=== PATIENT | female | born 1965 | race Caucasian/White ===

== ENCOUNTER 2019-07-12 06:00 | Outpatient (CLI) | payer MEDICARE, MEDICAID, SELFPAY | END 2019-07-12 06:01 | disposition home or self-care (01) | LOC: SOT 08-01 15:34 | PROVIDERS: Family Provider Internal Medicine; PCP Internal Medicine; Visit Provider Internal Medicine | DX: Z76.89 Persons encountering health services in other specified circumstances (principal) ==

== ENCOUNTER 2019-07-19 22:24 | Inpatient (IN) | payer MEDICARE, MEDICAID, SELFPAY ==
[2019-07-19 22:25] VITALS: BP 175/133; PULSE 124; RESP 27; TEMP 37.4; O2SAT 97; BMI 61.7
--- NOTE | 2019-07-19 22:25 | XRR_ITS ---
PROCEDURE INFORMATION: Exam: XR Chest, 1 View Exam date and time: 07/19/2019 10:46 PM Age: 54 years old Clinical indication: Shortness of breath; Chest pain; Type not specified; Additional info: Dyspnea TECHNIQUE: Imaging protocol: XR of the chest Views: 1 view. COMPARISON: CR Chest 1 [place] [id number] 06/13/2019 2:19 PM FINDINGS: Lungs: Allowing for rotation and overlying breast artifacts, the lungs are clear. Pleural space: Unremarkable. No pleural effusion. No pneumothorax. Heart/Mediastinum: Limited evaluation. Bones/joints: Unremarkable. XR/XR chest 1V portable [id number] IMPRESSION: Lungs grossly clear
--- NOTE | 2019-07-19 22:26 | ECG_ITS ---
Measurements Intervals [place] Rate: 115 P: [place]: 0 QRS: 64 QRSD: 85 T: 36 QT: 316 QTc: 438 ATRIAL FIBRILLATION WITH RAPID VENTRICULAR RESPONSE LOW QRS VOLTAGE IN EXTREMITY LEADS POSSIBLE ANTERIOR MYOCARDIAL INFARCTION , PROBABLY OLD Compared to ECG 06/13/2019 16:09:44 Myocardial infarct finding now present Right-axis deviation no longer present Electronically Signed On 07-20-2019 13:51:20 TAX ASSISTANT by Renee Gutierrez M.D. [id number]
--- NOTE | 2019-07-19 22:26 | ED_ITS ---
Entered by Leilani Guzman, acting as scribe for Dory Ruvalcaba MD HPI - SOB/Dyspnea General: Chief Complaint: Shortness of Breath/Dyspnea Stated Complaint: SOB Time Seen by Provider: 07/19/19 22:25 Source: patient and EMS Mode of arrival: EMS Limitations: physical limitation (pt cannot stand alone) History of Present Illness: HPI Narrative: 54 y/o female presents to the ED with complaint of SOB and chest pain. EMS reports hx of asthma and pneumonia. Pt states she was recently admitted here for the similar symptoms. Pt reports having vertigo and is unable to walk; she can transfer, with assistance. Pt states she does not wear O2 at home. MD elicited complaint: shortness of breath (speaks in short phrases) and chest pain Pertinent past history: asthma and pneumonia Onset (ago): hour(s) Context: recent illness (hospitalized with similar symptoms) Timing: progressively worsening Severity: moderate Exacerbating factors: exertion, movement and talking Known history of: asthma Associated symptoms: Reports chest pain; Deny abdominal pain, fever(s), nausea, polyuria or vomiting Related Data: Home oxygen amount: none Review of Systems Const: Denies: fever or chills Eyes: Denies: change in vision ENMT: Denies: throat pain or mouth pain Card: Reports: chest pain and edema Resp: Reports: shortness of breath GI: Denies: abdominal pain, nausea, vomiting or diarrhea : Denies: difficulty urinating Musc: Denies: back pain or joint pain Skin/Breast: Denies: rash Neuro: Denies: headache or behavioral changes Psych: Denies: depression Endo: Denies: excessive urination Leonid/Lymph: Denies: easy bruising All/Imm: Denies: hives PFSH ED PFSH: Statuses (acute, chronic, etc) shown below reflect problem list status as previously entered and may not be historically accurate Medical History (Updated 07/20/19 @ 01:45 by Dory Ruvalcaba MD) Asthma (Acute) Social History Smoking and tobacco status: former smoker Physical Exam Const: COMMON NORMALS: no apparent distress, oriented x3 and healthy appearing HENMT: COMMON NORMALS: normocephalic and external nose normal HEAD & SCALP: normocephalic NOSE: external nose normal Eye: COMMON NORMALS: PERRL PUPIL: Yes PERRL Neck/C-Spine: COMMON NORMALS: full ROM and no lymphadenopathy Chest: COMMONS NORMALS: inspection of chest normal Resp: COMMON NORMALS: normal respiratory effort, no use of accessory muscles and clear to auscultation bilaterally AUSCULTATION: clear to auscultation bilaterally Cardio: COMMON NORMALS: regular rate and regular rhythm RATE: regular rate RHYTHM: regular rhythm GI: COMMON NORMALS: normal to inspection, nondistended, normoactive bowel sounds, soft to palpation, non-tender and no masses PALPATION: Yes soft Back/Pelvis: THORACIC SPINE/UPPER BACK: Yes normal to inspection Extremity: COMMON NORMALS: normal to inspection, full ROM and normal capillary refill Neuro: COMMON NORMALS: oriented x3 Psych: COMMON NORMALS: mental status grossly normal and cooperative Skin: COMMON NORMALS: no rashes or lesions noted GENERAL SKIN EXAM: no rashes or lesions noted Course Vital Signs: Vital signs: Vital Signs Temperature 99.3 F 07/19/19 22:25 Pulse Rate 116 H 07/20/19 02:20 Respiratory Rate 26 H 07/20/19 02:20 Blood Pressure 179/126 07/20/19 02:20 Pulse Oximetry 96 07/20/19 02:20 MDM - SOB/Dyspnea MDM Narrative: Medical decision making narrative: Patient presents here with shortness of breath with asthma exacerbation. Patient is requiring 2 L of oxygen here to stay above 90%. Patient has no signs of pulmonary embolism or cardiac cause. I spoke to hospitalist Dr. Marie who will admit. Lab Data: Labs: Lab Results 07/19/19 07/19/19 07/19/19 Range/Units 22:35 22:35 22:35 WBC 10.6 H (4.0-10.0) 10^3/ uL RBC 4.15 (4.1-5.3) 10^6/u L Hgb 10.1 L (11.5-15.3) g/dL Hct 35.5 L (37.0-47.0) % MCV 85.5 (81-99) fL MCH 24.3 L (28.0-34.0) pg MCHC 28.5 L (30.0-36.0) g/dL RDW 17.2 H (12.1-15.1) % Plt Count 106 L (130-400) 10^3/c mm MPV 11.5 H (7.4-10.4) fL Neut % (Auto) 80.7 % Lymph % (Auto) 10.7 % [place] % (Auto) 5.5 % Eos % (Auto) 2.0 % Baso % (Auto) 0.5 % Neut # (Auto) 8.5 H (1.8-7.7) 10^3/u L Lymph # (Auto) 1.1 (0.8-4.8) 10^3/u L [place] # (Auto) 0.6 (0.2-0.9) 10^3/u L Eos # (Auto) 0.2 (0.0-0.8) 10^3/u L Baso # (Auto) 0.1 (0.0-0.1) 10^3/u L Nucleated RBC % (a uto) 0 % Nucleated RBCs # 0.0 /100WBC Sodium 137 (136-145) mmol/L Potassium 4.1 (3.5-5.1) mmol/L Chloride 101 (98-107) mmol/L Carbon Dioxide 22 (22-29) mmol/L Anion Gap 18.1 (5-19) BUN 17 (6-20) mg/dL Creatinine 1.6 H (0.5-0.9) mg/dL GFR Calculation 33.6 L (90-130) mL/min Glucose 132 H (74-109) mg/dL Calcium 9.4 (8.6-10.0) mg/Dl Total Bilirubin 0.9 (0.15-1.2) mg/dL AST 16 (0-32) U/L ALT 29 (0-33) U/L Alkaline Phosphata se 99 (35-105) IU/L Troponin T Baselin e 25 H (0-10) ng/mL Troponin T 120 Min [place] (0-10) ng/mL Delta Troponin T (0-10) ABS# NT-Pro-B Natriuret Pep 1590 H (0-125) pg/mL Total Protein 7.1 (6.6-8.7) g/dL Albumin 3.8 (3.5-5.2) g/dL Globulin 3.3 (1.3-4.6) g/dL 07/20/19 Range/Units 00:25 WBC (4.0-10.0) 10^3/ uL RBC (4.1-5.3) 10^6/u L Hgb (11.5-15.3) g/dL Hct (37.0-47.0) % MCV (81-99) fL MCH (28.0-34.0) pg MCHC (30.0-36.0) g/dL RDW (12.1-15.1) % Plt Count (130-400) 10^3/c mm MPV (7.4-10.4) fL Neut % (Auto) % Lymph % (Auto) % [place] % (Auto) % Eos % (Auto) % Baso % (Auto) % Neut # (Auto) (1.8-7.7) 10^3/u L Lymph # (Auto) (0.8-4.8) 10^3/u L [place] # (Auto) (0.2-0.9) 10^3/u L Eos # (Auto) (0.0-0.8) 10^3/u L Baso # (Auto) (0.0-0.1) 10^3/u L Nucleated RBC % (a uto) % Nucleated RBCs # /100WBC Sodium (136-145) mmol/L Potassium (3.5-5.1) mmol/L Chloride (98-107) mmol/L Carbon Dioxide (22-29) mmol/L Anion Gap (5-19) BUN (6-20) mg/dL Creatinine (0.5-0.9) mg/dL GFR Calculation (90-130) mL/min Glucose (74-109) mg/dL Calcium (8.6-10.0) mg/Dl Total Bilirubin (0.15-1.2) mg/dL AST (0-32) U/L ALT (0-33) U/L Alkaline Phosphata se (35-105) IU/L Troponin T Baselin e (0-10) ng/mL Troponin T 120 Min [place] 25.54 H (0-10) ng/mL Delta Troponin T 0.54 (0-10) ABS# NT-Pro-B Natriuret Pep (0-125) pg/mL Total Protein (6.6-8.7) g/dL Albumin (3.5-5.2) g/dL Globulin (1.3-4.6) g/dL Imaging Data^: CXR: Attestation: I personally reviewed and interpreted this imaging study as follows: My impression: no acute findings EKG Data^: EKG 1: Attestation: I personally reviewed and interpreted this EKG as follows: EKG Interpretation Date: 07/19/19 EKG interpretation time: 22:32 Interpretation: Afib hr [address] or t wave abnormalities qrs 85 qtc 384 EKG 2: Attestation: I personally reviewed and interpreted this EKG as follows: EKG Interpretation Date: 07/20/19 EKG interpretation time: 00:34 Interpretation: afib hr [address] or t wave abnormalities Discharge Plan Discharge Patient Disposition: Admitted As Inpatient Admit Provider: Diane Marie Clinical Impression: Asthma Qualifiers: Asthma severity: moderate Asthma persistence: unspecified Asthma complication type: with acute exacerbation Qualified Code(s): J45.901 - Unspecified asthma with (acute) exacerbation Condition: Stable Referrals: Mervat Nguyen [Primary Care Provider] - Coding Level of Care Code ED Orthopedic Shoes Salesperson for Chg Fwd Exam Problem Focused The documentation recorded by the Thomas geller Ashley, accurately reflects the service I personally performed and the decisions made by me, Dory Ruvalcaba MD Jul 19, 2019 22:24
--- NOTE | 2019-07-19 22:35 | PC.NURSE ---
[pt placed on monitor, ekg performed and given to ER physician. RN in room.
[2019-07-19 22:37] VITALS: BP 188/99; PULSE 117; RESP 26; O2SAT 95; O2SAT 98
[2019-07-19 22:46] LABS: Basophils # 0.1 10^3/uL (0.0-0.1); Basophils % 0.5 %; Eosinophils # 0.2 10^3/uL (0.0-0.8); Hematocrit 35.5 % (37.0-47.0); Hemoglobin 10.1 g/dL (11.5-15.3); Lymphocytes # 1.1 10^3/uL (0.8-4.8); Lymphocytes % 10.7 %; Mean Corpuscular HGB Conc 28.5 g/dL (30.0-36.0); Mean Corpuscular Hemoglobin 24.3 pg (28.0-34.0); Mean Corpuscular Volume 85.5 fL (81-99); Mean Platelet Volume 11.5 fL (7.4-10.4); Monocytes # 0.6 10^3/uL (0.2-0.9); Monocytes % 5.5 %; Neutrophils # 8.5 10^3/uL (1.8-7.7); Neutrophils % 80.7 %; Nucleated Red Blood Cells % 0 %; Platelet Count 106 10^3/cmm (130-400); Red Blood Count 4.15 10^6/uL (4.1-5.3); Red Cell Distribution Width 17.2 % (12.1-15.1); White Blood Count 10.6 10^3/uL (4.0-10.0)
[2019-07-19 22:49] VITALS: PULSE 118; RESP 18; O2SAT 98
[2019-07-19] MEDS: ipratropium-albuterol 3 mL Neb INHALATION (22:49)
[2019-07-19 22:52] VITALS: PULSE 119; RESP 20; O2SAT 97
[2019-07-19 22:54] VITALS: RESP 27; O2SAT 99
[2019-07-19] MEDS: morphine 4 mg/mL SDV 1 mL IVP (22:54)
[2019-07-19 22:59] LABS: Troponin(5th) Baseline 25 ng/mL (0-10)
[2019-07-19 23:07] LABS: Alanine Aminotransferase 29 U/L (0-33); Albumin Level 3.8 g/dL (3.5-5.2); Alkaline Phosphatase 99 IU/L (35-105); Anion Gap 18.1 (5-19); Aspartate Amino Transferase 16 U/L (0-32); Blood Urea Nitrogen 17 mg/dL (6-20); Calcium 9.4 mg/Dl (8.6-10.0); Carbon Dioxide 22 mmol/L (22-29); Chloride 101 mmol/L (98-107); Globulin 3.3 g/dL (1.3-4.6); Glomerular Filtration Rate 33.6 mL/min (90-130); Glucose 132 mg/dL (74-109); NT Pro B Type Natriuretic Pept 1590 pg/mL (0-125); Potassium 4.1 mmol/L (3.5-5.1); Sodium 137 mmol/L (136-145); Total Bilirubin 0.9 mg/dL (0.15-1.2); Total Protein 7.1 g/dL (6.6-8.7)
[2019-07-19 23:22] LABS: Slide Review Slide Review Perform
[2019-07-19] MEDS: FUROsemide 10 mg/mL SDV 4mL 40 MG IVP (23:36)
[2019-07-19 23:37] VITALS: BP 195/113; PULSE 119; RESP 25; O2SAT 99
[2019-07-19] MEDS: labetalol 5 mg/mL SDV 20mL 20 MG IVP (23:56)
[2019-07-20] VITALS (35 sets, daily range): BP systolic 134–195; BP diastolic 88–132; PULSE 94–129; RESP 17–110; TEMP 36.6–37.3; O2SAT 88–98
--- NOTE | 2019-07-20 00:26 | ECG_ITS ---
Measurements Intervals [place] Rate: 109 P: [place]: 0 QRS: 73 QRSD: 90 T: 32 QT: 353 QTc: 475 ATRIAL FIBRILLATION WITH RAPID VENTRICULAR RESPONSE POSSIBLE ANTERIOR MYOCARDIAL INFARCTION , PROBABLY OLD Compared to ECG 06/13/2019 16:09:44 Myocardial infarct finding now present Right-axis deviation no longer present Electronically Signed On 07-20-2019 14:00:00 SYSTEMS CONSULTANT by Renee Gutierrez M.D. [id number]
[2019-07-20 01:05] LABS: Troponin 5 2HR 25.54 ng/mL (0-10)
[2019-07-20 01:15] LABS: Troponin 5 2HR Delta 0.54 ABS# (0-10)
[2019-07-20] MEDS: cefTRIAXone 1,000 MG in sodium chloride 0.9% (plus) 50 ML 100 MG IV (01:45)
--- NOTE | 2019-07-20 01:48 | PC.NURSE ---
per ED physician to see how patient does without oxygen on. oxygen was taken off patient while nurse was in room. patient was up to bedside commode during this time. upon exertion, patients O2 dropped down to 86% patient became very short of breath. patient was able to hold oxygen at 91% approximately 2 minutes after the exertion. ed physician notified of this.
[2019-07-20] MEDS: azithromycin 500 MG in sodium chloride 0.9% 250 ML 250 MG IV (02:34)
--- NOTE | 2019-07-20 03:26 | P.HP_ITS ---
Providers/Chief Complaint Admitting Physician: Diane Marie MD Primary Care Provider: Mervat Nguyen Chief Complaint: SOB History of Present Illness Ana Lilia Miller is a 54 year old female who presented to the emergency room with chief complaint of difficulty breathing. Symptoms have been gradually coming on. She has had a cough occasionally productive of sputum. She is been getting more short of breath with decreasing exertion. She is unable to lie flat. She is also had some palpitations and a sensation of being a bit dizzy. She was noted to be hypoxemic and placed on oxygen prior to arrival. She is not normally on oxygen. Attempts to take her off of oxygen here resulted in oxygen saturations dropping down to 88%. She was noted to be in atrial fibrillation wi th rapid ventricular response alternating with rate controlled A. fib. She had not had her evening doses of her medicines prior to coming into the emergency room. She reports some low-grade fevers and general malaise. No nausea or vomiting. She has gained some weight and has been more edematous all the way up to her lower abdomen. Denies history of any heart failure. Given persistent hypoxemia requiring oxygen therapy she was being admitted for further evaluation and treatment as indicated. She did receive breathing treatment and some antibiotics in the emergency room. Chest x-ray did not show definitive acute infiltrative process but was limited by body habitus. Review of Systems Const: Reports: fever (Subjective), change in weight (Weight gain), fatigue and malaise Eyes: Reports: change in vision ENMT: Reports: other (Reports facial swelling); Denies: throat pain Card: Reports: chest pain (Intermittent), palpitations, irregular heart rhythm, edema, shortness of breath on exertion and shortness of breath when lying down; Denies: syncope Resp: Reports: productive cough and non-productive cough; Denies: pain on inspiration or coughing up blood GI: Reports: abdominal pain (More abdominal wall pain from the swelling); Denies: nausea, vomiting, diarrhea or constipation : Reports: urinary frequency; Denies: difficulty urinating Musc: Reports: joint pain; Denies: redness Skin/Breast: Reports: itching and sores (And scratches in varying degrees of healing) Neuro: Reports: headache and other (General but nonfocal weakness) Psych: Reports: anxiety (Associated with difficulty breathing) Medications/Allergies Allergies Allergy/AdvReac Type Severity Reaction Status Date / Time Tetracyclines Allergy Severe ALGY-Anaphy Verified 07/19/19 22:35 laxis wool Allergy Intermediate ALGY-Hives Verified 07/19/19 22:35 adhesive AdvReac Unknown Verified 07/19/19 22:35 Artificial Sweetners AdvReac Intermediate ADR-Headach Uncoded 07/20/19 04:24 e Additional Medication Information Additional Medication Information: Patient reports that she has been compliant with her Eliquis, carvedilol, amlodipine. Denies being on any fluid pills. Has been taking a medication for diabetes. Not able to tell me specifics beyond this. PFSH Acute PFSH: Statuses (acute, chronic, etc) shown below reflect problem list status as previously entered and may not be historically accurate Medical History (Updated 07/20/19 @ 05:29 by Diane Marie MD) Atrial fibrillation (Acute) Chronic kidney disease, stage III (moderate) (Acute) Cr has ranged 1.6-2.1 since 11/27 Diabetes mellitus type 2, noninsulin dependent (Acute) last A1c in 03/30 was 7.4 Hypertension (Acute) Hypothyroidism (Acute) last TSH in 03/30 was 6.18 Morbid obesity with BMI of 60.0-69.9, adult (Acute) DELMIS (obstructive sleep apnea) (Acute) Reports not currently compliant with therapy due to contaminated machine Surgical History History of dental surgery (Acute) Status post biopsy of skin (Acute) Family History Other Chronic kidney disease (CKD) Diabetes Hypertension Thyroid disease Social History Smoking and tobacco status: former smoker Alcohol intake: never Substance/Drug Use: never Vitals/I&O/Wt Last Vital Signs Temp 99.1 F 07/20/19 02:58 Pulse 124 H 07/20/19 02:58 Resp 28 H 07/20/19 02:58 BP 182/113 07/20/19 02:58 Pulse Ox 96 07/20/19 02:58 07/19/19 07/19/19 07/20/19 14:59 22:59 06:59 Intake Total 50 / 50 Balance 50 / 50 Weight last 48 hrs Weight 195.045 kg Physical Exam Const: COMMON NORMALS: oriented x3 and alert GENERAL APPEARANCE: in distress (Mild to moderate) NUTRITIONAL APPEARANCE: obese morbidly obese HENMT: COMMON NORMALS: normocephalic, head/scalp atraumatic and moist oral mucous membranes TEETH & GINGIVA: Yes fair dentition Eye: COMMON NORMALS: PERRL and EOMs intact bilaterally Neck/C-Spine: COMMON NORMALS: supple Resp: COMMON NORMALS: no use of accessory muscles, clear to auscultation bilaterally and percussion normal Cardio: JUGULAR VENOUS DISTENTION: JVD positive to the level of the angle of the jaw RATE: tachycardic RHYTHM: abnormal rhythm irregularly irregular GI: COMMON NORMALS: non-tender INSPECTION: Yes localized swelling and Yes pannus present Extremity: GENERAL: Yes edema (3-4+) Neuro: COMMON NORMALS: moves all extremities and no focal motor deficits Psych: COMMON NORMALS: cooperative and affect normal Skin: NARRATIVE SKIN EXAM: peau d'orange, lower abd and suprapubic panus. Chronic stasis changes lower extremities. various scars from old wounds Data Other Data: Other data: Short CBC 07/19/19 Range/Units 22:35 WBC 10.6 H (4.0-10.0) 10^3/ uL Hgb 10.1 L (11.5-15.3) g/dL Hct 35.5 L (37.0-47.0) % Plt Count 106 L (130-400) 10^3/c mm BMP 07/19/19 22:35 Sodium 137 Potassium 4.1 Chloride 101 Carbon Dioxide 22 BUN 17 Creatinine 1.6 H Glucose 132 H Calcium 9.4 Liver Function 07/19/19 Range/Units 22:35 Total Bilirubin 0.9 (0.15-1.2) mg/dL AST 16 (0-32) U/L ALT 29 (0-33) U/L Alkaline Phosphata se 99 (35-105) IU/L Albumin 3.8 (3.5-5.2) g/dL Laboratory Tests 07/19/19 07/20/19 22:35 00:25 Delta Troponin T 0.54 NT-Pro-B Natriuret Pep 1590 H A&P Assessment and plan (1) Shortness of breath: Clinically appears to be from volume overload. Suspect pulmonary hypertension from untreated DELMIS and obesity hypoventilation contributing. Has associated hypoxemia and is requing oxygen which she is not normally on. Last echo in 03/30 was technically difficult study but LVEF was noted to be likely within normal limits Status: Acute Code(s): R06.02 - Shortness of breath (2) Atrial fibrillation: Currently with intermittent RVR, in part due to not having medications this evening Status: Acute Qualifiers: Atrial fibrillation type: longstanding persistent Qualified Code(s): I48.11 - Longstanding persistent atrial fibrillation Code(s): I48.91 - Unspecified atrial fibrillation (3) Hypertension: suboptimally controllled Status: Acute Qualifiers: Hypertension type: renovascular hypertension Qualified Code(s): I15.0 - Renovascular hypertension Code(s): I10 - Essential (primary) hypertension (4) Chronic kidney disease, stage III (moderate): Look to be near baseline creatinine Status: Acute Code(s): N18.3 - Chronic kidney disease, stage 3 (moderate) (5) DELMIS (obstructive sleep apnea): long standing not compliant with therapy for about a year due to contaminated unit Status: Acute Code(s): G47.33 - Obstructive sleep apnea (adult) (pediatric) (6) Diabetes mellitus type 2, noninsulin dependent: on oral medications, last A1c in 03/30 was 7.4 Status: Acute Code(s): E11.9 - Type 2 diabetes mellitus without complications (7) Hypothyroidism: last TSH in 03/30 was 6.18 Status: Acute Qualifiers: Hypothyroidism type: acquired Qualified Code(s): E03.9 - Hypothyroidism, unspecified Code(s): E03.9 - Hypothyroidism, unspecified (8) On apixaban therapy: on for afib Status: Acute Code(s): Z79.01 - oil heaterman (current) use of anticoagulants (9) Thrombocytopenia: Looks to be new since started on eliquis. Denies bleeding, will need to be followed. Status: Acute Code(s): D69.6 - Thrombocytopenia, unspecified (10) Morbid obesity with BMI of 60.0-69.9, adult: Suspect she has some degree of obesity hypoventilation contributing to comorbid conditions Status: Acute Code(s): E66.01 - Morbid (severe) obesity due to excess calories; Z68.44 - Body mass index (BMI) 60.0-69.9, adult Additional A&P Information Additional A&P Information: Inpatient admission IV diuresis Daily weight and I&O Continue coreg which she reports taking Continue eliquis, though need to watch platelets Clarify other meds before resumption Hydralazine prn for now Follow serial cardiac enzymes Recheck TSH Corrective dose insulin RT to assess and treat PT eval and treat Have CM see if they can get vendor for DELMIS machine to replace or clean for her Eliquis provides appropriate VTE coverage Will need home oxygen evaluation prior to discharge Supportive care otherwise FULL code Plans discussed with patient and questions answered Attestations Medical Necessity Statement*: Anticipated stay greater than 2 midnights in a patient currently requiring oxygen he was not usually on any. Clinically she appears volume overloaded and I have initiated some IV diuresis. Will need to monitor response to therapy and evaluate if she will need oxygen at home. Also need to monitor heart rate for need to intervene beyond usual medications. Coding Level of Care Code Acute Analysis Or Research Safety Inspector for Chg Fwd Diagnoses Shortness of breath R06.02 Atrial fibrillation I48.11 Atrial fibrillation type: longstanding persistent Hypertension I15.0 Hypertension type: renovascular hypertension Chronic kidney disease, stage III (moderate) N18.3 DELMIS (obstructive sleep apnea) G47.33 Diabetes mellitus type 2, noninsulin dependent E11.9 Hypothyroidism E03.9 Hypothyroidism type: acquired On apixaban therapy Z79.01 Thrombocytopenia D69.6 Morbid obesity with BMI of 60.0-69.9, adult E66.01; Z68.44
--- NOTE | 2019-07-20 04:26 | ECG_ITS ---
Measurements Intervals [place] Rate: 109 P: CT: 0 QRS: 109 QRSD: 77 T: 38 QT: 333 QTc: 449 ATRIAL FIBRILLATION WITH RAPID VENTRICULAR RESPONSE MARKED RIGHT AXIS DEVIATION [QRS AXIS > 100] LOW QRS VOLTAGE IN PRECORDIAL LEADS [QRS DEFLECTION < 1.0 mV IN CHEST LEADS] POSSIBLE ANTERIOR MYOCARDIAL INFARCTION [30 ms Q WAVE IN V3/V4, OR R < 0.2 mV IN V4], PROBABLY OLD Compared to ECG 06/13/2019 16:09:44 Myocardial infarct finding now present Electronically Signed On 07-20-2019 13:58:46 MASK DESIGNER by Renee Gutierrez M.D. [id number]
[2019-07-20 06:26] LABS: Anion Gap 20.4 (5-19); Blood Urea Nitrogen 19 mg/dL (6-20); Calcium 9.5 mg/Dl (8.6-10.0); Carbon Dioxide 24 mmol/L (22-29); Chloride 98 mmol/L (98-107); Glomerular Filtration Rate 29.3 mL/min (90-130); Glucose 301 mg/dL (74-109); Potassium 4.4 mmol/L (3.5-5.1); Sodium 138 mmol/L (136-145); Thyroid Stimulating Hormone 2.66 uIU/mL (0.27-4.20); Troponin 5 6HR 19.71 ng/L (0-10)
[2019-07-20 06:48] LABS: Troponin 5 6HR Delta -5.29 ng/L (0-12)
[2019-07-20 08:45] LABS: Glucose Point of Care 261 mg/dL (70-110)
[2019-07-20] MEDS: FUROsemide 10 mg/mL SDV 4mL 40 MG IVP ×2 (08:45→19:46)
[2019-07-20] MEDS: docusate sodium 100 mg Capsule PO ×2 (09:22→20:03)
[2019-07-20] MEDS: apixaban 5 mg Tablet PO ×2 (09:22→20:03)
[2019-07-20] MEDS: carvedilol 6.25 mg Tablet PO ×2 (09:22→20:03)
--- NOTE | 2019-07-20 11:20 | P.PN_ITS ---
Subjective Subjective: Interval history: Chart reviewed, labs noted. Patient seen and examined, sitting up in bed, visibly uncomfortable due to lower back pain. Reports feeling persistent fullness in her abdomen, breathing is a little better. Requesting that her home narcotics be resumed, she takes total of 6 tabs of [place] 10-325 per day. Having difficulty with automated cuff BP readings, so will check BP manually. Medications: Reviewed: Yes Medication Review Details: Active Medications Generic Name Dose Route Start Last Admin Trade Name Freq PRN Reason Stop Dose Admin Acetaminophen 650 mg 07/20/19 04:59 Tylenol PO Q6H PRN Mild/Mod Pain Or Temp >/= 101 Albuterol Sulfate 2.5 mg 07/20/19 07:55 07/20/19 08:12 Albuterol INHALATION 2.5 mg Q6H.RESPIRATORY P RN Administration SHORTNESS OF KARRIE TH Apixaban 5 mg 07/20/19 09:00 07/20/19 09:22 Eliquis PO 5 mg BID LUANNE Administration Carvedilol 6.25 mg 07/20/19 09:00 07/20/19 09:22 Coreg PO 6.25 mg BID LUANNE Administration Dextrose 25 ml 07/20/19 05:32 D50w IVP ONCE PRN hypoglycemia prot ocol Protocol Dextrose 50 ml 07/20/19 05:32 D50w IVP PRN PRN hypoglycemia prot ocol Protocol Docusate Sodium 100 mg 07/20/19 09:00 07/20/19 09:22 Colace PO 100 mg BID LUANNE Administration Furosemide 40 mg 07/20/19 05:15 07/20/19 08:45 Lasix IVP 40 mg Q12H LUANNE Administration Glucagon 1 mg 07/20/19 05:32 Glucagen IM ONCE PRN Adult Acute Hypog lycemia Prot. Protocol Hydralazine HCl 10 mg 07/20/19 05:33 Apresoline IVP Q4H PRN SBP>180 or DBP>10 0 Azithromycin 500 m g/ Sodium 250 mls @ 250 mls /hr 07/20/19 01:45 07/20/19 02:34 Chloride IV 250 mls/hr Q24H LUANNE Administration Protocol Dextrose 500 mls @ 100 mls /hr 07/20/19 05:32 D5w IV ONCE PRN Adult Acute Hypog lycemia Prot Protocol Insulin Aspart 0 unit 07/20/19 08:00 07/20/19 09:22 Novolog SUBCUT 8 unit WM&BEDTIME LUANNE Administration Protocol Ondansetron HCl 4 mg 07/20/19 04:59 Zofran PO Q8H PRN NAUSEA Tetracyclines Allergy (Severe, Verified 07/19/19 22:35) ALGY-Anaphylaxis wool Allergy (Intermediate, Verified 07/19/19 22:35) ALGY-Hives adhesive Adverse Reaction (Verified 07/19/19 22:35) Unknown Artificial Sweetners Adverse Reaction (Intermediate, Uncoded 07/20/19 04:24) ADR-Headache Vitals/I&O/Wt Last Vital Signs Temp 98.1 F 07/20/19 07:31 Pulse 110 H 07/20/19 08:18 Resp 20 H 07/20/19 08:13 BP 160/94 07/20/19 07:31 Pulse Ox 97 07/20/19 08:13 07/19/19 07/20/19 07/20/19 22:59 06:59 14:59 Intake Total 50 / 50 220 / 220 Balance 50 / 50 220 / 220 Weight last 48 hrs Weight 216.182 kg Weight 195.045 kg Physical Exam Const: COMMON NORMALS: no apparent distress and oriented x3 GENERAL APPEARANCE: cooperative; not comfortable (looks visibly uncomfortable) NUTRITIONAL APPEARANCE: obese morbidly obese (severely) ORIENTATION/CONSCIOUSNESS: Yes awake HENMT: COMMON NORMALS: normocephalic, head/scalp atraumatic, hearing grossly normal bilaterally and moist oral mucous membranes HEAD & SCALP: normocephalic and atraumatic Eye: COMMON NORMALS: PERRL, EOMs intact bilaterally and conjunctivae normal CONJUNCTIVA: Yes conjunctivae normal PUPIL: Yes PERRL Neck/C-Spine: COMMON NORMALS: full ROM GENERAL: Yes normal visual inspection and Yes trachea midline Resp: COMMON NORMALS: normal respiratory effort, no retractions, no use of accessory muscles and clear to auscultation bilaterally EFFORT & INSPECTION: Yes able to speak in complete sentences, Yes symmetric chest movement and No tachypneic AUSCULTATION: clear to auscultation bilaterally OTHER: auscultation significantly limited by body habitus Cardio: COMMON NORMALS: regular rate, regular rhythm, S1 normal heart sound, S2 normal heart sound and no murmurs RATE: regular rate RHYTHM: regular rhythm HEART SOUNDS: S1 normal and S2 normal OTHER: auscultation limited by body habitus, noted hypertension GI: COMMON NORMALS: normal to inspection, nondistended, normoactive bowel sounds, soft to palpation and non-tender PALPATION: Yes soft Back/Pelvis: COMMON NORMALS: thoracic and lumbar spine normal to inspection LUMBAR SPINE/LOWER BACK: Yes lumbar spinal tenderness (bilaterally) Lumbar spinal tenderness location: L4 and L5 Extremity: COMMON NORMALS: normal to inspection, full ROM and no clubbing, cyanosis or edema; negative for no pedal edema Neuro: COMMON NORMALS: oriented x3, moves all extremities, no focal motor deficits and no sensory deficits noted Psych: COMMON NORMALS: mental status grossly normal, thought process normal, cooperative, affect normal and speech normal SPEECH: Yes normal speech THOUGHT PROCESS: normal thought process Skin: COMMON NORMALS: no rashes or lesions noted, no jaundice, no petechiae and no mottling GENERAL SKIN EXAM: no rashes or lesions noted A&P Assessment and plan (1) Shortness of breath: -likely multifactorial given fluid overload, likely pulmonary HTN, obesity hypoventilation syndrome -not oxygen dependent at baseline; supplemental oxygen as needed -continue monitoring respiratory status -on IV diuresis with Lasix; titrate as needed for optimal response. If suboptimal, may consider Bumex -Echo done in 03/2019 was technically quite limited, has prior Echo from 2016 showing EF-55% -daily weights, monitor Is & Os Status: Acute Code(s): R06.02 - Shortness of breath (2) Hypertension: -quite hypertensive since admission, some improvement in BP noted this AM -continue to monitor vital signs -continue oral antihypertensives, hydralazine PRN Status: Acute Qualifiers: Hypertension type: renovascular hypertension Qualified Code(s): I15.0 - Renovascular hypertension Code(s): I10 - Essential (primary) hypertension (3) Chronic kidney disease, stage III (moderate): -has CKD stage 3; baseline Cr appears to be 1.7-2 -avoid nephrotoxins, renally dose meds -continue to monitor renal function, lytes particularly with diuresis -continue to monitor urine output Status: Acute Code(s): N18.3 - Chronic kidney disease, stage 3 (moderate) (4) Atrial fibrillation: -has hx of known atrial fibrillation, with aberrant conduction; seen by cardiology during most recent admission in 06/2019 -on AC with Eliquis -telemetry monitoring -on Coreg, titrate as needed for appropriate rate control -TSH, K wnl -noted troponins, ECGs Status: Acute Qualifiers: Atrial fibrillation type: longstanding persistent Qualified Code(s): I48.11 - Longstanding persistent atrial fibrillation Code(s): I48.91 - Unspecified atrial fibrillation Additional A&P Information Additional A&P Information: -Severe morbid obesity: BMI > 65 kg/m2 -Acute thrombocytopenia; baseline platelet count wnl -DELMIS; need to determine if has appropriate CPAP/BiPAP at home -NIDDM type II; A1c-7.4 (03/2019). Accuchecks, cardiac diabetic diet as tolerated; ISS -Hypothyroidism; TSH wnl, continue Levothyroxine -Multilevel DJD, Chronic back and knee pain; will resume narcotics particularly as pain likely affecting BP -DVT ppx not needed as on Eliquis -PT/OT evaluations -fall precautions -may need bariatric bed -Dispo: home -Code status: FULL code Attestations Medical Necessity Statement*: Patient requires hospitalization for continued IV diuresis, telemetry monitoring pending appropriate heart rate control. 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
[2019-07-20 11:58] LABS: Glucose Point of Care 253 mg/dL (70-110)
--- NOTE | 2019-07-20 15:36 | PC.CHAP ---
Pastoral Care Encounter/Spiritual Assessment Type of Contact [] Declined breaker layer visit [] Patient/Family/Request visit [] Outpatient visit [] Follow-up visit [] Physician referral [] Code/Alert [] Routine visit [] Staff referral [] Actively dying [x] Patient sleeping [] Family support [] [] Out of room [] Palliative care [] [] Receiving care in room [] Pre-surgical visit [] Trauma [] Long length of stay [] ICU visit [] Other: Relational/Emotional Strength [] Patient feels connected with others/family/visitors/staff [] Distress [] Loneliness/isolation [] Abandonment Spirituality of Patient [] Person of [place] [] Attends Congregation of their [place] [] Believes in Prayer [] Reads Bible or Orthodoxy materials [] There are Spiritual issues to be addressed Top Lift Trimmer Interventions [] Prayer [] Active listening [] Non-anxious presence [] Spiritual/emotional support [] Crisis/trauma care [] Spiritual counseling [] Bereavement support [] Provided bereavement packet [] Provided Bible/devotional materials [] Provided toy/stuffed animal, coloring book to patient or family member [] Completed spiritual assessment [] Provided Communion [] Anointing/[place] [] Salvation [] Other: Impact on Illness or Injury [] Angry [] Fearful [] Anxious [] Often cries [] Exhaustion [] Unable to work [] Unable to attend anabaptist [] Unable to walk/stand [] Unable to read [] Unable to drive [] Unable to eat/drink [] Unable to sleep [] Unable to be with family [] Other: Summary Patient is sleeping Time spent with patient 2min
[2019-07-20] MEDS: HYDROcodone-acetaminophen 10-325 mg Tablet 1 TAB PO (16:39)
[2019-07-20 17:27] LABS: Glucose Point of Care 172 mg/dL (70-110)
[2019-07-20 21:08] LABS: Glucose Point of Care 214 mg/dL (70-110)
[2019-07-21] VITALS (8 sets, daily range): BP systolic 120–148; BP diastolic 70–84; PULSE 66–104; RESP 16–19; TEMP 36.4–37.2; O2SAT 94–97
[2019-07-21] MEDS: azithromycin 500 MG in sodium chloride 0.9% 250 ML 250 MG IV (02:26)
[2019-07-21 05:29] LABS: Basophils % 0.3 %; Eosinophils # 0.1 10^3/uL (0.0-0.8); Eosinophils % 0.7 %; Hematocrit 35.4 % (37.0-47.0); Lymphocytes # 1.5 10^3/uL (0.8-4.8); Lymphocytes % 12.1 %; Mean Corpuscular HGB Conc 28.2 g/dL (30.0-36.0); Mean Corpuscular Hemoglobin 24.2 pg (28.0-34.0); Mean Corpuscular Volume 85.7 fL (81-99); Mean Platelet Volume 11.5 fL (7.4-10.4); Monocytes # 0.7 10^3/uL (0.2-0.9); Monocytes % 5.5 %; Neutrophils # 9.9 10^3/uL (1.8-7.7); Neutrophils % 80.7 %; Nucleated Red Blood Cells % 0.2 %; Platelet Count 332 10^3/cmm (130-400); Red Blood Count 4.13 10^6/uL (4.1-5.3); Red Cell Distribution Width 17.2 % (12.1-15.1); White Blood Count 12.3 10^3/uL (4.0-10.0)
[2019-07-21 05:44] LABS: Anion Gap 15.2 (5-19); Blood Urea Nitrogen 31 mg/dL (6-20); Calcium 9.3 mg/Dl (8.6-10.0); Carbon Dioxide 28 mmol/L (22-29); Chloride 98 mmol/L (98-107); Glomerular Filtration Rate 27.5 mL/min (90-130); Glucose 176 mg/dL (74-109); Magnesium 2.2 mg/dL (1.7-2.3); Potassium 4.2 mmol/L (3.5-5.1); Sodium 137 mmol/L (136-145)
[2019-07-21 06:48] LABS: Glucose Point of Care 136 mg/dL (70-110)
[2019-07-21] MEDS: FUROsemide 10 mg/mL SDV 4mL 40 MG IVP ×2 (08:41→21:25)
[2019-07-21] MEDS: apixaban 5 mg Tablet PO ×2 (08:47→18:46)
[2019-07-21] MEDS: carvedilol 6.25 mg Tablet PO ×2 (08:47→18:46)
[2019-07-21] MEDS: docusate sodium 100 mg Capsule PO ×2 (08:48→18:46)
[2019-07-21 12:15] LABS: Glucose Point of Care 145 mg/dL (70-110)
--- NOTE | 2019-07-21 13:44 | P.PN_ITS ---
Subjective Subjective: Interval history: AM labs noted, no documentation of overnight urine output. Blood pressure is much better controlled today, she is sitting comfortably in bariatric recliner by bedside, OT is currently working with her. She is requesting change to her diet to allow for soft drinks and sugar. Concerned that she may be developing intertrigo in the area beneath the pannus so we will add nystatin powder and inter-dry. She is currently on room air and does not appear to be in any respiratory distress. Medications: Reviewed: Yes Medication Review Details: Active Medications Generic Name Dose Route Start Last Admin Trade Name Freq PRN Reason Stop Dose Admin Acetaminophen 650 mg 07/20/19 04:59 Tylenol PO Q6H PRN Mild/Mod Pain Or Temp >/= 101 Hydrocodone Bitart /Acetaminophen 1 tab 07/20/19 16:10 07/20/19 16:39 [place] 10-325 Mg PO 1 tab QID PRN Administration MODERATE TO SEVER E PAIN Albuterol Sulfate 2.5 mg 07/20/19 07:55 07/20/19 08:12 Albuterol INHALATION 2.5 mg Q6H.RESPIRATORY P RN Administration SHORTNESS OF KARRI[place] TH Apixaban 5 mg 07/20/19 09:00 07/21/19 08:47 Eliquis PO 5 mg BID LUANNE Administration Carvedilol 6.25 mg 07/20/19 09:00 07/21/19 08:47 Coreg PO 6.25 mg BID LUANNE Administration Dextrose 25 ml 07/20/19 05:32 D50w IVP ONCE PRN hypoglycemia prot ocol Protocol Dextrose 50 ml 07/20/19 05:32 D50w IVP PRN PRN hypoglycemia prot ocol Protocol Docusate Sodium 100 mg 07/20/19 09:00 07/21/19 08:48 Colace PO 100 mg BID LUANNE Administration Furosemide 40 mg 07/20/19 05:15 07/21/19 08:41 Lasix IVP 40 mg Q12H LUANNE Administration Glucagon 1 mg 07/20/19 05:32 Glucagen IM ONCE PRN Adult Acute Hypog lycemia Prot. Protocol Hydralazine HCl 10 mg 07/20/19 05:33 Apresoline IVP Q4H PRN SBP>180 or DBP>10 0 Azithromycin 500 m g/ Sodium 250 mls @ 250 mls /hr 07/20/19 01:45 07/21/19 02:26 Chloride IV 250 mls/hr Q24H LUANNE Administration Protocol Dextrose 500 mls @ 100 mls /hr 07/20/19 05:32 D5w IV ONCE PRN Adult Acute Hypog lycemia Prot Protocol Insulin Aspart 0 unit 07/20/19 08:00 07/21/19 13:16 Novolog SUBCUT 2 unit WM&BEDTIME LUANNE Administration Protocol Ondansetron HCl 4 mg 07/20/19 04:59 Zofran PO Q8H PRN NAUSEA Tetracyclines Allergy (Severe, Verified 07/19/19 22:35) ALGY-Anaphylaxis wool Allergy (Intermediate, Verified 07/19/19 22:35) ALGY-Hives adhesive Adverse Reaction (Verified 07/19/19 22:35) Unknown Artificial Sweetners Adverse Reaction (Intermediate, Uncoded 07/20/19 04:24) ADR-Headache Vitals/I&O/Wt Last Vital Signs Temp 97.6 F 07/21/19 12:00 Pulse 103 H 07/21/19 12:00 Resp 19 H 07/21/19 12:00 BP 126/76 07/21/19 12:00 Pulse Ox 97 07/21/19 12:00 07/20/19 07/21/19 07/21/19 22:59 06:59 14:59 Intake Total 220 / 900 112 / 112 Balance 220 / -1100 112 / 112 Weight last 48 hrs Weight 218.858 kg Weight 216.182 kg Weight 195.045 kg Physical Exam Const: COMMON NORMALS: no apparent distress and oriented x3 GENERAL APPEARANCE: cooperative and comfortable NUTRITIONAL APPEARANCE: obese morbidly obese (severely) ORIENTATION/CONSCIOUSNESS: Yes awake HENMT: COMMON NORMALS: normocephalic, head/scalp atraumatic, hearing grossly normal bilaterally and moist oral mucous membranes HEAD & SCALP: normocephalic and atraumatic Eye: COMMON NORMALS: PERRL, EOMs intact bilaterally and conjunctivae normal CONJUNCTIVA: Yes conjunctivae normal PUPIL: Yes PERRL Neck/C-Spine: COMMON NORMALS: full ROM GENERAL: Yes normal visual inspection and Yes trachea midline Resp: COMMON NORMALS: normal respiratory effort, no retractions, no use of accessory muscles and clear to auscultation bilaterally EFFORT & INSPECTION: Yes able to speak in complete sentences, Yes symmetric chest movement and No tachypneic AUSCULTATION: clear to auscultation bilaterally OTHER: auscultation significantly limited by body habitus Cardio: COMMON NORMALS: regular rate, regular rhythm, S1 normal heart sound, S2 normal heart sound and no murmurs RATE: regular rate RHYTHM: regular rhythm HEART SOUNDS: S1 normal and S2 normal OTHER: auscultation limited by body habitus GI: COMMON NORMALS: normal to inspection, nondistended, normoactive bowel sounds, soft to palpation and non-tender PALPATION: Yes soft Back/Pelvis: COMMON NORMALS: thoracic and lumbar spine normal to inspection LUMBAR SPINE/LOWER BACK: Yes lumbar spinal tenderness (bilaterally) Lumbar spinal tenderness location: L4 and L5 Extremity: COMMON NORMALS: normal to inspection, full ROM and no clubbing, cyanosis or edema; negative for no pedal edema Neuro: COMMON NORMALS: oriented x3, moves all extremities, no focal motor deficits and no sensory deficits noted Psych: COMMON NORMALS: mental status grossly normal, thought process normal, cooperative, affect normal and speech normal SPEECH: Yes normal speech THOUGHT PROCESS: normal thought process Skin: COMMON NORMALS: no rashes or lesions noted, no jaundice, no petechiae and no mottling GENERAL SKIN EXAM: no rashes or lesions noted A&P Assessment and plan (1) Shortness of breath: -likely multifactorial given fluid overload, likely pulmonary HTN, obesity hypoventilation syndrome -not oxygen dependent at baseline; supplemental oxygen as needed -continue monitoring respiratory status -on IV diuresis with Lasix; titrate as needed for optimal response. If sub optimal, may consider Bumex -Echo done in 03/2019 was technically quite limited, has prior Echo from 2016 showing EF-55% -daily weights, monitor Is & Os Status: Acute Code(s): R06.02 - Shortness of breath (2) Hypertension: -quite hypertensive since admission, some improvement in BP noted this AM -continue to monitor vital signs -continue oral antihypertensives, hydralazine PRN Status: Acute Qualifiers: Hypertension type: renovascular hypertension Qualified Code(s): I15.0 - Renovascular hypertension Code(s): I10 - Essential (primary) hypertension (3) Chronic kidney disease, stage III (moderate): -has CKD stage 3; baseline Cr appears to be 1.7-2 -avoid nephrotoxins, renally dose meds -continue to monitor renal function, lytes particularly with diuresis -continue to monitor urine output Status: Acute Code(s): N18.3 - Chronic kidney disease, stage 3 (moderate) (4) Atrial fibrillation: -has hx of known atrial fibrillation, with aberrant conduction; seen by cardiology during most recent admission in 06/2019 -on AC with Eliquis -telemetry monitoring -on Coreg, titrate as needed for appropriate rate control -TSH, K wnl -noted troponins, ECGs Status: Acute Qualifiers: Atrial fibrillation type: longstanding persistent Qualified Code(s): I48.11 - Longstanding persistent atrial fibrillation Code(s): I48.91 - Unspecified atrial fibrillation Additional A&P Information Additional A&P Information: -Severe morbid obesity: BMI > 65 kg/m2 -Acute thrombocytopenia; baseline platelet count wnl -DELMIS; need to determine if has appropriate CPAP/BiPAP at home -NIDDM type II; A1c-7.4 (03/2019). Accuchecks, cardiac diabetic diet as ines erated; ISS -Hypothyroidism; TSH wnl, continue Levothyroxine -Multilevel DJD, Chronic back and knee pain; will resume narcotics particularly as pain likely affecting BP -DVT ppx not needed as on Eliquis -PT/OT evaluations appreciated -fall precautions -has bariatric recliner -Dispo: home -Code status: FULL code Attestations Medical Necessity Statement*: Patient requires hospitalization for continued IV diuresis, monitoring of respiratory and hemodynamic status. Time Spent in Patient Care: 16 - 35 minutes (>than 50% of time spent in counselling and/or direct pt care on unit) . Coding Level of Care Code Acute Head Of Cytogenetics for Chg Fwd Exam Problem Focused Diagnoses Shortness of breath R06.02 Hypertension I15.0 Hypertension type: renovascular hypertension Chronic kidney disease, stage III (moderate) N18.3 Atrial fibrillation I48.11 Atrial fibrillation type: longstanding persistent
[2019-07-21 23:23] LABS: Glucose Point of Care 122 mg/dL (70-110)
[2019-07-21 23:23] LABS: Glucose Point of Care 144 mg/dL (70-110)
[2019-07-22] VITALS (9 sets, daily range): BP systolic 131–160; BP diastolic 70–80; PULSE 21–102; RESP 16–20; TEMP 36.8–37.1; O2SAT 93–98
[2019-07-22] MEDS: HYDROcodone-acetaminophen 10-325 mg Tablet 1 TAB PO (02:12)
[2019-07-22] MEDS: azithromycin 500 MG in sodium chloride 0.9% 250 ML 250 MG IV (02:40)
[2019-07-22 06:30] LABS: Anion Gap 18.2 (5-19); Blood Urea Nitrogen 38 mg/dL (6-20); Calcium 9.2 mg/Dl (8.6-10.0); Carbon Dioxide 29 mmol/L (22-29); Chloride 96 mmol/L (98-107); Glomerular Filtration Rate 23.3 mL/min (90-130); Glucose 114 mg/dL (74-109); Potassium 4.2 mmol/L (3.5-5.1); Sodium 139 mmol/L (136-145)
[2019-07-22 07:16] LABS: Glucose Point of Care 105 mg/dL (70-110)
[2019-07-22] MEDS: FUROsemide 10 mg/mL SDV 4mL 40 MG IVP (08:30)
[2019-07-22] MEDS: docusate sodium 100 mg Capsule PO ×2 (08:37→17:34)
[2019-07-22] MEDS: carvedilol 6.25 mg Tablet PO ×2 (08:37→17:34)
[2019-07-22] MEDS: apixaban 5 mg Tablet PO ×2 (08:37→17:34)
[2019-07-22] MEDS: nystatin powder 15 gm Btl 1 APPLIC TOPICAL ×2 (08:38→17:34)
--- NOTE | 2019-07-22 09:31 | P.PN_ITS ---
Subjective Subjective: Interval history: AM labs noted, had 900 mL urine output overnight. Will hold Lasix due to noted worsening renal function. Patient seen and examined, resting in bariatric recliner, on 2 L nasal cannula. Reports having dry mouth and thinks she is having a headache from caffeine withdrawal. Discussed need to restrict fluids to avoid continued fluid overload. Medications: Reviewed: Yes Medication Review Details: Active Medications Generic Name Dose Route Start Last Admin Trade Name Freq PRN Reason Stop Dose Admin Acetaminophen 650 mg 07/20/19 04:59 Tylenol PO Q6H PRN Mild/Mod Pain Or Temp >/= 101 Hydrocodone Bitart /Acetaminophen 1 tab 07/20/19 16:10 07/22/19 02:12 [place] 10-325 Mg PO 1 tab QID PRN Administration MODERATE TO SEVER E PAIN Albuterol Sulfate 2.5 mg 07/20/19 07:55 07/21/19 20:41 Albuterol INHALATION 2.5 mg Q6H.RESPIRATORY P RN Administration SHORTNESS OF KARRIE TH Apixaban 5 mg 07/20/19 09:00 07/22/19 08:37 Eliquis PO 5 mg BID LUANNE Administration Carvedilol 6.25 mg 07/20/19 09:00 07/22/19 08:37 Coreg PO 6.25 mg BID LUANNE Administration Dextrose 25 ml 07/20/19 05:32 D50w IVP ONCE PRN hypoglycemia prot ocol Protocol Dextrose 50 ml 07/20/19 05:32 D50w IVP PRN PRN hypoglycemia prot ocol Protocol Docusate Sodium 100 mg 07/20/19 09:00 07/22/19 08:37 Colace PO 100 mg BID LUANNE Administration Furosemide 40 mg 07/20/19 05:15 07/22/19 08:30 Lasix IVP 40 mg Q12H LUANNE Administration Glucagon 1 mg 07/20/19 05:32 Glucagen IM ONCE PRN Adult Acute Hypog lycemia Prot. Protocol Hydralazine HCl 10 mg 07/20/19 05:33 Apresoline IVP Q4H PRN SBP>180 or DBP>10 0 Azithromycin 500 m g/ Sodium 250 mls @ 250 mls /hr 07/20/19 01:45 07/22/19 02:40 Chloride IV 250 mls/hr Q24H LUANNE Administration Protocol Dextrose 500 mls @ 100 mls /hr 07/20/19 05:32 D5w IV ONCE PRN Adult Acute Hypog lycemia Prot Protocol Insulin Aspart 0 unit 07/20/19 08:00 07/22/19 08:37 Novolog SUBCUT Not Given WM&BEDTIME REPLACED BY [facility] Protocol Nystatin 1 applic 07/21/19 18:00 07/22/19 08:38 Nystatin Powder TOPICAL 1 applic BID LUANNE Administration Ondansetron HCl 4 mg 07/20/19 04:59 Zofran PO Q8H PRN NAUSEA Tetracyclines Allergy (Severe, Verified 07/19/19 22:35) ALGY-Anaphylaxis wool Allergy (Intermediate, Verified 07/19/19 22:35) ALGY-Hives adhesive Adverse Reaction (Verified 07/19/19 22:35) Unknown Artificial Sweetners Adverse Reaction (Intermediate, Uncoded 07/20/19 04:24) ADR-Headache Vitals/I&O/Wt Last Vital Signs Temp 98.6 F 07/22/19 07:39 Pulse 63 07/22/19 08:31 Resp 16 07/22/19 08:31 BP 150/80 07/22/19 07:39 Pulse Ox 98 07/22/19 08:31 07/21/19 07/22/19 07/22/19 22:59 06:59 14:59 Intake Total 490 / 602 490 / 1092 600 / 600 Output Total 900 / 900 Balance 490 / 602 -410 / 192 600 / 600 Weight last 48 hrs Weight 210.739 kg Weight 218.858 kg Physical Exam Const: COMMON NORMALS: no apparent distress and oriented x3 GENERAL APPEARANCE: cooperative and comfortable NUTRITIONAL APPEARANCE: obese morbidly obese (severely) ORIENTATION/CONSCIOUSNESS: Yes awake HENMT: COMMON NORMALS: normocephalic, head/scalp atraumatic, hearing grossly normal bilaterally and moist oral mucous membranes HEAD & SCALP: normocephalic and atraumatic Eye: COMMON NORMALS: PERRL, EOMs intact bilaterally and conjunctivae normal CONJUNCTIVA: Yes conjunctivae normal PUPIL: Yes PERRL Neck/C-Spine: COMMON NORMALS: full ROM GENERAL: Yes normal visual inspection and Yes trachea midline Resp: COMMON NORMALS: normal respiratory effort, no retractions, no use of accessory muscles and clear to auscultation bilaterally EFFORT & INSPECTION: Yes able to speak in complete sentences, Yes symmetric chest movement and No tachypneic AUSCULTATION: clear to auscultation bilaterally OTHER: auscultation significantly limited by body habitus Cardio: COMMON NORMALS: regular rate, regular rhythm, S1 normal heart sound, S2 normal heart sound and no murmurs RATE: regular rate RHYTHM: regular rhythm HEART SOUNDS: S1 normal and S2 normal OTHER: auscultation limited by body habitus GI: COMMON NORMALS: normal to inspection, nondistended, normoactive bowel sounds, soft to palpation and non-tender PALPATION: Yes soft Back/Pelvis: COMMON NORMALS: thoracic and lumbar spine normal to inspection LUMBAR SPINE/LOWER BACK: Yes lumbar spinal tenderness (bilaterally) Lumbar spinal tenderness location: L4 and L5 Extremity: COMMON NORMALS: normal to inspection, full ROM and no clubbing, cyanosis or edema; negative for no pedal edema Neuro: COMMON NORMALS: oriented x3, moves all extremities, no focal motor deficits and no sensory deficits noted Psych: COMMON NORMALS: mental status grossly normal, thought process normal, cooperative, affect normal and speech normal SPEECH: Yes normal speech THOUGHT PROCESS: normal thought process Skin: COMMON NORMALS: no jaundice, no petechiae and no mottling NARRATIVE SKIN EXAM: -Noted well-demarcated erythematous macular rash in area involving pannus and extending into the upper thigh area bilaterally, warm to the touch A&P Assessment and plan (1) Shortness of breath: -likely multifactorial given fluid overload, likely pulmonary HTN, obesity hypoventilation syndrome -not oxygen dependent at baseline; supplemental oxygen as needed -continue monitoring respiratory status -will hold diuresis for now due to noted worsening renal impairment -Echo done in 03/2019 was technically quite limited, has prior Echo from 2016 showing EF-55% -daily weights, monitor Is & Os, start on fluid restriction, 1 L/day Status: Acute Code(s): R06.02 - Shortness of breath (2) Hypertension: -quite hypertensive initially, BP control improved -continue to monitor vital signs -continue oral antihypertensives, hydralazine PRN Status: Acute Qualifiers: Hypertension type: renovascular hypertension Qualified Code(s): I15.0 - Renovascular hypertension Code(s): I10 - Essential (primary) hypertension (3) Chronic kidney disease, stage III (moderate): -has CKD stage 3; baseline Cr appears to be 1.7-2 -avoid nephrotoxins, renally dose meds -continue to monitor renal function, lytes particularly with diuresis -continue to monitor urine output Status: Acute Code(s): N18.3 - Chronic kidney disease, stage 3 (moderate) (4) Atrial fibrillation: -has hx of known atrial fibrillation, with aberrant conduction; seen by cardiology during most recent admission in 06/2019 -on AC with Eliquis -telemetry monitoring -on Coreg, titrate as needed for appropriate rate control -TSH, K wnl -noted troponins, ECGs Status: Acute Qualifiers: Atrial fibrillation type: longstanding persistent Qualified Code(s): I48.11 - Longstanding persistent atrial fibrillation Code(s): I48.91 - Unspecified atrial fibrillation Additional A&P Information Additional A&P Information: -Severe morbid obesity: BMI > 65 kg/m2 -Acute thrombocytopenia; baseline platelet count wnl -DELMIS; need to determine if has appropriate CPAP/BiPAP at home -NIDDM type II; A1c-7.4 (03/2019). Accuchecks, cardiac diabetic diet as tolerated; ISS -Hypothyroidism; TSH wnl, continue Levothyroxine -Multilevel DJD, Chronic back and knee pain; will resume narcotics particularly as pain likely affecting BP -Noted tinea corporis involving lower abdominal and upper thigh area bilaterally; keep areas clean and dry, continue nystatin powder and interdry -DVT ppx not needed as on Eliquis -PT/OT evaluations appreciated -fall precautions -has bariatric recliner -Dispo: home -Code status: FULL code Attestations Medical Necessity Statement*: Patient requires hospitalization for continued management of acute CHF exacerbation, need to hold diuresis today due to noted worsening renal function. Time Spent in Patient Care: 16 - 35 minutes (>than 50% of time spent in counselling and/or direct pt care on unit) . Coding Level of Care Code Acute Slab Conditioner Supervisor for Chg Fwd Exam Problem Focused Diagnoses Shortness of breath R06.02 Hypertension I15.0 Hypertension type: renovascular hypertension Chronic kidney disease, stage III (moderate) N18.3 Atrial fibrillation I48.11 Atrial fibrillation type: longstanding persistent
[2019-07-22 12:06] LABS: Glucose Point of Care 138 mg/dL (70-110)
[2019-07-22 17:03] LABS: Glucose Point of Care 133 mg/dL (70-110)
[2019-07-22 17:14] LABS: Basophils % 0.3 %; Eosinophils # 0.3 10^3/uL (0.0-0.8); Eosinophils % 2.4 %; Hematocrit 38.6 % (37.0-47.0); Lymphocytes # 1.3 10^3/uL (0.8-4.8); Lymphocytes % 10.9 %; Mean Corpuscular HGB Conc 28.5 g/dL (30.0-36.0); Mean Corpuscular Hemoglobin 25.6 pg (28.0-34.0); Mean Corpuscular Volume 89.8 fL (81-99); Mean Platelet Volume 11.3 fL (7.4-10.4); Monocytes # 0.6 10^3/uL (0.2-0.9); Monocytes % 5.5 %; Neutrophils # 9.3 10^3/uL (1.8-7.7); Neutrophils % 80.2 %; Nucleated Red Blood Cells % 0 %; Platelet Count 337 10^3/cmm (130-400); Red Cell Distribution Width 17.6 % (12.1-15.1); White Blood Count 11.6 10^3/uL (4.0-10.0)
[2019-07-22 21:17] LABS: Glucose Point of Care 109 mg/dL (70-110)
[2019-07-23] VITALS (8 sets, daily range): BP systolic 140–220; BP diastolic 66–96; PULSE 89–110; RESP 16–22; TEMP 36.7–37.3; O2SAT 93–97
[2019-07-23] MEDS: azithromycin 500 MG in sodium chloride 0.9% 250 ML 250 MG IV (01:31)
[2019-07-23] MEDS: HYDROcodone-acetaminophen 10-325 mg Tablet 1 TAB PO (01:42)
[2019-07-23 06:47] LABS: Anion Gap 15.1 (5-19); Blood Urea Nitrogen 36 mg/dL (6-20); Calcium 9.2 mg/Dl (8.6-10.0); Carbon Dioxide 29 mmol/L (22-29); Chloride 98 mmol/L (98-107); Glomerular Filtration Rate 27.5 mL/min (90-130); Glucose 170 mg/dL (74-109); Potassium 4.1 mmol/L (3.5-5.1); Sodium 138 mmol/L (136-145)
[2019-07-23 07:23] LABS: Glucose Point of Care 119 mg/dL (70-110)
[2019-07-23] MEDS: carvedilol 6.25 mg Tablet PO ×2 (08:08→17:21)
[2019-07-23] MEDS: nystatin powder 15 gm Btl 1 APPLIC TOPICAL ×2 (08:08→17:24)
[2019-07-23] MEDS: apixaban 5 mg Tablet PO ×2 (08:08→17:21)
[2019-07-23 11:07] LABS: Glucose Point of Care 128 mg/dL (70-110)
[2019-07-23] MEDS: hyDRALAzine 20 mg/mL INJ 1 mL 10 MG IVP (11:25)
--- NOTE | 2019-07-23 12:38 | P.PN_ITS ---
Subjective Subjective: Interval history: AM labs noted, improved renal function, Lasix on hold, no documentation of overnight urine output. Patient seen and examined, seems very sleepy today, no complaints other than feeling fatigued. Noted to have significant hypotension around 1130, received dose of hydralazine and blood pressure has remained stable. Medications: Reviewed: Yes Medication Review Details: Active Medications Generic Name Dose Route Start Last Admin Trade Name Freq PRN Reason Stop Dose Admin Acetaminophen 650 mg 07/20/19 04:59 Tylenol PO Q6H PRN Mild/Mod Pain Or Temp >/= 101 Hydrocodone Bitart /Acetaminophen 1 tab 07/20/19 16:10 07/23/19 01:42 [place] 10-325 Mg PO 1 tab QID PRN Administration MODERATE TO SEVER E PAIN Albuterol Sulfate 2.5 mg 07/20/19 07:55 07/22/19 20:50 Albuterol INHALATION 2.5 mg Q6H.RESPIRATORY P RN Administration SHORTNESS OF [place]ARRI[place] TH Apixaban 5 mg 07/20/19 09:00 07/23/19 08:08 Eliquis PO 5 mg BID LUANNE Administration Carvedilol 6.25 mg 07/20/19 09:00 07/23/19 08:08 Coreg PO 6.25 mg BID LUANNE Administration Dextrose 25 ml 07/20/19 05:32 D50w IVP ONCE PRN hypoglycemia prot ocol Protocol Dextrose 50 ml 07/20/19 05:32 D50w IVP PRN PRN hypoglycemia prot ocol Protocol Docusate Sodium 100 mg 07/20/19 09:00 07/23/19 08:08 Colace PO Not Given BID LUANNE Furosemide 40 mg 07/20/19 05:15 07/22/19 08:30 Lasix IVP 40 mg Q12H LUANNE Administration Glucagon 1 mg 07/20/19 05:32 Glucagen IM ONCE PRN Adult Acute Hypog lycemia Prot. Protocol Hydralazine HCl 10 mg 07/20/19 05:33 07/23/19 11:25 Apresoline IVP 10 mg Q4H PRN Administration SBP>180 or DBP>10 0 Azithromycin 500 m g/ Sodium 250 mls @ 250 mls /hr 07/20/19 01:45 07/23/19 01:31 Chloride IV 250 mls/hr Q24H LUANNE Administration Protocol Dextrose 500 mls @ 100 mls /hr 07/20/19 05:32 D5w IV ONCE PRN Adult Acute Hypog lycemia Prot Protocol Insulin Aspart 0 unit 07/20/19 08:00 07/23/19 11:12 Novolog SUBCUT Not Given [facility]EDTIME [facility] Protocol Nystatin 1 applic 07/21/19 18:00 07/23/19 08:08 Nystatin Powder TOPICAL 1 applic BID LUANNE Administration Ondansetron HCl 4 mg 07/20/19 04:59 Zofran PO Q8H PRN NAUSEA Tetracyclines Allergy (Severe, Verified 07/19/19 22:35) ALGY-Anaphylaxis wool Allergy (Intermediate, Verified 07/19/19 22:35) ALGY-Hives adhesive Adverse Reaction (Verified 07/19/19 22:35) Unknown Artificial Sweetners Adverse Reaction (Intermediate, Uncoded 07/20/19 04:24) ADR-Headache Vitals/I&O/Wt Last Vital Signs Temp 98.0 F 07/23/19 11:21 Pulse 110 H 07/23/19 11:21 Resp 18 07/23/19 11:21 BP 140/70 07/23/19 12:21 Pulse Ox 95 07/23/19 11:21 07/22/19 07/23/19 07/23/19 22:59 06:59 14:59 Intake Total 0 / 920 240 / 240 Balance 0 / -880 240 / 240 Weight last 48 hrs Weight 211.329 kg Weight 210.739 kg Physical Exam Const: COMMON NORMALS: no apparent distress and oriented x3 GENERAL APPEARANCE: cooperative and comfortable NUTRITIONAL APPEARANCE: obese morbidly obese (severely) ORIENTATION/CONSCIOUSNESS: Yes awake HENMT: COMMON NORMALS: normocephalic, head/scalp atraumatic, hearing grossly normal bilaterally and moist oral mucous membranes HEAD & SCALP: normocephalic and atraumatic Eye: COMMON NORMALS: PERRL, EOMs intact bilaterally and conjunctivae normal CONJUNCTIVA: Yes conjunctivae normal PUPIL: Yes PERRL Neck/C-Spine: COMMON NORMALS: full ROM GENERAL: Yes normal visual inspection and Yes trachea midline Resp: COMMON NORMALS: normal respiratory effort, no retractions, no use of accessory muscles and clear to auscultation bilaterally EFFORT & INSPECTION: Yes able to speak in complete sentences, Yes symmetric chest movement and No tachypneic AUSCULTATION: clear to auscultation bilaterally OTHER: auscultation significantly limited by body habitus Cardio: COMMON NORMALS: regular rate, regular rhythm, S1 normal heart sound, S2 normal heart sound and no murmurs RATE: regular rate RHYTHM: regular rhythm HEART SOUNDS: S1 normal and S2 normal OTHER: auscultation limited by body habitus GI: COMMON NORMALS: normal to inspection, nondistended, normoactive bowel sounds, soft to palpation and non-tender PALPATION: Yes soft Back/Pelvis: COMMON NORMALS: thoracic and lumbar spine normal to inspection LUMBAR SPINE/LOWER BACK: Yes lumbar spinal tenderness (bilaterally) Lumbar spinal tenderness location: L4 and L5 Extremity: COMMON NORMALS: normal to inspection, full ROM and no clubbing, cyanosis or edema; negative for no pedal edema Neuro: COMMON NORMALS: oriented x3, moves all extremities, no focal motor deficits and no sensory deficits noted Psych: COMMON NORMALS: mental status grossly normal, thought process normal, cooperative, affect normal and speech normal SPEECH: Yes normal speech THOUGHT PROCESS: normal thought process Skin: COMMON NORMALS: no jaundice, no petechiae and no mottling NARRATIVE SKIN EXAM: -Noted well-demarcated erythematous macular rash in area involving pannus and extending into the upper thigh area bilaterally, warm to the touch A&P Assessment and plan (1) Shortness of breath: -likely multifactorial given fluid overload, likely pulmonary HTN, obesity hypoventilation syndrome -not oxygen dependent at baseline; supplemental oxygen as needed -continue monitoring respiratory status -will resume diuresis with continued close monitoring of renal function -Echo done in 03/2019 was technically quite limited, has prior Echo from 2016 showing EF-55% -daily weights, monitor Is & Os, on fluid restriction, 1 L/day Status: Acute Code(s): R06.02 - Shortness of breath (2) Hypertension: -quite hypertensive initially, BP control improved -continue to monitor vital signs -continue oral antihypertensives, hydralazine PRN Status: Acute Qualifiers: Hypertension type: renovascular hypertension Qualified Code(s): I15.0 - Renovascular hypertension Code(s): I10 - Essential (primary) hypertension (3) Chronic kidney disease, stage III (moderate): -has CKD stage 3; baseline Cr appears to be 1.7-2 -avoid nephrotoxins, renally dose meds -continue to monitor renal function, lytes particularly with diuresis -continue to monitor urine output Status: Acute Code(s): N18.3 - Chronic kidney disease, stage 3 (moderate) (4) Atrial fibrillation: -has hx of known atrial fibrillation, with aberrant conduction; seen by cardiology during most recent admission in 06/2019 -on AC with Eliquis -telemetry monitoring -on Coreg, titrate as needed for appropriate rate control -TSH, K wnl -noted troponins, ECGs Status: Acute Qualifiers: Atrial fibrillation type: longstanding persistent Qualified Code(s): I 48.11 - Longstanding persistent atrial fibrillation Code(s): I48.91 - Unspecified atrial fibrillation Additional A&P Information Additional A&P Information: -Severe morbid obesity: BMI > 65 kg/m2 -Acute thrombocytopenia; baseline platelet count wnl -DELMIS; has appropriate BiPAP at home though equipment needs to be cleaned -NIDDM type II; A1c-7.4 (03/2019). Accuchecks, cardiac diabetic diet as tolerated; ISS -Hypothyroidism; TSH wnl, continue Levothyroxine -Multilevel DJD, Chronic back and knee pain; will resume narcotics particularly as pain likely affecting BP -Noted tinea corporis involving lower abdominal and upper thigh area bilaterally; keep areas clean and dry, continue nystatin powder and interdry -DVT ppx not needed as on Eliquis -PT/OT evaluations appreciated -fall precautions -has bariatric recliner -Dispo: home -Code status: FULL code Attestations Medical Necessity Statement*: Patient requires hospitalization for continued diuresis with close monitoring of renal function. Coding Level of Care Code Acute Child Support Investigator for Chg Fwd Exam Problem Focused Diagnoses Shortness of breath R06.02 Hypertension I15.0 Hypertension type: renovascular hypertension Chronic kidney disease, stage III (moderate) N18.3 Atrial fibrillation I48.11 Atrial fibrillation type: longstanding persistent
--- NOTE | 2019-07-23 14:11 | PC.SOCIAL ---
Pg 2 of IMM was explained to and signed by patient, copy was provided, and form placed in chart. She verbalized understanding and had no questions.
[2019-07-23 17:01] LABS: Glucose Point of Care 130 mg/dL (70-110)
[2019-07-23] MEDS: docusate sodium 100 mg Capsule PO (17:21)
--- NOTE | 2019-07-23 19:53 | PC.RESP ---
pt sleeping no respiratory distress noted at this time
[2019-07-23 21:22] LABS: Glucose Point of Care 169 mg/dL (70-110)
[2019-07-23] MEDS: FUROsemide 10 mg/mL SDV 4mL 40 MG IVP (21:40)
[2019-07-24] VITALS (8 sets, daily range): BP systolic 106–152; BP diastolic 64–77; PULSE 78–118; RESP 18–22; TEMP 36.4–37.3; O2SAT 91–100
[2019-07-24] MEDS: azithromycin 500 MG in sodium chloride 0.9% 250 ML 250 MG IV (01:18)
[2019-07-24] MEDS: HYDROcodone-acetaminophen 10-325 mg Tablet 1 TAB PO (06:20)
[2019-07-24 06:21] LABS: Basophils % 0.3 %; Eosinophils # 0.4 10^3/uL (0.0-0.8); Hematocrit 38.2 % (37.0-47.0); Hemoglobin 10.5 g/dL (11.5-15.3); Lymphocytes # 1.2 10^3/uL (0.8-4.8); Lymphocytes % 9.9 %; Mean Corpuscular HGB Conc 27.5 g/dL (30.0-36.0); Mean Corpuscular Volume 87.4 fL (81-99); Monocytes # 0.7 10^3/uL (0.2-0.9); Monocytes % 5.6 %; Neutrophils # 9.7 10^3/uL (1.8-7.7); Neutrophils % 80.8 %; Nucleated Red Blood Cells % 0 %; Platelet Count 313 10^3/cmm (130-400); Red Blood Count 4.37 10^6/uL (4.1-5.3); Red Cell Distribution Width 17.4 % (12.1-15.1)
[2019-07-24 06:33] LABS: Glucose Point of Care 127 mg/dL (70-110)
[2019-07-24 06:36] LABS: Anion Gap 14.9 (5-19); Blood Urea Nitrogen 31 mg/dL (6-20); Calcium 9.3 mg/Dl (8.6-10.0); Carbon Dioxide 31 mmol/L (22-29); Chloride 97 mmol/L (98-107); Glomerular Filtration Rate 31.3 mL/min (90-130); Glucose 132 mg/dL (74-109); Potassium 3.9 mmol/L (3.5-5.1); Sodium 139 mmol/L (136-145)
[2019-07-24] MEDS: docusate sodium 100 mg Capsule PO ×2 (08:32→17:26)
[2019-07-24] MEDS: carvedilol 6.25 mg Tablet PO ×2 (08:32→17:26)
[2019-07-24] MEDS: apixaban 5 mg Tablet PO ×2 (08:32→17:26)
[2019-07-24] MEDS: nystatin powder 15 gm Btl 1 APPLIC TOPICAL ×2 (08:33→17:26)
[2019-07-24] MEDS: FUROsemide 10 mg/mL SDV 4mL 40 MG IVP (10:07)
[2019-07-24 12:32] LABS: Glucose Point of Care 136 mg/dL (70-110)
[2019-07-24 16:27] LABS: Glucose Point of Care 149 mg/dL (70-110)
--- NOTE | 2019-07-24 20:26 | PM.PN ---
Subjective Subjective: Interval history: She is overall doing much better compared to how she was on admission. Still gets short of breath with walking. Needs to take a rest. Previously reports was very short of breath even transferring to her wheelchair. Vitals/I&O/Wt Last Vital Signs Temp 98.7 F 07/24/19 16:00 Pulse 78 07/24/19 19:44 Resp 18 07/24/19 19:44 BP 114/77 07/24/19 16:00 Pulse Ox 94 07/24/19 19:44 07/24/19 07/24/19 07/24/19 06:59 14:59 22:59 Intake Total 250 / 1200 440 / 440 240 / 680 Output Total 2100 / 2700 Balance -1850 / -1500 440 / 440 240 / 680 Weight last 48 hrs Weight 210.013 kg Weight 211.329 kg Physical Exam Const: COMMON NORMALS: no apparent distress and oriented x3 NUTRITIONAL APPEARANCE: obese morbidly obese HENMT: COMMON NORMALS: oropharynx normal Neck/C-Spine: COMMON NORMALS: no JVD Resp: COMMON NORMALS: normal respiratory effort and clear to auscultation bilaterally AUSCULTATION: clear to auscultation bilaterally, diminished lung sounds and other (difficult exam due to body habitus) Cardio: COMMON NORMALS: no JVD, regular rhythm, S1 normal heart sound, S2 normal heart sound and no murmurs RHYTHM: regular rhythm HEART SOUNDS: S1 normal and S2 normal GI: COMMON NORMALS: normal to inspection, nondistended, normoactive bowel sounds, soft to palpation and non-tender PALPATION: Yes soft Extremity: COMMON NORMALS: no joint enlargement and no pedal edema Neuro: COMMON NORMALS: oriented x3 and moves all extremities Skin: COMMON NORMALS: no rashes or lesions noted GENERAL SKIN EXAM: no rashes or lesions noted A&P Assessment and plan (1) Shortness of breath: This is with improvement, however, still gets dyspneic. She appears to have reached euvolemia. We will try to switch her over to oral diuretics. Shortness of breath is likely multifactorial given fluid overload, suspected pulmonary HTN, obesity hypoventilation syndrome She has not been adherent with CPAP at home for sleep apnea. Not oxygen dependent at baseline; supplemental oxygen as needed EF in September 2018. Likely HFpEF. Status: Acute Code(s): R06.02 - Shortness of breath (2) Hypertension: Improved Status: Acute Qualifiers: Hypertension type: renovascular hypertension Qualified Code(s): I15.0 - Renovascular hypertension Code(s): I10 - Essential (primary) hypertension (3) Chronic kidney disease, stage III (moderate): CKD stage 3; baseline Cr appears to be 1.7-2 Status: Acute Code(s): N18.3 - Chronic kidney disease, stage 3 (moderate) (4) Atrial fibrillation: Hx of known atrial fibrillation, with aberrant conduction; seen by cardiology during most recent admission in 06/2019 [place] Status: Acute Qualifiers: Atrial fibrillation type: longstanding persistent Qualified Code(s): I48.11 - Longstanding persistent atrial fibrillation Code(s): I48.91 - Unspecified atrial fibrillation Additional A&P Information Severe morbid obesity: BMI > 65 kg/m2 Acute thrombocytopenia; baseline platelet count wnl DELMIS; has appropriate BiPAP at home though equipment needs to be cleaned NIDDM type II; A1c-7.4 (03/2019). Accuchecks, cardiac diabetic diet as tolerated; ISS Hypothyroidism; TSH wnl, continue Levothyroxine Multilevel DJD, Chronic back and knee pain; will resume narcotics particularly as pain likely affecting BP Noted tinea corporis involving lower abdominal and upper thigh area bilaterally; keep areas clean and dry, continue nystatin powder and interdry Attestations Medical Necessity Statement*: Continue admission for this man of dyspnea, CHF exacerbation with other associated comorbidities. Coding Level of Care Code Acute Trial Justice for [facility] Fwd Diagnoses Shortness of breath R06.02 Hypertension I15.0 Hypertension type: renovascular hypertension Chronic kidney disease, stage III (moderate) N18.3 Atrial fibrillation I48.11 Atrial fibrillation type: longstanding persistent
[2019-07-24 21:26] LABS: Glucose Point of Care 130 mg/dL (70-110)
[2019-07-24] MEDS: FUROsemide 40 mg Tablet PO (21:26)
[2019-07-25] VITALS (8 sets, daily range): BP systolic 130–148; BP diastolic 75–87; PULSE 87–103; RESP 16–20; TEMP 36.1–37.4; O2SAT 85–100
[2019-07-25] MEDS: azithromycin 250 mg Tablet 500 MG PO (01:15)
[2019-07-25 04:00] LABS: Basophils % 0.2 %; Eosinophils # 0.3 10^3/uL (0.0-0.8); Eosinophils % 3.1 %; Hematocrit 38.9 % (37.0-47.0); Hemoglobin 11.1 g/dL (11.5-15.3); Lymphocytes # 1.4 10^3/uL (0.8-4.8); Lymphocytes % 12.9 %; Mean Corpuscular HGB Conc 28.5 g/dL (30.0-36.0); Mean Corpuscular Hemoglobin 25.4 pg (28.0-34.0); Mean Platelet Volume 11.1 fL (7.4-10.4); Monocytes # 0.5 10^3/uL (0.2-0.9); Monocytes % 4.6 %; Neutrophils # 8.4 10^3/uL (1.8-7.7); Neutrophils % 78.5 %; Nucleated Red Blood Cells % 0 %; Platelet Count 325 10^3/cmm (130-400); Red Blood Count 4.37 10^6/uL (4.1-5.3); Red Cell Distribution Width 17.5 % (12.1-15.1); White Blood Count 10.7 10^3/uL (4.0-10.0)
[2019-07-25 04:12] LABS: Anion Gap 17.9 (5-19); Blood Urea Nitrogen 32 mg/dL (6-20); Calcium 9.6 mg/Dl (8.6-10.0); Carbon Dioxide 30 mmol/L (22-29); Chloride 96 mmol/L (98-107); Glomerular Filtration Rate 29.3 mL/min (90-130); Glucose 155 mg/dL (74-109); Potassium 3.9 mmol/L (3.5-5.1); Sodium 140 mmol/L (136-145)
[2019-07-25] MEDS: acetaminophen 325 mg Tablet 650 MG PO (04:47)
[2019-07-25 05:47] LABS: Glucose Point of Care 111 mg/dL (70-110)
[2019-07-25] MEDS: apixaban 5 mg Tablet PO (08:18)
[2019-07-25] MEDS: carvedilol 6.25 mg Tablet PO (08:18)
[2019-07-25] MEDS: FUROsemide 40 mg Tablet PO (08:18)
[2019-07-25] MEDS: docusate sodium 100 mg Capsule PO (08:18)
[2019-07-25] MEDS: nystatin powder 15 gm Btl 1 APPLIC TOPICAL (08:19)
--- NOTE | 2019-07-25 10:55 | PC.SOCIAL ---
IMM Update Pg 2 of IMM given and explained to patient. Voiced understanding. Copy provided to patient and chart updated.
--- NOTE | 2019-07-25 13:05 | PM.DCS ---
Discharge Providers Date of Admission: 07/20/19 08:05 Date of Discharge: 07/25/19 Attending Provider at Admission: Diane Marie MD Attending Provider at Discharge: Curtis Echols Primary Care Provider: Mervat Nguyen Diagnoses at Discharge Discharge Diagnosis (1) Shortness of breath: Status: Acute (2) Hypertension: Status: Acute Qualifiers: Hypertension type: renovascular hypertension Qualified Code(s): I15.0 - Renovascular hypertension (3) Chronic kidney disease, stage III (moderate): Status: Acute Problem details: Cr has ranged 1.6-2.1 since 11/27 (4) Atrial fibrillation: Status: Acute Qualifiers: Atrial fibrillation type: longstanding persistent Qualified Code(s): I48.11 - Longstanding persistent atrial fibrillation Reason for Visit Reason for Visit: Reason For Visit: SOB Hospital Course Hospital Course: 54-year-old lady with history of A. fib, chronic kidney disease stage III, DM 2, HTN, morbid obesity, obstructive sleep apnea, not adherent with CPAP was admitted after presenting with significant shortness of breath, dyspnea on exertion even with short distance, probably needing oxygen, but does not have any at home, on presentation found to be in volume overload, with suspected diastolic congestive heart failure exacerbation, with suspected pulmonary hypertension from untreated DELMIS, suspected obesity hypoventilation syndrome. On presentation in A. fib with intermittent RVR. Creatinine appears to be close to baseline. She was started on IV diuretics. Was continued on beta-whitley, anticoagulation for atrial fibrillation. With noted hypertensive episodes in the hospital, with hydralazine as needed, with improvement in blood pressures with low-sodium diet, Lasix, carvedilol. She was diuresing well, although transiently diuretics were held due to worsening renal function. Her creatinine improved down to 1.8. She has been in negative balance. Transition to oral diuretics still with good urine output. She is feeling stronger. She is still requiring oxygen, and will need after discharge. Home was contacted, and she was informed about cleaning service for her CPAP which she is worried may be contaminated with black mold. On home oxygen evaluation she qualified for 3 L by nasal cannula. Please continue to encourage adherence with CPAP therapy. Please reassess volume status, adjust diuretics as appropriate. Physical Exam Const: COMMON NORMALS: no apparent distress and oriented x3 NUTRITIONAL APPEARANCE: obese morbidly obese HENMT: COMMON NORMALS: oropharynx normal Neck/C-Spine: COMMON NORMALS: no JVD Resp: COMMON NORMALS: normal respiratory effort and clear to auscultation bilaterally AUSCULTATION: clear to auscultation bilaterally, diminished lung sounds and other (difficult exam due to body habitus) Cardio: COMMON NORMALS: no JVD, regular rhythm, S1 normal heart sound, S2 normal heart sound and no murmurs RHYTHM: regular rhythm HEART SOUNDS: S1 normal and S2 normal GI: COMMON NORMALS: normal to inspection, nondistended, normoactive bowel sounds, soft to palpation and non-tender PALPATION: Yes soft Extremity: COMMON NORMALS: no joint enlargement GENERAL: Yes edema (Trace edema bilaterally) Neuro: COMMON NORMALS: oriented x3 and moves all extremities Skin: COMMON NORMALS: no rashes or lesions noted GENERAL SKIN EXAM: no rashes or lesions noted Discharge Data Data Completed and Pending: Completed Studies During Hospitalization Category Date Time Status XR chest 1V shania ble [id number] Urgent Exams 07/19/19 22:25 Completed Labs from last 24 hours 07/25/19 07/25/19 07/25/19 05:44 03:20 03:20 WBC 10.7 H RBC 4.37 Hgb 11.1 L Hct 38.9 MCV 89.0 MCH 25.4 L MCHC 28.5 L RDW 17.5 H Plt Count 325 MPV 11.1 H Neut % (Auto) 78.5 Lymph % (Auto) 12.9 Carter % (Auto) 4.6 Eos % (Auto) 3.1 Baso % (Auto) 0.2 Neut # (Auto) 8.4 H Lymph # (Auto) 1.4 Carter # (Auto) 0.5 Eos # (Auto) 0.3 Baso # (Auto) 0.0 Nucleated RBC % (a uto) 0 Nucleated RBCs # 0.0 Sodium 140 Potassium 3.9 Chloride 96 L Carbon Dioxide 30 H Anion Gap 17.9 BUN 32 H Creatinine 1.8 H GFR Calculation 29.3 L Glucose 155 H POC Glucose 111 Calcium 9.6 07/24/19 07/24/19 21:17 16:23 WBC RBC Hgb Hct MCV MCH MCHC RDW Plt Count MPV Neut % (Auto) Lymph % (Auto) Carter % (Auto) Eos % (Auto) Baso % (Auto) Neut # (Auto) Lymph # (Auto) Carter # (Auto) Eos # (Auto) Baso # (Auto) Nucleated RBC % (a uto) Nucleated RBCs # Sodium Potassium Chloride Carbon Dioxide Anion Gap BUN Creatinine GFR Calculation Glucose POC Glucose 130 149 Calcium Vitals: Last Vital Signs Temp 96.9 F L 07/25/19 12:00 Pulse 87 07/25/19 12:00 Resp 16 07/25/19 12:00 BP 148/87 07/25/19 12:00 Pulse Ox 97 07/25/19 12:00 Discharge Plan Discharge Patient Disposition: Home, Self-Care Condition: Stable Prescriptions: New furosemide 40 mg Tablet 40 mg PO DAILY Qty: 15 RF: 1 nystatin-triamcinolone 100,000-0.1 unit/g-% cream 1 applic TOPICAL BID Qty: 30 RF: 0 Continued hydrocodone-acetaminophen 10-325 mg Tablet 1 tab PO Q4H PRN (Reason: Pain, Mild) RF: 0 glipizide 2.5 mg Tablet Extended Release 24hr 2.5 mg PO DAILY RF: 0 Imitrex 25 mg Tablet 25 mg PO Q2H PRN (Reason: Migraine Headache) RF: 0 amlodipine 10 mg Tablet 10 mg PO DAILY RF: 0 Eliquis 5 mg Tablet 5 mg PO BID RF: 0 Discontinued Voltaren 1 % Gel 4 g TOPICAL QID RF: 0 Discharge Orders: Discharge Order (Routine); Ordered 07/25/19 Ordered By: Curtis Echols Other Ambulatory Orders: Basic Metabolic Panel (Routine) Timeframe: 4 Days Facility: [facility] - Location: Lab - Main Lab Ordered By: Curtis Echols DME: [employer] (Order) Location: None Selected Ordered By: Curtis Echols DME: Oxygen (Order) Location: None Selected Ordered By: Curtis Echols Referrals: [facility] [Outside] Mervat Nguyen [Primary Care Provider] - 4-7 days Discharge Diet: Cardiac Discharge Activity: Increase activity as tolerated Activity Restrictions/Additional Instructions: Continue oxygen at home by nasal cannula, 3 L. Continue diuretic. Double Lasix dose to 40 mg twice daily in case of increasing swelling, or weight gain more than 4 pounds in 2 days, or increasing shortness of breath with laying flat. Please continue to use your CPAP as possible as this will help reduce symptoms associated with sleep apnea, potential worsening of oxygenation. Have a CPAP serviced as needed by [employer] company. Discussed with your primary care provider about options of sleep apnea treatment and weight loss. Discharge Attestations Time Spent in Discharge Care*: greater than 30 min Quality Metrics Clinical Quality Measures During this hospital stay, did patient experience: None Coding Level of Care Code Acute Fishing Accessories Maker for Tanner Fwd Exam Problem Focused Diagnoses Shortness of breath R06.02 Hypertension I15.0 Hypertension type: renovascular hypertension Chronic kidney disease, stage III (moderate) N18.3 Atrial fibrillation I48.11 Atrial fibrillation type: longstanding persistent
[2019-07-25 13:31] LABS: Glucose Point of Care 194 mg/dL (70-110)
--- NOTE | 2019-07-25 16:02 | PC.OT ---
OT tx attempted. Pt reports she is going home and has no further needs at this time.
[2019-07-25 17:39] LABS: Glucose Point of Care 149 mg/dL (70-110)
== END 2019-07-25 17:43 | disposition home or self-care (01) | DRG 309 ==
LOC: ER 07-20 01:45 → MEDSURG 07-20 02:35
PROVIDERS: Family Medicine; Admitting Provider Hospitalist; Emergency Provider Emergency Medicine; Family Provider Internal Medicine; PCP Internal Medicine; Visit Provider Internal Medicine
DX: I48.19 Other persistent atrial fibrillation (principal); Z68.44 Body mass index [BMI] 60.0-69.9, adult; E66.2 Morbid (severe) obesity with alveolar hypoventilation; E11.22 Type 2 diabetes mellitus with diabetic chronic kidney disease; I12.9 Hypertensive chronic kidney disease with stage 1 through stage 4 chronic kidney disease, or unspecified chronic kidney disease; N18.3 Chronic kidney disease, stage 3 (moderate); Z91.19 Patient's noncompliance with other medical treatment and regimen; D47.3 Essential (hemorrhagic) thrombocythemia; E03.9 Hypothyroidism, unspecified; G47.33 Obstructive sleep apnea (adult) (pediatric); M15.9 Polyosteoarthritis, unspecified; B35.4 Tinea corporis; Z87.891 Personal history of nicotine dependence; L30.4 Erythema intertrigo; I27.20 Pulmonary hypertension, unspecified; Z79.01 Long term (current) use of anticoagulants
CPT/HCPCS: 12345; 36415; 36416; 71045; 80048; 80053; 82962; 83735; 83880; 84443; 84484; 85025; 93005; 94640; 94664; 96365; 96372; 96374; 96375; 97110; 97116; 97161; 97166; 97530; 97535; 99283; G0378; J0360; J0456; J0696; J1815; J1940; J2270; J3490; J7050; J7611; Q0144

== ENCOUNTER 2019-08-06 18:23 | Inpatient (IN) | payer MEDICARE, MEDICAID, SELFPAY ==
[2019-08-06] VITALS (47 sets, daily range): BP systolic 105–174; BP diastolic 68–127; PULSE 83–147; RESP 15–34; TEMP 36.9; O2SAT 90–98; BMI 59.1
--- NOTE | 2019-08-06 18:30 | ED_ITS ---
Entered by Sung Cantu, acting as scribe for Bruno Henson DO HPI - SOB/Dyspnea General: Chief Complaint: Shortness of Breath/Dyspnea Stated Complaint: DIFFICULTY BREATHING Time Seen by Provider: 08/06/19 18:39 History of Present Illness: HPI Narrative: 54 yo female presents with shortness of breath. Pt was recently released from the hospital on wednesday, was discharged with o2. Pt states that she started walking to the restroom, became short of breath and couldn't regain her breath back. Pt states that she thinks there is something wrong with her o2 machine. Pt states that she hasn't been using her cpap because it has black mold in it. Pt states that she has been retaining fluid again. MD elicited complaint: shortness of breath Associated symptoms: Reports orthopnea and palpitations; Deny abdominal pain, chest pain, dizziness, fever(s), nausea or vomiting Review of Systems Const: Denies: fever or chills Eyes: Denies: change in vision or blurry vision ENMT: Denies: painful swallowing, swelling of lips/tongue, bleeding gums, dental pain, Change in hearing, nose bleeds, post nasal drip or facial/sinus pain Card: Reports: palpitations, irregular heart rhythm, edema, swelling of feet/ankles and shortness of breath when lying down; Denies: chest pain or shortness of breath on exertion Resp: Reports: shortness of breath and non-productive cough; Denies: productive cough or wheezing GI: Denies: abdominal pain, nausea, vomiting, rectal pain, blood in stool or black tarry stool : Denies: painful urination, urinary frequency, urinary urgency or blood in urine Musc: Denies: neck pain, back pain, redness or joint warmth Skin/Breast: Denies: rash, itching or redness Neuro: Denies: headache, dizziness, vertigo, confusion or seizure-like activity Psych: Denies: anxiety, visual hallucinations or auditory hallucinations PFSH ED PFSH: Statuses (acute, chronic, etc) shown below reflect problem list status as previously entered and may not be historically accurate Medical History Atrial fibrillation (Acute) Chronic kidney disease, stage III (moderate) (Acute) Cr has ranged 1.6-2.1 since 11/27 Diabetes mellitus type 2, noninsulin dependent (Acute) last A1c in 03/30 was 7.4 Hypertension (Acute) Hypothyroidism (Resolved) last TSH in 03/30 was 6.18 Morbid obesity with BMI of 60.0-69.9, adult (Acute) DELMIS (obstructive sleep apnea) (Acute) Reports not currently compliant with therapy due to contaminated machine Surgical History History of dental surgery (Acute) Status post biopsy of skin (Acute) Social History Smoking and tobacco status: former smoker Alcohol intake: never Physical Exam Const: COMMON NORMALS: negative for average body habitus GENERAL APPEARANCE: well developed NUTRITIONAL APPEARANCE: obese morbidly obese ORIENTATION/CONSCIOUSNESS: Yes oriented to person, Yes oriented to place and Yes oriented to time HENMT: COMMON NORMALS: normocephalic, external ears normal and external nose normal HEAD & SCALP: normocephalic FACE & SINUS: normal facial exam NOSE: external nose normal and no nasal discharge EXTERNAL EAR: Yes external ears normal TEETH & GINGIVA: Yes other (Mild thrush) THROAT: posterior oropharynx normal; no peritonsillar mass Eye: COMMON NORMALS: PERRL, EOMs intact bilaterally and conjunctivae normal EYELID: eyelids normal CONJUNCTIVA: Yes conjunctivae normal PUPIL: Yes PERRL Neck/C-Spine: COMMON NORMALS: full ROM GENERAL: No tracheal deviation Chest: COMMONS NORMALS: inspection of chest normal CHEST: No tenderness Resp: COMMON NORMALS: clear to auscultation bilaterally EFFORT & INSPECTION: Yes tachypneic, Yes respiratory distress, No retractions, No uses accessory muscles and No tracheal deviation AUSCULTATION: clear to auscultation bilaterally, no rhonchi, no wheezes and diminished lung sounds Cardio: COMMON NORMALS: negative for regular rate and negative for regular rhythm RATE: abnormal rate RHYTHM: abnormal rhythm HEART SOUNDS: no murmurs PERIPHERAL PULSES: radial pulses present GI: INSPECTION: No abdominal distension AUSCULTATION: No hyperactive bowel sounds and No hypoactive bowel sounds PALPATION: No guarding and No rigid PERCUSSION: no dullness to percussion and no tympanic to percussion : COMMON NORMALS: Yes no CVA tenderness BLADDER/KIDNEY EXAM: Yes no CVA tenderness Back/Pelvis: COMMON NORMALS: no CVA tenderness Neuro: SENSORIUM/ORIENTATION: Yes oriented to person, Yes oriented to place and Yes oriented to time Psych: COMMON NORMALS: mental status grossly normal Skin: COMMON NORMALS: no rashes or lesions noted GENERAL SKIN EXAM: no rashes or lesions noted Course ED course: 54-year-old female recently hospitalized presents with respiratory distress with tachypnea in the mid 30s on arrival. She is also in atrial fibrillation with a rapid rate. Currently rate down to 100. Blood pressure improved. She has had Nitropaste, Lasix, and oxygen. She is significantly hypoxic. She will require some more diuresis. Her BNP is significantly elevated. I am sure there is some degree of obesity hypoventilation. Vital Signs: Vital signs: Vital Signs Temperature 98.4 F 08/06/19 18:25 Pulse Rate 116 H 08/06/19 20:30 Respiratory Rate 19 H 08/06/19 20:30 Blood Pressure 171/96 08/06/19 20:30 Pulse Oximetry 96 08/06/19 20:30 MDM - SOB/Dyspnea Lab Data: Labs: Lab Results 08/06/19 08/06/19 08/06/19 Range/Units 19:05 19:13 19:13 WBC 9.4 (4.0-10.0) 10^3/ uL RBC 4.17 (4.1-5.3) 10^6/u L Hgb 10.3 L (11.5-15.3) g/dL Hct 35.2 L (37.0-47.0) % MCV 84.4 (81-99) fL MCH 24.7 L (28.0-34.0) pg MCHC 29.3 L (30.0-36.0) g/dL RDW 17.5 H (12.1-15.1) % Plt Count 223 (130-400) 10^3/c mm MPV 11.7 H (7.4-10.4) fL Neut % (Auto) 82.2 % Lymph % (Auto) 9.4 % [place] % (Auto) 4.8 % Eos % (Auto) 2.8 % Baso % (Auto) 0.3 % Neut # (Auto) 7.7 (1.8-7.7) 10^3/u L Lymph # (Auto) 0.9 (0.8-4.8) 10^3/u L [place] # (Auto) 0.5 (0.2-0.9) 10^3/u L Eos # (Auto) 0.3 (0.0-0.8) 10^3/u L Baso # (Auto) 0.0 (0.0-0.1) 10^3/u L Nucleated RBC % (a uto) 0 % Nucleated RBCs # 0.0 /100WBC Specimen Type Arterial Sample Site Radial, right ABG pH 7.42 (7.35-7.45) ABG pCO2 43.0 (35-45) mmHg ABG pO2 94.2 (80.0-100.0) mmH g ABG HCO3 27.9 H (22-26) mmol/L ABG Base Excess 3.1 H (-2.0-2.0) mmol/ L Elian Test Pos Hematocrit 31.4 L (37-47) % Hgb O2 Saturation 96.5 (95-100) % Carboxyhemoglobin 1.3 (0.4-20.1) %THgb Methemoglobin 0.4 (0.4-1.5) % Total Hemoglobin 10.2 L (12-16) g/dL O2 Delivery Device Nc O2 Liters/Min 4.0 % Health And Safety Tech ID ellpe Sodium 140 (136-145) mmol/L Potassium 4.4 (3.5-5.1) mmol/L Chloride 102 (98-107) mmol/L Carbon Dioxide 25 (22-29) mmol/L Anion Gap 17.4 (5-19) BUN 15 (6-20) mg/dL Creatinine 1.7 H (0.5-0.9) mg/dL GFR Calculation 31.3 L (90-130) mL/min Glucose 137 H (74-109) mg/dL Calcium 9.3 (8.5-10.5) mg/dL Magnesium 2.2 (1.7-2.3) mg/dL Total Bilirubin 1.2 (0.15-1.2) mg/dL AST 16 (0-32) U/L ALT 26 (0-33) U/L Alkaline Phosphata se 91 (35-105) IU/L Troponin T Baselin e (0-10) ng/mL NT-Pro-B Natriuret Pep 1817 H (0-125) pg/mL Total Protein 6.5 L (6.6-8.7) g/dL Albumin 3.9 (3.5-5.2) g/dL Globulin 2.6 (1.3-4.6) g/dL 08/06/19 Range/Units 19:13 WBC (4.0-10.0) 10^3/ uL RBC (4.1-5.3) 10^6/u L Hgb (11.5-15.3) g/dL Hct (37.0-47.0) % MCV (81-99) fL MCH (28.0-34.0) pg MCHC (30.0-36.0) g/dL RDW (12.1-15.1) % Plt Count (130-400) 10^3/c mm MPV (7.4-10.4) fL Neut % (Auto) % Lymph % (Auto) % [place] % (Auto) % Eos % (Auto) % Baso % (Auto) % Neut # (Auto) (1.8-7.7) 10^3/u L Lymph # (Auto) (0.8-4.8) 10^3/u L [place] # (Auto) (0.2-0.9) 10^3/u L Eos # (Auto) (0.0-0.8) 10^3/u L Baso # (Auto) (0.0-0.1) 10^3/u L Nucleated RBC % (a uto) % Nucleated RBCs # /100WBC Specimen Type Sample Site ABG pH (7.35-7.45) ABG pCO2 (35-45) mmHg ABG pO2 (80.0-100.0) mmH g ABG HCO3 (22-26) mmol/L ABG Base Excess (-2.0-2.0) mmol/ L Elian Test Hematocrit (37-47) % Hgb O2 Saturation (95-100) % Carboxyhemoglobin (0.4-20.1) %THgb Methemoglobin (0.4-1.5) % Total Hemoglobin (12-16) g/dL O2 Delivery Device O2 Liters/Min % Health And Safety Tech ID Sodium (136-145) mmol/L Potassium (3.5-5.1) mmol/L Chloride (98-107) mmol/L Carbon Dioxide (22-29) mmol/L Anion Gap (5-19) BUN (6-20) mg/dL Creatinine (0.5-0.9) mg/dL GFR Calculation (90-130) mL/min Glucose (74-109) mg/dL Calcium (8.5-10.5) mg/dL Magnesium (1.7-2.3) mg/dL Total Bilirubin (0.15-1.2) mg/dL AST (0-32) U/L ALT (0-33) U/L Alkaline Phosphata se (35-105) IU/L Troponin T Baselin e 27 H (0-10) ng/mL NT-Pro-B Natriuret Pep (0-125) pg/mL Total Protein (6.6-8.7) g/dL Albumin (3.5-5.2) g/dL Globulin (1.3-4.6) g/dL Discharge Plan Discharge Admit Provider: Joaquín Chang Coding Level of Care Code ED Air Moving Technician for g Fwd The documentation recorded by the Pepe geller Kialy, accurately reflects the service I personally performed and the decisions made by Sixto reed Jeremy John, DO Aug 06, 2019 18:23
--- NOTE | 2019-08-06 18:42 | XRR_ITS ---
PROCEDURE INFORMATION: Exam: XR Chest, 1 View Exam date and time: 08/06/2019 7:29 PM Age: 54 years old Clinical indication: Shortness of breath; Additional info: SOB TECHNIQUE: Imaging protocol: XR of the chest Views: 1 view. COMPARISON: CR XR chest 1V portable [id number] 07/19/2019 10:35 PM FINDINGS: Lungs: Mild prominence and indistinctness of the pulmonary vasculature centrally. Pleural space: Unremarkable. No pleural effusion. No pneumothorax. Heart/Mediastinum: Cardiomegaly. Bones/joints: Unremarkable. Soft tissues: Mild prominence of the interstitium diffusely suggest mild edema. XR/XR chest 1V portable [id number] IMPRESSION: Mild edema reflected predominantly as interstitial prominence as described above
--- NOTE | 2019-08-06 18:45 | ECG_ITS ---
Measurements Intervals [place] Rate: 98 P: [place]: 0 QRS: 70 QRSD: 81 T: 42 QT: 344 QTc: 441 ATRIAL FIBRILLATION ABNORMAL RHYTHM ECG Compared to ECG 07/20/2019 04:45:06 Right-axis deviation no longer present Myocardial infarct finding no longer present Electronically Signed On 08-07-2019 17:51:29 NURSING CARE PARTNER by Joaquín Adames M.D. [email or web address]
[2019-08-06 19:13] LABS: ABG PH Result 7.42 (7.35-7.45); Arterial Blood Gas Hematocrit 31.4 % (37-47); Base Excess ABG 3.1 mmol/L (-2.0-2.0); Blood Gas Allen Test Pos; Blood Gas Sample Site Radial, right; Blood Gas Sample Type Arterial; Carboxyhemoglobin 1.3 %THgb (0.4-20.1); HCO3 ABG 27.9 mmol/L (22-26); HGB O2 Sat 96.5 % (95-100); Methemoglobin 0.4 % (0.4-1.5); Oxygen Device NC; PO2 ABG 94.2 mmHg (80.0-100.0); Total Hemoglobin 10.2 g/dL (12-16)
[2019-08-06] MEDS: FUROsemide 10 mg/mL SDV 10mL 80 MG IVP (19:14)
[2019-08-06] MEDS: nitroglycerin 1 gm/inch oint Pkt 1.5 INCH TOPICAL ×2 (19:15→21:08)
--- NOTE | 2019-08-06 19:25 | PC.NURSE ---
Assumed care. Medications as ordered. BSC to room per patient request
[2019-08-06 19:28] LABS: Basophils % 0.3 %; Eosinophils # 0.3 10^3/uL (0.0-0.8); Eosinophils % 2.8 %; Hematocrit 35.2 % (37.0-47.0); Hemoglobin 10.3 g/dL (11.5-15.3); Lymphocytes # 0.9 10^3/uL (0.8-4.8); Lymphocytes % 9.4 %; Mean Corpuscular HGB Conc 29.3 g/dL (30.0-36.0); Mean Corpuscular Hemoglobin 24.7 pg (28.0-34.0); Mean Corpuscular Volume 84.4 fL (81-99); Mean Platelet Volume 11.7 fL (7.4-10.4); Monocytes # 0.5 10^3/uL (0.2-0.9); Monocytes % 4.8 %; Neutrophils # 7.7 10^3/uL (1.8-7.7); Neutrophils % 82.2 %; Nucleated Red Blood Cells % 0 %; Platelet Count 223 10^3/cmm (130-400); Red Blood Count 4.17 10^6/uL (4.1-5.3); Red Cell Distribution Width 17.5 % (12.1-15.1); White Blood Count 9.4 10^3/uL (4.0-10.0)
[2019-08-06 19:47] LABS: Alanine Aminotransferase 26 U/L (0-33); Albumin Level 3.9 g/dL (3.5-5.2); Alkaline Phosphatase 91 IU/L (35-105); Anion Gap 17.4 (5-19); Aspartate Amino Transferase 16 U/L (0-32); Blood Urea Nitrogen 15 mg/dL (6-20); Calcium 9.3 mg/dL (8.5-10.5); Carbon Dioxide 25 mmol/L (22-29); Chloride 102 mmol/L (98-107); Globulin 2.6 g/dL (1.3-4.6); Glomerular Filtration Rate 31.3 mL/min (90-130); Glucose 137 mg/dL (74-109); Magnesium 2.2 mg/dL (1.7-2.3); NT Pro B Type Natriuretic Pept 1817 pg/mL (0-125); Potassium 4.4 mmol/L (3.5-5.1); Sodium 140 mmol/L (136-145); Total Bilirubin 1.2 mg/dL (0.15-1.2); Total Protein 6.5 g/dL (6.6-8.7)
[2019-08-06 20:10] LABS: Troponin(5th) Baseline 27 ng/mL (0-10)
[2019-08-06] MEDS: metoprolol tartrate 1 mg/1 mL SDV 5 mL 5 MG IV (21:07)
--- NOTE | 2019-08-06 21:33 | P.HP_ITS ---
Providers/Chief Complaint Primary Care Provider: Mervat Nguyen Chief Complaint: CHF EXACERBATION (DIASTOLIC), HYPOXIC RESP FAILURE History of Present Illness Ana Lilia Miller is a 54 year old female who carries diagnoses of morbid obesi ty, oxygen dependent 3 L, sleep apnea, atrial fibrillation, chronic anticoagulation, chronic kidney stage III, hypertension, was recently discharged from the hospital for management of A. sukumar RVR came in with chief complaint of palpitations and shortness of breath. Patient is stating that she was d ischarged on 3 L of oxygen at home, she has not been able to use her BiPAP at home, she has been compliant with her medications but today she started having palpitations and some chest discomfort and decided to come to ED for evaluation. In ED diagnostics showed A. sukumar RVR heart rate in 150s, she was given metoprolol IV x2 along Nitropaste for her hypertension, 80 mg of Lasix. Her blood gas showed normal pH, she has been compliant with Eliquis. She is wheelchair-bound and not able to ambulate much. She lives with her who is also wheelchair-bound. When I examined the patient her blood pressure was 130/70, A. fib RVR heart rate 130s, she was laying in left lateral position with 3 L nasal cannula saturating well, no active respiratory distress, Review of Systems Const: Reports: body aches, fatigue and malaise; Denies: fever or chills Eyes: Denies: change in vision ENMT: Denies: throat pain Card: Reports: palpitations, irregular heart rhythm and swelling of feet/ankles; Denies: chest pain or syncope Resp: Denies: shortness of breath GI: Denies: abdominal pain or nausea : Denies: flank pain Musc: Denies: neck pain Neuro: Denies: headache Psych: Reports: anxiety Endo: Denies: excessive urination Leonid/Lymph: Denies: easy bruising All/Imm: Denies: hives Medications/Allergies Allergies Allergy/AdvReac Type Severity Reaction Status Date / Time Tetracyclines Allergy Severe ALGY-Anaphy Verified 07/19/19 22:35 laxis wool Allergy Intermediate ALGY-Hives Verified 07/19/19 22:35 adhesive AdvReac Unknown Verified 07/19/19 22:35 Artificial Sweetners AdvReac Intermediate ADR-Headach Uncoded 07/20/19 04:24 e PFSH Acute PFSH: Statuses (acute, chronic, etc) shown below reflect problem list status a s previously entered and may not be historically accurate Medical History Atrial fibrillation (Acute) Chronic kidney disease, stage III (moderate) (Acute) Cr has ranged 1.6-2.1 since 11/27 Diabetes mellitus type 2, noninsulin dependent (Acute) last A1c in 03/30 was 7.4 Hypertension (Acute) Hypothyroidism (Resolved) last TSH in 03/30 was 6.18 Morbid obesity with BMI of 60.0-69.9, adult (Acute) DELMIS (obstructive sleep apnea) (Acute) Reports not currently compliant with therapy due to contaminated machine Surgical History History of dental surgery (Acute) Status post biopsy of skin (Acute) Social History Smoking and tobacco status: former smoker Alcohol intake: never Vitals/I&O/Wt Last Vital Signs Temp 98.4 F 08/06/19 18:25 Pulse 116 H 08/06/19 20:30 Resp 19 H 08/06/19 20:30 BP 171/96 08/06/19 20:30 Pulse Ox 96 08/06/19 20:30 Weight last 48 hrs Weight 181.437 kg Physical Exam Narrative: EXAM NARRATIVE: Morbid obese female lying in left lateral position with 2 L nasal cannula, saturating well, currently A. fib RVR Variable S1-S2, hard to assess for JVD, bilateral lower extremity has nonpitting edema Bilateral decreased airflow but without any wheezing, Morbid obesity with obesity, bowel sounds very hard to assess but abdomen is nontender and soft Nonfocal neurological exam Patient is wheelchair-bound not able to exacerbate No gross abnormalities Skin shows no active signs of ischemia gangrene ulcer She has hyperemic fungal irritation in abdominal folds Depressed mood with depression with flat affect No acute respiratory distress Data : 08/06/19 19:13 08/06/19 19:13 A&P Assessment and plan (1) Atrial fibrillation with RVR: Status: Acute Code(s): I48.91 - Unspecified atrial fibrillation Additional A&P Information Paroxysmal atrial fibrillation with RVR Currently responding well to IV metoprolol, would use Cardizem drip if she experiences RVR above 110 Her shortness of breath has improved She is not in any active distress She is anticoagulated with Eliquis I believe her symptoms are secondary to severe obstructive sleep apnea and possible pulmonary hypertension causing recurrent episodes of RVR Severe obstructive sleep apnea: Patient does not use BiPAP at home for now, will use BiPAP at the hospital She is stating that her BiPAP needs to be cleaned and it cost $60 which she does not have She is also using opioids which might exacerbate her symptoms Type 2 diabetes: Sliding scale moderate dose Chronic kidney disease: Creatinine at baseline No active exacerbation Diastolic congestive heart failure Active exacerbation with high BNP, will use Bumex 1 mg every day DVT prophylaxis not needed she is on Eliquis Full code GI prophylaxis: Not needed Attestations Medical Necessity Statement*: Anticipating her stay to cross more than 2 midnights because of recurrent A. fib RVR episodes Time Spent in Patient Care: 50 Coding Level of Care Code Acute Heavy Equipment Engine Mechanic for Tanner Chavez Diagnoses Atrial fibrillation with RVR I48.91
[2019-08-06 22:18] LABS: Troponin 5 2HR 30.86 ng/mL (0-10); Troponin 5 2HR Delta 3.86 ABS# (0-10)
[2019-08-07] VITALS (13 sets, daily range): BP systolic 110–171; BP diastolic 69–107; PULSE 77–118; RESP 16–26; TEMP 36.6–37.6; O2SAT 92–97
--- NOTE | 2019-08-07 00:45 | ECG_ITS ---
Measurements Intervals [place] Rate: 105 P: [place]: 0 QRS: 118 QRSD: 71 T: 74 QT: 340 QTc: 450 ATRIAL FIBRILLATION WITH RAPID VENTRICULAR RESPONSE POSSIBLE RIGHT VENTRICULAR HYPERTROPHY [SOME/ALL OF: PROMINENT R IN V1, LATE TRANSITION, RAD, [place], SSS] MINIMAL ST DEPRESSION [0.025+ mV ST DEPRESSION] Compared to ECG 07/20/2019 04:45:06 ST (T wave) deviation now present Right-axis deviation no longer present Myocardial infarct finding no longer present Electronically Signed On 08-07-2019 17:52:34 CARE MANAGER by Joaquín Adames M.D. [email or web address]
[2019-08-07 01:39] LABS: Troponin 5 6HR 26.92 ng/L (0-10)
[2019-08-07 01:56] LABS: Troponin 5 6HR Delta -0.08 ng/L (0-12)
[2019-08-07 05:02] LABS: Basophils % 0.4 %; Eosinophils # 0.2 10^3/uL (0.0-0.8); Eosinophils % 2.5 %; Hematocrit 35.6 % (37.0-47.0); Hemoglobin 9.9 g/dL (11.5-15.3); Lymphocytes # 0.9 10^3/uL (0.8-4.8); Lymphocytes % 9.7 %; Mean Corpuscular HGB Conc 27.8 g/dL (30.0-36.0); Mean Corpuscular Hemoglobin 24.6 pg (28.0-34.0); Mean Corpuscular Volume 88.6 fL (81-99); Mean Platelet Volume 11.4 fL (7.4-10.4); Monocytes # 0.5 10^3/uL (0.2-0.9); Monocytes % 4.8 %; Neutrophils # 7.8 10^3/uL (1.8-7.7); Neutrophils % 82.1 %; Nucleated Red Blood Cells % 0 %; Platelet Count 266 10^3/cmm (130-400); Red Blood Count 4.02 10^6/uL (4.1-5.3); Red Cell Distribution Width 17.7 % (12.1-15.1); White Blood Count 9.5 10^3/uL (4.0-10.0)
[2019-08-07 05:42] LABS: Blood Urea Nitrogen 14 mg/dL (6-20); Calcium 9.6 mg/dL (8.5-10.5); Carbon Dioxide 23 mmol/L (22-29); Chloride 97 mmol/L (98-107); Glomerular Filtration Rate 31.3 mL/min (90-130); Glucose 166 mg/dL (74-109); Magnesium 2.2 mg/dL (1.7-2.3); Osmolality Calculated 282 mOsm/kg (285-295); Sodium 136 mmol/L (136-145)
[2019-08-07 06:55] LABS: Glucose Point of Care 117 mg/dL (70-110)
[2019-08-07] MEDS: apixaban 5 mg Tablet PO ×2 (08:52→17:03)
[2019-08-07] MEDS: bumetanide 1 mg Tablet PO (08:52)
[2019-08-07] MEDS: amlodipine 10 mg Tablet PO (08:53)
[2019-08-07 11:38] LABS: Glucose Point of Care 127 mg/dL (70-110)
[2019-08-07] MEDS: nystatin powder 15 gm Btl 1 APPLIC TOPICAL ×2 (11:39→17:03)
--- NOTE | 2019-08-07 12:44 | USCV_ITS ---
Ana Lilia Miller Age: 54 Gender: F : 1965 Exam Date: 08/07/2019 13:12 Ordering Phys: Neal Power MD Technologist: Stephanie Saini [place] [facility] [place]: CHF BP: 133 / 72 HR: 101 Rhythm: Sinus Technical Quality: limited windows due to body habitus MEASUREMENTS (Male / Female) Normal Values 2D ECHO LA Width 4.1 cm LA Height 5.1 cm RA Width 3.3 cm RA Height 4.1 cm M-MODE LV Diastolic Diameter MM 6.6 cm 4.2 - 5.9 / 3.9 - 5.3 cm LV Systolic Diameter MM 4.2 cm LV Ejection Fraction MM Teich 65.0 % IVS Diastolic Thickness MM 0.9 cm 0.6 - 1.0 / 0.6 - 0.9 cm IVS Systolic Thickness MM 1.5 cm LVPW Diastolic Thickness MM 0.8 cm 0.6 - 1.0 / 0.6 - 0.9 cm LVPW Systolic Thickness MM 1.9 cm FINDINGS Left Ventricle This examination is technically uninterpretable due to massive obesity Right Ventricle Right ventricle not well visualized. Right Atrium Right atrium not well visualized. Left Atrium Left atrium not well visualized. Mitral Valve Not visualized Aortic Valve Not visualized Tricuspid Valve Not visualized Pulmonic Valve Not visualized Pericardium No obvious effusion Aorta Not visualized CONCLUSIONS This examination is technically uninterpretable due to massive obesity. The previous examination attempted 3 months ago with similar findings Dr. Feng Willard MD (Electronically Signed) Final Date: 07 August 2019 17:17 S
[2019-08-07] MEDS: FUROsemide 10 mg/mL SDV 4mL 40 MG IVP ×2 (12:50→23:10)
[2019-08-07] MEDS: famotidine 20 mg/2 mL INJ IVP ×2 (12:50→23:09)
[2019-08-07] MEDS: metoprolol tartrate 50 mg Tablet PO ×2 (12:51→17:03)
--- NOTE | 2019-08-07 12:52 | PC.CHAP ---
Pastoral Care Encounter/Spiritual Assessment Type of Contact [] Declined bull wheel worker visit [x] Patient/Family/Request visit [] Outpatient visit [] Follow-up visit [] Physician referral [] Code/Alert [] Routine visit [] Staff referral [] Actively dying [] Patient sleeping [] Family support [] [] Out of room [] Palliative care [] [] Receiving care in room [] Pre-surgical visit [] Trauma [x] Long length of stay [] ICU visit [] Other: Relational/Emotional Strength [x] Patient feels connected with others/family/visitors/staff [x] Distress [] Loneliness/isolation [] Abandonment Spirituality of Patient [x] Person of [place] [] Attends Yazdanism of their [place] [x] Believes in Prayer [] Reads Bible or Spiritism materials [] There are Spiritual issues to be addressed 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 Interventions [x] Prayer [x] Active listening [x] Non-anxious presence [] Spiritual/emotional support [] Crisis/trauma care [] Spiritual counseling [] Bereavement support [] Provided bereavement packet [] Provided Bible/devotional materials [] Provided toy/stuffed animal, coloring book to patient or family member [x] Completed spiritual assessment [] Provided Communion [] Anointing/[place] [] Salvation [] Other: Impact on Illness or Injury [] Angry [] Fearful [] Anxious [] Often cries [] Exhaustion [x] Unable to work [] Unable to attend adventist [x] Unable to walk/stand [] Unable to read [x] Unable to drive [] Unable to eat/drink [] Unable to sleep [] Unable to be with family [] Other: Summary She was aable to communiicate feelings, able to bath. Not sure about tesst or when she can go home. Time spent with patient 15 min.
--- NOTE | 2019-08-07 13:37 | P.PN_ITS ---
Subjective Subjective: Interval history: Admitted overnight. H&P and labs noted. On evaluation this morning patient is on Cardizem drip of 10. Her heart rate is ranging from 102?120. On evaluation this morning patient is tachypneic, states she is better than yesterday but still feeling out of breath. She denies of having any palpitations at present along with nausea, vomiting, diarrhea, abd ominal pain. Medications: Medication Review Details: Med rec not done completely. Patient states she is on Imdur and Coreg. Vitals/I&O/Wt Last Vital Signs Temp 99.1 F 08/07/19 11:00 Pulse 102 H 08/07/19 11:00 Resp 22 H 08/07/19 11:00 BP 152/90 08/07/19 11:00 Pulse Ox 92 08/07/19 11:00 08/06/19 08/07/19 08/07/19 22:59 06:59 14:59 Intake Total 800 / 800 240 / 240 Balance 800 / 800 240 / 240 Weight last 48 hrs Weight 181.437 kg Physical Exam Narrative: EXAM NARRATIVE: General: Acute distress due to tachypnea, AO x3 HEENT: PERRLA, pupils bilaterally equal and reactive Chest: Normal vesicular breath sounds, bilateral fine crackles to the mid chest, equal good air entry bilaterally CVS: S1-S2 irregular, no murmurs, no tachycardia, no gallops, no rubs Abdomen: Soft, nontender, no organomegaly, bowel sounds present, morbidly obese Neuro: No focal deficits, no facial deformity, AO x3, power 5/5 in all limbs Data : 08/07/19 03:58 08/07/19 03:58 A&P Assessment and plan (1) Shortness of breath: Status: Acute Code(s): R06.02 - Shortness of breath (2) Congestive heart failure: Status: Acute Code(s): I50.9 - Heart failure, unspecified (3) Atrial fibrillation with RVR: Status: Acute Code(s): I48.91 - Unspecified atrial fibrillation (4) DELMIS (obstructive sleep apnea): Status: Acute Code(s): G47.33 - Obstructive sleep apnea (adult) (pediatric) (5) Chronic kidney disease, stage III (moderate): Status: Acute Code(s): N18.3 - Chronic kidney disease, stage 3 (moderate) (6) Diabetes mellitus type 2, noninsulin dependent: Status: Acute Code(s): E11.9 - Type 2 diabetes mellitus without complications Additional A&P Information Shortness of breath: Most likely multifactorial. Congestive heart failure along with DELMIS.: proBNP 1800. This is the highest proBNP she has had. More than her recent admission. Patient at present is on Bumex 1 mg daily. Will stop Bumex and switch to 40 mg IV Lasix every 12 hourly with first dose right now. There is no documented output in the chart. Strict intake output charting. Daily weights. Oxygen supplementation keeping saturation over 92%. Still noncompliant with her BiPAP at home. States BiPAP needs cleaning and cannot afford right now. Patient is on hydrocodone high-dose every 4 hourly as needed at home as well. That will also be contributing to her symptoms. Will decrease the dose and increase the frequency. Patient having low-grade fevers overnight. White count seems to be at baseline as compared to her recent discharge. We will get CT chest without contrast to rule out any infiltration. Will be difficult to assess on x-ray given the fluid overload. Check procalcitonin. Rule out noninfectious sources of fever. We will get lower limb Dopplers. Paroxysmal atrial fibrillation with RVR States she takes Coreg at home. As per the last discharge patient was not on Coreg. At present she is on Cardizem at 10 with heart rate ranging from 102?110. Patient's blood pressure is well maintained. We will start her on Lopressor 50 mg twice daily with first dose right now and try to titrate off Cardizem keeping heart rate around 100 bpm. Looking at the x-ray patient most likely have increased LA size. We will start patient on Imdur 30 mg daily. Patient states she already takes but not in medical reconciliation. Continue with Eliquis 5 mg twice daily for anticoagulation. Type 2 diabetes: Continue with sliding scale moderate dose Chronic kidney disease: Creatinine at baseline Medical reconciliation done for nephrotoxic drugs. Hypertension: Patient blood pressure is mildly elevated. For now we will stop the amlodipine as planning to start Imdur as will help with decreasing LA pressures and pulmonary artery pressures in view of difficult to control A. fib with RVR since last admission. DVT prophylaxis not needed she is on Eliquis Full code GI prophylaxis: Famotidine twice daily Attestations Medical Necessity Statement*: Needs continued hospitalization for management of A. fib with RVR, congestive heart failure. Time Spent in Patient Care: Greater than 35 minutes Coding Level of Care Code Acute Supervisor Microwave for Chg Fwd Diagnoses Shortness of breath R06.02 Congestive heart failure I50.9 Atrial fibrillation with RVR I48.91 DELMIS (obstructive sleep apnea) G47.33 Chronic kidney disease, stage III (moderate) N18.3 Diabetes mellitus type 2, noninsulin dependent E11.9
--- NOTE | 2019-08-07 13:38 | CTR_ITS ---
PROCEDURE INFORMATION: Exam: CT Chest Without Contrast Exam date and time: 08/07/2019 3:53 PM Age: 54 years old Clinical indication: Patient HX: Chf/pneumonia, ex smoker; Additional info: Chf and pneumonia TECHNIQUE: Imaging protocol: Computed tomography of the chest without contrast. Total DLP: 1426.33 mGy-cm Radiation optimization: All CT scans at this facility use at least one of these dose optimization techniques: automated exposure control; mA and/or kV adjustment per patient size (includes targeted exams where dose is matched to clinical indication); or iterative reconstruction. COMPARISON: CR XR chest 1V portable [id number] 08/06/2019 7:18 PM FINDINGS: Lungs: A calcified granuloma seen in the lingula. There are diffuse ground-glass opacities present within the hemithoraces bilaterally and mild bronchial wall thickening present, findings that may represent mild pulmonary edema. Pleural space: Unremarkable. No pneumothorax. No pleural effusion. Heart: Unremarkable. No cardiomegaly. No pericardial effusion. Mediastinum: There is mild lipomatosis of the superior mediastinum. Aorta: Unremarkable. No aortic aneurysm. Lymph nodes: The a calcified subcarinal lymph node is present. Spleen: Calcifications are seen within the spleen compatible with calcified granulomas. Bones/joints: Unremarkable. No acute fracture. Soft tissues: Unremarkable. CT/CT chest [facility] [id number] IMPRESSION: 1. Ground-glass opacities in the hemithoraces bilaterally with mild bronchial wall thickening, findings could represent mild pulmonary edema. 2. Mild superior mediastinal lipomatosis Radiation Dose CTDIVOL = (mGy): DLP = 1426.33 (mGy-cm)
--- NOTE | 2019-08-07 13:46 | USCV_ITS ---
Ana Lilia Miller Age: 54 Gender: F : 1965 Exam Date: 08/07/2019 15:56 Ordering Phys: Neal Power MD Technologist: Gustavo Gilman Exam Location: [facility] – [place] Indication: r/o DVT HISTORY: Lower extremity swelling. CHF PROCEDURES: Bilaterally, the common femoral, superficial femoral, profunda femoral, popliteal, posterior tibial, greater saphenous veins, and the peroneal trunk were identified and interrogated in the standard fashion. These veins were found to be easily compressible with spontaneous blood flow. FINDINGS: Normal 2-D Doppler and augmentation and compressibility throughout the lower extremity venous structures. Additional imaging through the proximal calf veins also reveals no thrombus. Limited evaluation of the greater saphenous vein is patent with no thrombus. CONCLUSIONS No DVT bilateral lower extremities. Dr. Mary Ellen Ya DO (Electronically Signed) Final Date: 07 August 2019 16:16 S
[2019-08-07 13:59] LABS: Iron 39 ug/dL (37-145)
[2019-08-07 14:26] LABS: Procalcitonin 0.11 ng/mL (0-0.5)
[2019-08-07 14:32] LABS: Percent Saturation 10.9 % (20-50); Total Iron Binding Capacity 356 mg/dL; Unsaturated Iron Binding 317 ug/dL (112-347)
--- NOTE | 2019-08-07 16:41 | PC.RESP ---
Pt has order for auto-titrating cpap at home. 11-17 as of 02/14/2019.
[2019-08-07 16:48] LABS: Glucose Point of Care 148 mg/dL (70-110)
--- NOTE | 2019-08-07 20:59 | PC.NURSE ---
Cardizem drip turned off at 1930. Patient's heart rate ranging 70s-90s A-fib. Will continue to monitor.
[2019-08-07 21:46] LABS: Glucose Point of Care 144 mg/dL (70-110)
[2019-08-08] VITALS (9 sets, daily range): BP systolic 98–130; BP diastolic 61–77; PULSE 81–105; RESP 17–27; TEMP 36.4–37.2; O2SAT 92–99
--- NOTE | 2019-08-08 00:19 | PC.NURSE ---
Patient accidentally pulled out IV in left upper arm. New IV started in right AC 20 gauge. Dressing applied.
[2019-08-08 04:14] LABS: Alanine Aminotransferase 19 U/L (0-33); Albumin Level 3.8 g/dL (3.5-5.2); Alkaline Phosphatase 80 IU/L (35-105); Anion Gap 16.5 (5-19); Aspartate Amino Transferase 10 U/L (0-32); Blood Urea Nitrogen 20 mg/dL (6-20); Calcium 9.1 mg/dL (8.5-10.5); Carbon Dioxide 30 mmol/L (22-29); Chloride 93 mmol/L (98-107); Globulin 3.2 g/dL (1.3-4.6); Glomerular Filtration Rate 27.5 mL/min (90-130); Glucose 153 mg/dL (74-109); Potassium 3.5 mmol/L (3.5-5.1); Sodium 136 mmol/L (136-145); Total Bilirubin 1.4 mg/dL (0.15-1.2)
[2019-08-08 04:33] LABS: Basophils % 0.3 %; Eosinophils # 0.3 10^3/uL (0.0-0.8); Eosinophils % 3.3 %; Hematocrit 33.5 % (37.0-47.0); Hemoglobin 9.7 g/dL (11.5-15.3); Lymphocytes # 0.9 10^3/uL (0.8-4.8); Lymphocytes % 10.3 %; Mean Corpuscular Hemoglobin 24.7 pg (28.0-34.0); Mean Corpuscular Volume 85.5 fL (81-99); Mean Platelet Volume 11.2 fL (7.4-10.4); Monocytes # 0.5 10^3/uL (0.2-0.9); Monocytes % 5.3 %; Neutrophils # 7.1 10^3/uL (1.8-7.7); Neutrophils % 80.2 %; Nucleated Red Blood Cells % 0 %; Platelet Count 278 10^3/cmm (130-400); Red Blood Count 3.92 10^6/uL (4.1-5.3); Red Cell Distribution Width 17.8 % (12.1-15.1); White Blood Count 8.9 10^3/uL (4.0-10.0)
[2019-08-08 06:41] LABS: Glucose Point of Care 129 mg/dL (70-110)
[2019-08-08] MEDS: metoprolol tartrate 50 mg Tablet PO ×2 (09:20→18:12)
[2019-08-08] MEDS: isosorbide mononitrate ER 30 mg Tablet PO (09:21)
[2019-08-08] MEDS: apixaban 5 mg Tablet PO ×2 (09:22→18:12)
[2019-08-08] MEDS: FUROsemide 10 mg/mL SDV 4mL 40 MG IVP (09:22)
[2019-08-08] MEDS: nystatin powder 15 gm Btl 1 APPLIC TOPICAL ×2 (09:23→18:11)
[2019-08-08 11:47] LABS: Glucose Point of Care 127 mg/dL (70-110)
[2019-08-08] MEDS: acetaZOLAMIDE 250 mg Tablet 500 MG PO (14:02)
[2019-08-08] MEDS: famotidine 20 mg/2 mL INJ IVP (14:13)
--- NOTE | 2019-08-08 15:34 | PM.PN ---
Subjective Subjective: Interval history: No acute events overnight. This morning on evaluation patient states she is feeling a lot better. Overall patient is 4 L negative last 24 hours. She has been rate controlled. She denies of having any palpitations at present along with nausea, vomiting, diarrhea, abdominal pain. Medications: Medication Review Details: . Vitals/I&O/Wt Last Vital Signs Temp 99.0 F 08/08/19 10:53 Pulse 90 08/08/19 12:33 Resp 17 08/08/19 10:53 BP 126/65 08/08/19 10:53 Pulse Ox 96 08/08/19 12:33 08/08/19 08/08/19 08/08/19 06:59 14:59 22:59 Intake Total 600 / 1080 480 / 480 Output Total 2600 / 5700 1800 / 1800 Balance -2000 / -4620 -1320 / -1320 Weight last 48 hrs Weight 200.624 kg Weight 181.437 kg Physical Exam Narrative: EXAM NARRATIVE: General: Acute distress due to tachypnea, AO x3 HEENT: PERRLA, pupils bilaterally equal and reactive Chest: Normal vesicular breath sounds, better than before but still has mild bilateral fine crackles to the mid chest, equal good air entry bilaterally CVS: S1-S2 irregular, no murmurs, no tachycardia, no gallops, no rubs Abdomen: Soft, nontender, no organomegaly, bowel sounds present, morbidly obese Neuro: No focal deficits, no facial deformity, AO x3, power 5/5 in all limbs Data : 08/08/19 03:20 08/08/19 03:20 A&P Assessment and plan (1) Shortness of breath: Status: Acute Code(s): R06.02 - Shortness of breath (2) Congestive heart failure: Status: Acute Code(s): I50.9 - Heart failure, unspecified (3) Atrial fibrillation with RVR: Status: Acute Code(s): I48.91 - Unspecified atrial fibrillation (4) DELMIS (obstructive sleep apnea): Status: Acute Code(s): G47.33 - Obstructive sleep apnea (adult) (pediatric) (5) Chronic kidney disease, stage III (moderate): Status: Acute Code(s): N18.3 - Chronic kidney disease, stage 3 (moderate) (6) Diabetes mellitus type 2, noninsulin dependent: Status: Acute Code(s): E11.9 - Type 2 diabetes mellitus without complications Additional A&P Information Shortness of breath: Most likely multifactorial. Congestive heart failure along with DELMIS.: proBNP 1800. This is the highest proBNP she has had. More than her recent admission. Patient is going into contraction alkalosis. We will decrease her Lasix to 40 mg IV daily. We will give her Diamox to 50 mg IV today. Strict intake output charting. Daily weights. Oxygen supplementation keeping saturation over 92%. Still noncompliant with her BiPAP at home. States BiPAP needs cleaning and cannot afford right now. We will try to arrange for a CPAP at home. Patient is on hydrocodone high-dose every 4 hourly as needed at home as well. That will also be contributing to her symptoms. Will decrease the dose and increase the frequency. Paroxysmal atrial fibrillation with RVR: Rate controlled now. Continue with metoprolol 50 mg twice daily. Imdur added to her treatment due to difficult to control atrial fibrillation given mildly dilated LA. We will continue Imdur at 30 mg as blood pressure is well tolerated. Continue with Eliquis 5 mg twice daily for anticoagulation. Type 2 diabetes: Continue with sliding scale moderate dose. Has required only 4 units last 24 hours. Will check HbA1c tomorrow morning. Chronic kidney disease: Creatinine at baseline Medical reconciliation done for nephrotoxic drugs. Hypertension: Better controlled after adding Imdur. Blood pressure is at goal. DVT prophylaxis not needed she is on Eliquis Full code GI prophylaxis: Famotidine twice daily Attestations Medical Necessity Statement*: Needs continued hospitalization for management of congestive heart failure Time Spent in Patient Care: 16 - 35 minutes Coding Level of Care Code Acute Crm Marketing Executive for g Fwd Diagnoses Shortness of breath R06.02 Congestive heart failure I50.9 Atrial fibrillation with RVR I48.91 DELMIS (obstructive sleep apnea) G47.33 Chronic kidney disease, stage III (moderate) N18.3 Diabetes mellitus type 2, noninsulin dependent E11.9
[2019-08-08] MEDS: HYDROcodone-acetaminophen 5-325 mg Tablet 1 TAB PO (16:08)
[2019-08-08 16:43] LABS: Glucose Point of Care 161 mg/dL (70-110)
[2019-08-08 20:54] LABS: Glucose Point of Care 158 mg/dL (70-110)
[2019-08-09] MEDS: famotidine 20 mg/2 mL INJ IVP ×2 (00:42→13:10)
[2019-08-09 03:38] VITALS: BP 117/73; PULSE 88; RESP 25; TEMP 36.4; O2SAT 90
[2019-08-09] MEDS: HYDROcodone-acetaminophen 5-325 mg Tablet 1 TAB PO (03:42)
[2019-08-09 05:18] VITALS: PULSE 84; RESP 16; O2SAT 93
[2019-08-09 05:35] LABS: Basophils % 0.2 %; Eosinophils # 0.3 10^3/uL (0.0-0.8); Hematocrit 36.2 % (37.0-47.0); Hemoglobin 10.3 g/dL (11.5-15.3); Lymphocytes # 1.2 10^3/uL (0.8-4.8); Lymphocytes % 14.5 %; Mean Corpuscular HGB Conc 28.5 g/dL (30.0-36.0); Mean Corpuscular Hemoglobin 24.6 pg (28.0-34.0); Mean Corpuscular Volume 86.4 fL (81-99); Mean Platelet Volume 11.4 fL (7.4-10.4); Monocytes # 0.4 10^3/uL (0.2-0.9); Monocytes % 5.4 %; Neutrophils # 6.2 10^3/uL (1.8-7.7); Neutrophils % 75.4 %; Nucleated Red Blood Cells % 0 %; Platelet Count 276 10^3/cmm (130-400); Red Blood Count 4.19 10^6/uL (4.1-5.3); Red Cell Distribution Width 17.9 % (12.1-15.1); White Blood Count 8.2 10^3/uL (4.0-10.0)
[2019-08-09 05:50] LABS: Alanine Aminotransferase 16 U/L (0-33); Albumin Level 3.7 g/dL (3.5-5.2); Alkaline Phosphatase 89 IU/L (35-105); Anion Gap 13.5 (5-19); Aspartate Amino Transferase 10 U/L (0-32); Blood Urea Nitrogen 31 mg/dL (6-20); Calcium 9.6 mg/dL (8.5-10.5); Carbon Dioxide 32 mmol/L (22-29); Chloride 96 mmol/L (98-107); Globulin 3.5 g/dL (1.3-4.6); Glucose 131 mg/dL (74-109); Magnesium 2.4 mg/dL (1.7-2.3); Potassium 3.5 mmol/L (3.5-5.1); Sodium 138 mmol/L (136-145); Total Bilirubin 0.9 mg/dL (0.15-1.2); Total Protein 7.2 g/dL (6.6-8.7)
[2019-08-09 05:57] LABS: Estmated Average Glucose 148; Hemoglobin A1C 6.8 % (4.0-6.0)
[2019-08-09 06:42] LABS: Glucose Point of Care 115 mg/dL (70-110)
[2019-08-09 07:04] VITALS: BP 119/75; PULSE 88; RESP 14; TEMP 36.7; O2SAT 96
[2019-08-09] MEDS: metoprolol tartrate 50 mg Tablet PO (08:24)
[2019-08-09] MEDS: FUROsemide 40 mg Tablet PO (08:24)
[2019-08-09] MEDS: apixaban 5 mg Tablet PO (08:25)
[2019-08-09] MEDS: isosorbide mononitrate ER 30 mg Tablet PO (08:25)
[2019-08-09] MEDS: nystatin powder 15 gm Btl 1 APPLIC TOPICAL (08:26)
--- NOTE | 2019-08-09 09:02 | P.DS_ITS ---
Discharge Providers Date of Admission: 08/06/19 20:58 Date of Discharge: 08/09/19 Attending Provider at Admission: Joaquín Chang MD Attending Provider at Discharge: Neal Power MD Primary Care Provider: Mervat Nguyen Diagnoses at Discharge Discharge Diagnosis (1) Shortness of breath: Status: Acute (2) Congestive heart failure: Status: Acute (3) Atrial fibrillation with RVR: Status: Acute (4) DELMIS (obstructive sleep apnea): Status: Acute Problem details: Reports not currently compliant with therapy due to contaminated machine (5) Chronic kidney disease, stage III (moderate): Status: Acute Problem details: Cr has ranged 1.6-2.1 since 11/27 (6) Diabetes mellitus type 2, noninsulin dependent: Status: Acute Problem details: last A1c in 03/30 was 7.4 Reason for Visit Reason for Visit: Reason For Visit: CHF EXACERBATION (DIASTOLIC), HYPOXIC RESP FAILURE Hospital Course Discharge Summary: Ana Lilia Miller is a 54 year old female who carries diagnoses of morbid obesity, oxygen dependent 3 L, sleep apnea, atrial fibrillation, chronic anticoagulation, chronic kidney stage III, hypertension, was recently discharged from the hospital for management of A. fib RVR came in with chief complaint of palpitations and shortness of breath. Patient is stating that she was discharged on 3 L of oxygen at home, she has not been able to use her BiPAP at home, she has been compliant with her medications but today she started having palpitations and some chest discomfort and decided to come to ED for evaluation on August 06. Patient in the ER was found to be in A. fib with rapid ventricular response and was found to be in congestive heart failure. On evaluation it was found out that the patient was not on any rate limiting drug or her previously prescribed Imdur since last discharged. She was put back on her oral medications for atrial fibrillation and her rate was really limited and was off Cardizem drip in 24 hours. Patient was continued to have aggressive diuresis for her CHF and was overall around 7 L negative. On presentation patient's creatinine was around 1.6 which have changed to 2.0 and I believe patient is most euvolemic when her creatinine functions is around 2.0 and this is her new baseline. Patient on last discharge as well was most euvolemic when her creatinine functions were around 2. This was deteriorated and explained to the patient. It was also found out that patient has had a sleep study in the past 6-month for which she had qualified for CPAP though she had a BiPAP at home which has mold growing in it and patient did not have any money to get it cleaned. senior web services developer were consulted and CPAP has been arranged for patient to be used at home at the setting she was qualified for with a sleep study. Patient is being discharged at euvolemic state on oral diuresis in hemodynamically stable condition at her baseline oxygen supplementation to follow-up with her primary care physician. Physical Exam Narrative: EXAM NARRATIVE: General: Acute distress due to tachypnea, AO x3 HEENT: PERRLA, pupils bilaterally equal and reactive Chest: Normal vesicular breath sounds, better than before but still has mild bilateral fine crackles to the mid chest, equal good air entry bilaterally CVS: S1-S2 irregular, no murmurs, no tachycardia, no gallops, no rubs Abdomen: Soft, nontender, no organomegaly, bowel sounds present, morbidly obese Neuro: No focal deficits, no facial deformity, AO x3, power 5/5 in all limbs Discharge Data Data Completed and Pending: Completed Studies During Hospitalization Category Date Time Status CT chest wo con 7 1250 Urgent Cat Scan 08/07/19 13:38 Completed XR chest 1V shania ble [id number] Urgent Exams 08/06/19 18:42 Completed CV echo limited 9 3308 Routine Ultrasound 08/07/19 12:44 [place] [id number] Routin e Ultrasound 08/07/19 13:46 Completed Pending at discharge Category Date Time Status Complete Blood Co unt w/Auto AM LABS Lab 08/10/19 04:00 Ordered Comprehensive Met abolic Panel AM LA BS Lab 08/10/19 04:00 Ordered Magnesium AM LABS Lab 08/10/19 04:00 Ordered Labs from last 24 hours 08/09/19 08/09/19 08/09/19 06:38 03:49 03:49 WBC RBC Hgb Hct MCV MCH MCHC RDW Plt Count MPV Neut % (Auto) Lymph % (Auto) Gillespie % (Auto) Eos % (Auto) Baso % (Auto) Neut # (Auto) Lymph # (Auto) Gillespie # (Auto) Eos # (Auto) Baso # (Auto) Nucleated RBC % (a uto) Nucleated RBCs # Sodium 138 Potassium 3.5 Chloride 96 L Carbon Dioxide 32 H Anion Gap 13.5 BUN 31 H Creatinine 2.0 H GFR Calculation 26.0 L Glucose 131 H POC Glucose 115 Estimat Average Gl ucose 148 Hemoglobin A1c 6.8 H Calcium 9.6 Magnesium 2.4 H Total Bilirubin 0.9 AST 10 ALT 16 Alkaline Phosphata se 89 Total Protein 7.2 Albumin 3.7 Globulin 3.5 08/09/19 08/08/19 08/08/19 03:49 20:44 16:39 WBC 8.2 RBC 4.19 Hgb 10.3 L Hct 36.2 L MCV 86.4 MCH 24.6 L MCHC 28.5 L RDW 17.9 H Plt Count 276 MPV 11.4 H Neut % (Auto) 75.4 Lymph % (Auto) 14.5 Gillespie % (Auto) 5.4 Eos % (Auto) 4.0 Baso % (Auto) 0.2 Neut # (Auto) 6.2 Lymph # (Auto) 1.2 Gillespie # (Auto) 0.4 Eos # (Auto) 0.3 Baso # (Auto) 0.0 Nucleated RBC % (a uto) 0 Nucleated RBCs # 0.0 Sodium Potassium Chloride Carbon Dioxide Anion Gap BUN Creatinine GFR Calculation Glucose POC Glucose 158 161 Estimat Average Gl ucose Hemoglobin A1c Calcium Magnesium Total Bilirubin AST ALT Alkaline Phosphata se Total Protein Albumin Globulin 08/08/19 10:52 WBC RBC Hgb Hct MCV MCH MCHC RDW Plt Count MPV Neut % (Auto) Lymph % (Auto) Gillespie % (Auto) Eos % (Auto) Baso % (Auto) Neut # (Auto) Lymph # (Auto) Gillespie # (Auto) Eos # (Auto) Baso # (Auto) Nucleated RBC % (a uto) Nucleated RBCs # Sodium Potassium Chloride Carbon Dioxide Anion Gap BUN Creatinine GFR Calculation Glucose POC Glucose 127 Estimat Average Gl ucose Hemoglobin A1c Calcium Magnesium Total Bilirubin AST ALT Alkaline Phosphata se Total Protein Albumin Globulin Vitals: Last Vital Signs Temp 98.0 F 08/09/19 07:04 Pulse 88 08/09/19 07:04 Resp 14 08/09/19 07:04 BP 119/75 08/09/19 07:04 Pulse Ox 96 08/09/19 07:04 Discharge Plan Discharge Patient Disposition: Home, Self-Care Condition: Stable Prescriptions: New isosorbide mononitrate 30 mg Tablet Extended Release 24 Hr 30 mg PO DAILY Qty: 30 RF: 0 metoprolol tartrate 50 mg Tablet 50 mg PO BID Qty: 60 RF: 0 Continued furosemide 40 mg Tablet 40 mg PO DAILY Qty: 15 RF: 1 nystatin-triamcinolone 100,000-0.1 unit/g-% cream 1 applic TOPICAL BID Qty: 30 RF: 0 glipizide 2.5 mg Tablet Extended Release 24hr 2.5 mg PO DAILY RF: 0 Eliquis 5 mg Tablet 5 mg PO BID RF: 0 diclofenac sodium 1 % Gel 4 g TOPICAL QID PRN (Reason: Pain) RF: 0 Changed Imitrex 25 mg Tablet 25 mg PO Q6H PRN (Reason: Migraine Headache) Qty: 0 RF: 0 hydrocodone-acetaminophen 10-325 mg Tablet 1 tab PO Q6H PRN (Reason: Pain, Mild) Qty: 0 RF: 0 Wellbutrin SR 200 mg Tablet Sustained-Release 12 Hr 200 mg PO DAILY Qty: 0 RF: 0 Zoloft 200 mg 100 mg PO DAILY Qty: 0 RF: 0 Discontinued amlodipine 10 mg Tablet 10 mg PO DAILY RF: 0 chlorzoxazone 500 mg Tablet 500 mg PO TID PRN (Reason: Spasms) RF: 0 Discharge Orders: Discharge Order (Routine); Ordered 08/09/19 Ordered By: Neal Power Other Ambulatory Orders: Basic Metabolic Panel (Routine) Timeframe: 1 Week Facility: [facility] - Location: Lab - Main Lab Ordered By: Neal Power DME: CPAP (Order) Location: None Selected Ordered By: Neal Power Referrals: Mervat Nguyen [Primary Care Provider] - 1 week (You have an follow-up apointment with Mervat Nguyen on August at 2:45p.m. If, you have any questions or need to reschedule. Please, call ) Discharge Diet: Cardiac and Low Salt Discharge Activity: Resume usual activity Patient Instructions: Metoprolol (By mouth), Isosorbide Mononitrate (By mouth), Heart Failure (DC), Atrial Fibrillation (DC), Sleep Apnea Syndrome (DC), Chronic Kidney Disease (DC), Diabetes Mellitus Type 2 in Adults (DC), Obesity (DC), Hypertension (DC), CHF Stoplight Discharge Date/Time: 08/09/19 15:30 Discharge Attestations Time Spent in Discharge Care*: greater than 30 min Specific Discharge Activities: Specific discharge activities: educating patient, discussing with hospice case manager/social workers/dc planners and evaluating patient/reviewing data Status at Discharge: Cognitive status at discharge: cognitively intact , Behavioral status at discharge: cooperative , Functional status at discharge: independent ambulation Overall status at discharge: patient is back to baseline Quality Metrics Clinical Quality Measures During this hospital stay, did patient experience: None Coding Level of Care Code Acute Receiving Room Clerk for Chg Fwd Diagnoses Shortness of breath R06.02 Congestive heart failure I50.9 Atrial fibrillation with RVR I48.91 DELMIS (obstructive sleep apnea) G47.33 Chronic kidney disease, stage III (moderate) N18.3 Diabetes mellitus type 2, noninsulin dependent E11.9
[2019-08-09 09:32] VITALS: O2SAT 86; O2SAT 93
[2019-08-09 10:50] VITALS: BP 119/68; PULSE 84; RESP 21; TEMP 36.8
[2019-08-09 11:28] LABS: Glucose Point of Care 151 mg/dL (70-110)
[2019-08-09 12:30] VITALS: BP 119/68; PULSE 84; RESP 21; TEMP 36.8; O2SAT 96
--- NOTE | 2019-08-09 14:26 | PC.SOCIAL ---
Pg 2 of IMM Pg 2 of IMM was explained to and signed by patient, copy was provided, and form was placed in chart. She verbalized understanding and had no questions.
== END 2019-08-09 15:30 | disposition home or self-care (01) | DRG 308 ==
LOC: ER 21:45 → CSU 21:45
PROVIDERS: Admitting Provider Internal Medicine; Emergency Provider Emergency Medicine; Family Provider Internal Medicine; PCP Internal Medicine; Visit Provider Student in an Organized Health Care Education/Training Program
DX: I48.0 Paroxysmal atrial fibrillation (principal); I50.31 Acute diastolic (congestive) heart failure; Z68.44 Body mass index [BMI] 60.0-69.9, adult; I13.0 Hypertensive heart and chronic kidney disease with heart failure and stage 1 through stage 4 chronic kidney disease, or unspecified chronic kidney disease; E11.22 Type 2 diabetes mellitus with diabetic chronic kidney disease; N18.3 Chronic kidney disease, stage 3 (moderate); G47.33 Obstructive sleep apnea (adult) (pediatric); E66.01 Morbid (severe) obesity due to excess calories; Z79.01 Long term (current) use of anticoagulants; Z88.1 Allergy status to other antibiotic agents; E03.9 Hypothyroidism, unspecified; Z87.891 Personal history of nicotine dependence
CPT/HCPCS: 12345; 36415; 36416; 36600; 71045; 71250; 80048; 80053; 82805; 82962; 83036; 83540; 83550; 83735; 83880; 84145; 84484; 85025; 93005; 93308; 93970; 94660; 94664; 96372; 96374; 96375; 97161; 97530; 99283; J1815; J1940; J3490

== ENCOUNTER 2019-11-09 16:36 | Inpatient (IN) | payer MEDICARE, MEDICAID, SELFPAY ==
[2019-11-09] VITALS (16 sets, daily range): BP systolic 103–154; BP diastolic 47–112; PULSE 98–126; RESP 8–63; TEMP 37–37.3; O2SAT 93–100; BMI 61.0
--- NOTE | 2019-11-09 16:48 | XR_ITS ---
WS: [id number] PORTABLE CHEST HISTORY: dyspnea COMPARISON: 08/06/2019 Diffuse coarsened interstitium. Haziness over both lungs is progressed since the prior study. Partial obscuration of the lower lung boucher. Pulmonary vasculature has increased. No pleural effusion or pn eumothorax. Cardiac size: Moderately enlarged cardiac silhouette. Mediastinum/Aorta: Moderate widening of the mediastinum. No osseous abnormality seen. XR/XR chest 1V portable [id number] IMPRESSION: 1. Development of moderate CHF and moderately enlarged heart. 2. Ectatic aorta. No pneumonia.
--- NOTE | 2019-11-09 16:48 | ECG_ITS ---
Measurements Intervals [place] Rate: 99 P: [place]: 0 QRS: 112 QRSD: 83 T: 44 QT: 373 QTc: 479 ATRIAL FIBRILLATION PATTERN CONSISTENT WITH PULMONARY DISEASE POSSIBLE RIGHT VENTRICULAR HYPERTROPHY Compared to ECG 08/07/2019 00:11:23 ST (T wave) deviation no longer present Electronically Signed On 11-10-2019 15:30:09 CDT by Renee Gutierrez M.D. [id number]
--- NOTE | 2019-11-09 17:15 | ED_ITS ---
HPI - SOB/Dyspnea General: Chief Complaint: Shortness of Breath/Dyspnea Stated Complaint: SOB, L SIDE DENTAL PAIN Time Seen by Provider: 11/09/19 17:15 History of Present Illness: HPI Narrative: Pt states she has been more short of breath for a week, She has been gaining lots of water weight. She saw Dr Gutierrez the other day and doubled her lasix but she continues to be short of breath. She states it got much worse 4 days ago and she had to turnher o2 up. From 3 to 4l NC, She is supposed to be on cpap at night but it doesnt work for her. She was having vaginal bleeding and Dr Gutierrez stopped her eliquis a month ago, she was on it for her a fib. She also bit her tongue last night in sleep MD elicited complaint: shortness of breath and cough Pertinent past history: congestive heart failure and diabetes Onset (ago): day(s) Context: anxiety Timing: constant Severity: severe Exacerbating factors: lying flat, exertion and movement Relieving factors: oxygen, upright position and medication Known history of: congestive heart failure Associated symptoms: Reports cough; Deny abdominal pain, chest pain, fever(s), nausea or vomiting Treatment prior to arrival: oxygen and diuretics Review of Systems General: Reports: 10 or more systems reviewed and unremarkable except in HPI and below Const: Denies: fever, chills or fatigue Eyes: Reports: other (eyelisd were swollen yesterday morning) ENMT: Reports: other (nit her tongue and cheek ) Card: Denies: chest pain or swelling of feet/ankles Resp: Reports: shortness of breath and non-productive cough GI: Denies: abdominal pain, nausea, vomiting, diarrhea, constipation or blood in stool : Denies: difficulty urinating Musc: Reports: extremity swelling; Denies: back pain Skin/Breast: Denies: rash Neuro: Denies: headache, numbness in extremities or weakness in extremities Psych: Reports: anxiety and sleeping less PFSH ED PFSH: Medical History Atrial fibrillation Chronic anticoagulation On hold due to vaginal bleeding Chronic kidney disease, stage III (moderate) Cr has ranged 1.6-2.1 since 11/27 Congestive heart failure COPD (chronic obstructive pulmonary disease) Diabetes mellitus type 2, noninsulin dependent last A1c in 03/30 was 7.4 Hypertension Hypothyroidism last TSH in 03/30 was 6.18 Morbid obesity with BMI of 60.0-69.9, adult DELMIS (obstructive sleep apnea) Reports not currently compliant with therapy due to contaminated machine Oxygen dependent Vaginal bleeding Surgical History History of dental surgery Status post biopsy of skin Family History Other Chronic kidney disease (CKD) Diabetes Hypertension Thyroid disease Social History (Updated 11/09/19 @ 20:52 by Joaquín Chang MD) Smoking and tobacco status: never smoked Alcohol intake: never Substance/Drug Use: never Physical Exam Const: COMMON NORMALS: oriented x3 GENERAL APPEARANCE: cooperative and in distress NUTRITIONAL APPEARANCE: obese HENMT: COMMON NORMALS: normocephalic HEAD & SCALP: normal to inspection and normocephalic FACE & SINUS: facial exam not normal MOUTH: tongue normal (healing bite [place] distal elft third, no signs of infection) THROAT: posterior oropharynx normal Neck/C-Spine: COMMON NORMALS: full ROM, no lymphadenopathy, supple and no meningeal signs GENERAL: Yes normal visual inspection and Yes trachea midline Chest: COMMONS NORMALS: inspection of chest normal Resp: EFFORT & INSPECTION: Yes able to speak in complete sentences and Yes uses accessory muscles AUSCULTATION: diminished lung sounds (severe) diffuse Cardio: COMMON NORMALS: negative for regular rhythm (irregularly irregular) RHYTHM: abnormal rhythm (irregularly irregular) and regular rhythm PERIPHERAL PULSES: radial pulses present and dorsalis pedis pulses present GI: COMMON NORMALS: normal to inspection, nondistended, normoactive bowel sounds, soft to palpation and non-tender INSPECTION: Yes normal to inspection AUSCULTATION: Yes normoactive bowel sounds PALPATION: Yes soft, No tender, No guarding and No rigid RECTAL EXAM: deferred : COMMON NORMALS: Yes no CVA tenderness BLADDER/KIDNEY EXAM: Yes no CVA tenderness Back/Pelvis: COMMON NORMALS: no CVA tenderness Extremity: COMMON NORMALS: normal to inspection, full ROM, normal capillary refill and no calf tenderness; negative for no pedal edema GENERAL: Yes edema Neuro: COMMON NORMALS: oriented x3, CN's II-XII intact bilaterally, moves all extremities and no focal motor deficits MENINGEAL SIGNS: Yes no meningeal signs Skin: COMMON NORMALS: no rashes or lesions noted GENERAL SKIN EXAM: no rashes or lesions noted Course Vital Signs: Vital signs: Vital Signs Temperature 98.6 F 11/09/19 17:09 Pulse Rate 115 H 11/09/19 22:11 Respiratory Rate 19 H 11/09/19 22:11 Blood Pressure 139/98 11/09/19 22:11 Pulse Oximetry 93 11/09/19 22:11 MDM - SOB/Dyspnea MDM Narrative: Medical decision making narrative: Pt has a fib with rvr, she is in acute chf exac, instead of cardizem I ordered esmolol as she is in acute chf exac, however it hasnt arrived from pharmacy so I ordered amiodarone for now. Pt has stopped her blood thinner due to vaginal bleeding, and she has an elevated d dimer, I ordered a cta but her cr is 1.7 so they may not do it, per nurse while pt was exerting herself her hr went up to to 190. She will need to go to icu Lab Data: Attestation: I reviewed the patient's lab results. Labs: Lab Results 11/09/19 11/09/19 11/09/19 Range/Units 17:35 17:35 17:35 WBC 10.7 H (4.0-10.0) 10^3/ uL RBC 3.97 L (4.1-5.3) 10^6/u L Hgb 9.4 L (11.5-15.3) g/dL Hct 34.4 L (37.0-47.0) % MCV 86.6 (81-99) fL MCH 23.7 L (28.0-34.0) pg MCHC 27.3 L (30.0-36.0) g/dL RDW 18.6 H (12.1-15.1) % Plt Count 284 (130-400) 10^3/c mm MPV 11.1 H (7.4-10.4) fL Neut % (Auto) 82.9 % Lymph % (Auto) 9.2 % Louisa % (Auto) 4.9 % Eos % (Auto) 2.1 % Baso % (Auto) 0.4 % Neut # (Auto) 8.9 H (1.8-7.7) 10^3/u L Lymph # (Auto) 1.0 (0.8-4.8) 10^3/u L Louisa # (Auto) 0.5 (0.2-0.9) 10^3/u L Eos # (Auto) 0.2 (0.0-0.8) 10^3/u L Baso # (Auto) 0.0 (0.0-0.1) 10^3/u L Nucleated RBC % (a uto) 0 % Nucleated RBCs # 0.0 /100WBC D-Dimer (0-0.59) ug/mIFE U Sodium 142 (136-145) mmol/L Potassium 4.3 (3.5-5.1) mmol/L Chloride 99 (98-107) mmol/L Carbon Dioxide 33 H (22-29) mmol/L Anion Gap 14.3 (5-19) BUN 21 H (6-20) mg/dL Creatinine 1.7 H (0.5-0.9) mg/dL GFR Calculation 31.3 L (90-130) mL/min Glucose 139 H (65-115) mg/dL Calculated Osmolal ity 293 (285-295) mOsm/k g Calcium 9.2 (8.5-10.5) mg/dL Total Bilirubin 1.0 (0.15-1.2) mg/dL AST 13 (0-32) U/L ALT 19 (0-33) U/L Alkaline Phosphata se 91 (35-105) IU/L Troponin T Baselin e 33 H (0-10) ng/mL Troponin T 120 Min james (0-10) ng/mL Delta Troponin T (0-10) ABS# NT-Pro-B Natriuret Pep 967 H (0-125) pg/mL Total Protein 6.5 L (6.6-8.7) g/dL Albumin 4.0 (3.5-5.2) g/dL Globulin 2.5 (1.3-4.6) g/dL 11/09/19 11/09/19 Range/Units 17:35 19:11 WBC (4.0-10.0) 10^3/ uL RBC (4.1-5.3) 10^6/u L Hgb (11.5-15.3) g/dL Hct (37.0-47.0) % MCV (81-99) fL MCH (28.0-34.0) pg MCHC (30.0-36.0) g/dL RDW (12.1-15.1) % Plt Count (130-400) 10^3/c mm MPV (7.4-10.4) fL Neut % (Auto) % Lymph % (Auto) % Louisa % (Auto) % Eos % (Auto) % Baso % (Auto) % Neut # (Auto) (1.8-7.7) 10^3/u L Lymph # (Auto) (0.8-4.8) 10^3/u L Louisa # (Auto) (0.2-0.9) 10^3/u L Eos # (Auto) (0.0-0.8) 10^3/u L Baso # (Auto) (0.0-0.1) 10^3/u L Nucleated RBC % (a uto) % Nucleated RBCs # /100WBC D-Dimer 0.74 H (0-0.59) ug/mIFE U Sodium (136-145) mmol/L Potassium (3.5-5.1) mmol/L Chloride (98-107) mmol/L Carbon Dioxide (22-29) mmol/L Anion Gap (5-19) BUN (6-20) mg/dL Creatinine (0.5-0.9) mg/dL GFR Calculation (90-130) mL/min Glucose (65-115) mg/dL Calculated Osmolal ity (285-295) mOsm/k g Calcium (8.5-10.5) mg/dL Total Bilirubin (0.15-1.2) mg/dL AST (0-32) U/L ALT (0-33) U/L Alkaline Phosphata se (35-105) IU/L Troponin T Baselin e (0-10) ng/mL Troponin T 120 Min james 35.66 H (0-10) ng/mL Delta Troponin T 2.66 (0-10) ABS# NT-Pro-B Natriuret Pep (0-125) pg/mL Total Protein (6.6-8.7) g/dL Albumin (3.5-5.2) g/dL Globulin (1.3-4.6) g/dL Imaging Data^: CXR: Attestation: I personally reviewed and interpreted this imaging study as follows: My impression: chf and cardiomegally EKG Data^: EKG 1: Attestation: I personally reviewed and interpreted this EKG as follows: EKG interpretation time: 17:52 Interpretation: a fib with rvr rate 118, poor r wave progression, normal st seg EKG 2: Attestation: I personally reviewed and interpreted this EKG as follows: EKG interpretation time: 19:20 Prior EKG tracings: available for review Interpretation: a fib with rvr, rate 119, poor r wave progression, artifact present Discharge Plan Discharge Patient Disposition: Admitted As Inpatient Admit Provider: Joaquín Chang Clinical Impression: Morbid obesity with BMI of 60.0-69.9, adult, Atrial fibrillation with RVR, Chronic kidney disease, stage III (moderate) Atrial fibrillation Qualifiers: Atrial fibrillation type: longstanding persistent Qualified Code(s): I48.11 - Longstanding persistent atrial fibrillation Congestive heart failure Qualifiers: Heart failure type: systolic Heart failure chronicity: acute on chronic Qualified Code(s): I50.23 - Acute on chronic systolic (congestive) heart failure Condition: Stable Referrals: Mervat Nguyen [Primary Care Provider] - Discharge Date/Time: 11/09/19 21:41 Coding Level of Care Code ED Sample Box Maker for Chg Fwd Exam Comprehensive
[2019-11-09] MEDS: FUROsemide 10 mg/mL SDV 10mL 100 MG IVP (17:50)
[2019-11-09] MEDS: aspirin 325 mg Tablet PO (17:51)
[2019-11-09 17:56] LABS: Basophils % 0.4 %; Eosinophils # 0.2 10^3/uL (0.0-0.8); Eosinophils % 2.1 %; Hematocrit 34.4 % (37.0-47.0); Hemoglobin 9.4 g/dL (11.5-15.3); Lymphocytes % 9.2 %; Mean Corpuscular HGB Conc 27.3 g/dL (30.0-36.0); Mean Corpuscular Hemoglobin 23.7 pg (28.0-34.0); Mean Corpuscular Volume 86.6 fL (81-99); Mean Platelet Volume 11.1 fL (7.4-10.4); Monocytes # 0.5 10^3/uL (0.2-0.9); Monocytes % 4.9 %; Neutrophils # 8.9 10^3/uL (1.8-7.7); Neutrophils % 82.9 %; Nucleated Red Blood Cells % 0 %; Platelet Count 284 10^3/cmm (130-400); Red Blood Count 3.97 10^6/uL (4.1-5.3); Red Cell Distribution Width 18.6 % (12.1-15.1); White Blood Count 10.7 10^3/uL (4.0-10.0)
[2019-11-09 18:08] LABS: D Dimer 0.74 ug/mIFEU (0-0.59)
[2019-11-09 18:14] LABS: Troponin(5th) Baseline 33 ng/mL (0-10)
[2019-11-09 18:23] LABS: Alanine Aminotransferase 19 U/L (0-33); Alkaline Phosphatase 91 IU/L (35-105); Anion Gap 14.3 (5-19); Aspartate Amino Transferase 13 U/L (0-32); Blood Urea Nitrogen 21 mg/dL (6-20); Calcium 9.2 mg/dL (8.5-10.5); Carbon Dioxide 33 mmol/L (22-29); Chloride 99 mmol/L (98-107); Creatinine Clr Calc Pharmacy 70.5981; Globulin 2.5 g/dL (1.3-4.6); Glomerular Filtration Rate 31.3 mL/min (90-130); Glucose 139 mg/dL (65-115); NT Pro B Type Natriuretic Pept 967 pg/mL (0-125); Osmolality Calculated 293 mOsm/kg (285-295); Potassium 4.3 mmol/L (3.5-5.1); Sodium 142 mmol/L (136-145); Total Protein 6.5 g/dL (6.6-8.7)
--- NOTE | 2019-11-09 18:48 | ECG_ITS ---
Measurements Intervals [place] Rate: 119 P: [place]: 0 QRS: 44 QRSD: 68 T: 32 QT: 317 QTc: 447 ATRIAL FIBRILLATION WITH RAPID VENTRICULAR RESPONSE LOW QRS VOLTAGE IN PRECORDIAL LEADS [QRS DEFLECTION < 1.0 mV IN CHEST LEADS] POSSIBLE ANTERIOR MYOCARDIAL INFARCTION , PROBABLY OLD [30 ms Q WAVE IN V3/V4, OR R < 0.2 mV IN V4] Compared to ECG 08/07/2019 00:11:23 Low QRS voltage now present Myocardial infarct finding now present Atrial abnormality no longer present ST (T wave) deviation no longer present Electronically Signed On 11-10-2019 15:58:22 CDT by Renee Gutierrez M.D. [id number]
--- NOTE | 2019-11-09 19:27 | PC.NURSE ---
EKG done at 1920 and shown to ER doctor
[2019-11-09 19:28] LABS: Troponin 5 2HR 35.66 ng/mL (0-10); Troponin 5 2HR Delta 2.66 ABS# (0-10)
[2019-11-09] MEDS: esmolol drip 2,500 MG/250 ML PREMIX 57.8 MG IV (19:39)
--- NOTE | 2019-11-09 19:45 | PM.HP ---
Providers/Chief Complaint Primary Care Provider: Mervat Nguyen Chief Complaint: SOB, L SIDE DENTAL PAIN History of Present Illness Ana Lilai Miller is a 54 year old female who has multiple comorbidities, multiple admissions due to symptomatic A. fib RVR, chronic anticoagulation with Eliquis on hold due to vaginal bleed, oxygen dependent COPD uses 3 L, noncompliant with her CPAP for sleep apnea came in today with chief complaint of shortness of breath. Patient is stating that she was in her usual state of health until 5 days ago she started experiencing orthopnea, PND, shortness of breath at rest and on exertion. She noticed that she is feeling more bloated, she did not experience any chest pain, palpitations, nausea, vomiting, headache, blurry vision, numbness tingling of extremities, fever, cough. She is a non-smoker, she is using 3 L of oxygen [id number]. She has tried to increase her Lasix dose from 40 mg to 80 mg but it has not helped her symptoms. She decided to come to the ED for further evaluation. Of note, chamber magistrate Dr. Gutierrez has discontinued Eliquis about a month ago because of her vaginal bleeding, she has not seen a quality cloth tester because of limited outpatient visits during this pandemic. Patient uses electric scooter at home for ambulation, she is leading a sedentary lifestyle, her is also wheelchair-bound. Diagnostics in ER revealed A. fib RVR heart rate 125, diastolic congestive heart failure exacerbation, high BNP, patient was saturating well on 4 L nasal cannula when I examined her, she was not complaining of any chest pain or shortness of breath at that point, Chest x-ray is consistent with congestion and bilateral pleural effusion Review of Systems Const: Reports: change in appetite, fatigue and change in sleep pattern; Denies: fever, chills or body aches Eyes: Denies: change in vision ENMT: Denies: throat pain Card: Denies: chest pain Resp: Reports: shortness of breath and chest congestion; Denies: productive cough or non-productive cough GI: Denies: abdominal pain or nausea : Denies: flank pain Musc: Denies: neck pain Skin/Breast: Denies: rash Neuro: Denies: headache Psych: Reports: anxiety and depression Endo: Denies: excessive urination Leonid/Lymph: Denies: easy bruising All/Imm: Denies: hives Medications/Allergies Home Medications Medication Instructions Recorded Confirmed Last Taken Type furosemide 40 mg PO DAILY #15 tab 07/25/19 11/09/19 11/08/19 Rx glipizide 2.5 mg PO DAILY 07/25/19 11/09/19 11/08/19 History nystatin-triamcinolone 1 applic TOPICAL BID #30 gm 07/25/19 11/09/19 08/06/19 08:00 Rx diclofenac sodium 4 g TOPICAL QID PRN 08/07/19 11/09/19 11/08/19 History isosorbide mononitrate 30 mg PO DAILY #30 tab 08/09/19 11/09/19 11/08/19 Rx metoprolol tartrate 50 mg PO BID #60 tab 08/09/19 11/09/19 11/08/19 Rx sumatriptan succinate [Imitrex] 25 mg PO Q6H PRN #0 tab 08/09/19 11/09/19 07/24/19 10:00 Rx bupropion HCl 200 mg tablet,12 hr 200 mg PO .morning #30 tab 10/03/19 11/09/19 11/08/19 Rx sustained-release sertraline 100 mg tablet 100 mg PO .morning #30 tab 10/03/19 11/09/19 11/08/19 Rx gabapentin 300 mg capsule 300 mg PO TID 10/05/19 11/09/19 11/08/19 History aripiprazole [Abilify] 5 mg PO DAILY 11/09/19 11/09/19 11/08/19 History hydroxyzine pamoate 25 mg PO TID PRN 11/09/19 11/09/19 Unknown History ondansetron HCl [Zofran] 4 mg PO Q6H PRN 11/09/19 11/09/19 Unknown History Allergies Allergy/AdvReac Type Severity Reaction Status Date / Time Tetracyclines Allergy Severe ALGY-Anaphy Verified 07/19/19 22:35 laxis wool Allergy Intermediate ALGY-Hives Verified 07/19/19 22:35 adhesive AdvReac Unknown Verified 07/19/19 22:35 Artificial Sweetners AdvReac Intermediate ADR-Headach Uncoded 07/20/19 04:24 e PFSH Acute PFSH: Medical History Atrial fibrillation Chronic anticoagulation On hold due to vaginal bleeding Chronic kidney disease, stage III (moderate) Cr has ranged 1.6-2.1 since 11/27 Congestive heart failure COPD (chronic obstructive pulmonary disease) Diabetes mellitus type 2, noninsulin dependent last A1c in 03/30 was 7.4 Hypertension Hypothyroidism last TSH in 03/30 was 6.18 Morbid obesity with BMI of 60.0-69.9, adult DELMIS (obstructive sleep apnea) Reports not currently compliant with therapy due to contaminated machine Oxygen dependent Vaginal bleeding Surgical History History of dental surgery Status post biopsy of skin Family History Other Chronic kidney disease (CKD) Diabetes Hypertension Thyroid disease Social History (Updated 11/09/19 @ 20:52 by Joaquín Chang MD) Smoking and tobacco status: never smoked Alcohol intake: never Substance/Drug Use: never Vitals/I&O/Wt Last Vital Signs Temp 98.6 F 11/09/19 17:09 Pulse 120 H 11/09/19 19:34 Resp 16 11/09/19 19:34 BP 144/112 11/09/19 19:34 Pulse Ox 96 11/09/19 19:34 Weight last 48 hrs Weight 192.777 kg Physical Exam Narrative: EXAM NARRATIVE: Morbid obese female currently saturating well on 4 L nasal cannula Supple neck No active chest pain S1, S2, hard to assess her JVD, nonpitting bilateral lower extremity edema Decreased breath sounds bilaterally with very mild rhonchi at the bases no active wheezing or crackles Abdomen is soft, distended, visceral obesity, bowel sound present Alert oriented x3 GCS 15 Appropriate mood and affect EOMI, PERRLA No sign of ischemia gangrene or ulcer of lower extremities, Skin does not show any ulcer Data : 11/09/19 17:35 11/09/19 17:35 A&P Assessment and plan (1) Congestive heart failure: Status: Acute Qualifiers: Heart failure type: systolic Heart failure chronicity: acute on chronic Qualified Code(s): I50.23 - Acute on chronic systolic (congestive) heart failure (2) Atrial fibrillation with RVR: Status: Acute (3) Shortness of breath: Status: Acute (4) Morbid obesity with BMI of 60.0-69.9, adult: Status: Acute Additional A&P Information Symptomatic A. fib RVR A. fib RVR currently patient is on esmolol, systolic blood pressure ranging between 1 14-1 20, Her chronic anticoagulation Eliquis was held because of vaginal bleeding, for last 4 weeks she has not noticed any vaginal bleeding or spotting, her Gerardo Vasc 5, hasBled score is 2, considering the globin at baseline I would go ahead and start Eliquis at this point Diastolic congestive heart failure exacerbation due to noncompliance with CPAP and A. fib RVR Tachyarrhythmia and sleep apnea is contributing towards her symptoms Would use Bumex 2 mg p.o. daily, I would avoid using higher strength than this to avoid hypotension as she is on esmolol drip at this point and systolic blood pressure is 140 mmHg Previous echo was not very helpful because of her body habitus, I am not sure if there is pulmonary hypertension component contributing to her symptoms as well I am hopeful Bumex will be helpful in relieving her symptoms at this point as Lasix absorption decreases with abdominal wall bloating in chf Obstructive sleep apnea: To decrease her work of breathing I would use BiPAP at this point COPD without acute exacerbation: Currently on 4 L nasal cannula Type 2 diabetes: Sliding scale, consistent carbohydrate diet Full code DVT prophylaxis: Currently patient will be on Eliquis Attestations Medical Necessity Statement*: Anticipating discharge in less than 48 hours, currently needs higher dose of diuretics and IV esmolol for rate control, for esmolol titration would need ICU overnight, esmolol titration will be difficult on medical floor Time Spent in Patient Care: 40 Coding Level of Care Code Acute Regional Service Manager for Chg Fwd Diagnoses Congestive heart failure I50.23 Heart failure type: systolic Heart failure chronicity: acute on chronic Atrial fibrillation with RVR I48.91 Shortness of breath R06.02 Morbid obesity with BMI of 60.0-69.9, adult E66.01; Z68.44
[2019-11-09 22:33] LABS: Glucose Point of Care 179 mg/dL (70-110)
[2019-11-09] MEDS: gabapentin 100 mg Capsule PO (22:35)
[2019-11-09] MEDS: sertraline 100 mg Tablet PO (22:35)
--- NOTE | 2019-11-09 22:48 | ECG_ITS ---
Measurements Intervals [place] Rate: 118 P: [place]: 0 QRS: 67 QRSD: 87 T: 11 QT: 313 QTc: 440 ATRIAL FIBRILLATION WITH RAPID VENTRICULAR RESPONSE LOW QRS VOLTAGE [QRS DEFLECTION < 0.5/1.0 mV IN LIMB/CHEST LEADS] PATTERN CONSISTENT WITH PULMONARY DISEASE Compared to ECG 08/07/2019 00:11:23 Low QRS voltage now present Atrial abnormality no longer present ST (T wave) deviation no longer present Electronically Signed On 11-10-2019 15:59:16 CDT by Renee Gutierrez M.D. [id number]
[2019-11-09 22:57] LABS: Troponin 5 6HR 42.86 ng/mL (0-10); Troponin 5 6HR Delta 9.86 ng/L (0-12)
[2019-11-09 23:04] LABS: Thyroid Stimulating Hormone 4.51 uIU/mL (0.27-4.20)
[2019-11-09] MEDS: esmolol drip 2,500 MG/250 ML PREMIX 115.7 MG IV (23:10)
[2019-11-10] VITALS (24 sets, daily range): BP systolic 69–165; BP diastolic 45–120; PULSE 84–132; RESP 8–26; TEMP 36.8–37.6; O2SAT 89–100
[2019-11-10 00:13] LABS: Glucose Point of Care 212 mg/dL (70-110)
--- NOTE | 2019-11-10 00:20 | PC.NURSE ---
PT GOT UP TO BSC, BECAME VERY PALE, DIZZY, AND HYPOTENSIVE. PT IS NOW BACK IN BED, BIPAP IS ON. BLOOD PRESSURE IS 90/56. HEART RATE IS NOW HITTING BELOW 100S AT TIMES. DR BROOKS WAS NOTIFIED.
--- NOTE | 2019-11-10 01:09 | PC.NURSE ---
DR NOTIFICATION Dr Chang was called due to pt hypotensive. Dr gave order to place catheter for the night and reassess in the am. Dr stated if heartrate sustains 120s to call and he will start amio drip. Esmolol is currently off due to hypotension.
[2019-11-10 05:02] LABS: Basophils % 0.3 %; Eosinophils # 0.3 10^3/uL (0.0-0.8); Eosinophils % 2.6 %; Hematocrit 33.7 % (37.0-47.0); Hemoglobin 9.2 g/dL (11.5-15.3); Lymphocytes # 0.9 10^3/uL (0.8-4.8); Lymphocytes % 7.8 %; Mean Corpuscular HGB Conc 27.3 g/dL (30.0-36.0); Mean Corpuscular Hemoglobin 23.5 pg (28.0-34.0); Mean Corpuscular Volume 86.2 fL (81-99); Mean Platelet Volume 11.2 fL (7.4-10.4); Monocytes # 0.5 10^3/uL (0.2-0.9); Monocytes % 4.6 %; Neutrophils # 9.3 10^3/uL (1.8-7.7); Neutrophils % 84.2 %; Nucleated Red Blood Cells % 0 %; Platelet Count 288 10^3/cmm (130-400); Red Blood Count 3.91 10^6/uL (4.1-5.3); Red Cell Distribution Width 18.8 % (12.1-15.1)
[2019-11-10 05:17] LABS: Anion Gap 15.4 (5-19); Blood Urea Nitrogen 25 mg/dL (6-20); Calcium 9.4 mg/dL (8.5-10.5); Carbon Dioxide 32 mmol/L (22-29); Chloride 96 mmol/L (98-107); Glomerular Filtration Rate 27.5 mL/min (90-130); Glucose 174 mg/dL (65-115); Osmolality Calculated 289 mOsm/kg (285-295); Potassium 4.4 mmol/L (3.5-5.1); Sodium 139 mmol/L (136-145)
[2019-11-10] MEDS: buPROPion SR (12 HR) 100 mg Tablet 200 MG PO (05:34)
[2019-11-10] MEDS: sertraline 100 mg Tablet PO (05:34)
[2019-11-10] MEDS: dilTIAZem 30 mg Tablet PO ×4 (05:52→22:24)
--- NOTE | 2019-11-10 05:59 | PC.NURSE ---
dr notification Dr hCang notified of pt heart rate hitting [address] put in orders for po Cardizem and he stated to remove henley.
--- NOTE | 2019-11-10 06:32 | PC.NURSE ---
SHIFT SUMMARY Pt has been alert and orientated. Pt heart rate has been from 90s-140s at times, Dr aware. No iv drips currently running. Pt has had adequate urine output. pt iv remains patent.
[2019-11-10 07:54] LABS: Glucose Point of Care 153 mg/dL (70-110)
[2019-11-10] MEDS: apixaban 5 mg Tablet PO ×2 (08:30→17:57)
[2019-11-10] MEDS: bumetanide 1 mg Tablet 2 MG PO (08:30)
[2019-11-10] MEDS: gabapentin 100 mg Capsule PO (08:30)
[2019-11-10] MEDS: ARIPiprazole 10 mg Tablet 5 MG PO (08:30)
--- NOTE | 2019-11-10 09:40 | P.PN_ITS ---
Subjective Subjective: Interval history: Did last night. Labs and H&P noted. Overnight esmolol drip was discontinued because of hypotension. This morning on evaluation patient is sitting comfortably in bed fluctuating between 100-115 bpm with blood pressure maintaining over 65 mmHg of mean arter ial pressure. Patient states she is feeling a lot better. Denies of having any current nausea, vomiting, headache, palpitations. Patient states she is been having difficulty at home using her CPAP machine. Vitals/I&O/Wt Last Vital Signs Temp 98.6 F 11/10/19 06:00 Pulse 117 H 11/10/19 06:22 Resp 21 H 11/10/19 06:00 BP 120/86 11/10/19 06:00 Pulse Ox 99 11/10/19 06:22 11/09/19 11/10/19 11/10/19 22:59 06:59 14:59 Intake Total 256.793 / 256.793 217.405 / 474.198 Output Total 700 / 700 Balance 256.793 / 256.793 -482.595 / -225.802 Weight last 48 hrs Weight 192.777 kg Physical Exam Narrative: EXAM NARRATIVE: General: No acute distress, AO x3 morbidly obese HEENT: PERRLA, pupils bilaterally equal and reactive Chest: Normal vesicular breath sounds, no added sounds, equal good air entry bilaterally CVS: S1-S2 irregularly irregular, tachycardia, soft pansystolic murmur at apex, no gallops, no rubs Abdomen: Soft, nontender, no organomegaly, bowel sounds present Neuro: No focal deficits, no facial deformity, AO x3, power 5/5 in all limbs Urinary Catheter Management^: Casiano: Cath Placed During This Visit: yes, but has since been removed by the nurse Reason for Continuing Indwelling Catheter: Other Urinary Catheter Date of Insertion: 11/10/19 Urinary Catheter Time of Insertion: 00:51 Date Urinary Catheter Removed: 11/10/19 Time Urinary Catheter Discontinued: 06:39 Data : 11/10/19 04:36 11/10/19 04:36 A&P Assessment and plan (1) Atrial fibrillation with RVR: Status: Acute (2) Shortness of breath: Status: Acute (3) Congestive heart failure: Status: Acute Qualifiers: Heart failure chronicity: acute on chronic Heart failure type: systolic Qualified Code(s): I50.23 - Acute on chronic systolic (congestive) heart failure (4) Morbid obesity with BMI of 60.0-69.9, adult: Status: Acute Additional A&P Information A. fib with RVR: Gerardo vas score?5, has bled score?2. Esmolol drip stop overnight. At home patient is on metoprolol 50 mg twice daily. Patient started on Cardizem 30 mg every 6 hourly, will start patient on metoprolol 25 mg twice daily for now. Monitor heart rate. Patient was restarted on anticoagulation with Eliquis overnight. We will continue Eliquis for now. Have discussed in detail with patient regarding danger signs of vaginal bleed. Blood pressure is borderline for now. We will hold off on Imdur for now. Once improves will restart as would help with reducing LA pressures. Low TSH. Check free T3 and T4. Shortness of breath: Mild acute exacerbation of diastolic heart failure, obstructive sleep apnea. Diastolic heart failure getting exacerbated in view of A. fib with RVR. Echocardiogram done last 2 occasions in the last 4 to 5 months always comes out to be suboptimal windows. At home patient takes Lasix 40 mg daily. For now will increase to 40 mg p.o. twice daily. Daily weights, Strict input output charting. CKD: Creatinine is at baseline. Her baseline creatinine seems to be around 2?2 0.3. Medical reconciliation done for nephrotoxic drugs. Check BMP daily. Obstructive sleep apnea: Noncompliant to CPAP as an outpatient. We will discuss with care coordination/respiratory therapy to see if AutoPap can be used to determine how much pressure patient needs overnight. COPD without acute exacerbation: Currently on 4 L nasal cannula Duoneb Q6h, hold off on steroids for now. Type 2 diabetes: Sliding scale, consistent carbohydrate diet Full code DVT prophylaxis: Currently patient will be on Eliquis Can transfer over to cardiac stepdown unit. Attestations Medical Necessity Statement*: A. fib with RVR diastolic heart failure Time Spent in Patient Care: Greater than 35 minutes Coding Level of Care Code Acute Creasing And Cutting Press Feeder for Chg Fwd Diagnoses Atrial fibrillation with RVR I48.91 Shortness of breath R06.02 Congestive heart failure I50.23 Heart failure chronicity: acute on chronic Heart failure type: systolic Morbid obesity with BMI of 60.0-69.9, adult E66.01; Z68.44
[2019-11-10 11:46] LABS: Glucose Point of Care 134 mg/dL (70-110)
[2019-11-10] MEDS: metoprolol tartrate 25 mg Tablet PO ×2 (11:48→17:57)
[2019-11-10 12:08] LABS: Free T4 Free Thyroxine 1.11 ng/dL (0.82-1.77); T3 Free 2.9 PG/ML (2.0-4.4)
[2019-11-10] MEDS: ipratropium-albuterol 3 mL Neb INHALATION ×2 (14:01→21:03)
[2019-11-10] MEDS: gabapentin 100 mg Capsule 200 MG PO ×2 (14:54→21:17)
[2019-11-10] MEDS: FUROsemide 40 mg Tablet PO (16:32)
[2019-11-10 17:16] LABS: Glucose Point of Care 165 mg/dL (70-110)
--- NOTE | 2019-11-10 17:33 | PC.NURSE ---
11/10/2019 1615 - PT TRANSFERRED TO ROOM 260; PT VERY SHORT OF BREATH UPON EXERTION; HEART RATE MORE CONSISTENT BETWEEN 80-90'S AFTER RECEIVING CARDIZEM AND METOPROLOL; PT COMPLETED LUNG SCAN; APPETITE APPROPRIATE; PT WILL ONLY DRINK SODA; ALL OF PATIENT'S BELONGINGS PACKED UP AND TAKEN WITH PT TO ROOM 260
[2019-11-10 21:16] LABS: Glucose Point of Care 162 mg/dL (70-110)
--- NOTE | 2019-11-10 22:07 | NM_ITS ---
WS: [id number] NUCLEAR MEDICINE VENTILATION/PERFUSION LUNG SCAN HISTORY: PE COMPARISON: Chest radiograph 10/13/2019 TECHNIQUE: Ventilation: 32.7 mCi of Technetium 99 DTPA aerosol inhaled. Perfusion: 5.4 mCi of technetium 99m MAA IV. Significant deposition of radionuclide at the RIGHT hilum. There is poor ventilation bilaterally. Muc h better perfusion. Matched defects in the LEFT no focal unmatched defects. Upper lobe and at the LEFT lung base. NM/NM pul vent and perfus* [id number] IMPRESSION: 1. Much improved perfusion as compared to ventilation. 2. Indeterminate probability for pulmonary embolism based on the airspace dise ase in the LEFT lower lobe and the matched defects.
[2019-11-11] VITALS (10 sets, daily range): BP systolic 107–133; BP diastolic 61–87; PULSE 80–97; RESP 16–20; TEMP 36.7–37; O2SAT 87–98
[2019-11-11 03:07] LABS: Iron 25 ug/dL (37-145); Percent Saturation 6.7 % (20-50); Total Iron Binding Capacity 369 mcg/dl; Unsaturated Iron Binding 344 ug/dL (112-347)
[2019-11-11] MEDS: ipratropium-albuterol 3 mL Neb INHALATION ×2 (03:50→09:27)
[2019-11-11] MEDS: sertraline 100 mg Tablet PO (05:00)
[2019-11-11] MEDS: buPROPion SR (12 HR) 100 mg Tablet 200 MG PO (05:00)
[2019-11-11] MEDS: dilTIAZem 30 mg Tablet PO ×3 (05:00→17:19)
[2019-11-11 06:21] LABS: Basophils % 0.4 %; Eosinophils # 0.3 10^3/uL (0.0-0.8); Eosinophils % 2.9 %; Hematocrit 33.5 % (37.0-47.0); Lymphocytes # 1.3 10^3/uL (0.8-4.8); Lymphocytes % 13.7 %; Mean Corpuscular HGB Conc 26.9 g/dL (30.0-36.0); Mean Corpuscular Hemoglobin 23.5 pg (28.0-34.0); Mean Corpuscular Volume 87.5 fL (81-99); Monocytes # 0.6 10^3/uL (0.2-0.9); Monocytes % 6.1 %; Neutrophils % 76.5 %; Nucleated Red Blood Cells % 0 %; Platelet Count 264 10^3/cmm (130-400); Red Blood Count 3.83 10^6/uL (4.1-5.3); Red Cell Distribution Width 18.7 % (12.1-15.1); White Blood Count 9.2 10^3/uL (4.0-10.0)
[2019-11-11 06:37] LABS: Glucose Point of Care 151 mg/dL (70-110)
[2019-11-11 06:41] LABS: Alanine Aminotransferase 13 U/L (0-33); Albumin Level 3.5 g/dL (3.5-5.2); Alkaline Phosphatase 72 IU/L (35-105); Aspartate Amino Transferase 10 U/L (0-32); Blood Urea Nitrogen 30 mg/dL (6-20); Calcium 8.8 mg/dL (8.5-10.5); Carbon Dioxide 32 mmol/L (22-29); Chloride 95 mmol/L (98-107); Globulin 3.2 g/dL (1.3-4.6); Glucose 150 mg/dL (65-115); Osmolality Calculated 288 mOsm/kg (285-295); Sodium 139 mmol/L (136-145); Total Protein 6.7 g/dL (6.6-8.7)
[2019-11-11] MEDS: gabapentin 100 mg Capsule 200 MG PO ×2 (08:29→15:51)
[2019-11-11] MEDS: metoprolol tartrate 25 mg Tablet PO ×2 (08:29→17:19)
[2019-11-11] MEDS: isosorbide mononitrate ER 30 mg Tablet PO (08:29)
[2019-11-11] MEDS: apixaban 5 mg Tablet PO ×2 (08:29→17:19)
[2019-11-11] MEDS: FUROsemide 40 mg Tablet PO ×2 (08:29→15:53)
[2019-11-11] MEDS: ARIPiprazole 10 mg Tablet 5 MG PO (08:30)
[2019-11-11] MEDS: hyDROXYzine 25 mg Capsule PO (10:04)
[2019-11-11 11:30] LABS: Glucose Point of Care 191 mg/dL (70-110)
--- NOTE | 2019-11-11 12:48 | P.DS_ITS ---
Discharge Providers Date of Admission: 11/10/19 09:48 Date of Discharge: November 11, 2019 Attending Provider at Admission: Joaquín Chang MD Attending Provider at Discharge: Neal Power MD Primary Care Provider: Mervat Nguyen Diagnoses at Discharge Discharge Diagnosis (1) Atrial fibrillation with RVR: Status: Acute (2) Shortness of breath: Status: Acute (3) Congestive heart failure: Status: Acute Qualifiers: Heart failure chronicity: acute on chronic Heart failure type: systolic Qualified Code(s): I50.23 - Acute on chronic systolic (congestive) heart failure (4) Morbid obesity with BMI of 60.0-69.9, adult: Status: Acute Reason for Visit Reason for Visit: Reason For Visit: SOB, L SIDE DENTAL PAIN Hospital Course Discharge Summary: With adjusted medication.Ana Lilia Miller is a 54 year old female who has multiple comorbidities, multiple admissions due to symptomatic A. fib RVR, chronic anticoagulation with Eliquis on hold due to vaginal bleed, oxygen dependent COPD uses 3 L, noncompliant with her CPAP for sleep apnea came in today with chief complaint of shortness of breath. Patient is stating that she was in her usual state of health until 5 days ago she started experiencing orthopnea, PND, shortness of breath at rest and on exertion. She noticed that she is feeling more bloated, she did not experience any chest pain, palpitations, nausea, vomiting, headache, blurry vision, numbness tingling of extremities, fever, cough. She is a non-smoker, she is using 3 L of oxygen [id number]. She has tried to increase her Lasix dose from 40 mg to 80 mg but it has not helped her symptoms. She decided to come to the ED for further evaluation. Of note, pcb design engineer Dr. Gutierrez has discontinued Eliquis about a month ago because of her vaginal bleeding, she has not seen a chief medical officer because of limited outpatient visits during this pandemic. Patient uses electric scooter at home for ambulation, she is leading a sedentary lifestyle, her is also wheelchair-bound. Diagnostics in ER revealed A. fib RVR heart rate 125, diastolic congestive heart failure exacerbation, high BNP, patient was saturating well on 4 L nasal cannula. Patient was admitted to the hospital for diastolic heart failure induced because of A. fib with RVR. She was briefly started on esmolol drip which caused her blood pressure to trend down so was transitioned over to oral Cardizem. Patient responded well to the treatment for A. fib with RVR with oral Cardizem and metoprolol. Her home dose of Lasix has also been increased to twice daily. As patient's Gerardo Vas score is high and is not having any more vaginal bleeding with stable hemoglobin so she was started back on Eliquis. Patient is back to her oxygen supplementation requirement to keep her saturation over 92%. She has been discharged in hemodynamically stable condition with adjusted medications. Physical Exam Narrative: EXAM NARRATIVE: General: No acute distress, AO x3 morbidly obese HEENT: PERRLA, pupils bilaterally equal and reactive Chest: Normal vesicular breath sounds, no added sounds, equal good air entry bilaterally CVS: S1-S2 irregularly irregular, tachycardia, soft pansystolic murmur at apex, no gallops, no rubs Abdomen: Soft, nontender, no organomegaly, bowel sounds present Neuro: No focal deficits, no facial deformity, AO x3, power 5/5 in all limbs Urinary Catheter Management^: Casiano: Cath Placed During This Visit: yes, but has since been removed by the nurse Reason for Continuing Indwelling Catheter: Other Urinary Catheter Date of Insertion: 11/10/19 Urinary Catheter Time of Insertion: 00:51 Date Urinary Catheter Removed: 11/10/19 Time Urinary Catheter Discontinued: 06:39 Discharge Data Data Completed and Pending: Completed Studies During Hospitalization Category Date Time Status XR chest 1V shania ble [id number] Urgent Exams 11/09/19 16:48 Completed NM pul vent and p erfus* [id number] Routi ne Nuc Med 11/10/19 22:07 Completed Labs from last 24 hours 11/11/19 11/11/19 11/11/19 10:47 06:30 05:51 WBC RBC Hgb Hct MCV MCH MCHC RDW Plt Count MPV Neut % (Auto) Lymph % (Auto) [place] % (Auto) Eos % (Auto) Baso % (Auto) Neut # (Auto) Lymph # (Auto) [place] # (Auto) Eos # (Auto) Baso # (Auto) Nucleated RBC % (a uto) Nucleated RBCs # Sodium 139 Potassium 4.0 Chloride 95 L Carbon Dioxide 32 H Anion Gap 16.0 BUN 30 H Creatinine 2.0 H GFR Calculation 26.0 L Glucose 150 H POC Glucose 191 151 Calculated Osmolal ity 288 Calcium 8.8 Iron TIBC % Saturation Unsat Iron Binding Total Bilirubin 1.0 AST 10 ALT 13 Alkaline Phosphata se 72 Total Protein 6.7 Albumin 3.5 Globulin 3.2 11/11/19 11/10/19 11/10/19 05:51 21:13 17:11 WBC 9.2 RBC 3.83 L Hgb 9.0 L Hct 33.5 L MCV 87.5 MCH 23.5 L MCHC 26.9 L RDW 18.7 H Plt Count 264 MPV 11.0 H Neut % (Auto) 76.5 Lymph % (Auto) 13.7 [place] % (Auto) 6.1 Eos % (Auto) 2.9 Baso % (Auto) 0.4 Neut # (Auto) 7.0 Lymph # (Auto) 1.3 [place] # (Auto) 0.6 Eos # (Auto) 0.3 Baso # (Auto) 0.0 Nucleated RBC % (a uto) 0 Nucleated RBCs # 0.0 Sodium Potassium Chloride Carbon Dioxide Anion Gap BUN Creatinine GFR Calculation Glucose POC Glucose 162 165 Calculated Osmolal ity Calcium Iron TIBC % Saturation Unsat Iron Binding Total Bilirubin AST ALT Alkaline Phosphata se Total Protein Albumin Globulin 11/10/19 04:36 WBC RBC Hgb Hct MCV MCH MCHC RDW Plt Count MPV Neut % (Auto) Lymph % (Auto) [place] % (Auto) Eos % (Auto) Baso % (Auto) Neut # (Auto) Lymph # (Auto) [place] # (Auto) Eos # (Auto) Baso # (Auto) Nucleated RBC % (a uto) Nucleated RBCs # Sodium Potassium Chloride Carbon Dioxide Anion Gap BUN Creatinine GFR Calculation Glucose POC Glucose Calculated Osmolal ity Calcium Iron 25 L TIBC 369 % Saturation 6.7 L Unsat Iron Binding 344 Total Bilirubin AST ALT Alkaline Phosphata se Total Protein Albumin Globulin Vitals: Last Vital Signs Temp 98.4 F 11/11/19 11:57 Pulse 82 11/11/19 11:57 Resp 19 H 11/11/19 11:57 BP 109/65 11/11/19 11:57 Pulse Ox 98 11/11/19 11:57 Discharge Plan Discharge Patient Disposition: Home, Self-Care Condition: Stable Prescriptions: New Eliquis 5 mg Tablet 5 mg PO BID Qty: 30 RF: 0 metoprolol tartrate 25 mg Tablet 25 mg PO BID Qty: 30 RF: 0 diltiazem HCl [Cartia XT] 120 mg capsule,extended release 24hr 120 mg PO DAILY Qty: 30 RF: 0 Continued gabapentin 300 mg capsule 300 mg PO TID RF: 0 Wellbutrin SR 200 mg tablet sustained-release 12 hr 200 mg PO .morning Qty: 30 RF: 3 sertraline [Zoloft] 100 mg tablet 100 mg PO .morning Qty: 30 RF: 4 nystatin-triamcinolone 100,000-0.1 unit/g-% cream 1 applic TOPICAL BID Qty: 30 RF: 0 glipizide 2.5 mg Tablet Extended Release 24hr 2.5 mg PO DAILY RF: 0 diclofenac sodium 1 % Gel 4 g TOPICAL QID PRN (Reason: Pain) RF: 0 isosorbide mononitrate 30 mg Tablet Extended Release 24 Hr 30 mg PO DAILY Qty: 30 RF: 0 sumatriptan succinate [Imitrex] 25 mg Tablet 25 mg PO Q6H PRN (Reason: Migraine Headache) Qty: 0 RF: 0 Zofran 4 mg Tablet 4 mg PO Q6H PRN (Reason: NAUSEA/VOMITING) RF: 0 hydroxyzine pamoate 25 mg capsule 25 mg PO TID PRN (Reason: Anxiety) RF: 0 Abilify 5 mg Tablet 5 mg PO DAILY RF: 0 Changed furosemide 40 mg Tablet 40 mg PO BIDWM Qty: 60 RF: 1 Discontinued metoprolol tartrate 50 mg Tablet 50 mg PO BID Qty: 60 RF: 0 Discharge Orders: Discharge Order (Routine); Ordered 11/11/19 Ordered By: Neal Power Referrals: Mervat Nguyen [Primary Care Provider] - 2 weeks Discharge Diet: Cardiac Discharge Activity: Resume usual activity Discharge Attestations Time Spent in Discharge Care*: greater than 30 min Specific Discharge Activities: Specific discharge activities: educating patient, discussing with pcp/other providers, discussing with therapeutic case manager/soci al workers/dc planners, documenting/other paperwork and evaluating patient/reviewing data Status at Discharge: Cognitive status at discharge: cognitively intact , Behavioral status at discharge: cooperative , Functional status at discharge: other assisted ambulation Overall status at discharge: patient is back to baseline Quality Metrics Clinical Quality Measures During this hospital stay, did patient experience: None Coding Level of Care Code Acute Table Cut Off Saw Operator for g Fwd Diagnoses Atrial fibrillation with RVR I48.91 Shortness of breath R06.02 Congestive heart failure I50.23 Heart failure chronicity: acute on chronic Heart failure type: systolic Morbid obesity with BMI of 60.0-69.9, adult E66.01; Z68.44
--- NOTE | 2019-11-11 12:52 | PC.CHAP ---
Pastoral Care Encounter/Spiritual Assessment Type of Contact [] Declined retail manager in training visit [] Patient/Family/Request visit [] Outpatient visit [] Follow-up visit [] Physician referral [] Code/Alert [] Routine visit [] Staff referral [] Actively dying [X] Patient sleeping [] Family support [] [] Out of room [] Palliative care [] [] Receiving care in room [] Pre-surgical visit [] Trauma [] Long length of stay [] ICU visit [] Other: Relational/Emotional Strength [] Patient feels connected with others/family/visitors/staff [] Distress [] Loneliness/isolation [] Abandonment Spirituality of Patient [] Person of [place] [] Attends Uatsdin of their [place] [] Believes in Prayer [] Reads Bible or Uatsdin materials [] There are Spiritual issues to be addressed Front Desk Agent Interventions [] Prayer [] Active listening [] Non-anxious presence [] Spiritual/emotional support [] Crisis/trauma care [] Spiritual counseling [] Bereavement support [] Provided bereavement packet [] Provided Bible/devotional materials [] Provided toy/stuffed animal, coloring book to patient or family member [] Provided Communion [] Anointing/[place] [] Salvation [] Completed spiritual assessment [] Other: Impact on Illness or Injury [] Angry [] Fearful [] Anxious [] Often cries [] Exhaustion [] Unable to work [] Unable to attend yazidism [] Unable to walk/stand [] Unable to read [] Unable to drive [] Unable to eat/drink [] Unable to sleep [] Unable to be with family [] Patient intubated [] Other: Summary PATIENT SLEEPING, FOLLOW UP NEXT SHIFT Time spent with patient
[2019-11-11 16:36] LABS: Glucose Point of Care 153 mg/dL (70-110)
== END 2019-11-11 17:47 | disposition home or self-care (01) | DRG 291 ==
LOC: ER 19:15 → ICU 11-10 08:01 → MEDSURG 11-10 17:01
PROVIDERS: Emergency Medicine; Admitting Provider Internal Medicine; Emergency Provider Emergency Medicine; Family Provider Internal Medicine; PCP Internal Medicine; Visit Provider Student in an Organized Health Care Education/Training Program
DX: I13.0 Hypertensive heart and chronic kidney disease with heart failure and stage 1 through stage 4 chronic kidney disease, or unspecified chronic kidney disease (principal); I50.23 Acute on chronic systolic (congestive) heart failure; Z68.44 Body mass index [BMI] 60.0-69.9, adult; N18.3 Chronic kidney disease, stage 3 (moderate); E11.22 Type 2 diabetes mellitus with diabetic chronic kidney disease; I48.91 Unspecified atrial fibrillation; Z79.01 Long term (current) use of anticoagulants; Z99.81 Dependence on supplemental oxygen; J44.9 Chronic obstructive pulmonary disease, unspecified; G47.33 Obstructive sleep apnea (adult) (pediatric); Z91.19 Patient's noncompliance with other medical treatment and regimen; E03.9 Hypothyroidism, unspecified; E66.01 Morbid (severe) obesity due to excess calories; Z79.84 Long term (current) use of oral hypoglycemic drugs
CPT/HCPCS: 12345; 36415; 36416; 51702; 71045; 78014; 80048; 80053; 82962; 83540; 83550; 83880; 84439; 84443; 84481; 84484; 85025; 85378; 93005; 94640; 94660; 96372; 96374; 96375; 99283; A9540; A9567; G0378; J1815; J1940; J3490

== ENCOUNTER 2019-12-03 01:30 | Emergency (ER) | payer MEDICARE, MEDICAID, SELFPAY ==
[2019-12-03] VITALS (35 sets, daily range): BP systolic 142–204; BP diastolic 88–135; PULSE 118; RESP 22; TEMP 37.3; O2SAT 89–99
--- NOTE | 2019-12-03 01:50 | ED_ITS ---
HPI - SOB/Dyspnea General: Chief Complaint: Shortness of Breath/Dyspnea Stated Complaint: SOB Time Seen by Provider: 12/03/19 01:38 History of Present Illness: HPI Narrative: 54-year-old lady with a history of chronic anemia and heart failure. She presents with shortness of breath. She normally wears 3 L of oxygen at home. EMS crew found her oxygen hose to be kinked. They gave her a new hose, with immediate improvement in her oxygenation. She still complains of shortness of breath, and mouth pain. MD elicited complaint: shortness of breath Pertinent past history: congestive heart failure Timing: constant Severity: moderate Exacerbating factors: lying flat and exertion Associated symptoms: Deny abdominal pain, chest pain, cough, dizziness, extremity pain, fever(s), nausea or vomiting Treatment prior to arrival: oxygen Review of Systems Const: Denies: fever(s) Eyes: Denies: change in vision or blurry vision ENMT: Denies: swelling of lips/tongue, epistaxis or sinus pain Card: Denies: chest pain Resp: Denies: dyspnea, productive cough, non-productive cough or wheezing GI: Denies: abdominal pain, nausea or vomiting : Denies: dysuria, urinary frequency or urinary urgency Musc: Denies: extremity pain Skin/Breast: Denies: rash, pruritus or erythema Neuro: Denies: headache(s), dizziness, vertigo, confusion or seizure-like activity Psych: Denies: anxiety PFS ED PFSH: Medical History (Updated 12/03/19 @ 05:06 by Bruno Henson DO) Atrial fibrillation Chronic anticoagulation On hold due to vaginal bleeding Chronic kidney disease, stage III (moderate) Cr has ranged 1.6-2.1 since 11/27 Congestive heart failure COPD (chronic obstructive pulmonary disease) Diabetes mellitus type 2, noninsulin dependent last A1c in 03/30 was 7.4 Hypertension Hypothyroidism last TSH in 03/30 was 6.18 Morbid obesity with BMI of 60.0-69.9, adult DELMIS (obstructive sleep apnea) Reports not currently compliant with therapy due to contaminated machine Oxygen dependent Vaginal bleeding Surgical History History of dental surgery Status post biopsy of skin Family History Other Chronic kidney disease (CKD) Diabetes Hypertension Thyroid disease Social History (Updated 11/09/19 @ 20:52 by Joaquín Chang MD) Smoking and tobacco status: never smoked Alcohol intake: never Physical Exam Const: GENERAL APPEARANCE: well developed ORIENTATION/CONSCIOUSNESS: Yes oriented to person, Yes oriented to place and Yes oriented to time HENMT: COMMON NORMALS: normocephalic, external ears normal and Normal external nose present HEAD & SCALP: normocephalic FACE & SINUS: normal facial exam NOSE: Normal external nose present and No nasal discharge present EXTERNAL EAR: Yes external ears normal MOUTH: tongue normal THROAT: posterior oropharynx normal; no peritonsillar mass Eye: COMMON NORMALS: Equal, round and reactive pupils present, EOMs intact bilaterally and conjunctivae normal EYELID: eyelids normal CONJUNCTIVA: Yes conjunctivae normal PUPIL: Yes Equal, round and reactive pupils present Neck/C-Spine: COMMON NORMALS: full ROM GENERAL: No tracheal deviation Chest: COMMONS NORMALS: normal inspection of the chest CHEST: No tenderness Resp: COMMON NORMALS: clear to auscultation bilaterally EFFORT & INSPECTION: Yes tachypneic, No retractions, No uses accessory muscles and No tracheal deviation AUSCULTATION: clear to auscultation bilaterally, no rhonchi, no wheezes and lung sounds not diminished Cardio: COMMON NORMALS: regular rate and regular rhythm RATE: regular rate RHYTHM: regular rhythm HEART SOUNDS: no murmurs PERIPHERAL PULSES: radial pulses present GI: INSPECTION: No abdominal distension AUSCULTATION: No Hyperactive bowel sounds present and No Hypoactive bowel sounds present PALPATION: No Guarding due to palpation present (GI) and No Rigid due to palpation PERCUSSION: no dullness to percussion and no tympanic to percussion Neuro: SENSORIUM/ORIENTATION: Yes oriented to person, Yes oriented to place and Yes oriented to time Psych: COMMON NORMALS: mental status grossly normal Skin: COMMON NORMALS: no rashes or lesions noted GENERAL SKIN EXAM: no rashes or lesions noted Course Vital Signs: Vital signs: Vital Signs Temperature 99.1 F 12/03/19 01:38 Pulse Rate 118 H 12/03/19 01:38 Respiratory Rate 22 H 12/03/19 01:38 Blood Pressure 180/110 12/03/19 05:45 Pulse Oximetry 93 05/24/20 05:45 MDM - SOB/Dyspnea MDM Narrative: Medical decision making narrative: Ms. Miller has maintained an oxygen level above 94% on her home O2 setting. She has been given an extra dose of Lasix with some output here. Her chest x-ray is stable from prior, showing some congestive heart failure. Her hemoglobin is stable at 9.4. Her other laboratory is benign. She does have some stomatitis/mucositis, we will give her a prescription for Magic mouthwash. We will increase her Lasix dosage for the next 3 days. He knows to return for worsening shortness of breath Lab Data: Labs: Lab Results 12/03/19 12/03/19 Range/Units 02:20 02:20 WBC 11.7 H (4.0-10.0) 10^3/ uL RBC 4.00 L (4.1-5.3) 10^6/u L Hgb 9.4 L (11.5-15.3) g/dL Hct 33.9 L (37.0-47.0) % MCV 84.8 (81-99) fL MCH 23.5 L (28.0-34.0) pg MCHC 27.7 L (30.0-36.0) g/dL RDW 18.3 H (12.1-15.1) % Plt Count 282 (130-400) 10^3/c mm MPV 10.5 H (7.4-10.4) fL Neut % (Auto) 83.9 % Lymph % (Auto) 8.6 % [place] % (Auto) 4.2 % Eos % (Auto) 2.5 % Baso % (Auto) 0.3 % Neut # (Auto) 9.8 H (1.8-7.7) 10^3/u L Lymph # (Auto) 1.0 (0.8-4.8) 10^3/u L [place] # (Auto) 0.5 (0.2-0.9) 10^3/u L Eos # (Auto) 0.3 (0.0-0.8) 10^3/u L Baso # (Auto) 0.0 (0.0-0.1) 10^3/u L Nucleated RBC % (a uto) 0 % Nucleated RBCs # 0.0 /100WBC Sodium 139 (136-145) mmol/L Potassium 4.0 (3.5-5.1) mmol/L Chloride 100 (98-107) mmol/L Carbon Dioxide 28 (22-29) mmol/L Anion Gap 15.0 (5-19) BUN 18 (6-20) mg/dL Creatinine 1.6 H (0.5-0.9) mg/dL GFR Calculation 33.6 L (90-130) mL/min Glucose 179 H (65-115) mg/dL Calculated Osmolal ity 289 (285-295) mOsm/k g Calcium 8.5 (8.5-10.5) mg/dL Total Bilirubin 1.1 (0.15-1.2) mg/dL AST 12 (0-32) U/L ALT 15 (0-33) U/L Alkaline Phosphata se 79 (35-105) IU/L NT-Pro-B Natriuret Pep 1213 H (0-125) pg/mL Total Protein 6.7 (6.6-8.7) g/dL Albumin 3.9 (3.5-5.2) g/dL Globulin 2.8 (1.3-4.6) g/dL Discharge Plan Discharge Clinical Impression: Stomatitis and mucositis Congestive heart failure Qualifiers: Heart failure type: unspecified Heart failure chronicity: acute Qualified Code(s): I50.9 - Heart failure, unspecified Condition: Stable Prescriptions: No Action gabapentin 300 mg capsule 300 mg PO TID RF: 0 Wellbutrin SR 200 mg tablet sustained-release 12 hr 200 mg PO .morning Qty: 30 RF: 3 sertraline [Zoloft] 100 mg tablet 100 mg PO .morning Qty: 30 RF: 4 nystatin-triamcinolone 100,000-0.1 unit/g-% cream 1 applic TOPICAL BID Qty: 30 RF: 0 glipizide 2.5 mg Tablet Extended Release 24hr 2.5 mg PO DAILY RF: 0 diclofenac sodium 1 % Gel 4 g TOPICAL QID PRN (Reason: Pain) RF: 0 isosorbide mononitrate 30 mg Tablet Extended Release 24 Hr 30 mg PO DAILY Qty: 30 RF: 0 sumatriptan succinate [Imitrex] 25 mg Tablet 25 mg PO Q6H PRN (Reason: Migraine Headache) Qty: 0 RF: 0 Zofran 4 mg Tablet 4 mg PO Q6H PRN (Reason: NAUSEA/VOMITING) RF: 0 hydroxyzine pamoate 25 mg capsule 25 mg PO TID PRN (Reason: Anxiety) RF: 0 Abilify 5 mg Tablet 5 mg PO DAILY RF: 0 metoprolol tartrate 25 mg Tablet 25 mg PO BID Qty: 30 RF: 0 Eliquis 5 mg Tablet 5 mg PO BID Qty: 30 RF: 0 Cartia XT 120 mg capsule,extended release 24hr 120 mg PO DAILY Qty: 30 RF: 0 furosemide 40 mg Tablet 40 mg PO BIDWM Qty: 60 RF: 1 Discharge Orders: Discharge Order (Routine); Ordered 12/03/19 Ordered By: Bruno Henson Referrals: Mervat Nguyen [Primary Care Provider] - 4-7 days Discharge Diet: Usual diet Discharge Activity: Increase activity as tolerated Patient Instructions: Congestive Heart Failure, Oral Mucositis (ED) Activity Restrictions/Additional Instructions: Return for temperature greater than 100, worsening shortness of breath despite treatment, chest discomfort, other concerning symptoms. Increase your Lasix (water pill) to 3 times daily for the next 3 days, then back to normal dose of twice daily. use the Magic mouthwash as directed. Discharge Date/Time: 12/03/19 13:29 Coding Level of Care Code ED Leveling Machine Operator for Tanner Chavez
--- NOTE | 2019-12-03 02:13 | XRR_ITS ---
PROCEDURE INFORMATION: Exam: XR Chest, 1 View Exam date and time: 12/03/2019 3:48 AM Age: 54 years old Clinical indication: Dyspnea; Additional info: SOB TECHNIQUE: Imaging protocol: XR of the chest Views: 1 view. COMPARISON: CR XR chest 1V portable [id number] 11/09/2019 5:10 PM FINDINGS: Lungs: Bilateral predominantly basilar infiltrates persist. There is some indistinctness of the pulmonary vasculature seen. Pleural space: Unremarkable. No pleural effusion. No pneumothorax. Heart/Mediastinum: The cardiac profile is at the upper limits of normal. Bones/joints: Unremarkable. XR/XR chest 1V portable [id number] IMPRESSION: Findings compatible with continuing cardiac decompensation or volume overload.
[2019-12-03 02:28] LABS: Basophils % 0.3 %; Eosinophils # 0.3 10^3/uL (0.0-0.8); Eosinophils % 2.5 %; Hematocrit 33.9 % (37.0-47.0); Hemoglobin 9.4 g/dL (11.5-15.3); Lymphocytes % 8.6 %; Mean Corpuscular HGB Conc 27.7 g/dL (30.0-36.0); Mean Corpuscular Hemoglobin 23.5 pg (28.0-34.0); Mean Corpuscular Volume 84.8 fL (81-99); Mean Platelet Volume 10.5 fL (7.4-10.4); Monocytes # 0.5 10^3/uL (0.2-0.9); Monocytes % 4.2 %; Neutrophils # 9.8 10^3/uL (1.8-7.7); Neutrophils % 83.9 %; Nucleated Red Blood Cells % 0 %; Platelet Count 282 10^3/cmm (130-400); Red Cell Distribution Width 18.3 % (12.1-15.1); White Blood Count 11.7 10^3/uL (4.0-10.0)
[2019-12-03 02:50] LABS: Alanine Aminotransferase 15 U/L (0-33); Albumin Level 3.9 g/dL (3.5-5.2); Alkaline Phosphatase 79 IU/L (35-105); Aspartate Amino Transferase 12 U/L (0-32); Blood Urea Nitrogen 18 mg/dL (6-20); Calcium 8.5 mg/dL (8.5-10.5); Carbon Dioxide 28 mmol/L (22-29); Chloride 100 mmol/L (98-107); Globulin 2.8 g/dL (1.3-4.6); Glomerular Filtration Rate 33.6 mL/min (90-130); Glucose 179 mg/dL (65-115); NT Pro B Type Natriuretic Pept 1213 pg/mL (0-125); Osmolality Calculated 289 mOsm/kg (285-295); Sodium 139 mmol/L (136-145); Total Bilirubin 1.1 mg/dL (0.15-1.2); Total Protein 6.7 g/dL (6.6-8.7)
[2019-12-03] MEDS: FUROsemide 10 mg/mL SDV 10mL 60 MG IVP (03:08)
--- NOTE | 2019-12-03 10:15 | PC.NURSE ---
patient returned from ct and PT is here to put on back brace
== END 2019-12-03 13:29 ==
PROVIDERS: Emergency Provider Emergency Medicine; Family Provider Internal Medicine; PCP Internal Medicine
DX: K12.1 Other forms of stomatitis (principal); K12.30 Oral mucositis (ulcerative), unspecified; I11.0 Hypertensive heart disease with heart failure; I50.9 Heart failure, unspecified; Z79.01 Long term (current) use of anticoagulants; I48.91 Unspecified atrial fibrillation; I13.0 Hypertensive heart and chronic kidney disease with heart failure and stage 1 through stage 4 chronic kidney disease, or unspecified chronic kidney disease; E11.22 Type 2 diabetes mellitus with diabetic chronic kidney disease; N18.3 Chronic kidney disease, stage 3 (moderate); Z79.84 Long term (current) use of oral hypoglycemic drugs; J44.9 Chronic obstructive pulmonary disease, unspecified
CPT/HCPCS: 12345; 71045; 80053; 83880; 85025; 96374; 99283; 99284; J1940

== ENCOUNTER 2019-12-22 22:13 | Emergency (ER) | payer MEDICARE, MEDICAID, SELFPAY ==
[2019-12-22 22:18] VITALS: BP 158/100; PULSE 126; RESP 32; TEMP 36.3; O2SAT 90; BMI 61.7
[2019-12-22 22:51] VITALS: BP 152/98; PULSE 102; RESP 24; O2SAT 96
--- NOTE | 2019-12-22 22:57 | XRR_ITS ---
PROCEDURE INFORMATION: Exam: XR Chest, 1 View Exam date and time: 12/22/2019 10:59 PM Age: 54 years old Clinical indication: Shortness of breath; Additional info: SOB TECHNIQUE: Imaging protocol: XR of the chest Views: 1 view. COMPARISON: CR XR chest 1V portable [id number] 12/03/2019 3:38 AM FINDINGS: Lungs: There is some indistinctness of the pulmonary vasculature and some hazy and patchy opacities in the lower hemithoraces bilaterally, findings could represent pulmonary edema. These findings are similar to those that were seen on 12/03/2019. Pleural space: Unremarkable. No pleural effusion. No pneumothorax. Heart/Mediastinum: Unremarkable. No cardiomegaly. Bones/joints: Unremarkable. XR/XR chest 1V portable [id number] IMPRESSION: Indistinct pulmonary vasculature with hazy and patchy opacities in the lower hemithoraces, findings that may represent pulmonary edema. These findings are similar to those that were seen on 12/03/2019.
[2019-12-22 23:23] LABS: Basophils % 0.2 %; Eosinophils # 0.3 10^3/uL (0.0-0.8); Eosinophils % 2.1 %; Hematocrit 34.9 % (37.0-47.0); Hemoglobin 9.6 g/dL (11.5-15.3); Lymphocytes # 0.7 10^3/uL (0.8-4.8); Lymphocytes % 5.8 %; Mean Corpuscular HGB Conc 27.5 g/dL (30.0-36.0); Mean Corpuscular Hemoglobin 22.5 pg (28.0-34.0); Mean Corpuscular Volume 81.9 fL (81-99); Mean Platelet Volume 10.7 fL (7.4-10.4); Monocytes # 0.5 10^3/uL (0.2-0.9); Monocytes % 4.3 %; Neutrophils # 10.5 10^3/uL (1.8-7.7); Neutrophils % 86.9 %; Nucleated Red Blood Cells % 0 %; Platelet Count 292 10^3/cmm (130-400); Red Blood Count 4.26 10^6/uL (4.1-5.3); Red Cell Distribution Width 18.5 % (12.1-15.1); White Blood Count 12.1 10^3/uL (4.0-10.0)
[2019-12-22 23:36] LABS: Lactic Sepsis W/Reflex 1.5 mmol/L (0.5-2.2)
[2019-12-22 23:47] LABS: Alanine Aminotransferase 15 U/L (0-33); Alkaline Phosphatase 81 IU/L (35-105); Aspartate Amino Transferase 11 U/L (0-32); Blood Urea Nitrogen 16 mg/dL (6-20); Calcium 9.1 mg/dL (8.5-10.5); Carbon Dioxide 28 mmol/L (22-29); Chloride 96 mmol/L (98-107); Globulin 2.6 g/dL (1.3-4.6); Glomerular Filtration Rate 39.2 mL/min (90-130); Glucose 278 mg/dL (65-115); NT Pro B Type Natriuretic Pept 1330 pg/mL (0-125); Osmolality Calculated 288 mOsm/kg (285-295); Sodium 136 mmol/L (136-145); Total Bilirubin 1.2 mg/dL (0.15-1.2); Total Protein 6.6 g/dL (6.6-8.7)
[2019-12-23] MEDS: predniSONE 20 mg Tablet 40 MG PO (01:59)
[2019-12-23 02:25] VITALS: BP 148/88; PULSE 90; RESP 26; O2SAT 94
--- NOTE | 2019-12-23 17:23 | W.ED.SOB ---
HPI - SOB/Dyspnea General: Chief Complaint: Shortness of Breath/Dyspnea Stated Complaint: sob Time Seen by Provider: 12/22/19 22:57 History of Present Illness: HPI Narrative: 54-year-old female representing for the second time in 2 weeks because of shortness of breath. She has some problems with her home oxygen machine, but is seem to remedy those. Actually today, she complains less of shortness of breath but more continued problems with the ulcers in her mouth causing her significant pain. She states it is impossible to eat solid food. She is having trouble with liquids even. Magic mouthwash helped to some degree transiently, but does not resolve her issue at all MD elicited complaint: shortness of breath Pertinent past history: congestive heart failure Onset (ago): day(s) Context: recent illness Timing: constant Severity: moderate Exacerbating factors: lying flat and exertion Relieving factors: oxygen and rest Known history of: congestive heart failure Associated symptoms: Reports cough and orthopnea; Deny chest pain, dizziness, extremity pain, fever(s) or vomiting Review of Systems Const: Denies: fever(s) or chills Eyes: Denies: change in vision or blurry vision ENMT: Denies: swelling of lips/tongue, bleeding gums, epistaxis, post nasal drip or sinus pain Card: Reports: orthopnea; Denies: chest pain Resp: Reports: dyspnea and non-productive cough; Denies: productive cough or wheezing GI: Denies: vomiting : Denies: dysuria or urinary frequency Musc: Denies: extremity pain Skin/Breast: Denies: pruritus or erythema Neuro: Denies: headache(s) or dizziness Psych: Denies: anxiety [facility] PFSH: Medical History (Updated 12/23/19 @ 01:38 by Bruno Henson DO) Atrial fibrillation Chronic anticoagulation On hold due to vaginal bleeding Chronic kidney disease, stage III (moderate) Cr has ranged 1.6-2.1 since 11/27 Congestive heart failure COPD (chronic obstructive pulmonary disease) Diabetes mellitus type 2, noninsulin dependent last A1c in 03/30 was 7.4 Hypertension Hypothyroidism last TSH in 03/30 was 6.18 Morbid obesity with BMI of 60.0-69.9, adult DELMIS (obstructive sleep apnea) Reports not currently compliant with therapy due to contaminated machine Oxygen dependent Vaginal bleeding Surgical History History of dental surgery Status post biopsy of skin Family History Other Chronic kidney disease (CKD) Diabetes Hypertension Thyroid disease Social History (Updated 11/09/19 @ 20:52 by Joaquín Chang MD) Smoking and tobacco status: former smoker Alcohol intake: never Physical Exam Const: GENERAL APPEARANCE: well developed ORIENTATION/CONSCIOUSNESS: Yes oriented to person, Yes oriented to place and Yes oriented to time HENMT: COMMON NORMALS: normocephalic, external ears normal and Normal external nose present HEAD & SCALP: normocephalic FACE & SINUS: normal facial exam NOSE: Normal external nose present and No nasal discharge present EXTERNAL EAR: Yes external ears normal MOUTH: other (Significant amount of aphthous ulcers both on tongue, and on oral mucosa.) TEETH & GINGIVA: no abnormal tooth and associated gingiva THROAT: posterior oropharynx normal; no peritonsillar mass Eye: COMMON NORMALS: Equal, round and reactive pupils present, EOMs intact bilaterally and conjunctivae normal EYELID: eyelids normal CONJUNCTIVA: Yes conjunctivae normal PUPIL: Yes Equal, round and reactive pupils present Neck/C-Spine: GENERAL: No tracheal deviation Chest: COMMONS NORMALS: normal inspection of the chest CHEST: No tenderness Resp: COMMON NORMALS: clear to auscultation bilaterally EFFORT & INSPECTION: No tachypneic, No respiratory distress, No retractions, No uses accessory muscles and No tracheal deviation AUSCULTATION: clear to auscultation bilaterally, no rhonchi, no wheezes and lung sounds not diminished Cardio: COMMON NORMALS: regular rate and regular rhythm RATE: regular rate RHYTHM: regular rhythm HEART SOUNDS: no murmurs PERIPHERAL PULSES: radial pulses present GI: INSPECTION: No abdominal distension AUSCULTATION: No Hyperactive bowel sounds present and No Hypoactive bowel sounds present PALPATION: No Guarding due to palpation present (GI) and No Rigid due to palpation PERCUSSION: no dullness to percussion and no tympanic to percussion Neuro: SENSORIUM/ORIENTATION: Yes oriented to person, Yes oriented to place and Yes oriented to time Psych: COMMON NORMALS: mental status grossly normal Skin: COMMON NORMALS: no rashes or lesions noted GENERAL SKIN EXAM: no rashes or lesions noted Course Vital Signs: Vital signs: Vital Signs Temperature 97.4 F L 12/22/19 22:18 Pulse Rate 90 12/23/19 02:25 Respiratory Rate 26 H 12/23/19 02:25 Blood Pressure 148/88 12/23/19 02:25 Pulse Oximetry 94 12/23/19 02:25 MDM - SOB/Dyspnea MDM Narrative: Medical decision making narrative: 54-year-old lady with a history of A. fib and CHF. She presents with shortness of breath, but her main complaint is that of oral ulcer pain. She is had a problem with continued aphthous ulcers. She still has several on exam today. Magic mouthwash helped transiently, but did not resolve her issue. Corticosteroids have some evidence for this. There are other drugs, but with her problems with shortness of breath, the corticosteroids may help both issues. We will prescribe her a slow taper of prednisone. Hopefully this will help with the ulcers. As well as the shortness of breath her chest x-ray was stable from prior. Her BNP is slightly elevated, as it was last time. We will have her double her Lasix dose for the next few days to help with this. She knows to return for any worsening symptoms. Lab Data: Labs: Lab Results 12/22/19 12/22/19 12/22/19 Range/Units 23:05 23:05 23:05 WBC 12.1 H (4.0-10.0) 10^3/ uL RBC 4.26 (4.1-5.3) 10^6/u L Hgb 9.6 L (11.5-15.3) g/dL Hct 34.9 L (37.0-47.0) % MCV 81.9 (81-99) fL MCH 22.5 L (28.0-34.0) pg MCHC 27.5 L (30.0-36.0) g/dL RDW 18.5 H (12.1-15.1) % Plt Count 292 (130-400) 10^3/c mm MPV 10.7 H (7.4-10.4) fL Neut % (Auto) 86.9 % Lymph % (Auto) 5.8 % Mower % (Auto) 4.3 % Eos % (Auto) 2.1 % Baso % (Auto) 0.2 % Neut # (Auto) 10.5 H (1.8-7.7) 10^3/u L Lymph # (Auto) 0.7 L (0.8-4.8) 10^3/u L Mower # (Auto) 0.5 (0.2-0.9) 10^3/u L Eos # (Auto) 0.3 (0.0-0.8) 10^3/u L Baso # (Auto) 0.0 (0.0-0.1) 10^3/u L Nucleated RBC % (a uto) 0 % Nucleated RBCs # 0.0 /100WBC Sodium 136 (136-145) mmol/L Potassium 4.0 (3.5-5.1) mmol/L Chloride 96 L (98-107) mmol/L Carbon Dioxide 28 (22-29) mmol/L Anion Gap 16.0 (5-19) BUN 16 (6-20) mg/dL Creatinine 1.4 H (0.5-0.9) mg/dL GFR Calculation 39.2 L (90-130) mL/min Glucose 278 H (65-115) mg/dL Calculated Osmolal ity 288 (285-295) mOsm/k g Lactic Acid 1.5 (0.5-2.2) mmol/L Calcium 9.1 (8.5-10.5) mg/dL Total Bilirubin 1.2 (0.15-1.2) mg/dL AST 11 (0-32) U/L ALT 15 (0-33) U/L Alkaline Phosphata se 81 (35-105) IU/L NT-Pro-B Natriuret Pep 1330 H (0-125) pg/mL Total Protein 6.6 (6.6-8.7) g/dL Albumin 4.0 (3.5-5.2) g/dL Globulin 2.6 (1.3-4.6) g/dL Discharge Plan Discharge Patient Disposition: Home, Self-Care Clinical Impression: Oral mucositis Congestive heart failure Qualifiers: Heart failure type: systolic Heart failure chronicity: chronic Qualified Code(s): I50.22 - Chronic systolic (congestive) heart failure Condition: Stable Prescriptions: New prednisone 10 mg tablet 10 mg PO DAILY Qty: 21 RF: 0 No Action gabapentin 300 mg capsule 300 mg PO TID RF: 0 Wellbutrin SR 200 mg tablet sustained-release 12 hr 200 mg PO .morning Qty: 30 RF: 3 sertraline [Zoloft] 100 mg tablet 100 mg PO .morning Qty: 30 RF: 4 nystatin-triamcinolone 100,000-0.1 unit/g-% cream 1 applic TOPICAL BID Qty: 30 RF: 0 glipizide 2.5 mg Tablet Extended Release 24hr 2.5 mg PO DAILY RF: 0 diclofenac sodium 1 % Gel 4 g TOPICAL QID PRN (Reason: Pain) RF: 0 isosorbide mononitrate 30 mg Tablet Extended Release 24 Hr 30 mg PO DAILY Qty: 30 RF: 0 sumatriptan succinate [Imitrex] 25 mg Tablet 25 mg PO Q6H PRN (Reason: Migraine Headache) Qty: 0 RF: 0 Zofran 4 mg Tablet 4 mg PO Q6H PRN (Reason: NAUSEA/VOMITING) RF: 0 hydroxyzine pamoate 25 mg capsule 25 mg PO TID PRN (Reason: Anxiety) RF: 0 Abilify 5 mg Tablet 5 mg PO DAILY RF: 0 metoprolol tartrate 25 mg Tablet 25 mg PO BID Qty: 30 RF: 0 Eliquis 5 mg Tablet 5 mg PO BID Qty: 30 RF: 0 Cartia XT 120 mg capsule,extended release 24hr 120 mg PO DAILY Qty: 30 RF: 0 furosemide 40 mg Tablet 40 mg PO BIDWM Qty: 60 RF: 1 Discharge Orders: Discharge Order (Routine); Ordered 12/23/19 Ordered By: Bruno Henson Referrals: Mervat Nguyen [Primary Care Provider] - 4-7 days Discharge Diet: Usual diet Discharge Activity: Increase activity as tolerated Patient Instructions: Congestive Heart Failure, Oral Mucositis (ED) Activity Restrictions/Additional Instructions: Double your Lasix dose for the next 3 days, then back to normal. Medication as directed. It should begin to help with the mouth sores in about 72 hours. Turn for worsening symptoms despite treatment. Discharge Date/Time: 12/23/19 02:29 Coding Level of Care Code ED Assistant Professor Of Psychology for Tanner Chavez
== END 2019-12-23 02:29 | disposition home or self-care (01) ==
PROVIDERS: Emergency Provider Emergency Medicine; PCP Internal Medicine
DX: I11.0 Hypertensive heart disease with heart failure (principal); I50.22 Chronic systolic (congestive) heart failure; K12.30 Oral mucositis (ulcerative), unspecified; Z79.01 Long term (current) use of anticoagulants; I48.91 Unspecified atrial fibrillation; I13.0 Hypertensive heart and chronic kidney disease with heart failure and stage 1 through stage 4 chronic kidney disease, or unspecified chronic kidney disease; E11.22 Type 2 diabetes mellitus with diabetic chronic kidney disease; N18.3 Chronic kidney disease, stage 3 (moderate); Z87.891 Personal history of nicotine dependence
CPT/HCPCS: 12345; 71045; 80053; 83605; 83880; 85025; 87040; 99281; 99284; J7512

== ENCOUNTER → 2019-12-26 07:37 | Outpatient (BNVA) | payer MEDICARE, MEDICAID, SELFPAY | PROVIDERS: PCP Internal Medicine; Visit Provider Nurse Practitioner Psychiatric/Mental Health | DX: F33.2 Major depressive disorder, recurrent severe without psychotic features (principal); F41.1 Generalized anxiety disorder; F42.3 Hoarding disorder | CPT/HCPCS: 99214 ==

== ENCOUNTER 2020-02-06 14:17 | Inpatient (IN) | payer MEDICARE, MEDICAID, SELFPAY ==
[2020-02-06] VITALS (15 sets, daily range): BP systolic 106–151; BP diastolic 60–93; PULSE 85–158; RESP 14–24; TEMP 36.5–37.1; O2SAT 94–100; BMI 57.4
--- NOTE | 2020-02-06 14:32 | ED_ITS ---
Documented by User: FADI Colón 02/06/20 16:40 HPI - Female Genitourinary General: Chief complaint: Urogenital-Female Stated complaint: N/V, UTI Time Seen by Provider: 02/06/20 14:25 History of Present Illness: HPI Narrative: Patient is a 54-year-old female comes to the ED with UTI symptoms and nausea and vomiting. Patient has a past medical history of A. fib with RVR, heart failure, CKD stage III, diabetes type 2, morbid obesity and hypertension. Patient on O2 at home and uses 3 L nasal cannula at home patient states she has had UTI symptoms such as burning and blood in the urine that started approximately 2 weeks ago. She went in and saw Hansel Hallman and was diagnosed with a UTI and has been taking antibiotic for 10 days. It has not helped her symptoms and now she is developed nausea and vomiting over the past 5 days. She is also having some abdominal pain. Patient endorses on and off diarrhea for the past week. Associated symptoms: Reports abdominal pain and nausea; Deny headache(s) Review of Systems Const: Denies: fever(s), chills or fatigue Eyes: Denies: change in vision or eye discomfort ENMT: Denies: throat pain, odynophagia, nasal discharge or nasal congestion Card: Denies: chest pain, palpitations, edema, swelling of feet/ankles, dyspnea on exertion or orthopnea Resp: Reports: dyspnea (chronic issue); Denies: productive cough or non-productive cough GI: Reports: abdominal pain, nausea, vomiting and diarrhea; Denies: constipation or hematochezia : Reports: dysuria and hematuria; Denies: flank pain Musc: Denies: neck pain, back pain or extremity swelling Skin/Breast: Denies: rash or new lesions Neuro: Denies: headache(s), numbness in extremities or weakness in extremities PFSH ED PFSH: Medical History Atrial fibrillation Chronic anticoagulation On hold due to vaginal bleeding Chronic kidney disease, stage III (moderate) Cr has ranged 1.6-2.1 since 11/27 Congestive heart failure COPD (chronic obstructive pulmonary disease) Diabetes mellitus type 2, noninsulin dependent last A1c in 03/30 was 7.4 Generalized anxiety disorder Hoarding disorder with excessive acquisition Hypertension Hypothyroidism last TSH in 03/30 was 6.18 Major depressive disorder, recurrent severe without psychotic features Morbid obesity with BMI of 60.0-69.9, adult DELMIS (obstructive sleep apnea) Reports not currently compliant with therapy due to contaminated machine Oxygen dependent Vaginal bleeding Surgical History History of dental surgery Status post biopsy of skin Family History Other Chronic kidney disease (CKD) Diabetes Hypertension Thyroid disease Social History Smoking and tobacco status: former smoker Alcohol intake: never Physical Exam Narrative: EXAM NARRATIVE: Patient is alert and oriented but appears to be in some discomfort during history and physical exam. Const: COMMON NORMALS: patient oriented x3 and alert GENERAL APPEARANCE: cooperative and in distress NUTRITIONAL APPEARANCE: obese morbidly obese HENMT: COMMON NORMALS: normocephalic HEAD & SCALP: normocephalic MOUTH: Normal oral and palatal mucosa present and moist mucous membranes abnormal (dry) Details: parched THROAT: posterior oropharynx normal and uvula midline Eye: COMMON NORMALS: Equal, round and reactive pupils present PUPIL: Yes Equal, round and reactive pupils present Neck/C-Spine: COMMON NORMALS: supple GENERAL: Yes normal visual inspection Resp: COMMON NORMALS: normal respiratory effort, No retractions, No use of accessory muscles and clear to auscultation bilaterally AUSCULTATION: clear to auscultation bilaterally Cardio: COMMON NORMALS: regular rate, S1 normal heart sound present, S2 normal heart sound present, No gallops present (Cardio), No clicks present (Cardio), No murmurs present (Cardio) and Peripheral pulses 2+ throughout RATE: regular rate RHYTHM: abnormal rhythm irregularly irregular HEART SOUNDS: S1 normal heart sound present and S2 normal heart sound present PERIPHERAL PULSES: Peripheral pulses 2+ throughout GI: COMMON NORMALS: Normal to inspection, nondistended, normoactive bowel sounds present, Soft to palpation and no masses INSPECTION: Yes central obesity PALPATION: Yes Soft to palpation and Yes Tenderness to palpation present (GI) Details: LLQ : COMMON NORMALS: Yes no CVA tenderness BLADDER/KIDNEY EXAM: Yes no CVA tenderness Back/Pelvis: COMMON NORMALS: no CVA tenderness Extremity: COMMON NORMALS: normal to inspection Neuro: COMMON NORMALS: patient oriented x3 and moves all extremities SENSORIUM/ORIENTATION: Yes alert Skin: COMMON NORMALS: no rashes or lesions noted GENERAL SKIN EXAM: no rashes or lesions noted and dry skin Course Vital Signs: Vital signs: Vital Signs Temperature 98.7 F 02/06/20 14:24 Pulse Rate 157 H 02/06/20 16:24 Respiratory Rate 20 H 02/06/20 16:24 Blood Pressure 127/72 02/06/20 16:24 Pulse Oximetry 97 02/06/20 16:24 MDM - Female MDM Narrative: Medical decision making narrative: Patient is a 54-year-old female comes to the ED with nausea, vomiting and UTI symptoms. Labs were ordered and critical lab results of sodium 115 and glucose of 1055. I talked with Dr. Golden about patient's case and he will be taking over care and management of patient. ABGs ordered. Lab Data: Attestation: I reviewed the patient's lab results. Labs: Lab Results 02/06/20 02/06/20 02/06/20 Range/Units 14:39 14:39 14:47 WBC 11.4 H (4.0-10.0) 10^3/ uL RBC 5.71 H (4.1-5.3) 10^6/u L Hgb 13.4 (11.5-15.3) g/dL Hct 47.0 (37.0-47.0) % MCV 82.3 (81-99) fL MCH 23.5 L (28.0-34.0) pg MCHC 28.5 L (30.0-36.0) g/dL RDW 19.7 H (12.1-15.1) % Plt Count 220 (130-400) 10^3/c mm MPV 11.5 H (7.4-10.4) fL Neut % (Auto) 87.1 % Lymph % (Auto) 6.9 % [place] % (Auto) 4.0 % Eos % (Auto) 1.0 % Baso % (Auto) 0.5 % Neut # (Auto) 9.92 H (1.8-7.7) 10^3/u L Lymph # (Auto) 0.8 (0.8-4.8) 10^3/u L [place] # (Auto) 0.5 (0.2-0.9) 10^3/u L Eos # (Auto) 0.1 (0.0-0.8) 10^3/u L Baso # (Auto) 0.1 (0.0-0.1) 10^3/u L Nucleated RBC % (a uto) 0 % Nucleated RBCs # 0.0 /100WBC Specimen Type Sample Site ABG pH (7.35-7.45) ABG pCO2 (35-45) mmHg ABG pO2 (80.0-100.0) mmH g ABG HCO3 (22-26) mmol/L ABG Base Excess (-2.0-2.0) mmol/ L Elian Test Hematocrit (37-47) % O2 Delivery Device O2 Liters/Min % FiO2 % Legal Investigator ID Sodium 115 L* (136-145) mmol/L Potassium 3.8 (3.5-5.1) mmol/L Chloride 76 L (98-107) mmol/L Carbon Dioxide 23 (22-29) mmol/L Anion Gap 19.8 H (5-19) BUN 14 (6-20) mg/dL Creatinine 2.0 H (0.5-0.9) mg/dL GFR Calculation 26.0 L (90-130) mL/min Glucose 1055 H* (65-115) mg/dL POC Glucose (70-110) mg/dL Calculated Osmolal ity 289 (285-295) mOsm/k g Calcium 9.0 (8.5-10.5) mg/dL Total Bilirubin 0.9 (0.15-1.2) mg/dL AST 9 (0-32) U/L ALT 11 (0-33) U/L Alkaline Phosphata se 121 H (35-105) IU/L Total Protein 6.8 (6.6-8.7) g/dL Albumin 3.6 (3.5-5.2) g/dL Globulin 3.2 (1.3-4.6) g/dL Lipase 39 (13-60) U/L Urine Color Yellow (Yellow) Urine Appearance Clear (CLEAR) Urine pH 6.5 (5-7) Ur Specific Gravit y 1.005 (1.005-1.030) Urine Protein Neg (Negative) Urine Glucose (UA) Norm (Normal) Urine Ketones Negative (Negative) Urine Blood Neg (Negative) Urine Nitrate Negative (Negative) Urine Bilirubin Neg (NEGATIVE) Urine Urobilinogen Neg (Negative) mg/dL Ur Leukocyte [place] ase Negative (Negative) Urine RBC None (0-2) /hpf Urine WBC 0-4 H (0-5) /hpf Ur Squamous Epith Cells 5-10 H (0-5) Amorphous Sediment Not Reportable Urine Bacteria Trace (NONE) 02/06/20 02/06/20 Range/Units 15:46 16:35 WBC (4.0-10.0) 10^3/ uL RBC (4.1-5.3) 10^6/u L Hgb (11.5-15.3) g/dL Hct (37.0-47.0) % MCV (81-99) fL MCH (28.0-34.0) pg MCHC (30.0-36.0) g/dL RDW (12.1-15.1) % Plt Count (130-400) 10^3/c mm MPV (7.4-10.4) fL Neut % (Auto) % Lymph % (Auto) % [place] % (Auto) % Eos % (Auto) % Baso % (Auto) % Neut # (Auto) (1.8-7.7) 10^3/u L Lymph # (Auto) (0.8-4.8) 10^3/u L [place] # (Auto) (0.2-0.9) 10^3/u L Eos # (Auto) (0.0-0.8) 10^3/u L Baso # (Auto) (0.0-0.1) 10^3/u L Nucleated RBC % (a uto) % Nucleated RBCs # /100WBC Specimen Type Arterial Sample Site Radial, left ABG pH 7.46 H (7.35-7.45) ABG pCO2 33.7 L (35-45) mmHg ABG pO2 110.0 H (80.0-100.0) mmH g ABG HCO3 24.0 (22-26) mmol/L ABG Base Excess 0.7 (-2.0-2.0) mmol/ L Elian Test Pos Hematocrit 42.4 (37-47) % O2 Delivery Device Nc O2 Liters/Min 2.0 % FiO2 28.0 % Legal Investigator ID Cak Sodium (136-145) mmol/L Potassium (3.5-5.1) mmol/L Chloride (98-107) mmol/L Carbon Dioxide (22-29) mmol/L Anion Gap (5-19) BUN (6-20) mg/dL Creatinine (0.5-0.9) mg/dL GFR Calculation (90-130) mL/min Glucose (65-115) mg/dL POC Glucose > 600 (70-110) mg/dL Calculated Osmolal ity (285-295) mOsm/k g Calcium (8.5-10.5) mg/dL Total Bilirubin (0.15-1.2) mg/dL AST (0-32) U/L ALT (0-33) U/L Alkaline Phosphata se (35-105) IU/L Total Protein (6.6-8.7) g/dL Albumin (3.5-5.2) g/dL Globulin (1.3-4.6) g/dL Lipase (13-60) U/L Urine Color (Yellow) Urine Appearance (CLEAR) Urine pH (5-7) Ur Specific Gravit y (1.005-1.030) Urine Protein (Negative) Urine Glucose (UA) (Normal) Urine Ketones (Negative) Urine Blood (Negative) Urine Nitrate (Negative) Urine Bilirubin (NEGATIVE) Urine Urobilinogen (Negative) mg/dL Ur Leukocyte [place] ase (Negative) Urine RBC (0-2) /hpf Urine WBC (0-5) /hpf Ur Squamous Epith Cells (0-5) Amorphous Sediment Urine Bacteria (NONE) EKG Data: EKG 1: Attestation: I personally reviewed and interpreted this EKG as follows: EKG Data: 02/06/20 Interpretation: A. fib with RVR, 133 bpm, no ST segment elevation or depression seen. Discharge Plan Discharge Condition: Good Prescriptions: No Action gabapentin 300 mg capsule 300 mg PO TID RF: 0 Abilify 5 mg tablet 5 mg PO .morning Qty: 90 RF: 2 Wellbutrin SR 200 mg tablet sustained-release 12 hr 200 mg PO .morning Qty: 90 RF: 2 sertraline [Zoloft] 100 mg tablet 100 mg PO .morning Qty: 90 RF: 2 hydroxyzine pamoate 25 mg capsule 25 mg PO TID PRN (Reason: Anxiety) Qty: 270 RF: 1 hydrocodone-acetaminophen 10-325 mg tablet 1 tab PO Q8H PRN (Reason: Pain) RF: 0 nystatin-triamcinolone 100,000-0.1 unit/g-% cream 1 applic TOPICAL BID Qty: 30 RF: 0 glipizide 2.5 mg Tablet Extended Release 24hr 2.5 mg PO DAILY RF: 0 diclofenac sodium 1 % Gel 4 g TOPICAL QID PRN (Reason: Pain) RF: 0 isosorbide mononitrate 30 mg Tablet Extended Release 24 Hr 30 mg PO DAILY Qty: 30 RF: 0 sumatriptan succinate [Imitrex] 25 mg Tablet 25 mg PO Q6H PRN (Reason: Migraine Headache) Qty: 0 RF: 0 ondansetron HCl [Zofran] 4 mg Tablet 4 mg PO Q6H PRN (Reason: NAUSEA/VOMITING) RF: 0 metoprolol tartrate 25 mg Tablet 25 mg PO BID Qty: 30 RF: 0 Eliquis 5 mg Tablet 5 mg PO BID Qty: 30 RF: 0 diltiazem HCl [Cartia XT] 120 mg capsule,extended release 24hr 120 mg PO DAILY Qty: 30 RF: 0 furosemide 40 mg Tablet 40 mg PO BIDWM Qty: 60 RF: 1 Coding Level of Care Code ED Note Specialist for Chg Fwd Exam Comprehensive Documented by User: Pablo Guerra, 02/06/20 16:26 HPI - Female Genitourinary General: Chief complaint: Urogenital-Female Stated complaint: N/V, UTI Time Seen by Provider: 02/06/20 14:25 PFSH ED PFSH: Medical History Atrial fibrillation Chronic anticoagulation On hold due to vaginal bleeding Chronic kidney disease, stage III (moderate) Cr has ranged 1.6-2.1 since 11/27 Congestive heart failure COPD (chronic obstructive pulmonary disease) Diabetes mellitus type 2, noninsulin dependent last A1c in 9/19 was 7.4 Generalized anxiety disorder Hoarding disorder with excessive acquisition Hypertension Hypothyroidism last TSH in 03/30 was 6.18 Major depressive disorder, recurrent severe without psychotic features Morbid obesity with BMI of 60.0-69.9, adult DELMIS (obstructive sleep apnea) Reports not currently compliant with therapy due to contaminated machine Oxygen dependent Vaginal bleeding Surgical History History of dental surgery Status post biopsy of skin Family History Other Chronic kidney disease (CKD) Diabetes Hypertension Thyroid disease Social History Smoking and tobacco status: former smoker Alcohol intake: never Course ED course: FADI López presented this patient to me and I assumed care. I ordered further appropriate labs and medications. I have contacted Dr. Metzger who will see the patient in the emergency department. Vital Signs: Vital signs: Vital Signs Temperature 98.7 F 02/06/20 14:24 Pulse Rate 157 H 02/06/20 16:24 Respiratory Rate 20 H 02/06/20 16:24 Blood Pressure 127/72 02/06/20 16:24 Pulse Oximetry 97 02/06/20 16:24 MDM - Female Lab Data: Labs: Lab Results 02/06/20 02/06/20 02/06/20 Range/Units 14:39 14:39 14:47 WBC 11.4 H (4.0-10.0) 10^3/ uL RBC 5.71 H (4.1-5.3) 10^6/u L Hgb 13.4 (11.5-15.3) g/dL Hct 47.0 (37.0-47.0) % MCV 82.3 (81-99) fL MCH 23.5 L (28.0-34.0) pg MCHC 28.5 L (30.0-36.0) g/dL RDW 19.7 H (12.1-15.1) % Plt Count 220 (130-400) 10^3/c mm MPV 11.5 H (7.4-10.4) fL Neut % (Auto) 87.1 % Lymph % (Auto) 6.9 % [place] % (Auto) 4.0 % Eos % (Auto) 1.0 % Baso % (Auto) 0.5 % Neut # (Auto) 9.92 H (1.8-7.7) 10^3/u L Lymph # (Auto) 0.8 (0.8-4.8) 10^3/u L [place] # (Auto) 0.5 (0.2-0.9) 10^3/u L Eos # (Auto) 0.1 (0.0-0.8) 10^3/u L Baso # (Auto) 0.1 (0.0-0.1) 10^3/u L Nucleated RBC % (a uto) 0 % Nucleated RBCs # 0.0 /100WBC Specimen Type Sample Site ABG pH (7.35-7.45) ABG pCO2 (35-45) mmHg ABG pO2 (80.0-100.0) mmH g ABG HCO3 (22-26) mmol/L ABG Base Excess (-2.0-2.0) mmol/ L Elian Test Hematocrit (37-47) % O2 Delivery Device O2 Liters/Min % FiO2 % Legal Investigator ID Sodium 115 L* (136-145) mmol/L Potassium 3.8 (3.5-5.1) mmol/L Chloride 76 L (98-107) mmol/L Carbon Dioxide 23 (22-29) mmol/L Anion Gap 19.8 H (5-19) BUN 14 (6-20) mg/dL Creatinine 2.0 H (0.5-0.9) mg/dL GFR Calculation 26.0 L (90-130) mL/min Glucose 1055 H* (65-115) mg/dL POC Glucose (70-110) mg/dL Calculated Osmolal ity 289 (285-295) mOsm/k g Calcium 9.0 (8.5-10.5) mg/dL Total Bilirubin 0.9 (0.15-1.2) mg/dL AST 9 (0-32) U/L ALT 11 (0-33) U/L Alkaline Phosphata se 121 H (35-105) IU/L Total Protein 6.8 (6.6-8.7) g/dL Albumin 3.6 (3.5-5.2) g/dL Globulin 3.2 (1.3-4.6) g/dL Lipase 39 (13-60) U/L Urine Color Yellow (Yellow) Urine Appearance Clear (CLEAR) Urine pH 6.5 (5-7) Ur Specific Gravit y 1.005 (1.005-1.030) Urine Protein Neg (Negative) Urine Glucose (UA) Norm (Normal) Urine Ketones Negative (Negative) Urine Blood Neg (Negative) Urine Nitrate Negative (Negative) Urine Bilirubin Neg (NEGATIVE) Urine Urobilinogen Neg (Negative) mg/dL Ur Leukocyte [place] ase Negative (Negative) Urine RBC None (0-2) /hpf Urine WBC 0-4 H (0-5) /hpf Ur Squamous Epith Cells 5-10 H (0-5) Amorphous Sediment Not Reportable Urine Bacteria Trace (NONE) 02/06/20 02/06/20 Range/Units 15:46 16:35 WBC (4.0-10.0) 10^3/ uL RBC (4.1-5.3) 10^6/u L Hgb (11.5-15.3) g/dL Hct (37.0-47.0) % MCV (81-99) fL MCH (28.0-34.0) pg MCHC (30.0-36.0) g/dL RDW (12.1-15.1) % Plt Count (130-400) 10^3/c mm MPV (7.4-10.4) fL Neut % (Auto) % Lymph % (Auto) % [place] % (Auto) % Eos % (Auto) % Baso % (Auto) % Neut # (Auto) (1.8-7.7) 10^3/u L Lymph # (Auto) (0.8-4.8) 10^3/u L [place] # (Auto) (0.2-0.9) 10^3/u L Eos # (Auto) (0.0-0.8) 10^3/u L Baso # (Auto) (0.0-0.1) 10^3/u L Nucleated RBC % (a uto) % Nucleated RBCs # /100WBC Specimen Type Arterial Sample Site Radial, left ABG pH 7.46 H (7.35-7.45) ABG pCO2 33.7 L (35-45) mmHg ABG pO2 110.0 H (80.0-100.0) mmH g ABG HCO3 24.0 (22-26) mmol/L ABG Base Excess 0.7 (-2.0-2.0) mmol/ L Elian Test Pos Hematocrit 42.4 (37-47) % O2 Delivery Device Nc O2 Liters/Min 2.0 % FiO2 28.0 % Legal Investigator ID Cak Sodium (136-145) mmol/L Potassium (3.5-5.1) mmol/L Chloride (98-107) mmol/L Carbon Dioxide (22-29) mmol/L Anion Gap (5-19) BUN (6-20) mg/dL Creatinine (0.5-0.9) mg/dL GFR Calculation (90-130) mL/min Glucose (65-115) mg/dL POC Glucose > 600 (70-110) mg/dL Calculated Osmolal ity (285-295) mOsm/k g Calcium (8.5-10.5) mg/dL Total Bilirubin (0.15-1.2) mg/dL AST (0-32) U/L ALT (0-33) U/L Alkaline Phosphata se (35-105) IU/L Total Protein (6.6-8.7) g/dL Albumin (3.5-5.2) g/dL Globulin (1.3-4.6) g/dL Lipase (13-60) U/L Urine Color (Yellow) Urine Appearance (CLEAR) Urine pH (5-7) Ur Specific Gravit y (1.005-1.030) Urine Protein (Negative) Urine Glucose (UA) (Normal) Urine Ketones (Negative) Urine Blood (Negative) Urine Nitrate (Negative) Urine Bilirubin (NEGATIVE) Urine Urobilinogen (Negative) mg/dL Ur Leukocyte [place] ase (Negative) Urine RBC (0-2) /hpf Urine WBC (0-5) /hpf Ur Squamous Epith Cells (0-5) Amorphous Sediment Urine Bacteria (NONE) Discharge Plan Discharge Condition: Good Prescriptions: No Action gabapentin 300 mg capsule 300 mg PO TID RF: 0 Abilify 5 mg tablet 5 mg PO .morning Qty: 90 RF: 2 Wellbutrin SR 200 mg tablet sustained-release 12 hr 200 mg PO .morning Qty: 90 RF: 2 sertraline [Zoloft] 100 mg tablet 100 mg PO .morning Qty: 90 RF: 2 hydroxyzine pamoate 25 mg capsule 25 mg PO TID PRN (Reason: Anxiety) Qty: 270 RF: 1 hydrocodone-acetaminophen 10-325 mg tablet 1 tab PO Q8H PRN (Reason: Pain) RF: 0 nystatin-triamcinolone 100,000-0.1 unit/g-% cream 1 applic TOPICAL BID Qty: 30 RF: 0 glipizide 2.5 mg Tablet Extended Release 24hr 2.5 mg PO DAILY RF: 0 diclofenac sodium 1 % Gel 4 g TOPICAL QID PRN (Reason: Pain) RF: 0 isosorbide mononitrate 30 mg Tablet Extended Release 24 Hr 30 mg PO DAILY Qty: 30 RF: 0 sumatriptan succinate [Imitrex] 25 mg Tablet 25 mg PO Q6H PRN (Reason: Migraine Headache) Qty: 0 RF: 0 ondansetron HCl [Zofran] 4 mg Tablet 4 mg PO Q6H PRN (Reason: NAUSEA/VOMITING) RF: 0 metoprolol tartrate 25 mg Tablet 25 mg PO BID Qty: 30 RF: 0 Eliquis 5 mg Tablet 5 mg PO BID Qty: 30 RF: 0 diltiazem HCl [Cartia XT] 120 mg capsule,extended release 24hr 120 mg PO DAILY Qty: 30 RF: 0 furosemide 40 mg Tablet 40 mg PO BIDWM Qty: 60 RF: 1 Coding Level of Care Code ED Note Specialist for Chg Fwd Exam Comprehensive
[2020-02-06 14:47] LABS: Basophils # 0.1 10^3/uL (0.0-0.1); Basophils % 0.5 %; Eosinophils # 0.1 10^3/uL (0.0-0.8); Hemoglobin 13.4 g/dL (11.5-15.3); Lymphocytes # 0.8 10^3/uL (0.8-4.8); Lymphocytes % 6.9 %; Mean Corpuscular HGB Conc 28.5 g/dL (30.0-36.0); Mean Corpuscular Hemoglobin 23.5 pg (28.0-34.0); Mean Corpuscular Volume 82.3 fL (81-99); Mean Platelet Volume 11.5 fL (7.4-10.4); Monocytes # 0.5 10^3/uL (0.2-0.9); Neutrophils # 9.92 10^3/uL (1.8-7.7); Neutrophils % 87.1 %; Nucleated Red Blood Cells % 0 %; Platelet Count 220 10^3/cmm (130-400); Red Blood Count 5.71 10^6/uL (4.1-5.3); Red Cell Distribution Width 19.7 % (12.1-15.1); White Blood Count 11.4 10^3/uL (4.0-10.0)
[2020-02-06 15:00] LABS: Alanine Aminotransferase 11 U/L (0-33); Albumin Level 3.6 g/dL (3.5-5.2); Alkaline Phosphatase 121 IU/L (35-105); Anion Gap 19.8 (5-19); Aspartate Amino Transferase 9 U/L (0-32); Blood Urea Nitrogen 14 mg/dL (6-20); Carbon Dioxide 23 mmol/L (22-29); Chloride 76 mmol/L (98-107); Globulin 3.2 g/dL (1.3-4.6); Lipase 39 U/L (13-60); Potassium 3.8 mmol/L (3.5-5.1); Total Bilirubin 0.9 mg/dL (0.15-1.2); Total Protein 6.8 g/dL (6.6-8.7)
[2020-02-06 15:04] LABS: Sodium 115 mmol/L (136-145)
[2020-02-06 15:07] LABS: Slide Review Slide Review Perform
[2020-02-06 15:09] LABS: Osmolality Calculated 289 mOsm/kg (285-295)
[2020-02-06] MEDS: ondansetron 2 mg/ML SDV 2 mL 4 MG IVP (15:10)
[2020-02-06] MEDS: morphine 4 mg/mL SDV 1 mL IVP (15:10)
[2020-02-06 15:11] LABS: Glucose 1055 mg/dL (65-115)
[2020-02-06 15:12] LABS: Bilirubin Urine Neg (NEGATIVE); Blood Urine Neg (Negative); Glucose Urine UA Norm (Normal); Ketones Urine Negative (Negative); Leukocyte Esterase Urine Negative (Negative); Nitrate Urine Negative (Negative); Protein Urine Neg (Negative); Specific Gravity, Urine 1.005 (1.005-1.030); Urine Appearance Clear (CLEAR); Urine Color Yellow (Yellow); Urobilinogen Urine Neg (Negative); pH Urine 6.5 (5-7)
[2020-02-06 15:18] LABS: Add Urine Culture? No; Bacteria Urine TRACE; WBC Urine 0-4 /hpf (0-5)
--- NOTE | 2020-02-06 15:22 | XRR_ITS ---
PROCEDURE INFORMATION: Exam: XR Chest, 1 View Exam date and time: 02/06/2020 3:51 PM Age: 54 years old Clinical indication: Patient HX: HX of chf. HX of afib. Nausea/vomiting. UTI TECHNIQUE: Imaging protocol: XR of the chest Views: 1 view. COMPARISON: CR XR chest 1V portable [id number] 12/22/2019 11:13 PM FINDINGS: Lungs: There is improving vascular congestion/CHF compared to the prior exam but there is still some mild cephalization of flow and interstitial prominence. There is decreasing bibasilar ground-glass opacity that may reflect some mild edema, atelectasis or recurrent pneumonitis. There is no dense lobar consolidation. Pleural space: Unremarkable. No pleural effusion. No pneumothorax. Heart/Mediastinum: The heart is enlarged. Bones/joints: Moderate degenerative changes are noted in the spine. XR/XR chest 1V portable [id number] IMPRESSION: 1. There is improving vascular congestion/CHF compared to the prior exam but there is still some mild cephalization of flow and interstitial prominence. 2. There is decreasing/less prominent bibasilar ground-glass opacity that may reflect basilar fibrosis with superimposed mild edema, atelectasis or recurrent pneumonitis.
[2020-02-06] MEDS: potassium chloride premix 40 MEQ/100 ML PREMIX 25 MEQ IV (15:46)
[2020-02-06] MEDS: sodium chloride 0.9% 1,000 ML 999 ML IV (15:46)
[2020-02-06] MEDS: insulin regular-human 250 UNIT in sodium chloride 0.9% 250 ML 5.1 UNIT IV (15:53)
[2020-02-06] MEDS: insulin regular-human 100 units/1 mL 10 UNIT IVP (15:54)
--- NOTE | 2020-02-06 15:56 | ECG_ITS ---
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 Measurements Intervals [place] Rate: 133 P: NC: -1 QRS: 20 QRSD: 85 T: 54 QT: 310 QTc: 462 Interpretive Statements ATRIAL FIBRILLATION WITH RAPID VENTRICULAR RESPONSE NONSPECIFIC T-WAVE ABNORMALITY ABNORMAL RHYTHM ECG Compared to ECG 11/10/2019 00:03:44 T-wave abnormality now present Electronically Signed On 02-06-2020 20:44:00 CDT by Joaquín Adames M.D. [email or web address]
[2020-02-06 15:58] LABS: ABG PCO2 33.7 mmHg (35-45); ABG PH Result 7.46 (7.35-7.45); Arterial Blood Gas Hematocrit 42.4 % (37-47); Base Excess ABG 0.7 mmol/L (-2.0-2.0); Blood Gas Allen Test Pos; Blood Gas Operator Identificat CAK; Blood Gas Sample Site Radial, left; Blood Gas Sample Type Arterial; Oxygen Device NC
--- NOTE | 2020-02-06 16:37 | PC.NURSE ---
Titrating insulin drip at this time, at 1 HR glucose check BG read HIGH, order received to have lab drawn for glucose results. Insulin drip continues at 5unit/hr.
[2020-02-06 16:38] LABS: Glucose Point of Care > 600 mg/dL (70-110)
[2020-02-06] MEDS: sodium chloride 0.9% 1,000 ML 100 ML IV (17:59)
--- NOTE | 2020-02-06 18:06 | P.HP_ITS ---
Providers/Chief Complaint Admitting Physician: Alisa Metzger MD Primary Care Provider: Mervat Nguyen Chief Complaint: N/V, UTI History of Present Illness Ana Lilia Miller is a 54 year old female who presented today from home, multiple comorbidities, multiple admissions due to symptomatic A. fib RVR, chronic anticoagulation with Eliquis on hold due to vaginal bleed, oxygen dependent COPD uses 3 L, noncompliant with her CPAP for sleep apnea came in today with chief complaint of urinary tract infection with burning in the vaginal area who reportedly was on abx recently but then developed thrush and decided to present to the hospital for UTI. Labs notable for blood sugar >100, AG 19, pseudohyponatremia and vulvovaginal and oropharyngeal candidiasis. Laso with A fib RVR with HR 160s. has not taken any medicatons in at least one week due to nausea, vomiting and odynophagia . Review of Systems General: Reports: 10 or more systems reviewed and unremarkable except in HPI and below Const: Denies: fever(s), chills or body aches Eyes: Denies: change in vision, blurry vision or photophobia ENMT: Reports: hoarseness; Denies: throat pain, enlarged tonsils, odynophagia or nasal congestion Card: Denies: chest pain, palpitations, irregular heart rhythm, edema, swelling of feet/ankles, lightheadedness, pre-syncope, dyspnea on exertion or orthopnea Resp: Denies: dyspnea, productive cough, non-productive cough, wheezing, stridor, pain on inspiration, change in phlegm color, hemoptysis or chest congestion GI: Denies: abdominal pain, nausea, vomiting, hematemesis, coffee ground emesis, dysphagia, heartburn, diarrhea, constipation, GI cramping, change in stool character, hematochezia or melena : Denies: flank pain, difficulty voiding, dysuria, urinary frequency, urinary urgency, urinary hesitancy or hematuria Musc: Denies: neck pain, back pain, extremity pain, joint swelling, joint warmth or deformity Neuro: Denies: headache(s), numbness in extremities, weakness in extremities, sensory changes, difficulty walking, frequent falls, dizziness, vertigo, behavioral changes, Slurred speech present or seizure-like activity Psych: Denies: anxiety, depression, suicidal ideation or homicidal ideation Endo: Denies: polyuria, polydipsia, tired all the time, cold intolerance or hot flashes Leonid/Lymph: Denies: easy bruising or easy bleeding Medications/Allergies Home Medications Medication Instructions Recorded Confirmed Last Taken Type glipizide 2.5 mg PO DAILY 07/25/19 02/06/20 02/05/20 History nystatin-triamcinolone 1 applic TOPICAL BID #30 gm 07/25/19 02/06/20 08/06/19 08:00 Rx diclofenac sodium 4 g TOPICAL QID PRN 08/07/19 02/06/20 11/08/19 History isosorbide mononitrate 30 mg PO DAILY #30 tab 08/09/19 02/06/20 02/05/20 Rx sumatriptan succinate [Imitrex] 25 mg PO Q6H PRN #0 tab 08/09/19 02/06/20 07/24/19 10:00 Rx gabapentin 300 mg capsule 300 mg PO TID 10/05/19 02/06/20 02/05/20 History ondansetron HCl [Zofran] 4 mg PO Q6H PRN 11/09/19 02/06/20 02/06/20 History apixaban [Eliquis] 5 mg PO BID #30 tab 11/11/19 02/06/20 02/05/20 Rx diltiazem HCl [Cartia XT] 120 mg PO DAILY #30 cap 11/11/19 02/06/20 02/05/20 Rx furosemide 40 mg PO BIDWM #60 tab 11/11/19 02/06/20 02/05/20 Rx metoprolol tartrate 25 mg PO BID #30 tab 11/11/19 02/06/20 02/05/20 Rx aripiprazole 5 mg tablet 5 mg PO .morning #90 tab 12/26/19 02/06/20 02/05/20 Rx bupropion HCl 200 mg tablet,12 hr 200 mg PO .morning #90 tab 12/26/19 02/06/20 02/05/20 Rx sustained-release hydroxyzine pamoate 25 mg capsule 25 mg PO TID PRN #270 cap 12/26/19 02/06/20 02/05/20 Rx sertraline 100 mg tablet 100 mg PO .morning #90 tab 12/26/19 02/06/20 02/05/20 Rx hydrocodone-acetaminophen 1 tab PO Q8H PRN 02/06/20 02/06/20 02/05/20 History Allergies Allergy/AdvReac Type Severity Reaction Status Date / Time Tetracyclines Allergy Severe ALGY-Anaphy Verified 07/19/19 22:35 laxis wool Allergy Intermediate ALGY-Hives Verified 07/19/19 22:35 adhesive AdvReac Unknown Verified 07/19/19 22:35 Artificial Sweetners AdvReac Intermediate ADR-Headach Uncoded 07/20/19 04:24 e PFSH Acute PFSH: Medical History Atrial fibrillation Chronic anticoagulation On hold due to vaginal bleeding Chronic kidney disease, stage III (moderate) Cr has ranged 1.6-2.1 since 11/27 Congestive heart failure COPD (chronic obstructive pulmonary disease) Diabetes mellitus type 2, noninsulin dependent last A1c in 03/30 was 7.4 Generalized anxiety disorder Hoarding disorder with excessive acquisition Hypertension Hypothyroidism last TSH in 03/30 was 6.18 Major depressive disorder, recurrent severe without psychotic features Morbid obesity with BMI of 60.0-69.9, adult DELMIS (obstructive sleep apnea) Reports not currently compliant with therapy due to contaminated machine Oxygen dependent Vaginal bleeding Surgical History History of dental surgery Status post biopsy of skin Family History Other Chronic kidney disease (CKD) Diabetes Hypertension Thyroid disease Social History Smoking and tobacco status: former smoker Alcohol intake: never Vitals/I&O/Wt Last Vital Signs Temp 98.7 F 02/06/20 14:24 Pulse 137 H 02/06/20 17:28 Resp 21 H 02/06/20 16:56 BP 110/67 02/06/20 16:56 Pulse Ox 95 02/06/20 17:28 02/06/20 02/06/20 02/06/20 06:59 14:59 22:59 Intake Total 10.115 / 10.115 Balance 10.115 / 10.115 Weight last 48 hrs Weight 181.437 kg Physical Exam Narrative: EXAM NARRATIVE: GEN: Awake, alert and oriented, no acute distress, anxious, tearful HEENT: unkempt, NC/AT, PERRLA, orophatyngeal candidiasis CVS: S1S2 N RS: CTA B/L Abd: Soft, nt/nd , bs+ 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 genitilia: significant vulvolvaginal candidisis and intertrigo Data : 02/06/20 14:39 02/06/20 16:39 Micro: Microbiology 02/06/20 15:00 Blood Culture - Preliminary Blood SPECIMEN COLLECTED 02/06/20 14:39 Blood Culture - Preliminary Blood SPECIMEN COLLECTED A&P Assessment and plan (1) Atrial fibrillation with RVR: Status: Acute (2) Chronic kidney disease, stage III (moderate): Status: Acute (3) Diabetes mellitus type 2, noninsulin dependent: Status: Acute (4) DELMIS (obstructive sleep apnea): Status: Acute (5) Generalized anxiety disorder: Status: Chronic (6) Diabetes mellitus with hyperosmolarity without hyperglycemic hyperosmolar nonketotic coma: Status: Acute (7) Hyponatremia: Status: Acute Additional A&P Information Admit to ICU # hyperglecemic hyperosmolar non ketotic state with BS > 1000, no aletration in mentation Started in insulin drip continue infusion per protocol Anion gap when checked with corrected sodium is ~40, continue insulin infusion until gap closes Then will overlap with S/c insulin Fluids to be NS with additional K for now When glucose less than 250, switch to d5NS secondary to medication non complainace most likely, has nottaken any pills in one week check hba1c # Pseudohyponatremia corrected sodium is 138 # Vulvovaginal and orophayngeal candidisis, cannot exclude ezra esophagitis, likely 2/2 poor glycemic control start fluconazole 200mg x 1 f/b 100mg po qd x 10 days # A fib with RVR Starte don cardizem drip, overlap with home doses of po cardizem and metoprolol On eliquis currently Full code DVT ppx: lovenox Attestations Medical Necessity Statement*: expected to cross > 2 midnight for management of above issues Coding Level of Care Code Acute Shaft Tender for [facility] Fwd Diagnoses Atrial fibrillation with RVR I48.91 Chronic kidney disease, stage III (moderate) N18.3 Diabetes mellitus type 2, noninsulin dependent E11.9 DELMIS (obstructive sleep apnea) G47.33 Generalized anxiety disorder F41.1 Diabetes mellitus with hyperosmolarity without hyperglycemic hyperosmolar nonketotic coma E11.00 Hyponatremia E87.1
[2020-02-06 18:21] LABS: Alanine Aminotransferase 7 U/L (0-33); Albumin Level 3.7 g/dL (3.5-5.2); Alkaline Phosphatase 115 IU/L (35-105); Anion Gap 22.4 (5-19); Aspartate Amino Transferase 10 U/L (0-32); Blood Urea Nitrogen 15 mg/dL (6-20); Carbon Dioxide 19 mmol/L (22-29); Chloride 80 mmol/L (98-107); Globulin 2.9 g/dL (1.3-4.6); Glomerular Filtration Rate 27.5 mL/min (90-130); Potassium 3.4 mmol/L (3.5-5.1); Total Bilirubin 0.9 mg/dL (0.15-1.2); Total Protein 6.6 g/dL (6.6-8.7)
[2020-02-06 18:29] LABS: Osmolality Calculated 287 mOsm/kg (285-295)
[2020-02-06 18:32] LABS: Glucose 896 mg/dL (65-115); Sodium 118 mmol/L (136-145)
[2020-02-06 18:49] LABS: Glucose Point of Care > 600 mg/dL (70-110)
[2020-02-06 19:25] LABS: Chol HDL Ratio 5.55 mg/dL (0.0-4.40); Cholesterol 183 mg/dL (0-200); HDL Cholesterol 33 mg/dL (60-100); LDL Cholesterol Calculated 87 mg/dL (50-129); LDL HDL Ratio 2.64 RATIO (0.00-3.22); Triglycerides 315 mg/dL (0-150)
[2020-02-06 19:26] LABS: Glucose 655 mg/dL (65-115)
[2020-02-06 19:56] LABS: Estmated Average Glucose 579; Hemoglobin A1C 21.8 % (4.0-6.0)
[2020-02-06] MEDS: fluconazole premix 200 MG/100 ML PREMIX 100 MG IV (20:48)
[2020-02-06] MEDS: gabapentin 300 mg Capsule PO (20:49)
[2020-02-06 21:01] LABS: Glucose Point of Care 421 mg/dL (70-110)
[2020-02-06 21:04] LABS: Alanine Aminotransferase 10 U/L (0-33); Albumin Level 3.9 g/dL (3.5-5.2); Alkaline Phosphatase 118 IU/L (35-105); Anion Gap 19.1 (5-19); Aspartate Amino Transferase 9 U/L (0-32); Blood Urea Nitrogen 16 mg/dL (6-20); Calcium 9.5 mg/dL (8.5-10.5); Carbon Dioxide 24 mmol/L (22-29); Chloride 85 mmol/L (98-107); Globulin 3.1 g/dL (1.3-4.6); Glucose 444 mg/dL (65-115); Osmolality Calculated 276 mOsm/kg (285-295); Potassium 3.1 mmol/L (3.5-5.1); Sodium 125 mmol/L (136-145); Total Bilirubin 0.7 mg/dL (0.15-1.2)
[2020-02-06] MEDS: sodium chlor 0.9% + KCl 40 mEq 40 MEQ/1,000 ML BAG 125 MEQ IV (21:44)
[2020-02-06 21:55] LABS: Glucose Point of Care 382 mg/dL (70-110)
[2020-02-06 22:44] LABS: Glucose Point of Care 384 mg/dL (70-110)
[2020-02-06] MEDS: insulin glargine 100 units/1 mL 20 UNIT SUBCUT (23:27)
[2020-02-06 23:33] LABS: Glucose Point of Care 467 mg/dL (70-110)
[2020-02-07] VITALS (25 sets, daily range): BP systolic 92–151; BP diastolic 52–101; PULSE 77–128; RESP 14–22; TEMP 36.5–36.9; O2SAT 93–98
[2020-02-07 00:33] LABS: Glucose Point of Care 486 mg/dL (70-110)
[2020-02-07 01:38] LABS: Glucose Point of Care 461 mg/dL (70-110)
[2020-02-07 02:33] LABS: Alanine Aminotransferase 9 U/L (0-33); Albumin Level 3.3 g/dL (3.5-5.2); Alkaline Phosphatase 98 IU/L (35-105); Anion Gap 14.2 (5-19); Aspartate Amino Transferase 9 U/L (0-32); Blood Urea Nitrogen 19 mg/dL (6-20); Calcium 8.1 mg/dL (8.5-10.5); Carbon Dioxide 24 mmol/L (22-29); Chloride 90 mmol/L (98-107); Globulin 3.1 g/dL (1.3-4.6); Glomerular Filtration Rate 23.3 mL/min (90-130); Osmolality Calculated 279 mOsm/kg (285-295); Potassium 3.2 mmol/L (3.5-5.1); Sodium 125 mmol/L (136-145); Total Bilirubin 0.5 mg/dL (0.15-1.2); Total Protein 6.4 g/dL (6.6-8.7)
[2020-02-07 02:38] LABS: Glucose 512 mg/dL (65-115)
[2020-02-07 02:47] LABS: Basophils # 0.1 10^3/uL (0.0-0.1); Basophils % 0.5 %; Eosinophils # 0.2 10^3/uL (0.0-0.8); Eosinophils % 1.6 %; Hematocrit 40.6 % (37.0-47.0); Hemoglobin 12.3 g/dL (11.5-15.3); Lymphocytes # 1.2 10^3/uL (0.8-4.8); Lymphocytes % 8.8 %; Mean Corpuscular HGB Conc 30.3 g/dL (30.0-36.0); Mean Corpuscular Hemoglobin 23.4 pg (28.0-34.0); Mean Corpuscular Volume 77.2 fL (81-99); Mean Platelet Volume 11.7 fL (7.4-10.4); Monocytes # 0.7 10^3/uL (0.2-0.9); Monocytes % 5.3 %; Neutrophils # 10.94 10^3/uL (1.8-7.7); Neutrophils % 83.2 %; Nucleated Red Blood Cells % 0 %; Platelet Count 249 10^3/cmm (130-400); Red Blood Count 5.26 10^6/uL (4.1-5.3); Red Cell Distribution Width 18.6 % (12.1-15.1); White Blood Count 13.2 10^3/uL (4.0-10.0)
[2020-02-07 04:35] LABS: Glucose Point of Care 455 mg/dL (70-110)
[2020-02-07 04:35] LABS: Glucose Point of Care 438 mg/dL (70-110)
[2020-02-07 04:38] LABS: Glucose Point of Care 402 mg/dL (70-110)
[2020-02-07 05:36] LABS: Alanine Aminotransferase 9 U/L (0-33); Albumin Level 3.6 g/dL (3.5-5.2); Alkaline Phosphatase 111 IU/L (35-105); Anion Gap 16.4 (5-19); Aspartate Amino Transferase 10 U/L (0-32); Blood Urea Nitrogen 20 mg/dL (6-20); Carbon Dioxide 23 mmol/L (22-29); Chloride 93 mmol/L (98-107); Glomerular Filtration Rate 20.1 mL/min (90-130); Glucose 387 mg/dL (65-115); Osmolality Calculated 281 mOsm/kg (285-295); Potassium 3.4 mmol/L (3.5-5.1); Sodium 129 mmol/L (136-145); Total Bilirubin 0.5 mg/dL (0.15-1.2); Total Protein 6.6 g/dL (6.6-8.7)
[2020-02-07 05:40] LABS: Glucose Point of Care 317 mg/dL (70-110)
[2020-02-07] MEDS: sodium chlor 0.9% + KCl 40 mEq 40 MEQ/1,000 ML BAG 125 MEQ IV (06:25)
[2020-02-07 06:31] LABS: Glucose Point of Care 254 mg/dL (70-110)
--- NOTE | 2020-02-07 06:37 | PC.NURSE ---
Dr. Chang updated throughout shift re: lab abnormalities, orders received, patient updated.
[2020-02-07 08:12] LABS: Glucose Point of Care 232 mg/dL (70-110)
[2020-02-07] MEDS: fluconazole 100 mg Tablet PO (08:43)
[2020-02-07] MEDS: apixaban 5 mg Tablet PO ×2 (08:43→17:20)
[2020-02-07] MEDS: buPROPion SR (12 HR) 100 mg Tablet 200 MG PO (08:43)
[2020-02-07] MEDS: ARIPiprazole 10 mg Tablet 5 MG PO (08:43)
[2020-02-07] MEDS: sertraline 100 mg Tablet PO (08:44)
[2020-02-07] MEDS: metoprolol tartrate 25 mg Tablet PO ×2 (08:44→17:20)
[2020-02-07] MEDS: dilTIAZem ER (24HR) 120 mg Capsule PO (08:44)
[2020-02-07] MEDS: gabapentin 300 mg Capsule PO ×3 (08:44→21:48)
[2020-02-07] MEDS: clotrimazole 1% cream 30 gm 1 APPLIC TOPICAL ×2 (08:45→17:20)
[2020-02-07 09:00] LABS: Glucose Point of Care 193 mg/dL (70-110)
[2020-02-07] MEDS: isosorbide mononitrate ER 30 mg Tablet PO (09:46)
[2020-02-07 09:52] LABS: Alanine Aminotransferase 8 U/L (0-33); Albumin Level 3.3 g/dL (3.5-5.2); Alkaline Phosphatase 99 IU/L (35-105); Anion Gap 15.3 (5-19); Aspartate Amino Transferase 11 U/L (0-32); Blood Urea Nitrogen 21 mg/dL (6-20); Calcium 9.1 mg/dL (8.5-10.5); Carbon Dioxide 23 mmol/L (22-29); Chloride 95 mmol/L (98-107); Globulin 2.7 g/dL (1.3-4.6); Glomerular Filtration Rate 19.2 mL/min (90-130); Glucose 181 mg/dL (65-115); Osmolality Calculated 271 mOsm/kg (285-295); Potassium 3.3 mmol/L (3.5-5.1); Sodium 130 mmol/L (136-145); Total Bilirubin 0.5 mg/dL (0.15-1.2)
--- NOTE | 2020-02-07 11:21 | PM.PN ---
Subjective Subjective: Interval history: Improved today, no acute events, anion gap closed, Na improving, K at 3.3, switched over to s/c insulin, received lantus overnight. Continues to be in A fib, rate controleld today, cardizem drip turned off Medications: Reviewed: Yes Vitals/I&O/Wt Last Vital Signs Temp 97.7 F 02/07/20 07:00 Pulse 77 02/07/20 10:00 Resp 16 02/07/20 10:00 BP 95/74 02/07/20 10:00 Pulse Ox 97 02/07/20 10:00 02/06/20 02/07/20 02/07/20 22:59 06:59 14:59 Intake Total 89.379 / 89.379 1890.951 / 1980.330 Output Total 1300 / 1300 Balance 89.379 / 89.379 590.951 / 680.330 Weight last 48 hrs Weight 181.437 kg Physical Exam Narrative: EXAM NARRATIVE: GEN: Awake, alert and oriented, no acute distress, lying comfortably at home CVS: S1S2 N RS: CTA B/L Abd: Soft, nt/nd , bs+ 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: no focal neuro deficits Data : 02/07/20 01:50 02/07/20 09:26 Micro: Microbiology 02/06/20 15:00 Blood Culture - Preliminary Blood SPECIMEN COLLECTED 02/06/20 14:39 Blood Culture - Preliminary Blood SPECIMEN COLLECTED A&P Assessment and plan (1) Atrial fibrillation with RVR: Status: Acute (2) Chronic kidney disease, stage III (moderate): Status: Acute (3) Diabetes mellitus type 2, noninsulin dependent: Status: Acute (4) DELMIS (obstructive sleep apnea): Status: Acute (5) Generalized anxiety disorder: Status: Chronic (6) Diabetes mellitus with hyperosmolarity without hyperglycemic hyperosmolar nonketotic coma: Status: Acute (7) Hyponatremia: Status: Acute Additional A&P Information # hyperglecemic hyperosmolar non ketotic state with BS > 1000, no alteration in mentation - Discontinued insulin drip overnight, transitioned to s/c insulin overnight - Anion gap closed - start po diet - supplement po potassium # Pseudohyponatremia Now improving # Vulvovaginal and orophayngeal candidisis, cannot exclude ezra esophagitis, likely 2/2 poor glycemic control start fluconazole 200mg x 1 f/b 100mg po qd x 10 days # A fib with RVR Cardizem infusion discontinued now, on overlap with po cardizem and po metoprolol at home dosing. Full code DVT ppx: lovenox Attestations Medical Necessity Statement*: needs ongoing monitoring for close fingersticks, transition off insulin drip Coding Level of Care Code Acute [facility] Counselor for g Fwd Diagnoses Atrial fibrillation with RVR I48.91 Chronic kidney disease, stage III (moderate) N18.3 Diabetes mellitus type 2, noninsulin dependent E11.9 DELMIS (obstructive sleep apnea) G47.33 Generalized anxiety disorder F41.1 Diabetes mellitus with hyperosmolarity without hyperglycemic hyperosmolar nonketotic coma E11.00 Hyponatremia E87.1
[2020-02-07 12:48] LABS: Glucose Point of Care 156 mg/dL (70-110)
[2020-02-07 12:48] LABS: Glucose Point of Care 166 mg/dL (70-110)
[2020-02-07 12:48] LABS: Glucose Point of Care 161 mg/dL (70-110)
--- NOTE | 2020-02-07 12:48 | PC.RESP ---
PULMONARY REHAB INFORMATION SENT TO PATIENT.
[2020-02-07] MEDS: sodium chlor 0.9% + KCl 40 mEq 40 MEQ/1,000 ML BAG 75 MEQ IV (15:19)
[2020-02-07 16:49] LABS: Glucose Point of Care 421 mg/dL (70-110)
[2020-02-07] MEDS: HYDROcodone-acetaminophen 10-325 mg Tablet 1 TAB PO (21:48)
[2020-02-07 21:49] LABS: Glucose Point of Care 443 mg/dL (70-110)
[2020-02-07] MEDS: insulin glargine 100 units/1 mL 20 UNIT SUBCUT (21:49)
[2020-02-08] VITALS (16 sets, daily range): BP systolic 93–134; BP diastolic 61–98; PULSE 80–112; RESP 13–25; TEMP 36.2–37.4; O2SAT 90–98
[2020-02-08] MEDS: sodium chlor 0.9% + KCl 40 mEq 40 MEQ/1,000 ML BAG 75 MEQ IV ×2 (03:58→16:28)
[2020-02-08 07:49] LABS: Glucose Point of Care 444 mg/dL (70-110)
[2020-02-08] MEDS: ARIPiprazole 10 mg Tablet 5 MG PO (08:34)
[2020-02-08] MEDS: metoprolol tartrate 25 mg Tablet PO ×2 (08:34→17:39)
[2020-02-08] MEDS: gabapentin 300 mg Capsule PO ×3 (08:35→21:19)
[2020-02-08] MEDS: apixaban 5 mg Tablet PO ×2 (08:35→17:39)
[2020-02-08] MEDS: HYDROcodone-acetaminophen 10-325 mg Tablet 1 TAB PO ×2 (08:35→17:40)
[2020-02-08] MEDS: dilTIAZem ER (24HR) 120 mg Capsule PO (08:35)
[2020-02-08] MEDS: fluconazole 100 mg Tablet PO (08:35)
[2020-02-08] MEDS: isosorbide mononitrate ER 30 mg Tablet PO (08:35)
[2020-02-08] MEDS: SUMAtriptan 25 mg Tablet PO (08:35)
[2020-02-08] MEDS: diclofenac 1% Topical Gel 100 gm 1 APPLIC TOPICAL (08:36)
[2020-02-08] MEDS: sertraline 100 mg Tablet PO (08:36)
[2020-02-08 10:06] LABS: Basophils # 0.1 10^3/uL (0.0-0.1); Basophils % 0.5 %; Eosinophils # 0.3 10^3/uL (0.0-0.8); Eosinophils % 2.6 %; Hematocrit 41.1 % (37.0-47.0); Lymphocytes # 1.3 10^3/uL (0.8-4.8); Lymphocytes % 9.9 %; Mean Corpuscular HGB Conc 29.2 g/dL (30.0-36.0); Mean Corpuscular Hemoglobin 24.1 pg (28.0-34.0); Mean Corpuscular Volume 82.5 fL (81-99); Mean Platelet Volume 11.6 fL (7.4-10.4); Monocytes # 0.7 10^3/uL (0.2-0.9); Monocytes % 5.5 %; Neutrophils # 10.51 10^3/uL (1.8-7.7); Neutrophils % 80.8 %; Nucleated Red Blood Cells % 0 %; Platelet Count 255 10^3/cmm (130-400); Red Blood Count 4.98 10^6/uL (4.1-5.3); Red Cell Distribution Width 19.7 % (12.1-15.1)
[2020-02-08 10:24] LABS: Alanine Aminotransferase 13 U/L (0-33); Albumin Level 3.4 g/dL (3.5-5.2); Alkaline Phosphatase 94 IU/L (35-105); Anion Gap 15.1 (5-19); Aspartate Amino Transferase 16 U/L (0-32); Blood Urea Nitrogen 31 mg/dL (6-20); Calcium 8.2 mg/dL (8.5-10.5); Carbon Dioxide 20 mmol/L (22-29); Chloride 92 mmol/L (98-107); Glomerular Filtration Rate 16.9 mL/min (90-130); Osmolality Calculated 276 mOsm/kg (285-295); Potassium 4.1 mmol/L (3.5-5.1); Sodium 123 mmol/L (136-145); Total Bilirubin 0.8 mg/dL (0.15-1.2); Total Protein 6.4 g/dL (6.6-8.7)
[2020-02-08 10:35] LABS: Glucose 514 mg/dL (65-115)
[2020-02-08] MEDS: clotrimazole 1% cream 30 gm 1 APPLIC TOPICAL ×2 (10:47→17:38)
[2020-02-08] MEDS: buPROPion SR (12 HR) 100 mg Tablet 200 MG PO (10:58)
--- NOTE | 2020-02-08 10:59 | P.PN_ITS ---
Subjective Subjective: Interval history: Transferred out of ICU, sustained a fall while being transferred from bed to chair due to deconditioing. Tmax 99.4, FS continue to be in 400-500s, anion gap remains closed at this time. 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: no focal neuro deficits Data : 02/08/20 09:52 02/08/20 09:52 Micro: Microbiology 02/06/20 15:00 Blood Culture - Preliminary Blood NEGATIVE TO DATE 02/06/20 14:39 Blood Culture - Preliminary Blood NEGATIVE TO DATE A&P Assessment and plan (1) Atrial fibrillation with RVR: Status: Acute (2) Chronic kidney disease, stage III (moderate): Status: Acute (3) Diabetes mellitus type 2, noninsulin dependent: Status: Acute (4) DELMIS (obstructive sleep apnea): Status: Acute (5) Generalized anxiety disorder: Status: Chronic (6) Diabetes mellitus with hyperosmolarity without hyperglycemic hyperosmolar nonketotic coma: Status: Acute (7) Hyponatremia: Status: Acute Additional A&P Information # hyperglecemic hyperosmolar non ketotic state with BS > 1000, no alteration in mentation -Anion gap closed, off insulin drip since yesetrday, blood sugar control remains suboptimal, HbA1c noted to be at 21. Currently at Lantus 20 units daily along with medium insulin sliding scale. Change sliding scale to high-dose insulin sliding scale and increase Lantus to 40 units at nighttime. Will readjust based on 24 hr requirements Tolerating po diet though appetite remains poor # Pseudohyponatremia Corrected sodium at 130 today # Vulvovaginal and orophayngeal candidisis, cannot exclude ezra esophagitis, likely 2/2 poor glycemic control Continue fluconazole 100mg po BID x 10 days # A fib with RVR, HR intermittently >100, incrase cardizem to 180mg po qd from 120 mg qd DVT ppx: lovenox Attestations Medical Necessity Statement*: need for glycemic control, BS consistently >400s Coding Level of Care Code Acute Time Study Engineer for [facility] Fwd Diagnoses Atrial fibrillation with RVR I48.91 Chronic kidney disease, stage III (moderate) N18.3 Diabetes mellitus type 2, noninsulin dependent E11.9 DELMIS (obstructive sleep apnea) G47.33 Generalized anxiety disorder F41.1 Diabetes mellitus with hyperosmolarity without hyperglycemic hyperosmolar nonketotic coma E11.00 Hyponatremia E87.1
--- NOTE | 2020-02-08 11:05 | PC.NURSE ---
PATIENTS BLOOD SUGAR REMAINS HIGH, DR JOSHUA NOTIFIED OF PATIENTS INSULIN NEEDS, HIGHER NOVOLOG INSULIN DOSE ARRANGED. PATIENT WAS INFORMED OF HER A1C AND WHAT THAT MEANT THAT HER SUGARS HAVE BEEN VERY HIGH FOR SEVERAL MONTHS. ANTICIPATE THAT SHE MAY GO HOME ON SOME FORM OF INSULIN. 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 SKIN CARE GIVEN COMPETE WITH OPEN LEG POSITION AND FAN DIRECTED ON HER PANUS /VAGINA AREA. HER THROAT HURT TO EAT TOAST OR CRACKERS DUE TO THE TENDERNESS. CREAM OF WHEAT ORDERED 3X FOR HER BEFORE IT CAME. PATIENT NEEDS DIET INSTRUCTION ESPECIALLY SINCE SHE SAYS DIET SUGARS EVEN [facility]EVIA GIVES HER MIGRAINES. BOTH THE MEDIUM AND HIGH INSULIN SCALES WERE ON MY MAR AND DID NOT GIVE THE MEDIUM DOSE THE HIGH WAS AVAILABLE. DR JOSHUA NOTICED THIS AND AGREED I SHOULD NOT GIVE BOTH JUST THE HIGH DOSE.
[2020-02-08 12:02] LABS: Glucose Point of Care 440 mg/dL (70-110)
--- NOTE | 2020-02-08 15:01 | PC.NURSE ---
DR HAYES NOTIFIED OF PT FALL. PT DID NOT HIT HER HEAD BUT DOES C/O RIGHT SHOULDER/KNEE PAIN. TEARFUL AT TIMES BUT THEN WILL LAUGH EMBARRASSED THAT SHE FELL. HOVER MAT USED TO GET UP OUT OF FLOOR
[2020-02-08 16:42] LABS: Glucose Point of Care 445 mg/dL (70-110)
[2020-02-08 21:03] LABS: Glucose Point of Care 354 mg/dL (70-110)
[2020-02-08] MEDS: insulin glargine 100 units/1 mL 40 UNIT SUBCUT (21:21)
[2020-02-09] VITALS (7 sets, daily range): BP systolic 106–108; BP diastolic 54–72; PULSE 68–112; RESP 18–22; TEMP 36.5–37.2; O2SAT 95–98
[2020-02-09 00:13] LABS: Glucose Point of Care 351 mg/dL (70-110)
[2020-02-09] MEDS: sodium chlor 0.9% + KCl 40 mEq 40 MEQ/1,000 ML BAG 75 MEQ IV (05:28)
[2020-02-09 05:34] LABS: Basophils # 0.1 10^3/uL (0.0-0.1); Basophils % 0.6 %; Eosinophils # 0.4 10^3/uL (0.0-0.8); Eosinophils % 3.8 %; Hematocrit 38.2 % (37.0-47.0); Hemoglobin 11.6 g/dL (11.5-15.3); Lymphocytes # 1.2 10^3/uL (0.8-4.8); Mean Corpuscular HGB Conc 30.4 g/dL (30.0-36.0); Mean Corpuscular Hemoglobin 24.6 pg (28.0-34.0); Mean Corpuscular Volume 81.1 fL (81-99); Mean Platelet Volume 11.7 fL (7.4-10.4); Monocytes # 0.7 10^3/uL (0.2-0.9); Neutrophils # 7.72 10^3/uL (1.8-7.7); Neutrophils % 75.6 %; Nucleated Red Blood Cells % 0 %; Platelet Count 177 10^3/cmm (130-400); Red Blood Count 4.71 10^6/uL (4.1-5.3); Red Cell Distribution Width 19.8 % (12.1-15.1); White Blood Count 10.2 10^3/uL (4.0-10.0)
[2020-02-09 05:35] LABS: Alanine Aminotransferase 15 U/L (0-33); Albumin Level 3.5 g/dL (3.5-5.2); Alkaline Phosphatase 94 IU/L (35-105); Blood Urea Nitrogen 36 mg/dL (6-20); Calcium 8.2 mg/dL (8.5-10.5); Carbon Dioxide 18 mmol/L (22-29); Chloride 96 mmol/L (98-107); Globulin 2.6 g/dL (1.3-4.6); Glomerular Filtration Rate 16.3 mL/min (90-130); Glucose 401 mg/dL (65-115); Osmolality Calculated 278 mOsm/kg (285-295); Sodium 127 mmol/L (136-145); Total Bilirubin 0.6 mg/dL (0.15-1.2); Total Protein 6.1 g/dL (6.6-8.7)
[2020-02-09 05:52] LABS: Slide Review Slide Review Perform
[2020-02-09 05:54] LABS: Anion Gap 17.8 (5-19); Aspartate Amino Transferase 17 U/L (0-32); Potassium 4.8 mmol/L (3.5-5.1)
--- NOTE | 2020-02-09 07:00 | XRR_ITS ---
PROCEDURE INFORMATION: Exam: XR Chest, 1 View Exam date and time: 02/09/2020 5:23 AM Age: 54 years old Clinical indication: Condition or disease; Lung condition and disease; Pneumonia; Other: Not specified; Additional info: Evalute pneumonia TECHNIQUE: Imaging protocol: XR of the chest Views: 1 view. COMPARISON: CR XR chest 1V portable [id number] 02/06/2020 3:41 PM FINDINGS: Lungs: Lungs are well aerated without a focal area of consolidation. Pleural space: Unremarkable. No pleural effusion. No pneumothorax. Heart/Mediastinum: The cardiac silhouette appears enlarged, some of which is magnification related to the AP projection. Bones/joints: Unremarkable. XR/XR chest 1V portable [id number] IMPRESSION: Lungs are well aerated without a focal area of consolidation.
[2020-02-09 07:01] LABS: Glucose Point of Care 406 mg/dL (70-110)
[2020-02-09] MEDS: dilTIAZem ER (24HR) 180 mg Capsule PO (08:37)
[2020-02-09] MEDS: fluconazole 100 mg Tablet PO (08:37)
[2020-02-09] MEDS: ARIPiprazole 10 mg Tablet 5 MG PO (08:38)
[2020-02-09] MEDS: sertraline 100 mg Tablet PO (08:38)
[2020-02-09] MEDS: metoprolol tartrate 25 mg Tablet PO ×2 (08:38→17:45)
[2020-02-09] MEDS: isosorbide mononitrate ER 30 mg Tablet PO (08:38)
[2020-02-09] MEDS: gabapentin 300 mg Capsule PO ×3 (08:38→20:56)
[2020-02-09] MEDS: apixaban 5 mg Tablet PO ×2 (08:38→17:44)
[2020-02-09] MEDS: buPROPion SR (12 HR) 100 mg Tablet 200 MG PO (08:38)
--- NOTE | 2020-02-09 10:00 | PC.SOCIAL ---
IMM Page 2 of IMM explained to patient. Initialed, dated, and timed and placed in chart. Copy provided to patient.
[2020-02-09 10:41] LABS: Glucose Point of Care 455 mg/dL (70-110)
[2020-02-09] MEDS: HYDROcodone-acetaminophen 10-325 mg Tablet 1 TAB PO (11:47)
--- NOTE | 2020-02-09 13:07 | P.PN_ITS ---
Subjective Subjective: Interval history: symtpomatically improving, working with PT, Sitting at side of bed, self feeding, BS continues ot be ~400s. Cr trended up mildly to 3 today. 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 Data : 02/09/20 04:15 02/09/20 04:15 Micro: Microbiology 02/06/20 14:00 Wet Prep - Final Vaginal A&P Assessment and plan (1) Atrial fibrillation with RVR: Status: Acute (2) Chronic kidney disease, stage III (moderate): Status: Acute (3) Diabetes mellitus type 2, noninsulin dependent: Status: Acute (4) DELMIS (obstructive sleep apnea): Status: Acute (5) Generalized anxiety disorder: Status: Chronic (6) Diabetes mellitus with hyperosmolarity without hyperglycemic hyperosmolar nonketotic coma: Status: Acute (7) Hyponatremia: Status: Acute Additional A&P Information # hyperglecemic hyperosmolar non ketotic state with BS > 1000, no alteration in mentation , now resolved -Anion gap closed, required insulin dri[ upon presentation, blood sugar control remains suboptimal, HbA1c noted to be at 21. Currently at Lantus 40 units daily along with high dose sliding scale. Currently requires 110 units of insulin over 24 hrs Increase Lantus to 60 units, start 20 units pre meal standing insulin Tolerating po diet though appetite remains poor # Pseudohyponatremia Corrected sodium at 130 today # Vulvovaginal and orophayngeal candidisis, cannot exclude ezra esophagitis, likely 2/2 poor glycemic control Continue fluconazole 100mg po BID x 10 days # A fib with RVR, Better controlled now, continue cardizem 180mg po qd. Also on home dose of metoprolol. continue eliquis # COPD without acute exacerbation: Currently on 4 L nasal cannula Duoneb Q6h prn, hold off on steroids for now. 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
[2020-02-09] MEDS: FUROsemide 40 mg Tablet PO (16:30)
[2020-02-09 16:35] LABS: Glucose Point of Care 415 mg/dL (70-110)
[2020-02-09 20:57] LABS: Glucose Point of Care 455 mg/dL (70-110)
[2020-02-09] MEDS: insulin glargine 100 units/1 mL 60 UNIT SUBCUT (21:10)
[2020-02-09 23:10] LABS: ABG PCO2 49.1 mmHg (35-45); ABG PH Result 7.21 (7.35-7.45); Arterial Blood Gas Hematocrit 35.6 % (37-47); Base Excess ABG -8.2 mmol/L (-2.0-2.0); Blood Gas Sample Site Brachial, right; Blood Gas Sample Type Arterial; HCO3 ABG 19.6 mmol/L (22-26); Oxygen Device NC; PO2 ABG 91.6 mmHg (80.0-100.0)
[2020-02-10] VITALS (7 sets, daily range): BP systolic 91–112; BP diastolic 59–74; PULSE 70–100; RESP 16–20; TEMP 36.6–37.4; O2SAT 92–97
[2020-02-10 02:38] LABS: Glucose Point of Care 441 mg/dL (70-110)
[2020-02-10] MEDS: HYDROcodone-acetaminophen 10-325 mg Tablet 1 TAB PO (03:35)
[2020-02-10 04:27] LABS: Basophils # 0.1 10^3/uL (0.0-0.1); Basophils % 0.5 %; Eosinophils # 0.2 10^3/uL (0.0-0.8); Eosinophils % 1.6 %; Hematocrit 37.7 % (37.0-47.0); Hemoglobin 10.7 g/dL (11.5-15.3); Lymphocytes # 0.8 10^3/uL (0.8-4.8); Lymphocytes % 5.3 %; Mean Corpuscular HGB Conc 28.4 g/dL (30.0-36.0); Mean Corpuscular Hemoglobin 23.8 pg (28.0-34.0); Mean Corpuscular Volume 83.8 fL (81-99); Mean Platelet Volume 12.2 fL (7.4-10.4); Monocytes # 0.8 10^3/uL (0.2-0.9); Monocytes % 5.7 %; Neutrophils # 12.54 10^3/uL (1.8-7.7); Neutrophils % 85.9 %; Nucleated Red Blood Cells % 0 %; Platelet Count 224 10^3/cmm (130-400); Red Cell Distribution Width 19.9 % (12.1-15.1); White Blood Count 14.6 10^3/uL (4.0-10.0)
[2020-02-10 04:54] LABS: Alanine Aminotransferase 18 U/L (0-33); Albumin Level 3.3 g/dL (3.5-5.2); Alkaline Phosphatase 94 IU/L (35-105); Aspartate Amino Transferase 12 U/L (0-32); Blood Urea Nitrogen 39 mg/dL (6-20); Calcium 8.2 mg/dL (8.5-10.5); Carbon Dioxide 19 mmol/L (22-29); Chloride 98 mmol/L (98-107); Globulin 3.1 g/dL (1.3-4.6); Glomerular Filtration Rate 15.7 mL/min (90-130); Glucose 442 mg/dL (65-115); Osmolality Calculated 279 mOsm/kg (285-295); Sodium 126 mmol/L (136-145); Total Bilirubin 0.7 mg/dL (0.15-1.2); Total Protein 6.4 g/dL (6.6-8.7)
[2020-02-10 07:27] LABS: Glucose Point of Care 391 mg/dL (70-110)
[2020-02-10] MEDS: FUROsemide 40 mg Tablet PO ×2 (08:42→16:23)
[2020-02-10] MEDS: dilTIAZem ER (24HR) 180 mg Capsule PO (08:42)
[2020-02-10] MEDS: buPROPion SR (12 HR) 100 mg Tablet 200 MG PO (08:42)
[2020-02-10] MEDS: sertraline 100 mg Tablet PO (08:42)
[2020-02-10] MEDS: isosorbide mononitrate ER 30 mg Tablet PO (08:42)
[2020-02-10] MEDS: ARIPiprazole 10 mg Tablet 5 MG PO (08:42)
[2020-02-10] MEDS: fluconazole 100 mg Tablet PO (08:42)
[2020-02-10] MEDS: gabapentin 300 mg Capsule PO ×3 (08:43→21:36)
[2020-02-10] MEDS: apixaban 5 mg Tablet PO ×2 (08:43→17:19)
[2020-02-10] MEDS: metoprolol tartrate 25 mg Tablet PO ×2 (08:43→17:19)
--- NOTE | 2020-02-10 09:48 | USR_ITS ---
PROCEDURE INFORMATION: Exam: US Retroperitoneal; Complete; Kidneys and Bladder Exam date and time: 02/10/2020 10:57 AM Age: 54 years old Clinical indication: Abnormal findings; Abnormal lab test; Abnormal kidney function lab tests; Additional info: Evalute for hydronephrosis TECHNIQUE: Imaging protocol: Real-time ultrasound of the retroperitoneum with image documentation. Complete exam focused on the kidneys and bladder. COMPARISON: US transvaginal [id number] 10/06/2017 10:41 AM FINDINGS: Size of both kidneys is normal. Echogenicity normal. No hydronephrosis. No mass. Right kidney: Right kidney 12.3 x 5.9 x 4.8 cm. Left kidney: Left kidney 10 x 3.9 x 3.1 cm. Bladder: Bladder was nondistended. Aorta not visualized. US/US renal BI with bladder IMPRESSION: Limited exam secondary to the body habitus. No appreciable hydronephrosis. Probable cortical thinning bilaterally.
--- NOTE | 2020-02-10 11:23 | PC.CHAP ---
Pastoral Care Encounter/Spiritual Assessment Type of Contact [] Declined conveyor line battery charger visit [] Patient/Family/Request visit [] Outpatient visit [] Follow-up visit [] Physician referral [] Code/Alert [X] Routine visit [] Staff referral [] Actively dying [X] Patient sleeping [] Family support [] [] Out of room [] Palliative care [] [] Receiving care in room [] Pre-surgical visit [] Trauma [] Long length of stay [] ICU visit [] Other: Relational/Emotional Strength [] Patient feels connected with others/family/visitors/staff [] Distress [] Loneliness/isolation [] Abandonment Spirituality of Patient [] Person of [place] [] Attends Episcopal of their [place] [] Believes in Prayer [] Reads Bible or Baptism materials [] There are Spiritual issues to be addressed Frame Stripper Interventions [] Prayer [] Active listening [] Non-anxious presence [] Spiritual/emotional support [] Crisis/trauma care [] Spiritual counseling [] Bereavement support [] Provided bereavement packet [] Provided Bible/devotional materials [] Provided toy/stuffed animal, coloring book to patient or family member [] Provided Communion [] Anointing/[place] [] Salvation [] Completed spiritual assessment [] Other: Impact on Illness or Injury [] Angry [] Fearful [] Anxious [] Often cries [] Exhaustion [] Unable to work [] Unable to attend sabianist [] Unable to walk/stand [] Unable to read [] Unable to drive [] Unable to eat/drink [] Unable to sleep [] Unable to be with family [] Patient intubated [] Other: Summary Time spent with patient
--- NOTE | 2020-02-10 11:28 | USCV_ITS ---
Ana Lilia Miller Age: 54 Gender: F : 1965 Exam Date: 02/10/2020 11:28 Ordering Phys: Alisa Metzger MD Technologist: Sue Gutierrez [place]am [place] [facility] [place]: DVT HISTORY: Right upper extremity swelling and discoloration. PROCEDURES: Comparison: none available. Venous duplex imaging was performed in only the right upper extremity. The following venous structures were evaluated: internal jugular vein, subclavian vein, axillary vein, and brachial veins. In addition, the basilic vein, cephalic vein, radial veins, and ulnar veins were assessed. Serial compression, augmentation maneuvers, and spectral Doppler flow evaluation were performed. FINDINGS: Limited exam due to body habitus. No evidence of deep vein thrombosis or superficial thrombophlebitis in the right upper extremity where visualized.. CONCLUSIONS Patent right upper extremity veins with no evidence of thrombosis. Technically difficult study because of poor ultrasonic window Dr Stacy Barboza MD [facility] (Electronically Signed) Final Date: 11 February 2020 12:29 S
[2020-02-10 11:33] LABS: Specific Gravity, Urine 1.015 (1.005-1.030); Urine Appearance Hazy (CLEAR); Urine Color Dark Yellow (Yellow); pH Urine 5 (5-7)
[2020-02-10 11:34] LABS: Add Urine Microscopic? YES; Bacteria Urine 2+; Bilirubin Urine Neg (NEGATIVE); Blood Urine 3+ (Negative); Glucose Urine UA 4+ (Normal); Ketones Urine Negative (Negative); Leukocyte Esterase Urine 2+ (Negative); Nitrate Urine Negative (Negative); Protein Urine Trace (Negative); Squamous Epithelial Cell Urine 15-25 (0-5); Urobilinogen Urine Norm (Negative); WBC Urine 25-40 /hpf (0-5)
[2020-02-10 11:35] LABS: Add Urine Culture? No
[2020-02-10 12:09] LABS: Glucose Point of Care 487 mg/dL (70-110)
[2020-02-10] MEDS: levoFLOXacin 750 mg Tablet PO (13:04)
--- NOTE | 2020-02-10 13:26 | PM.PN ---
Subjective Subjective: Interval history: no acute events, cr trending up to 3, ordered for CT KUB was unable to fit into the CT machine because of morbid obesity. Ultrasound KUB has been ordered To assess for any hydronephrosis. Also complaining of some swelling pain and tenderness over her right upper arm, with concern for DVT, Doppler imaging has been ordered. Fingersticks continue to be upwards of 400. T-max 99. Leukocytosis at 14.6 today, complains of some burning micturition and difficult to a certain whether this is related to her candidiasis or if patient is developing a UTI now. 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 Data : 02/10/20 03:26 02/10/20 03:26 A&P Assessment and plan (1) Atrial fibrillation with RVR: Status: Acute (2) Chronic kidney disease, stage III (moderate): Status: Acute (3) Diabetes mellitus type 2, noninsulin dependent: Status: Acute (4) DELMIS (obstructive sleep apnea): Status: Acute (5) Generalized anxiety disorder: Status: Chronic (6) Diabetes mellitus with hyperosmolarity without hyperglycemic hyperosmolar nonketotic coma: Status: Acute (7) Hyponatremia: Status: Acute Additional A&P Information # hyperglecemic hyperosmolar non ketotic state with BS > 1000, no alteration in mentation , now resolved -Anion gap closed, required insulin dri[ upon presentation, blood sugar control remains suboptimal, HbA1c noted to be at 21. Currently at Lantus 60 units daily along with high dose sliding scale. Continue Lantus to 60 units at bedtime, continue 20 units pre meal standing insulin, add 20 units Lantus in the morning. Tolerating po diet though appetite remains poor # Vulvovaginal and orophayngeal candidisis, cannot exclude ezra esophagitis, likely 2/2 poor glycemic control Continue fluconazole 100mg po BID x 10 days. This is improving. #Complaining of burning micturition along with leukocytosis of 14.2, concern for developing UTI. Repeat check UA. Empiric ceftriaxone in the interim. # A fib with RVR, Better controlled now, continue cardizem 180mg po qd. Also on home dose of metoprolol. continue eliquis # COPD without acute exacerbation: Currently on 4 L nasal cannula which is her baseline. Duoneb Q6h prn, hold off on steroids for now. #Acute kidney injury with creatinine trending up to 3 now. Clinically patient does not appear to be dehydrated at this present time. Her Lasix was resumed at her home dosing yesterday. Urine output is adequate at this present time. Patient unable to get a CT because of morbid obesity and inability to fit into the machine. Ultrasound has been ordered and results are currently awaited. Other chronic issues: Morbid obesity, BMI 63 h/o CHF, resume lasix at 40mg po BID home dosing , currently euvolemic Complaining of right upper extremity pain and tenderness today, Celia added. DVT ppx: lovenox Dispo: discharge to SNF. She has been accepted as a patient at facility, however she has requested a bariatric chair while there which may not be delivered until Wednesday. Attestations Medical Necessity Statement*: Awaiting acceptance and readiness at SNF to accept, evaluating increasing cr Coding Level of Care Code Acute Housekeeping Coordinator for Chg Fwd Diagnoses Atrial fibrillation with RVR I48.91 Chronic kidney disease, stage III (moderate) N18.3 Diabetes mellitus type 2, noninsulin dependent E11.9 DELMIS (obstructive sleep apnea) G47.33 Generalized anxiety disorder F41.1 Diabetes mellitus with hyperosmolarity without hyperglycemic hyperosmolar nonketotic coma E11.00 Hyponatremia E87.1
[2020-02-10 16:44] LABS: Glucose Point of Care 499 mg/dL (70-110)
[2020-02-10 20:56] LABS: Glucose Point of Care 476 mg/dL (70-110)
[2020-02-10] MEDS: insulin glargine 100 units/1 mL 60 UNIT SUBCUT (21:36)
[2020-02-11] VITALS (7 sets, daily range): BP systolic 92–110; BP diastolic 57–71; PULSE 63–86; RESP 17–20; TEMP 36.4–37; O2SAT 97–99
[2020-02-11 06:32] LABS: Glucose Point of Care 481 mg/dL (70-110)
[2020-02-11] MEDS: insulin glargine 100 units/1 mL 30 UNIT SUBCUT (08:55)
[2020-02-11] MEDS: buPROPion SR (12 HR) 100 mg Tablet 200 MG PO (08:57)
[2020-02-11 08:58] LABS: Basophils % 0.5 %; Eosinophils # 0.2 10^3/uL (0.0-0.8); Eosinophils % 1.8 %; Hematocrit 35.3 % (37.0-47.0); Hemoglobin 9.9 g/dL (11.5-15.3); Lymphocytes # 0.9 10^3/uL (0.8-4.8); Lymphocytes % 10.5 %; Mean Corpuscular Hemoglobin 23.7 pg (28.0-34.0); Mean Corpuscular Volume 84.4 fL (81-99); Mean Platelet Volume 11.4 fL (7.4-10.4); Monocytes # 0.5 10^3/uL (0.2-0.9); Monocytes % 6.1 %; Neutrophils # 6.53 10^3/uL (1.8-7.7); Neutrophils % 79.4 %; Nucleated Red Blood Cells % 0 %; Platelet Count 201 10^3/cmm (130-400); Red Blood Count 4.18 10^6/uL (4.1-5.3); Red Cell Distribution Width 20.6 % (12.1-15.1); White Blood Count 8.2 10^3/uL (4.0-10.0)
[2020-02-11] MEDS: apixaban 5 mg Tablet PO ×2 (08:58→17:39)
[2020-02-11] MEDS: gabapentin 300 mg Capsule PO ×3 (08:58→21:36)
[2020-02-11] MEDS: ARIPiprazole 10 mg Tablet 5 MG PO (08:58)
[2020-02-11] MEDS: fluconazole 100 mg Tablet PO (08:58)
[2020-02-11] MEDS: polyethylene glycol 3350 Pkt 17 gm PO ×2 (08:58→17:40)
[2020-02-11] MEDS: sertraline 100 mg Tablet PO (08:58)
[2020-02-11] MEDS: dilTIAZem ER (24HR) 180 mg Capsule PO (08:58)
[2020-02-11] MEDS: metoprolol tartrate 25 mg Tablet PO ×2 (08:58→17:40)
[2020-02-11] MEDS: isosorbide mononitrate ER 30 mg Tablet PO (08:58)
[2020-02-11] MEDS: FUROsemide 40 mg Tablet PO (09:01)
[2020-02-11 09:21] LABS: NT Pro B Type Natriuretic Pept 1485 pg/mL (0-125); Procalcitonin 0.39 ng/mL (0-0.5)
[2020-02-11 09:32] LABS: Alanine Aminotransferase 16 U/L (0-33); Albumin Level 3.1 g/dL (3.5-5.2); Alkaline Phosphatase 95 IU/L (35-105); Anion Gap 12.8 (5-19); Aspartate Amino Transferase 9 U/L (0-32); Blood Urea Nitrogen 51 mg/dL (6-20); Calcium 8.1 mg/dL (8.5-10.5); Carbon Dioxide 19 mmol/L (22-29); Chloride 97 mmol/L (98-107); Globulin 3.3 g/dL (1.3-4.6); Glomerular Filtration Rate 15.1 mL/min (90-130); Glucose 466 mg/dL (65-115); Osmolality Calculated 277 mOsm/kg (285-295); Potassium 4.8 mmol/L (3.5-5.1); Sodium 124 mmol/L (136-145); Total Bilirubin 0.5 mg/dL (0.15-1.2); Total Protein 6.4 g/dL (6.6-8.7)
--- NOTE | 2020-02-11 09:40 | PC.SOCIAL ---
IMM Updated Updated pt on Pg 2 IMM. Pt verbally understands. No questions voiced. Provided pt a copy. Signed, dated, & timed copy in chart.
--- NOTE | 2020-02-11 10:52 | PM.PN ---
Subjective Subjective: Interval history: No acute events overnight. On examination patient's sleeping comfortably in chair. She wakes up to verbal stimulus. Denies of any nausea, vomiting, headache, dizziness. Complaining of pain in her right arm when she moves. She states pain started after she fell in the ICU. Denies of having any nausea, vomiting, headache, dizziness, palpitations, abdominal pain. Labs and vitals noted. 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 Data : 02/11/20 08:10 02/11/20 08:10 A&P Assessment and plan (1) Diabetes mellitus with hyperosmolarity without hyperglycemic hyperosmolar nonketotic coma: Status: Acute (2) Diabetes mellitus type 2, noninsulin dependent: Status: Acute (3) Chronic kidney disease, stage III (moderate): Status: Acute (4) Atrial fibrillation with RVR: Status: Acute (5) Hyponatremia: Status: Acute (6) UTI (urinary tract infection): Status: Acute (7) Vulvovaginal candidiasis: Status: Acute (8) DELMIS (obstructive sleep apnea): Status: Acute (9) Generalized anxiety disorder: Status: Chronic Additional A&P Information Hyperglecemic hyperosmolar non ketotic state with BS > 1000, no alteration in mentation: Now resolved. -Anion gap closed, required insulin drip upon presentation, blood sugar control remains suboptimal, HbA1c noted to be at 21. Blood sugar still running high. Increase Lantus to 60 units twice daily. Continue with NovoLog 20 units pre-meals. Will start patient on home dose of glipizide. Continue with carb consistent diet. We will check blood sugars every 4 hours for now. Vulvovaginal and orophayngeal candidisis, cannot exclude ezra esophagitis, likely 2/2 poor glycemic control Continue fluconazole 100mg po BID x 10 days. This is improving. UTI: Complaining of burning micturition along with leukocytosis of 14.2 yesterday. Urinalysis done yesterday concerning for 2+ leuk esterase and 25-40 WBCs which are new. Leukocytosis has resolved. Continue with oral dose of levofloxacin at renal dose. A fib with RVR: Better controlled now. Continue cardizem 180mg po qd. Also on home dose of metoprolol. continue eliquis COPD without acute exacerbation: Currently on 4 L nasal cannula which is her baseline. Duoneb Q6h prn, hold off on steroids for now. Acute kidney injury: Baseline creatinine around 2. Creatinine 3.[address] KUB could not be done because of morbid obesity. Renal ultrasound results appreciated. Urine output is adequate. We will hold off on any further diuresis for now. Patient is euvolemic. Start on gentle hydration with normal saline at 75 cc/h. Patient does not have any electrolyte abnormalities. Anion gap of 8. Continue to monitor BMP daily. Hyponatremia: Pseudohyponatremia because of elevated blood sugars. Other chronic issues: Morbid obesity, BMI 63 h/o CHF: Most likely diastolic. Last echocardiogram from 2019 was poor quality study because of technical reasons but grossly showed normal LVEF. Currently euvolemic. Treatment as above. Complaining of right upper extremity pain and tenderness today. Check x-ray arm and shoulder. DVT ppx: lovenox Dispo: discharge to SNF. She has been accepted as a patient at facility, however she has requested a bariatric chair while there which may not be delivered until Wednesday. Attestations Medical Necessity Statement*: Uncontrolled blood sugars, DWIGHT Time Spent in Patient Care: Greater than 35 minutes (>than 50% of time spent in counselling and/or direct pt care on unit). Coding Level of Care Code Acute E Commerce Marketing Manager for Tanner Chavez Diagnoses Diabetes mellitus with hyperosmolarity without hyperglycemic hyperosmolar nonketotic coma E11.00 Diabetes mellitus type 2, noninsulin dependent E11.9 Chronic kidney disease, stage III (moderate) N18.3 Atrial fibrillation with RVR I48.91 Hyponatremia E87.1 UTI (urinary tract infection) N39.0 Vulvovaginal candidiasis B37.3 DELMIS (obstructive sleep apnea) G47.33 Generalized anxiety disorder F41.1
[2020-02-11 10:58] LABS: Glucose Point of Care 438 mg/dL (70-110)
--- NOTE | 2020-02-11 11:06 | PC.CHAP ---
Pastoral Care Encounter/Spiritual Assessment Type of Contact [] Declined customs broker visit [] Patient/Family/Request visit [] Outpatient visit [X] Follow-up visit [] Physician referral [] Code/Alert [X] Routine visit [] Staff referral [] Actively dying [] Patient sleeping [] Family support [] [] Out of room [] Palliative care [] [] Receiving care in room [] Pre-surgical visit [] Trauma [] Long length of stay [] ICU visit [] Other: Relational/Emotional Strength [] Patient feels connected with others/family/visitors/staff [X] Distress [] Loneliness/isolation [] Abandonment Spirituality of Patient [] Person of [place] [] Attends Roman Catholic of their [place] [] Believes in Prayer [] Reads Bible or Evangelical materials [] There are Spiritual issues to be addressed 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 [] Prayer [] Active listening [] Non-anxious presence [] Spiritual/emotional support [] Crisis/trauma care [] Spiritual counseling [] Bereavement support [] Provided bereavement packet [] Provided Bible/devotional materials [] Provided toy/stuffed animal, coloring book to patient or family member [] Provided Communion [] Anointing/[place] [] Salvation [] Completed spiritual assessment [X] Other: Advocacy Impact on Illness or Injury [] Angry [] Fearful [] Anxious [] Often cries [] Exhaustion [] Unable to work [] Unable to attend advent [] Unable to walk/stand [] Unable to read [] Unable to drive [] Unable to eat/drink [] Unable to sleep [] Unable to be with family [] Patient intubated [] Other: Summary: Pt did not really want to visit so I asked if she needed anything before I left to which she responded with a need relating to her breakfast. I found her nurse and conveyed the message. Time spent with patient: <5 mins
[2020-02-11] MEDS: glimepiride 2 mg Tablet 1 MG PO (12:41)
[2020-02-11] MEDS: sodium chloride 0.9% 1,000 ML 75 ML IV (12:45)
--- NOTE | 2020-02-11 15:24 | PC.PT ---
Patient seen in AM and Refused PT. Patient was seated in chair. Requested cup of ice. Will try later in afternoon, if able.
[2020-02-11 16:15] LABS: Glucose Point of Care 388 mg/dL (70-110)
--- NOTE | 2020-02-11 16:37 | XRR_ITS ---
PROCEDURE INFORMATION: Exam: XR Right Shoulder Exam date and time: 02/11/2020 8:35 PM Age: 54 years old Clinical indication: Injury or trauma; Fall; Initial encounter; Abrasion; Shoulder; Right TECHNIQUE: Imaging protocol: XR Right shoulder. Views: 2 or more views. COMPARISON: CR Shoulder 2+ views RIGHT* [id number] 11/17/2016 5:38 AM FINDINGS: Bones/joints: Mild AC joint arthrosis. Alignment is normal. There is no acute fracture. Soft tissues: Normal. XR/XR shoulder RT min 2V* [id number] IMPRESSION: No acute fracture.
--- NOTE | 2020-02-11 16:37 | XRR_ITS ---
PROCEDURE INFORMATION: Exam: XR Right Humerus Exam date and time: 02/11/2020 8:35 PM Age: 54 years old Clinical indication: Injury or trauma; Fall; Initial encounter; Abrasion; Arm, upper; Right TECHNIQUE: Imaging protocol: XR Right humerus Views: 2 or more views. COMPARISON: CR Elbow 3 views, RIGHT* [id number] 11/17/2016 5:43 AM FINDINGS: Bones/joints: Normal. Soft tissues: Normal. XR/[place] [id number] IMPRESSION: No acute findings.
[2020-02-11] MEDS: clotrimazole 1% cream 30 gm 1 APPLIC TOPICAL (17:39)
[2020-02-11] MEDS: insulin glargine 100 units/1 mL 60 UNIT SUBCUT (17:40)
[2020-02-11 20:46] LABS: Glucose Point of Care 429 mg/dL (70-110)
[2020-02-11 23:46] LABS: Glucose Point of Care 422 mg/dL (70-110)
[2020-02-12] VITALS: BP 109/57; PULSE 89; RESP 16; TEMP 36.7; O2SAT 98
[2020-02-12] MEDS: sodium chloride 0.9% 1,000 ML 75 ML IV (01:59)
[2020-02-12 04:00] VITALS: BP 113/72; PULSE 110; RESP 16; TEMP 36.6; O2SAT 100
[2020-02-12] MEDS: insulin glargine 100 units/1 mL 60 UNIT SUBCUT (05:31)
[2020-02-12 05:36] LABS: Glucose Point of Care 320 mg/dL (70-110)
[2020-02-12 07:33] VITALS: BP 115/74; PULSE 63; RESP 18; TEMP 36.3; O2SAT 98
[2020-02-12] MEDS: apixaban 5 mg Tablet PO (08:18)
[2020-02-12] MEDS: ARIPiprazole 10 mg Tablet 5 MG PO (08:18)
[2020-02-12] MEDS: glimepiride 2 mg Tablet 1 MG PO (08:19)
[2020-02-12] MEDS: isosorbide mononitrate ER 30 mg Tablet PO (08:19)
[2020-02-12] MEDS: metoprolol tartrate 25 mg Tablet PO (08:19)
[2020-02-12] MEDS: gabapentin 300 mg Capsule PO ×2 (08:19→15:25)
[2020-02-12] MEDS: sertraline 100 mg Tablet PO (08:19)
[2020-02-12] MEDS: dilTIAZem ER (24HR) 180 mg Capsule PO (08:20)
[2020-02-12] MEDS: fluconazole 100 mg Tablet PO (08:20)
[2020-02-12] MEDS: buPROPion SR (12 HR) 100 mg Tablet 200 MG PO (08:22)
[2020-02-12] MEDS: clotrimazole 1% cream 30 gm 1 APPLIC TOPICAL (08:23)
[2020-02-12 11:00] LABS: Glucose Point of Care 342 mg/dL (70-110)
[2020-02-12 12:00] VITALS: BP 101/70; PULSE 70; RESP 18; TEMP 36.8; O2SAT 95
[2020-02-12] MEDS: levoFLOXacin 750 mg Tablet PO (12:11)
--- NOTE | 2020-02-12 13:10 | PM.DCS ---
Discharge Providers Date of Admission: 02/06/20 16:25 Date of Discharge: February 12, 2020 Attending Provider at Admission: Alisa Metzger MD Attending Provider at Discharge: Alisa Metzger MD Primary Care Provider: Mervat Nguyen Diagnoses at Discharge Discharge Diagnosis (1) Diabetes mellitus with hyperosmolarity without hyperglycemic hyperosmolar nonketotic coma: Status: Acute (2) Diabetes mellitus type 2, noninsulin dependent: Status: Acute Problem details: last A1c in 03/30 was 7.4 (3) Chronic kidney disease, stage III (moderate): Status: Acute Problem details: Cr has ranged 1.6-2.1 since 11/27 (4) Atrial fibrillation with RVR: Status: Acute (5) Hyponatremia: Status: Acute (6) UTI (urinary tract infection): Status: Acute (7) Vulvovaginal candidiasis: Status: Acute (8) DELMIS (obstructive sleep apnea): Status: Acute Problem details: Reports not currently compliant with therapy due to contaminated machine (9) Generalized anxiety disorder: Status: Chronic Reason for Visit Reason for Visit: N/V, UTI Hospital Course Discharge Summary: Ana Lilia Miller is a 54 year old female who presented today from home, non complaint with medications, multiple comorbidities including diabetes mellitus, CHF,, multiple admissions due to symptomatic A. fib RVR, chronic anticoagulation with Eliquis, oxygen dependent COPD uses 3 L, noncompliant with her CPAP for sleep apnea came in with chief complaint of urinary tract infection with burning in the vaginal area who reportedly was on abx recently but then developed thrush and decided to present to the hospital for UTI. Labs notable for blood sugar >100, AG 19, pseudohyponatremia and vulvovaginal and oropharyngeal candidiasis. Also with A fib RVR with HR 160s. has not taken any medicatons in at least one week due to nausea, vomiting and odynophagia . Hospital course and management as below: # Hyperglecemic hyperosmolar non ketotic state with BS > 1000, no alteration in mentation: Now resolved. -Anion gap closed, required insulin drip upon presentation, blood sugar control remains suboptimal, HbA1c noted to be at 21. Blood sugar still running high, but better controlled in th 300 range. Currently on Lantus to 60 units twice daily, NovoLog 20 units pre-meals, home dose of glipizide 2.5mg po qd/ Continue with carb consistent diet.We will check blood sugars every 4 hours for now. #Vulvovaginal and orophayngeal candidisis, cannot exclude ezra esophagitis + intertrigo, improving likely 2/2 poor glycemic control Continue fluconazole 100mg po BID x 10 days. This is improving. # UTI: Complaining of burning micturition along with leukocytosis of 14.2, improved to 8 upon discharge. Urinalysis concerning for 2+ leuk esterase and 25-40 WBCs which are new. Leukocytosis has resolved. Continue with oral dose of levofloxacin at renal dose. # A fib with RVR: Better controlled now. cardizem 180mg po qd. Also on home dose of metoprolol. continue eliquis # COPD without acute exacerbation: Currently on 4 L nasal cannula which is her baseline. Duoneb Q6h prn, hold off on steroids for now. # Acute kidney injury: Baseline creatinine around 2. Creatinine 3.2 peak during admission. Creatinine clearance at 66. CT KUB could not be done because of morbid obesity. Renal ultrasound results : No appreciable hydronephrosis. Urine output is adequate. We will hold off on any further diuresis for now. Patient is euvolemic. Start on gentle hydration with normal saline at 75 cc/h. Patient does not have any electrolyte abnormalities. Anion gap of 8. Continue to monitor BMP daily. # Hyponatremia: Pseudohyponatremia because of elevated blood sugars. Other chronic issues: Morbid obesity, BMI 63 h/o CHF: Most likely diastolic. Last echocardiogram from 2019 was poor quality study because of technical reasons but grossly showed normal LVEF. Currently Lasix remains on hold as patient is euvolemic and because of trending up creatinine. Currently euvolemic. Complaining of right upper extremity pain and tenderness: Check x-ray arm and shoulder negative, RUE venous duplex: negative for DVT. DVT ppx: Eliquis Dispo: discharge to SNF given significant deconditioning. 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 Discharge Data Data Completed and Pending: Completed Studies During Hospitalization Category Date Time Status XR chest 1V shania ble [id number] Routine Exams 02/09/20 07:00 Completed XR chest 1V shania ble [id number] Stat Exams 02/06/20 15:22 Completed XR humerus RT 730 60 Routine Exams 02/11/20 16:37 Completed XR shoulder RT mi n 2V* [id number] Routin e Exams 02/11/20 16:37 [place] [id number] Routin e Ultrasound 02/10/20 11:28 Completed US renal BI with bladder Routine Ultrasound 02/10/20 09:48 Completed Labs from last 24 hours 02/12/20 02/12/20 02/11/20 10:56 05:30 23:43 POC Glucose 342 320 422 02/11/20 02/11/20 20:43 15:53 POC Glucose 429 388 Vitals: Last Vital Signs Temp 98.3 F 02/12/20 12:00 Pulse 70 02/12/20 12:00 Resp 18 02/12/20 12:00 BP 101/70 02/12/20 12:00 Pulse Ox 95 02/12/20 12:00 Discharge Plan Discharge Patient Disposition: Xfer SNF Condition: Stable Prescriptions: New fluconazole 100 mg Tablet 100 mg PO DAILY 10 Days Qty: 10 RF: 0 Lantus U-100 Insulin 100 unit/mL Solution 60 unit SUBCUT Q12H 30 Days Qty: 36 RF: 0 Novolog U-100 Insulin aspart 100 unit/mL Solution 20 unit SUBCUT TIDWM 30 Days Qty: 6 RF: 0 clotrimazole 1 % Cream 1 applic topical BID 30 Days Qty: 30 RF: 0 DILT-XR 180 mg Capsule,Ext.Rel 24h Degradable 180 mg PO DAILY 30 Days Qty: 30 RF: 0 Miralax 17 gram Powder In Packet 17 g PO BID 14 Days RF: 0 levofloxacin 750 mg Tablet 750 mg PO Q48H 5 Days Qty: 3 RF: 0 Continued gabapentin 300 mg capsule 300 mg PO TID RF: 0 Abilify 5 mg tablet 5 mg PO .morning Qty: 90 RF: 2 Wellbutrin SR 200 mg tablet sustained-release 12 hr 200 mg PO .morning Qty: 90 RF: 2 sertraline [Zoloft] 100 mg tablet 100 mg PO .morning Qty: 90 RF: 2 hydrocodone-acetaminophen 10-325 mg tablet 1 tab PO Q8H PRN (Reason: Pain) RF: 0 glipizide 2.5 mg Tablet Extended Release 24hr 2.5 mg PO DAILY RF: 0 diclofenac sodium 1 % Gel 4 g TOPICAL QID PRN (Reason: Pain) RF: 0 isosorbide mononitrate 30 mg Tablet Extended Release 24 Hr 30 mg PO DAILY Qty: 30 RF: 0 sumatriptan succinate [Imitrex] 25 mg Tablet 25 mg PO Q6H PRN (Reason: Migraine Headache) Qty: 0 RF: 0 metoprolol tartrate 25 mg Tablet 25 mg PO BID Qty: 30 RF: 0 Eliquis 5 mg Tablet 5 mg PO BID Qty: 30 RF: 0 Discontinued hydroxyzine pamoate 25 mg capsule 25 mg PO TID PRN (Reason: Anxiety) Qty: 270 RF: 1 nystatin-triamcinolone 100,000-0.1 unit/g-% cream 1 applic TOPICAL BID Qty: 30 RF: 0 ondansetron HCl [Zofran] 4 mg Tablet 4 mg PO Q6H PRN (Reason: NAUSEA/VOMITING) RF: 0 diltiazem HCl [Cartia XT] 120 mg capsule,extended release 24hr 120 mg PO DAILY Qty: 30 RF: 0 furosemide 40 mg Tablet 40 mg PO BIDWM Qty: 60 RF: 1 Discharge Orders: Discharge Order (Routine); Ordered 02/12/20 Ordered By: Alisa Metzger Referrals: [facility] [Outside] Discharge Diet: Diabetic Discharge Activity: Resume usual activity and As per PT/OT instructions Activity Restrictions/Additional Instructions: Please titrate oxygen to keep o2 saturation at or above 92% Discharge Attestations Time Spent in Discharge Care*: greater than 30 min Status at Discharge: Cognitive status at discharge: cognitively intact, Behavioral status at discharge: cooperative, Quality Metrics Clinical Quality Measures During this hospital stay, did patient experience: None Coding Level of Care Code Acute Qual Field Manager for g Fwd Diagnoses Diabetes mellitus with hyperosmolarity without hyperglycemic hyperosmolar nonketotic coma E11.00 Diabetes mellitus type 2, noninsulin dependent E11.9 Chronic kidney disease, stage III (moderate) N18.3 Atrial fibrillation with RVR I48.91 Hyponatremia E87.1 UTI (urinary tract infection) N39.0 Vulvovaginal candidiasis B37.3 DELMIS (obstructive sleep apnea) G47.33 Generalized anxiety disorder F41.1
[2020-02-12 13:34] VITALS: BP 101/70; PULSE 70; RESP 18; TEMP 36.8; O2SAT 95
[2020-02-12 14:07] VITALS: PULSE 75; O2SAT 98
[2020-02-12] MEDS: HYDROcodone-acetaminophen 10-325 mg Tablet 1 TAB PO (15:25)
== END 2020-02-12 15:45 | disposition skilled nursing facility (03) | DRG 308 ==
LOC: ER 16:21 → ICU 16:50 → MEDSURG 02-08 14:19
PROVIDERS: Family Medicine; Internal Medicine; Physician Assistant; Student in an Organized Health Care Education/Training Program; Admitting Provider Student in an Organized Health Care Education/Training Program; PCP Internal Medicine; Visit Provider Student in an Organized Health Care Education/Training Program
DX: I48.91 Unspecified atrial fibrillation (principal); E11.00 Type 2 diabetes mellitus with hyperosmolarity without nonketotic hyperglycemic-hyperosmolar coma (NKHHC); B37.0 Candidal stomatitis; I13.0 Hypertensive heart and chronic kidney disease with heart failure and stage 1 through stage 4 chronic kidney disease, or unspecified chronic kidney disease; I50.32 Chronic diastolic (congestive) heart failure; F33.2 Major depressive disorder, recurrent severe without psychotic features; Z68.44 Body mass index [BMI] 60.0-69.9, adult; E87.1 Hypo-osmolality and hyponatremia; N39.0 Urinary tract infection, site not specified; N17.9 Acute kidney failure, unspecified; Z79.01 Long term (current) use of anticoagulants; Z99.81 Dependence on supplemental oxygen; J44.9 Chronic obstructive pulmonary disease, unspecified; Z91.14 Patient's other noncompliance with medication regimen; G47.33 Obstructive sleep apnea (adult) (pediatric); B37.3 Candidiasis of vulva and vagina; E11.22 Type 2 diabetes mellitus with diabetic chronic kidney disease; E11.65 Type 2 diabetes mellitus with hyperglycemia; N18.3 Chronic kidney disease, stage 3 (moderate); F41.9 Anxiety disorder, unspecified; F42.3 Hoarding disorder; E03.9 Hypothyroidism, unspecified; E66.01 Morbid (severe) obesity due to excess calories; Z87.891 Personal history of nicotine dependence; M79.89 Other specified soft tissue disorders; Z79.891 Long term (current) use of opiate analgesic; M25.511 Pain in right shoulder; M79.621 Pain in right upper arm; W18.39XA Other fall on same level, initial encounter; Y92.230 Patient room in hospital as the place of occurrence of the external cause
CPT/HCPCS: 12345; 36415; 36416; 36600; 71045; 73030; 73060; 76770; 76857; 80053; 80061; 81001; 81003; 82803; 82947; 82962; 83036; 83690; 83880; 84145; 85025; 87040; 87210; 93005; 93971; 96372; 96375; 97110; 97161; 97530; 99283; J1450; J1815 ×2; J2270; J2405; J3480; J3490; J7030; J7050

== ENCOUNTER → 2020-02-22 09:19 | Outpatient (BNVA) | payer MEDICARE, MEDICAID, SELFPAY | PROVIDERS: PCP Internal Medicine; Visit Provider Nurse Practitioner Psychiatric/Mental Health | DX: F33.2 Major depressive disorder, recurrent severe without psychotic features (principal); F41.1 Generalized anxiety disorder; F42.3 Hoarding disorder | CPT/HCPCS: 99213 ==

== ENCOUNTER 2020-03-03 10:52 | Emergency (ER) | payer MEDICARE, MEDICAID, SELFPAY ==
[2020-03-03] VITALS (19 sets, daily range): BP systolic 134–157; BP diastolic 68–108; PULSE 50–183; RESP 13–47; TEMP 37.2–37.7; O2SAT 92–100; BMI 61.0
--- NOTE | 2020-03-03 11:06 | XR_ITS ---
WS: [id number] EXAM: AP CHEST: PORTABLE UPRIGHT DATE OF EXAM: 03/03/2020, 1200 hours COMPARISON: Chest x-ray from 02/09/2020 HISTORY: Patient is 54 years old with shortness of breath. FINDINGS: The cardiac silhouette is considered enlarged but similar The mediastinal contours are widened. Pr esumably related to positioning. The pulmonary vascularity is hard to evaluate secondary to the deg ree of fairly extensive interstitial infiltrate/edema. Diffuse bilateral interstitial infiltrates/joie ma are demonstrated. Additional slight alveolar component is seen in both lung bases. There is no ef fusion or pneumothorax. No acute bony abnormality is seen. XR/XR chest 1V portable [id number] IMPRESSION: Imaging findings of interval development of fairly extensive interstitial infil trate felt to represent pulmonary edema most likely representing congestive hea rt failure.
--- NOTE | 2020-03-03 11:06 | ECG_ITS ---
[facility] Test Date: 2020-03-03 Pat Name: Ana Lilia Miller Department: Room: Gender: Female Inspector Fibrous Wallboard: : 1965 Requested By: Dory Ruvalcaba Order Number: [id number] [place] MD: Sathya Sellers M.D. Measurements Intervals [place] Rate: 133 P: [place]: -1 QRS: 124 QRSD: 75 T: 54 QT: 299 QTc: 445 Interpretive Statements ATRIAL FIBRILLATION WITH RAPID VENTRICULAR RESPONSE RIGHT AXIS DEVIATION [QRS AXIS > 100] LOW QRS VOLTAGE [QRS DEFLECTION < 0.5/1.0 mV IN LIMB/CHEST LEADS] PATTERN CONSISTENT WITH PULMONARY DISEASE Compared to ECG 02/06/2020 16:11:43 Right-axis deviation now present Low QRS voltage now present T-wave abnormality no longer present Electronically Signed On 03-03-2020 18:28:44 CDT by Sathya Sellers M.D. [email or web address]
[2020-03-03 11:15] LABS: Basophils # 0.1 10^3/uL (0.0-0.1); Basophils % 0.6 %; Eosinophils # 0.2 10^3/uL (0.0-0.8); Eosinophils % 1.3 %; Hematocrit 35.3 % (37.0-47.0); Hemoglobin 9.6 g/dL (11.5-15.3); Lymphocytes # 2.3 10^3/uL (0.8-4.8); Lymphocytes % 13.8 %; Mean Corpuscular HGB Conc 27.2 g/dL (30.0-36.0); Mean Corpuscular Hemoglobin 25.9 pg (28.0-34.0); Mean Corpuscular Volume 95.4 fL (81-99); Mean Platelet Volume 11.3 fL (7.4-10.4); Monocytes # 0.9 10^3/uL (0.2-0.9); Monocytes % 5.3 %; Neutrophils # 12.22 10^3/uL (1.8-7.7); Nucleated Red Blood Cells # 0.1 /100WBC; Nucleated Red Blood Cells % 0.8 %; Platelet Count 356 10^3/cmm (130-400); White Blood Count 16.6 10^3/uL (4.0-10.0)
[2020-03-03 11:19] LABS: Arterial Blood Gas Hematocrit 30.6 % (37-47); Base Excess ABG -7.2 mmol/L (-2.0-2.0); Blood Gas Allen Test Pos; Blood Gas Operator Identificat CAK; Blood Gas Sample Site Radial, right; Blood Gas Sample Type Arterial; Carboxyhemoglobin 1.6 %THgb (0.4-20.1); HCO3 ABG 23.6 mmol/L (22-26); HGB O2 Sat 86.4 % (95-100); Ionized Calcium Level - ABG 1.2 mmol/L (1.1-1.4); Methemoglobin 1.1 % (0.4-1.5); Oxygen Device AMBU; Oxygen Saturation ABG 88.7; PO2 ABG 81.1 mmHg (80.0-100.0); Potassium Level - ABG 5.1 mmol/L (3.5-5.0)
[2020-03-03 11:20] LABS: ABG PH Result 7.08 (7.35-7.45)
[2020-03-03 11:21] LABS: ABG PCO2 79.9 mmHg (35-45)
[2020-03-03 11:29] LABS: INR 1.16 (0.8-1.2)
[2020-03-03 11:45] LABS: Alanine Aminotransferase 22 U/L (0-33); Albumin Level 3.4 g/dL (3.5-5.2); Alkaline Phosphatase 107 IU/L (35-105); Anion Gap 18.2 (5-19); Aspartate Amino Transferase 27 U/L (0-32); Blood Urea Nitrogen 14 mg/dL (6-20); Calcium 8.6 mg/dL (8.5-10.5); Carbon Dioxide 23 mmol/L (22-29); Chloride 96 mmol/L (98-107); Globulin 3.4 g/dL (1.3-4.6); Glomerular Filtration Rate 24.5 mL/min (90-130); Glucose 337 mg/dL (65-115); NT Pro B Type Natriuretic Pept 6372 pg/mL (0-125); Osmolality Calculated 283 mOsm/kg (285-295); Potassium 5.2 mmol/L (3.5-5.1); Sodium 132 mmol/L (136-145); Total Bilirubin 1.6 mg/dL (0.15-1.2); Total Protein 6.8 g/dL (6.6-8.7)
[2020-03-03 12:09] LABS: D Dimer 1.36 ug/mIFEU (0-0.59); Fibrinogen 741 mg/dL (174-498)
[2020-03-03 12:21] LABS: SARS Covid-2 Antigen Negative (Negative)
[2020-03-03 12:38] LABS: Procalcitonin 0.22 ng/mL (0-0.5)
[2020-03-03 12:40] LABS: ABG PCO2 39.8 mmHg (35-45); ABG PH Result 7.37 (7.35-7.45); Alveolar-Arterial Oxygen Gradi 29.2 mmHg (5-10); Arterial Blood Gas Hematocrit 28.5 % (37-47); Base Excess ABG -1.9 mmol/L (-2.0-2.0); Blood Gas Allen Test Pos; Blood Gas Operator Identificat CAK; Blood Gas Sample Site Radial, left; Blood Gas Sample Type Arterial; Carboxyhemoglobin 1.6 %THgb (0.4-20.1); HCO3 ABG 23.2 mmol/L (22-26); HGB O2 Sat 97.5 % (95-100); Ionized Calcium Level - ABG 1.1 mmol/L (1.1-1.4); Methemoglobin 1.2 % (0.4-1.5); Oxygen Device BIPAP; Oxygen Saturation ABG > 100.0; Potassium Level - ABG 4.7 mmol/L (3.5-5.0); Total Hemoglobin 9.3 g/dL (12-16)
[2020-03-03 12:49] LABS: C Reactive Protein 105.5 mg/L (0.0-4.9); Ferritin 121 ng/mL (15-150)
[2020-03-03 12:53] LABS: Lactic Sepsis W/Reflex 6.4 mmol/L (0.5-2.2)
[2020-03-03 12:55] LABS: Lactate Dehydrogenase 282 U/L (135-214)
[2020-03-03 12:55] LABS: Bilirubin Urine Neg (NEGATIVE); Blood Urine Neg (Negative); Glucose Urine UA Trace (Normal); Ketones Urine Negative (Negative); Leukocyte Esterase Urine Negative (Negative); Nitrate Urine Negative (Negative); Protein Urine 1+ (Negative); Sulfosalicylic Acid Urine Positive (Negative); Urine Appearance Clear (CLEAR); Urine Color Yellow (Yellow); Urobilinogen Urine Norm (Negative); WBC Urine 0-4 /hpf (0-5); pH Urine 8 (5-7)
[2020-03-03 12:56] LABS: Add Urine Culture? No; Bacteria Urine TRACE; Coarse Granular Casts Urine 0-4 /lpf
[2020-03-03 13:52] LABS: Reflex Lactate Order REFLEX LACTIC ORDERD
--- NOTE | 2020-03-03 13:52 | PM.HP ---
Providers/Chief Complaint Primary Care Provider: Mervat Nguyen Chief Complaint: RESP DISTRESS History of Present Illness Ana Lilia Miller is a 54 year old female presents emergency department with severe hypoxic respiratory failure. She was blue as I was told. She met sepsis criteria. Her chest x-ray showed diffuse pulmonary infiltrates. She reported fever and chills at home. In ER she had temperature 102 measured rectally. She reports dry cough. She was placed on BiPAP with some improvement of her mental status and during my evaluation she was able to provide some history. She reports compliance with Eliquis and Lasix although previous records mention medical noncompliance. She uses 3 L of oxygen by nasal cannula continuously. Reports that she lives with her . Reports that she had right-sided sharp chest pain. She was in atrial fibrillation with rapid ventricular response. Denies abdominal pain or nausea or vomiting. She could not comment on melena or hematochezia. She noted to have anemia with hemoglobin 9.6. CODE STATUS was discussed with patient and she wants to be a full code. Rapid COVID-19 test was negative. Patient's presentation appears to be multifactorial with acute heart failure and highly suspected pneumonia including viral. Review of Systems Narrative: Patient was very lethargic and very difficult to obtain information from her except as mentioned. Medications/Allergies Home Medications Medication Instructions Recorded Confirmed Last Taken Type glipizide 2.5 mg PO DAILY 07/25/19 03/03/20 02/05/20 History diclofenac sodium 4 g TOPICAL QID PRN 08/07/19 03/03/20 11/08/19 History isosorbide mononitrate 30 mg PO DAILY #30 tab 08/09/19 03/03/20 02/05/20 Rx sumatriptan succinate [Imitrex] 25 mg PO Q6H PRN #0 tab 08/09/19 03/03/20 07/24/19 10:00 Rx gabapentin 300 mg capsule 300 mg PO TID 10/05/19 03/03/20 02/05/20 History Eliquis 5 mg PO BID #30 tab 11/11/19 03/03/20 02/05/20 Rx metoprolol tartrate 25 mg PO BID #30 tab 11/11/19 03/03/20 02/05/20 Rx hydrocodone-acetaminophen 1 tab PO Q8H PRN 07/03/03/20 02/05/20 History clotrimazole 1 applic TOPICAL BID 30 Days #30 gm 02/12/20 03/03/20 Unknown Rx diltiazem HCl [DILT-XR] 180 mg PO DAILY 30 Days #30 cap 02/12/20 03/03/20 Unknown Rx insulin aspart U-100 [Novolog 20 unit SUBCUT TIDWM 30 Days #6 ml 02/12/20 03/03/20 Unknown Rx U-100 Insulin aspart] insulin glargine [Lantus U-100 60 unit SUBCUT Q12H 30 Days #36 ml 02/12/20 03/03/20 Unknown Rx Insulin] aripiprazole 5 mg tablet 5 mg PO .morning #90 tab 02/22/20 03/03/20 Unknown Rx bupropion HCl 200 mg tablet,12 hr 200 mg PO .morning #90 tab 02/22/20 03/03/20 Unknown Rx sustained-release sertraline 100 mg tablet 100 mg PO .morning #90 tab 02/22/20 03/03/20 Unknown Rx furosemide 40 mg PO DAILY 03/03/20 03/03/20 Unknown History hydroxyzine pamoate 25 mg PO TID 03/03/20 03/03/20 Unknown History insulin glargine [Basaglar KwikPen See Rx Instructions .ROUTE .COMPLEX 03/03/20 03/03/20 Unknown History U-100 Insulin] levothyroxine 25 mcg PO DAILY 03/03/20 03/03/20 Unknown History nystatin See Rx Instructions .ROUTE .COMPLEX 03/03/20 03/03/20 Unknown History ondansetron HCl 4 mg PO Q6H PRN 03/03/20 03/03/20 Unknown History Allergies Allergy/AdvReac Type Severity Reaction Status Date / Time Tetracyclines Allergy Severe ALGY-Anaphy Verified 07/19/19 22:35 laxis wool Allergy Intermediate ALGY-Hives Verified 07/19/19 22:35 adhesive AdvReac Unknown Verified 07/19/19 22:35 Artificial Sweetners AdvReac Intermediate ADR-Headach Uncoded 07/20/19 04:24 e PFSH Acute PFSH: Medical History (Updated 03/03/20 @ 14:22 by Edward Blandon MD) Atrial fibrillation Chronic anticoagulation On hold due to vaginal bleeding Chronic kidney disease, stage III (moderate) Cr has ranged 1.6-2.1 since 11/27 Congestive heart failure COPD (chronic obstructive pulmonary disease) Diabetes mellitus type 2, noninsulin dependent Generalized anxiety disorder Hoarding disorder with excessive acquisition Hypertension Hypothyroidism last TSH in 03/30 was 6.18 Major depressive disorder, recurrent severe without psychotic features Morbid obesity with BMI of 60.0-69.9, adult DELMIS (obstructive sleep apnea) Oxygen dependent Vaginal bleeding Surgical History History of dental surgery Status post biopsy of skin Family History Other Chronic kidney disease (CKD) Diabetes Hypertension Thyroid disease Social History Smoking and tobacco status: former smoker Alcohol intake: never Marital status details: is wheelchair-bound, Vitals/I&O/Wt Last Vital Signs Temp 99.8 F H 03/03/20 11:07 Pulse 132 H 03/03/20 12:00 Resp 27 H 03/03/20 12:00 BP 148/108 03/03/20 12:15 Pulse Ox 99 03/03/20 12:15 Weight last 48 hrs Weight 192.777 kg Physical Exam Const: ORIENTATION/CONSCIOUSNESS: Yes lethargic OTHER: Relatively comfortable on BiPAP with 50% FiO2. HENMT: COMMON NORMALS: normocephalic and atraumatic HEAD & SCALP: normocephalic and atraumatic Eye: COMMON NORMALS: EOMs intact bilaterally, conjunctivae normal and no scleral icterus CONJUNCTIVA: Yes conjunctivae normal Neck/C-Spine: COMMON NORMALS: no lymphadenopathy Resp: OTHER: Significant decreased air movement. No rales, rhonchi or wheezing appreciated. Cardio: RHYTHM: abnormal rhythm irregularly irregular OTHER: No lower extremity edema GI: COMMON NORMALS: Soft to palpation and non-tender PALPATION: Yes Soft to palpation RECTAL EXAM: deferred OTHER: Abdominal wall edematous. Extremity: NARRATIVE EXTREMITY EXAM: 2-3+ edema with stasis dermatitis. Neuro: COMMON NORMALS: patient oriented x3 and no focal motor deficits SENSORIUM/ORIENTATION: Yes alert MENINGEAL SIGNS: Yes no meningeal signs Psych: COMMON NORMALS: mental status grossly normal THOUGHT PROCESS: Normal thought process present OTHER: Exam overall is limited because of patient's lethargic state and respiratory failure. Urinary Catheter Management^: Casiano: Cath Placed During This Visit: yes Reason for Continuing Indwelling Catheter: Accurate Measurement of Urinary Output in Critically Ill Patients Urinary Catheter Date of Insertion: 03/03/20 Urinary Catheter Time of Insertion: 12:15 Data : 03/03/20 11:00 03/03/20 11:00 Micro: Microbiology 03/03/20 11:05 Blood Culture - Preliminary Blood SPECIMEN COLLECTED 03/03/20 11:00 Blood Culture - Preliminary Blood SPECIMEN COLLECTED A&P Assessment and plan (1) Acute respiratory failure with hypoxia and hypercapnia: This appears to be multifactorial with acute heart failure and pneumonia highly concerning for COVID-19 and/or other viral or bacterial. Status: Acute (2) Diabetes mellitus type 2, noninsulin dependent: Status: Acute (3) DELMIS (obstructive sleep apnea): Status: Acute (4) Atrial fibrillation with RVR: Status: Acute (5) Congestive heart failure: Status: Acute Qualifiers: Heart failure type: systolic Heart failure chronicity: chronic Qualified Code(s): I50.22 - Chronic systolic (congestive) heart failure (6) History of noncompliance with medical treatment: Status: Acute (7) Hyponatremia: Patient shows evidence of fluid overload. Status: Acute (8) Morbid obesity with BMI of 60.0-69.9, adult: Status: Acute (9) Sepsis with acute organ dysfunction and septic shock: As exhibited by leukocytosis, fever, tachycardia and tachypnea with elevated lactic acid. Status: Acute Additional A&P Information PLAN: Discussed with patient about possibility of COVID-19 pneumonia in addition to acute heart failure and high mortality risk given her morbid obesity and underlying comorbidities. It was recommended patient to be transferred to larger facility intensive care unit and patient agreed. Discussed with Dr. Dueñas and she will try to arrange transfer. Antibiotics prescribed. EKG showed no ST elevation. Troponin will likely be elevated given underlying chronic kidney disease, A. fib with RVR and respiratory failure. Non-ST elevation [place] cannot be ruled out at this point. Attestations Medical Necessity Statement*: Patient with respiratory failure requires close ICU monitoring and treatment. She is being transferred to larger facility. Time Spent in Patient Care: Greater than 35 minutes Coding Level of Care Code Acute Recorder Helper Seismograph for Chg Fwd Diagnoses Acute respiratory failure with hypoxia and hypercapnia J96.01; J96.02 Diabetes mellitus type 2, noninsulin dependent E11.9 DELMIS (obstructive sleep apnea) G47.33 Atrial fibrillation with RVR I48.91 Congestive heart failure I50.22 Heart failure type: systolic Heart failure chronicity: chronic History of noncompliance with medical treatment Z91.19 Hyponatremia E87.1 Morbid obesity with BMI of 60.0-69.9, adult E66.01; Z68.44 Sepsis with acute organ dysfunction and septic shock A41.9; R65.21
[2020-03-03] MEDS: dexamethasone 10 mg/mL INJ IVP (14:00)
[2020-03-03] MEDS: enoxaparin 100 mg/mL Syringe SUBCUT (14:00)
[2020-03-03] MEDS: cefTRIAXone 1,000 MG in sodium chloride 0.9% (plus) 50 ML 100 MG IV (14:33)
[2020-03-03] MEDS: azithromycin 500 MG in sodium chloride 0.9% 250 ML 250 MG IV (14:34)
[2020-03-03] MEDS: acetaminophen 650 mg Supp 975 MG PR ×2 (14:37→14:58)
--- NOTE | 2020-03-03 14:44 | ED_ITS ---
HPI - SOB/Dyspnea General: Chief Complaint: Shortness of Breath/Dyspnea Stated Complaint: RESP DISTRESS Time Seen by Provider: 03/03/20 10:55 History of Present Illness: HPI Narrative: This patient is a 54-year-old female presenting today with shortness of breath. EMS reports that they were called to her home for respiratory distress. They found her blue, decreased alertness, saturations of 40%. They were unable to establish IV access. They did not attempt to intubate. They bagged her on the way in and on arrival her sats were in the 90s. Her mental status improved somewhat but she was not able to provide history. She felt warm to the touch and her rectal temperature was 102.7. I am not able to determine how long her symptoms have been going on. She has a history of CHF. She uses CPAP at night. She has super morbid obesity. She is a diabetic with questionable compliance. She also has a history of atrial fibrillation and is on Eliquis. MD elicited complaint: shortness of breath Pertinent past history: congestive heart failure and diabetes Onset (ago): unknown Severity: severe Exacerbating factors: lying flat, movement and talking Relieving factors: oxygen and upright position Known history of: congestive heart failure and diabetes Associated symptoms: Reports myalgias (Patient complains of pain all over) Review of Systems General: Reports: ROS unobtainable due to medical condition [facility] ED PFSH: Medical History Atrial fibrillation Chronic anticoagulation On hold due to vaginal bleeding Chronic kidney disease, stage III (moderate) Cr has ranged 1.6-2.1 since 11/27 Congestive heart failure COPD (chronic obstructive pulmonary disease) Diabetes mellitus type 2, noninsulin dependent Generalized anxiety disorder Hoarding disorder with excessive acquisition Hypertension Hypothyroidism last TSH in 03/30 was 6.18 Major depressive disorder, recurrent severe without psychotic features Morbid obesity with BMI of 60.0-69.9, adult DELMIS (obstructive sleep apnea) Oxygen dependent Vaginal bleeding Surgical History History of dental surgery Status post biopsy of skin Family History Other Chronic kidney disease (CKD) Diabetes Hypertension Thyroid disease Social History Smoking and tobacco status: former smoker Alcohol intake: never Marital status details: is wheelchair-bound, Physical Exam Const: GENERAL APPEARANCE: cooperative, in distress, anxious and other (Morbidly obese, wearing hospital gowns) NUTRITIONAL APPEARANCE: obese morbidly obese ORIENTATION/CONSCIOUSNESS: Yes patient obtunded HENMT: HEAD & SCALP: normal to inspection FACE & SINUS: normal facial exam Eye: GENERAL EYE: appearance normal, both eyes and all related structures Neck/C-Spine: COMMON NORMALS: supple, no meningeal signs and no JVD Chest: COMMONS NORMALS: normal inspection of the chest Resp: EFFORT & INSPECTION: Yes respiratory distress, Yes labored, Yes uses accessory muscles and Yes other (Breathing assisted with BVM) AUSCULTATION: rales (Right upper lobe) and breath sounds absent (In all lung boucher other than right upper lobe, patient laying on her left side) Cardio: COMMON NORMALS: no JVD and No murmurs present (Cardio) RATE: tachycardic RHYTHM: abnormal rhythm irregularly irregular GI: INSPECTION: Yes Abdominal wall edema, Yes Abdominal panniculus present and Yes other (Changes of candidiasis in the folds) PALPATION: Yes Tenderness to palpation present (GI) (Diffuse) Back/Pelvis: COMMON NORMALS: thoracic and lumbar spine normal to inspection Extremity: NARRATIVE EXTREMITY EXAM: Edema, changes of chronic venous stasis Neuro: COMMON NORMALS: moves all extremities, no focal motor deficits and no sensory deficits noted SENSORIUM/ORIENTATION: Yes Orientation impaired, Yes obtunded and Yes other (Mental status gradually improved with oxygenation) MENINGEAL SIGNS: Yes no meningeal signs Psych: COMMON NORMALS: mental status grossly normal, cooperative and normal affect Skin: COMMON NORMALS: no wounds and no jaundice GENERAL SKIN EXAM: erythema (Consistent with Afshan in the intertriginous areas) Course ED course: Patient was immediately put on covered precautions given the presentation of fever and dyspnea. She was put on BiPAP in a negative pressure room and improved in her vital signs as well as her mental status. She remained somewhat slow to answer and unable to provide much in the way of history. It was quite difficult to get an IV established and get x-rays and an EKG done due to her body habitus and difficulty moving her around. These were eventually done and the chest x-ray suggests fluid overload versus diffuse bilateral infiltrates which could be suggestive of COVID. White count was elevated at 6.6. She has some mild anemia with an hemoglobin of 9.6. Platelets were normal. Lymph counts were normal. CRP was markedly elevated at 105. D-dimer was 1.36. Fibrinogen is 741. Procalcitonin is 0.22. CMP shows a sodium of 132, potassium of 5.2. Her creatinine is 2.1 which is not far off her baseline. Blood sugar was 337. Calcium was 8.6. Total bilirubin was 1.6. Alk phos was 107. Other LFTs were normal. UA was negative for infection. BNP was 6372. Lactate was 6.4. EKG showed A. fib with RVR. This improved as her respiratory status improved. Tylenol was ordered for her fever. She has had some gentle hydration. Casiano was placed with return of less than 100 cc urine. COVID rapid antigen was negative however clinically I am still quite suspicious of this diagnosis. The PTC COVID test has been sent but will not result until tomorrow at the earliest. I spoke to while she is on for the ICU. She is concerned about putting the patient there as she may end up actually being COVID negative. I then spoke with Dr. Blandon about admitting her to the regular ICU and he does not feel like our facility can manage her due to her obesity and complexity of her medical history. She has been accepted to [facility] by Dr. Muñoz, ICU attending. Reevaluation(s): Reevaluation #1: At the time of transfer patient was doing dramatically better. We are able to take her off the BiPAP and she tolerated nasal cannula oxygen. Her mental status had greatly improved as well. She talk to her on the phone. She was complaining of back pain and I gave her some morphine for that. Vital Signs: Vital signs: Vital Signs Temperature 98.9 F 03/03/20 14:15 Pulse Rate 88 03/03/20 17:37 Respiratory Rate 18 03/03/20 17:37 Blood Pressure 134/68 03/03/20 17:37 Pulse Oximetry 99 03/03/20 17:37 MDM - SOB/Dyspnea MDM Narrative: Medical decision making narrative: CHF, pneumonia, sepsis, COVID-19, UTI, aspiration pneumonia, renal failure, MD, A. fib with RVR. Lab Data: Labs: Lab Results 03/03/20 03/03/20 03/03/20 Range/Units 10:50 11:00 11:00 WBC 16.6 H (4.0-10.0) 10^3/ uL RBC 3.70 L (4.1-5.3) 10^6/u L Hgb 9.6 L (11.5-15.3) g/dL Hct 35.3 L (37.0-47.0) % MCV 95.4 (81-99) fL MCH 25.9 L (28.0-34.0) pg MCHC 27.2 L (30.0-36.0) g/dL RDW 22.0 H (12.1-15.1) % Plt Count 356 (130-400) 10^3/c mm MPV 11.3 H (7.4-10.4) fL Neut % (Auto) 79.0 % Lymph % (Auto) 13.8 % [place] % (Auto) 5.3 % Eos % (Auto) 1.3 % Baso % (Auto) 0.6 % Neut # (Auto) 12.22 H (1.8-7.7) 10^3/u L Lymph # (Auto) 2.3 (0.8-4.8) 10^3/u L [place] # (Auto) 0.9 (0.2-0.9) 10^3/u L Eos # (Auto) 0.2 (0.0-0.8) 10^3/u L Baso # (Auto) 0.1 (0.0-0.1) 10^3/u L Nucleated RBC % (a uto) 0.8 % Nucleated RBCs # 0.1 /100WBC PT 15.20 H (12.1-14.9) SECO NDS INR 1.16 (0.8-1.2) Fibrinogen (174-498) mg/dL D-Dimer (0-0.59) ug/mIFE U Specimen Type Arterial Sample Site Radial, right ABG pH 7.08 L* (7.35-7.45) ABG pCO2 79.9 H* (35-45) mmHg ABG pO2 81.1 (80.0-100.0) mmH g ABG HCO3 23.6 (22-26) mmol/L ABG O2 Saturation 88.7 ABG Base Excess -7.2 L (-2.0-2.0) mmol/ L Elian Test Pos A-a O2 Gradient Not Reportable Hematocrit 30.6 L (37-47) % Hgb O2 Saturation 86.4 L (95-100) % Carboxyhemoglobin 1.6 (0.4-20.1) %THgb Methemoglobin 1.1 (0.4-1.5) % Total Hemoglobin 10.0 L (12-16) g/dL Sodium 136.0 (131-143) mmol/L Potassium 5.1 H (3.5-5.0) mmol/L Glucose 328.0 H (70-115) mg/dL Ionized Calcium 1.2 (1.1-1.4) mmol/L O2 Delivery Device Ambu O2 Liters/Min 15.0 % FiO2 % Hedge Fund Principal ID Cak Chloride (98-107) mmol/L Carbon Dioxide (22-29) mmol/L Anion Gap (5-19) BUN (6-20) mg/dL Creatinine (0.5-0.9) mg/dL GFR Calculation (90-130) mL/min Calculated Osmolal ity (285-295) mOsm/k g Lactic Acid (0.5-2.2) mmol/L Lactic Acid (Sepsi s) Calcium (8.5-10.5) mg/dL Ferritin (15-150) ng/mL Total Bilirubin (0.15-1.2) mg/dL AST (0-32) U/L ALT (0-33) U/L Alkaline Phosphata se (35-105) IU/L Lactate Dehydrogen ase (135-214) U/L C-Reactive Protein (0.0-4.9) mg/L NT-Pro-B Natriuret Pep (0-125) pg/mL Total Protein (6.6-8.7) g/dL Albumin (3.5-5.2) g/dL Globulin (1.3-4.6) g/dL Procalcitonin (0-0.5) ng/mL Urine Color (Yellow) Urine Appearance (CLEAR) Urine pH (5-7) Ur Specific Gravit y (1.005-1.030) Urine Protein (Negative) Urine Glucose (UA) (Normal) Urine Ketones (Negative) Urine Blood (Negative) Urine Nitrate (Negative) Urine Bilirubin (NEGATIVE) Prot Sulfosalicyli c Acd (Negative) Urine Urobilinogen (Negative) mg/dL Ur Leukocyte [place] ase (Negative) Urine RBC (0-2) /hpf Urine WBC (0-5) /hpf Ur Squamous Epith Cells (0-5) Amorphous Sediment Urine Bacteria (NONE) Coarse Granular Ca sts /lpf SARS-CoV-2 Ag (Rap id) (Negative) 03/03/20 03/03/20 03/03/20 Range/Units 11:00 11:00 11:00 WBC (4.0-10.0) 10^3/ uL RBC (4.1-5.3) 10^6/u L Hgb (11.5-15.3) g/dL Hct (37.0-47.0) % MCV (81-99) fL MCH (28.0-34.0) pg MCHC (30.0-36.0) g/dL RDW (12.1-15.1) % Plt Count (130-400) 10^3/c mm MPV (7.4-10.4) fL Neut % (Auto) % Lymph % (Auto) % [place] % (Auto) % Eos % (Auto) % Baso % (Auto) % Neut # (Auto) (1.8-7.7) 10^3/u L Lymph # (Auto) (0.8-4.8) 10^3/u L [place] # (Auto) (0.2-0.9) 10^3/u L Eos # (Auto) (0.0-0.8) 10^3/u L Baso # (Auto) (0.0-0.1) 10^3/u L Nucleated RBC % (a uto) % Nucleated RBCs # /100WBC PT (12.1-14.9) SECO NDS INR (0.8-1.2) Fibrinogen 741 H (174-498) mg/dL D-Dimer 1.36 H (0-0.59) ug/mIFE U Specimen Type Sample Site ABG pH (7.35-7.45) ABG pCO2 (35-45) mmHg ABG pO2 (80.0-100.0) mmH g ABG HCO3 (22-26) mmol/L ABG O2 Saturation ABG Base Excess (-2.0-2.0) mmol/ L Elian Test A-a O2 Gradient Hematocrit (37-47) % Hgb O2 Saturation (95-100) % Carboxyhemoglobin (0.4-20.1) %THgb Methemoglobin (0.4-1.5) % Total Hemoglobin (12-16) g/dL Sodium 132 L (131-143) mmol/L Potassium 5.2 H (3.5-5.0) mmol/L Glucose 337 H (70-115) mg/dL Ionized Calcium (1.1-1.4) mmol/L O2 Delivery Device O2 Liters/Min % FiO2 % Hedge Fund Principal ID Chloride 96 L (98-107) mmol/L Carbon Dioxide 23 (22-29) mmol/L Anion Gap 18.2 (5-19) BUN 14 (6-20) mg/dL Creatinine 2.1 H (0.5-0.9) mg/dL GFR Calculation 24.5 L (90-130) mL/min Calculated Osmolal ity 283 L (285-295) mOsm/k g Lactic Acid 6.4 H* (0.5-2.2) mmol/L Lactic Acid (Sepsi s) Calcium 8.6 (8.5-10.5) mg/dL Ferritin (15-150) ng/mL Total Bilirubin 1.6 H (0.15-1.2) mg/dL AST 27 (0-32) U/L ALT 22 (0-33) U/L Alkaline Phosphata se 107 H (35-105) IU/L Lactate Dehydrogen ase (135-214) U/L C-Reactive Protein (0.0-4.9) mg/L NT-Pro-B Natriuret Pep 6372 H (0-125) pg/mL Total Protein 6.8 (6.6-8.7) g/dL Albumin 3.4 L (3.5-5.2) g/dL Globulin 3.4 (1.3-4.6) g/dL Procalcitonin (0-0.5) ng/mL Urine Color (Yellow) Urine Appearance (CLEAR) Urine pH (5-7) Ur Specific Gravit y (1.005-1.030) Urine Protein (Negative) Urine Glucose (UA) (Normal) Urine Ketones (Negative) Urine Blood (Negative) Urine Nitrate (Negative) Urine Bilirubin (NEGATIVE) Prot Sulfosalicyli c Acd (Negative) Urine Urobilinogen (Negative) mg/dL Ur Leukocyte [place] ase (Negative) Urine RBC (0-2) /hpf Urine WBC (0-5) /hpf Ur Squamous Epith Cells (0-5) Amorphous Sediment Urine Bacteria (NONE) Coarse Granular Ca sts /lpf SARS-CoV-2 Ag (Rap id) (Negative) 03/03/20 03/03/20 03/03/20 Range/Units 11:00 11:00 11:35 WBC (4.0-10.0) 10^3/ uL RBC (4.1-5.3) 10^6/u L Hgb (11.5-15.3) g/dL Hct (37.0-47.0) % MCV (81-99) fL MCH (28.0-34.0) pg MCHC (30.0-36.0) g/dL RDW (12.1-15.1) % Plt Count (130-400) 10^3/c mm MPV (7.4-10.4) fL Neut % (Auto) % Lymph % (Auto) % [place] % (Auto) % Eos % (Auto) % Baso % (Auto) % Neut # (Auto) (1.8-7.7) 10^3/u L Lymph # (Auto) (0.8-4.8) 10^3/u L [place] # (Auto) (0.2-0.9) 10^3/u L Eos # (Auto) (0.0-0.8) 10^3/u L Baso # (Auto) (0.0-0.1) 10^3/u L Nucleated RBC % (a uto) % Nucleated RBCs # /100WBC PT (12.1-14.9) SECO NDS INR (0.8-1.2) Fibrinogen (174-498) mg/dL D-Dimer (0-0.59) ug/mIFE U Specimen Type Arterial Sample Site Radial, left ABG pH 7.37 (7.35-7.45) ABG pCO2 39.8 (35-45) mmHg ABG pO2 291.0 H (80.0-100.0) mmH g ABG HCO3 23.2 (22-26) mmol/L ABG O2 Saturation > 100.0 ABG Base Excess -1.9 (-2.0-2.0) mmol/ L Elian Test Pos A-a O2 Gradient 29.2 H Hematocrit 28.5 L (37-47) % Hgb O2 Saturation 97.5 (95-100) % Carboxyhemoglobin 1.6 (0.4-20.1) %THgb Methemoglobin 1.2 (0.4-1.5) % Total Hemoglobin 9.3 L (12-16) g/dL Sodium 134.0 (131-143) mmol/L Potassium 4.7 (3.5-5.0) mmol/L Glucose 309.0 H (70-115) mg/dL Ionized Calcium 1.1 (1.1-1.4) mmol/L O2 Delivery Device Bipap O2 Liters/Min % FiO2 80.0 % Hedge Fund Principal ID Cak Chloride (98-107) mmol/L Carbon Dioxide (22-29) mmol/L Anion Gap (5-19) BUN (6-20) mg/dL Creatinine (0.5-0.9) mg/dL GFR Calculation (90-130) mL/min Calculated Osmolal ity (285-295) mOsm/k g Lactic Acid (0.5-2.2) mmol/L Lactic Acid (Sepsi s) Calcium (8.5-10.5) mg/dL Ferritin 121 (15-150) ng/mL Total Bilirubin (0.15-1.2) mg/dL AST (0-32) U/L ALT (0-33) U/L Alkaline Phosphata se (35-105) IU/L Lactate Dehydrogen ase 282 H (135-214) U/L C-Reactive Protein 105.5 H (0.0-4.9) mg/L NT-Pro-B Natriuret Pep (0-125) pg/mL Total Protein (6.6-8.7) g/dL Albumin (3.5-5.2) g/dL Globulin (1.3-4.6) g/dL Procalcitonin 0.22 (0-0.5) ng/mL Urine Color (Yellow) Urine Appearance (CLEAR) Urine pH (5-7) Ur Specific Gravit y (1.005-1.030) Urine Protein (Negative) Urine Glucose (UA) (Normal) Urine Ketones (Negative) Urine Blood (Negative) Urine Nitrate (Negative) Urine Bilirubin (NEGATIVE) Prot Sulfosalicyli c Acd (Negative) Urine Urobilinogen (Negative) mg/dL Ur Leukocyte [place] ase (Negative) Urine RBC (0-2) /hpf Urine WBC (0-5) /hpf Ur Squamous Epith Cells (0-5) Amorphous Sediment Urine Bacteria (NONE) Coarse Granular Ca sts /lpf SARS-CoV-2 Ag (Rap id) Negative (Negative) 03/03/20 03/03/20 Range/Units 12:13 13:35 WBC (4.0-10.0) 10^3/ uL RBC (4.1-5.3) 10^6/u L Hgb (11.5-15.3) g/dL Hct (37.0-47.0) % MCV (81-99) fL MCH (28.0-34.0) pg MCHC (30.0-36.0) g/dL RDW (12.1-15.1) % Plt Count (130-400) 10^3/c mm MPV (7.4-10.4) fL Neut % (Auto) % Lymph % (Auto) % [place] % (Auto) % Eos % (Auto) % Baso % (Auto) % Neut # (Auto) (1.8-7.7) 10^3/u L Lymph # (Auto) (0.8-4.8) 10^3/u L [place] # (Auto) (0.2-0.9) 10^3/u L Eos # (Auto) (0.0-0.8) 10^3/u L Baso # (Auto) (0.0-0.1) 10^3/u L Nucleated RBC % (a uto) % Nucleated RBCs # /100WBC PT (12.1-14.9) SECO NDS INR (0.8-1.2) Fibrinogen (174-498) mg/dL D-Dimer (0-0.59) ug/mIFE U Specimen Type Sample Site ABG pH (7.35-7.45) ABG pCO2 (35-45) mmHg ABG pO2 (80.0-100.0) mmH g ABG HCO3 (22-26) mmol/L ABG O2 Saturation ABG Base Excess (-2.0-2.0) mmol/ L Elian Test A-a O2 Gradient Hematocrit (37-47) % Hgb O2 Saturation (95-100) % Carboxyhemoglobin (0.4-20.1) %THgb Methemoglobin (0.4-1.5) % Total Hemoglobin (12-16) g/dL Sodium (131-143) mmol/L Potassium (3.5-5.0) mmol/L Glucose (70-115) mg/dL Ionized Calcium (1.1-1.4) mmol/L O2 Delivery Device O2 Liters/Min % FiO2 % Hedge Fund Principal ID Chloride (98-107) mmol/L Carbon Dioxide (22-29) mmol/L Anion Gap (5-19) BUN (6-20) mg/dL Creatinine (0.5-0.9) mg/dL GFR Calculation (90-130) mL/min Calculated Osmolal ity (285-295) mOsm/k g Lactic Acid (0.5-2.2) mmol/L Lactic Acid (Sepsi s) Cancelled Calcium (8.5-10.5) mg/dL Ferritin (15-150) ng/mL Total Bilirubin (0.15-1.2) mg/dL AST (0-32) U/L ALT (0-33) U/L Alkaline Phosphata se (35-105) IU/L Lactate Dehydrogen ase (135-214) U/L C-Reactive Protein (0.0-4.9) mg/L NT-Pro-B Natriuret Pep (0-125) pg/mL Total Protein (6.6-8.7) g/dL Albumin (3.5-5.2) g/dL Globulin (1.3-4.6) g/dL Procalcitonin (0-0.5) ng/mL Urine Color Yellow (Yellow) Urine Appearance Clear (CLEAR) Urine pH 8 H (5-7) Ur Specific Gravit y 1.010 (1.005-1.030) Urine Protein 1+ H (Negative) Urine Glucose (UA) Trace H (Normal) Urine Ketones Negative (Negative) Urine Blood Neg (Negative) Urine Nitrate Negative (Negative) Urine Bilirubin Neg (NEGATIVE) Prot Sulfosalicyli c Acd Positive (Negative) Urine Urobilinogen Norm (Negative) mg/dL Ur Leukocyte [place] ase Negative (Negative) Urine RBC None (0-2) /hpf Urine WBC 0-4 H (0-5) /hpf Ur Squamous Epith Cells 5-10 H (0-5) Amorphous Sediment Not Reportable Urine Bacteria Trace (NONE) Coarse Granular Ca sts 0-4 H /lpf SARS-CoV-2 Ag (Rap id) (Negative) Critical Care Time Critical Care Time: Critical Care Time: Yes Total Critical Care Time: 40 Attestation: I provided critical care time to this patient in the total of 40 minutes. This involved multiple re-evaluations and close monitoring. I remained in the room with the patient for most of this time when she first arrived due to concerns for failure to improve on BiPAP. ABGs were done and repeated and interpreted by me. Chest x-ray was done and I assisted in the positioning of this patient given her size. EKG was interpreted. Multiple consultations were made. Prior medical records were reviewed. Critical medi cations were administered. Discharge Plan Discharge Patient Disposition: Xfer Other Referrals: Mervat Nguyen [Primary Care Provider] - Discharge Date/Time: 03/03/20 17:49 Coding Level of Care Code ED Coal Chute Worker for Chg Fwd Exam Comprehensive
[2020-03-03] MEDS: morphine 4 mg/mL SDV 1 mL IVP (17:34)
[2020-03-03] MEDS: ondansetron 2 mg/ML SDV 2 mL 4 MG IVP (17:35)
[2020-03-04 15:53] LABS: Coronavirus Lab Test PTC Negative
--- NOTE | 2020-03-04 16:20 | PC.NURSE ---
Estrella Flannery called and notified DINESH Anne of pt negative COVID results.
== END 2020-03-03 17:49 | disposition other institution (70) ==
PROVIDERS: Emergency Medicine; Emergency Provider Emergency Medicine; PCP Internal Medicine
DX: R06.02 Shortness of breath (principal); I48.91 Unspecified atrial fibrillation; I13.0 Hypertensive heart and chronic kidney disease with heart failure and stage 1 through stage 4 chronic kidney disease, or unspecified chronic kidney disease; E11.22 Type 2 diabetes mellitus with diabetic chronic kidney disease; N18.3 Chronic kidney disease, stage 3 (moderate); I50.9 Heart failure, unspecified; J44.9 Chronic obstructive pulmonary disease, unspecified; Z87.891 Personal history of nicotine dependence
CPT/HCPCS: 12345; 36600; 51702; 71045; 80051; 80053; 81001; 82728; 82810; 83605; 83615; 83880; 83986; 84145; 85025; 85378; 85384; 85610; 86140; 87040; 87426; 87635; 93005; 94660; 96365; 96367; 96372; 96375; 99283; 99291; J0456; J0696; J1100; J1650; J2270; J2405; J7050

== ENCOUNTER 2020-06-18 15:17 | Inpatient (IN) | payer MEDICARE, MEDICAID, SELFPAY ==
[2020-06-18] VITALS (29 sets, daily range): BP systolic 92–117; BP diastolic 63–85; PULSE 93–127; RESP 13–30; TEMP 36.2–36.5; O2SAT 89–100; BMI 60.2
--- NOTE | 2020-06-18 15:48 | ECG_ITS ---
[facility] Test Date: 2020-06-18 Pat Name: Ana Lilia Miller Department: Room: Gender: Female Grips: : 1965 Requested By: Edy Prather Order Number: [id number] [place] MD: Renee Gutierrez M.D. Measurements Intervals [place] Rate: 116 P: UT: QRS: 109 QRSD: 82 T: 55 QT: 343 QTc: 477 Interpretive Statements ATRIAL FIBRILLATION WITH RAPID VENTRICULAR RESPONSE RIGHT AXIS DEVIATION [QRS AXIS > 100] Compared to ECG 03/03/2020 11:54:41 No significant changes Electronically Signed On 06-18-2020 21:02:42 SWAGING MACHINE ADJUSTER by Renee Gutierrez M.D. [id number]
--- NOTE | 2020-06-18 15:48 | XRR_ITS ---
PROCEDURE INFORMATION: Exam: XR Chest, 1 View Exam date and time: 06/18/2020 4:06 PM Age: 55 years old Clinical indication: Dyspnea; Patient HX: C/O chest discomfort/difficulty breathing. Visual changes, light-headed. HX of chf and copd; Additional info: Chest pain TECHNIQUE: Imaging protocol: XR of the chest Views: 1 view. COMPARISON: CR XR chest 1V portable [id number] 03/03/2020 11:44 AM FINDINGS: Lungs: Low lung volumes seen. No consolidation. Pleural space: Unremarkable. No pleural effusion. No pneumothorax. Heart/Mediastinum: Unremarkable. No cardiomegaly. Bones/joints: Unremarkable. XR/XR chest 1V portable [id number] IMPRESSION: No acute findings.
--- NOTE | 2020-06-18 16:05 | W.ED.CHESTPA ---
Documented by User: Edy Mott DO 06/19/20 07:29 HPI - Chest Pain General: Chief Complaint: Chest Pain Stated Complaint: CHEST PAIN, DIZZY Time Seen by Provider: 06/18/20 15:48 History of Present Illness: HPI narrative: 55-year-old female presents to the emergency room with complaint of chest discomfort and difficulty breathing. Patient was over getting registered to be seen at [facility] the nurses doing intake in triage she states she began having visual changes lightheadedness numbness tingling chest discomfort she has chest pain but only with deep inspiration. She has chronic's COPD and congestive heart failure is on 6 L/min by nasal cannula. She notes lately she has had an increase from her baseline cough with slight sputum production. She denies any vomiting or diarrhea no flulike symptoms. MD complaint: chest discomfort Onset (ago): minute(s) Timing of current episode: episodic Onset: during rest Pain location: left chest Pain radiation: none Severity: moderate Relieving factors: nothing Exacerbating factors: inspiration Associated symptoms: Reports dyspnea; Deny abdominal pain, diaphoresis, fever(s), leg edema, nausea, palpitations, sense of impending doom, syncope or vomiting Treatment prior to arrival: none Review of Systems Const: Denies: fever(s) or diaphoresis ENMT: Denies: throat pain, ear or mastoid pain, nasal discharge or nasal congestion Card: Denies: palpitations or syncope Resp: Reports: dyspnea GI: Denies: abdominal pain, nausea or vomiting : Denies: flank pain, difficulty voiding, dysuria, urinary frequency or urinary urgency Skin/Breast: Denies: rash or pruritus [facility] ED PFSH: Medical History (Updated 06/18/20 @ 20:53 by Joaquín Chang MD) Atrial fibrillation Chronic anticoagulation On hold due to vaginal bleeding Chronic kidney disease, stage III (moderate) Cr has ranged 1.6-2.1 since 11/27 Congestive heart failure COPD (chronic obstructive pulmonary disease) Diabetes mellitus type 2, noninsulin dependent Generalized anxiety disorder Hoarding disorder with excessive acquisition Hypertension Hypothyroidism last TSH in 03/30 was 6.18 Major depressive disorder, recurrent severe without psychotic features Morbid obesity with BMI of 60.0-69.9, adult DELMIS (obstructive sleep apnea) Oxygen dependent Surgical History History of dental surgery Status post biopsy of skin Family History Other Chronic kidney disease (CKD) Diabetes Hypertension Thyroid disease Social History Smoking and tobacco status: former smoker Alcohol intake: never Marital status details: is wheelchair-bound, Current gender identity: Female Physical Exam Const: COMMON NORMALS: no acute distress GENERAL APPEARANCE: cooperative and comfortable NUTRITIONAL APPEARANCE: obese morbidly obese ORIENTATION/CONSCIOUSNESS: Yes awake, Yes oriented to person, Yes oriented to place and Yes oriented to time HENMT: COMMON NORMALS: normocephalic, atraumatic and hearing grossly normal bilaterally HEAD & SCALP: normocephalic and atraumatic Neck/C-Spine: COMMON NORMALS: no JVD Resp: COMMON NORMALS: normal respiratory effort, No retractions, No use of accessory muscles and clear to auscultation bilaterally AUSCULTATION: clear to auscultation bilaterally Cardio: COMMON NORMALS: no JVD, regular rate, regular rhythm and No murmurs present (Cardio) RATE: regular rate RHYTHM: regular rhythm GI: COMMON NORMALS: Soft to palpation and No hepatosplenomegaly present AUSCULTATION: Yes normoactive bowel sounds PALPATION: Yes Soft to palpation, No Tenderness to palpation present (GI), No Guarding due to palpation present (GI) and Yes No hepatosplenomegaly present Extremity: COMMON NORMALS: normal to inspection, capillary refill normal, no clubbing, cyanosis or edema, no calf tenderness and no pedal edema Neuro: SENSORIUM/ORIENTATION: Yes oriented to person, Yes oriented to place and Yes oriented to time Skin: COMMON NORMALS: no rashes or lesions noted GENERAL SKIN EXAM: no rashes or lesions noted Course Vital Signs: Vital signs: Vital Signs Temperature 98.3 F 06/19/20 04:58 Pulse Rate 96 06/19/20 04:58 Respiratory Rate 15 06/19/20 04:58 Blood Pressure 103/61 06/19/20 04:58 Pulse Oximetry 98 06/19/20 04:58 MDM - Chest Pain MDM Narrative: Medical decision making narrative: Care turned over to Dr Griffiths at change of shift, please see his notes for fonal diagnosis and disposition. Lab Data: Labs: Lab Results 06/18/20 06/18/20 06/18/20 Range/Units 16:33 16:33 16:33 WBC 14.3 H (4.0-10.0) 10^3/ uL RBC 5.06 (4.1-5.3) 10^6/u L Hgb 12.2 (11.5-15.3) g/dL Hct 40.9 (37.0-47.0) % MCV 80.8 L (81-99) fL MCH 24.1 L (28.0-34.0) pg MCHC 29.8 L (30.0-36.0) g/dL RDW 17.9 H (12.1-15.1) % Plt Count 348 (130-400) 10^3/c mm MPV 11.4 H (7.4-10.4) fL Neut % (Auto) 86.0 % Lymph % (Auto) 7.5 % [place] % (Auto) 3.6 % Eos % (Auto) 1.7 % Baso % (Auto) 0.4 % Neut # (Auto) 12.28 H (1.8-7.7) 10^3/u L Lymph # (Auto) 1.1 (0.8-4.8) 10^3/u L [place] # (Auto) 0.5 (0.2-0.9) 10^3/u L Eos # (Auto) 0.3 (0.0-0.8) 10^3/u L Baso # (Auto) 0.1 (0.0-0.1) 10^3/u L Nucleated RBC % (a uto) 0 % Nucleated RBCs # 0.0 /100WBC D-Dimer (0-0.59) ug/mIFE U Sodium 132 L (136-145) mmol/L Potassium 4.3 (3.5-5.1) mmol/L Chloride 92 L (98-107) mmol/L Carbon Dioxide 26 (22-29) mmol/L Anion Gap 18.3 (5-19) BUN 18 (6-20) mg/dL Creatinine 1.7 H (0.5-0.9) mg/dL GFR Calculation 31.2 L (90-130) mL/min Glucose 450 H (65-115) mg/dL POC Glucose (70-110) mg/dL Calculated Osmolal ity 295 (285-295) mOsm/k g Calcium 9.5 (8.5-10.5) mg/dL Total Bilirubin 1.0 (0.15-1.2) mg/dL AST 11 (0-32) U/L ALT 11 (0-33) U/L Alkaline Phosphata se 120 H (35-105) IU/L Troponin T Baselin e 41 H (0-10) ng/L Troponin T 120 Min [place] (0-10) ng/L Delta Troponin T (0-10) ABS# NT-Pro-B Natriuret Pep (0-125) pg/mL Total Protein 7.3 (6.6-8.7) g/dL Albumin 4.1 (3.5-5.2) g/dL Globulin 3.2 (1.3-4.6) g/dL 06/18/20 06/18/20 06/18/20 Range/Units 16:33 16:33 16:52 WBC (4.0-10.0) 10^3/ uL RBC (4.1-5.3) 10^6/u L Hgb (11.5-15.3) g/dL Hct (37.0-47.0) % MCV (81-99) fL MCH (28.0-34.0) pg MCHC (30.0-36.0) g/dL RDW (12.1-15.1) % Plt Count (130-400) 10^3/c mm MPV (7.4-10.4) fL Neut % (Auto) % Lymph % (Auto) % [place] % (Auto) % Eos % (Auto) % Baso % (Auto) % Neut # (Auto) (1.8-7.7) 10^3/u L Lymph # (Auto) (0.8-4.8) 10^3/u L [place] # (Auto) (0.2-0.9) 10^3/u L Eos # (Auto) (0.0-0.8) 10^3/u L Baso # (Auto) (0.0-0.1) 10^3/u L Nucleated RBC % (a uto) % Nucleated RBCs # /100WBC D-Dimer 0.37 (0-0.59) ug/mIFE U Sodium (136-145) mmol/L Potassium (3.5-5.1) mmol/L Chloride (98-107) mmol/L Carbon Dioxide (22-29) mmol/L Anion Gap (5-19) BUN (6-20) mg/dL Creatinine (0.5-0.9) mg/dL GFR Calculation (90-130) mL/min Glucose (65-115) mg/dL POC Glucose 381 (70-110) mg/dL Calculated Osmolal ity (285-295) mOsm/k g Calcium (8.5-10.5) mg/dL Total Bilirubin (0.15-1.2) mg/dL AST (0-32) U/L ALT (0-33) U/L Alkaline Phosphata se (35-105) IU/L Troponin T Baselin e (0-10) ng/L Troponin T 120 Min [place] (0-10) ng/L Delta Troponin T (0-10) ABS# NT-Pro-B Natriuret Pep 1153 H (0-125) pg/mL Total Protein (6.6-8.7) g/dL Albumin (3.5-5.2) g/dL Globulin (1.3-4.6) g/dL 06/18/20 Range/Units 19:05 WBC (4.0-10.0) 10^3/ uL RBC (4.1-5.3) 10^6/u L Hgb (11.5-15.3) g/dL Hct (37.0-47.0) % MCV (81-99) fL MCH (28.0-34.0) pg MCHC (30.0-36.0) g/dL RDW (12.1-15.1) % Plt Count (130-400) 10^3/c mm MPV (7.4-10.4) fL Neut % (Auto) % Lymph % (Auto) % [place] % (Auto) % Eos % (Auto) % Baso % (Auto) % Neut # (Auto) (1.8-7.7) 10^3/u L Lymph # (Auto) (0.8-4.8) 10^3/u L [place] # (Auto) (0.2-0.9) 10^3/u L Eos # (Auto) (0.0-0.8) 10^3/u L Baso # (Auto) (0.0-0.1) 10^3/u L Nucleated RBC % (a uto) % Nucleated RBCs # /100WBC D-Dimer (0-0.59) ug/mIFE U Sodium (136-145) mmol/L Potassium (3.5-5.1) mmol/L Chloride (98-107) mmol/L Carbon Dioxide (22-29) mmol/L Anion Gap (5-19) BUN (6-20) mg/dL Creatinine (0.5-0.9) mg/dL GFR Calculation (90-130) mL/min Glucose (65-115) mg/dL POC Glucose (70-110) mg/dL Calculated Osmolal ity (285-295) mOsm/k g Calcium (8.5-10.5) mg/dL Total Bilirubin (0.15-1.2) mg/dL AST (0-32) U/L ALT (0-33) U/L Alkaline Phosphata se (35-105) IU/L Troponin T Baselin e (0-10) ng/L Troponin T 120 Min [place] 34.17 H (0-10) ng/L Delta Troponin T -6.83 L (0-10) ABS# NT-Pro-B Natriuret Pep (0-125) pg/mL Total Protein (6.6-8.7) g/dL Albumin (3.5-5.2) g/dL Globulin (1.3-4.6) g/dL Discharge Plan Discharge Admit Provider: Joaquín Chang Sign Out Sign Out Data: Patient Sign Out occurred on 06/18/20 at 18:17. Patient's care was discussed, and care was transferred from to Gaby Griffiths. Coding Level of Care Code ED Transcribing Machine Operator for Lilyg Fwd Exam Comprehensive Documented by User: Gaby Ju Griffiths 06/19/20 05:15 HPI - Chest Pain General: Chief Complaint: Chest Pain Stated Complaint: CHEST PAIN, DIZZY Time Seen by Provider: 06/18/20 15:48 PFSH ED PFSH: Medical History (Updated 06/18/20 @ 20:53 by Joaquín Chang MD) Atrial fibrillation Chronic anticoagulation On hold due to vaginal bleeding Chronic kidney disease, stage III (moderate) Cr has ranged 1.6-2.1 since 11/27 Congestive heart failure COPD (chronic obstructive pulmonary disease) Diabetes mellitus type 2, noninsulin dependent Generalized anxiety disorder Hoarding disorder with excessive acquisition Hypertension Hypothyroidism last TSH in 03/30 was 6.18 Major depressive disorder, recurrent severe without psychotic features Morbid obesity with BMI of 60.0-69.9, adult DELMIS (obstructive sleep apnea) Oxygen dependent Surgical History History of dental surgery Status post biopsy of skin Family History Other Chronic kidney disease (CKD) Diabetes Hypertension Thyroid disease Social History Smoking and tobacco status: former smoker Alcohol intake: never Marital status details: is wheelchair-bound, Current gender identity: Female Course Vital Signs: Vital signs: Vital Signs Temperature 98.3 F 06/19/20 04:58 Pulse Rate 96 06/19/20 04:58 Respiratory Rate 15 06/19/20 04:58 Blood Pressure 103/61 06/19/20 04:58 Pulse Oximetry 98 06/19/20 04:58 MDM - Chest Pain Lab Data: Labs: Lab Results 06/18/20 06/18/20 06/18/20 Range/Units 16:33 16:33 16:33 WBC 14.3 H (4.0-10.0) 10^3/ uL RBC 5.06 (4.1-5.3) 10^6/u L Hgb 12.2 (11.5-15.3) g/dL Hct 40.9 (37.0-47.0) % MCV 80.8 L (81-99) fL MCH 24.1 L (28.0-34.0) pg MCHC 29.8 L (30.0-36.0) g/dL RDW 17.9 H (12.1-15.1) % Plt Count 348 (130-400) 10^3/c mm MPV 11.4 H (7.4-10.4) fL Neut % (Auto) 86.0 % Lymph % (Auto) 7.5 % [place] % (Auto) 3.6 % Eos % (Auto) 1.7 % Baso % (Auto) 0.4 % Neut # (Auto) 12.28 H (1.8-7.7) 10^3/u L Lymph # (Auto) 1.1 (0.8-4.8) 10^3/u L [place] # (Auto) 0.5 (0.2-0.9) 10^3/u L Eos # (Auto) 0.3 (0.0-0.8) 10^3/u L Baso # (Auto) 0.1 (0.0-0.1) 10^3/u L Nucleated RBC % (a uto) 0 % Nucleated RBCs # 0.0 /100WBC D-Dimer (0-0.59) ug/mIFE U Sodium 132 L (136-145) mmol/L Potassium 4.3 (3.5-5.1) mmol/L Chloride 92 L (98-107) mmol/L Carbon Dioxide 26 (22-29) mmol/L Anion Gap 18.3 (5-19) BUN 18 (6-20) mg/dL Creatinine 1.7 H (0.5-0.9) mg/dL GFR Calculation 31.2 L (90-130) mL/min Glucose 450 H (65-115) mg/dL POC Glucose (70-110) mg/dL Calculated Osmolal ity 295 (285-295) mOsm/k g Calcium 9.5 (8.5-10.5) mg/dL Total Bilirubin 1.0 (0.15-1.2) mg/dL AST 11 (0-32) U/L ALT 11 (0-33) U/L Alkaline Phosphata se 120 H (35-105) IU/L Troponin T Baselin e 41 H (0-10) ng/L Troponin T 120 Min [place] (0-10) ng/L Delta Troponin T (0-10) ABS# NT-Pro-B Natriuret Pep (0-125) pg/mL Total Protein 7.3 (6.6-8.7) g/dL Albumin 4.1 (3.5-5.2) g/dL Globulin 3.2 (1.3-4.6) g/dL 06/18/20 06/18/20 06/18/20 Range/Units 16:33 16:33 16:52 WBC (4.0-10.0) 10^3/ uL RBC (4.1-5.3) 10^6/u L Hgb (11.5-15.3) g/dL Hct (37.0-47.0) % MCV (81-99) fL MCH (28.0-34.0) pg MCHC (30.0-36.0) g/dL RDW (12.1-15.1) % Plt Count (130-400) 10^3/c mm MPV (7.4-10.4) fL Neut % (Auto) % Lymph % (Auto) % [place] % (Auto) % Eos % (Auto) % Baso % (Auto) % Neut # (Auto) (1.8-7.7) 10^3/u L Lymph # (Auto) (0.8-4.8) 10^3/u L [place] # (Auto) (0.2-0.9) 10^3/u L Eos # (Auto) (0.0-0.8) 10^3/u L Baso # (Auto) (0.0-0.1) 10^3/u L Nucleated RBC % (a uto) % Nucleated RBCs # /100WBC D-Dimer 0.37 (0-0.59) ug/mIFE U Sodium (136-145) mmol/L Potassium (3.5-5.1) mmol/L Chloride (98-107) mmol/L Carbon Dioxide (22-29) mmol/L Anion Gap (5-19) BUN (6-20) mg/dL Creatinine (0.5-0.9) mg/dL GFR Calculation (90-130) mL/min Glucose (65-115) mg/dL POC Glucose 381 (70-110) mg/dL Calculated Osmolal ity (285-295) mOsm/k g Calcium (8.5-10.5) mg/dL Total Bilirubin (0.15-1.2) mg/dL AST (0-32) U/L ALT (0-33) U/L Alkaline Phosphata se (35-105) IU/L Troponin T Baselin e (0-10) ng/L Troponin T 120 Min [place] (0-10) ng/L Delta Troponin T (0-10) ABS# NT-Pro-B Natriuret Pep 1153 H (0-125) pg/mL Total Protein (6.6-8.7) g/dL Albumin (3.5-5.2) g/dL Globulin (1.3-4.6) g/dL 06/18/20 Range/Units 19:05 WBC (4.0-10.0) 10^3/ uL RBC (4.1-5.3) 10^6/u L Hgb (11.5-15.3) g/dL Hct (37.0-47.0) % MCV (81-99) fL MCH (28.0-34.0) pg MCHC (30.0-36.0) g/dL RDW (12.1-15.1) % Plt Count (130-400) 10^3/c mm MPV (7.4-10.4) fL Neut % (Auto) % Lymph % (Auto) % [place] % (Auto) % Eos % (Auto) % Baso % (Auto) % Neut # (Auto) (1.8-7.7) 10^3/u L Lymph # (Auto) (0.8-4.8) 10^3/u L [place] # (Auto) (0.2-0.9) 10^3/u L Eos # (Auto) (0.0-0.8) 10^3/u L Baso # (Auto) (0.0-0.1) 10^3/u L Nucleated RBC % (a uto) % Nucleated RBCs # /100WBC D-Dimer (0-0.59) ug/mIFE U Sodium (136-145) mmol/L Potassium (3.5-5.1) mmol/L Chloride (98-107) mmol/L Carbon Dioxide (22-29) mmol/L Anion Gap (5-19) BUN (6-20) mg/dL Creatinine (0.5-0.9) mg/dL GFR Calculation (90-130) mL/min Glucose (65-115) mg/dL POC Glucose (70-110) mg/dL Calculated Osmolal ity (285-295) mOsm/k g Calcium (8.5-10.5) mg/dL Total Bilirubin (0.15-1.2) mg/dL AST (0-32) U/L ALT (0-33) U/L Alkaline Phosphata se (35-105) IU/L Troponin T Baselin e (0-10) ng/L Troponin T 120 Min [place] 34.17 H (0-10) ng/L Delta Troponin T -6.83 L (0-10) ABS# NT-Pro-B Natriuret Pep (0-125) pg/mL Total Protein (6.6-8.7) g/dL Albumin (3.5-5.2) g/dL Globulin (1.3-4.6) g/dL Discharge Plan Discharge Admit Provider: Joaquín Chang Sign Out Sign Out Data: Patient Sign Out occurred on 06/18/20 at 18:17. Patient's care was discussed, and care was transferred from to Gaby Griffiths. Coding Level of Care Code ED Transcribing Machine Operator for Tanner Fwd Exam Comprehensive
[2020-06-18 16:56] LABS: Glucose Point of Care 381 mg/dL (70-110)
[2020-06-18 17:00] LABS: Basophils # 0.1 10^3/uL (0.0-0.1); Basophils % 0.4 %; Eosinophils # 0.3 10^3/uL (0.0-0.8); Eosinophils % 1.7 %; Hematocrit 40.9 % (37.0-47.0); Hemoglobin 12.2 g/dL (11.5-15.3); Lymphocytes # 1.1 10^3/uL (0.8-4.8); Lymphocytes % 7.5 %; Mean Corpuscular HGB Conc 29.8 g/dL (30.0-36.0); Mean Corpuscular Hemoglobin 24.1 pg (28.0-34.0); Mean Corpuscular Volume 80.8 fL (81-99); Mean Platelet Volume 11.4 fL (7.4-10.4); Monocytes # 0.5 10^3/uL (0.2-0.9); Monocytes % 3.6 %; Neutrophils # 12.28 10^3/uL (1.8-7.7); Nucleated Red Blood Cells % 0 %; Platelet Count 348 10^3/cmm (130-400); Red Blood Count 5.06 10^6/uL (4.1-5.3); Red Cell Distribution Width 17.9 % (12.1-15.1); White Blood Count 14.3 10^3/uL (4.0-10.0)
[2020-06-18 17:04] LABS: D Dimer 0.37 ug/mIFEU (0-0.59)
[2020-06-18 17:20] LABS: Alanine Aminotransferase 11 U/L (0-33); Albumin Level 4.1 g/dL (3.5-5.2); Alkaline Phosphatase 120 IU/L (35-105); Anion Gap 18.3 (5-19); Aspartate Amino Transferase 11 U/L (0-32); Blood Urea Nitrogen 18 mg/dL (6-20); Calcium 9.5 mg/dL (8.5-10.5); Carbon Dioxide 26 mmol/L (22-29); Chloride 92 mmol/L (98-107); Globulin 3.2 g/dL (1.3-4.6); Glomerular Filtration Rate 31.2 mL/min (90-130); Glucose 450 mg/dL (65-115); Osmolality Calculated 295 mOsm/kg (285-295); Potassium 4.3 mmol/L (3.5-5.1); Sodium 132 mmol/L (136-145); Total Protein 7.3 g/dL (6.6-8.7)
[2020-06-18 17:25] LABS: Troponin(5th) Baseline 41 ng/L (0-10)
--- NOTE | 2020-06-18 17:48 | ECG_ITS ---
[facility] Test Date: 2020-06-18 Pat Name: Ana Lilia Miller Department: Room: Gender: Female Diabetes Nurse: : 1965 Requested By: Edy Prather Order Number: [id number] [place] MD: Renee Gutierrez M.D. Measurements Intervals [place] Rate: 116 P: [place]: QRS: 109 QRSD: 82 T: 55 QT: 343 QTc: 477 Interpretive Statements ATRIAL FIBRILLATION WITH RAPID VENTRICULAR RESPONSE RIGHT AXIS DEVIATION [QRS AXIS > 100] Compared to ECG 03/03/2020 11:54:41 No significant changes Electronically Signed On 06-18-2020 21:17:59 FLIGHT OPERATION COORDINATOR by Renee Gutierrez M.D. [id number] f
[2020-06-18 19:18] LABS: NT Pro B Type Natriuretic Pept 1153 pg/mL (0-125)
[2020-06-18 19:40] LABS: Troponin 5 2HR 34.17 ng/L (0-10)
[2020-06-18 19:42] LABS: Troponin 5 2HR Delta -6.83 ABS# (0-10)
--- NOTE | 2020-06-18 19:56 | P.HP_ITS ---
Providers/Chief Complaint Primary Care Provider: Mervat Nguyen Chief Complaint: CHEST PAIN, DIZZY History of Present Illness Ana Lilia Miller is a 55 year old female who carries multiple comorbid condition presented today to the hospital after experiencing dizziness and chest discomfort. [facility] was [facility] today when she experienced dizzy spell with chest discomfort. He was sitting in her wheelchair when nurse was a sking about her medications she started he started experiencing blurry vision, substernal chest discomfort which he is describing as someone sitting on her chest which lasted for about 10 to 30 minutes associated with nausea and radiation of pain towards left arm along tingling. For these concerns she was sent to the ER for further evaluation. By the time she was evaluated her symptoms resolved. She was found to have atrial fibrillation with RVR high BNP, chronic kidney disease with baseline creatinine. By the time I saw patient she was symptom-free Cardizem drip was running at 5 mg/h, heart rate was fluctuating between 1 10-1 16 highest 140/min Of note, patient is stating that she does not have any CPAP or BiPAP apparatus at home anymore because she was not using it and it was taken away by insurance company. She is wheelchair-bound, not very active at baseline, she is on Eliquis and is compliant with her medications. She gets a lot of opioids and antidepressants for her multiple comorbid conditions. Review of Systems Const: Reports: chills, body aches and fatigue; Denies: fever(s) Eyes: Reports: change in vision and blurry vision ENMT: Denies: throat pain Card: Reports: chest pain, palpitations, pre-syncope and orthopnea Resp: Reports: dyspnea and non-productive cough GI: Denies: abdominal pain : Denies: flank pain Musc: Reports: limited range of motion; Denies: extremity swelling Skin/Breast: Reports: lesions Neuro: Reports: difficulty walking Psych: Reports: anxiety and depression Endo: Denies: polyuria Leonid/Lymph: Denies: easy bruising All/Imm: Denies: urticaria Medications/Allergies Home Medications Medication Instructions Recorded Confirmed Last Taken Type diclofenac sodium 4 g TOPICAL QID PRN 08/07/19 06/18/20 11/08/19 History gabapentin 300 mg capsule 300 mg PO TID 10/05/19 06/18/20 02/05/20 History hydrocodone-acetaminophen 1 - 2 tab PO Q4H PRN MDD 6 tabs 02/06/20 06/18/20 06/17/20 History furosemide 40 mg PO QAM 03/03/20 06/18/20 06/18/20 09:00 History hydroxyzine pamoate 25 mg PO TID PRN 03/03/20 06/18/20 Unknown History insulin glargine [Basaglar KwikPen See Rx Instructions .ROUTE .[facility] 03/03/20 06/18/20 06/18/20 13:00 History U-100 Insulin] 7 UNITS levothyroxine 25 mcg PO QAM 03/03/20 06/18/20 06/18/20 History nystatin See Rx Instructions .ROUTE .COMPLEX 03/03/20 06/18/20 Unknown History ondansetron HCl 4 mg PO Q6H PRN 03/03/20 06/18/20 Unknown History Eliquis 5 mg PO Q12H 06/18/20 06/18/20 06/18/20 09:00 History Imitrex 25 mg PO PRN 06/18/20 06/18/20 Unknown History Zoloft 100 mg PO QAM 06/18/20 06/18/20 Unknown History aripiprazole [Abilify] 5 mg PO QAM 06/18/20 06/18/20 Unknown History bupropion HCl [Wellbutrin SR] 200 mg PO QAM 06/18/20 06/18/20 06/17/20 History cranberry See Rx Instructions .ROUTE .COMPLEX 06/18/20 06/18/20 Unknown History fluticasone furoate-vilanterol 1 inh INHALATION Q24H 06/18/20 06/18/20 Unknown History [Breo Ellipta] insulin aspart U-100 [Novolog See Rx Instructions .ROUTE .COMPLEX 06/18/20 06/18/20 Unknown History U-100 Insulin aspart] insulin glargine [Lantus Solostar 10 unit SUBCUT DAILY 06/18/20 06/18/20 06/18/20 History U-100 Insulin] metoprolol tartrate 25 mg PO Q12H 06/18/20 06/18/20 06/18/20 09:00 History pantoprazole 40 mg tablet,delayed 40 mg PO QAM 06/18/20 06/18/20 06/18/20 History release umeclidinium [Incruse Ellipta] 1 inh INHALATION Q24H 06/18/20 06/18/20 Unknown History Allergies Allergy/AdvReac Type Severity Reaction Status Date / Time Tetracyclines Allergy Severe ALGY-Anaphy Verified 06/18/20 15:27 laxis wool Allergy Intermediate ALGY-Hives Verified 06/18/20 15:27 adhesive AdvReac Unknown Verified 06/18/20 15:27 Artificial Sweetners AdvReac Intermediate ADR-Headach Uncoded 07/20/19 04:24 e PFSH Acute PFSH: Medical History (Updated 06/18/20 @ 20:53 by Joaquín Chang MD) Atrial fibrillation Chronic anticoagulation On hold due to vaginal bleeding Chronic kidney disease, stage III (moderate) Cr has ranged 1.6-2.1 since 11/27 Congestive heart failure COPD (chronic obstructive pulmonary disease) Diabetes mellitus type 2, noninsulin dependent Generalized anxiety disorder Hoarding disorder with excessive acquisition Hypertension Hypothyroidism last TSH in 03/30 was 6.18 Major depressive disorder, recurrent severe without psychotic features Morbid obesity with BMI of 60.0-69.9, adult DELMIS (obstructive sleep apnea) Oxygen dependent Surgical History History of dental surgery Status post biopsy of skin Family History Other Chronic kidney disease (CKD) Diabetes Hypertension Thyroid disease Social History Smoking and tobacco status: former smoker Alcohol intake: never Marital status details: is wheelchair-bound, Current gender identity: Female Vitals/I&O/Wt Last Vital Signs Temp 97.5 F L 06/18/20 15:24 Pulse 113 H 06/18/20 15:24 Resp 22 H 06/18/20 15:24 BP 92/63 06/18/20 15:24 Pulse Ox 100 06/18/20 15:24 Weight last 48 hrs Weight 190.509 kg Physical Exam Narrative: EXAM NARRATIVE: middle-age morbidly obese female laying in left lateral position when I entered the room She was saturating well on nasal cannula supplemental oxygen No active chest pain or active respiratory distress I have seen this patient before at this time she looks euvolemic in my assessment No lower extremity pitting edema noted Bilateral diminished breath sounds without active rhonchi or wheezing S1, S2 variable, I did not appreciate any murmur Abdomen distended, soft, nontender Lower extremity without any gangrene ischemia or ulcer Patient does appear anxious and emotionally labile EOMI, PERRLA Neurologically nonfocal exam NIH 0 I wanted to do Max-Hallpike maneuver but patient refused secondary to her back pain and knee pain. Data : 06/18/20 16:33 06/18/20 16:33 A&P Assessment and plan (1) Atrial fibrillation with RVR: Status: Acute (2) Unstable angina: Status: Acute (3) Pre-syncope: Status: Acute (4) TIA (transient ischemic attack): Status: Acute Additional A&P Information Atrial fibrillation with acute RVR Patient has history of atrial fibrillation currently on metoprolol 25 mg and Eliquis Volume status seems to be euvolemic as compared to previous admissions I would increase her metoprolol to 50 mg twice a day starting tomorrow currently continue Cardizem drip at 5 mg/h and titrate accordingly She is chest pain-free Continue Eliquis Check TSH level Unstable angina She has multiple risk factors for coronary disease Negative delta troponin EKG without ischemic or infarctive changes however she is describing typical chest pain substernal lasting 30 minutes associate with nausea and radiation of pain towards the left arm with numbness and tingling I would request Lexiscan stress test rule out coronary ischemia in the morning, hold beta-whitley until tomorrow morning, n.p.o. after midnight Currently she is chest pain-free Dizziness with blurry vision This most likely is secondary to TIA, will get carotid Doppler and CT head without contrast Continue atorvastatin and antiplatelet therapy(during use of Eliquis I would only use 1 antiplatelet agent), patient refused Wing[place]-Hallpike maneuver he is endorsing vertigo Full code Consistent carb diet, n.p.o. after midnight for stress test Sliding scale to be started tomorrow DVT prophylaxis not needed currently on Eliquis Sleep apnea/COPD: No acute exacerbation she is noncompliant with her BiPAP/CPAP which has been an ongoing issue, patient is stating that she has another sleep study scheduled at [facility] I will hold you of her antipsychotics and antidepressant and continue opioids for her back pain Attestations Medical Necessity Statement*: Anticipating discharge in less than 48 hours currently need Lexiscan stress test in the morning to rule out coronary ischemia for her symptoms Time Spent in Patient Care: (>than 50% of time spent in counselling and/or direct pt care on unit) . 50mins Coding Level of Care Code Acute Wallpaper Remover Steam for Tanner Fwd Diagnoses Atrial fibrillation with RVR I48.91 Unstable angina I20.0 Pre-syncope R55 TIA (transient ischemic attack) G45.9
[2020-06-18] MEDS: FUROsemide 10 mg/mL SDV 4mL 40 MG IVP (20:05)
--- NOTE | 2020-06-18 21:48 | ECG_ITS ---
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 Measurements Intervals [place] Rate: 100 P: [place]: QRS: 143 QRSD: 84 T: 50 QT: 362 QTc: 467 Interpretive Statements ATRIAL FIBRILLATION WITH RAPID VENTRICULAR RESPONSE PATTERN CONSISTENT WITH PULMONARY DISEASE POSSIBLE RIGHT VENTRICULAR HYPERTROPHY [SOME/ALL OF: PROMINENT R IN V1, LATE TRANSITION, RAD, [place], SSS] Compared to ECG 06/18/2020 17:18:07 Right-axis deviation no longer present Electronically Signed On 06-19-2020 19:42:55 INTERNAL SALESPERSON by Stacy Barboza M.D. [id number]
[2020-06-18 22:05] LABS: Glucose Point of Care 333 mg/dL (70-110)
[2020-06-18 22:41] LABS: Troponin 5 6HR 40.52 ng/L (0-10)
[2020-06-18 22:45] LABS: Troponin 5 6HR Delta -0.48 ng/L (0-12)
[2020-06-18] MEDS: apixaban 5 mg Tablet PO (22:51)
[2020-06-18] MEDS: gabapentin 300 mg Capsule PO (22:51)
[2020-06-18] MEDS: HYDROcodone-acetaminophen 10-325 mg Tablet 1 TAB PO (22:51)
[2020-06-19] VITALS (59 sets, daily range): BP systolic 64–153; BP diastolic 45–107; PULSE 82–124; RESP 14–31; TEMP 35.6–36.8; O2SAT 92–100
[2020-06-19 03:49] LABS: Basophils # 0.1 10^3/uL (0.0-0.1); Basophils % 0.5 %; Eosinophils # 0.2 10^3/uL (0.0-0.8); Eosinophils % 1.3 %; Hematocrit 38.3 % (37.0-47.0); Hemoglobin 11.4 g/dL (11.5-15.3); Lymphocytes # 1.4 10^3/uL (0.8-4.8); Lymphocytes % 9.1 %; Mean Corpuscular HGB Conc 29.8 g/dL (30.0-36.0); Mean Corpuscular Hemoglobin 24.4 pg (28.0-34.0); Mean Corpuscular Volume 81.8 fL (81-99); Mean Platelet Volume 10.8 fL (7.4-10.4); Monocytes # 0.5 10^3/uL (0.2-0.9); Monocytes % 3.5 %; Neutrophils # 12.92 10^3/uL (1.8-7.7); Nucleated Red Blood Cells % 0 %; Platelet Count 333 10^3/cmm (130-400); Red Blood Count 4.68 10^6/uL (4.1-5.3); Red Cell Distribution Width 18.3 % (12.1-15.1); White Blood Count 15.2 10^3/uL (4.0-10.0)
--- NOTE | 2020-06-19 04:09 | PC.NURSE ---
NURSING NOTE: SHIFT SUMMARY: PT ARRIVED TO FLOOR PER W/C @ 2145 PM THIS SHIFT. UP WITH MAX ASSIST OF 2. USES ELECTRIC W/C FOR MOBILIZATION. W/C PARKED IN BACK OF NURSING UNIT. PT C/O PAIN = 12/19. PT STATED PAIN IS IN HER NECK, BACK, KNEES. CARDIZEM GTT INFUSING AND TITRATED PER PROTOCOL. CURRENTLY RUNNING AT 10MG/HR. CURRENT BP 95/73 WITH MAP OF 80, DENIES CP, NAUSEA, VOMITING OR DIZZINESS AT PRESENT. CURRENTLY RESTING IN BED/WATCHING TV. ALL VS AND ASSESSMENTS CHARTED. NOT DISTRESS NOTED AT THIS TIME.
[2020-06-19 04:12] LABS: Anion Gap 15.2 (5-19); Blood Urea Nitrogen 20 mg/dL (6-20); Calcium 9.4 mg/dL (8.5-10.5); Carbon Dioxide 25 mmol/L (22-29); Chloride 92 mmol/L (98-107); Glomerular Filtration Rate 27.4 mL/min (90-130); Glucose 410 mg/dL (65-115); Osmolality Calculated 286 mOsm/kg (285-295); Potassium 4.2 mmol/L (3.5-5.1); Sodium 128 mmol/L (136-145)
[2020-06-19] MEDS: pantoprazole DR 40 mg Tablet PO (05:19)
[2020-06-19] MEDS: FUROsemide 40 mg Tablet PO (05:19)
[2020-06-19] MEDS: levothyroxine 25 mcg Tablet PO (05:19)
[2020-06-19] MEDS: buPROPion SR (12 HR) 100 mg Tablet 200 MG PO (05:19)
[2020-06-19] MEDS: sertraline 100 mg Tablet PO (05:19)
[2020-06-19 06:28] LABS: Glucose Point of Care 348 mg/dL (70-110)
--- NOTE | 2020-06-19 07:12 | PC.NURSE ---
NURSING NOTE: PT REFUSED JESSICA SCAN THIS MORNING WHEN LINE O SCRIBE OPERATOR ATTEMPTED TO MEDICATE FOR SCAN. ATTEMPTED TO CALL PHYSICIAN/UNABLE TO CONTACT-REPORTED INFORMATION TO JOVON MONTIEL ON DAYSHIFT.
[2020-06-19] MEDS: gabapentin 300 mg Capsule PO ×4 (09:04→21:05)
[2020-06-19] MEDS: insulin glargine 100 units/1 mL 10 UNIT SUBCUT (09:05)
--- NOTE | 2020-06-19 10:30 | PC.NURSE ---
Patient was up on [facility] when she complained of blurred vision and nausea. Patient became suddenly limp and lethargic. Call for assistance and 4 staff assisted me to get her onto the bed from the [facility]. Dr. Power was on the unit and also responded to the call for help. After returning the patient to bed, she was respondive to her name and c/o of nausea. Patient had a small amount of emesis. Dr. Gallagher was called by telephone to report incident and responded quickly to patient's bedside.
[2020-06-19 10:31] LABS: Glucose Point of Care 352 mg/dL (70-110)
[2020-06-19] MEDS: ondansetron 2 mg/ML SDV 2 mL 4 MG IVP (10:31)
[2020-06-19] MEDS: apixaban 5 mg Tablet PO ×2 (10:45→21:05)
[2020-06-19] MEDS: famotidine 20 mg/2 mL INJ IVP (10:45)
--- NOTE | 2020-06-19 13:07 | PM.PN ---
Subjective Subjective: Interval history: 55-year-old morbidly obese female with a past medical history significant for chronic stage 3 kidney disease with creatinine ranging from 1.6 to 2.1,, insulin-dependent diabetes mellitus, generalized anxiety disorder, hypertension, hypothyroidism, obstructive sleep apnea, chronic atrial fibrillation on anticoagulation, COPD and chronic hypoxemic respiratory failure on 3L of o2 via NC who presented to the ER with recurrent episodes of dizziness, pre-syncope and chest pain. 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 Apparently this was radiating towards left upper extremity. She was directed to the emergency room. Laboratory workup on arrival showed a WBC of 14.3, hemoglobin of 12.2, hematocrit of 40.9 and a platelet count of 348. sodium 132, potassium 4.3, chloride 92, bicarb 26, BUN 18 and creatinine of 1.7. Most recent creatinine in February was 2.1. Troponin T baseline was 41 with repeat in 120 minutes of 34.17. Delta troponin T was -6.83. 6 hour troponin T was 40.5. ProBNP was elevated of 1153. Prior BNP in february of 6372. chest x-ray did not show any evidence of acute cardiopulmonary abnormality. Of note in review of records prior echocardiogram was attempted however due body habitus visualization was technically difficult on 07/2019. While in ER patient was found to be in atrial fibrillation with rapid ventricular response. She was started on IV Cardizem gtt which was weaned off shortly after as rate had improved. Upon admission a nuclear stress test was ordered however patient was not able to perform due to inability to lay flat and raise her hands for prolonged period. She was also noted to another episode of sudden onset of dizziness followed by syncopal event which was brief while on the toilet. She was suspected to have a vaso-vagel event. On my eval she was alert awake and back to baseline. She did feel nauseous and had a small bright red blood tinged emesis. This improved with IV zofran. Vitals/I&O/Wt Last Vital Signs Temp 97.9 F 06/19/20 11:25 Pulse 93 06/19/20 11:25 Resp 20 H 06/19/20 11:25 BP 102/81 06/19/20 11:25 Pulse Ox 98 06/19/20 11:25 06/18/20 06/19/20 06/19/20 22:59 06:59 14:59 Intake Total 379.333 / 379.333 120 / 499.333 Output Total 900 / 900 Balance 379.333 / 379.333 120 / 499.333 -900 / -900 Weight last 48 hrs Weight 190.509 kg Physical Exam Narrative: EXAM NARRATIVE: General : Alert awake feeling nauseous HEENT : Grossly unremarkable CVS : Atrial fibrillation, irregularly irregular CHEST : Non-labored respiration ABD : Soft, Non-tender EXT : 1-2+ bilateral edema Data : 06/19/20 03:10 06/19/20 03:10 A&P Assessment and plan (1) Atrial fibrillation with RVR: Status: Acute (2) Chest pain: Status: Acute (3) Syncopal episodes: Status: Acute (4) Leukocytosis: Status: Acute (5) Chronic kidney disease, stage 3: Status: Acute (6) DELMIS (obstructive sleep apnea): Status: Acute (7) Diabetes mellitus type 2, noninsulin dependent: Status: Acute (8) Hypertension: Status: Acute Qualifiers: Hypertension type: renovascular hypertension Qualified Code(s): I15.0 - Renovascular hypertension (9) Morbid obesity with BMI of 60.0-69.9, adult: Status: Acute (10) History of noncompliance with medical treatment: Status: Acute Syncopal Episode - Presented to dizziness/presyncope - Suspected vasovagal - Will check orthostatic vital - Will review anti-hypertensive - Obtain ECHO if possible - Will obtain Head CT w/o contrast - Carotid US ( less likely ) assess posterior circulation if possible. - Fall precautions - PT consult Chest pain - Troponin trend not consistent with acute ischemia - Delta Troponin T - negative 6.83 - Unable to tolerate nuclear stress test - Consider Dobutamine stress however given atrial fib currently will hold off - Will Obtain ECHO - If recurrence if chest pain may have to consider cardiac catheterization Atrial fibrillation with RVR - Now off cardizem gtt - Continue metoprolol 50 mg PO Q12 ( hold if SBP< 90 or HR < 55) - Continue anticoagulation - Monitor on telemetry Hypervolemic Hyponatremia - Etiology multifactorial - Na - > 128 - Check Urine NA, Creatinine - Uric acid - R/O SIADH On SSNRIs - Repeat BMP in AM Leukocytosis - No clear evidence of infection - Check UA with reflex culture - Check Pro-calcitonin - Repeat in AM - Monitor off abx Congestive heart failure - Unspecified type ( Pro-BNP -1153) - On Lasix 40 mg PO daily - Monitor lytes and replace - ECHO with contrast ordered - Daily weight - Strict input and output Chronic stage 3 kidney disease - Baseline Cr around 2.0 - Currently 1.9 - Renally dose medication - Monitor urine output Chronic hypoxemic respiratory failure - On 3L at baseline - Chest -xray - No acute findings - Titrate o2 as needed Diabetes Mellitus - Continue diabetic diet - Sliding scale insulin - Lantus 10 units QHS - Continue to titrate Goal BS < 180 Obesity hypoventilation syndrome / DELMIS - Not on CPAP at home - May require sleep study outpatient Hypothyroidism - Check TSH in AM - Continue replacement DVT ppx - On eliquis Attestations Medical Necessity Statement*: Will require additional day in hospital for evaluation of syncope, atrial fibrillation and chest pain. 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
--- NOTE | 2020-06-19 13:25 | CT_ITS ---
WS: [id number] CT HEAD NONCONTRAST HISTORY: Syncopal events on OAC TECHNIQUE: Contiguous axial imaging performed through the brain in 2.5 mm imaging. Bone and soft tiss ue windows. Sagittal and coronal reformats reviewed. All CT scans at [facility] use at le ast one of these dose optimization techniques: automated exposure control; mA and/or kV adjustment pe r patient size (includes targeted exams where dose is matched to clinical indication); or iterative r econstruction. DLP: 920.5 mGy.cm COMPARISON: 06/13/2019 No acute intracranial hemorrhage, midline shift or mass effect. Mild atrophy and chronic ischemic disease. No progression since the prior study. Ventricles: Normal size with no hydrocephalus. Paranasal sinuses: As visualized are clear. Mastoid air cells: Well pneumatized. Calvarium and scalp: Skull is intact with no soft tissue edema or swelling. CT/CT head wo con* [id number] IMPRESSION: 1. No acute intracranial hemorrhage or edema. 2. Mild atrophy and chronic ischemic disease. Similar to the prior study of .
[2020-06-19 14:12] LABS: Procalcitonin 0.36 ng/mL (0-0.5)
[2020-06-19] MEDS: metoprolol tartrate 25 mg Tablet 50 MG PO (14:13)
[2020-06-19 14:23] LABS: Uric Acid 6.8 mg/dL (2.4-5.7)
[2020-06-19 16:04] LABS: Glucose Point of Care 370 mg/dL (70-110)
[2020-06-19] MEDS: SUMAtriptan 25 mg Tablet PO (19:36)
[2020-06-19 20:44] LABS: Glucose Point of Care 280 mg/dL (70-110)
[2020-06-19] MEDS: HYDROcodone-acetaminophen 10-325 mg Tablet 1 TAB PO (21:05)
--- NOTE | 2020-06-19 22:02 | PC.NURSE ---
Unable to get clean catch UA due to patient using the bedpan.
[2020-06-20] VITALS (10 sets, daily range): BP systolic 91–118; BP diastolic 65–82; PULSE 79–108; RESP 10–20; TEMP 36.6–37.1; O2SAT 96–100
[2020-06-20] MEDS: metoprolol tartrate 25 mg Tablet 50 MG PO (01:09)
[2020-06-20] MEDS: HYDROcodone-acetaminophen 10-325 mg Tablet 1 TAB PO ×3 (01:12→19:05)
[2020-06-20 03:58] LABS: Basophils # 0.1 10^3/uL (0.0-0.1); Basophils % 0.5 %; Eosinophils # 0.4 10^3/uL (0.0-0.8); Eosinophils % 2.7 %; Hematocrit 39.4 % (37.0-47.0); Hemoglobin 11.5 g/dL (11.5-15.3); Lymphocytes # 1.8 10^3/uL (0.8-4.8); Lymphocytes % 13.5 %; Mean Corpuscular HGB Conc 29.2 g/dL (30.0-36.0); Mean Corpuscular Hemoglobin 24.6 pg (28.0-34.0); Mean Corpuscular Volume 84.2 fL (81-99); Mean Platelet Volume 11.3 fL (7.4-10.4); Monocytes # 0.6 10^3/uL (0.2-0.9); Monocytes % 4.7 %; Neutrophils # 10.21 10^3/uL (1.8-7.7); Neutrophils % 77.8 %; Nucleated Red Blood Cells % 0 %; Platelet Count 368 10^3/cmm (130-400); Red Blood Count 4.68 10^6/uL (4.1-5.3); White Blood Count 13.1 10^3/uL (4.0-10.0)
[2020-06-20 04:26] LABS: Alanine Aminotransferase 9 U/L (0-33); Albumin Level 3.6 g/dL (3.5-5.2); Alkaline Phosphatase 101 IU/L (35-105); Anion Gap 16.2 (5-19); Aspartate Amino Transferase 9 U/L (0-32); Blood Urea Nitrogen 30 mg/dL (6-20); Calcium 9.2 mg/dL (8.5-10.5); Carbon Dioxide 27 mmol/L (22-29); Chloride 97 mmol/L (98-107); Globulin 3.5 g/dL (1.3-4.6); Glucose 318 mg/dL (65-115); Osmolality Calculated 300 mOsm/kg (285-295); Potassium 4.2 mmol/L (3.5-5.1); Sodium 136 mmol/L (136-145); Total Bilirubin 0.8 mg/dL (0.15-1.2); Total Protein 7.1 g/dL (6.6-8.7)
[2020-06-20 04:27] LABS: Thyroid Stimulating Hormone 3.22 uIU/mL (0.27-4.20)
[2020-06-20 04:37] LABS: Vitamin B12 440 pg/mL (232-1245)
[2020-06-20] MEDS: FUROsemide 40 mg Tablet PO (05:02)
[2020-06-20] MEDS: pantoprazole DR 40 mg Tablet PO (05:02)
[2020-06-20] MEDS: levothyroxine 25 mcg Tablet PO (05:02)
[2020-06-20] MEDS: buPROPion SR (12 HR) 100 mg Tablet 200 MG PO (05:02)
[2020-06-20] MEDS: sertraline 100 mg Tablet PO (05:02)
--- NOTE | 2020-06-20 05:20 | PC.NURSE ---
Patient has no complaints at this time. Will monitor.
[2020-06-20 06:56] LABS: Glucose Point of Care 411 mg/dL (70-110)
--- NOTE | 2020-06-20 07:00 | USCV_ITS ---
Ana Lilia Miller Age: 55 Gender: F : 1965 Exam Date: 06/20/2020 06:19 Ordering Phys: Joe Gallagher MD Technologist: Licha Harrell Exam Location: [facility] [place] Indication: SYNCOPAL EVENTS BP: 117 / 79 HR: 91 Rhythm: Sinus Technical Quality: Technically difficult study MEASUREMENTS (Male / Female) Normal Values 2D ECHO LV Diastolic Diameter PLAX 3.1 cm 4.2 - 5.9 / 3.9 - 5.3 cm IVS Diastolic Thickness 1.5 cm 0.6 - 1.0 / 0.6 - 0.9 cm LVPW Diastolic Thickness 1.9 cm 0.6 - 1.0 / 0.6 - 0.9 cm LVOT Diameter 2.1 cm LV Ejection Fraction MOD 2C 58.6 % LV Ejection Fraction 2C AL 58.4 % LA Diameter 3.1 cm LA Width 3.0 cm LA Height 5.1 cm RA Width 3.5 cm RA Height 4.2 cm Aorta at Sinotubular Diameter 2.0 cm DOPPLER AV Peak Velocity 152.0 cm/s LVOT Peak Velocity 90.0 cm/s AV Area Cont Eq vti 1.7 cm squared AV Area Cont Eq pk 2.0 cm squared MV Area PHT 3.0 cm squared Mitral E to A Ratio 3.7 MV E' Velocity 62.5 cm/s Mitral E to MV E' Ratio 9.7 Mitral E to LV E' Lateral Ratio 7.7 Mitral E to LV E' Septal Ratio 13.1 TR Peak Velocity 137.8 cm/s TR Peak Gradient 7.6 mmHg TV Peak E Velocity 68.0 cm/s Right Atrial Pressure 3.0 mmHg Pulmonary Artery Systolic Pressu 10.6 mmHg PV Peak Velocity 91.0 cm/s RV Acceleration Time 0.1 s RV Ejection Time 0.3 s RV AcT/ET 0.3 FINDINGS Left Ventricle Normal left ventricular cavity size. Normal left ventricular systolic function. Left ventricular ejection fraction is estimated at 60%. No diagnsotic regional wall motion abnormalities. Rhythm precludes evaluation of diastolic function. Right Ventricle Normal right ventrciular size and systolic function. Right Atrium Right atrium not well visualized. Left Atrium Left atrium not well visualized. Mitral Valve Mitral valve not well visualized. No mitral valve stenosis. No significant mitral valve regurgitation. Aortic Valve Aortic valve not well visualized. No aortic valve stenosis. No aortic valve regurgitation. Tricuspid Valve Tricuspid valve not well visualized. Pulmonic Valve Pulmonic valve not well visualized. Pericardium No pericardial effusion. Echo free space anterior to the right ventricle likely represents a fat pad. Aorta Normal size aortic root and proximal ascending aorta. CONCLUSIONS 1. This is a technically very difficult study. Ultrasound enhancing agent (Optison) was used 2. Normal left ventricular cavity size. Normal left ventricular systolic function. Left ventricular ejection fraction is estimated at 60%. No diagnsotic regional wall motion abnormalities. 3. Normal right ventrciular size and systolic function. 4. No significant valvular abnormality based on this study. 5. Direct comparison to previous study is not possible given technical differences in the studies. Renee Gutierrez MD (Electronically Signed) Final Date: 20 June 2020 12:45 S
--- NOTE | 2020-06-20 07:00 | USCV_ITS ---
Ana Lilia Miller Age: 55 Gender: F : 1965 Exam Date: 06/20/2020 06:36 Ordering Phys: Joe Gallagher MD Technologist: Licha Harrell Exam Location: [facility] [place] Indication: SYNCOPAL EPISODES Risk Factors: Previous Vascular Surgery: Right Brachial BP: / Left Brachial BP: / Right Left Velocity (cm/s) Spectral Plaque Velocity (cm/s) Spectral Plaque Syst/Diast Broadening Syst/Diast Broadening 125.70/28.70 Prox CCA 135.40/ 30.20 145.90/42.10 Mid CCA 119.60/ 36.80 107.80/22.30 Distal CCA 99.90 / 34.20 74.90/ 27.60 Prox ICA 67.00 / 23.70 73.60/ 30.20 Mid ICA 105.20/ 39.40 52.60/ 32.90 Distal ICA 109.10/ 50.00 127.50 ECA 117.00 0.51 ICA/CCA 0.91 Antegrade Vertebral Antegrade 57.20/ 26.30 cm/s 60.50/ 30.20 cm/s Tri Subclavian Tri 94.80 101.2 0 FINDINGS Numerous thickening in the common carotid and internal carotid arteries bilaterally. Antegrade flow in the vertebral arteries bilaterally. Normal /near normal Doppler flow velocities. CONCLUSIONS No significant stenosis, based on the above findings. No unstable plaques or lesions were noted Dr Stacy Barboza MD [facility] (Electronically Signed) Final Date: 21 June 2020 19:13 S
--- NOTE | 2020-06-20 07:15 | PC.NURSE ---
Dr. Gallagher updated on patient condition. Patient reports dizziness, nausea, and spotty vision. VSS WNL, pupils PERRLA, neuro check WNL. Physician to come to bedside and evaluate patient. No new orders at this time.
[2020-06-20] MEDS: perflutren protein-a microsphr 0.22 mg/mL SDV 3 mL IV (08:44)
[2020-06-20] MEDS: gabapentin 300 mg Capsule PO ×3 (09:11→20:36)
[2020-06-20] MEDS: insulin glargine 100 units/1 mL 10 UNIT SUBCUT ×2 (09:11→17:59)
[2020-06-20] MEDS: apixaban 5 mg Tablet PO ×2 (09:11→20:36)
--- NOTE | 2020-06-20 09:50 | PC.CHAP ---
Pastoral Care Encounter/Spiritual Assessment Type of Contact [] Declined graphic engineer visit [] Patient/Family/Request visit [] Outpatient visit [] Follow-up visit [] Physician referral [] Code/Alert [x] Routine visit [] Staff referral [] Actively dying [] Patient sleeping [] Family support [] [] Out of room [] Palliative care [] [x] Receiving care in room [] Pre-surgical visit [] Trauma [] Long length of stay [] ICU visit [] Other: Relational/Emotional Strength [] Patient feels connected with others/family/visitors/staff [x] Distress [] Loneliness/isolation [] Abandonment Spirituality of Patient [x] Person of [place] [] Attends Alevism of their [place] [x] Believes in Prayer [] Reads Bible or Anabaptism materials [] There are Spiritual issues to be addressed [place] Interventions [x] Prayer [x] Active listening [x] Non-anxious presence [x] Spiritual/emotional support [] Crisis/trauma care [x] Spiritual counseling [] Bereavement support [] Provided bereavement packet [] Provided Bible/devotional materials [] Provided toy/stuffed animal, coloring book to patient or family member [] Provided Communion [] Anointing/[place] [] Salvation [x] Completed spiritual assessment [] Other: Impact on Illness or Injury [] Angry [] Fearful [x] Anxious [] Often cries [] Exhaustion [] Unable to work [] Unable to attend islam [] Unable to walk/stand [] Unable to read [] Unable to drive [] Unable to eat/drink [] Unable to sleep [] Unable to be with family [] Patient intubated [] Other: Summary Chest Pain not feeling well, doesn't know about treatment or what needs to be done negative attitude or when she can go home Time spent with patient 10 mins
[2020-06-20 10:20] LABS: Bilirubin Urine Neg (Negative); Blood Urine Neg (Negative); Glucose Urine UA Trace (Normal); Ketones Urine Negative (Negative); Leukocyte Esterase Urine 2+ (Negative); Nitrate Urine Negative (Negative); Protein Urine Neg (Negative); Urine Appearance Hazy (CLEAR); Urine Color Yellow (Yellow); Urobilinogen Urine Norm (Negative); pH Urine 5 (5-7)
[2020-06-20 10:23] LABS: RBC Urine 0-4 /hpf (0-2)
[2020-06-20 10:24] LABS: Add Urine Culture? No; Bacteria Urine 1+ /hpf; Fine Granular Casts Urine 0-4 /lpf; Squamous Epithelial Cell Urine 15-25 /hpf (0-5)
[2020-06-20 10:31] LABS: Urine Creatinine 108 mg/dL (28-217); Urine Random Sodium 46 mmol/L
[2020-06-20 11:22] LABS: Glucose Point of Care 350 mg/dL (70-110)
--- NOTE | 2020-06-20 15:26 | P.PN_ITS ---
Subjective Subjective: Interval history: 55-year-old morbidly obese female with a past medical history significant for chronic stage 3 kidney disease with creatinine ranging from 1.6 to 2.1,, insulin-dependent diabetes mellitus, generalized anxiety disorder, hypertension, hypothyroidism, obstructive sleep apnea, chronic atrial fibrillation on anticoagulation, COPD and chronic hypoxemic respiratory failure on 3L of o2 via NC who presented to the ER with recurrent episodes of dizziness, pre-syncope and chest pain. 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 Apparently this was radiating towards left upper extremity. She was directed to the emergency room. Laboratory workup on arrival showed a WBC of 14.3, hemoglobin of 12.2, hematocrit of 40.9 and a platelet count of 348. sodium 132, potassium 4.3, chloride 92, bicarb 26, BUN 18 and creatinine of 1.7. Most recent creatinine in February was 2.1. Troponin T baseline was 41 with repeat in 120 minutes of 34.17. Delta troponin T was - 6.83. 6 hour troponin T was 40.5. ProBNP was elevated of 1153. Prior BNP in february of 6372. chest x-ray did not show any evidence of acute cardiopulmonary abnormality. Of note in review of records prior echocardiogram was attempted however due body habitus visualization was technically difficult on 07/2019. While in ER patient was found to be in atrial fibrillation with rapid ventricular response. She was started on IV Cardizem gtt which was weaned off shortly after as rate had improved. Upon admission a nuclear stress test was ordered however patient was not able to perform due to inability to lay flat and raise her hands for prolonged period. She was also noted to another episode of sudden onset of dizziness followed by syncopal event which was brief while on the toilet. She was suspected to have a vaso-vagel event. On my eval she was alert awake and back to baseline. She did feel nauseous and had a small bright red blood tinged emesis. This improved with IV zofran. Subjective: 06/20 Noted dizzy spell again this am while attempt to get up to use restroom which resolved spontaneously. No fever, chills nausea or vomiting. Denied chest pain. Vitals/I&O/Wt Last Vital Signs Temp 98.0 F 06/20/20 11:10 Pulse 92 06/20/20 11:10 Resp 17 06/20/20 11:10 BP 110/78 06/20/20 11:10 Pulse Ox 98 06/20/20 11:10 06/20/20 06/20/20 06/20/20 06:59 14:59 22:59 Intake Total 200 / 645.667 480 / 480 Output Total 800 / 800 Balance 200 / -1254.333 -320 / -320 Physical Exam Narrative: EXAM NARRATIVE: General : Alert awake, oriented x 3 NAD HEENT : Grossly unremarkable CVS : Atrial fibrillation, irregularly irregular CHEST : Non-labored respiration ABD : Soft, Non-tender EXT : 1-2+ bilateral edema Data : 06/20/20 03:15 06/20/20 03:15 A&P Assessment and plan (1) Atrial fibrillation with RVR: Status: Acute (2) Chest pain: Status: Acute (3) Syncopal episodes: Status: Acute (4) Leukocytosis: Status: Acute (5) Chronic kidney disease, stage 3: Status: Acute (6) DELMIS (obstructive sleep apnea): Status: Acute (7) Diabetes mellitus type 2, noninsulin dependent: Status: Acute (8) Hypertension: Status: Acute Qualifiers: Hypertension type: renovascular hypertension Qualified Code(s): I15.0 - Renovascular hypertension (9) Morbid obesity with BMI of 60.0-69.9, adult: Status: Acute (10) History of noncompliance with medical treatment: Status: Acute Syncopal Episode - Presented with dizziness/presyncope - Suspected vasovagal vs orthostatic - Will check orthostatic vital today - Will adjust antihypertensive - Head CT - negative - ECHO - pEF, no obvious severe valve disease - Carotid US ( less likely ) assess posterior circulation if possible. - pending - Fall precautions - PT consult Acute on Chronic stage 3 kidney disease - Baseline Cr around 2.0 - Currently 1.9 - > 2.4 - Will hold Lasix - Decrease antihypertensive - avoid hypotension - Consider nephrology consult - Renally dose medication - Monitor urine output Chest pain - No recurrence - Troponin trend not consistent with acute ischemia - Delta Troponin-T - negative 6.83 - Unable to tolerate nuclear stress test - Consider Dobutamine stress however given atrial fib currently will hold off - ECHO showed pEF, no regional wall motion abnormality - poor study however - If recurrence if chest pain may have to consider cardiac catheterization Atrial fibrillation with RVR - Now off cardizem gtt - Change to metoprolol 12.5 mg PO Q12 ( hold if SBP< 90 or HR < 55) - Continue anticoagulation - Monitor on telemetry Hyponatremia - Resolved - Etiology multi-factorial - Na - > 128 - 136 - R/O SIADH On SSNRIs - Repeat BMP in AM Leukocytosis - No clear evidence of infection - Check UA with reflex culture - Check Pro-calcitonin in am - Remains afebrile - Improving off abx Chronic HFpEF w/o exacerbation - Unspecified type ( Pro-BNP -1153) - On Lasix 40 mg PO daily - hold - ECHO as noted above. - Daily weight - Strict input and output Chronic hypoxemic respiratory failure - On 3L at baseline - Increased to 6l overnight - Wean o2 as tolerated. - Chest -xray - No acute findings - Titrate o2 as needed Diabetes Mellitus with hyperglycemia - Continue diabetic diet - Sliding scale insulin - Add novolog 5 units TIDAC - Lantus 10 units change to BID - Continue to titrate Goal BS < 180 Obesity hypoventilation syndrome / DELMIS - Not on CPAP at home - May require sleep study outpatient Hypothyroidism - Continue replacement DVT ppx - On eliquis Attestations Medical Necessity Statement*: Will require further hospitalization for recurrent dizziness, hypotension, worsening renal failure Time Spent in Patient Care: Greater than 35 minutes (>than 50% of time spent in counselling and/or direct pt care on unit) . Coding Level of Care Code Acute [employer]uit for [facility] Fwd Diagnoses Atrial fibrillation with RVR I48.91 Chest pain R07.9 Syncopal episodes R55 Leukocytosis D72.829 Chronic kidney disease, stage 3 N18.30 DELMIS (obstructive sleep apnea) G47.33 Diabetes mellitus type 2, noninsulin dependent E11.9 Hypertension I15.0 Hypertension type: renovascular hypertension Morbid obesity with BMI of 60.0-69.9, adult E66.01; Z68.44 History of noncompliance with medical treatment Z91.19
[2020-06-20 16:50] LABS: Glucose Point of Care 307 mg/dL (70-110)
--- NOTE | 2020-06-20 19:05 | PC.NURSE ---
Patient states I'm hurting really bad and I think it's been a long time since I've had a pain pill. PRN pain medication provided.
[2020-06-20 20:25] LABS: Glucose Point of Care 350 mg/dL (70-110)
[2020-06-20] MEDS: metoprolol tartrate 25 mg Tablet 12.5 MG PO (20:36)
[2020-06-21] VITALS (12 sets, daily range): BP systolic 101–124; BP diastolic 47–88; PULSE 88–113; RESP 16–23; TEMP 36.4–36.9; O2SAT 92–100
[2020-06-21] MEDS: sertraline 100 mg Tablet PO (05:13)
[2020-06-21] MEDS: levothyroxine 25 mcg Tablet PO (05:13)
[2020-06-21] MEDS: pantoprazole DR 40 mg Tablet PO (05:13)
[2020-06-21] MEDS: buPROPion SR (12 HR) 100 mg Tablet 200 MG PO (05:13)
[2020-06-21 05:18] LABS: Alanine Aminotransferase 10 U/L (0-33); Albumin Level 3.7 g/dL (3.5-5.2); Alkaline Phosphatase 102 IU/L (35-105); Blood Urea Nitrogen 34 mg/dL (6-20); Calcium 8.9 mg/dL (8.5-10.5); Carbon Dioxide 27 mmol/L (22-29); Chloride 97 mmol/L (98-107); Globulin 3.3 g/dL (1.3-4.6); Glomerular Filtration Rate 19.1 mL/min (90-130); Glucose 280 mg/dL (65-115); Osmolality Calculated 300 mOsm/kg (285-295); Sodium 136 mmol/L (136-145); Total Bilirubin 0.8 mg/dL (0.15-1.2)
[2020-06-21 05:30] LABS: Procalcitonin 0.35 ng/mL (0-0.5)
[2020-06-21 05:36] LABS: Anion Gap 16.6 (5-19); Aspartate Amino Transferase 18 U/L (0-32); Potassium 4.6 mmol/L (3.5-5.1)
[2020-06-21 06:27] LABS: Glucose Point of Care 333 mg/dL (70-110)
[2020-06-21 06:50] LABS: Basophils # 0.1 10^3/uL (0.0-0.1); Basophils % 0.5 %; Eosinophils # 0.3 10^3/uL (0.0-0.8); Eosinophils % 2.9 %; Hemoglobin 11.6 g/dL (11.5-15.3); Lymphocytes # 1.2 10^3/uL (0.8-4.8); Lymphocytes % 11.1 %; Mean Corpuscular Hemoglobin 24.5 pg (28.0-34.0); Mean Corpuscular Volume 84.6 fL (81-99); Mean Platelet Volume 11.9 fL (7.4-10.4); Monocytes # 0.5 10^3/uL (0.2-0.9); Monocytes % 4.7 %; Neutrophils # 8.32 10^3/uL (1.8-7.7); Nucleated Red Blood Cells % 0 %; Platelet Count 219 10^3/cmm (130-400); Red Blood Count 4.73 10^6/uL (4.1-5.3); Red Cell Distribution Width 18.3 % (12.1-15.1); White Blood Count 10.4 10^3/uL (4.0-10.0)
[2020-06-21] MEDS: metoprolol tartrate 25 mg Tablet 12.5 MG PO ×2 (08:48→22:14)
[2020-06-21] MEDS: gabapentin 300 mg Capsule PO ×3 (08:48→22:13)
[2020-06-21] MEDS: insulin glargine 100 units/1 mL 10 UNIT SUBCUT ×2 (08:49→17:01)
[2020-06-21] MEDS: apixaban 5 mg Tablet PO ×2 (10:19→22:13)
[2020-06-21 11:18] LABS: Glucose Point of Care 331 mg/dL (70-110)
--- NOTE | 2020-06-21 13:13 | PC.RESP ---
Pulmonary Rehab information sent to patient.
--- NOTE | 2020-06-21 13:21 | P.PN_ITS ---
Subjective Subjective: Interval history: 55-year-old morbidly obese female with a past medical history significant for chronic stage 3 kidney disease with creatinine ranging from 1.6 to 2.1,, insulin-dependent diabetes mellitus, generalized anxiety disorder, hypertension, hypothyroidism, obstructive sleep apnea, chronic atrial fibrillation on anticoagulation, COPD and chronic hypoxemic respiratory failure on 3L of o2 via NC who presented to the ER with recurrent episodes of dizziness, pre-syncope and chest pain. 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 Apparently this was radiating towards left upper extremity. She was directed to the emergency room. Laboratory workup on arrival showed a WBC of 14.3, hemoglobin of 12.2, hematocrit of 40.9 and a platelet count of 348. sodium 132, potassium 4.3, chloride 92, bicarb 26, BUN 18 and creatinine of 1.7. Most recent creatinine in February was 2.1. Troponin T baseline was 41 with repeat in 120 minutes of 34.17. Delta troponin T was - 6.83. 6 hour troponin T was 40.5. ProBNP was elevated of 1153. Prior BNP in february of 6372. chest x-ray did not show any evidence of acute cardiopulmonary abnormality. Of note in review of records prior echocardiogram was attempted however due body habitus visualization was technically difficult on 07/2019. While in ER patient was found to be in atrial fibrillation with rapid ventricular response. She was started on IV Cardizem gtt which was weaned off shortly after as rate had improved. Upon admission a nuclear stress test was ordered however patient was not able to perform due to inability to lay flat and raise her hands for prolonged period. She was also noted to another episode of sudden onset of dizziness followed by syncopal event which was brief while on the toilet. She was suspected to have a vaso-vagel event. On my eval she was alert awake and back to baseline. She did feel nauseous and had a small bright red blood tinged emesis. This improved with IV zofran. Subjective: 06/20 Noted dizzy spell again this am while attempt to get up to use restroom which resolved spontaneously. No fever, chills nausea or vomiting. Denied chest pain. 06/21 Overnight patient continued to complain of intermittent episodes of dizziness. Did not have any recurrence of her chest pain. Remained in sinus rhythm. No fever, chills, nausea vomiting. Medications: Reviewed: Yes Vitals/I&O/Wt Last Vital Signs Temp 97.6 F 06/21/20 15:26 Pulse 93 06/21/20 16:00 Resp 23 H 06/21/20 15:26 BP 101/47 06/21/20 16:00 Pulse Ox 95 06/21/20 15:26 06/21/20 06/21/20 06/21/20 06:59 14:59 22:59 Intake Total 200 / 1120 720 / 720 720 / 1440 Output Total 800 / 2400 900 / 900 400 / 1300 Balance -600 / -1280 -180 / -180 320 / 140 Physical Exam Narrative: EXAM NARRATIVE: General : Alert awake, oriented x 3 NAD HEENT : Grossly unremarkable CVS : Atrial fibrillation, irregularly irregular CHEST : Non-labored respiration ABD : Soft, Non-tender EXT : 1-2+ bilateral edema Data : 06/21/20 06:24 06/21/20 03:45 A&P Assessment and plan (1) Atrial fibrillation with RVR: Status: Acute (2) Chest pain: Status: Acute (3) Syncopal episodes: Status: Acute (4) Leukocytosis: Status: Acute (5) Chronic kidney disease, stage 3: Status: Acute (6) DELMIS (obstructive sleep apnea): Status: Acute (7) Diabetes mellitus type 2, noninsulin dependent: Status: Acute (8) Hypertension: Status: Acute Qualifiers: Hypertension type: renovascular hypertension Qualified Code(s): I15.0 - Renovascular hypertension (9) Morbid obesity with BMI of 60.0-69.9, adult: Status: Acute (10) History of noncompliance with medical treatment: Status: Acute Syncopal Episode with recurrant dizzy spells - Presented with dizziness/presyncope - Suspected vasovagal vs orthostatic - Orthostatic vitals, layin 101/47 ,sitting 124/88, unable to check standing - Head CT - negative - ECHO - pEF, no obvious severe valve disease - Carotid US ( less likely ) assess posterior circulation if possible. - pending - Fall precautions - PT consult Acute on Chronic stage 3 kidney disease - Baseline Cr around 2.0 - Currently 1.9 - > 2.4 - 2.6 - Lasix on hold - intravascular depletion, - Will check UA sodium/creatinine - Adjust antihypertensive - avoid hypotension - Will consult nephrology in am - Renally dose medication - Monitor urine output Chest pain - Resolved. - Troponin trend not consistent with acute ischemia - Delta Troponin-T - negative 6.83 - Unable to tolerate nuclear stress test - Consider Dobutamine stress however given atrial fib currently will hold off - ECHO showed pEF, no regional wall motion abnormality - poor study however - If recurrence if chest pain may have to consider cardiac catheterization Atrial fibrillation with RVR - Noted to have SVR intermittently - Now off cardizem gtt - Change to metoprolol 12.5 mg PO Q12 ( hold if SBP< 90 or HR < 55) - Continue anticoagulation - Monitor on telemetry - Will likely consult cardiology in am Hyponatremia - Resolved - Etiology multi-factorial - Na - > 128 - 136 - R/O SIADH On SSNRIs - Repeat BMP in AM Leukocytosis - No clear evidence of infection - Pro-calcitonin 0.3 - Remains afebrile - Improving off abx Chronic HFpEF w/o exacerbation - Unspecified type ( Pro-BNP -1153) - Lasix 40 mg PO daily - hold - ECHO as noted above. - Daily weight - Strict input and output Acute on Chronic hypoxemic respiratory failure - On 3L at baseline - Increased to 4l overnight - Wean o2 as tolerated. - Chest -xray - No acute findings - Titrate o2 as needed Diabetes Mellitus with hyperglycemia - Continue diabetic diet - Sliding scale insulin - Add novolog 5 units TIDAC - Lantus 10 units change to BID - Continue to titrate Goal BS < 180 Obesity hypoventilation syndrome / DELMIS - Not on CPAP at home - May require sleep study outpatient - Monitoring nocturnal o2 Hypothyroidism - Continue replacement - TSH WNL Debility - PT/OT consulted - Patient to consider SNF at discharge. DVT ppx - On eliquis Attestations Medical Necessity Statement*: Will requiring further hospitalization due to persistent dizziness, bradycardia and respiratory distress. Time Spent in Patient Care: Greater than 35 minutes (>than 50% of time spent in counselling and/or direct pt care on unit) . Coding Level of Care Code Acute Application Development Team Lead for g Fwd Diagnoses Atrial fibrillation with RVR I48.91 Chest pain R07.9 Syncopal episodes R55 Leukocytosis D72.829 Chronic kidney disease, stage 3 N18.30 DELMIS (obstructive sleep apnea) G47.33 Diabetes mellitus type 2, noninsulin dependent E11.9 Hypertension I15.0 Hypertension type: renovascular hypertension Morbid obesity with BMI of 60.0-69.9, adult E66.01; Z68.44 History of noncompliance with medical treatment Z91.19
[2020-06-21 15:58] LABS: Glucose Point of Care 307 mg/dL (70-110)
--- NOTE | 2020-06-21 18:43 | PC.NURSE ---
Shift Summary Patient had uneventful shift. Patient denies any dizziness while resting but reports dizziness when standing. Patient has been up to bedside commode for voiding, tolerated activity well. No needs identified at this time.
[2020-06-21 20:15] LABS: Glucose Point of Care 258 mg/dL (70-110)
[2020-06-21] MEDS: HYDROcodone-acetaminophen 10-325 mg Tablet 1 TAB PO (22:13)
[2020-06-21] MEDS: meclizine 25 mg tablet PO (22:14)
[2020-06-22] VITALS (66 sets, daily range): BP systolic 100–115; BP diastolic 53–70; PULSE 85–123; RESP 9–27; TEMP 36.1–37.1; O2SAT 95–98
[2020-06-22 05:10] LABS: Basophils # 0.1 10^3/uL (0.0-0.1); Basophils % 0.5 %; Eosinophils # 0.3 10^3/uL (0.0-0.8); Eosinophils % 2.7 %; Hematocrit 37.9 % (37.0-47.0); Hemoglobin 10.6 g/dL (11.5-15.3); Lymphocytes # 1.3 10^3/uL (0.8-4.8); Lymphocytes % 12.7 %; Mean Corpuscular Hemoglobin 24.5 pg (28.0-34.0); Mean Corpuscular Volume 87.5 fL (81-99); Monocytes # 0.5 10^3/uL (0.2-0.9); Monocytes % 4.9 %; Neutrophils # 7.83 10^3/uL (1.8-7.7); Neutrophils % 78.5 %; Nucleated Red Blood Cells % 0 %; Platelet Count 208 10^3/cmm (130-400); Red Blood Count 4.33 10^6/uL (4.1-5.3); Red Cell Distribution Width 17.8 % (12.1-15.1)
[2020-06-22 05:31] LABS: Alanine Aminotransferase 9 U/L (0-33); Albumin Level 3.3 g/dL (3.5-5.2); Alkaline Phosphatase 90 IU/L (35-105); Aspartate Amino Transferase 14 U/L (0-32); Blood Urea Nitrogen 35 mg/dL (6-20); Calcium 8.7 mg/dL (8.5-10.5); Carbon Dioxide 27 mmol/L (22-29); Chloride 99 mmol/L (98-107); Globulin 3.2 g/dL (1.3-4.6); Glomerular Filtration Rate 23.2 mL/min (90-130); Glucose 247 mg/dL (65-115); Osmolality Calculated 298 mOsm/kg (285-295); Sodium 136 mmol/L (136-145); Total Bilirubin 0.7 mg/dL (0.15-1.2); Total Protein 6.5 g/dL (6.6-8.7)
[2020-06-22 05:46] LABS: Anion Gap 14.4 (5-19); Potassium 4.4 mmol/L (3.5-5.1)
[2020-06-22] MEDS: sertraline 100 mg Tablet PO (06:42)
[2020-06-22] MEDS: pantoprazole DR 40 mg Tablet PO (06:42)
[2020-06-22] MEDS: levothyroxine 25 mcg Tablet PO (06:42)
[2020-06-22 06:49] LABS: Glucose Point of Care 247 mg/dL (70-110)
[2020-06-22] MEDS: insulin glargine 100 units/1 mL 10 UNIT SUBCUT ×2 (08:12→18:02)
[2020-06-22] MEDS: metoprolol tartrate 25 mg Tablet 12.5 MG PO ×2 (08:12→21:00)
[2020-06-22] MEDS: apixaban 5 mg Tablet PO ×2 (08:12→21:00)
[2020-06-22] MEDS: gabapentin 300 mg Capsule PO ×3 (08:13→20:59)
[2020-06-22] MEDS: buPROPion SR (12 HR) 100 mg Tablet 200 MG PO (08:13)
[2020-06-22] MEDS: HYDROcodone-acetaminophen 10-325 mg Tablet 1 TAB PO ×3 (08:21→20:59)
--- NOTE | 2020-06-22 09:05 | DCPLANNER ---
Pg 2 of IM updated and reviewed with pt. No questions, copy provided.
[2020-06-22 11:09] LABS: Glucose Point of Care 369 mg/dL (70-110)
--- NOTE | 2020-06-22 12:55 | PM.PN ---
Subjective Subjective: Interval history: 55-year-old morbidly obese female with a past medical history significant for chronic stage 3 kidney disease with creatinine ranging from 1.6 to 2.1,, insulin-dependent diabetes mellitus, generalized anxiety disorder, hypertension, hypothyroidism, obstructive sleep apnea, chronic atrial fibrillation on anticoagulation, COPD and chronic hypoxemic respiratory failure on 3L of o2 via NC who presented to the ER with recurrent episodes of dizziness, pre-syncope and chest pain. 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 Apparently this was radiating towards left upper extremity. She was directed to the emergency room. Laboratory workup on arrival showed a WBC of 14.3, hemoglobin of 12.2, hematocrit of 40.9 and a platelet count of 348. sodium 132, potassium 4.3, chloride 92, bicarb 26, BUN 18 and creatinine of 1.7. Most recent creatinine in February was 2.1. Troponin T baseline was 41 with repeat in 120 minutes of 34.17. Delta troponin T was -6.83. 6 hour troponin T was 40.5. ProBNP was elevated of 1153. Prior BNP in february of 6372. chest x-ray did not show any evidence of acute cardiopulmonary abnormality. Of note in review of records prior echocardiogram was attempted however due body habitus visualization was technically difficult on 07/2019. While in ER patient was found to be in atrial fibrillation with rapid ventricular response. She was started on IV Cardizem gtt which was weaned off shortly after as rate had improved. Upon admission a nuclear stress test was ordered however patient was not able to perform due to inability to lay flat and raise her hands for prolonged period. She was also noted to another episode of sudden onset of dizziness followed by syncopal event which was brief while on the toilet. She was suspected to have a vaso-vagel event. On my eval she was alert awake and back to baseline. She did feel nauseous and had a small bright red blood tinged emesis. This improved with IV zofran. Subjective: 06/20 Noted dizzy spell again this am while attempt to get up to use restroom which resolved spontaneously. No fever, chills nausea or vomiting. Denied chest pain. 06/21 Overnight patient continued to complain of intermittent episodes of dizziness. Did not have any recurrence of her chest pain. Remained in sinus rhythm. No fever, chills, nausea vomiting. 06/22 Patient was diong much better today. States she had more energy. No recurrance of dizzy spells. Denied chest pain. Oxygen was weaned to 4L. NO fever, Chills, nausea or vomiting. Agreeable for placement to [facility]. Medications: Reviewed: Yes Vitals/I&O/Wt Last Vital Signs Temp 97.0 F L 06/22/20 10:58 Pulse 89 06/22/20 10:58 Resp 11 L 06/22/20 10:58 BP 100/70 06/22/20 10:58 Pulse Ox 98 06/22/20 10:58 06/21/20 06/22/20 06/22/20 22:59 06:59 14:59 Intake Total 920 / 1640 600 / 600 Output Total 1000 / 1900 500 / 500 Balance -80 / -260 100 / 100 Physical Exam Narrative: EXAM NARRATIVE: General : Alert awake, oriented x 3 NAD HEENT : Grossly unremarkable CVS : Atrial fibrillation, irregularly irregular CHEST : Non-labored respiration ABD : Soft, Non-tender EXT : 1-2+ bilateral edema Data : 06/22/20 04:56 06/22/20 04:56 A&P Assessment and plan (1) Atrial fibrillation with RVR: Status: Acute (2) Chest pain: Status: Acute (3) Syncopal episodes: Status: Acute (4) Leukocytosis: Status: Acute (5) Chronic kidney disease, stage 3: Status: Acute (6) DELMIS (obstructive sleep apnea): Status: Acute (7) Diabetes mellitus type 2, noninsulin dependent: Status: Acute (8) Hypertension: Status: Acute Qualifiers: Hypertension type: renovascular hypertension Qualified Code(s): I15.0 - Renovascular hypertension (9) Morbid obesity with BMI of 60.0-69.9, adult: Status: Acute (10) History of noncompliance with medical treatment: Status: Acute Syncopal Episode with recurrant dizzy spells - Presented with dizziness/presyncope - Suspected vasovagal vs orthostatic - Orthostatic vitals, layin 101/47 ,sitting 124/88, unable to check standing - Head CT - negative - ECHO - pEF, no obvious severe valve disease - Carotid US ( less likely ) - WNL - Fall precautions - PT consult Acute on Chronic stage 3 kidney disease - Improving - Baseline Cr around 2.0 - Currently 1.9 - > 2.4 - 2.6 - > 2.2 - Lasix on hold - intravascular depletion, - Adjust antihypertensive - avoid hypotension - Will consult nephrology if worsening - Renally dose medication - Monitor urine output Chest pain - Resolved. - Troponin trend not consistent with acute ischemia - Delta Troponin-T - negative 6.83 - Unable to tolerate nuclear stress test - Consider Dobutamine stress however given atrial fib currently will hold off - ECHO showed pEF, no regional wall motion abnormality - poor study however - If recurrence if chest pain may have to consider cardiac catheterization - Has been stable Atrial fibrillation with RVR - Controlled - Noted to have SVR intermittently - Now off cardizem gtt - Change to metoprolol 12.5 mg PO Q12 ( hold if SBP< 90 or HR < 55) - Continue anticoagulation - Monitor on telemetry - Will likely consult cardiology if worsening Hyponatremia - Resolved - Etiology multi-factorial - Na - > 128 - 136 - R/O SIADH On SSNRIs - Repeat BMP in AM Leukocytosis - Resolved - No clear evidence of infection - Pro-calcitonin 0.3 - Remains afebrile - Improving off abx Chronic HFpEF w/o exacerbation - Unspecified type ( Pro-BNP -1153) - Lasix 40 mg PO daily - hold - ECHO as noted above. - Daily weight - Strict input and output Acute on Chronic hypoxemic respiratory failure - On 3L at baseline -currenlty at 3- 4L - Wean o2 as tolerated. - Chest -xray - No acute findings - Titrate o2 as needed Diabetes Mellitus with hyperglycemia - Continue diabetic diet - Sliding scale insulin - Novolog 5 units TIDAC - Lantus 10 units change to BID - Continue to titrate Goal BS < 180 Obesity hypoventilation syndrome / DELMIS - Not on CPAP at home - May require sleep study outpatient - Monitoring nocturnal o2 Hypothyroidism - Continue replacement - TSH WNL Debility - PT/OT consulted - Plan to dischage to [facility] DVT ppx - On eliquis Attestations Medical Necessity Statement*: Will require further hospitalization for dischage planning and placement authorization to [facility] Coding Level of Care Code Acute Agents' Records Clerk for Chg Fwd Diagnoses Atrial fibrillation with RVR I48.91 Chest pain R07.9 Syncopal episodes R55 Leukocytosis D72.829 Chronic kidney disease, stage 3 N18.30 DELMIS (obstructive sleep apnea) G47.33 Diabetes mellitus type 2, noninsulin dependent E11.9 Hypertension I15.0 Hypertension type: renovascular hypertension Morbid obesity with BMI of 60.0-69.9, adult E66.01; Z68.44 History of noncompliance with medical treatment Z91.19
[2020-06-22 16:42] LABS: Glucose Point of Care 272 mg/dL (70-110)
--- NOTE | 2020-06-22 19:30 | PC.NURSE ---
Patient alert and oriented X 4 laying on left side in bed watching tv. Patient asked for personal bag out of closet. Patient sat up on side of bed and Telemetry stickers replaced on chest. No further needs noted at this time. Will continue to monitor and assist as needed following CPOC
[2020-06-22] MEDS: meclizine 25 mg tablet PO (20:59)
[2020-06-22 21:23] LABS: Glucose Point of Care 279 mg/dL (70-110)
[2020-06-23] VITALS (50 sets, daily range): BP systolic 99–117; BP diastolic 56–74; PULSE 43–146; RESP 12–30; TEMP 35.7–37; O2SAT 94–100
[2020-06-23] MEDS: HYDROcodone-acetaminophen 10-325 mg Tablet 1 TAB PO ×3 (00:35→20:29)
--- NOTE | 2020-06-23 02:49 | PC.NURSE ---
Patient awake off and on throughout the night mostly due to outbursts from room mate. Pain medication given at 0030 for shoulder pain and then patient ate sandwich and went to lay down with eyes closed. pain medication effective. Will continue to monitor and assist as needed following CPOC
[2020-06-23 05:46] LABS: Basophils % 0.5 %; Eosinophils # 0.3 10^3/uL (0.0-0.8); Eosinophils % 3.5 %; Hematocrit 35.7 % (37.0-47.0); Hemoglobin 10.2 g/dL (11.5-15.3); Lymphocytes # 1.3 10^3/uL (0.8-4.8); Lymphocytes % 15.1 %; Mean Corpuscular HGB Conc 28.6 g/dL (30.0-36.0); Mean Corpuscular Hemoglobin 24.6 pg (28.0-34.0); Mean Platelet Volume 12.4 fL (7.4-10.4); Monocytes # 0.5 10^3/uL (0.2-0.9); Monocytes % 6.2 %; Neutrophils # 6.39 10^3/uL (1.8-7.7); Neutrophils % 73.8 %; Nucleated Red Blood Cells % 0 %; Platelet Count 215 10^3/cmm (130-400); Red Blood Count 4.15 10^6/uL (4.1-5.3); Red Cell Distribution Width 18.2 % (12.1-15.1); White Blood Count 8.7 10^3/uL (4.0-10.0)
[2020-06-23 06:13] LABS: Alanine Aminotransferase 13 U/L (0-33); Albumin Level 3.7 g/dL (3.5-5.2); Alkaline Phosphatase 94 IU/L (35-105); Blood Urea Nitrogen 31 mg/dL (6-20); Calcium 8.5 mg/dL (8.5-10.5); Carbon Dioxide 27 mmol/L (22-29); Chloride 100 mmol/L (98-107); Globulin 2.6 g/dL (1.3-4.6); Glomerular Filtration Rate 25.9 mL/min (90-130); Glucose 265 mg/dL (65-115); Osmolality Calculated 300 mOsm/kg (285-295); Sodium 137 mmol/L (136-145); Total Bilirubin 0.8 mg/dL (0.15-1.2); Total Protein 6.3 g/dL (6.6-8.7)
[2020-06-23 06:15] LABS: Glucose Point of Care 259 mg/dL (70-110)
[2020-06-23 06:21] LABS: Anion Gap 14.5 (5-19); Aspartate Amino Transferase 24 U/L (0-32); Potassium 4.5 mmol/L (3.5-5.1)
[2020-06-23] MEDS: meclizine 25 mg tablet PO (06:26)
[2020-06-23] MEDS: pantoprazole DR 40 mg Tablet PO (06:26)
[2020-06-23] MEDS: sertraline 100 mg Tablet PO (06:26)
[2020-06-23] MEDS: levothyroxine 25 mcg Tablet PO (06:26)
[2020-06-23] MEDS: buPROPion SR (12 HR) 100 mg Tablet 200 MG PO (06:26)
[2020-06-23] MEDS: gabapentin 300 mg Capsule PO ×3 (09:26→20:29)
[2020-06-23] MEDS: metoprolol tartrate 25 mg Tablet 12.5 MG PO ×2 (09:26→20:29)
[2020-06-23] MEDS: apixaban 5 mg Tablet PO ×2 (09:26→20:29)
[2020-06-23] MEDS: insulin glargine 100 units/1 mL 10 UNIT SUBCUT ×2 (09:27→17:59)
[2020-06-23 12:11] LABS: Glucose Point of Care 326 mg/dL (70-110)
--- NOTE | 2020-06-23 15:22 | P.PN_ITS ---
Subjective Subjective: Interval history: 55-year-old morbidly obese female with a past medical history significant for chronic stage 3 kidney disease with creatinine ranging from 1.6 to 2.1,, insulin-dependent diabetes mellitus, generalized anxiety disorder, hypertension, hypothyroidism, obstructive sleep apnea, chronic atrial fibrillation on anticoagulation, COPD and chronic hypoxemic respiratory failure on 3L of o2 via [place] who presented to the ER with recurrent episodes of dizziness, pre-syncope and chest pain. 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 Apparently this was radiating towards left upper extremity. She was directed to the emergency room. Laboratory workup on arrival showed a WBC of 14.3, hemoglobin of 12.2, hematocrit of 40.9 and a platelet count of 348. sodium 132, potassium 4.3, chloride 92, bicarb 26, BUN 18 and creatinine of 1.7. Most recent creatinine in February was 2.1. Troponin T baseline was 41 with repeat in 120 minutes of 34.17. Delta troponin T was - 6.83. 6 hour troponin T was 40.5. ProBNP was elevated of 1153. Prior BNP in february of 6372. chest x-ray did not show any evidence of acute cardiopulmonary abnormality. Of note in review of records prior echocardiogram was attempted however due body habitus visualization was technically difficult on 07/2019. While in ER patient was found to be in atrial fibrillation with rapid ventricular response. She was started on IV Cardizem gtt which was weaned off shortly after as rate had improved. Upon admission a nuclear stress test was ordered however patient was not able to perform due to inability to lay flat and raise her hands for prolonged period. She was also noted to another episode of sudden onset of dizziness followed by syncopal event which was brief while on the toilet. She was suspected to have a vaso-vagel event. On my eval she was alert awake and back to baseline. She did feel nauseous and had a small bright red blood tinged emesis. This improved with IV zofran. Subjective: 06/20 Noted dizzy spell again this am while attempt to get up to use restroom which resolved spontaneously. No fever, chills nausea or vomiting. Denied chest pain. 06/21 Overnight patient continued to complain of intermittent episodes of dizziness. Did not have any recurrence of her chest pain. Remained in sinus rhythm. No fever, chills, nausea vomiting. 06/22 Patient was diong much better today. States she had more energy. No recurrence of dizzy spells. Denied chest pain. Oxygen was weaned to 4L. NO fever, Chills, nausea or vomiting. Agreeable for placement to [facility]. 06/23 No new clinical events overnight. Patient stated she felt better. no fever, chill, nausea or vomiting. Medications: Reviewed: Yes Vitals/I&O/Wt Last Vital Signs Temp 96.3 F L 06/23/20 14:31 Pulse 97 06/23/20 14:31 Resp 14 06/23/20 14:31 BP 99/62 06/23/20 14:31 Pulse Ox 100 06/23/20 14:31 06/23/20 06/23/20 06/23/20 06:59 14:59 22:59 Intake Total 250 / 1650 840 / 840 600 / 1440 Output Total 600 / 2000 600 / 600 Balance -350 / -350 840 / 840 0 / 840 Physical Exam Narrative: EXAM NARRATIVE: General : Alert awake, oriented x 3 NAD HEENT : Grossly unremarkable CVS : Atrial fibrillation, irregularly irregular CHEST : Non-labored respiration ABD : Soft, Non-tender EXT : 1-2+ bilateral edema Data : 06/23/20 05:22 06/23/20 05:22 A&P Assessment and plan (1) Atrial fibrillation with RVR: Status: Acute (2) Chest pain: Status: Acute (3) Syncopal episodes: Status: Acute (4) Leukocytosis: Status: Acute (5) Chronic kidney disease, stage 3: Status: Acute (6) DELMIS (obstructive sleep apnea): Status: Acute (7) Diabetes mellitus type 2, noninsulin dependent: Status: Acute (8) Hypertension: Status: Acute Qualifiers: Hypertension type: renovascular hypertension Qualified Code(s): I15.0 - Renovascular hypertension (9) Morbid obesity with BMI of 60.0-69.9, adult: Status: Acute (10) History of noncompliance with medical treatment: Status: Acute Syncopal Episode with recurrent dizzy spells - No recurrence - Presented with dizziness/presyncope - Suspected vasovagal vs orthostatic - Orthostatic vitals, layin 101/47 ,sitting 124/88, unable to check standing - Head CT - negative - ECHO - pEF, no obvious severe valve disease - Carotid US ( less likely ) - WNL - Fall precautions - PT consult Acute on Chronic stage 3 kidney disease - Improving - Baseline Cr around 2.0 - Currently 1.9 - > 2.4 - 2.6 - > 2.2 - > 2.0 - Lasix on hold - intravascular depletion - Adjust antihypertensive - avoid hypotension - Will consult nephrology if worsening - Renally dose medication - Monitor urine output Chest pain - Resolved. - Troponin trend not consistent with acute ischemia - Delta Troponin-T - negative 6.83 - Unable to tolerate nuclear stress test - Consider Dobutamine stress however given atrial fib currently will hold off - ECHO showed pEF, no regional wall motion abnormality - poor study however - If recurrence if chest pain may have to consider cardiac catheterization - Has been stable - Will arrange outpatient follow up with cardiology Atrial fibrillation with RVR - Controlled - Noted to have SVR intermittently - Now off cardizem gtt - Change to metoprolol 12.5 mg PO Q12 ( hold if SBP< 90 or HR < 55) - Continue anticoagulation - Monitor on telemetry - Will likely consult cardiology if worsening Hyponatremia - Resolved - Etiology multi-factorial - Will not resume HCTZ - Na - > 128 - 136 - R/O SIADH On SSNRIs - Repeat BMP in AM Leukocytosis - Resolved - No clear evidence of infection - Pro-calcitonin 0.3 - Remains afebrile - Improving off abx Chronic HFpEF w/o exacerbation - Unspecified type ( Pro-BNP -1153) - Lasix 40 mg PO daily - hold - ECHO as noted above. - Daily weight - Strict input and output Acute on Chronic hypoxemic respiratory failure - On 3L at baseline -currently at 4L - Wean o2 as tolerated. - Chest -xray - No acute findings - Titrate o2 as needed Diabetes Mellitus with hyperglycemia - Continue diabetic diet - Sliding scale insulin - Novolog 5 units TIDAC - Lantus 10 units change to BID - Continue to titrate Goal BS < 180 Obesity hypoventilation syndrome / DELMIS - Not on CPAP at home - May require sleep study outpatient - Monitoring nocturnal o2 Hypothyroidism - Continue replacement - TSH WNL Debility - PT/OT consulted - Plan to discharge to [facility] DVT ppx - On eliquis Additional A&P Information Discharge planning. Anticipate d/c in am. Attestations Medical Necessity Statement*: Will require additional night in hospital for discharge placement arrangement. Time Spent in Patient Care: Greater than 35 minutes (>than 50% of time spent in counselling and/or direct pt care on unit) . Coding Level of Care Code Acute House Superintendent for Lilyg Fwd Diagnoses Atrial fibrillation with RVR I48.91 Chest pain R07.9 Syncopal episodes R55 Leukocytosis D72.829 Chronic kidney disease, stage 3 N18.30 DELMIS (obstructive sleep apnea) G47.33 Diabetes mellitus type 2, noninsulin dependent E11.9 Hypertension I15.0 Hypertension type: renovascular hypertension Morbid obesity with BMI of 60.0-69.9, adult E66.01; Z68.44 History of noncompliance with medical treatment Z91.19
[2020-06-23 16:42] LABS: Glucose Point of Care 300 mg/dL (70-110)
--- NOTE | 2020-06-23 20:21 | PC.NURSE ---
Patient has no complaints at this time. Will monitor.
[2020-06-23 20:23] LABS: Glucose Point of Care 322 mg/dL (70-110)
[2020-06-24] VITALS (8 sets, daily range): BP systolic 106–135; BP diastolic 54–82; PULSE 88–108; RESP 12–19; TEMP 35.7–37; O2SAT 99–100
--- NOTE | 2020-06-24 03:40 | PC.NURSE ---
Patient has no complaints at this time. Will monitor.
[2020-06-24 04:12] LABS: Basophils # 0.1 10^3/uL (0.0-0.1); Basophils % 0.5 %; Eosinophils # 0.3 10^3/uL (0.0-0.8); Hematocrit 37.1 % (37.0-47.0); Hemoglobin 10.4 g/dL (11.5-15.3); Lymphocytes # 1.1 10^3/uL (0.8-4.8); Lymphocytes % 11.2 %; Mean Corpuscular Hemoglobin 24.5 pg (28.0-34.0); Mean Corpuscular Volume 87.3 fL (81-99); Mean Platelet Volume 11.4 fL (7.4-10.4); Monocytes # 0.5 10^3/uL (0.2-0.9); Monocytes % 5.3 %; Neutrophils % 79.6 %; Nucleated Red Blood Cells % 0 %; Platelet Count 236 10^3/cmm (130-400); Red Blood Count 4.25 10^6/uL (4.1-5.3); Red Cell Distribution Width 18.2 % (12.1-15.1); White Blood Count 9.8 10^3/uL (4.0-10.0)
[2020-06-24 04:44] LABS: Anion Gap 11.2 (5-19); Blood Urea Nitrogen 30 mg/dL (6-20); Calcium 8.9 mg/dL (8.5-10.5); Carbon Dioxide 30 mmol/L (22-29); Chloride 102 mmol/L (98-107); Glomerular Filtration Rate 27.4 mL/min (90-130); Glucose 273 mg/dL (65-115); Osmolality Calculated 304 mOsm/kg (285-295); Potassium 4.2 mmol/L (3.5-5.1); Sodium 139 mmol/L (136-145)
[2020-06-24] MEDS: buPROPion SR (12 HR) 100 mg Tablet 200 MG PO (04:57)
[2020-06-24] MEDS: sertraline 100 mg Tablet PO (04:57)
[2020-06-24] MEDS: pantoprazole DR 40 mg Tablet PO (04:58)
[2020-06-24] MEDS: levothyroxine 25 mcg Tablet PO (04:58)
[2020-06-24 06:49] LABS: Glucose Point of Care 319 mg/dL (70-110)
[2020-06-24] MEDS: gabapentin 300 mg Capsule PO ×3 (09:46→21:15)
[2020-06-24] MEDS: apixaban 5 mg Tablet PO ×2 (09:46→21:15)
[2020-06-24] MEDS: insulin glargine 100 units/1 mL 10 UNIT SUBCUT ×2 (09:54→17:49)
[2020-06-24] MEDS: metoprolol tartrate 25 mg Tablet 12.5 MG PO ×2 (09:54→21:15)
[2020-06-24 11:00] LABS: Glucose Point of Care 259 mg/dL (70-110)
--- NOTE | 2020-06-24 11:35 | P.PN_ITS ---
Subjective Subjective: Interval history: 55-year-old morbidly obese female with a past medical history significant for chronic stage 3 kidney disease with creatinine ranging from 1.6 to 2.1,, insulin-dependent diabetes mellitus, generalized anxiety disorder, hypertension, hypothyroidism, obstructive sleep apnea, chronic atrial fibrillation on anticoagulation, COPD and chronic hypoxemic respiratory failure on 3L of o2 via NC who presented to the ER with recurrent episodes of dizziness, pre-syncope and chest pain. 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 Apparently this was radiating towards left upper extremity. She was directed to the emergency room. Laboratory workup on arrival showed a WBC of 14.3, hemoglobin of 12.2, hematocrit of 40.9 and a platelet count of 348. sodium 132, potassium 4.3, chloride 92, bicarb 26, BUN 18 and creatinine of 1.7. Most recent creatinine in February was 2.1. Troponin T baseline was 41 with repeat in 120 minutes of 34.17. Delta troponin T was - 6.83. 6 hour troponin T was 40.5. ProBNP was elevated of 1153. Prior BNP in february of 6372. chest x-ray did not show any evidence of acute cardiopulmonary abnormality. Of note in review of records prior echocardiogram was attempted however due body habitus visualization was technically difficult on 07/2019. While in ER patient was found to be in atrial fibrillation with rapid ventricular response. She was started on IV Cardizem gtt which was weaned off shortly after as rate had improved. Upon admission a nuclear stress test was ordered however patient was not able to perform due to inability to lay flat and raise her hands for prolonged period. She was also noted to another episode of sudden onset of dizziness followed by syncopal event which was brief while on the toilet. She was suspected to have a vaso-vagel event. On my eval she was alert awake and back to baseline. She did feel nauseous and had a small bright red blood tinged emesis. This improved with IV zofran. Subjective: 06/20 Noted dizzy spell again this am while attempt to get up to use restroom which resolved spontaneously. No fever, chills nausea or vomiting. Denied chest pain. 06/21 Overnight patient continued to complain of intermittent episodes of dizziness. Did not have any recurrence of her chest pain. Remained in sinus rhythm. No fever, chills, nausea vomiting. 06/22 Patient was diong much better today. States she had more energy. No recurrence of dizzy spells. Denied chest pain. Oxygen was weaned to 4L. NO fever, Chills, nausea or vomiting. Agreeable for placement to [facility]. 06/23 No new clinical events overnight. Patient stated she felt better. no fever, chill, nausea or vomiting. 06/24 Stable overnight, awaiting discharge to facility. no new complaints. Medications: Reviewed: Yes Vitals/I&O/Wt Last Vital Signs Temp 97.3 F L 06/24/20 14:38 Pulse 104 H 06/24/20 14:38 Resp 12 06/24/20 14:38 BP 110/64 06/24/20 14:38 Pulse Ox 100 06/24/20 14:38 06/24/20 06/24/20 06/24/20 06:59 14:59 22:59 Intake Total 250 / 2140 720 / 720 360 / 1080 Output Total 600 / 1200 Balance -350 / 940 720 / 720 360 / 1080 Physical Exam Narrative: EXAM NARRATIVE: General : Alert awake, oriented x 3 NAD HEENT : Grossly unremarkable CVS : Atrial fibrillation, irregularly irregular CHEST : Non-labored respiration ABD : Soft, Non-tender EXT : 1-2+ bilateral edema Data : 06/24/20 03:31 06/24/20 03:31 A&P Assessment and plan (1) Atrial fibrillation with RVR: Status: Acute (2) Chest pain: Status: Acute (3) Syncopal episodes: Status: Acute (4) Leukocytosis: Status: Acute (5) Chronic kidney disease, stage 3: Status: Acute (6) DELMIS (obstructive sleep apnea): Status: Acute (7) Diabetes mellitus type 2, noninsulin dependent: Status: Acute (8) Hypertension: Status: Acute Qualifiers: Hypertension type: renovascular hypertension Qualified Code(s): I15.0 - Renovascular hypertension (9) Morbid obesity with BMI of 60.0-69.9, adult: Status: Acute (10) History of noncompliance with medical treatment: Status: Acute Syncopal Episode with recurrent dizzy spells - No recurrence - Presented with dizziness/presyncope - Suspected vasovagal vs orthostatic - Orthostatic vitals, layin 101/47 ,sitting 124/88, unable to check standing - Head CT - negative - ECHO - pEF, no obvious severe valve disease - Carotid US ( less likely ) - WNL - Fall precautions - PT consult Acute on Chronic stage 3 kidney disease - Improving - Baseline Cr around 2.0 - Currently 1.9 - > 2.4 - 2.6 - > 2.2 - > 2.0 - 1.9 - Lasix on hold - may consider PRN at discharge - Adjust antihypertensive - avoid hypotension - Will consult nephrology if worsening - Renally dose medication - Monitor urine output Chest pain - Resolved. - Troponin trend not consistent with acute ischemia - Delta Troponin-T - negative 6.83 - Unable to tolerate nuclear stress test - Consider Dobutamine stress however given atrial fib currently will hold off - ECHO showed pEF, no regional wall motion abnormality - poor study however - If recurrence if chest pain may have to consider cardiac catheterization - Has been stable - Will arrange outpatient follow up with cardiology Atrial fibrillation with RVR - Controlled - Noted to have SVR intermittently - Now off cardizem gtt - Change to metoprolol 12.5 mg PO Q12 ( hold if SBP< 90 or HR < 55) - Will increase to 25 mg PO BID if rate remains high - Continue anticoagulation - Monitor on telemetry - Follow with Cardiology outpatient Hyponatremia - Resolved - Etiology multi-factorial - Will not resume HCTZ - Na - > 128 - 136 - R/O SIADH On SSNRIs - Repeat BMP in AM Leukocytosis - Resolved - No clear evidence of infection - Pro-calcitonin 0.3 - Remains afebrile - Improving off abx Chronic HFpEF w/o exacerbation - Unspecified type ( Pro-BNP -1153) - Lasix 40 mg PO daily - hold - ECHO as noted above. - Daily weight - Strict input and output Acute on Chronic Hypoxemic respiratory failure - On 3L at baseline -currently at 4L - Wean o2 as tolerated. - Chest -xray - No acute findings - Titrate o2 as needed Diabetes Mellitus with hyperglycemia - Continue diabetic diet - Sliding scale insulin - Novolog 5 units TIDAC - Lantus 10 units change to BID - Continue to titrate Goal BS < 180 Obesity hypoventilation syndrome / DELMIS - Not on CPAP at home - May require sleep study outpatient - Monitoring nocturnal o2 Hypothyroidism - Continue replacement - TSH WNL Debility - PT/OT consulted - Plan to discharge to [facility] DVT ppx - On eliquis Additional A&P Information Discharge planning. Anticipate d/c in am. Attestations Medical Necessity Statement*: Additional day in hospital due to delay in bed placement at facility Time Spent in Patient Care: Greater than 35 minutes (>than 50% of time spent in counselling and/or direct pt care on unit) . Coding Level of Care Code Acute Assignment Agent for Chg Fwd Diagnoses Atrial fibrillation with RVR I48.91 Chest pain R07.9 Syncopal episodes R55 Leukocytosis D72.829 Chronic kidney disease, stage 3 N18.30 DELMIS (obstructive sleep apnea) G47.33 Diabetes mellitus type 2, noninsulin dependent E11.9 Hypertension I15.0 Hypertension type: renovascular hypertension Morbid obesity with BMI of 60.0-69.9, adult E66.01; Z68.44 History of noncompliance with medical treatment Z91.19
[2020-06-24 16:36] LABS: Glucose Point of Care 303 mg/dL (70-110)
--- NOTE | 2020-06-24 20:51 | PC.NURSE ---
Patient has no complaints at this time. Will monitor.
[2020-06-24 21:14] LABS: Glucose Point of Care 287 mg/dL (70-110)
[2020-06-24] MEDS: HYDROcodone-acetaminophen 10-325 mg Tablet 1 TAB PO (21:16)
--- NOTE | 2020-06-24 21:18 | PC.NURSE ---
Patient was awoken from her sleep to give ordered medications. Patient stated oh my back hurts really bad, can I have my pain pill? Patient rated pain as 10/10. Patient was given PRN pain medication and appeared to have fallen back asleep before the nurse left the room. Patient is alert and oriented x4. VSS. Will monitor.
[2020-06-25] VITALS (8 sets, daily range): BP systolic 97–113; BP diastolic 52–72; PULSE 81–101; RESP 12–20; TEMP 36–37.2; O2SAT 95–100
[2020-06-25] MEDS: levothyroxine 25 mcg Tablet PO (06:09)
[2020-06-25] MEDS: buPROPion SR (12 HR) 100 mg Tablet 200 MG PO (06:09)
[2020-06-25] MEDS: pantoprazole DR 40 mg Tablet PO (06:09)
[2020-06-25] MEDS: sertraline 100 mg Tablet PO (06:09)
[2020-06-25 06:25] LABS: Glucose Point of Care 296 mg/dL (70-110)
[2020-06-25] MEDS: metoprolol tartrate 25 mg Tablet 12.5 MG PO ×2 (08:48→20:44)
[2020-06-25] MEDS: gabapentin 300 mg Capsule PO ×2 (08:48→20:43)
[2020-06-25] MEDS: insulin glargine 100 units/1 mL 10 UNIT SUBCUT (08:49)
[2020-06-25] MEDS: apixaban 5 mg Tablet PO ×2 (09:12→20:44)
--- NOTE | 2020-06-25 09:57 | PC.NURSE ---
spoke with Dr. Pinto via telephone about patient Blood glucose uncontrolled instructions to increase night dose of lantus to 15 units and increase sliding scale to high dose
[2020-06-25 11:01] LABS: Glucose Point of Care 278 mg/dL (70-110)
[2020-06-25] MEDS: HYDROcodone-acetaminophen 10-325 mg Tablet 1 TAB PO ×2 (11:47→20:43)
--- NOTE | 2020-06-25 13:09 | PM.PN ---
Subjective Subjective: Interval history: 55-year-old morbidly obese female with a past medical history significant for chronic stage 3 kidney disease with creatinine ranging from 1.6 to 2.1,, insulin-dependent diabetes mellitus, generalized anxiety disorder, hypertension, hypothyroidism, obstructive sleep apnea, chronic atrial fibrillation on anticoagulation, COPD and chronic hypoxemic respiratory failure on 3L of o2 via NC who presented to the ER with recurrent episodes of dizziness, pre-syncope and chest pain. 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 Apparently this was radiating towards left upper extremity. She was directed to the emergency room. Laboratory workup on arrival showed a WBC of 14.3, hemoglobin of 12.2, hematocrit of 40.9 and a platelet count of 348. sodium 132, potassium 4.3, chloride 92, bicarb 26, BUN 18 and creatinine of 1.7. Most recent creatinine in February was 2.1. Troponin T baseline was 41 with repeat in 120 minutes of 34.17. Delta troponin T was -6.83. 6 hour troponin T was 40.5. ProBNP was elevated of 1153. Prior BNP in february of 6372. chest x-ray did not show any evidence of acute cardiopulmonary abnormality. Of note in review of records prior echocardiogram was attempted however due body habitus visualization was technically difficult on 07/2019. While in ER patient was found to be in atrial fibrillation with rapid ventricular response. She was started on IV Cardizem gtt which was weaned off shortly after as rate had improved. Upon admission a nuclear stress test was ordered however patient was not able to perform due to inability to lay flat and raise her hands for prolonged period. She was also noted to another episode of sudden onset of dizziness followed by syncopal event which was brief while on the toilet. She was suspected to have a vaso-vagel event. On my eval she was alert awake and back to baseline. She did feel nauseous and had a small bright red blood tinged emesis. This improved with IV zofran. Did not have any recurrence. Renal function had started to worsen . Creatinine had increased to 2.6. This was an increase from baseline of 1.9. She was noted to have multiple hypotensive episodes. Doses of antihypertensives were decreased and Lasix was then held. After this patient's symptoms had resolved. Did not have any further epidsodes of dizziness or chest pain. Nausea had aslo resolved. ECHO with contrast was perfomred which showed pEF. Head CT and carotid US was also performed which did not show any acute abnormality. Patient's respiratory status remains stable at baseline oxygen. Discharge was delayed due to placement to custodial. Subjective: 06/20 Noted dizzy spell again this am while attempt to get up to use restroom which resolved spontaneously. No fever, chills nausea or vomiting. Denied chest pain. 06/21 Overnight patient continued to complain of intermittent episodes of dizziness. Did not have any recurrence of her chest pain. Remained in sinus rhythm. No fever, chills, nausea vomiting. 06/22 Patient was diong much better today. States she had more energy. No recurrence of dizzy spells. Denied chest pain. Oxygen was weaned to 4L. NO fever, Chills, nausea or vomiting. Agreeable for placement to [facility]. 06/23 No new clinical events overnight. Patient stated she felt better. no fever, chill, nausea or vomiting. 06/24 Stable overnight, awaiting discharge to facility. no new complaints. 06/25 Stable overnight. awaiting placement. no new complaints. Medications: Reviewed: Yes Vitals/I&O/Wt Last Vital Signs Temp 96.8 F L 06/25/20 10:33 Pulse 88 06/25/20 10:33 Resp 18 06/25/20 10:33 BP 97/56 06/25/20 10:33 Pulse Ox 100 06/25/20 10:33 06/24/20 06/25/20 06/25/20 22:59 06:59 14:59 Intake Total 360 / 1080 600 / 1680 480 / 480 Balance 360 / 1080 600 / 1680 480 / 480 Physical Exam Narrative: EXAM NARRATIVE: General : Alert awake, oriented x 3 NAD HEENT : Grossly unremarkable CVS : irregularly irregular CHEST : Non-labored respiration ABD : Soft, Non-tender EXT : 1-2+ bilateral edema Data : 06/24/20 03:31 06/24/20 03:31 A&P Assessment and plan (1) Atrial fibrillation with RVR: Status: Acute (2) Chest pain: Status: Acute (3) Syncopal episodes: Status: Acute (4) Leukocytosis: Status: Acute (5) Chronic kidney disease, stage 3: Status: Acute (6) DELMIS (obstructive sleep apnea): Status: Acute (7) Diabetes mellitus type 2, noninsulin dependent: Status: Acute (8) Hypertension: Status: Acute Qualifiers: Hypertension type: renovascular hypertension Qualified Code(s): I15.0 - Renovascular hypertension (9) Morbid obesity with BMI of 60.0-69.9, adult: Status: Acute (10) History of noncompliance with medical treatment: Status: Acute Syncopal Episode with recurrent dizzy spells - No recurrence - Presented with dizziness/presyncope - Suspected vasovagal vs orthostatic vs POTS - Orthostatic vitals, layin 101/47 ,sitting 124/88, unable to check standing - Head CT - negative - ECHO - pEF, no obvious severe valve disease - Carotid US ( less likely ) - WNL - Fall precautions - PT consult - Resolved Acute on Chronic stage 3 kidney disease - Improving - Baseline Cr around 2.0 - Currently 1.9 - > 2.4 - 2.6 - > 2.2 - > 2.0 - 1.9 - Lasix on hold - may consider PRN at discharge - Adjust antihypertensive - avoid hypotension - Will consult nephrology if worsening - Renally dose medication - Monitor urine output -Repeat BMP in AM Chest pain - Resolved. - Troponin trend not consistent with acute ischemia - Delta Troponin-T - negative 6.83 - Unable to tolerate nuclear stress test - Consider Dobutamine stress however given atrial fib currently will hold off - ECHO showed pEF, no regional wall motion abnormality - poor study however - If recurrence if chest pain may have to consider cardiac catheterization - Has been stable - Will arrange outpatient follow up with cardiology Atrial fibrillation with RVR - Controlled - Noted to have SVR intermittently - Now off cardizem gtt - Change to metoprolol 12.5 mg PO Q12 ( hold if SBP< 90 or HR < 55) - Will increase to 25 mg PO BID if rate remains high - Continue anticoagulation - Monitor on telemetry - Follow with Cardiology outpatient Hyponatremia - Resolved - Etiology multi-factorial - Will not resume HCTZ - Na - > 128 - 136 - R/O SIADH On SSNRIs - Repeat BMP in AM Leukocytosis - Resolved - No clear evidence of infection - Pro-calcitonin 0.3 - Remains afebrile - Improving off abx Chronic HFpEF w/o exacerbation - Unspecified type ( Pro-BNP -1153) - Lasix 40 mg PO daily - hold - May consider PRN script at discharge - ECHO as noted above. - Daily weight - Strict input and output Acute on Chronic Hypoxemic respiratory failure - On 3L at baseline -currently at 3L - Chest -xray - No acute findings - Titrate o2 as needed Diabetes Mellitus with hyperglycemia - Continue diabetic diet - Sliding scale insulin - Novolog 5 units TIDAC - Lantus 10 units change to BID - Continue to titrate Goal BS < 180 Obesity hypoventilation syndrome / DELMIS - Not on CPAP at home - May require sleep study outpatient - Monitoring nocturnal o2 Hypothyroidism - Continue replacement - TSH WNL Debility - PT/OT consulted - Plan to discharge to [facility] DVT ppx - On eliquis Disposition - Discharged once placement arranged and patient is accepted to the facility. Attestations Medical Necessity Statement*: Will require further hospitalization for discharge planning. Placement pending Time Spent in Patient Care: Greater than 35 minutes (>than 50% of time spent in counselling and/or direct pt care on unit). Coding Level of Care Code Acute Box Truck Driver for g Fwd Diagnoses Atrial fibrillation with RVR I48.91 Chest pain R07.9 Syncopal episodes R55 Leukocytosis D72.829 Chronic kidney disease, stage 3 N18.30 DELMIS (obstructive sleep apnea) G47.33 Diabetes mellitus type 2, noninsulin dependent E11.9 Hypertension I15.0 Hypertension type: renovascular hypertension Morbid obesity with BMI of 60.0-69.9, adult E66.01; Z68.44 History of noncompliance with medical treatment Z91.19
[2020-06-25 16:39] LABS: Glucose Point of Care 252 mg/dL (70-110)
--- NOTE | 2020-06-25 18:27 | PC.NURSE ---
PATIENT TRANSFERRED FROM CSU TO FLOOR. SITTING UP IN BED WATCHING TV. NO COMPLAINTS AT THIS TIME.
--- NOTE | 2020-06-25 18:38 | PC.NURSE ---
Patient transferred to Med-surg room 277-1 patient alert oriented and in stable condition; all belongings sent with patient.
[2020-06-25] MEDS: insulin glargine 100 units/1 mL 15 UNIT SUBCUT (20:48)
[2020-06-25 21:09] LABS: Glucose Point of Care 312 mg/dL (70-110)
[2020-06-26 00:46] VITALS: BP 119/71; PULSE 92; RESP 18; TEMP 37; O2SAT 98
[2020-06-26 04:30] VITALS: BP 119/69; PULSE 95; RESP 18; TEMP 36.6; O2SAT 99
[2020-06-26 05:16] LABS: Basophils % 0.3 %; Eosinophils # 0.3 10^3/uL (0.0-0.8); Eosinophils % 3.3 %; Hemoglobin 9.7 g/dL (11.5-15.3); Lymphocytes # 1.5 10^3/uL (0.8-4.8); Lymphocytes % 15.8 %; Mean Corpuscular HGB Conc 27.7 g/dL (30.0-36.0); Mean Corpuscular Hemoglobin 24.3 pg (28.0-34.0); Mean Corpuscular Volume 87.7 fL (81-99); Mean Platelet Volume 11.5 fL (7.4-10.4); Monocytes # 0.5 10^3/uL (0.2-0.9); Monocytes % 5.2 %; Neutrophils # 6.94 10^3/uL (1.8-7.7); Neutrophils % 74.9 %; Nucleated Red Blood Cells % 0 %; Platelet Count 260 10^3/cmm (130-400); Red Blood Count 3.99 10^6/uL (4.1-5.3); Red Cell Distribution Width 18.3 % (12.1-15.1); White Blood Count 9.3 10^3/uL (4.0-10.0)
[2020-06-26 05:33] LABS: Anion Gap 10.7 (5-19); Blood Urea Nitrogen 26 mg/dL (6-20); Calcium 9.1 mg/dL (8.5-10.5); Carbon Dioxide 30 mmol/L (22-29); Chloride 102 mmol/L (98-107); Glomerular Filtration Rate 36.1 mL/min (90-130); Glucose 237 mg/dL (65-115); Osmolality Calculated 300 mOsm/kg (285-295); Potassium 3.7 mmol/L (3.5-5.1); Sodium 139 mmol/L (136-145)
[2020-06-26] MEDS: sertraline 100 mg Tablet PO (05:52)
[2020-06-26] MEDS: buPROPion SR (12 HR) 100 mg Tablet 200 MG PO (05:53)
[2020-06-26] MEDS: pantoprazole DR 40 mg Tablet PO (05:53)
[2020-06-26] MEDS: HYDROcodone-acetaminophen 10-325 mg Tablet 1 TAB PO ×2 (05:53→12:04)
[2020-06-26] MEDS: levothyroxine 25 mcg Tablet PO (05:53)
[2020-06-26 06:44] LABS: Glucose Point of Care 204 mg/dL (70-110)
[2020-06-26 08:00] VITALS: BP 126/81; PULSE 111; RESP 18; TEMP 36.9; O2SAT 97
[2020-06-26] MEDS: insulin glargine 100 units/1 mL 10 UNIT SUBCUT (08:52)
[2020-06-26] MEDS: apixaban 5 mg Tablet PO (08:52)
[2020-06-26] MEDS: metoprolol tartrate 25 mg Tablet 12.5 MG PO (08:52)
[2020-06-26] MEDS: gabapentin 300 mg Capsule PO (08:52)
[2020-06-26 11:13] LABS: Glucose Point of Care 325 mg/dL (70-110)
[2020-06-26 11:22] VITALS: BP 137/83; PULSE 83; RESP 16; TEMP 36.8; O2SAT 99
[2020-06-26 11:24] VITALS: PULSE 55; O2SAT 98
--- NOTE | 2020-06-26 11:30 | PC.SOCIAL ---
IMM update Pg[facility] updated and reviewed with patient who verbalized understanding, copy provided.
--- NOTE | 2020-06-26 12:23 | P.DS_ITS ---
Discharge Providers Date of Admission: 06/19/20 14:04 Date of Discharge: June 26, 2020 Attending Provider at Admission: Joaquín Chang MD Attending Provider at Discharge: Duncan Higgins MD Primary Care Provider: Mervat Nguyen Diagnoses at Discharge Discharge Diagnosis (1) Atrial fibrillation with RVR: Status: Resolved (2) Chest pain: Status: Resolved (3) Syncopal episodes: Status: Resolved (4) Leukocytosis: Status: Resolved (5) Chronic kidney disease, stage 3: Status: Resolved (6) DELMIS (obstructive sleep apnea): Status: Chronic (7) Diabetes mellitus type 2, noninsulin dependent: Status: Chronic (8) Hypertension: Status: Chronic Qualifiers: Hypertension type: renovascular hypertension Qualified Code(s): I15.0 - Renovascular hypertension (9) Morbid obesity with BMI of 60.0-69.9, adult: Status: Chronic (10) History of noncompliance with medical treatment: Status: Chronic Reason for Visit Reason for Visit: CHEST PAIN, DIZZY Hospital Course Hospital Course 55-year-old morbidly obese female with a past medical history significant for chronic stage 3 kidney disease with creatinine ranging from 1.6 to 2.1,, insulin-dependent diabetes mellitus, generalized anxiety disorder, hypertension, hypothyroidism, obstructive sleep apnea, chronic atrial fibrillation on anticoagulation, COPD and chronic hypoxemic respiratory failure on 3L of o2 via NC who presented to the ER with recurrent episodes of dizziness, pre-syncope and chest pain. patient initially presented to her information security risk analyst office where she was noted to have blurry vision, dizziness and sub-sternal chest pain. Apparently this was radiating towards left upper extremity. She was directed to the emergency room. Laboratory workup on arrival showed a WBC of 14.3, hemoglobin of 12.2, hematocrit of 40.9 and a platelet count of 348. sodium 132, potassium 4.3, chloride 92, bicarb 26, BUN 18 and creatinine of 1.7. Most recent creatinine in February was 2.1. Troponin T baseline was 41 with repeat in 120 minutes of 34.17. Delta troponin T was -6.83. 6 hour troponin T was 40.5. ProBNP was elevated of 1153. Prior BNP in february of 6372. chest x-ray did not show any evidence of acute cardiopulmonary abnormality. Of note in review of records prior echocardiogram was attempted however due body habitus visualization was technically difficult on 07/2019. While in ER patient was found to be in atrial fibrillation with rapid ventricular response. She was started on IV Cardizem gtt which was weaned off shortly after as rate had improved. Upon admission a nuclear stress test was ordered however patient was not able to perform due to inability to lay flat and raise her hands for prolonged period. She was also noted to another episode of sudden onset of dizziness followed by syncopal event which was brief while on the toilet. She was suspected to have a vaso-vagel event. On my eval she was alert awake and back to baseline. She did feel nauseous and had a small bright red blood tinged emesis. That improved with IV zofran. Did not have any recurrence. Renal function had started to worsen . Creatinine had increased to 2.6. This was an increase from baseline of 1.9. She was noted to have multiple hypotensive episodes. Doses of antihypertensives were decreased and Lasix was then held. After this patient's symptoms had resolved. Did not have any further epidsodes of dizziness or chest pain. Nausea had aslo resolved. ECHO with contrast was perfomred which showed pEF. Head CT and carotid US was also performed which did not show any acute abnormality. Patient's respiratory status remains stable at baseline oxygen. Discharge was delayed due to placement to fci but unfortunately no PT/OT Evaluation was ordered,finally when the mistake was realized PT/OT evaluation was done and she failed to qualify for any fci placement. She is being discharged to home and will follow with her PCP,endocrine as well as her information security risk analyst as outpatient. Physical Exam Const: COMMON NORMALS: patient oriented x3 HENMT: COMMON NORMALS: normocephalic, atraumatic, hearing grossly normal bilaterally and external ears normal HEAD & SCALP: normocephalic and atraumatic EXTERNAL EAR: Yes external ears normal Eye: COMMON NORMALS: no scleral icterus GENERAL EYE: appearance normal, both eyes and all related structures Chest: COMMONS NORMALS: normal inspection of the chest and normal palpation of entire chest wall CHEST: Yes Symmetrical chest wall rise Resp: COMMON NORMALS: normal respiratory effort, No retractions and clear to auscultation bilaterally EFFORT & INSPECTION: Yes symmetric chest movement AUSCULTATION: clear to auscultation bilaterally Cardio: COMMON NORMALS: regular rate, regular rhythm, S1 normal heart sound present, S2 normal heart sound present, No gallops present (Cardio), No murmurs present (Cardio), No rub (Cardio) and Peripheral pulses 2+ throughout RATE: regular rate RHYTHM: regular rhythm HEART SOUNDS: S1 normal heart sound present and S2 normal heart sound present PERIPHERAL PULSES: Peripheral pulses 2+ throughout GI: COMMON NORMALS: Normal to inspection, nondistended, normoactive bowel sounds present, Soft to palpation, non-tender, No hepatosplenomegaly present and no masses AUSCULTATION: Yes normoactive bowel sounds PALPATION: Yes Soft to palpation and Yes No hepatosplenomegaly present RECTAL EXAM: deferred Extremity: COMMON NORMALS: no clubbing, cyanosis or edema and no pedal edema Neuro: COMMON NORMALS: patient oriented x3 Discharge Data Data Completed and Pending: Completed Studies During Hospitalization Category Date Time Status CT head wo con* 7 0450 Routine Cat Scan 06/19/20 13:25 Completed XR chest 1V shania ble [id number] Stat Exams 06/18/20 15:48 Completed CV carotid duplex BI* [id number] Routine Ultrasound 06/20/20 07:00 Completed CV echo wo/w cont rast [id number] Routine Ultrasound 06/20/20 07:00 Completed US/CV paperwork R outine Ultrasound 06/20/20 Completed Pending at discharge Category Date Time Status Sestamibi Stress Test Request Routi ne Exams 06/18/20 22:08 Stop Req Sestamibi Stress Test Request Routi ne Exams 06/19/20 06:00 Stop Req Basic Metabolic P annalise AM LABS Lab 06/27/20 04:00 Ordered Basic Metabolic P annalise AM LABS Lab 06/28/20 04:00 Ordered Labs from last 24 hours 06/26/20 06/26/20 06/26/20 11:10 06:35 04:23 WBC RBC Hgb Hct MCV MCH MCHC RDW Plt Count MPV Neut % (Auto) Lymph % (Auto) [place] % (Auto) Eos % (Auto) Baso % (Auto) Neut # (Auto) Lymph # (Auto) [place] # (Auto) Eos # (Auto) Baso # (Auto) Nucleated RBC % (a uto) Nucleated RBCs # Sodium 139 Potassium 3.7 Chloride 102 Carbon Dioxide 30 H Anion Gap 10.7 BUN 26 H Creatinine 1.5 H GFR Calculation 36.1 L Glucose 237 H POC Glucose 325 204 Calculated Osmolal ity 300 H Calcium 9.1 06/26/20 06/25/20 06/25/20 04:23 21:06 16:26 WBC 9.3 RBC 3.99 L Hgb 9.7 L Hct 35.0 L MCV 87.7 MCH 24.3 L MCHC 27.7 L RDW 18.3 H Plt Count 260 MPV 11.5 H Neut % (Auto) 74.9 Lymph % (Auto) 15.8 [place] % (Auto) 5.2 Eos % (Auto) 3.3 Baso % (Auto) 0.3 Neut # (Auto) 6.94 Lymph # (Auto) 1.5 [place] # (Auto) 0.5 Eos # (Auto) 0.3 Baso # (Auto) 0.0 Nucleated RBC % (a uto) 0 Nucleated RBCs # 0.0 Sodium Potassium Chloride Carbon Dioxide Anion Gap BUN Creatinine GFR Calculation Glucose POC Glucose 312 252 Calculated Osmolal ity Calcium Vitals: Last Vital Signs Temp 98.3 F 06/26/20 11:22 Pulse 55 L 06/26/20 11:24 Resp 16 06/26/20 11:22 BP 137/83 06/26/20 11:22 Pulse Ox 98 06/26/20 11:24 Discharge Plan Discharge Patient Disposition: Home Condition: Stable Prescriptions: Continued gabapentin 300 mg capsule 300 mg PO TID RF: 0 pantoprazole 40 mg tablet,delayed release (DR/EC) 40 mg PO QAM RF: 0 ondansetron HCl 4 mg tablet 4 mg PO Q6H PRN (Reason: Nausea And Vomiting) RF: 0 levothyroxine 25 mcg tablet 25 mcg PO QAM RF: 0 nystatin 100,000 unit/gram cream See Rx Instructions .ROUTE .COMPLEX RF: 0 Basaglar KwikPen U-100 Insulin 100 unit/mL (3 mL) insulin pen See Rx Instructions .ROUTE .COMPLEX RF: 0 diclofenac sodium 1 % Gel 4 g TOPICAL QID PRN (Reason: Pain) RF: 0 cranberry 500 mg Capsule See Rx Instructions .ROUTE .COMPLEX RF: 0 Breo Ellipta 100-25 mcg/dose Blister With Device 1 inh INHALATION Q24H RF: 0 Incruse Ellipta 62.5 mcg/actuation Blister With Device 1 inh INHALATION Q24H RF: 0 Novolog U-100 Insulin aspart 100 unit/mL Solution See Rx Instructions .ROUTE .COMPLEX RF: 0 Lantus Solostar U-100 Insulin 100 unit/mL (3 mL) Insulin Pen 10 unit SUBCUT DAILY RF: 0 Imitrex 25 mg tablet 25 mg PO PRN RF: 0 Zoloft 100 mg tablet 100 mg PO QAM RF: 0 Wellbutrin SR 200 mg tablet sustained-release 12 hr 200 mg PO QAM RF: 0 metoprolol tartrate 25 mg tablet 25 mg PO Q12H RF: 0 Eliquis 5 mg tablet 5 mg PO Q12H RF: 0 Abilify 5 mg tablet 5 mg PO QAM RF: 0 Changed hydrocodone-acetaminophen 10-325 mg tablet 1 tab PO Q4H MDD 6 tabs PRN (Reason: Pain) Qty: 12 RF: 0 Discontinued furosemide 40 mg tablet 40 mg PO QAM RF: 0 hydroxyzine pamoate 25 mg capsule 25 mg PO TID PRN (Reason: Anxiety) RF: 0 Discharge Orders: Discharge Order (Routine); Ordered 06/26/20 Ordered By: Joe Gallagher Other Ambulatory Orders: Basic Metabolic Panel (Routine) Timeframe: 1 Week Facility: [facility] - Location: Lab - Main Lab Ordered By: Joe Gallagher Referrals: Teddy Flores MD [Physician] - 6 Weeks (Call to make appointment for diabetes management with in 6 weeks. ) Mervat Nguyen [Primary Care Provider] - 07/09/20 12:00 pm Renee Gutierrez MD [Physician] - 07/01/20 10:30 am Discharge Diet: Cardiac and Diabetic Discharge Activity: Increase activity as tolerated Activity Restrictions/Additional Instructions: Monitor blood pressure twice daily. HOLD Lasix until follow up with cardiology. Repeat BMP with in the next week to monitor your kidney function. Return to Hospital if any recurrence of dizziness, chest pain or shortness of breath. Monitor daily weight Blood sugar checks in am and three times a day with meals Discharge Attestations Time Spent in Discharge Care*: greater than 30 min Specific Discharge Activities: educating patient, educating and/or supporting family/caregiver, discussing with pcp/other providers, discussing with case worker/social workers/dc planners, documenting/other paperwork and evaluating patient/reviewing data Status at Discharge: Cognitive status at discharge: cognitively intact , Behavioral status at discharge: cooperative , Quality Metrics Clinical Quality Measures During this hospital stay, did patient experience: None Coding Level of Care Code Acute Tour Sales Representative for Chg Fwd Exam Comprehensive Diagnoses Atrial fibrillation with RVR I48.91 Chest pain R07.9 Syncopal episodes R55 Leukocytosis D72.829 Chronic kidney disease, stage 3 N18.30 DELMIS (obstructive sleep apnea) G47.33 Diabetes mellitus type 2, noninsulin dependent E11.9 Hypertension I15.0 Hypertension type: renovascular hypertension Morbid obesity with BMI of 60.0-69.9, adult E66.01; Z68.44 History of noncompliance with medical treatment Z91.19
[2020-06-26 13:40] VITALS: BP 137/83; PULSE 55; RESP 16; TEMP 36.8; O2SAT 98
== END 2020-06-26 15:52 | disposition home or self-care (01) | DRG 308 ==
LOC: ER 18:17 → CSU 20:14 → MEDSURG 06-25 18:25
PROVIDERS: Family Medicine; Hospitalist; Admitting Provider Internal Medicine; Emergency Provider Emergency Medicine; PCP Internal Medicine; Visit Provider Internal Medicine
DX: I48.20 Chronic atrial fibrillation, unspecified (principal); J96.21 Acute and chronic respiratory failure with hypoxia; Z68.44 Body mass index [BMI] 60.0-69.9, adult; J96.11 Chronic respiratory failure with hypoxia; F33.2 Major depressive disorder, recurrent severe without psychotic features; I50.32 Chronic diastolic (congestive) heart failure; I13.0 Hypertensive heart and chronic kidney disease with heart failure and stage 1 through stage 4 chronic kidney disease, or unspecified chronic kidney disease; G45.9 Transient cerebral ischemic attack, unspecified; I20.0 Unstable angina; N18.30 Chronic kidney disease, stage 3 unspecified; I10 Essential (primary) hypertension; G47.33 Obstructive sleep apnea (adult) (pediatric); E11.22 Type 2 diabetes mellitus with diabetic chronic kidney disease; E66.01 Morbid (severe) obesity due to excess calories; F41.1 Generalized anxiety disorder; E03.9 Hypothyroidism, unspecified; Z79.01 Long term (current) use of anticoagulants; J44.9 Chronic obstructive pulmonary disease, unspecified; Z99.81 Dependence on supplemental oxygen; Z87.891 Personal history of nicotine dependence
CPT/HCPCS: 12345; 36415; 36416; 70450; 71045; 80048; 80053; 81001; 82570; 82607; 82962; 83880; 84145; 84300; 84443; 84484; 84550; 85025; 85378; 93005; 93880; 96372; 96375; 97161; 99283; C8929; G0378; J1815 ×2; J1940; J2405; J3490; J8597; Q9956

== ENCOUNTER 2020-07-04 14:41 | Inpatient (IN) | payer MEDICARE, MEDICAID, SELFPAY ==
[2020-07-04] VITALS (8 sets, daily range): BP systolic 133–168; BP diastolic 77–115; PULSE 88–110; RESP 16–32; TEMP 37.6; O2SAT 93–98; BMI 57.4
--- NOTE | 2020-07-04 15:00 | XRR_ITS ---
PROCEDURE INFORMATION: Exam: XR Chest, 1 View Exam date and time: 07/04/2020 3:21 PM Age: 55 years old Clinical indication: Cough and shortness of breath; Patient HX: C/O cough and SOB; Additional info: Dyspnea/cough TECHNIQUE: Imaging protocol: XR of the chest Views: 1 view. COMPARISON: CR XR chest 1V portable [id number] 06/18/2020 4:06 PM FINDINGS: Lungs: Vascular congestion. Mild interstitial opacities in both lungs. Pleural space: Suspected left pleural effusion. No pneumothorax. Heart/Mediastinum: Mild cardiomegaly. Bones/joints: Unremarkable. XR/XR chest 1V portable [id number] IMPRESSION: Congestive heart failure pattern.
--- NOTE | 2020-07-04 15:00 | ECG_ITS ---
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 Measurements Intervals [place] Rate: 90 P: [place]: QRS: 121 QRSD: 87 T: 43 QT: 374 QTc: 459 Interpretive Statements ATRIAL FIBRILLATION PATTERN CONSISTENT WITH PULMONARY DISEASE POSSIBLE RIGHT VENTRICULAR HYPERTROPHY [SOME/ALL OF: PROMINENT R IN V1, LATE TRANSITION, RAD, [place], SSS] MINIMAL ST DEPRESSION [0.025+ mV ST DEPRESSION] Compared to ECG 07/04/2020 17:27:17 ST (T wave) deviation now present Myocardial infarct finding no longer present T-wave abnormality no longer present Possible ischemia no longer present Electronically Signed On 07-05-2020 17:53:37 HOT BOX OPERATOR by Sathya Sellers M.D. [id number]
[2020-07-04 15:25] LABS: Basophils # 0.1 10^3/uL (0.0-0.1); Basophils % 0.4 %; Eosinophils # 0.2 10^3/uL (0.0-0.8); Eosinophils % 1.4 %; Hematocrit 32.3 % (37.0-47.0); Hemoglobin 9.6 g/dL (11.5-15.3); Lymphocytes # 0.8 10^3/uL (0.8-4.8); Lymphocytes % 6.9 %; Mean Corpuscular HGB Conc 29.7 g/dL (30.0-36.0); Mean Corpuscular Hemoglobin 24.9 pg (28.0-34.0); Mean Corpuscular Volume 83.7 fL (81-99); Mean Platelet Volume 11.8 fL (7.4-10.4); Monocytes # 0.5 10^3/uL (0.2-0.9); Monocytes % 4.5 %; Neutrophils # 9.62 10^3/uL (1.8-7.7); Neutrophils % 86.1 %; Nucleated Red Blood Cells % 0 %; Platelet Count 266 10^3/cmm (130-400); Red Blood Count 3.86 10^6/uL (4.1-5.3); Red Cell Distribution Width 18.6 % (12.1-15.1); White Blood Count 11.2 10^3/uL (4.0-10.0)
[2020-07-04 15:27] LABS: ABG PCO2 39.9 mmHg (35-45); ABG PH Result 7.43 (7.35-7.45); Arterial Blood Gas Hematocrit 30.9 % (37-47); Base Excess ABG 1.9 mmol/L (-2.0-2.0); Blood Gas Allen Test Pos; Blood Gas Sample Type Arterial; HCO3 ABG 26.4 mmol/L (22-26); HGB O2 Sat 96.9 % (95-100); Ionized Calcium Level - ABG 1.2 mmol/L (1.1-1.4); Methemoglobin 0.9 % (0.4-1.5); Oxygen Saturation ABG 98.8; Potassium Level - ABG 3.7 mmol/L (3.5-5.0); Total Hemoglobin 10.1 g/dL (12-16)
[2020-07-04 15:28] LABS: Alveolar-Arterial Oxygen Gradi 11.7 mmHg (5-10); Blood Gas Operator Identificat ED; Blood Gas Sample Site Radial, left; Oxygen Device NC
--- NOTE | 2020-07-04 15:37 | ED_ITS ---
HPI - SOB/Dyspnea General: Chief Complaint: Shortness of Breath/Dyspnea Stated Complaint: SOB Time Seen by Provider: 07/04/20 14:55 History of Present Illness: HPI Narrative: 55-year-old female presents emergency room with complaint of shortness of breath. She is known history of severe COPD and is on chronic 6 L/min EMS states when they arrived there on her oxygen source she was at 6 L/min and her sats were 86% when they put put her on the ambulance crew's oxygen source she was at 90%'s. She has a history of diabetes mellitus congestive heart failure chronic kidney disease obstructive sleep apnea and atrial fibrillation additional morbid obesity MD elicited complaint: shortness of breath and cough Pertinent past history: COPD and congestive heart failure Onset (ago): hour(s) Associated symptoms: Reports chest congestion, cough and myalgias; Deny abdominal pain, fever(s), lightheadedness, nausea or vomiting Review of Systems Const: Denies: fever(s), chills, body aches, change in appetite, fatigue or malaise ENMT: Denies: throat pain, ear or mastoid pain, nasal discharge or nasal congestion Card: Denies: lightheadedness Resp: Reports: chest congestion GI: Denies: abdominal pain, nausea, vomiting, hematemesis, coffee ground emesis, diarrhea, constipation, bloating, hematochezia or melena : Denies: flank pain, difficulty voiding, dysuria, urinary frequency or urinary urgency Skin/Breast: Denies: rash or pruritus PFS ED PFSH: Medical History (Updated 07/04/20 @ 17:43 by Edy Mott DO) Atrial fibrillation Chronic anticoagulation On hold due to vaginal bleeding Chronic kidney disease, stage III (moderate) Cr has ranged 1.6-2.1 since 11/27 Congestive heart failure COPD (chronic obstructive pulmonary disease) Diabetes mellitus type 2, noninsulin dependent Generalized anxiety disorder Hoarding disorder with excessive acquisition Hypertension Hypothyroidism last TSH in 03/30 was 6.18 Major depressive disorder, recurrent severe without psychotic features Morbid obesity with BMI of 60.0-69.9, adult DELMIS (obstructive sleep apnea) Oxygen dependent Surgical History History of dental surgery Status post biopsy of skin Family History Other Chronic kidney disease (CKD) Diabetes Hypertension Thyroid disease Social History Smoking and tobacco status: former smoker Alcohol intake: never Marital status details: is wheelchair-bound, Current gender identity: Female Physical Exam Const: COMMON NORMALS: no acute distress GENERAL APPEARANCE: cooperative and comfortable ORIENTATION/CONSCIOUSNESS: Yes awake, Yes oriented to person, Yes oriented to place and Yes oriented to time HENMT: COMMON NORMALS: normocephalic, atraumatic and hearing grossly normal bilaterally HEAD & SCALP: normocephalic and atraumatic Neck/C-Spine: COMMON NORMALS: no JVD Resp: COMMON NORMALS: normal respiratory effort, No retractions and No use of accessory muscles AUSCULTATION: wheezes and diminished lung sounds Cardio: COMMON NORMALS: no JVD, regular rate, regular rhythm and No murmurs present (Cardio) RATE: regular rate RHYTHM: regular rhythm GI: COMMON NORMALS: Soft to palpation and No hepatosplenomegaly present AUSCULTATION: Yes normoactive bowel sounds PALPATION: Yes Soft to palpation, No Tenderness to palpation present (GI), No Guarding due to palpation present (GI) and Yes No hepatosplenomegaly present Extremity: COMMON NORMALS: normal to inspection, capillary refill normal, no clubbing, cyanosis or edema, no calf tenderness and no pedal edema Neuro: SENSORIUM/ORIENTATION: Yes oriented to person, Yes oriented to place and Yes oriented to time Skin: COMMON NORMALS: no rashes or lesions noted GENERAL SKIN EXAM: no rashes or lesions noted Course Vital Signs: Vital signs: Vital Signs Temperature 99.7 F H 07/04/20 14:42 Pulse Rate 100 07/04/20 14:42 Respiratory Rate 32 H 07/04/20 14:42 Blood Pressure 168/115 07/04/20 14:42 Pulse Oximetry 98 07/04/20 14:42 MDM - SOB/Dyspnea MDM Narrative: Medical decision making narrative: Patient has elevated blood pressure additionally she has COPD looks like she has a preserved ejection fraction on the old records. Blood pressure I think is driving part of it. Chest x-ray does show CHF pattern we will go ahead and admit discussed with Lab Data: Labs: Lab Results 07/04/20 07/04/20 07/04/20 Range/Units 15:15 15:15 15:15 WBC 11.2 H (4.0-10.0) 10^3/ uL RBC 3.86 L (4.1-5.3) 10^6/u L Hgb 9.6 L (11.5-15.3) g/dL Hct 32.3 L (37.0-47.0) % MCV 83.7 (81-99) fL MCH 24.9 L (28.0-34.0) pg MCHC 29.7 L (30.0-36.0) g/dL RDW 18.6 H (12.1-15.1) % Plt Count 266 (130-400) 10^3/c mm MPV 11.8 H (7.4-10.4) fL Neut % (Auto) 86.1 % Lymph % (Auto) 6.9 % [place] % (Auto) 4.5 % Eos % (Auto) 1.4 % Baso % (Auto) 0.4 % Neut # (Auto) 9.62 H (1.8-7.7) 10^3/u L Lymph # (Auto) 0.8 (0.8-4.8) 10^3/u L [place] # (Auto) 0.5 (0.2-0.9) 10^3/u L Eos # (Auto) 0.2 (0.0-0.8) 10^3/u L Baso # (Auto) 0.1 (0.0-0.1) 10^3/u L Nucleated RBC % (a uto) 0 % Nucleated RBCs # 0.0 /100WBC Specimen Type Sample Site ABG pH (7.35-7.45) ABG pCO2 (35-45) mmHg ABG pO2 (80.0-100.0) mmH g ABG HCO3 (22-26) mmol/L ABG O2 Saturation ABG Base Excess (-2.0-2.0) mmol/ L Elian Test A-a O2 Gradient (5-10) mmHg Hematocrit (37-47) % Hgb O2 Saturation (95-100) % Carboxyhemoglobin (0.4-20.1) %THgb Methemoglobin (0.4-1.5) % Total Hemoglobin (12-16) g/dL Ionized Calcium (1.1-1.4) mmol/L O2 Delivery Device O2 Liters/Min % FiO2 % Automatic Data Processing Planner ID Sodium 135 L (136-145) mmol/L Potassium 3.8 (3.5-5.1) mmol/L Chloride 100 (98-107) mmol/L Carbon Dioxide 26 (22-29) mmol/L Anion Gap 12.8 (5-19) BUN 13 (6-20) mg/dL Creatinine 1.5 H (0.5-0.9) mg/dL GFR Calculation 36.1 L (90-130) mL/min Glucose 338 H (65-115) mg/dL Calculated Osmolal ity 293 (285-295) mOsm/k g Calcium 8.8 (8.5-10.5) mg/dL Total Bilirubin 2.0 H (0.15-1.2) mg/dL AST 11 (0-32) U/L ALT 15 (0-33) U/L Alkaline Phosphata se 108 H (35-105) IU/L Troponin T Baselin e 31 H (0-10) ng/L Total Protein 6.3 L (6.6-8.7) g/dL Albumin 3.7 (3.5-5.2) g/dL Globulin 2.6 (1.3-4.6) g/dL Urine Color (Yellow) Urine Appearance (CLEAR) Urine pH (5-7) Ur Specific Gravit y (1.005-1.030) Urine Protein (Negative) Urine Glucose (UA) (Normal) Urine Ketones (Negative) Urine Blood (Negative) Urine Nitrate (Negative) Urine Bilirubin (Negative) Urine Urobilinogen (Negative) mg/dL Ur Leukocyte [place] ase (Negative) Urine RBC (0-2) /hpf Urine WBC (0-5) /hpf Ur Squamous Epith Cells (0-5) /hpf Amorphous Sediment Urine Bacteria (NONE) /hpf Urine Mucus /hpf 07/04/20 07/04/20 Range/Units 15:17 15:38 WBC (4.0-10.0) 10^3/ uL RBC (4.1-5.3) 10^6/u L Hgb (11.5-15.3) g/dL Hct (37.0-47.0) % MCV (81-99) fL MCH (28.0-34.0) pg MCHC (30.0-36.0) g/dL RDW (12.1-15.1) % Plt Count (130-400) 10^3/c mm MPV (7.4-10.4) fL Neut % (Auto) % Lymph % (Auto) % [place] % (Auto) % Eos % (Auto) % Baso % (Auto) % Neut # (Auto) (1.8-7.7) 10^3/u L Lymph # (Auto) (0.8-4.8) 10^3/u L [place] # (Auto) (0.2-0.9) 10^3/u L Eos # (Auto) (0.0-0.8) 10^3/u L Baso # (Auto) (0.0-0.1) 10^3/u L Nucleated RBC % (a uto) % Nucleated RBCs # /100WBC Specimen Type Arterial Sample Site Radial, left ABG pH 7.43 (7.35-7.45) ABG pCO2 39.9 (35-45) mmHg ABG pO2 171.0 H (80.0-100.0) mmH g ABG HCO3 26.4 H (22-26) mmol/L ABG O2 Saturation 98.8 ABG Base Excess 1.9 (-2.0-2.0) mmol/ L Elian Test Pos A-a O2 Gradient 11.7 H (5-10) mmHg Hematocrit 30.9 L (37-47) % Hgb O2 Saturation 96.9 (95-100) % Carboxyhemoglobin 1.0 (0.4-20.1) %THgb Methemoglobin 0.9 (0.4-1.5) % Total Hemoglobin 10.1 L (12-16) g/dL Ionized Calcium 1.2 (1.1-1.4) mmol/L O2 Delivery Device Nc O2 Liters/Min 6.0 % FiO2 44.0 % Automatic Data Processing Planner ID Ed Sodium 137.0 (136-145) mmol/L Potassium 3.7 (3.5-5.1) mmol/L Chloride (98-107) mmol/L Carbon Dioxide (22-29) mmol/L Anion Gap (5-19) BUN (6-20) mg/dL Creatinine (0.5-0.9) mg/dL GFR Calculation (90-130) mL/min Glucose 319.0 H (65-115) mg/dL Calculated Osmolal ity (285-295) mOsm/k g Calcium (8.5-10.5) mg/dL Total Bilirubin (0.15-1.2) mg/dL AST (0-32) U/L ALT (0-33) U/L Alkaline Phosphata se (35-105) IU/L Troponin T Baselin e (0-10) ng/L Total Protein (6.6-8.7) g/dL Albumin (3.5-5.2) g/dL Globulin (1.3-4.6) g/dL Urine Color Yellow (Yellow) Urine Appearance Sl hazy (CLEAR) Urine pH 6.5 (5-7) Ur Specific Gravit y 1.010 (1.005-1.030) Urine Protein 3+ H (Negative) Urine Glucose (UA) 2+ (Normal) Urine Ketones Negative (Negative) Urine Blood 2+ H (Negative) Urine Nitrate Negative (Negative) Urine Bilirubin 1+ H (Negative) Urine Urobilinogen 4 H (Negative) mg/dL Ur Leukocyte [place] ase Negative (Negative) Urine RBC 5-10 H (0-2) /hpf Urine WBC 0-4 H (0-5) /hpf Ur Squamous Epith Cells 25-40 H (0-5) /hpf Amorphous Sediment Not Reportable Urine Bacteria Trace (NONE) /hpf Urine Mucus Trace /hpf Discharge Plan Discharge Patient Disposition: Admitted As Inpatient Clinical Impression: Congestive heart failure, Morbid obesity with BMI of 60.0-69.9, adult, Diabetes mellitus type 2, noninsulin dependent, Hypertension Condition: Stable Prescriptions: No Action gabapentin 300 mg capsule 300 mg PO TID RF: 0 pantoprazole 40 mg tablet,delayed release (DR/EC) 40 mg PO DAILY RF: 0 ondansetron HCl 4 mg tablet 4 mg PO Q6H PRN (Reason: Nausea And Vomiting) RF: 0 levothyroxine 25 mcg tablet 25 mcg PO QAM RF: 0 nystatin 100,000 unit/gram cream See Rx Instructions .ROUTE .COMPLEX RF: 0 Basaglar KwikPen U-100 Insulin 100 unit/mL (3 mL) insulin pen 10 unit SUBCUT DAILY RF: 0 diclofenac sodium 1 % Gel 4 g TOPICAL QID PRN (Reason: Pain) RF: 0 cranberry 500 mg Capsule See Rx Instructions .ROUTE .COMPLEX RF: 0 Breo Ellipta 100-25 mcg/dose Blister With Device 1 inh INHALATION Q24H RF: 0 Incruse Ellipta 62.5 mcg/actuation Blister With Device 1 inh INHALATION Q24H RF: 0 insulin aspart U-100 [Novolog U-100 Insulin aspart] 100 unit/mL Solution See Rx Instructions .ROUTE .COMPLEX RF: 0 sumatriptan succinate [Imitrex] 25 mg tablet 25 mg PO PRN RF: 0 sertraline [Zoloft] 100 mg tablet 100 mg PO QAM RF: 0 bupropion HCl [Wellbutrin SR] 200 mg tablet sustained-release 12 hr 200 mg PO QAM RF: 0 metoprolol tartrate 25 mg tablet 25 mg PO Q12H RF: 0 Eliquis 5 mg tablet 5 mg PO Q12H RF: 0 aripiprazole [Abilify] 5 mg tablet 5 mg PO QAM RF: 0 hydrocodone-acetaminophen 10-325 mg tablet 1 tab PO Q4H MDD 6 tabs PRN (Reason: Pain) Qty: 12 RF: 0 Referrals: Mervat Nguyen [Primary Care Provider] - Coding Level of Care Code ED Media Senior Recruiter for Chg Fwd Exam Comprehensive
[2020-07-04 15:44] LABS: Alanine Aminotransferase 15 U/L (0-33); Albumin Level 3.7 g/dL (3.5-5.2); Alkaline Phosphatase 108 IU/L (35-105); Anion Gap 12.8 (5-19); Aspartate Amino Transferase 11 U/L (0-32); Blood Urea Nitrogen 13 mg/dL (6-20); Calcium 8.8 mg/dL (8.5-10.5); Carbon Dioxide 26 mmol/L (22-29); Chloride 100 mmol/L (98-107); Globulin 2.6 g/dL (1.3-4.6); Glomerular Filtration Rate 36.1 mL/min (90-130); Glucose 338 mg/dL (65-115); Osmolality Calculated 293 mOsm/kg (285-295); Potassium 3.8 mmol/L (3.5-5.1); Sodium 135 mmol/L (136-145); Total Protein 6.3 g/dL (6.6-8.7)
[2020-07-04 15:46] LABS: Troponin(5th) Baseline 31 ng/L (0-10)
[2020-07-04 16:02] LABS: Urine Appearance SL Hazy (CLEAR); Urine Color Yellow (Yellow)
[2020-07-04 16:03] LABS: Add Urine Microscopic? YES; Bilirubin Urine 1+ (Negative); Blood Urine 2+ (Negative); Glucose Urine UA 2+ (Normal); Ketones Urine Negative (Negative); Leukocyte Esterase Urine Negative (Negative); Nitrate Urine Negative (Negative); Protein Urine 3+ (Negative); Urobilinogen Urine 4 mg/dL (Negative); pH Urine 6.5 (5-7)
[2020-07-04 16:08] LABS: Add Urine Culture? No; Bacteria Urine TRACE /hpf; Mucus Urine TRACE /hpf; Squamous Epithelial Cell Urine 25-40 /hpf (0-5); WBC Urine 0-4 /hpf (0-5)
--- NOTE | 2020-07-04 17:00 | ECG_ITS ---
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 Measurements Intervals [place] Rate: 97 P: [place]: QRS: 55 QRSD: 109 T: -3 QT: 367 QTc: 467 Interpretive Statements ATRIAL FIBRILLATION INDETERMINATE AXIS LOW QRS VOLTAGE IN EXTREMITY LEADS [QRS DEFLECTION < 0.5 mV IN LIMB LEADS] POSSIBLE ANTERIOR MYOCARDIAL INFARCTION , PROBABLY OLD Compared to ECG 06/18/2020 23:18:29 Indeterminate axis now present Low QRS voltage now present Myocardial infarct finding now present Atrial abnormality no longer present Electronically Signed On 07-07-2020 10:07:54 INDUSTRIAL MAINTENANCE REPAIRER HELPER by Renee Gutierrez M.D. [id number]
[2020-07-04 18:05] LABS: Troponin 5 2HR 29.35 ng/L (0-10); Troponin 5 2HR Delta -1.65 ABS# (0-10)
[2020-07-04] MEDS: hyDRALAzine 20 mg/mL INJ 1 mL 10 MG IVP (18:23)
[2020-07-04] MEDS: FUROsemide 10 mg/mL SDV 10mL 80 MG IVP (18:23)
[2020-07-04 18:33] LABS: SARS Covid-2 Antigen Negative (Negative)
--- NOTE | 2020-07-04 19:05 | PM.HP ---
Providers/Chief Complaint Primary Care Provider: Mervat Nguyen Chief Complaint: SOB History of Present Illness 55-year-old lady after recent hospitalization and discharged on 06/26 at which time was treated for A. fib with RVR, assess for syncopal episodes due to which her Lasix were discontinued on discharge returns to the hospital due to shortness of breath. She reports had mild shortness of breath after discharge from the hospital, however, this has gotten worse, and has been pretty bad last couple of days. She reports mild cough. Reports some chest tightness which is worse with deep breathing. She reports orthopnea. Dyspnea with exertion. Has lower extremity edema. In ER she is afebrile, although temp 99.7. Rapid COVID-19 test is negative. Chest x-ray shows morphology of CHF. Troponin noted minimally elevated at 31. At 2 hours it is 29.35. EKG with atrial fibrillation. She is noted to have WBC count of 11.2. Hemoglobin 9.6. PO2 is 171 on 6 L nasal cannula. She states she has been using nasal cannula 6 L ever since last discharge. Sodium is noted 135. Creatinine 1.5. T bili 2.0. Alk phos 108. UA is with 5-10 RBCs, 0-4 WBC, 25-40 squamous epithelial cells. Reportedly on EMS assessment at home she was saturating 85% on her usual 6 L. In ER she received a dose of 80 mg of Lasix. She was noted hypertensive, 168/115, and received 1 dose of tomogram IV hydralazine. Review of Systems Const: Reports: other (Reports has not been sleeping very well. Short of breath at night.); Denies: fever(s), chills, body aches or malaise Eyes: Denies: change in vision or eye redness ENMT: Denies: throat pain, oral sores or ear or mastoid pain Card: Reports: edema, dyspnea on exertion and orthopnea; Denies: chest pain or pre-syncope Resp: Reports: non-productive cough (Mild) and pain on inspiration; Denies: dyspnea, productive cough, change in phlegm color or hemoptysis GI: Denies: abdominal pain, nausea, vomiting, diarrhea, constipation, hematochezia or melena : Denies: flank pain, urinary frequency or hematuria Musc: Denies: back pain, joint swelling or joint redness Skin/Breast: Reports: rash (Reports some chronic redness on right lower extremity) and other; Denies: sores or new lesions Neuro: Denies: headache(s), numbness in extremities, weakness in extremities, dizziness, confusion or seizure-like activity Endo: Denies: polyuria or polydipsia Leonid/Lymph: Denies: easy bleeding or purpura All/Imm: Denies: urticaria, throat swelling or tongue swelling Medications/Allergies Home Medications Medication Instructions Recorded Confirmed Last Taken Type diclofenac sodium 4 g TOPICAL QID PRN 08/07/19 07/04/20 11/08/19 History gabapentin 300 mg capsule 300 mg PO TID 10/05/19 07/04/20 02/05/20 History Basaglar KwikPen U-100 Insulin 10 unit SUBCUT DAILY 03/03/20 07/04/20 06/18/20 13:00 History 7 UNITS levothyroxine 25 mcg PO QAM 03/03/20 07/04/20 06/18/20 History nystatin See Rx Instructions .ROUTE .COMPLEX 03/03/20 07/04/20 Unknown History ondansetron HCl 4 mg PO Q6H PRN 03/03/20 07/04/20 Unknown History Breo Ellipta 1 inh INHALATION Q24H 06/18/20 07/04/20 Unknown History Eliquis 5 mg PO Q12H 06/18/20 07/04/20 06/18/20 09:00 History Incruse Ellipta 1 inh INHALATION Q24H 06/18/20 07/04/20 Unknown History aripiprazole [Abilify] 5 mg PO QAM 06/18/20 07/04/20 Unknown History bupropion HCl [Wellbutrin SR] 200 mg PO QAM 06/18/20 07/04/20 06/17/20 History cranberry See Rx Instructions .ROUTE .COMPLEX 06/18/20 07/04/20 Unknown History insulin aspart U-100 [Novolog See Rx Instructions .ROUTE .COMPLEX 06/18/20 07/04/20 07/03/20 History U-100 Insulin aspart] metoprolol tartrate 25 mg PO Q12H 06/18/20 07/04/20 06/18/20 09:00 History pantoprazole 40 mg tablet,delayed 40 mg PO DAILY 06/18/20 07/04/20 06/18/20 History release sertraline [Zoloft] 100 mg PO QAM 06/18/20 07/04/20 Unknown History sumatriptan succinate [Imitrex] 25 mg PO PRN 06/18/20 07/04/20 Unknown History hydrocodone-acetaminophen 1 tab PO Q4H PRN #12 tab MDD 6 tabs 06/24/20 07/04/20 Unknown Rx Allergies Allergy/AdvReac Type Severity Reaction Status Date / Time Tetracyclines Allergy Severe ALGY-Anaphy Verified 06/18/20 15:27 laxis wool Allergy Intermediate ALGY-Hives Verified 06/18/20 15:27 mushroom Allergy Unknown Verified 07/04/20 15:51 adhesive AdvReac Unknown Verified 06/18/20 15:27 Artificial Sweetners AdvReac Intermediate ADR-Headach Uncoded 07/20/19 04:24 e PFSH Acute PFSH: Medical History Atrial fibrillation Chronic anticoagulation On hold due to vaginal bleeding Chronic kidney disease, stage III (moderate) Cr has ranged 1.6-2.1 since 11/27 Congestive heart failure COPD (chronic obstructive pulmonary disease) Diabetes mellitus type 2, noninsulin dependent Generalized anxiety disorder Hoarding disorder with excessive acquisition Hypertension Hypothyroidism last TSH in 03/30 was 6.18 Major depressive disorder, recurrent severe without psychotic features Morbid obesity with BMI of 60.0-69.9, adult DELMIS (obstructive sleep apnea) Oxygen dependent Surgical History History of dental surgery Status post biopsy of skin Family History Other Chronic kidney disease (CKD) Diabetes Hypertension Thyroid disease Social History Smoking and tobacco status: former smoker Alcohol intake: never Substance/Drug Use: never Lives independently: Yes Household members: spouse Marital status: Marital status details: is wheelchair-bound, Current occupational status: disabled Current gender identity: Female Vitals/I&O/Wt Last Vital Signs Temp 99.7 F H 07/04/20 14:42 Pulse 97 07/04/20 18:21 Resp 16 07/04/20 18:21 BP 154/102 07/04/20 18:21 Pulse Ox 93 07/04/20 18:21 Weight last 48 hrs Weight 181.437 kg Physical Exam Const: COMMON NORMALS: no acute distress and patient oriented x3 HENMT: COMMON NORMALS: oropharynx normal Neck/C-Spine: COMMON NORMALS: no JVD Resp: COMMON NORMALS: normal respiratory effort AUSCULTATION: diminished lung sounds Cardio: COMMON NORMALS: no JVD, regular rhythm, S1 normal heart sound present, S2 normal heart sound present and No murmurs present (Cardio) RHYTHM: regular rhythm HEART SOUNDS: S1 normal heart sound present and S2 normal heart sound present GI: COMMON NORMALS: Normal to inspection, nondistended, normoactive bowel sounds present, Soft to palpation and non-tender PALPATION: Yes Soft to palpation Extremity: COMMON NORMALS: no pedal edema GENERAL: Yes edema (2+ LE, pannus) Neuro: COMMON NORMALS: patient oriented x3 and moves all extremities Skin: COMMON NORMALS: no rashes or lesions noted GENERAL SKIN EXAM: no rashes or lesions noted OTHER: Some chronic stasis changes, mild erythema of lower left leg above the ankle. Chronic stasis changes on the pannus. Urinary Catheter Management^: Casiano: Cath Placed During This Visit: yes Reason for Continuing Indwelling Catheter: Other Urinary Catheter Date of Insertion: 07/04/20 Urinary Catheter Time of Insertion: 15:40 Data : 07/04/20 15:15 07/04/20 15:15 A&P Assessment and plan (1) Congestive heart failure: Has not taken Lasix since last discharge. Also has sleep apnea, not using CPAP, awaiting sleep study. Acute diastolic CHF exacerbation. Hypoxic respiratory failure on presentation. DDimer pending. Last admission TTE with contrast, poor quality study, but appears ejection fraction around 60%, no very significant valvular abnormality. Received 80 mg IV Lasix in ER. We will continue 60 mg IV twice daily. Monitor renal function. Monitor I&O. Volume status. Status: Acute (2) Hypertension: In addition to Lasix received 10 mg IV hydralazine in ER. Will continue metoprolol. Lasix IV. Cardiac diet. Monitor blood pressures. Status: Acute (3) Morbid obesity with BMI of 60.0-69.9, adult: Status: Chronic (4) Atrial fibrillation: A. fib with RVR during previous admission. Continue metoprolol. Continue Eliquis. Status: Acute Qualifiers: Atrial fibrillation type: longstanding persistent Qualified Code(s): I48.11 - Longstanding persistent atrial fibrillation (5) DEMLIS (obstructive sleep apnea): States she has not been using CPAP as she needs a new sleep study. She says she is scheduled for sleep study in August. Status: Chronic (6) Diabetes mellitus type 2, noninsulin dependent: Status: Chronic (7) Chronic kidney disease, stage III (moderate): Status: Acute (8) Hypertension: Status: Chronic Qualifiers: Hypertension type: renovascular hypertension Qualified Code(s): I15.0 - Renovascular hypertension Additional A&P Information Mild leukocytosis: This time does not appear to have pneumonia or pulmonary infection. Has mild dry cough. Monitor. Mild erythema of left lower extremity. She reports chronic. Monitor. Mild troponin elevation: Without peak. Appears comparable to her prior admission. No chest pain apart from some pleuritic discomfort. Complete troponin EKG series. Attestations Medical Necessity Statement*: Admission of over 2 midnights is continued for assessment management of CHF exacerbation in the setting of chronic kidney disease, sleep apnea, morbid obesity, and other comorbidities. Coding Level of Care Code Acute Life Skills Teacher for g Fwd Diagnoses Congestive heart failure I50.9 Hypertension I10 Morbid obesity with BMI of 60.0-69.9, adult E66.01; Z68.44 Atrial fibrillation I48.11 Atrial fibrillation type: longstanding persistent DELMIS (obstructive sleep apnea) G47.33 Diabetes mellitus type 2, noninsulin dependent E11.9 Chronic kidney disease, stage III (moderate) N18.3 Hypertension I15.0 Hypertension type: renovascular hypertension
--- NOTE | 2020-07-04 21:00 | ECG_ITS ---
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 Measurements Intervals [place] Rate: 96 P: IA: QRS: 124 QRSD: 80 T: -81 QT: 355 QTc: 450 Interpretive Statements ATRIAL FIBRILLATION POSSIBLE ANTERIOR MYOCARDIAL INFARCTION , PROBABLY OLD MODERATE T-WAVE ABNORMALITY, CONSIDER INFERIOR ISCHEMIA Compared to ECG 07/04/2020 14:50:29 T-wave abnormality now present Possible ischemia now present Indeterminate axis no longer present Myocardial infarct finding still present Electronically Signed On 07-07-2020 10:06:29 GENERAL LABOR FORKLIFT OPERATOR by Renee Gutierrez M.D. [id number]
[2020-07-04 22:22] LABS: Troponin 5 6HR 28.35 ng/L (0-10)
[2020-07-04 22:24] LABS: D Dimer 0.58 ug/mIFEU (0-0.59)
[2020-07-04 22:25] LABS: Troponin 5 6HR Delta -2.65 ng/L (0-12)
[2020-07-04] MEDS: metoprolol tartrate 25 mg Tablet PO (22:55)
[2020-07-04] MEDS: apixaban 5 mg Tablet PO (22:55)
[2020-07-04] MEDS: gabapentin 300 mg Capsule PO (22:55)
[2020-07-05] VITALS (8 sets, daily range): BP systolic 129–162; BP diastolic 57–110; PULSE 77–97; RESP 15–18; TEMP 36.8; O2SAT 92–99
[2020-07-05 03:39] LABS: Basophils % 0.4 %; Eosinophils # 0.2 10^3/uL (0.0-0.8); Eosinophils % 2.2 %; Hematocrit 31.7 % (37.0-47.0); Hemoglobin 9.3 g/dL (11.5-15.3); Lymphocytes # 0.8 10^3/uL (0.8-4.8); Lymphocytes % 8.3 %; Mean Corpuscular HGB Conc 29.3 g/dL (30.0-36.0); Mean Corpuscular Hemoglobin 24.8 pg (28.0-34.0); Mean Corpuscular Volume 84.5 fL (81-99); Mean Platelet Volume 11.5 fL (7.4-10.4); Monocytes # 0.5 10^3/uL (0.2-0.9); Monocytes % 5.4 %; Neutrophils % 83.3 %; Nucleated Red Blood Cells % 0 %; Platelet Count 224 10^3/cmm (130-400); Red Blood Count 3.75 10^6/uL (4.1-5.3); Red Cell Distribution Width 18.6 % (12.1-15.1); White Blood Count 9.9 10^3/uL (4.0-10.0)
[2020-07-05 04:05] LABS: Alanine Aminotransferase 13 U/L (0-33); Albumin Level 3.4 g/dL (3.5-5.2); Alkaline Phosphatase 102 IU/L (35-105); Anion Gap 12.5 (5-19); Aspartate Amino Transferase 8 U/L (0-32); Blood Urea Nitrogen 14 mg/dL (6-20); Calcium 8.8 mg/dL (8.5-10.5); Carbon Dioxide 32 mmol/L (22-29); Chloride 95 mmol/L (98-107); Globulin 3.2 g/dL (1.3-4.6); Glomerular Filtration Rate 31.2 mL/min (90-130); Glucose 334 mg/dL (65-115); Osmolality Calculated 296 mOsm/kg (285-295); Potassium 3.5 mmol/L (3.5-5.1); Sodium 136 mmol/L (136-145); Total Bilirubin 1.9 mg/dL (0.15-1.2); Total Protein 6.6 g/dL (6.6-8.7)
[2020-07-05] MEDS: buPROPion SR (12 HR) 100 mg Tablet 200 MG PO (05:51)
[2020-07-05] MEDS: ARIPiprazole 10 mg Tablet 5 MG PO (05:51)
[2020-07-05] MEDS: levothyroxine 25 mcg Tablet PO (05:51)
[2020-07-05] MEDS: sertraline 100 mg Tablet PO (05:51)
[2020-07-05] MEDS: FUROsemide 10 mg/mL SDV 10mL 60 MG IVP ×2 (05:51→15:43)
[2020-07-05] MEDS: insulin glargine 100 units/1 mL 10 UNIT SUBCUT (08:38)
[2020-07-05] MEDS: pantoprazole DR 40 mg Tablet PO (08:44)
[2020-07-05] MEDS: gabapentin 300 mg Capsule PO ×3 (08:44→21:47)
--- NOTE | 2020-07-05 09:50 | PM.PN ---
Subjective Subjective: Interval history: She feels she is breathing a little bit easier this morning. She is hungry, request for breakfast tray which she says asked for before 7 AM. She got breakfast tray shortly after my visit. She had no chest pain or pressure. Vitals/I&O/Wt Last Vital Signs Temp 99.7 F H 07/04/20 14:42 Pulse 81 07/05/20 09:35 Resp 18 07/05/20 03:43 BP 154/87 07/05/20 03:43 Pulse Ox 98 07/05/20 09:35 Weight last 48 hrs Weight 181.437 kg Physical Exam Const: COMMON NORMALS: no acute distress and patient oriented x3 NUTRITIONAL APPEARANCE: obese morbidly obese HENMT: COMMON NORMALS: oropharynx normal Neck/C-Spine: COMMON NORMALS: no JVD Resp: COMMON NORMALS: normal respiratory effort AUSCULTATION: diminished lung sounds Cardio: COMMON NORMALS: no JVD, regular rhythm, S1 normal heart sound present, S2 normal heart sound present and No murmurs present (Cardio) RHYTHM: regular rhythm HEART SOUNDS: S1 normal heart sound present and S2 normal heart sound present GI: COMMON NORMALS: Normal to inspection, nondistended, normoactive bowel sounds present, Soft to palpation and non-tender PALPATION: Yes Soft to palpation Extremity: COMMON NORMALS: no pedal edema GENERAL: Yes edema (2+ LE, pannus) Neuro: COMMON NORMALS: patient oriented x3 and moves all extremities Skin: COMMON NORMALS: no rashes or lesions noted GENERAL SKIN EXAM: no rashes or lesions noted OTHER: Some chronic stasis changes, mild erythema of lower left leg above the ankle. Chronic stasis changes on the pannus. Urinary Catheter Management^: Casiano: Cath Placed During This Visit: yes Reason for Continuing Indwelling Catheter: Other Urinary Catheter Date of Insertion: 07/04/20 Urinary Catheter Time of Insertion: 15:40 Data : 07/05/20 03:19 07/05/20 03:19 A&P Assessment and plan (1) Congestive heart failure: Continue Lasix. Unfortunately had to board overnight in ER due to lack of beds. I&O not recorded. Subjectively she is feeling a bit better. Continue diuresis. Monitor I&O. Weight. Hypoxia little bit better today, down to requirement of 5 L of oxygen. At discharge during last admission appears was down to 3 L. Acute diastolic CHF exacerbation. Hypoxic respiratory failure on presentation. DDimer normal. Has not taken Lasix since last discharge. Also has sleep apnea, not using CPAP, awaiting sleep study. Last admission TTE with contrast, poor quality study, but appears ejection fraction around 60%, no very significant valvular abnormality. Lasix 60 mg IV twice daily. Monitor renal function. Volume status. Status: Acute (2) Hypertension: Hypertension although better. Continue metoprolol. Lasix IV. Cardiac diet. Monitor blood pressures. Status: Acute (3) Morbid obesity with BMI of 60.0-69.9, adult: Status: Chronic (4) Atrial fibrillation: A. fib with RVR during previous admission. Continue metoprolol. Continue Eliquis. Status: Acute Qualifiers: Atrial fibrillation type: longstanding persistent Qualified Code(s): I48.11 - Longstanding persistent atrial fibrillation (5) DELMIS (obstructive sleep apnea): States she has not been using CPAP as she needs a new sleep study. She says she is scheduled for sleep study in August. Status: Chronic (6) Diabetes mellitus type 2, noninsulin dependent: Status: Chronic (7) Chronic kidney disease, stage III (moderate): Status: Acute Additional A&P Information Mild leukocytosis: Resolved. This time does not appear to have pneumonia or pulmonary infection. Has mild dry cough. Monitor. Mild erythema of left lower extremity. She reports chronic. Monitor. Mild troponin elevation: Without peak. Appears comparable to her prior admission. No chest pain apart from some pleuritic discomfort at presentation. Monitor symptoms. Unfortunately not tolerated attempted stress test previously. Echocardiogram very difficult to interpret. Would have her follow-up with cardiology in office after discharge. Attestations Medical Necessity Statement*: Continue admission for assessment management of CHF exacerbation, hypoxia. Coding Level of Care Code Acute Foundation Engineer for [facility] Fwd Diagnoses Congestive heart failure I50.9 Hypertension I10 Morbid obesity with BMI of 60.0-69.9, adult E66.01; Z68.44 Atrial fibrillation I48.11 Atrial fibrillation type: longstanding persistent DELMIS (obstructive sleep apnea) G47.33 Diabetes mellitus type 2, noninsulin dependent E11.9 Chronic kidney disease, stage III (moderate) N18.3
[2020-07-05] MEDS: apixaban 5 mg Tablet PO ×2 (10:05→21:47)
[2020-07-05] MEDS: metoprolol tartrate 25 mg Tablet PO ×2 (10:05→21:47)
--- NOTE | 2020-07-05 20:43 | PC.NURSE ---
PT RESTING IN BED. PT DENIES PAIN. WILL CONTINUE TO MONITOR.
[2020-07-06] VITALS (7 sets, daily range): BP systolic 93–154; BP diastolic 49–87; PULSE 77–98; RESP 15–23; TEMP 36.6–37.1; O2SAT 95–99
[2020-07-06 04:28] LABS: Basophils % 0.3 %; Eosinophils # 0.4 10^3/uL (0.0-0.8); Eosinophils % 3.4 %; Hematocrit 37.6 % (37.0-47.0); Hemoglobin 10.7 g/dL (11.5-15.3); Lymphocytes % 9.2 %; Mean Corpuscular HGB Conc 28.5 g/dL (30.0-36.0); Mean Corpuscular Hemoglobin 24.8 pg (28.0-34.0); Mean Corpuscular Volume 87.2 fL (81-99); Mean Platelet Volume 11.5 fL (7.4-10.4); Monocytes # 0.6 10^3/uL (0.2-0.9); Monocytes % 5.3 %; Neutrophils # 8.94 10^3/uL (1.8-7.7); Neutrophils % 81.2 %; Nucleated Red Blood Cells % 0 %; Platelet Count 245 10^3/cmm (130-400); Red Blood Count 4.31 10^6/uL (4.1-5.3); Red Cell Distribution Width 18.6 % (12.1-15.1)
[2020-07-06] MEDS: FUROsemide 10 mg/mL SDV 10mL 60 MG IVP (04:51)
[2020-07-06 04:52] LABS: Alanine Aminotransferase 12 U/L (0-33); Albumin Level 3.2 g/dL (3.5-5.2); Alkaline Phosphatase 107 IU/L (35-105); Blood Urea Nitrogen 21 mg/dL (6-20); Calcium 8.6 mg/dL (8.5-10.5); Carbon Dioxide 32 mmol/L (22-29); Chloride 91 mmol/L (98-107); Globulin 3.4 g/dL (1.3-4.6); Glomerular Filtration Rate 29.2 mL/min (90-130); Glucose 295 mg/dL (65-115); Osmolality Calculated 294 mOsm/kg (285-295); Sodium 135 mmol/L (136-145); Total Bilirubin 1.8 mg/dL (0.15-1.2); Total Protein 6.6 g/dL (6.6-8.7)
[2020-07-06 04:55] LABS: Anion Gap 15.5 (5-19); Aspartate Amino Transferase 10 U/L (0-32); Potassium 3.5 mmol/L (3.5-5.1)
[2020-07-06] MEDS: buPROPion SR (12 HR) 100 mg Tablet 200 MG PO (05:07)
[2020-07-06] MEDS: levothyroxine 25 mcg Tablet PO (05:07)
[2020-07-06] MEDS: ARIPiprazole 10 mg Tablet 5 MG PO (05:07)
[2020-07-06] MEDS: sertraline 100 mg Tablet PO (05:07)
--- NOTE | 2020-07-06 06:19 | PC.NURSE ---
PT HAD AN UNEVENTFUL NIGHT. PT DENIES PAIN. WILL CONTINUE TO MONITOR.
--- NOTE | 2020-07-06 06:30 | PC.NURSE ---
BED WAS ZEROED OUT WITH PT IN THE BED. PT DOESN'T WANT TO GET OUT OF BED AT THIS TIME. UNABLE TO OBTAIN WEIGHT.
[2020-07-06] MEDS: apixaban 5 mg Tablet PO ×2 (09:18→21:20)
[2020-07-06] MEDS: metoprolol tartrate 25 mg Tablet PO (09:19)
[2020-07-06] MEDS: gabapentin 300 mg Capsule PO ×3 (09:19→21:20)
[2020-07-06] MEDS: pantoprazole DR 40 mg Tablet PO (09:19)
[2020-07-06] MEDS: insulin glargine 100 units/1 mL 10 UNIT SUBCUT (09:20)
--- NOTE | 2020-07-06 19:35 | PC.NURSE ---
PT STATES THAT THEY FEEL SO MUCH BETTER, THAT THEY CAN BREATHE AGAIN. PT HAD 800ML IN TRAVIS. PT DENIES PAIN. PT BP 78/48. DR BROOKS WAS NOTIFIED. WILL CONTINUE TO MONITOR.
--- NOTE | 2020-07-06 22:18 | PM.PN ---
Subjective Subjective: Interval history: She states she is improving. Breathing is feeling better, although not at baseline. She still worried about how she is going to get around at home with still getting short of breath easily, and with her morbid obesity her would not be able to assist her. Vitals/I&O/Wt Last Vital Signs Temp 98.5 F 07/06/20 19:00 Pulse 98 07/06/20 19:00 Resp 16 07/06/20 19:00 BP 119/49 07/06/20 19:00 Pulse Ox 97 07/06/20 19:00 07/06/20 07/06/20 07/06/20 06:59 14:59 22:59 Intake Total 220 / 700 960 / 960 720 / 1680 Output Total 2000 / 7150 760 / 760 800 / 1560 Balance -1780 / -6450 200 / 200 -80 / 120 Physical Exam Const: COMMON NORMALS: no acute distress and patient oriented x3 NUTRITIONAL APPEARANCE: obese morbidly obese HENMT: COMMON NORMALS: oropharynx normal Neck/C-Spine: COMMON NORMALS: no JVD Resp: COMMON NORMALS: normal respiratory effort AUSCULTATION: diminished lung sounds Cardio: COMMON NORMALS: no JVD, regular rhythm, S1 normal heart sound present, S2 normal heart sound present and No murmurs present (Cardio) RHYTHM: regular rhythm HEART SOUNDS: S1 normal heart sound present and S2 normal heart sound present GI: COMMON NORMALS: Normal to inspection, nondistended, normoactive bowel sounds present, Soft to palpation and non-tender PALPATION: Yes Soft to palpation Extremity: COMMON NORMALS: no pedal edema GENERAL: Yes edema (2+ LE, pannus) Neuro: COMMON NORMALS: patient oriented x3 and moves all extremities Skin: COMMON NORMALS: no rashes or lesions noted GENERAL SKIN EXAM: no rashes or lesions noted OTHER: Some chronic stasis changes, mild erythema of lower left leg above the ankle. Chronic stasis changes on the pannus. Urinary Catheter Management^: Casiano: Cath Placed During This Visit: yes Reason for Continuing Indwelling Catheter: Accurate Measurement of Urinary Output in Critically Ill Patients Urinary Catheter Date of Insertion: 07/04/20 Urinary Catheter Time of Insertion: 15:40 Data : 07/06/20 03:17 07/06/20 03:17 A&P Assessment and plan (1) Congestive heart failure: Gradually improving. In negative balance, diuresing well, although today renal function is somewhat worse. Held further diuresis on discussion with her. Giving a dose of albumin. Reassess renal function, volume status tomorrow. She is concerned about returning home just yet, she is improving, but breathing is not back to baseline yet. She is worried about how she is going to mobilize at home with only her are done appropriate. She is agreeable to PT assessment. Hypoxia is improving. Oxygen requirement is decreasing, and currently appears to be down to 3 L. She appears to be approaching baseline of where she was during prior discharge. If fluid overload does not worsen, she continues to improve, able to mobilize with PT, perhaps may be able to return home within 1-2 days. Acute diastolic CHF exacerbation. Hypoxic respiratory failure on presentation. DDimer normal. Has not taken Lasix since last discharge. Also has sleep apnea, not using CPAP, awaiting sleep study. Last admission TTE with contrast, poor quality study, but appears ejection fraction around 60%, no very significant valvular abnormality. Status: Acute (2) Hypertension: Hypertension better. Continue metoprolol. Lasix IV. Cardiac diet. Monitor blood pressures. Status: Acute (3) Morbid obesity with BMI of 60.0-69.9, adult: Status: Chronic (4) Atrial fibrillation: A. fib with RVR during previous admission. Continue metoprolol. Continue Eliquis. Status: Acute Qualifiers: Atrial fibrillation type: longstanding persistent Qualified Code(s): I48.11 - Longstanding persistent atrial fibrillation (5) DELMIS (obstructive sleep apnea): States she has not been using CPAP as she needs a new sleep study. She says she is scheduled for sleep study in August. Status: Chronic (6) Diabetes mellitus type 2, noninsulin dependent: Status: Chronic (7) Chronic kidney disease, stage III (moderate): Acute kidney injury on chronic kidney disease, creatinine up to 1.8. For now hold off additional diuresis. Give albumin. Reassess. Status: Acute Additional A&P Information Mild leukocytosis: Resolved. This time does not appear to have pneumonia or pulmonary infection. Has mild dry cough. Monitor. Mild erythema of left lower extremity. She reports chronic. Monitor. Mild troponin elevation: Without peak. Appears comparable to her prior admission. No chest pain apart from some pleuritic discomfort at presentation. Monitor symptoms. Unfortunately not tolerated attempted stress test previously. Echocardiogram very difficult to interpret. Would have her follow-up with cardiology in office after discharge. Attestations Medical Necessity Statement*: Continue admission for assessment management of CHF exacerbation, with worsening of renal function, improving acute on chronic hypoxia. Coding Level of Care Code Acute Rust Proofer for [facility] Fwd Diagnoses Congestive heart failure I50.9 Hypertension I10 Morbid obesity with BMI of 60.0-69.9, adult E66.01; Z68.44 Atrial fibrillation I48.11 Atrial fibrillation type: longstanding persistent DELMIS (obstructive sleep apnea) G47.33 Diabetes mellitus type 2, noninsulin dependent E11.9 Chronic kidney disease, stage III (moderate) N18.3
[2020-07-07] VITALS (8 sets, daily range): BP systolic 110–168; BP diastolic 58–76; PULSE 83–100; RESP 14–22; TEMP 36.5–37; O2SAT 94–98
--- NOTE | 2020-07-07 04:08 | PC.NURSE ---
DR BROOKS WANTED ANTIHYPERTENSIVE HELD D/T LOW BP. LOPRESSOR HELD. PT RESTING IN BED. PT DENIES PAIN AT THIS TIME. WILL CONTINUE TO MONITOR.
[2020-07-07 04:45] LABS: Basophils % 0.3 %; Eosinophils # 0.3 10^3/uL (0.0-0.8); Eosinophils % 3.1 %; Hematocrit 36.4 % (37.0-47.0); Hemoglobin 10.5 g/dL (11.5-15.3); Mean Corpuscular HGB Conc 28.8 g/dL (30.0-36.0); Mean Corpuscular Hemoglobin 24.9 pg (28.0-34.0); Mean Corpuscular Volume 86.3 fL (81-99); Mean Platelet Volume 11.1 fL (7.4-10.4); Monocytes # 0.5 10^3/uL (0.2-0.9); Monocytes % 5.1 %; Neutrophils # 8.37 10^3/uL (1.8-7.7); Neutrophils % 81.1 %; Nucleated Red Blood Cells % 0 %; Platelet Count 245 10^3/cmm (130-400); Red Blood Count 4.22 10^6/uL (4.1-5.3); Red Cell Distribution Width 18.7 % (12.1-15.1); White Blood Count 10.3 10^3/uL (4.0-10.0)
[2020-07-07 05:03] LABS: Alanine Aminotransferase 7 U/L (0-33); Albumin Level 3.8 g/dL (3.5-5.2); Alkaline Phosphatase 91 IU/L (35-105); Anion Gap 15.3 (5-19); Aspartate Amino Transferase 6 U/L (0-32); Blood Urea Nitrogen 28 mg/dL (6-20); Calcium 8.4 mg/dL (8.5-10.5); Carbon Dioxide 33 mmol/L (22-29); Chloride 91 mmol/L (98-107); Globulin 2.8 g/dL (1.3-4.6); Glucose 331 mg/dL (65-115); Osmolality Calculated 300 mOsm/kg (285-295); Potassium 3.3 mmol/L (3.5-5.1); Sodium 136 mmol/L (136-145); Total Bilirubin 1.4 mg/dL (0.15-1.2); Total Protein 6.6 g/dL (6.6-8.7)
[2020-07-07] MEDS: levothyroxine 25 mcg Tablet PO (05:39)
[2020-07-07] MEDS: sertraline 100 mg Tablet PO (05:39)
[2020-07-07] MEDS: buPROPion SR (12 HR) 100 mg Tablet 200 MG PO (05:39)
[2020-07-07] MEDS: ARIPiprazole 10 mg Tablet 5 MG PO (05:39)
[2020-07-07] MEDS: apixaban 5 mg Tablet PO ×2 (09:37→21:34)
[2020-07-07] MEDS: gabapentin 300 mg Capsule PO ×3 (09:37→21:33)
[2020-07-07] MEDS: metoprolol tartrate 25 mg Tablet PO ×2 (09:37→21:33)
[2020-07-07] MEDS: insulin glargine 100 units/1 mL 10 UNIT SUBCUT (09:37)
[2020-07-07] MEDS: pantoprazole DR 40 mg Tablet PO (09:37)
--- NOTE | 2020-07-07 14:03 | PM.PN ---
Subjective Subjective: Interval history: No new complaints, working with PT, creatinine trending up today. Urine output 2.1 L over the last 24 hours. Medications: Reviewed: Yes Vitals/I&O/Wt Last Vital Signs Temp 98.6 F 07/07/20 11:00 Pulse 96 07/07/20 11:00 Resp 18 07/07/20 11:00 BP 122/58 07/07/20 11:00 Pulse Ox 95 07/07/20 11:00 07/06/20 07/07/20 07/07/20 22:59 06:59 14:59 Intake Total 720 / 1680 600 / 600 Output Total 800 / 1560 1300 / 2860 Balance -80 / 120 -1300 / -1180 600 / 600 Physical Exam Narrative: EXAM NARRATIVE: GEN: Awake, alert and oriented, no acute distress CVS: S1S2 N RS: CTA B/L Abd: Soft, nt/nd , bs+ DIRECTOR OF KIDS: no focal neuro deficits Urinary Catheter Management^: Casiano: Cath Placed During This Visit: yes Reason for Continuing Indwelling Catheter: Accurate Measurement of Urinary Output in Critically Ill Patients Urinary Catheter Date of Insertion: 07/04/20 Urinary Catheter Time of Insertion: 15:40 Data : 07/08/20 02:49 07/08/20 02:49 A&P Assessment and plan (1) Congestive heart failure: Gradually improving. In negative balance, diuresing well, although today renal function is somewhat worse. Held further diuresis on discussion with her. Giving a dose of albumin. Reassess renal function, volume status tomorrow. She is concerned about returning home just yet, she is improving, but breathing is not back to baseline yet. She is worried about how she is going to mobilize at home with only her are done appropriate. She is agreeable to PT assessment. Hypoxia is improving. Oxygen requirement is decreasing, and currently appears to be down to 3 L. She appears to be approaching baseline of where she was during prior discharge. If fluid overload does not worsen, she continues to improve, able to mobilize with PT, perhaps may be able to return home within 1-2 days. Acute diastolic CHF exacerbation. Hypoxic respiratory failure on presentation. DDimer normal. Has not taken Lasix since last discharge. Also has sleep apnea, not using CPAP, awaiting sleep study. Last admission TTE with contrast, poor quality study, but appears ejection fraction around 60%, no very significant valvular abnormality. Status: Acute (2) Hypertension: Hypertension better. Continue metoprolol. Lasix IV. Cardiac diet. Monitor blood pressures. Status: Acute (3) Morbid obesity with BMI of 60.0-69.9, adult: Status: Chronic (4) Atrial fibrillation: A. fib with RVR during previous admission. Continue metoprolol. Continue Eliquis. Status: Acute Qualifiers: Atrial fibrillation type: longstanding persistent Qualified Code(s): I48.11 - Longstanding persistent atrial fibrillation (5) DELMIS (obstructive sleep apnea): States she has not been using CPAP as she needs a new sleep study. She says she is scheduled for sleep study in August. Status: Chronic (6) Diabetes mellitus type 2, noninsulin dependent: Status: Chronic (7) Chronic kidney disease, stage III (moderate): Acute kidney injury on chronic kidney disease, creatinine up to 2.2, however with good urine output. For now hold off additional diuresis. Give albumin. Reassess. Status: Acute Additional A&P Information Mild leukocytosis: Resolved. This time does not appear to have pneumonia or pulmonary infection. Has mild dry cough. Monitor. Mild erythema of left lower extremity. She reports chronic. Monitor. Mild troponin elevation: Without peak. Appears comparable to her prior admission. No chest pain apart from some pleuritic discomfort at presentation. Monitor symptoms. Unfortunately not tolerated attempted stress test previously. Echocardiogram very difficult to interpret. Would have her follow-up with cardiology in office after discharge. 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
--- NOTE | 2020-07-07 16:45 | PC.SOCIAL ---
IMM Page 2 of IMM explained to patient. Initialed, dated, and timed and placed in chart. Copy provided to patient.
--- NOTE | 2020-07-07 20:36 | PC.NURSE ---
PT RESTING IN BED. PT HAS 0 C/O AT THIS TIME. PT DENIES PAIN. WILL CONTINUE TO MONITOR.
[2020-07-08 01:20] VITALS: PULSE 91; O2SAT 96
[2020-07-08 03:00] VITALS: BP 123/75; PULSE 79; RESP 16; TEMP 36.8; O2SAT 97
[2020-07-08 03:10] LABS: Basophils % 0.4 %; Eosinophils # 0.3 10^3/uL (0.0-0.8); Eosinophils % 2.7 %; Hematocrit 36.1 % (37.0-47.0); Hemoglobin 9.8 g/dL (11.5-15.3); Lymphocytes # 0.9 10^3/uL (0.8-4.8); Lymphocytes % 8.2 %; Mean Corpuscular HGB Conc 27.1 g/dL (30.0-36.0); Mean Corpuscular Hemoglobin 24.7 pg (28.0-34.0); Mean Corpuscular Volume 90.9 fL (81-99); Mean Platelet Volume 11.3 fL (7.4-10.4); Monocytes # 0.5 10^3/uL (0.2-0.9); Monocytes % 4.4 %; Neutrophils # 8.67 10^3/uL (1.8-7.7); Neutrophils % 83.9 %; Nucleated Red Blood Cells % 0 %; Platelet Count 232 10^3/cmm (130-400); Red Blood Count 3.97 10^6/uL (4.1-5.3); Red Cell Distribution Width 18.5 % (12.1-15.1); White Blood Count 10.3 10^3/uL (4.0-10.0)
[2020-07-08 03:42] LABS: Alanine Aminotransferase 9 U/L (0-33); Albumin Level 3.2 g/dL (3.5-5.2); Alkaline Phosphatase 94 IU/L (35-105); Anion Gap 14.7 (5-19); Aspartate Amino Transferase 9 U/L (0-32); Blood Urea Nitrogen 31 mg/dL (6-20); Calcium 8.5 mg/dL (8.5-10.5); Carbon Dioxide 28 mmol/L (22-29); Chloride 92 mmol/L (98-107); Globulin 3.3 g/dL (1.3-4.6); Glomerular Filtration Rate 29.2 mL/min (90-130); Osmolality Calculated 305 mOsm/kg (285-295); Potassium 3.7 mmol/L (3.5-5.1); Sodium 131 mmol/L (136-145); Total Bilirubin 1.3 mg/dL (0.15-1.2); Total Protein 6.5 g/dL (6.6-8.7)
[2020-07-08 03:56] LABS: Glucose 581 mg/dL (65-115)
--- NOTE | 2020-07-08 03:57 | PC.NURSE ---
PT GLUCOSE WAS 581. DR BROOKS NOTIFIED.
[2020-07-08] MEDS: ARIPiprazole 10 mg Tablet 5 MG PO (05:35)
[2020-07-08] MEDS: buPROPion SR (12 HR) 100 mg Tablet 200 MG PO (05:35)
[2020-07-08] MEDS: sertraline 100 mg Tablet PO (05:35)
[2020-07-08] MEDS: levothyroxine 25 mcg Tablet PO (05:35)
[2020-07-08 05:42] VITALS: BMI 58.2
--- NOTE | 2020-07-08 05:43 | PC.NURSE ---
PT HAD AN UNEVENTFUL NIGHT. PT DENIES PAIN. PT BLOOD SUGAR WAS 581. DR BROOKS ORDERED 20U OF NOVOLOG. WILL CONTINUE TO MONITOR.
[2020-07-08 07:00] VITALS: BP 118/65; PULSE 91; RESP 20; TEMP 36.4
--- NOTE | 2020-07-08 07:03 | PM.DCS ---
Discharge Providers Date of Admission: 07/04/20 17:32 Date of Discharge: July 08, 2020 Attending Provider at Admission: Curtis Echols Attending Provider at Discharge: Alisa Metzger MD Primary Care Provider: Mervat Nguyen Diagnoses at Discharge Discharge Diagnosis (1) Congestive heart failure: Status: Acute (2) Hypertension: Status: Acute (3) Morbid obesity with BMI of 60.0-69.9, adult: Status: Chronic (4) Atrial fibrillation: Status: Acute Qualifiers: Atrial fibrillation type: longstanding persistent Qualified Code(s): I48.11 - Longstanding persistent atrial fibrillation (5) DELMIS (obstructive sleep apnea): Status: Chronic (6) Diabetes mellitus type 2, noninsulin dependent: Status: Chronic (7) Chronic kidney disease, stage III (moderate): Status: Acute Permanent problem details: Cr has ranged 1.6-2.1 since 11/27 Reason for Visit Reason for Visit: SOB Hospital Course Hospital Course 55-year-old lady after recent hospitalization and discharged on 06/26 at which time was treated for A. fib with RVR, assess for syncopal episodes due to which her Lasix were discontinued on discharge returned to the hospital on 07/04 due to shortness of breath. Chest x-ray shows morphology of CHF. Troponin noted minimally elevated at 31. At 2 hours it is 29.35. EKG with atrial fibrillation. Overall picture with that of CHF exacerbation likely secondary to Lasix remaining on hold recently. She was diuresed with IV Lasix with close monitoring of renal function. Hospital course was significant for development of DWIGHT with creatinine peaking at 2.3, however at the day of discharge it is trended back down to 1.8 with adequate urine output. She is being discharged with advised to continue Lasix upon discharge at 60 mg p.o. twice daily and to follow-up with her primary care provider within the next 7 to 10 days and cardiology on 07/17/19. Recent TTE and showed ejection fraction of around 60% without any significant valvular wall motion abnormality. Of note patient is also has a diagnosis of sleep apnea and is supposed to be on CPAP, however has not been using it of late as she needs a new sleep study. She states she is already scheduled for the same in August. She had mild leukocytosis upon admission which resolved, there were no gross signs of any pneumonia. She feels much improved on the day of discharge. She also developed herpes labialis over her upper lip noted on the day of discharge for which Valtrex was prescribed for 7 days. 2 refills have also been given to be used as a pill in pocket approach as patient reports an episode of herpes labialis once every 2 to 3 months. 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 Urinary Catheter Management^: Casiano: Cath Placed During This Visit: yes Reason for Continuing Indwelling Catheter: Accurate Measurement of Urinary Output in Critically Ill Patients Urinary Catheter Date of Insertion: 07/04/20 Urinary Catheter Time of Insertion: 15:40 Discharge Data Data Completed and Pending: Completed Studies During Hospitalization Category Date Time Status XR chest 1V shania ble [id number] Stat Exams 07/04/20 15:00 Completed Labs from last 24 hours 07/08/20 07/08/20 02:49 02:49 WBC 10.3 H RBC 3.97 L Hgb 9.8 L Hct 36.1 L MCV 90.9 D MCH 24.7 L MCHC 27.1 L D RDW 18.5 H Plt Count 232 MPV 11.3 H Neut % (Auto) 83.9 Lymph % (Auto) 8.2 [place] % (Auto) 4.4 Eos % (Auto) 2.7 Baso % (Auto) 0.4 Neut # (Auto) 8.67 H Lymph # (Auto) 0.9 [place] # (Auto) 0.5 Eos # (Auto) 0.3 Baso # (Auto) 0.0 Nucleated RBC % (a uto) 0 Nucleated RBCs # 0.0 Sodium 131 L Potassium 3.7 Chloride 92 L Carbon Dioxide 28 Anion Gap 14.7 BUN 31 H Creatinine 1.8 H GFR Calculation 29.2 L Glucose 581 H* Calculated Osmolal ity 305 H Calcium 8.5 Total Bilirubin 1.3 H AST 9 ALT 9 Alkaline Phosphata se 94 Total Protein 6.5 L Albumin 3.2 L Globulin 3.3 Vitals: Last Vital Signs Temp 98.3 F 07/08/20 03:00 Pulse 79 07/08/20 03:00 Resp 16 07/08/20 03:00 BP 123/75 07/08/20 03:00 Pulse Ox 97 07/08/20 03:00 Discharge Plan Discharge Patient Disposition: Home Condition: Stable Prescriptions: New Lasix 80 mg tablet 40 mg PO BID 14 Days Qty: 14 RF: 0 potassium chloride 10 mEq capsule, extended release 10 meq PO BID 14 Days Qty: 28 RF: 0 Valtrex 1 gram tablet 1,000 mg PO Q12H 7 Days Qty: 14 RF: 2 Continued gabapentin 300 mg capsule 300 mg PO TID RF: 0 pantoprazole 40 mg tablet,delayed release (DR/EC) 40 mg PO DAILY RF: 0 ondansetron HCl 4 mg tablet 4 mg PO Q6H PRN (Reason: Nausea And Vomiting) RF: 0 levothyroxine 25 mcg tablet 25 mcg PO QAM RF: 0 nystatin 100,000 unit/gram cream See Rx Instructions .ROUTE .COMPLEX RF: 0 Basaglar KwikPen U-100 Insulin 100 unit/mL (3 mL) insulin pen 10 unit SUBCUT DAILY RF: 0 diclofenac sodium 1 % Gel 4 g TOPICAL QID PRN (Reason: Pain) RF: 0 cranberry 500 mg Capsule See Rx Instructions .ROUTE .COMPLEX RF: 0 Breo Ellipta 100-25 mcg/dose Blister With Device 1 inh INHALATION Q24H RF: 0 Incruse Ellipta 62.5 mcg/actuation Blister With Device 1 inh INHALATION Q24H RF: 0 insulin aspart U-100 [Novolog U-100 Insulin aspart] 100 unit/mL Solution See Rx Instructions .ROUTE .COMPLEX RF: 0 sumatriptan succinate [Imitrex] 25 mg tablet 25 mg PO PRN RF: 0 sertraline [Zoloft] 100 mg tablet 100 mg PO QAM RF: 0 bupropion HCl [Wellbutrin SR] 200 mg tablet sustained-release 12 hr 200 mg PO QAM RF: 0 metoprolol tartrate 25 mg tablet 25 mg PO Q12H RF: 0 Eliquis 5 mg tablet 5 mg PO Q12H RF: 0 aripiprazole [Abilify] 5 mg tablet 5 mg PO QAM RF: 0 hydrocodone-acetaminophen 10-325 mg tablet 1 tab PO Q4H MDD 6 tabs PRN (Reason: Pain) Qty: 12 RF: 0 Discharge Orders: Discharge Order (Routine); Ordered 07/08/20 Ordered By: Alisa Metzger Other Ambulatory Orders: Comprehensive Metabolic Panel (Routine) Timeframe: 3 Days Facility: [facility] - Location: Lab - Main Lab Ordered By: Alisa Metzger Referrals: Mervat Nguyen [Primary Care Provider] - 07/16/20 11:20 am (You have a hospital followup with Mervat Nguyen at [facility] on July 16 at 11:20am) Renee Gutierrez MD [Physician] - 07/17/20 9:00 am (You have a cardiology followup with Dr. Gutierrez at [facility] on July 17 at 9:00am. ) Discharge Diet: Usual diet, Cardiac and Diabetic Discharge Activity: Resume usual activity Patient Instructions: Furosemide (By mouth), Potassium Chloride (By mouth), Valacyclovir (By mouth), Hypertension, Heart Failure (DC), CHF Stoplight Activity Restrictions/Additional Instructions: In 3 days. Please stop by the hospital to have blood work done. 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
--- NOTE | 2020-07-08 07:10 | PC.NURSE ---
patient resting in bed. assessment performed and charted. patient denied any needs at this time. call light and other needs within reach.
--- NOTE | 2020-07-08 09:00 | PC.NURSE ---
henley removed. balloon intact. educated patient on needing to void before discharge. patient verbalized an understanding.
[2020-07-08] MEDS: gabapentin 300 mg Capsule PO ×2 (09:28→14:52)
[2020-07-08] MEDS: insulin glargine 100 units/1 mL 10 UNIT SUBCUT (09:28)
[2020-07-08] MEDS: apixaban 5 mg Tablet PO (09:28)
[2020-07-08] MEDS: pantoprazole DR 40 mg Tablet PO (09:28)
[2020-07-08] MEDS: metoprolol tartrate 25 mg Tablet PO (09:28)
[2020-07-08 09:40] LABS: Glucose Point of Care 401 mg/dL (70-110)
[2020-07-08 11:35] LABS: Glucose Point of Care 365 mg/dL (70-110)
[2020-07-08 12:22] VITALS: BP 118/65; PULSE 91; RESP 20; O2SAT 94
[2020-07-08 12:27] VITALS: BP 118/65; PULSE 91; RESP 20; O2SAT 94
--- NOTE | 2020-07-08 13:00 | PC.NURSE ---
patient stated that she voided and had a bowel movement in the bedside commode. discharge instructions given. patient verbalized an understanding. new medications were sent to pharmacy of choice. iv removed tip intact. patient is just waiting on ride at this time.
--- NOTE | 2020-07-08 14:55 | PC.NURSE ---
transportation here to get patient. patient transferred to wheelchair. fuel oil truck driver took patient and oxygen to exit where fuel oil truck driver put patient in van to transport her home.
== END 2020-07-08 14:55 | disposition home or self-care (01) | DRG 291 ==
LOC: ER 17:43 → ER IP 07-05 09:05 → CSU 07-05 14:31
PROVIDERS: Admitting Provider Internal Medicine; Emergency Provider Family Medicine; PCP Internal Medicine; Visit Provider Student in an Organized Health Care Education/Training Program
DX: I13.0 Hypertensive heart and chronic kidney disease with heart failure and stage 1 through stage 4 chronic kidney disease, or unspecified chronic kidney disease (principal); I50.33 Acute on chronic diastolic (congestive) heart failure; J96.91 Respiratory failure, unspecified with hypoxia; I48.11 Longstanding persistent atrial fibrillation; F33.9 Major depressive disorder, recurrent, unspecified; Z68.44 Body mass index [BMI] 60.0-69.9, adult; N17.9 Acute kidney failure, unspecified; N18.30 Chronic kidney disease, stage 3 unspecified; E11.22 Type 2 diabetes mellitus with diabetic chronic kidney disease; J44.9 Chronic obstructive pulmonary disease, unspecified; F41.1 Generalized anxiety disorder; F42.3 Hoarding disorder; E03.9 Hypothyroidism, unspecified; E66.01 Morbid (severe) obesity due to excess calories; G47.33 Obstructive sleep apnea (adult) (pediatric); Z99.81 Dependence on supplemental oxygen; Z87.891 Personal history of nicotine dependence; Z91.19 Patient's noncompliance with other medical treatment and regimen; B00.1 Herpesviral vesicular dermatitis; I15.0 Renovascular hypertension; Z79.4 Long term (current) use of insulin; Z79.01 Long term (current) use of anticoagulants; Z79.891 Long term (current) use of opiate analgesic
CPT/HCPCS: 12345; 36415; 36416; 36600; 51702; 71045; 80051; 80053; 81001; 82248; 82330; 82805; 82962; 83605; 84484; 85025; 85378; 87426; 93005; 96372; 97110; 97161; 99284; J0360; J1815 ×2; J1940; P9047

== ENCOUNTER → 2020-07-23 07:54 | Outpatient (BNVA) | payer MEDICARE, MEDICAID, SELFPAY | PROVIDERS: PCP Internal Medicine; Visit Provider Nurse Practitioner Psychiatric/Mental Health | DX: F41.1 Generalized anxiety disorder (principal); E11.9 Type 2 diabetes mellitus without complications; E66.01 Morbid (severe) obesity due to excess calories; Z68.44 Body mass index [BMI] 60.0-69.9, adult; F33.2 Major depressive disorder, recurrent severe without psychotic features; F42.3 Hoarding disorder | CPT/HCPCS: 99213 ==

== ENCOUNTER 2020-07-31 17:01 | Inpatient (IN) | payer MEDICARE, MEDICAID, SELFPAY ==
[2020-07-31] VITALS (17 sets, daily range): BP systolic 109–143; BP diastolic 66–112; PULSE 95–131; RESP 13–26; TEMP 36.1–36.7; O2SAT 95–100; BMI 59.1
--- NOTE | 2020-07-31 17:14 | PC.NURSE ---
Patient blood glucose read as HI, doctor and charge nurse are aware.
[2020-07-31 17:15] LABS: Glucose Point of Care > 600 mg/dL (70-110)
--- NOTE | 2020-07-31 17:19 | ECG_ITS ---
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 Measurements Intervals Burke Rate: 104 P: MT: QRS: 118 QRSD: 92 T: 10 QT: 343 QTc: 453 Interpretive Statements ATRIAL FIBRILLATION WITH RAPID VENTRICULAR RESPONSE POSSIBLE RIGHT VENTRICULAR HYPERTROPHY [SOME/ALL OF: PROMINENT R IN V1, LATE TRANSITION, RAD, [place], SSS] POSSIBLE ANTERIOR MYOCARDIAL INFARCTION , PROBABLY OLD [30 ms Q WAVE IN V3/V4, OR R < 0.2 mV IN V4] PROBABLE INFERIOR MYOCARDIAL INFARCTION , PROBABLY OLD [35 ms Q WAVE IN II/aVF] Compared to ECG 07/04/2020 21:31:44 Myocardial infarct finding now present ST (T wave) deviation no longer present Electronically Signed On 07-31-2020 18:00:47 [place] [employer] by Sathya Sellers M.D. [id number]
--- NOTE | 2020-07-31 17:20 | W.ED.GENADLT ---
Documented by User: Kyle Lockwood MD 12/03/20 06:10 HPI - General Adult General: Chief complaint: General Medical Stated complaint: BOIL UNDER BREAST, HYPERGLYCEMIA Time Seen by Provider: 07/31/20 17:04 History of Present Illness: HPI narrative: Patient is a 55-year-old female seen for redness, swelling, and pain under the left breast. It started 3 days ago and has gotten worse progressively. She describes it as burning, worse with palpation, better with rest. It is 10 of 10 at this time. She has had multiple Bartholin gland cyst in the past and multiple yeast infections under the breasts and under her pannus. She states that her sugars been running high since the infection started. She denies shortness of breath, chest pain, fever, headache, lightheadedness, dysuria, frequency, abdominal pain, nausea, vomiting. She has no other acute complaints. 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 Surgical History History of dental surgery Status post biopsy of skin Family History Other Chronic kidney disease (CKD) Diabetes Hypertension Thyroid disease Social History Smoking and tobacco status: former smoker Quit status (tobacco): has quit using tobacco Year quit tobacco: 2006 [id number] Second hand smoke exposure: No Smoking risk assessment/counseling performed?: Yes Alcohol intake: never Lives independently: Yes Household members: spouse Marital status: Marital status details: is wheelchair-bound, Current occupational status: disabled Pets and animals: Yes History of recent travel: No Current gender identity: Female Physical Exam Const: COMMON NORMALS: patient oriented x3 and alert GENERAL APPEARANCE: anxious ORIENTATION/CONSCIOUSNESS: Yes awake, Yes oriented to person, Yes oriented to place and Yes oriented to time HENMT: COMMON NORMALS: normocephalic and atraumatic HEAD & SCALP: normocephalic and atraumatic Eye: COMMON NORMALS: Equal, round and reactive pupils present, EOMs intact bilaterally and no scleral icterus PUPIL: Yes Equal, round and reactive pupils present Chest: OTHER: 4 cm diameter abscess on the inferior aspect of the left breast with minimal surrounding erythema concerning for cellulitis. Resp: COMMON NORMALS: normal respiratory effort and No retractions Cardio: COMMON NORMALS: regular rhythm and No murmurs present (Cardio) RATE: tachycardic RHYTHM: regular rhythm GI: COMMON NORMALS: Normal to inspection, nondistended, normoactive bowel sounds present, Soft to palpation and non-tender PALPATION: Yes Soft to palpation Neuro: COMMON NORMALS: patient oriented x3 SENSORIUM/ORIENTATION: Yes alert, Yes oriented to person, Yes oriented to place and Yes oriented to time Skin: COMMON NORMALS: no rashes or lesions noted GENERAL SKIN EXAM: no rashes or lesions noted Procedures Abscess I/D Site: chest Side (if applicable): left Sedation/analgesia: none Local Anesthetic: lidocaine 2% and with epi Technique: incised with #11 blade Amount of fluid expressed (mL): 10 Irrigation: Yes Packing used?: none Course Vital Signs: Vital signs: Vital Signs Temperature 98.0 F 08/07/20 15:45 Pulse Rate 80 08/07/20 15:45 Respiratory Rate 18 08/07/20 15:45 Blood Pressure 127/81 08/07/20 15:45 Pulse Oximetry 97 08/07/20 15:45 MDM - General Adult MDM Narrative: Medical decision making narrative: Patient arrived mildly tachycardic with sugar reading greater than 600. Labs were obtained to rule out DKA. Abscess was drained without incident. Pertinent details of the case were shared with the oncoming emergency physician who will help facilitate ultimate disposition once labs have returned. I suspect she will be safe for discharge. She will be written for short course of antibiotics given the surrounding redness concerning for cellulitis and her diabetic status. Lab Data: Labs: Lab Results 07/31/20 07/31/20 07/31/20 Range/Units 17:12 17:32 17:32 WBC 9.2 (4.0-10.0) 10^3/ uL RBC 4.89 (4.1-5.3) 10^6/u L Hgb 12.5 (11.5-15.3) g/dL Hct 42.1 (37.0-47.0) % MCV 86.1 (81-99) fL MCH 25.6 L (28.0-34.0) pg MCHC 29.7 L (30.0-36.0) g/dL RDW 17.9 H (12.1-15.1) % Plt Count 287 (130-400) 10^3/c mm MPV 12.9 H (7.4-10.4) fL Neut % (Auto) 81.4 % Lymph % (Auto) 10.7 % [place] % (Auto) 4.8 % Eos % (Auto) 2.0 % Baso % (Auto) 0.8 % Neut # (Auto) 7.50 (1.8-7.7) 10^3/u L Lymph # (Auto) 1.0 (0.8-4.8) 10^3/u L [place] # (Auto) 0.4 (0.2-0.9) 10^3/u L Eos # (Auto) 0.2 (0.0-0.8) 10^3/u L Baso # (Auto) 0.1 (0.0-0.1) 10^3/u L Nucleated RBC % (a uto) 0 % Nucleated RBCs # 0.0 /100WBC Sodium 113 L* (136-145) mmol/L Potassium 5.1 (3.5-5.1) mmol/L Chloride 77 L (98-107) mmol/L Carbon Dioxide 24 (22-29) mmol/L Anion Gap 17.1 (5-19) BUN 22 H (6-20) mg/dL Creatinine 2.0 H (0.5-0.9) mg/dL GFR Calculation 25.9 L (90-130) mL/min Glucose 1248 H* (65-115) mg/dL POC Glucose > 600 H* (70-110) mg/dL Estimat Average Gl ucose Hemoglobin A1c (4.0-6.0) % Calculated Osmolal ity 303 H (285-295) mOsm/k g Calcium 8.8 (8.5-10.5) mg/dL Magnesium (1.7-2.3) mg/dL Total Bilirubin 0.9 (0.15-1.2) mg/dL AST 6 (0-32) U/L ALT 8 (0-33) U/L Alkaline Phosphata se 140 H (35-105) IU/L Troponin T Gen 5 n g/L (0-10) ng/L C-Reactive Protein (0.0-4.9) mg/L Total Protein 7.3 (6.6-8.7) g/dL Albumin 3.7 (3.5-5.2) g/dL Globulin 3.6 (1.3-4.6) g/dL Lipase (13-60) U/L Urine Color (Yellow) Urine Appearance (CLEAR) Urine pH (5-7) Ur Specific Gravit y (1.005-1.030) Urine Protein (Negative) Urine Glucose (UA) (Normal) Urine Ketones (Negative) Urine Blood (Negative) Urine Nitrate (Negative) Urine Bilirubin (Negative) Urine Urobilinogen (Negative) mg/dL Ur Leukocyte [place] ase (Negative) Urine RBC (0-2) /hpf Urine WBC (0-5) /hpf Ur Squamous Epith Cells (0-5) /hpf Amorphous Sediment Urine Bacteria (NONE) /hpf Serum Ketones (Negative) 07/31/20 07/31/20 07/31/20 Range/Units 17:32 17:32 17:32 WBC (4.0-10.0) 10^3/ uL RBC (4.1-5.3) 10^6/u L Hgb (11.5-15.3) g/dL Hct (37.0-47.0) % MCV (81-99) fL MCH (28.0-34.0) pg MCHC (30.0-36.0) g/dL RDW (12.1-15.1) % Plt Count (130-400) 10^3/c mm MPV (7.4-10.4) fL Neut % (Auto) % Lymph % (Auto) % [place] % (Auto) % Eos % (Auto) % Baso % (Auto) % Neut # (Auto) (1.8-7.7) 10^3/u L Lymph # (Auto) (0.8-4.8) 10^3/u L [place] # (Auto) (0.2-0.9) 10^3/u L Eos # (Auto) (0.0-0.8) 10^3/u L Baso # (Auto) (0.0-0.1) 10^3/u L Nucleated RBC % (a uto) % Nucleated RBCs # /100WBC Sodium (136-145) mmol/L Potassium (3.5-5.1) mmol/L Chloride (98-107) mmol/L Carbon Dioxide (22-29) mmol/L Anion Gap (5-19) BUN (6-20) mg/dL Creatinine (0.5-0.9) mg/dL GFR Calculation (90-130) mL/min Glucose (65-115) mg/dL POC Glucose (70-110) mg/dL Estimat Average Gl ucose Hemoglobin A1c (4.0-6.0) % Calculated Osmolal ity (285-295) mOsm/k g Calcium (8.5-10.5) mg/dL Magnesium (1.7-2.3) mg/dL Total Bilirubin (0.15-1.2) mg/dL AST (0-32) U/L ALT (0-33) U/L Alkaline Phosphata se (35-105) IU/L Troponin T Gen 5 n g/L 32 H (0-10) ng/L C-Reactive Protein 25.2 H (0.0-4.9) mg/L Total Protein (6.6-8.7) g/dL Albumin (3.5-5.2) g/dL Globulin (1.3-4.6) g/dL Lipase 48 (13-60) U/L Urine Color (Yellow) Urine Appearance (CLEAR) Urine pH (5-7) Ur Specific Gravit y (1.005-1.030) Urine Protein (Negative) Urine Glucose (UA) (Normal) Urine Ketones (Negative) Urine Blood (Negative) Urine Nitrate (Negative) Urine Bilirubin (Negative) Urine Urobilinogen (Negative) mg/dL Ur Leukocyte [place] ase (Negative) Urine RBC (0-2) /hpf Urine WBC (0-5) /hpf Ur Squamous Epith Cells (0-5) /hpf Amorphous Sediment Urine Bacteria (NONE) /hpf Serum Ketones Negative (Negative) 07/31/20 07/31/20 07/31/20 Range/Units 17:32 20:37 22:26 WBC (4.0-10.0) 10^3/ uL RBC (4.1-5.3) 10^6/u L Hgb (11.5-15.3) g/dL Hct (37.0-47.0) % MCV (81-99) fL MCH (28.0-34.0) pg MCHC (30.0-36.0) g/dL RDW (12.1-15.1) % Plt Count (130-400) 10^3/c mm MPV (7.4-10.4) fL Neut % (Auto) % Lymph % (Auto) % [place] % (Auto) % Eos % (Auto) % Baso % (Auto) % Neut # (Auto) (1.8-7.7) 10^3/u L Lymph # (Auto) (0.8-4.8) 10^3/u L [place] # (Auto) (0.2-0.9) 10^3/u L Eos # (Auto) (0.0-0.8) 10^3/u L Baso # (Auto) (0.0-0.1) 10^3/u L Nucleated RBC % (a uto) % Nucleated RBCs # /100WBC Sodium (136-145) mmol/L Potassium (3.5-5.1) mmol/L Chloride (98-107) mmol/L Carbon Dioxide (22-29) mmol/L Anion Gap (5-19) BUN (6-20) mg/dL Creatinine (0.5-0.9) mg/dL GFR Calculation (90-130) mL/min Glucose (65-115) mg/dL POC Glucose > 600 H* > 600 H* (70-110) mg/dL Estimat Average Gl ucose 358 Hemoglobin A1c 14.1 H (4.0-6.0) % Calculated Osmolal ity (285-295) mOsm/k g Calcium (8.5-10.5) mg/dL Magnesium (1.7-2.3) mg/dL Total Bilirubin (0.15-1.2) mg/dL AST (0-32) U/L ALT (0-33) U/L Alkaline Phosphata se (35-105) IU/L Troponin T Gen 5 n g/L (0-10) ng/L C-Reactive Protein (0.0-4.9) mg/L Total Protein (6.6-8.7) g/dL Albumin (3.5-5.2) g/dL Globulin (1.3-4.6) g/dL Lipase (13-60) U/L Urine Color (Yellow) Urine Appearance (CLEAR) Urine pH (5-7) Ur Specific Gravit y (1.005-1.030) Urine Protein (Negative) Urine Glucose (UA) (Normal) Urine Ketones (Negative) Urine Blood (Negative) Urine Nitrate (Negative) Urine Bilirubin (Negative) Urine Urobilinogen (Negative) mg/dL Ur Leukocyte [place] ase (Negative) Urine RBC (0-2) /hpf Urine WBC (0-5) /hpf Ur Squamous Epith Cells (0-5) /hpf Amorphous Sediment Urine Bacteria (NONE) /hpf Serum Ketones (Negative) 07/31/20 08/01/20 08/01/20 Range/Units 23:26 00:22 01:30 WBC (4.0-10.0) 10^3/ uL RBC (4.1-5.3) 10^6/u L Hgb (11.5-15.3) g/dL Hct (37.0-47.0) % MCV (81-99) fL MCH (28.0-34.0) pg MCHC (30.0-36.0) g/dL RDW (12.1-15.1) % Plt Count (130-400) 10^3/c mm MPV (7.4-10.4) fL Neut % (Auto) % Lymph % (Auto) % [place] % (Auto) % Eos % (Auto) % Baso % (Auto) % Neut # (Auto) (1.8-7.7) 10^3/u L Lymph # (Auto) (0.8-4.8) 10^3/u L [place] # (Auto) (0.2-0.9) 10^3/u L Eos # (Auto) (0.0-0.8) 10^3/u L Baso # (Auto) (0.0-0.1) 10^3/u L Nucleated RBC % (a uto) % Nucleated RBCs # /100WBC Sodium (136-145) mmol/L Potassium (3.5-5.1) mmol/L Chloride (98-107) mmol/L Carbon Dioxide (22-29) mmol/L Anion Gap (5-19) BUN (6-20) mg/dL Creatinine (0.5-0.9) mg/dL GFR Calculation (90-130) mL/min Glucose (65-115) mg/dL POC Glucose 576 H* 464 H 333 H (70-110) mg/dL Estimat Average Gl ucose Hemoglobin A1c (4.0-6.0) % Calculated Osmolal ity (285-295) mOsm/k g Calcium (8.5-10.5) mg/dL Magnesium (1.7-2.3) mg/dL Total Bilirubin (0.15-1.2) mg/dL AST (0-32) U/L ALT (0-33) U/L Alkaline Phosphata se (35-105) IU/L Troponin T Gen 5 n g/L (0-10) ng/L C-Reactive Protein (0.0-4.9) mg/L Total Protein (6.6-8.7) g/dL Albumin (3.5-5.2) g/dL Globulin (1.3-4.6) g/dL Lipase (13-60) U/L Urine Color (Yellow) Urine Appearance (CLEAR) Urine pH (5-7) Ur Specific Gravit y (1.005-1.030) Urine Protein (Negative) Urine Glucose (UA) (Normal) Urine Ketones (Negative) Urine Blood (Negative) Urine Nitrate (Negative) Urine Bilirubin (Negative) Urine Urobilinogen (Negative) mg/dL Ur Leukocyte [place] ase (Negative) Urine RBC (0-2) /hpf Urine WBC (0-5) /hpf Ur Squamous Epith Cells (0-5) /hpf Amorphous Sediment Urine Bacteria (NONE) /hpf Serum Ketones (Negative) 08/01/20 08/01/20 08/01/20 Range/Units 02:18 02:52 02:52 WBC 14.6 H (4.0-10.0) 10^3/ uL RBC 5.25 (4.1-5.3) 10^6/u L Hgb 13.5 (11.5-15.3) g/dL Hct 41.8 (37.0-47.0) % MCV 79.6 L D (81-99) fL MCH 25.7 L (28.0-34.0) pg MCHC 32.3 D (30.0-36.0) g/dL RDW 17.5 H (12.1-15.1) % Plt Count 360 (130-400) 10^3/c mm MPV 12.1 H (7.4-10.4) fL Neut % (Auto) 77.9 % Lymph % (Auto) 11.3 % [place] % (Auto) 7.7 % Eos % (Auto) 2.0 % Baso % (Auto) 0.6 % Neut # (Auto) 11.39 H (1.8-7.7) 10^3/u L Lymph # (Auto) 1.7 (0.8-4.8) 10^3/u L [place] # (Auto) 1.1 H (0.2-0.9) 10^3/u L Eos # (Auto) 0.3 (0.0-0.8) 10^3/u L Baso # (Auto) 0.1 (0.0-0.1) 10^3/u L Nucleated RBC % (a uto) 0 % Nucleated RBCs # 0.0 /100WBC Sodium 128 L D (136-145) mmol/L Potassium 3.9 (3.5-5.1) mmol/L Chloride 89 L (98-107) mmol/L Carbon Dioxide 25 (22-29) mmol/L Anion Gap 17.9 (5-19) BUN 21 H (6-20) mg/dL Creatinine 1.8 H (0.5-0.9) mg/dL GFR Calculation 29.2 L (90-130) mL/min Glucose 249 H (65-115) mg/dL POC Glucose 244 H (70-110) mg/dL Estimat Average Gl ucose Hemoglobin A1c (4.0-6.0) % Calculated Osmolal ity 277 L (285-295) mOsm/k g Calcium 9.1 (8.5-10.5) mg/dL Magnesium (1.7-2.3) mg/dL Total Bilirubin (0.15-1.2) mg/dL AST (0-32) U/L ALT (0-33) U/L Alkaline Phosphata se (35-105) IU/L Troponin T Gen 5 n g/L (0-10) ng/L C-Reactive Protein (0.0-4.9) mg/L Total Protein (6.6-8.7) g/dL Albumin (3.5-5.2) g/dL Globulin (1.3-4.6) g/dL Lipase (13-60) U/L Urine Color (Yellow) Urine Appearance (CLEAR) Urine pH (5-7) Ur Specific Gravit y (1.005-1.030) Urine Protein (Negative) Urine Glucose (UA) (Normal) Urine Ketones (Negative) Urine Blood (Negative) Urine Nitrate (Negative) Urine Bilirubin (Negative) Urine Urobilinogen (Negative) mg/dL Ur Leukocyte [place] ase (Negative) Urine RBC (0-2) /hpf Urine WBC (0-5) /hpf Ur Squamous Epith Cells (0-5) /hpf Amorphous Sediment Urine Bacteria (NONE) /hpf Serum Ketones (Negative) 08/01/20 08/01/20 08/01/20 Range/Units 02:52 07:21 09:33 WBC (4.0-10.0) 10^3/ uL RBC (4.1-5.3) 10^6/u L Hgb (11.5-15.3) g/dL Hct (37.0-47.0) % MCV (81-99) fL MCH (28.0-34.0) pg MCHC (30.0-36.0) g/dL RDW (12.1-15.1) % Plt Count (130-400) 10^3/c mm MPV (7.4-10.4) fL Neut % (Auto) % Lymph % (Auto) % [place] % (Auto) % Eos % (Auto) % Baso % (Auto) % Neut # (Auto) (1.8-7.7) 10^3/u L Lymph # (Auto) (0.8-4.8) 10^3/u L [place] # (Auto) (0.2-0.9) 10^3/u L Eos # (Auto) (0.0-0.8) 10^3/u L Baso # (Auto) (0.0-0.1) 10^3/u L Nucleated RBC % (a uto) % Nucleated RBCs # /100WBC Sodium (136-145) mmol/L Potassium (3.5-5.1) mmol/L Chloride (98-107) mmol/L Carbon Dioxide (22-29) mmol/L Anion Gap (5-19) BUN (6-20) mg/dL Creatinine (0.5-0.9) mg/dL GFR Calculation (90-130) mL/min Glucose (65-115) mg/dL POC Glucose 524 H* 526 H* (70-110) mg/dL Estimat Average Gl ucose Hemoglobin A1c (4.0-6.0) % Calculated Osmolal ity (285-295) mOsm/k g Calcium (8.5-10.5) mg/dL Magnesium 2.2 (1.7-2.3) mg/dL Total Bilirubin (0.15-1.2) mg/dL AST (0-32) U/L ALT (0-33) U/L Alkaline Phosphata se (35-105) IU/L Troponin T Gen 5 n g/L (0-10) ng/L C-Reactive Protein (0.0-4.9) mg/L Total Protein (6.6-8.7) g/dL Albumin (3.5-5.2) g/dL Globulin (1.3-4.6) g/dL Lipase (13-60) U/L Urine Color (Yellow) Urine Appearance (CLEAR) Urine pH (5-7) Ur Specific Gravit y (1.005-1.030) Urine Protein (Negative) Urine Glucose (UA) (Normal) Urine Ketones (Negative) Urine Blood (Negative) Urine Nitrate (Negative) Urine Bilirubin (Negative) Urine Urobilinogen (Negative) mg/dL Ur Leukocyte [place] ase (Negative) Urine RBC (0-2) /hpf Urine WBC (0-5) /hpf Ur Squamous Epith Cells (0-5) /hpf Amorphous Sediment Urine Bacteria (NONE) /hpf Serum Ketones (Negative) 08/01/20 08/01/20 08/01/20 Range/Units 09:34 11:06 12:22 WBC (4.0-10.0) 10^3/ uL RBC (4.1-5.3) 10^6/u L Hgb (11.5-15.3) g/dL Hct (37.0-47.0) % MCV (81-99) fL MCH (28.0-34.0) pg MCHC (30.0-36.0) g/dL RDW (12.1-15.1) % Plt Count (130-400) 10^3/c mm MPV (7.4-10.4) fL Neut % (Auto) % Lymph % (Auto) % [place] % (Auto) % Eos % (Auto) % Baso % (Auto) % Neut # (Auto) (1.8-7.7) 10^3/u L Lymph # (Auto) (0.8-4.8) 10^3/u L [place] # (Auto) (0.2-0.9) 10^3/u L Eos # (Auto) (0.0-0.8) 10^3/u L Baso # (Auto) (0.0-0.1) 10^3/u L Nucleated RBC % (a uto) % Nucleated RBCs # /100WBC Sodium (136-145) mmol/L Potassium (3.5-5.1) mmol/L Chloride (98-107) mmol/L Carbon Dioxide (22-29) mmol/L Anion Gap (5-19) BUN (6-20) mg/dL Creatinine (0.5-0.9) mg/dL GFR Calculation (90-130) mL/min Glucose (65-115) mg/dL POC Glucose 516 H* 568 H* 561 H* (70-110) mg/dL Estimat Average Gl ucose Hemoglobin A1c (4.0-6.0) % Calculated Osmolal ity (285-295) mOsm/k g Calcium (8.5-10.5) mg/dL Magnesium (1.7-2.3) mg/dL Total Bilirubin (0.15-1.2) mg/dL AST (0-32) U/L ALT (0-33) U/L Alkaline Phosphata se (35-105) IU/L Troponin T Gen 5 n g/L (0-10) ng/L C-Reactive Protein (0.0-4.9) mg/L Total Protein (6.6-8.7) g/dL Albumin (3.5-5.2) g/dL Globulin (1.3-4.6) g/dL Lipase (13-60) U/L Urine Color (Yellow) Urine Appearance (CLEAR) Urine pH (5-7) Ur Specific Gravit y (1.005-1.030) Urine Protein (Negative) Urine Glucose (UA) (Normal) Urine Ketones (Negative) Urine Blood (Negative) Urine Nitrate (Negative) Urine Bilirubin (Negative) Urine Urobilinogen (Negative) mg/dL Ur Leukocyte [place] ase (Negative) Urine RBC (0-2) /hpf Urine WBC (0-5) /hpf Ur Squamous Epith Cells (0-5) /hpf Amorphous Sediment Urine Bacteria (NONE) /hpf Serum Ketones (Negative) 08/01/20 08/01/20 08/01/20 Range/Units 13:43 13:57 15:31 WBC (4.0-10.0) 10^3/ uL RBC (4.1-5.3) 10^6/u L Hgb (11.5-15.3) g/dL Hct (37.0-47.0) % MCV (81-99) fL MCH (28.0-34.0) pg MCHC (30.0-36.0) g/dL RDW (12.1-15.1) % Plt Count (130-400) 10^3/c mm MPV (7.4-10.4) fL Neut % (Auto) % Lymph % (Auto) % [place] % (Auto) % Eos % (Auto) % Baso % (Auto) % Neut # (Auto) (1.8-7.7) 10^3/u L Lymph # (Auto) (0.8-4.8) 10^3/u L [place] # (Auto) (0.2-0.9) 10^3/u L Eos # (Auto) (0.0-0.8) 10^3/u L Baso # (Auto) (0.0-0.1) 10^3/u L Nucleated RBC % (a uto) % Nucleated RBCs # /100WBC Sodium (136-145) mmol/L Potassium (3.5-5.1) mmol/L Chloride (98-107) mmol/L Carbon Dioxide (22-29) mmol/L Anion Gap (5-19) BUN (6-20) mg/dL Creatinine (0.5-0.9) mg/dL GFR Calculation (90-130) mL/min Glucose (65-115) mg/dL POC Glucose 514 H* 341 H (70-110) mg/dL Estimat Average Gl ucose Hemoglobin A1c (4.0-6.0) % Calculated Osmolal ity (285-295) mOsm/k g Calcium (8.5-10.5) mg/dL Magnesium (1.7-2.3) mg/dL Total Bilirubin (0.15-1.2) mg/dL AST (0-32) U/L ALT (0-33) U/L Alkaline Phosphata se (35-105) IU/L Troponin T Gen 5 n g/L (0-10) ng/L C-Reactive Protein (0.0-4.9) mg/L Total Protein (6.6-8.7) g/dL Albumin (3.5-5.2) g/dL Globulin (1.3-4.6) g/dL Lipase (13-60) U/L Urine Color Yellow (Yellow) Urine Appearance Cloudy (CLEAR) Urine pH 5 (5-7) Ur Specific Gravit y 1.015 (1.005-1.030) Urine Protein Trace (Negative) Urine Glucose (UA) 4+ H (Normal) Urine Ketones Negative (Negative) Urine Blood 2+ H (Negative) Urine Nitrate Negative (Negative) Urine Bilirubin Neg (Negative) Urine Urobilinogen Norm (Negative) mg/dL Ur Leukocyte [place] ase 2+ H (Negative) Urine RBC 5-10 H (0-2) /hpf Urine WBC Too numerous to c nt H (0-5) /hpf Ur Squamous Epith Cells 5-10 H (0-5) /hpf Amorphous Sediment Not Reportable Urine Bacteria 4+ H (NONE) /hpf Serum Ketones (Negative) 08/01/20 Range/Units 16:50 WBC (4.0-10.0) 10^3/ uL RBC (4.1-5.3) 10^6/u L Hgb (11.5-15.3) g/dL Hct (37.0-47.0) % MCV (81-99) fL MCH (28.0-34.0) pg MCHC (30.0-36.0) g/dL RDW (12.1-15.1) % Plt Count (130-400) 10^3/c mm MPV (7.4-10.4) fL Neut % (Auto) % Lymph % (Auto) % [place] % (Auto) % Eos % (Auto) % Baso % (Auto) % Neut # (Auto) (1.8-7.7) 10^3/u L Lymph # (Auto) (0.8-4.8) 10^3/u L [place] # (Auto) (0.2-0.9) 10^3/u L Eos # (Auto) (0.0-0.8) 10^3/u L Baso # (Auto) (0.0-0.1) 10^3/u L Nucleated RBC % (a uto) % Nucleated RBCs # /100WBC Sodium (136-145) mmol/L Potassium (3.5-5.1) mmol/L Chloride (98-107) mmol/L Carbon Dioxide (22-29) mmol/L Anion Gap (5-19) BUN (6-20) mg/dL Creatinine (0.5-0.9) mg/dL GFR Calculation (90-130) mL/min Glucose (65-115) mg/dL POC Glucose 273 H (70-110) mg/dL Estimat Average Gl ucose Hemoglobin A1c (4.0-6.0) % Calculated Osmolal ity (285-295) mOsm/k g Calcium (8.5-10.5) mg/dL Magnesium (1.7-2.3) mg/dL Total Bilirubin (0.15-1.2) mg/dL AST (0-32) U/L ALT (0-33) U/L Alkaline Phosphata se (35-105) IU/L Troponin T Gen 5 n g/L (0-10) ng/L C-Reactive Protein (0.0-4.9) mg/L Total Protein (6.6-8.7) g/dL Albumin (3.5-5.2) g/dL Globulin (1.3-4.6) g/dL Lipase (13-60) U/L Urine Color (Yellow) Urine Appearance (CLEAR) Urine pH (5-7) Ur Specific Gravit y (1.005-1.030) Urine Protein (Negative) Urine Glucose (UA) (Normal) Urine Ketones (Negative) Urine Blood (Negative) Urine Nitrate (Negative) Urine Bilirubin (Negative) Urine Urobilinogen (Negative) mg/dL Ur Leukocyte [place] ase (Negative) Urine RBC (0-2) /hpf Urine WBC (0-5) /hpf Ur Squamous Epith Cells (0-5) /hpf Amorphous Sediment Urine Bacteria (NONE) /hpf Serum Ketones (Negative) EKG Data^: EKG 1: EKG interpretation date: 07/31/20 EKG interpretation time: 17:56 Interpretation: Atrial fibrillation, rate of 104, no ST elevation or depression, intervals within normal limits Computer generated interpretation: Chest X-Ray 08/01/20 07:55 Impression: Cardiomegaly. Soft Tissue Ultrasound 08/01/20 08:37 IMPRESSION: Soft tissue edema and thickening over the LEFT breast but no drainable collection. Renal Ultrasound 08/02/20 08:00 IMPRESSION: 1. Technically limited evaluation of the kidneys due to body habitus. 2. No hydronephrosis. 3. Suspect small bilateral renal cysts. Discharge Plan Discharge Patient Disposition: Admitted As Inpatient Admit Provider: Joaquín Chang Clinical Impression: Abscess, Hyperglycemia Condition: Stable Discharge Diet: Usual diet Discharge Activity: Resume usual activity Coding Level of Care Code ED Van Driver Helper for Chg Fwd Exam Detailed Documented by User: Dory Ruvalcaba MD 07/31/20 20:21 HPI - General Adult General: Chief complaint: General Medical Stated complaint: BOIL UNDER BREAST, HYPERGLYCEMIA Time Seen by Provider: 07/31/20 17:04 PFS ED PFSH: Medical History Atrial fibrillation Chronic anticoagulation On hold due to vaginal bleeding Congestive heart failure COPD (chronic obstructive pulmonary disease) Generalized anxiety disorder Hoarding disorder with excessive acquisition Hypertension Hypertension Hyponatremia Hypothyroidism Major depressive disorder, recurrent severe without psychotic features Morbid obesity DELMIS (obstructive sleep apnea) 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 Surgical History History of dental surgery Status post biopsy of skin Family History Other Chronic kidney disease (CKD) Diabetes Hypertension Thyroid disease Social History Smoking and tobacco status: former smoker Quit status (tobacco): has quit using tobacco Year quit tobacco: 2006 [id number] Second hand smoke exposure: No Smoking risk assessment/counseling performed?: Yes Alcohol intake: never Lives independently: Yes Household members: spouse Marital status: Marital status details: is wheelchair-bound, Current occupational status: disabled Pets and animals: Yes History of recent travel: No Current gender identity: Female Course Vital Signs: Vital signs: Vital Signs Temperature 98.0 F 08/07/20 15:45 Pulse Rate 80 08/07/20 15:45 Respiratory Rate 18 08/07/20 15:45 Blood Pressure 127/81 08/07/20 15:45 Pulse Oximetry 97 08/07/20 15:45 MDM - General Adult MDM Narrative: Medical decision making narrative: I took patient from Dr. Lockwood. Patient has severe hyperglycemia that is over 1000. She is not in DKA. He did incise and drain her abscess. We will start her on an insulin drip and admit her to ICU. I spoke to the hospitalist. Patient has been stable on the ER. Lab Data: Labs: Lab Results 07/31/20 07/31/20 07/31/20 Range/Units 17:12 17:32 17:32 WBC 9.2 (4.0-10.0) 10^3/ uL RBC 4.89 (4.1-5.3) 10^6/u L Hgb 12.5 (11.5-15.3) g/dL Hct 42.1 (37.0-47.0) % MCV 86.1 (81-99) fL MCH 25.6 L (28.0-34.0) pg MCHC 29.7 L (30.0-36.0) g/dL RDW 17.9 H (12.1-15.1) % Plt Count 287 (130-400) 10^3/c mm MPV 12.9 H (7.4-10.4) fL Neut % (Auto) 81.4 % Lymph % (Auto) 10.7 % [place] % (Auto) 4.8 % Eos % (Auto) 2.0 % Baso % (Auto) 0.8 % Neut # (Auto) 7.50 (1.8-7.7) 10^3/u L Lymph # (Auto) 1.0 (0.8-4.8) 10^3/u L [place] # (Auto) 0.4 (0.2-0.9) 10^3/u L Eos # (Auto) 0.2 (0.0-0.8) 10^3/u L Baso # (Auto) 0.1 (0.0-0.1) 10^3/u L Nucleated RBC % (a uto) 0 % Nucleated RBCs # 0.0 /100WBC Sodium 113 L* (136-145) mmol/L Potassium 5.1 (3.5-5.1) mmol/L Chloride 77 L (98-107) mmol/L Carbon Dioxide 24 (22-29) mmol/L Anion Gap 17.1 (5-19) BUN 22 H (6-20) mg/dL Creatinine 2.0 H (0.5-0.9) mg/dL GFR Calculation 25.9 L (90-130) mL/min Glucose 1248 H* (65-115) mg/dL POC Glucose > 600 H* (70-110) mg/dL Estimat Average Gl ucose Hemoglobin A1c (4.0-6.0) % Calculated Osmolal ity 303 H (285-295) mOsm/k g Calcium 8.8 (8.5-10.5) mg/dL Magnesium (1.7-2.3) mg/dL Total Bilirubin 0.9 (0.15-1.2) mg/dL AST 6 (0-32) U/L ALT 8 (0-33) U/L Alkaline Phosphata se 140 H (35-105) IU/L Troponin T Gen 5 n g/L (0-10) ng/L C-Reactive Protein (0.0-4.9) mg/L Total Protein 7.3 (6.6-8.7) g/dL Albumin 3.7 (3.5-5.2) g/dL Globulin 3.6 (1.3-4.6) g/dL Lipase (13-60) U/L Urine Color (Yellow) Urine Appearance (CLEAR) Urine pH (5-7) Ur Specific Gravit y (1.005-1.030) Urine Protein (Negative) Urine Glucose (UA) (Normal) Urine Ketones (Negative) Urine Blood (Negative) Urine Nitrate (Negative) Urine Bilirubin (Negative) Urine Urobilinogen (Negative) mg/dL Ur Leukocyte [place] ase (Negative) Urine RBC (0-2) /hpf Urine WBC (0-5) /hpf Ur Squamous Epith Cells (0-5) /hpf Amorphous Sediment Urine Bacteria (NONE) /hpf Serum Ketones (Negative) 07/31/20 07/31/20 07/31/20 Range/Units 17:32 17:32 17:32 WBC (4.0-10.0) 10^3/ uL RBC (4.1-5.3) 10^6/u L Hgb (11.5-15.3) g/dL Hct (37.0-47.0) % MCV (81-99) fL MCH (28.0-34.0) pg MCHC (30.0-36.0) g/dL RDW (12.1-15.1) % Plt Count (130-400) 10^3/c mm MPV (7.4-10.4) fL Neut % (Auto) % Lymph % (Auto) % [place] % (Auto) % Eos % (Auto) % Baso % (Auto) % Neut # (Auto) (1.8-7.7) 10^3/u L Lymph # (Auto) (0.8-4.8) 10^3/u L [place] # (Auto) (0.2-0.9) 10^3/u L Eos # (Auto) (0.0-0.8) 10^3/u L Baso # (Auto) (0.0-0.1) 10^3/u L Nucleated RBC % (a uto) % Nucleated RBCs # /100WBC Sodium (136-145) mmol/L Potassium (3.5-5.1) mmol/L Chloride (98-107) mmol/L Carbon Dioxide (22-29) mmol/L Anion Gap (5-19) BUN (6-20) mg/dL Creatinine (0.5-0.9) mg/dL GFR Calculation (90-130) mL/min Glucose (65-115) mg/dL POC Glucose (70-110) mg/dL Estimat Average Gl ucose Hemoglobin A1c (4.0-6.0) % Calculated Osmolal ity (285-295) mOsm/k g Calcium (8.5-10.5) mg/dL Magnesium (1.7-2.3) mg/dL Total Bilirubin (0.15-1.2) mg/dL AST (0-32) U/L ALT (0-33) U/L Alkaline Phosphata se (35-105) IU/L Troponin T Gen 5 n g/L 32 H (0-10) ng/L C-Reactive Protein 25.2 H (0.0-4.9) mg/L Total Protein (6.6-8.7) g/dL Albumin (3.5-5.2) g/dL Globulin (1.3-4.6) g/dL Lipase 48 (13-60) U/L Urine Color (Yellow) Urine Appearance (CLEAR) Urine pH (5-7) Ur Specific Gravit y (1.005-1.030) Urine Protein (Negative) Urine Glucose (UA) (Normal) Urine Ketones (Negative) Urine Blood (Negative) Urine Nitrate (Negative) Urine Bilirubin (Negative) Urine Urobilinogen (Negative) mg/dL Ur Leukocyte [place] ase (Negative) Urine RBC (0-2) /hpf Urine WBC (0-5) /hpf Ur Squamous Epith Cells (0-5) /hpf Amorphous Sediment Urine Bacteria (NONE) /hpf Serum Ketones Negative (Negative) 07/31/20 07/31/20 07/31/20 Range/Units 17:32 20:37 22:26 WBC (4.0-10.0) 10^3/ uL RBC (4.1-5.3) 10^6/u L Hgb (11.5-15.3) g/dL Hct (37.0-47.0) % MCV (81-99) fL MCH (28.0-34.0) pg MCHC (30.0-36.0) g/dL RDW (12.1-15.1) % Plt Count (130-400) 10^3/c mm MPV (7.4-10.4) fL Neut % (Auto) % Lymph % (Auto) % [place] % (Auto) % Eos % (Auto) % Baso % (Auto) % Neut # (Auto) (1.8-7.7) 10^3/u L Lymph # (Auto) (0.8-4.8) 10^3/u L [place] # (Auto) (0.2-0.9) 10^3/u L Eos # (Auto) (0.0-0.8) 10^3/u L Baso # (Auto) (0.0-0.1) 10^3/u L Nucleated RBC % (a uto) % Nucleated RBCs # /100WBC Sodium (136-145) mmol/L Potassium (3.5-5.1) mmol/L Chloride (98-107) mmol/L Carbon Dioxide (22-29) mmol/L Anion Gap (5-19) BUN (6-20) mg/dL Creatinine (0.5-0.9) mg/dL GFR Calculation (90-130) mL/min Glucose (65-115) mg/dL POC Glucose > 600 H* > 600 H* (70-110) mg/dL Estimat Average Gl ucose 358 Hemoglobin A1c 14.1 H (4.0-6.0) % Calculated Osmolal ity (285-295) mOsm/k g Calcium (8.5-10.5) mg/dL Magnesium (1.7-2.3) mg/dL Total Bilirubin (0.15-1.2) mg/dL AST (0-32) U/L ALT (0-33) U/L Alkaline Phosphata se (35-105) IU/L Troponin T Gen 5 n g/L (0-10) ng/L C-Reactive Protein (0.0-4.9) mg/L Total Protein (6.6-8.7) g/dL Albumin (3.5-5.2) g/dL Globulin (1.3-4.6) g/dL Lipase (13-60) U/L Urine Color (Yellow) Urine Appearance (CLEAR) Urine pH (5-7) Ur Specific Gravit y (1.005-1.030) Urine Protein (Negative) Urine Glucose (UA) (Normal) Urine Ketones (Negative) Urine Blood (Negative) Urine Nitrate (Negative) Urine Bilirubin (Negative) Urine Urobilinogen (Negative) mg/dL Ur Leukocyte [place] ase (Negative) Urine RBC (0-2) /hpf Urine WBC (0-5) /hpf Ur Squamous Epith Cells (0-5) /hpf Amorphous Sediment Urine Bacteria (NONE) /hpf Serum Ketones (Negative) 07/31/20 08/01/20 08/01/20 Range/Units 23:26 00:22 01:30 WBC (4.0-10.0) 10^3/ uL RBC (4.1-5.3) 10^6/u L Hgb (11.5-15.3) g/dL Hct (37.0-47.0) % MCV (81-99) fL MCH (28.0-34.0) pg MCHC (30.0-36.0) g/dL RDW (12.1-15.1) % Plt Count (130-400) 10^3/c mm MPV (7.4-10.4) fL Neut % (Auto) % Lymph % (Auto) % [place] % (Auto) % Eos % (Auto) % Baso % (Auto) % Neut # (Auto) (1.8-7.7) 10^3/u L Lymph # (Auto) (0.8-4.8) 10^3/u L [place] # (Auto) (0.2-0.9) 10^3/u L Eos # (Auto) (0.0-0.8) 10^3/u L Baso # (Auto) (0.0-0.1) 10^3/u L Nucleated RBC % (a uto) % Nucleated RBCs # /100WBC Sodium (136-145) mmol/L Potassium (3.5-5.1) mmol/L Chloride (98-107) mmol/L Carbon Dioxide (22-29) mmol/L Anion Gap (5-19) BUN (6-20) mg/dL Creatinine (0.5-0.9) mg/dL GFR Calculation (90-130) mL/min Glucose (65-115) mg/dL POC Glucose 576 H* 464 H 333 H (70-110) mg/dL Estimat Average Gl ucose Hemoglobin A1c (4.0-6.0) % Calculated Osmolal ity (285-295) mOsm/k g Calcium (8.5-10.5) mg/dL Magnesium (1.7-2.3) mg/dL Total Bilirubin (0.15-1.2) mg/dL AST (0-32) U/L ALT (0-33) U/L Alkaline Phosphata se (35-105) IU/L Troponin T Gen 5 n g/L (0-10) ng/L C-Reactive Protein (0.0-4.9) mg/L Total Protein (6.6-8.7) g/dL Albumin (3.5-5.2) g/dL Globulin (1.3-4.6) g/dL Lipase (13-60) U/L Urine Color (Yellow) Urine Appearance (CLEAR) Urine pH (5-7) Ur Specific Gravit y (1.005-1.030) Urine Protein (Negative) Urine Glucose (UA) (Normal) Urine Ketones (Negative) Urine Blood (Negative) Urine Nitrate (Negative) Urine Bilirubin (Negative) Urine Urobilinogen (Negative) mg/dL Ur Leukocyte [place] ase (Negative) Urine RBC (0-2) /hpf Urine WBC (0-5) /hpf Ur Squamous Epith Cells (0-5) /hpf Amorphous Sediment Urine Bacteria (NONE) /hpf Serum Ketones (Negative) 08/01/20 08/01/20 08/01/20 Range/Units 02:18 02:52 02:52 WBC 14.6 H (4.0-10.0) 10^3/ uL RBC 5.25 (4.1-5.3) 10^6/u L Hgb 13.5 (11.5-15.3) g/dL Hct 41.8 (37.0-47.0) % MCV 79.6 L D (81-99) fL MCH 25.7 L (28.0-34.0) pg MCHC 32.3 D (30.0-36.0) g/dL RDW 17.5 H (12.1-15.1) % Plt Count 360 (130-400) 10^3/c mm MPV 12.1 H (7.4-10.4) fL Neut % (Auto) 77.9 % Lymph % (Auto) 11.3 % [place] % (Auto) 7.7 % Eos % (Auto) 2.0 % Baso % (Auto) 0.6 % Neut # (Auto) 11.39 H (1.8-7.7) 10^3/u L Lymph # (Auto) 1.7 (0.8-4.8) 10^3/u L [place] # (Auto) 1.1 H (0.2-0.9) 10^3/u L Eos # (Auto) 0.3 (0.0-0.8) 10^3/u L Baso # (Auto) 0.1 (0.0-0.1) 10^3/u L Nucleated RBC % (a uto) 0 % Nucleated RBCs # 0.0 /100WBC Sodium 128 L D (136-145) mmol/L Potassium 3.9 (3.5-5.1) mmol/L Chloride 89 L (98-107) mmol/L Carbon Dioxide 25 (22-29) mmol/L Anion Gap 17.9 (5-19) BUN 21 H (6-20) mg/dL Creatinine 1.8 H (0.5-0.9) mg/dL GFR Calculation 29.2 L (90-130) mL/min Glucose 249 H (65-115) mg/dL POC Glucose 244 H (70-110) mg/dL Estimat Average Gl ucose Hemoglobin A1c (4.0-6.0) % Calculated Osmolal ity 277 L (285-295) mOsm/k g Calcium 9.1 (8.5-10.5) mg/dL Magnesium (1.7-2.3) mg/dL Total Bilirubin (0.15-1.2) mg/dL AST (0-32) U/L ALT (0-33) U/L Alkaline Phosphata se (35-105) IU/L Troponin T Gen 5 n g/L (0-10) ng/L C-Reactive Protein (0.0-4.9) mg/L Total Protein (6.6-8.7) g/dL Albumin (3.5-5.2) g/dL Globulin (1.3-4.6) g/dL Lipase (13-60) U/L Urine Color (Yellow) Urine Appearance (CLEAR) Urine pH (5-7) Ur Specific Gravit y (1.005-1.030) Urine Protein (Negative) Urine Glucose (UA) (Normal) Urine Ketones (Negative) Urine Blood (Negative) Urine Nitrate (Negative) Urine Bilirubin (Negative) Urine Urobilinogen (Negative) mg/dL Ur Leukocyte [place] ase (Negative) Urine RBC (0-2) /hpf Urine WBC (0-5) /hpf Ur Squamous Epith Cells (0-5) /hpf Amorphous Sediment Urine Bacteria (NONE) /hpf Serum Ketones (Negative) 08/01/20 08/01/20 08/01/20 Range/Units 02:52 07:21 09:33 WBC (4.0-10.0) 10^3/ uL RBC (4.1-5.3) 10^6/u L Hgb (11.5-15.3) g/dL Hct (37.0-47.0) % MCV (81-99) fL MCH (28.0-34.0) pg MCHC (30.0-36.0) g/dL RDW (12.1-15.1) % Plt Count (130-400) 10^3/c mm MPV (7.4-10.4) fL Neut % (Auto) % Lymph % (Auto) % [place] % (Auto) % Eos % (Auto) % Baso % (Auto) % Neut # (Auto) (1.8-7.7) 10^3/u L Lymph # (Auto) (0.8-4.8) 10^3/u L [place] # (Auto) (0.2-0.9) 10^3/u L Eos # (Auto) (0.0-0.8) 10^3/u L Baso # (Auto) (0.0-0.1) 10^3/u L Nucleated RBC % (a uto) % Nucleated RBCs # /100WBC Sodium (136-145) mmol/L Potassium (3.5-5.1) mmol/L Chloride (98-107) mmol/L Carbon Dioxide (22-29) mmol/L Anion Gap (5-19) BUN (6-20) mg/dL Creatinine (0.5-0.9) mg/dL GFR Calculation (90-130) mL/min Glucose (65-115) mg/dL POC Glucose 524 H* 526 H* (70-110) mg/dL Estimat Average Gl ucose Hemoglobin A1c (4.0-6.0) % Calculated Osmolal ity (285-295) mOsm/k g Calcium (8.5-10.5) mg/dL Magnesium 2.2 (1.7-2.3) mg/dL Total Bilirubin (0.15-1.2) mg/dL AST (0-32) U/L ALT (0-33) U/L Alkaline Phosphata se (35-105) IU/L Troponin T Gen 5 n g/L (0-10) ng/L C-Reactive Protein (0.0-4.9) mg/L Total Protein (6.6-8.7) g/dL Albumin (3.5-5.2) g/dL Globulin (1.3-4.6) g/dL Lipase (13-60) U/L Urine Color (Yellow) Urine Appearance (CLEAR) Urine pH (5-7) Ur Specific Gravit y (1.005-1.030) Urine Protein (Negative) Urine Glucose (UA) (Normal) Urine Ketones (Negative) Urine Blood (Negative) Urine Nitrate (Negative) Urine Bilirubin (Negative) Urine Urobilinogen (Negative) mg/dL Ur Leukocyte [place] ase (Negative) Urine RBC (0-2) /hpf Urine WBC (0-5) /hpf Ur Squamous Epith Cells (0-5) /hpf Amorphous Sediment Urine Bacteria (NONE) /hpf Serum Ketones (Negative) 08/01/20 08/01/20 08/01/20 Range/Units 09:34 11:06 12:22 WBC (4.0-10.0) 10^3/ uL RBC (4.1-5.3) 10^6/u L Hgb (11.5-15.3) g/dL Hct (37.0-47.0) % MCV (81-99) fL MCH (28.0-34.0) pg MCHC (30.0-36.0) g/dL RDW (12.1-15.1) % Plt Count (130-400) 10^3/c mm MPV (7.4-10.4) fL Neut % (Auto) % Lymph % (Auto) % [place] % (Auto) % Eos % (Auto) % Baso % (Auto) % Neut # (Auto) (1.8-7.7) 10^3/u L Lymph # (Auto) (0.8-4.8) 10^3/u L [place] # (Auto) (0.2-0.9) 10^3/u L Eos # (Auto) (0.0-0.8) 10^3/u L Baso # (Auto) (0.0-0.1) 10^3/u L Nucleated RBC % (a uto) % Nucleated RBCs # /100WBC Sodium (136-145) mmol/L Potassium (3.5-5.1) mmol/L Chloride (98-107) mmol/L Carbon Dioxide (22-29) mmol/L Anion Gap (5-19) BUN (6-20) mg/dL Creatinine (0.5-0.9) mg/dL GFR Calculation (90-130) mL/min Glucose (65-115) mg/dL POC Glucose 516 H* 568 H* 561 H* (70-110) mg/dL Estimat Average Gl ucose Hemoglobin A1c (4.0-6.0) % Calculated Osmolal ity (285-295) mOsm/k g Calcium (8.5-10.5) mg/dL Magnesium (1.7-2.3) mg/dL Total Bilirubin (0.15-1.2) mg/dL AST (0-32) U/L ALT (0-33) U/L Alkaline Phosphata se (35-105) IU/L Troponin T Gen 5 n g/L (0-10) ng/L C-Reactive Protein (0.0-4.9) mg/L Total Protein (6.6-8.7) g/dL Albumin (3.5-5.2) g/dL Globulin (1.3-4.6) g/dL Lipase (13-60) U/L Urine Color (Yellow) Urine Appearance (CLEAR) Urine pH (5-7) Ur Specific Gravit y (1.005-1.030) Urine Protein (Negative) Urine Glucose (UA) (Normal) Urine Ketones (Negative) Urine Blood (Negative) Urine Nitrate (Negative) Urine Bilirubin (Negative) Urine Urobilinogen (Negative) mg/dL Ur Leukocyte [place] ase (Negative) Urine RBC (0-2) /hpf Urine WBC (0-5) /hpf Ur Squamous Epith Cells (0-5) /hpf Amorphous Sediment Urine Bacteria (NONE) /hpf Serum Ketones (Negative) 08/01/20 08/01/20 08/01/20 Range/Units 13:43 13:57 15:31 WBC (4.0-10.0) 10^3/ uL RBC (4.1-5.3) 10^6/u L Hgb (11.5-15.3) g/dL Hct (37.0-47.0) % MCV (81-99) fL MCH (28.0-34.0) pg MCHC (30.0-36.0) g/dL RDW (12.1-15.1) % Plt Count (130-400) 10^3/c mm MPV (7.4-10.4) fL Neut % (Auto) % Lymph % (Auto) % [place] % (Auto) % Eos % (Auto) % Baso % (Auto) % Neut # (Auto) (1.8-7.7) 10^3/u L Lymph # (Auto) (0.8-4.8) 10^3/u L [place] # (Auto) (0.2-0.9) 10^3/u L Eos # (Auto) (0.0-0.8) 10^3/u L Baso # (Auto) (0.0-0.1) 10^3/u L Nucleated RBC % (a uto) % Nucleated RBCs # /100WBC Sodium (136-145) mmol/L Potassium (3.5-5.1) mmol/L Chloride (98-107) mmol/L Carbon Dioxide (22-29) mmol/L Anion Gap (5-19) BUN (6-20) mg/dL Creatinine (0.5-0.9) mg/dL GFR Calculation (90-130) mL/min Glucose (65-115) mg/dL POC Glucose 514 H* 341 H (70-110) mg/dL Estimat Average Gl ucose Hemoglobin A1c (4.0-6.0) % Calculated Osmolal ity (285-295) mOsm/k g Calcium (8.5-10.5) mg/dL Magnesium (1.7-2.3) mg/dL Total Bilirubin (0.15-1.2) mg/dL AST (0-32) U/L ALT (0-33) U/L Alkaline Phosphata se (35-105) IU/L Troponin T Gen 5 n g/L (0-10) ng/L C-Reactive Protein (0.0-4.9) mg/L Total Protein (6.6-8.7) g/dL Albumin (3.5-5.2) g/dL Globulin (1.3-4.6) g/dL Lipase (13-60) U/L Urine Color Yellow (Yellow) Urine Appearance Cloudy (CLEAR) Urine pH 5 (5-7) Ur Specific Gravit y 1.015 (1.005-1.030) Urine Protein Trace (Negative) Urine Glucose (UA) 4+ H (Normal) Urine Ketones Negative (Negative) Urine Blood 2+ H (Negative) Urine Nitrate Negative (Negative) Urine Bilirubin Neg (Negative) Urine Urobilinogen Norm (Negative) mg/dL Ur Leukocyte [place] ase 2+ H (Negative) Urine RBC 5-10 H (0-2) /hpf Urine WBC Too numerous to c nt H (0-5) /hpf Ur Squamous Epith Cells 5-10 H (0-5) /hpf Amorphous Sediment Not Reportable Urine Bacteria 4+ H (NONE) /hpf Serum Ketones (Negative) 08/01/20 Range/Units 16:50 WBC (4.0-10.0) 10^3/ uL RBC (4.1-5.3) 10^6/u L Hgb (11.5-15.3) g/dL Hct (37.0-47.0) % MCV (81-99) fL MCH (28.0-34.0) pg MCHC (30.0-36.0) g/dL RDW (12.1-15.1) % Plt Count (130-400) 10^3/c mm MPV (7.4-10.4) fL Neut % (Auto) % Lymph % (Auto) % [place] % (Auto) % Eos % (Auto) % Baso % (Auto) % Neut # (Auto) (1.8-7.7) 10^3/u L Lymph # (Auto) (0.8-4.8) 10^3/u L [place] # (Auto) (0.2-0.9) 10^3/u L Eos # (Auto) (0.0-0.8) 10^3/u L Baso # (Auto) (0.0-0.1) 10^3/u L Nucleated RBC % (a uto) % Nucleated RBCs # /100WBC Sodium (136-145) mmol/L Potassium (3.5-5.1) mmol/L Chloride (98-107) mmol/L Carbon Dioxide (22-29) mmol/L Anion Gap (5-19) BUN (6-20) mg/dL Creatinine (0.5-0.9) mg/dL GFR Calculation (90-130) mL/min Glucose (65-115) mg/dL POC Glucose 273 H (70-110) mg/dL Estimat Average Gl ucose Hemoglobin A1c (4.0-6.0) % Calculated Osmolal ity (285-295) mOsm/k g Calcium (8.5-10.5) mg/dL Magnesium (1.7-2.3) mg/dL Total Bilirubin (0.15-1.2) mg/dL AST (0-32) U/L ALT (0-33) U/L Alkaline Phosphata se (35-105) IU/L Troponin T Gen 5 n g/L (0-10) ng/L C-Reactive Protein (0.0-4.9) mg/L Total Protein (6.6-8.7) g/dL Albumin (3.5-5.2) g/dL Globulin (1.3-4.6) g/dL Lipase (13-60) U/L Urine Color (Yellow) Urine Appearance (CLEAR) Urine pH (5-7) Ur Specific Gravit y (1.005-1.030) Urine Protein (Negative) Urine Glucose (UA) (Normal) Urine Ketones (Negative) Urine Blood (Negative) Urine Nitrate (Negative) Urine Bilirubin (Negative) Urine Urobilinogen (Negative) mg/dL Ur Leukocyte [place] ase (Negative) Urine RBC (0-2) /hpf Urine WBC (0-5) /hpf Ur Squamous Epith Cells (0-5) /hpf Amorphous Sediment Urine Bacteria (NONE) /hpf Serum Ketones (Negative) EKG Data^: EKG 1: Computer generated interpretation: Chest X-Ray 08/01/20 07:55 Impression: Cardiomegaly. Soft Tissue Ultrasound 08/01/20 08:37 IMPRESSION: Soft tissue edema and thickening over the LEFT breast but no drainable collection. Renal Ultrasound 08/02/20 08:00 IMPRESSION: 1. Technically limited evaluation of the kidneys due to body habitus. 2. No hydronephrosis. 3. Suspect small bilateral renal cysts. Critical Care Time Critical Care Time: Critical Care Time: Yes Total Critical Care Time: 36 Attestation: This case had a high probability of a clinically significant, sudden, or life threatening deterioration of this patient's condition which required my full and direct attention, intervention and personal management. 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
[2020-07-31 17:56] LABS: Basophils # 0.1 10^3/uL (0.0-0.1); Basophils % 0.8 %; Eosinophils # 0.2 10^3/uL (0.0-0.8); Hematocrit 42.1 % (37.0-47.0); Hemoglobin 12.5 g/dL (11.5-15.3); Lymphocytes % 10.7 %; Mean Corpuscular HGB Conc 29.7 g/dL (30.0-36.0); Mean Corpuscular Hemoglobin 25.6 pg (28.0-34.0); Mean Corpuscular Volume 86.1 fL (81-99); Mean Platelet Volume 12.9 fL (7.4-10.4); Monocytes # 0.4 10^3/uL (0.2-0.9); Monocytes % 4.8 %; Neutrophils % 81.4 %; Nucleated Red Blood Cells % 0 %; Platelet Count 287 10^3/cmm (130-400); Red Blood Count 4.89 10^6/uL (4.1-5.3); Red Cell Distribution Width 17.9 % (12.1-15.1); White Blood Count 9.2 10^3/uL (4.0-10.0)
--- NOTE | 2020-07-31 18:03 | PC.NURSE ---
EKG done at 1800 and shown to ER doctor
[2020-07-31 18:41] LABS: Alanine Aminotransferase 8 U/L (0-33); Albumin Level 3.7 g/dL (3.5-5.2); Alkaline Phosphatase 140 IU/L (35-105); Anion Gap 17.1 (5-19); Aspartate Amino Transferase 6 U/L (0-32); Blood Urea Nitrogen 22 mg/dL (6-20); Calcium 8.8 mg/dL (8.5-10.5); Carbon Dioxide 24 mmol/L (22-29); Chloride 77 mmol/L (98-107); Globulin 3.6 g/dL (1.3-4.6); Glomerular Filtration Rate 25.9 mL/min (90-130); Potassium 5.1 mmol/L (3.5-5.1); Total Bilirubin 0.9 mg/dL (0.15-1.2); Total Protein 7.3 g/dL (6.6-8.7)
[2020-07-31 18:49] LABS: Sodium 113 mmol/L (136-145)
[2020-07-31 18:58] LABS: Osmolality Calculated 303 mOsm/kg (285-295)
[2020-07-31 19:00] LABS: Glucose 1248 mg/dL (65-115)
[2020-07-31 19:09] LABS: Ketone (Acetest) Serum Negative (Negative)
--- NOTE | 2020-07-31 19:36 | P.HP_ITS ---
Providers/Chief Complaint Primary Care Provider: Mervat Nguyen Chief Complaint: BOIL UNDER BREAST, HYPERGLYCEMIA History of Present Illness Ana Lilia Miller is a 55 year old female patient of discharge from the hospital after management of congestive heart failure exacerbation and herpes labialis, presented today with chief complaint of pain under her left breast. Patient stating that she noticed a boil under her left breast which started on Wednesday, she did not notice any purulent discharge, it was getting painful hence decided to come to the hospital for further evaluation. For last few days her blood sugar has been consistently high glucose monitor was reading is at her, she was taking Basaglar 10 units along sliding scale, she has not noticed fever, nausea, vomiting, chest pain, shortness of breath, UTI symptoms, abdominal pain. She takes Valtrex for herpes labialis on as-needed basis. She uses 6 L of oxygen [id number] she is still due for her sleep study to acquire CPAP at home, she is wheelchair-bound. Takes Lasix 40 mg twice a day, no recent CHF exacerbation or excessive weight gain. She is endorsing fatigue and lethargy. Diagnostics in the ER revealed hyperglycemia without DKA, patient is awake alert no signs of confusion pseudohyponatremia noted I have requested troponin EKG showing atrial fibrillation, CRP requested, serum ketones negative, she is not acidotic, would request portable chest x-ray, abscess was drained by the ER physician which was under her left breast, 10 mL abscess was drained as per the procedure note for incision and drainage Review of Systems Const: Reports: body aches and fatigue; Denies: fever(s) or chills Eyes: Denies: change in vision ENMT: Denies: throat pain Card: Reports: irregular heart rhythm and dyspnea on exertion; Denies: chest pain Resp: Denies: dyspnea GI: Reports: nausea and vomiting; Denies: abdominal pain, diarrhea or constipation : Denies: flank pain, urinary frequency or dribbling Musc: Denies: neck pain or extremity swelling Skin/Breast: Reports: lesions Neuro: Denies: headache(s) Psych: Reports: anxiety and depression Endo: Denies: polyuria Leonid/Lymph: Denies: easy bruising All/Imm: Denies: urticaria Medications/Allergies Home Medications Medication Instructions Recorded Confirmed Last Taken Type diclofenac sodium 4 g TOPICAL QID PRN 08/07/19 07/31/20 07/30/20 History gabapentin 300 mg capsule 300 mg PO TID@0500,1300,2100 10/05/19 07/31/20 07/31/20 History Basaglar KwikPen U-100 Insulin 10 unit SUBCUT DAILY@0500 03/03/20 07/31/20 07/31/20 History levothyroxine 25 mcg PO DAILY@0500 03/03/20 07/31/20 07/31/20 History nystatin See Rx Instructions .ROUTE .COMPLEX 03/03/20 07/31/20 07/31/20 History ondansetron HCl 4 mg PO Q6H PRN 03/03/20 07/31/20 Unknown History Breo Ellipta 1 inh INHALATION Q24H 06/18/20 07/31/20 07/30/20 History Eliquis 5 mg PO Q12H 06/18/20 07/31/20 07/31/20 History Incruse Ellipta 1 inh INHALATION Q24H 06/18/20 07/31/20 07/30/20 History cranberry See Rx Instructions .ROUTE .COMPLEX 06/18/20 07/31/20 Unknown History insulin aspart U-100 [Novolog See Rx Instructions .ROUTE .COMPLEX 06/18/20 07/31/20 07/31/20 History U-100 Insulin aspart] metoprolol tartrate 25 mg PO Q12H 06/18/20 07/31/20 07/31/20 History pantoprazole 40 mg tablet,delayed 40 mg PO DAILY@0500 06/18/20 07/31/20 07/31/20 History release sumatriptan succinate [Imitrex] 25 mg PO PRN 06/18/20 07/31/20 Unknown History hydrocodone-acetaminophen 1 tab PO Q4H PRN #12 tab MDD 6 tabs 06/24/20 07/31/20 07/31/20 Rx valacyclovir [Valtrex] 1,000 mg PO Q12H 7 Days #14 tab 07/08/20 07/31/20 Unknown Rx Abilify 5 mg PO DAILY@0500 07/31/20 07/31/20 07/31/20 History Wellbutrin SR 200 mg PO DAILY@0500 07/31/20 07/31/20 07/31/20 History Zoloft 100 mg PO DAILY@0500 07/31/20 07/31/20 07/31/20 History furosemide 80 mg PO BID@0500,1700 07/31/20 07/31/20 07/31/20 History potassium chloride 10 meq PO BID@0500,1700 07/31/20 07/31/20 07/31/20 History Allergies Allergy/AdvReac Type Severity Reaction Status Date / Time Tetracyclines Allergy Severe ALGY-Anaphy Verified 06/18/20 15:27 laxis wool Allergy Intermediate ALGY-Hives Verified 06/18/20 15:27 mushroom Allergy Unknown Verified 07/04/20 15:51 adhesive AdvReac Unknown Verified 06/18/20 15:27 Artificial Sweetners AdvReac Intermediate ADR-Headach Uncoded 07/20/19 04:24 e PFSH Acute PFSH: Medical History Atrial fibrillation Chronic anticoagulation On hold due to vaginal bleeding Chronic kidney disease, stage III (moderate) Cr has ranged 1.6-2.1 since 11/27 Congestive heart failure COPD (chronic obstructive pulmonary disease) Diabetes mellitus type 2, noninsulin dependent Generalized anxiety disorder Hoarding disorder with excessive acquisition Hypertension Hypothyroidism last TSH in 03/30 was 6.18 Major depressive disorder, recurrent severe without psychotic features Morbid obesity with BMI of 60.0-69.9, adult DELMIS (obstructive sleep apnea) Oxygen dependent Surgical History History of dental surgery Status post biopsy of skin Family History Other Chronic kidney disease (CKD) Diabetes Hypertension Thyroid disease Social History Smoking and tobacco status: former smoker Alcohol intake: never Lives independently: Yes Household members: spouse Marital status: Marital status details: is wheelchair-bound, Current occupational status: disabled Current gender identity: Female Vitals/I&O/Wt Last Vital Signs Temp 98.0 F 07/31/20 17:04 Pulse 115 H 07/31/20 17:47 Resp 24 H 07/31/20 17:47 BP 110/71 07/31/20 17:47 Pulse Ox 95 07/31/20 17:47 Weight last 48 hrs Weight 181.437 kg Physical Exam Narrative: EXAM NARRATIVE: Middle-age female who appears more than stated age, morbid obesity, worsening comfortably in her bed without any active discomfort while saturating well on 6 L nasal cannula which is her home regimen No active shortness of breath or chest pain She felt nauseous and experienced 1 episode of vomiting in the ER currently she is not complaining of active chest pain, variable S1-S2 no signs of active heart failure No acute respite distress Abdomen soft nontender bowel sounds present central obesity, ventral hernia Lower extremity no edema gangrene or ulcer, skin is dry No sign of ischemia gangrene or ulcer of lower extremities No signs of confusion she is awake alert oriented x3 GCS 15 EOMI, PERRLA Appropriate mood and affect Extremity skin dry Healed shingle scars noted below her lower lip Abscess has been drained under left breast does not show typical herpes features, no active drainage noted, no active bleeding, open wound Data : 07/31/20 17:32 07/31/20 17:32 A&P Assessment and plan (1) Abscess: Status: Acute (2) Hyperglycemia: Status: Acute (3) Chronic kidney disease, stage III (moderate): Status: Acute Additional A&P Information Hyperglycemia without DKA Type 2 diabetes insulin-dependent, only had development of abscess under her left breast however no active sign of sepsis, no active chest pain, no active confusion, no signs of UTI patient is not complaining abdominal pain Would request troponin, EKG reviewed which is showing atrial fibrillation without ischemic or infarctive changes, would request CRP and portable chest x- ray Start insulin GTT Once her blood sugar is less than 250, would bridge her with long-acting insulin and start sliding scale for now I will keep her on clear liquid diet Potassium 5.1 she is not acidotic anion gap 17 Abscess under left breast Would use doxycycline and topical antibiotics No active shingles Chronic kidney disease stage III no acute exacerbation . creatinine at her baseline No active exacerbation of congestive heart failure Hold Lasix because she is getting fluids for hyperglycemia A. fib RVR heart rate 10 1-1 10 Continue AV reggie blocking agent along Eliquis Full code Clear liquid diet DVT prophylaxis not needed currently she is on Eliquis for A. fib Attestations Medical Necessity Statement*: Patient currently is requiring IV insulin for hyperglycemia however no DKA I am anticipating she will be discharged in less than 48 hours with oral antibiotics Time Spent in Patient Care: (>than 50% of time spent in counselling and/or direct pt care on unit) . 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
[2020-07-31 20:02] LABS: C Reactive Protein 25.2 mg/L (0.0-4.9); Lipase 48 U/L (13-60)
[2020-07-31 20:03] LABS: Troponin T (5th) Once 32 ng/L (0-10)
[2020-07-31] MEDS: sodium chloride 0.9% 1,000 ML 999 ML IV (21:23)
[2020-07-31] MEDS: HYDROcodone-acetaminophen 10-325 mg Tablet 1 TAB PO (21:24)
[2020-07-31] MEDS: insulin regular-human 250 UNIT in sodium chloride 0.9% 250 ML 18.2 UNIT IV (21:24)
[2020-07-31] MEDS: apixaban 5 mg Tablet PO (21:24)
[2020-07-31] MEDS: metoprolol tartrate 25 mg Tablet PO (21:24)
[2020-07-31] MEDS: clindamycin 150 mg Capsule 300 MG PO (21:25)
--- NOTE | 2020-07-31 21:38 | PC.NURSE ---
Admit note Arrived to unit via ER carlene at 2022. Pt alert and oriented X4. Arrived on 4L NC, pt reports home oxygen at 4L. POC glucose measures high . Pt reports it has been reading high on home glucose monitor for over a week. She reports not taking insulin because she did not have a result . Education provided regarding glucose monitoring, administering insulin, and when to notify provider. Pt reports generalized pain everywhere. Left breast assessed, lanced purple abscess to left breast fold. Open and draining small amount of sanguineous drainage. Pt reports having 4 home [place] in hospital gown pocket. After thorough search nurse found one on floor and one under gown against pt skin. Nurse provided education on control substances, home medications and hospital protocols. Pt receptive and understanding of information provided. Pt insisted on keeping the 2 pills found. Pills were labeled and placed in pyxis. Pt hooked up to bedside monitor, oriented to room.
--- NOTE | 2020-07-31 21:52 | PC.NURSE ---
Physician notified regarding insulin gtt. POC gluocse high. Last lab result at 1730 and was around 1300, obtaining lab result for glucose would take up to an hr and delay insulin gtt administration. Orders received to start gtt with glucose as 600, since POC gluocse can not read above 600. so there is no further delay in administration. Hrly checks to be preformed and titration to be per protocol once POC glucose is obtainable. Orders received to stop insulin gtt when glucose is 250 since patient is not in DKA.
[2020-07-31 21:53] LABS: Estmated Average Glucose 358; Hemoglobin A1C 14.1 % (4.0-6.0)
[2020-08-01] VITALS (26 sets, daily range): BP systolic 87–145; BP diastolic 59–79; PULSE 92–123; RESP 12–24; TEMP 36.7–37; O2SAT 95–99
[2020-08-01] MEDS: HYDROcodone-acetaminophen 10-325 mg Tablet 1 TAB PO ×2 (02:16→20:14)
[2020-08-01] MEDS: insulin glargine 100 units/1 mL 20 UNIT SUBCUT ×2 (02:43→07:52)
[2020-08-01 02:47] LABS: Glucose Point of Care 464 mg/dL (70-110)
[2020-08-01 02:47] LABS: Glucose Point of Care > 600 mg/dL (70-110)
[2020-08-01 02:47] LABS: Glucose Point of Care 244 mg/dL (70-110)
[2020-08-01 02:47] LABS: Glucose Point of Care > 600 mg/dL (70-110)
[2020-08-01 02:47] LABS: Glucose Point of Care 333 mg/dL (70-110)
[2020-08-01 02:47] LABS: Glucose Point of Care 576 mg/dL (70-110)
[2020-08-01 03:30] LABS: Basophils # 0.1 10^3/uL (0.0-0.1); Basophils % 0.6 %; Eosinophils # 0.3 10^3/uL (0.0-0.8); Hematocrit 41.8 % (37.0-47.0); Hemoglobin 13.5 g/dL (11.5-15.3); Lymphocytes # 1.7 10^3/uL (0.8-4.8); Lymphocytes % 11.3 %; Mean Corpuscular HGB Conc 32.3 g/dL (30.0-36.0); Mean Corpuscular Hemoglobin 25.7 pg (28.0-34.0); Mean Corpuscular Volume 79.6 fL (81-99); Mean Platelet Volume 12.1 fL (7.4-10.4); Monocytes # 1.1 10^3/uL (0.2-0.9); Monocytes % 7.7 %; Neutrophils # 11.39 10^3/uL (1.8-7.7); Neutrophils % 77.9 %; Nucleated Red Blood Cells % 0 %; Platelet Count 360 10^3/cmm (130-400); Red Blood Count 5.25 10^6/uL (4.1-5.3); Red Cell Distribution Width 17.5 % (12.1-15.1); White Blood Count 14.6 10^3/uL (4.0-10.0)
[2020-08-01 04:09] LABS: Anion Gap 17.9 (5-19); Blood Urea Nitrogen 21 mg/dL (6-20); Calcium 9.1 mg/dL (8.5-10.5); Carbon Dioxide 25 mmol/L (22-29); Chloride 89 mmol/L (98-107); Glomerular Filtration Rate 29.2 mL/min (90-130); Glucose 249 mg/dL (65-115); Osmolality Calculated 277 mOsm/kg (285-295); Potassium 3.9 mmol/L (3.5-5.1); Sodium 128 mmol/L (136-145)
[2020-08-01] MEDS: buPROPion SR (12 HR) 100 mg Tablet 200 MG PO (05:00)
[2020-08-01] MEDS: pantoprazole DR 40 mg Tablet PO (05:00)
[2020-08-01] MEDS: sertraline 100 mg Tablet PO (05:00)
[2020-08-01] MEDS: levothyroxine 25 mcg Tablet PO (05:00)
[2020-08-01 07:23] LABS: Glucose Point of Care 524 mg/dL (70-110)
[2020-08-01] MEDS: apixaban 5 mg Tablet PO ×2 (07:49→20:14)
[2020-08-01] MEDS: metoprolol tartrate 25 mg Tablet PO ×2 (07:49→20:14)
[2020-08-01] MEDS: neomycin-poly-bacitracin oint 28 gm 1 APPLIC TOPICAL ×2 (07:51→17:45)
[2020-08-01] MEDS: clindamycin 150 mg Capsule 300 MG PO ×3 (07:51→20:14)
--- NOTE | 2020-08-01 07:55 | XR_ITS ---
WS: [id number] Portable AP upright chest, 08/01/2020 Clinical Data: leukocytosis, hyperglycemia, chronic hypoxia Comparison: Portable chest, 07/04/2020. Findings: No nodules, masses or effusions are seen. The heart is enlarged.. The pulmonary vascularity is not increased. No pneumonia or pneumothorax is seen. Monitor leads are on the chest wall. XR/XR chest 1V portable [id number] Impression: Cardiomegaly.
[2020-08-01 08:07] LABS: Magnesium 2.2 mg/dL (1.7-2.3)
--- NOTE | 2020-08-01 08:37 | US_ITS ---
WS: [id number] ULTRASOUND SOFT TISSUES LEFT breast. HISTORY: left breast abscess s/p drainage, assess for any remaining abscess. COMPARISON: None available. TECHNIQUE: 2-D and color Doppler imaging is submitted. Ultrasound is directed over the LEFT breast and LEFT chest wall. There is infiltrating edema througho ut the soft tissues but there is no fluid collection. No drainable collection. Mild soft tissue thick ening. US/US soft tissue/extremity [id number] IMPRESSION: Soft tissue edema and thickening over the LEFT breast but no drainable collecti on.
[2020-08-01 09:37] LABS: Glucose Point of Care 526 mg/dL (70-110)
[2020-08-01 09:37] LABS: Glucose Point of Care 516 mg/dL (70-110)
--- NOTE | 2020-08-01 10:13 | PC.NURSE ---
Glucose Patient glucose was 526 this AM and sliding scale insulin was given. Recheck was 516. notified and given orders for NOW dose of insulin.
--- NOTE | 2020-08-01 10:33 | PM.PN ---
Subjective Subjective: Interval history: She is doign a little better. She still having pain in her breast. She states that otherwise she has been doing all right. Her sugars have been ranging between 250s-300s prior to last several days at which point she could not get a reading due to very high levels. She denies any chest pain or pressure. Denies any shortness of breath. Vitals/I&O/Wt Last Vital Signs Temp 98.6 F 08/01/20 05:00 Pulse 97 08/01/20 10:00 Resp 18 08/01/20 10:00 BP 104/73 08/01/20 08:00 Pulse Ox 98 08/01/20 07:00 07/31/20 08/01/20 08/01/20 22:59 06:59 14:59 Intake Total .. 814.094 / 834.114 240 / 240 Output Total 350 / 350 Balance .. 464.094 / 484.114 240 / 240 Weight last 48 hrs Weight 178.489 kg Weight 181.437 kg Physical Exam Const: COMMON NORMALS: no acute distress, patient oriented x3 and alert GENERAL APPEARANCE: cooperative NUTRITIONAL APPEARANCE: obese morbidly obese ORIENTATION/CONSCIOUSNESS: Yes awake HENMT: COMMON NORMALS: oropharynx normal Neck/C-Spine: COMMON NORMALS: no JVD Resp: COMMON NORMALS: normal respiratory effort and clear to auscultation bilaterally AUSCULTATION: clear to auscultation bilaterally Cardio: COMMON NORMALS: no JVD, S1 normal heart sound present, S2 normal heart sound present and No murmurs present (Cardio) RHYTHM: abnormal rhythm irregularly irregular HEART SOUNDS: S1 normal heart sound present and S2 normal heart sound present GI: COMMON NORMALS: Normal to inspection, nondistended, normoactive bowel sounds present, Soft to palpation and non-tender PALPATION: Yes Soft to palpation Extremity: COMMON NORMALS: no joint enlargement and no pedal edema Neuro: COMMON NORMALS: patient oriented x3 and moves all extremities SENSORIUM/ORIENTATION: Yes alert Skin: COMMON NORMALS: no rashes or lesions noted GENERAL SKIN EXAM: no rashes or lesions noted OTHER: Area of induration with central incision following I&D on the midportion of the underside of the breast, with erythema of the entire underside surface. No drainage or bleeding. Data : 08/01/20 02:52 08/01/20 02:52 A&P Assessment and plan (1) Abscess: Abscess and cellulitis of underside of the left breast. Status post I&D in ER with evacuation of 10 mL of drainage. She denies history of MRSA or other resistant infections. Has been admitted to the hospital twice last month. Continue clindamycin at this time. Additional assessment by ultrasound to look for any other undrained pockets. Status: Acute (2) Hyperglycemia: Continue Lantus. Increase sliding scale to aggressive. Monitor in ICU for now, in case of worsening may need to go back to insulin drip. Status: Acute (3) Chronic kidney disease, stage III (moderate): Status: Acute (4) Hyponatremia: Liberalize sodium intake. Monitor. Element of pseudohyponatremia with hyperglycemia. Status: Acute (5) Atrial fibrillation: A. fib with RVR. Check Mg. Cont metoprolol. Eliquis. Status: Acute Qualifiers: Atrial fibrillation type: longstanding persistent Qualified Code(s): I48.11 - Longstanding persistent atrial fibrillation Attestations Medical Necessity Statement*: Continue admission for assessment management of absent cellulitis with severe hyperglycemia, poorly controlled diabetes, in the setting of chronic kidney disease, morbid obesity, A. fib with RVR, hyponatremia, and severe hyperglycemia. Coding Level of Care Code Acute Guest Services Coordinator for Chg Fwd Exam Comprehensive Diagnoses Abscess L02.91 Hyperglycemia R73.9 Chronic kidney disease, stage III (moderate) N18.3 Hyponatremia E87.1 Atrial fibrillation I48.11 Atrial fibrillation type: longstanding persistent
[2020-08-01 11:15] LABS: Glucose Point of Care 568 mg/dL (70-110)
[2020-08-01 12:25] LABS: Glucose Point of Care 561 mg/dL (70-110)
--- NOTE | 2020-08-01 12:31 | PC.NURSE ---
recheck Glucose recheck was 561. notified
[2020-08-01 13:46] LABS: Glucose Point of Care 514 mg/dL (70-110)
[2020-08-01 14:56] LABS: Bilirubin Urine Neg (Negative); Blood Urine 2+ (Negative); Glucose Urine UA 4+ (Normal); Ketones Urine Negative (Negative); Nitrate Urine Negative (Negative); Protein Urine Trace (Negative); Specific Gravity, Urine 1.015 (1.005-1.030); Urine Appearance Cloudy (CLEAR); Urine Color Yellow (Yellow); pH Urine 5 (5-7)
[2020-08-01 14:57] LABS: Add Urine Microscopic? YES; Leukocyte Esterase Urine 2+ (Negative); Urobilinogen Urine Norm (Negative)
[2020-08-01 15:05] LABS: Add Urine Culture? Yes; Bacteria Urine 4+ /hpf; WBC Urine TOO NUMEROUS TO CNT /hpf (0-5)
[2020-08-01 16:54] LABS: Glucose Point of Care 273 mg/dL (70-110)
[2020-08-01 17:41] LABS: Glucose Point of Care 341 mg/dL (70-110)
[2020-08-01 17:52] LABS: Glucose Point of Care 278 mg/dL (70-110)
[2020-08-01 18:40] LABS: Glucose Point of Care 347 mg/dL (70-110)
[2020-08-01] MEDS: insulin regular-human 250 UNIT in sodium chloride 0.9% 250 ML 22.4 UNIT IV (20:10)
[2020-08-01 21:23] LABS: Glucose Point of Care 288 mg/dL (70-110)
[2020-08-02] VITALS (24 sets, daily range): BP systolic 83–111; BP diastolic 56–94; PULSE 92–137; RESP 12–31; TEMP 36.7–37.1; O2SAT 94–99
[2020-08-02 00:41] LABS: Glucose Point of Care 304 mg/dL (70-110)
[2020-08-02 00:41] LABS: Glucose Point of Care 202 mg/dL (70-110)
[2020-08-02 01:37] LABS: Glucose Point of Care 276 mg/dL (70-110)
[2020-08-02 03:27] LABS: Glucose Point of Care 197 mg/dL (70-110)
[2020-08-02 03:44] LABS: Basophils # 0.1 10^3/uL (0.0-0.1); Basophils % 0.8 %; Eosinophils # 0.4 10^3/uL (0.0-0.8); Eosinophils % 3.3 %; Hemoglobin 12.4 g/dL (11.5-15.3); Lymphocytes # 2.1 10^3/uL (0.8-4.8); Mean Corpuscular HGB Conc 31.8 g/dL (30.0-36.0); Mean Corpuscular Hemoglobin 25.6 pg (28.0-34.0); Mean Corpuscular Volume 80.4 fL (81-99); Mean Platelet Volume 12.4 fL (7.4-10.4); Monocytes # 0.7 10^3/uL (0.2-0.9); Monocytes % 6.6 %; Neutrophils # 7.76 10^3/uL (1.8-7.7); Neutrophils % 69.8 %; Nucleated Red Blood Cells % 0 %; Platelet Count 302 10^3/cmm (130-400); Red Blood Count 4.85 10^6/uL (4.1-5.3); Red Cell Distribution Width 17.3 % (12.1-15.1); White Blood Count 11.1 10^3/uL (4.0-10.0)
[2020-08-02 04:15] LABS: Alanine Aminotransferase 8 U/L (0-33); Albumin Level 3.3 g/dL (3.5-5.2); Alkaline Phosphatase 113 IU/L (35-105); Anion Gap 16.3 (5-19); Aspartate Amino Transferase 10 U/L (0-32); Blood Urea Nitrogen 34 mg/dL (6-20); Calcium 9.2 mg/dL (8.5-10.5); Carbon Dioxide 23 mmol/L (22-29); Chloride 96 mmol/L (98-107); Globulin 3.3 g/dL (1.3-4.6); Glomerular Filtration Rate 19.1 mL/min (90-130); Glucose 182 mg/dL (65-115); Osmolality Calculated 286 mOsm/kg (285-295); Potassium 3.3 mmol/L (3.5-5.1); Sodium 132 mmol/L (136-145); Total Bilirubin 0.4 mg/dL (0.15-1.2); Total Protein 6.6 g/dL (6.6-8.7)
[2020-08-02 04:31] LABS: Glucose Point of Care 175 mg/dL (70-110)
[2020-08-02 05:39] LABS: Glucose Point of Care 162 mg/dL (70-110)
[2020-08-02] MEDS: levothyroxine 25 mcg Tablet PO (05:40)
[2020-08-02] MEDS: buPROPion SR (12 HR) 100 mg Tablet 200 MG PO (05:40)
[2020-08-02] MEDS: sertraline 100 mg Tablet PO (05:41)
[2020-08-02] MEDS: pantoprazole DR 40 mg Tablet PO (05:41)
[2020-08-02 05:43] LABS: Glucose Point of Care 195 mg/dL (70-110)
[2020-08-02 05:43] LABS: Glucose Point of Care 254 mg/dL (70-110)
[2020-08-02 06:28] LABS: Glucose Point of Care 159 mg/dL (70-110)
--- NOTE | 2020-08-02 08:00 | US_ITS ---
NOTE: Report was unsigned for reason: Order was edited. Original Signature date and time was: 08/02/20 @1416 WS: [id number] RENAL ULTRASOUND URINARY BLADDER ULTRASOUND HISTORY: DWIGHT COMPARISON: None available. TECHNIQUE: 2-D and color Doppler imaging of the kidney submitted. Right kidney: 10.8 cm x 5.4 cm x 4.8 cm. Limited evaluation of the kidney. No hydronephrosis. Suspect there is a small cyst exophytic from the lower pole measuring 1.0 x 1.5 x 1.0 cm. Poorly visualized cyst. Left kidney: 11.1 cm x 4.6 cm x 4.2 cm. Poorly visualized kidney. The echogenicity may be increased. Elongated upper pole cyst measuring 4.0 x 1.8 x 2.6 cm. Aorta: Normal. Urinary Bladder: Poorly visualized and only minimally distended. [facility] US/US renal BI with PV bladder IMPRESSION: 1. Technically limited evaluation of the kidneys due to body habitus. 2. No hydronephrosis. 3. Suspect small bilateral renal cysts.
[2020-08-02] MEDS: apixaban 5 mg Tablet PO ×2 (08:17→19:57)
[2020-08-02] MEDS: metoprolol tartrate 25 mg Tablet PO ×2 (08:17→19:57)
[2020-08-02] MEDS: potassium chloride ER 20 mEq Tablet PO (08:17)
[2020-08-02] MEDS: clindamycin 150 mg Capsule 300 MG PO ×3 (08:17→20:02)
[2020-08-02] MEDS: insulin glargine 100 units/1 mL 20 UNIT SUBCUT (08:17)
[2020-08-02 08:34] LABS: Magnesium 2.2 mg/dL (1.7-2.3)
--- NOTE | 2020-08-02 08:39 | PM.PN ---
Subjective Subjective: Interval history: Overall she is feeling better than when she came in. Pain under her left breast is improving. She is having some back pain which is chronic, nothing different from usual. Denies any flank pain. No chest pain or pressure, no trouble breathing. Vitals/I&O/Wt Last Vital Signs Temp 98.0 F 08/02/20 05:00 Pulse 99 08/02/20 07:00 Resp 12 08/02/20 07:00 BP 104/56 08/02/20 07:00 Pulse Ox 97 08/02/20 05:00 08/01/20 08/02/20 08/02/20 22:59 06:59 14:59 Intake Total 666.170 / 1018.583 137.55 / 1156.133 21.653 / 21.653 Output Total 1050 / 1050 200 / 1250 Balance -383.830 / -31.417 -62.45 / -93.867 21.653 / 21.653 Weight last 48 hrs Weight 178.489 kg Weight 181.437 kg Physical Exam Const: COMMON NORMALS: no acute distress, patient oriented x3 and alert GENERAL APPEARANCE: cooperative NUTRITIONAL APPEARANCE: obese morbidly obese ORIENTATION/CONSCIOUSNESS: Yes awake HENMT: COMMON NORMALS: oropharynx normal Neck/C-Spine: COMMON NORMALS: no JVD Resp: COMMON NORMALS: normal respiratory effort and clear to auscultation bilaterally AUSCULTATION: clear to auscultation bilaterally Cardio: COMMON NORMALS: no JVD, S1 normal heart sound present, S2 normal heart sound present and No murmurs present (Cardio) RHYTHM: abnormal rhythm irregularly irregular HEART SOUNDS: S1 normal heart sound present and S2 normal heart sound present GI: COMMON NORMALS: Normal to inspection, nondistended, normoactive bowel sounds present, Soft to palpation and non-tender PALPATION: Yes Soft to palpation Extremity: COMMON NORMALS: no joint enlargement and no pedal edema Neuro: COMMON NORMALS: patient oriented x3 and moves all extremities SENSORIUM/ORIENTATION: Yes alert Skin: COMMON NORMALS: no rashes or lesions noted GENERAL SKIN EXAM: no rashes or lesions noted OTHER: Good improvement in area of induration with central incision following I&D on the midportion of the underside of the breast, with shrinking and less intense erythema of the underside surface. Minimal purulent drainage . Data : 08/02/20 03:01 08/02/20 03:01 A&P Assessment and plan (1) Abscess: Abscess and cellulitis of the left breast. This is improving. On follow-up ultrasonography there is no further/leftover collections. There is soft tissue and superficial edema. On examination cellulitis is improving. She is having less tenderness. Unfortunately no cultures available from the I&D. There is minimal amount of drainage from I&D site. Will attempt to obtain a culture sample. Continue at this time clindamycin empirically. Status: Acute (2) Hyperglycemia: This is significantly improved. We will restart Lantus. Discontinue insulin drip 2 hours after the dose. Resume sliding scale insulin. Monitor glucose. Consistent carbohydrate diet. For now monitor in ICU given we had to restart insulin drip yesterday after initially appeared it could be discontinued. Status: Acute (3) DWIGHT (acute kidney injury): Creatinine 2.6. BUN 34. She says she is not used Voltaren in several months. We have held off her Lasix while in the hospital. She does not appear dehydrated. Blood pressure is somewhat soft, but meningeal pressure is 77. Monitor blood pressures. We will assess EUS kidneys, bladder to exclude obstruction. We will give a small fluid challenge bolus. Status: Acute (4) UTI (urinary tract infection): UA suggestive of UTI. We will add Rocephin. Follow-up urine culture. Ultrasound assessment as above to rule out obstruction. Status: Acute (5) Atrial fibrillation: For the most part heart rates have stayed below 110 overnight, although this morning they are somewhat higher, increasing to 120-130 range. She had just received her morning metoprolol. Currently a little bit better around 110-115. Monitor after metoprolol dose. Check magnesium. A. fib with RVR. Check Mg. Cont metoprolol. Eliquis. Status: Acute Qualifiers: Atrial fibrillation type: longstanding persistent Qualified Code(s): I48.11 - Longstanding persistent atrial fibrillation (6) Hyponatremia: Acute hyponatremia improved. Liberalize sodium intake. Monitor. Element of pseudohyponatremia with hyperglycemia. Status: Acute (7) Chronic kidney disease, stage III (moderate): Status: Acute (8) Morbid obesity: Status: Acute Attestations Medical Necessity Statement*: Continue admission for assessment management of abscess with cellulitis, complicated by severe hyperglycemia requiring insulin drip, UTI, A. fib with RVR, DWIGHT, in the setting of multiple additional comorbidities as above. Coding Level of Care Code Acute Digital Content Coordinator for Chg Fwd Diagnoses Abscess L02.91 Hyperglycemia R73.9 DWIGHT (acute kidney injury) N17.9 UTI (urinary tract infection) N39.0 Atrial fibrillation I48.11 Atrial fibrillation type: longstanding persistent Hyponatremia E87.1 Chronic kidney disease, stage III (moderate) N18.3 Morbid obesity E66.01
[2020-08-02] MEDS: cefTRIAXone 1,000 MG in sodium chloride 0.9% (plus) 50 ML 100 MG IV (08:47)
[2020-08-02] MEDS: neomycin-poly-bacitracin oint 28 gm 1 APPLIC TOPICAL ×2 (08:48→18:01)
[2020-08-02 09:16] LABS: Glucose Point of Care 315 mg/dL (70-110)
[2020-08-02 09:16] LABS: Glucose Point of Care 196 mg/dL (70-110)
[2020-08-02 09:16] LABS: Glucose Point of Care 124 mg/dL (70-110)
[2020-08-02 10:13] LABS: Glucose Point of Care 374 mg/dL (70-110)
[2020-08-02] MEDS: insulin regular-human 250 UNIT in sodium chloride 0.9% 250 ML 47.6 UNIT IV (10:36)
[2020-08-02 11:05] LABS: Glucose Point of Care 378 mg/dL (70-110)
--- NOTE | 2020-08-02 11:07 | PC.NURSE ---
Orders given per MD to discontinue insulin drip 2 hours following administration of lantus. Contacted doctor during this time to inform of increasing blood glucose. Doctor orders to continue insulin drip per protocol.
[2020-08-02 11:52] LABS: Glucose Point of Care 371 mg/dL (70-110)
--- NOTE | 2020-08-02 12:15 | PC.RESP ---
Pulmonary Rehab information sent to patient.
[2020-08-02 13:16] LABS: Glucose Point of Care 306 mg/dL (70-110)
[2020-08-02 14:25] LABS: Glucose Point of Care 264 mg/dL (70-110)
[2020-08-02 15:21] LABS: Glucose Point of Care 231 mg/dL (70-110)
[2020-08-02 16:04] LABS: Glucose Point of Care 203 mg/dL (70-110)
[2020-08-02 17:08] LABS: Glucose Point of Care 163 mg/dL (70-110)
[2020-08-02] MEDS: insulin regular-human 250 UNIT in sodium chloride 0.9% 250 ML 31.6 UNIT IV (18:02)
[2020-08-02 18:40] LABS: Glucose Point of Care 209 mg/dL (70-110)
[2020-08-02 18:52] LABS: Glucose Point of Care 191 mg/dL (70-110)
[2020-08-02] MEDS: HYDROcodone-acetaminophen 10-325 mg Tablet 1 TAB PO (19:59)
[2020-08-02] MEDS: insulin glargine 100 units/1 mL 15 UNIT SUBCUT (20:01)
[2020-08-03] VITALS (27 sets, daily range): BP systolic 82–140; BP diastolic 48–90; PULSE 80–112; RESP 11–22; TEMP 36.7–37.3; O2SAT 93–100
[2020-08-03] MEDS: insulin regular-human 250 UNIT in sodium chloride 0.9% 250 ML 23 UNIT IV (01:06)
[2020-08-03 04:27] LABS: Basophils # 0.1 10^3/uL (0.0-0.1); Basophils % 0.7 %; Eosinophils # 0.3 10^3/uL (0.0-0.8); Eosinophils % 2.9 %; Hematocrit 41.3 % (37.0-47.0); Hemoglobin 12.5 g/dL (11.5-15.3); Lymphocytes # 1.7 10^3/uL (0.8-4.8); Lymphocytes % 15.8 %; Mean Corpuscular HGB Conc 30.3 g/dL (30.0-36.0); Mean Corpuscular Hemoglobin 25.5 pg (28.0-34.0); Mean Corpuscular Volume 84.3 fL (81-99); Mean Platelet Volume 12.6 fL (7.4-10.4); Monocytes # 0.7 10^3/uL (0.2-0.9); Monocytes % 6.7 %; Neutrophils # 8.02 10^3/uL (1.8-7.7); Neutrophils % 73.4 %; Nucleated Red Blood Cells % 0 %; Platelet Count 230 10^3/cmm (130-400); Red Cell Distribution Width 17.8 % (12.1-15.1); White Blood Count 10.9 10^3/uL (4.0-10.0)
[2020-08-03] MEDS: sertraline 100 mg Tablet PO (04:40)
[2020-08-03] MEDS: buPROPion SR (12 HR) 100 mg Tablet 200 MG PO (04:40)
[2020-08-03] MEDS: levothyroxine 25 mcg Tablet PO (04:41)
[2020-08-03] MEDS: pantoprazole DR 40 mg Tablet PO (04:41)
[2020-08-03 06:29] LABS: Alanine Aminotransferase 9 U/L (0-33); Albumin Level 3.2 g/dL (3.5-5.2); Alkaline Phosphatase 106 IU/L (35-105); Anion Gap 17.8 (5-19); Aspartate Amino Transferase 10 U/L (0-32); Blood Urea Nitrogen 38 mg/dL (6-20); Calcium 8.9 mg/dL (8.5-10.5); Carbon Dioxide 21 mmol/L (22-29); Chloride 100 mmol/L (98-107); Globulin 3.1 g/dL (1.3-4.6); Glucose 164 mg/dL (65-115); Osmolality Calculated 293 mOsm/kg (285-295); Potassium 3.8 mmol/L (3.5-5.1); Sodium 135 mmol/L (136-145); Total Bilirubin 0.4 mg/dL (0.15-1.2); Total Protein 6.3 g/dL (6.6-8.7)
[2020-08-03 06:59] LABS: Glucose Point of Care 178 mg/dL (70-110)
[2020-08-03 06:59] LABS: Glucose Point of Care 214 mg/dL (70-110)
[2020-08-03 06:59] LABS: Glucose Point of Care 200 mg/dL (70-110)
[2020-08-03 06:59] LABS: Glucose Point of Care 202 mg/dL (70-110)
[2020-08-03 06:59] LABS: Glucose Point of Care 159 mg/dL (70-110)
[2020-08-03 06:59] LABS: Glucose Point of Care 175 mg/dL (70-110)
[2020-08-03 07:00] LABS: Glucose Point of Care 181 mg/dL (70-110)
[2020-08-03 07:00] LABS: Glucose Point of Care 191 mg/dL (70-110)
[2020-08-03 07:00] LABS: Glucose Point of Care 129 mg/dL (70-110)
[2020-08-03 07:00] LABS: Glucose Point of Care 174 mg/dL (70-110)
[2020-08-03 07:00] LABS: Glucose Point of Care 171 mg/dL (70-110)
[2020-08-03 07:00] LABS: Glucose Point of Care 130 mg/dL (70-110)
[2020-08-03 08:43] LABS: Glucose Point of Care 170 mg/dL (70-110)
[2020-08-03] MEDS: cefTRIAXone 1,000 MG in sodium chloride 0.9% (plus) 50 ML 100 MG IV (08:49)
[2020-08-03] MEDS: apixaban 5 mg Tablet PO ×2 (08:50→20:38)
[2020-08-03] MEDS: metoprolol tartrate 25 mg Tablet PO (08:50)
[2020-08-03] MEDS: clindamycin 150 mg Capsule 300 MG PO ×3 (08:50→20:38)
[2020-08-03] MEDS: neomycin-poly-bacitracin oint 28 gm 1 APPLIC TOPICAL ×2 (08:51→18:13)
[2020-08-03 09:19] LABS: Glucose Point of Care 196 mg/dL (70-110)
--- NOTE | 2020-08-03 10:26 | P.PN_ITS ---
Subjective Subjective: Interval history: Subjectively she is feeling better. She denies any discomfort. Discomfort in her breast has been almost completely resolving. We have had significant difficulty weaning off the insulin drip. She this morning is requiring 28 units/h of insulin. Discussed with her, and she states that at home previously was using 10 units of Lantus once daily. She states that she had not measured her glucose for a while as she lost her glucometer. Then she borrowed her 's glucometer in the last few days, and that is when she was seeing reading errors due to very high numbers. Vitals/I&O/Wt Last Vital Signs Temp 98.1 F 08/03/20 08:00 Pulse 103 H 08/03/20 09:19 Resp 16 08/03/20 09:16 BP 107/48 08/03/20 09:00 Pulse Ox 97 08/03/20 09:16 08/02/20 08/03/20 08/03/20 22:59 06:59 14:59 Intake Total 1045.545 / 1977.923 419.85 / 2397.773 595.12 / 595.12 Output Total 525 / 975 325 / 1300 Balance 520.545 / 1002.923 94.85 / 1097.773 595.12 / 595.12 Physical Exam Const: COMMON NORMALS: no acute distress, patient oriented x3 and alert GENERAL APPEARANCE: cooperative NUTRITIONAL APPEARANCE: obese morbidly obese ORIENTATION/CONSCIOUSNESS: Yes awake HENMT: COMMON NORMALS: oropharynx normal Neck/C-Spine: COMMON NORMALS: no JVD Resp: COMMON NORMALS: normal respiratory effort and clear to auscultation bilaterally AUSCULTATION: clear to auscultation bilaterally Cardio: COMMON NORMALS: no JVD, S1 normal heart sound present, S2 normal heart sound present and No murmurs present (Cardio) RHYTHM: abnormal rhythm irregularly irregular HEART SOUNDS: S1 normal heart sound present and S2 normal heart sound present GI: COMMON NORMALS: Normal to inspection, nondistended, normoactive bowel sounds present, Soft to palpation and non-tender PALPATION: Yes Soft to palpation Extremity: COMMON NORMALS: no joint enlargement and no pedal edema Neuro: COMMON NORMALS: patient oriented x3 and moves all extremities SENSORIUM/ORIENTATION: Yes alert Skin: COMMON NORMALS: no rashes or lesions noted GENERAL SKIN EXAM: no rashes or lesions noted OTHER: Good improvement in area of induration with central incision following I&D on the midportion of the underside of the breast, with shrinking and less intense erythema of the underside surface. Minimal purulent drainage . Data : 08/03/20 03:50 08/03/20 05:54 Micro: Microbiology 08/01/20 13:57 Urine Culture - Final Urine,Clean Catch Escherichia coli 08/02/20 14:03 Gram Stain - Final Breast - Wound A&P Assessment and plan (1) Hyperglycemia: Very severe hyperglycemia on presentation, with difficulty weaning off insulin drip, still requiring very high amounts of insulin in contrast to just using 10 units of Lantus previously. Currently she would require at least 135 units Lantus alone by very conservative estimates based on the rates she has been receiving. Overall trend appears has been somewhat decreasing since admission, although this morning rate of infusion had to go up to 28 units/h. Discussed with her options in terms of switching to Lantus, although she is somewhat concerned about switch to a very high dose, and risk of hypoglycemia. For now we will give her Lantus 35 units and continue insulin drip, gradually assess for further improvement in insulin sensitivity to avoid severe hypo glycemia given her infection appears to be resolving in her breast, as well as UTI is being treated. This is significantly improved. We will restart Lantus. Discontinue insulin drip 2 hours after the dose. Resume sliding scale insulin. Monitor glucose. Consistent carbohydrate diet. For now monitor in ICU given we had to restart insulin drip yesterday after initially appeared it could be discontinued. Status: Acute (2) Abscess: Nothing on gram stain from swab of drainage 08/02. Continue clindamycin. Abscess and cellulitis of the left breast. This is improving. On follow-up ultrasonography there is no further/leftover collections with noted soft tissue and superficial edema. On examination this is improving and almost completely resolving currently. Status: Acute (3) DWIGHT (acute kidney injury): With mild improvement. No obstruction on ultrasonography. Monitor for now. Blood pressure sometimes soft, monitor in ICU, treat in case mean arterial pressures dropping below 65. No chest pain pressure. No sign of sepsis. Perhaps some hypovolemia, will continue to hold her Lasix for now. Give a dose of albumin. Avoid fluid overload with history of CHF. She says she has not used Voltaren in several months. We have held off her Lasix while in the hospital. Status: Acute (4) UTI (urinary tract infection): E coli UTI. Rocephin. Ultrasound without obstruction. Status: Acute (5) Atrial fibrillation: Heart rates for the most part around 90-110. This morning somewhat higher prior to receiving her morning metoprolol. Monitor. Magnesium is not low. Will give 20 mg of potassium. A. fib with RVR. Cont metoprolol. Eliquis. Status: Acute Qualifiers: Atrial fibrillation type: longstanding persistent Qualified Code(s): I48.11 - Longstanding persistent atrial fibrillation (6) Hyponatremia: Acute hyponatremia improved. Liberalize sodium intake. Monitor. Element of pseudohyponatremia with hyperglycemia. Status: Acute (7) Chronic kidney disease, stage III (moderate): Status: Acute (8) Morbid obesity: Status: Acute Attestations Medical Necessity Statement*: Continue admission for assessment management of severe hyperglycemia, insulin resistance, soft blood pressures, kidney injury, A. fib with RVR, UTI, left breast abscess and cellulitis. Coding Level of Care Code Acute Metal Numerical Control Programmer for Chg Fwd Exam Comprehensive Diagnoses Hyperglycemia R73.9 Abscess L02.91 DWIGHT (acute kidney injury) N17.9 UTI (urinary tract infection) N39.0 Atrial fibrillation I48.11 Atrial fibrillation type: longstanding persistent Hyponatremia E87.1 Chronic kidney disease, stage III (moderate) N18.3 Morbid obesity E66.01
[2020-08-03] MEDS: potassium chloride oral liq 20 mEq/15 mL UDC PO (10:37)
[2020-08-03] MEDS: insulin glargine 100 units/1 mL 35 UNIT SUBCUT (10:38)
[2020-08-03 10:44] LABS: Glucose Point of Care 232 mg/dL (70-110)
[2020-08-03 11:29] LABS: Glucose Point of Care 230 mg/dL (70-110)
[2020-08-03 12:42] LABS: Glucose Point of Care 174 mg/dL (70-110)
[2020-08-03] MEDS: insulin regular-human 250 UNIT in sodium chloride 0.9% 250 ML 26.2 UNIT IV ×2 (13:32→20:39)
[2020-08-03 13:38] LABS: Glucose Point of Care 243 mg/dL (70-110)
[2020-08-03 14:39] LABS: Glucose Point of Care 200 mg/dL (70-110)
[2020-08-03 15:43] LABS: Glucose Point of Care 172 mg/dL (70-110)
[2020-08-03] MEDS: ondansetron 2 mg/ML SDV 2 mL 4 MG IVP (16:43)
[2020-08-03 16:53] LABS: Glucose Point of Care 159 mg/dL (70-110)
[2020-08-03 17:35] LABS: Glucose Point of Care 123 mg/dL (70-110)
[2020-08-03] MEDS: nystatin cream 30 gm 1 APPLIC TOPICAL (18:13)
[2020-08-03 18:23] LABS: Glucose Point of Care 174 mg/dL (70-110)
[2020-08-03] MEDS: HYDROcodone-acetaminophen 10-325 mg Tablet 1 TAB PO (20:39)
[2020-08-04] VITALS (27 sets, daily range): BP systolic 92–129; BP diastolic 47–76; PULSE 83–112; RESP 12–28; TEMP 36.9–37.1; O2SAT 93–100
[2020-08-04 04:43] LABS: Basophils % 0.6 %; Eosinophils # 0.3 10^3/uL (0.0-0.8); Hematocrit 36.7 % (37.0-47.0); Lymphocytes # 1.2 10^3/uL (0.8-4.8); Lymphocytes % 18.4 %; Mean Corpuscular Hemoglobin 25.8 pg (28.0-34.0); Mean Corpuscular Volume 85.9 fL (81-99); Monocytes # 0.6 10^3/uL (0.2-0.9); Monocytes % 9.1 %; Neutrophils # 4.38 10^3/uL (1.8-7.7); Neutrophils % 67.3 %; Nucleated Red Blood Cells % 0 %; Platelet Count 216 10^3/cmm (130-400); Red Blood Count 4.27 10^6/uL (4.1-5.3); Red Cell Distribution Width 18.3 % (12.1-15.1); White Blood Count 6.5 10^3/uL (4.0-10.0)
[2020-08-04] MEDS: sertraline 100 mg Tablet PO (04:52)
[2020-08-04] MEDS: levothyroxine 25 mcg Tablet PO (04:52)
[2020-08-04] MEDS: pantoprazole DR 40 mg Tablet PO (04:52)
[2020-08-04] MEDS: buPROPion SR (12 HR) 100 mg Tablet 200 MG PO (05:09)
[2020-08-04 05:14] LABS: Alanine Aminotransferase 9 U/L (0-33); Albumin Level 3.2 g/dL (3.5-5.2); Alkaline Phosphatase 90 IU/L (35-105); Anion Gap 14.5 (5-19); Aspartate Amino Transferase 12 U/L (0-32); Blood Urea Nitrogen 35 mg/dL (6-20); Calcium 8.7 mg/dL (8.5-10.5); Carbon Dioxide 21 mmol/L (22-29); Chloride 104 mmol/L (98-107); Globulin 2.9 g/dL (1.3-4.6); Glucose 163 mg/dL (65-115); Osmolality Calculated 294 mOsm/kg (285-295); Potassium 3.5 mmol/L (3.5-5.1); Sodium 136 mmol/L (136-145); Total Bilirubin 0.4 mg/dL (0.15-1.2); Total Protein 6.1 g/dL (6.6-8.7)
[2020-08-04 06:02] LABS: Glucose Point of Care 170 mg/dL (70-110)
[2020-08-04 06:02] LABS: Glucose Point of Care 205 mg/dL (70-110)
[2020-08-04 06:02] LABS: Glucose Point of Care 135 mg/dL (70-110)
[2020-08-04 06:02] LABS: Glucose Point of Care 173 mg/dL (70-110)
[2020-08-04 06:02] LABS: Glucose Point of Care 147 mg/dL (70-110)
[2020-08-04 06:02] LABS: Glucose Point of Care 169 mg/dL (70-110)
[2020-08-04 06:02] LABS: Glucose Point of Care 171 mg/dL (70-110)
[2020-08-04 06:02] LABS: Glucose Point of Care 135 mg/dL (70-110)
[2020-08-04 06:08] LABS: Glucose Point of Care 137 mg/dL (70-110)
[2020-08-04 06:08] LABS: Glucose Point of Care 144 mg/dL (70-110)
[2020-08-04 06:54] LABS: Glucose Point of Care 140 mg/dL (70-110)
[2020-08-04 06:54] LABS: Glucose Point of Care 133 mg/dL (70-110)
[2020-08-04 08:25] LABS: Glucose Point of Care 194 mg/dL (70-110)
[2020-08-04] MEDS: metoprolol tartrate 25 mg Tablet PO ×2 (09:15→20:02)
[2020-08-04] MEDS: cefTRIAXone 1,000 MG in sodium chloride 0.9% (plus) 50 ML 100 MG IV (09:15)
[2020-08-04] MEDS: clindamycin 150 mg Capsule 300 MG PO ×3 (09:15→20:02)
[2020-08-04] MEDS: apixaban 5 mg Tablet PO ×2 (09:15→20:02)
[2020-08-04] MEDS: insulin glargine 100 units/1 mL 60 UNIT SUBCUT (09:15)
[2020-08-04] MEDS: neomycin-poly-bacitracin oint 28 gm 1 APPLIC TOPICAL ×2 (09:17→17:00)
[2020-08-04] MEDS: nystatin cream 30 gm 1 APPLIC TOPICAL (09:17)
[2020-08-04 09:54] LABS: Glucose Point of Care 231 mg/dL (70-110)
[2020-08-04 10:45] LABS: Glucose Point of Care 203 mg/dL (70-110)
--- NOTE | 2020-08-04 10:46 | PC.NURSE ---
Insulin gtt continued past MAR titration due to infusion being infused but fluid still in bag. Rate at 27 units/hr. See paper chart.
--- NOTE | 2020-08-04 11:01 | P.PN_ITS ---
Subjective Subjective: Interval history: She is feeling better. Not bothered by discomfort in the left breast. Her blood pressure has been somewhat fluctuating, she attributes this to receiving some bad news about her mother recently being diagnosed with skin cancer. She says she is otherwise doing well. Vitals/I&O/Wt Last Vital Signs Temp 98.5 F 08/04/20 04:00 Pulse 101 H 08/04/20 10:00 Resp 17 08/04/20 10:00 BP 110/61 08/04/20 10:00 Pulse Ox 93 08/04/20 10:00 08/03/20 08/04/20 08/04/20 22:59 06:59 14:59 Intake Total 739.604 / 1958.157 532.8 / 2490.957 54.130 / 54.130 Output Total 1850 / 2200 525 / 2725 500 / 500 Balance -1110.396 / -241.843 7.8 / -234.043 -445.870 / -445.870 Physical Exam Const: COMMON NORMALS: no acute distress, patient oriented x3 and alert GENERAL APPEARANCE: cooperative NUTRITIONAL APPEARANCE: obese morbidly obese ORIENTATION/CONSCIOUSNESS: Yes awake HENMT: COMMON NORMALS: oropharynx normal Neck/C-Spine: COMMON NORMALS: no JVD Resp: COMMON NORMALS: normal respiratory effort and clear to auscultation bilaterally AUSCULTATION: clear to auscultation bilaterally Cardio: COMMON NORMALS: no JVD, S1 normal heart sound present, S2 normal heart sound present and No murmurs present (Cardio) RHYTHM: abnormal rhythm irregularly irregular HEART SOUNDS: S1 normal heart sound present and S2 normal heart sound present GI: COMMON NORMALS: Normal to inspection, nondistended, normoactive bowel sounds present, Soft to palpation and non-tender PALPATION: Yes Soft to palpation Extremity: COMMON NORMALS: no joint enlargement and no pedal edema Neuro: COMMON NORMALS: patient oriented x3 and moves all extremities SENSORIUM/ORIENTATION: Yes alert Skin: COMMON NORMALS: no rashes or lesions noted GENERAL SKIN EXAM: no rashes or lesions noted OTHER: Resolving erythema, resolved induration with central incision following I&D on the midportion of the underside of the breast. No drainage. Data : 08/04/20 04:00 08/04/20 04:00 Micro: Microbiology 08/02/20 14:03 Gram Stain - Final Breast - Wound Wound Culture - Preliminary Coagulase negativ staphylococc 08/01/20 13:57 Urine Culture - Final Urine,Clean Catch Escherichia coli A&P Assessment and plan (1) Hyperglycemia: Persistent severe hyperglycemia, high insulin requirement. Prior to current admission she was taking 10 units of Lantus in the morning, although has not been checking her sugars reliably recently due to a misplaced glucometer. We have increased her Lantus dose this morning to 60 units, avoiding extremely significant increase in Lantus dose as she has been concern regarding hyp oglycemia. This morning she is receiving 25 units/h of insulin drip. With the higher dose of Lantus, will attempt to wean down on the drip requirement. Subsequently either wean off with aggressive sliding scale, or increase Lantus again for tomorrow. Cellulitis and abscess appears to be resolving. UTI is being treated. Consistent carbohydrate diet. Status: Acute (2) Abscess: Coag negative staph on culture from swab of drainage 08/02 although obtained after several days of antibiotics. Continue clindamycin. Abscess and cellulitis of the left breast. This is improving. On follow-up ultrasonography there is no further/leftover collections with noted soft tissue and superficial edema. On examination this is improving and almost completely resolving currently. Status: Acute (3) DWIGHT (acute kidney injury): Renal function stabilized. Still in DWIGHT on CKD, creatinine 2.3. There has been some fluctuation of blood pressures, which I am not sure perhaps have contributed to prerenal renal failure. She states she has received some bad news recently, and is attributing some of the fluctuations to that. It appears some of it may have been fluctuating even before, however, with thought of possible hypovolemia after severe hyperglycemia. Blood pressures now are little bit better. If worsening again, consider additional small bolus. Avoid excessive fluid due to history of CHF. Hold her Lasix for now. No obstruction on ultrasonography. Monitor for now. She says she has not used Voltaren in several months. Status: Acute (4) UTI (urinary tract infection): E coli UTI. Rocephin. Ultrasound without obstruction. Status: Acute (5) Atrial fibrillation: Heart rates for the most part around 90-110 except in the mornings before receiving metoprolol getting up to 120s. Continue to monitor. Continue to treat infections. We will give additional 20 mg of potassium. A. fib with RVR. Cont metoprolol. Eliquis. Status: Acute Qualifiers: Atrial fibrillation type: longstanding persistent Qualified Code(s): I48.11 - Longstanding persistent atrial fibrillation (6) Hyponatremia: Acute hyponatremia improved. Liberalize sodium intake. Monitor. Element of pseudohyponatremia with hyperglycemia. Status: Acute (7) Chronic kidney disease, stage III (moderate): Status: Acute (8) Morbid obesity: Status: Acute Attestations Medical Necessity Statement*: Continue admission for optimization of insulin therapy for very severe hyperglycemia, transition to subcutaneous insulin, treatment of underlying infections, in the setting of acute kidney injury, atrial fibrillation, and other comorbidities. Coding Level of Care Code Acute Production Underwriter for g Fwd Diagnoses Hyperglycemia R73.9 Abscess L02.91 DWIGHT (acute kidney injury) N17.9 UTI (urinary tract infection) N39.0 Atrial fibrillation I48.11 Atrial fibrillation type: longstanding persistent Hyponatremia E87.1 Chronic kidney disease, stage III (moderate) N18.3 Morbid obesity E66.01
[2020-08-04 12:08] LABS: Glucose Point of Care 191 mg/dL (70-110)
--- NOTE | 2020-08-04 12:14 | PC.SOCIAL ---
IMM Update Pg.2 of IMM Updated and reviewed with patient who verbalized understanding. Copy provided.
[2020-08-04] MEDS: potassium chloride ER 20 mEq Tablet PO (12:27)
[2020-08-04 13:07] LABS: Glucose Point of Care 177 mg/dL (70-110)
[2020-08-04 14:09] LABS: Glucose Point of Care 145 mg/dL (70-110)
[2020-08-04] MEDS: insulin regular-human 250 UNIT in sodium chloride 0.9% 250 ML 16.2 UNIT IV (14:09)
--- NOTE | 2020-08-04 14:18 | PC.NURSE ---
visitor at bedside, brought patient large bag of belongings.
[2020-08-04 15:05] LABS: Glucose Point of Care 165 mg/dL (70-110)
--- NOTE | 2020-08-04 15:34 | PC.NURSE ---
Extra food Patient's visitor left and came back with extra food (sweets) for patient. Patient again educated on diabetic diet, insulin drip, and compliance.
[2020-08-04 16:06] LABS: Glucose Point of Care 333 mg/dL (70-110)
[2020-08-04] MEDS: HYDROcodone-acetaminophen 10-325 mg Tablet 1 TAB PO (16:56)
[2020-08-04 16:57] LABS: Glucose Point of Care 167 mg/dL (70-110)
[2020-08-04 18:05] LABS: Glucose Point of Care 147 mg/dL (70-110)
--- NOTE | 2020-08-04 18:39 | PC.NURSE ---
Insulin gtt Called Dr. Echols to update on insulin gtt, still at 15u/h. Notified that patient is not compliant with diet and having visitor bring in extra food. Will leave patient on insulin gtt tonight, plan to increase Lantus to 100 units in the AM. Patient again educated on compliance and diabetic diet.
[2020-08-04 18:53] LABS: Glucose Point of Care 166 mg/dL (70-110)
[2020-08-05] VITALS (28 sets, daily range): BP systolic 92–115; BP diastolic 52–86; PULSE 72–110; RESP 11–26; TEMP 36.7–36.8; O2SAT 96–99
[2020-08-05] MEDS: insulin regular-human 250 UNIT in sodium chloride 0.9% 250 ML 31.1 UNIT IV (01:52)
[2020-08-05] MEDS: levothyroxine 25 mcg Tablet PO (05:05)
[2020-08-05] MEDS: HYDROcodone-acetaminophen 10-325 mg Tablet 1 TAB PO (05:05)
[2020-08-05] MEDS: pantoprazole DR 40 mg Tablet PO (05:05)
[2020-08-05] MEDS: buPROPion SR (12 HR) 100 mg Tablet 200 MG PO (05:05)
[2020-08-05] MEDS: sertraline 100 mg Tablet PO (05:05)
[2020-08-05] MEDS: cefTRIAXone 1,000 MG in sodium chloride 0.9% (plus) 50 ML 100 MG IV (07:49)
[2020-08-05] MEDS: apixaban 5 mg Tablet PO ×2 (07:58→20:04)
[2020-08-05] MEDS: metoprolol tartrate 25 mg Tablet PO ×2 (07:58→20:05)
[2020-08-05] MEDS: clindamycin 150 mg Capsule 300 MG PO ×3 (08:52→20:06)
[2020-08-05] MEDS: insulin glargine 100 units/1 mL 60 UNIT SUBCUT (08:53)
[2020-08-05] MEDS: nystatin cream 30 gm 1 APPLIC TOPICAL (08:54)
[2020-08-05] MEDS: neomycin-poly-bacitracin oint 28 gm 1 APPLIC TOPICAL ×2 (08:54→17:59)
--- NOTE | 2020-08-05 09:04 | PC.CHAP ---
Pastoral Care Encounter/Spiritual Assessment Type of Contact [] Declined circular sawyer stone visit [] Patient/Family/Request visit [] Outpatient visit [] Follow-up visit [] Physician referral [] Code/Alert [x] Routine visit [] Staff referral [] Actively dying [] Patient sleeping [] Family support [] [] Out of room [] Palliative care [] [] Receiving care in room [] Pre-surgical visit [] Trauma [] Long length of stay [x] ICU visit [x] Other: standing outside room Relational/Emotional Strength [] Patient feels connected with others/family/visitors/staff [] Distress [] Loneliness/isolation [] Abandonment Spirituality of Patient [] Person of [place] [] Attends Cheondoism of their [place] [] Believes in Prayer [] Reads Bible or Methodist materials [] There are Spiritual issues to be addressed Clinical Account Manager Interventions [x] Prayer [] Active listening [] Non-anxious presence [] Spiritual/emotional support [] Crisis/trauma care [] Spiritual counseling [] Bereavement support [] Provided bereavement packet [] Provided Bible/devotional materials [] Provided toy/stuffed animal, coloring book to patient or family member [] Provided Communion [] Anointing/[place] [] Salvation [x] Completed spiritual assessment [] Other: Impact on Illness or Injury [] Angry [] Fearful [] Anxious [] Often cries [] Exhaustion [] Unable to work [] Unable to attend methodist [] Unable to walk/stand [] Unable to read [] Unable to drive [] Unable to eat/drink [] Unable to sleep [] Unable to be with family [] Patient intubated [] Other: Summary Time spent with patient
[2020-08-05] MEDS: insulin glargine 100 units/1 mL 40 UNIT SUBCUT (10:44)
--- NOTE | 2020-08-05 11:01 | P.PN_ITS ---
Subjective Subjective: Interval history: insulin glargine increased to 100U daily from 60U daily, turned off insulin insulin and started with s/c overlap. Cellulitis over left breast resolved. Afebrile, hemodynamically stable Medications: Reviewed: Yes Vitals/I&O/Wt Last Vital Signs Temp 98.1 F 08/05/20 04:00 Pulse 79 08/05/20 10:00 Resp 12 08/05/20 10:00 BP 102/63 08/05/20 10:00 Pulse Ox 96 08/05/20 08:34 08/04/20 08/05/20 08/05/20 22:59 06:59 14:59 Intake Total 972.639 / 1196.769 393.708 / 1590.477 530 / 530 Output Total 450 / 950 650 / 650 Balance 522.639 / 246.769 393.708 / 640.477 -120 / -120 Physical Exam Narrative: EXAM NARRATIVE: GEN: Awake, alert and oriented, no acute distress CVS: S1S2 N RS: CTA B/L Abd: Soft, nt/nd , bs+ FIRESTOPPER INSTALLER: no focal neuro deficits ext: significant intertrigo over B/L axillary folds and groin folds Data : 08/04/20 04:00 08/04/20 04:00 Micro: Microbiology 08/02/20 14:03 Gram Stain - Final Breast - Wound Wound Culture - Final Staphylococcus epidermidis A&P Assessment and plan (1) Hyperglycemia: Persistent severe hyperglycemia, high insulin requirement. Insulin requirement up to 35 units per hour this morning Increase insulin lnatus to 100 U today D/c IV insuin infusion , start overlap with sliding scale Cellulitis and abscess appears to be resolving. abscess cx with S.epidermidis, likely colonizer. Started clindamycin 300 TID on 07/31, will stop tomorrow after a 7 day course. Consistent carbohydrate diet. Status: Acute (2) Abscess: Coag negative staph on culture from swab of drainage 08/02 although obtained after several days of antibiotics. Continue clindamycin until tomorrow for 7 days, then d/c. Abscess and cellulitis of the left breast. This is resolved now. On follow-up ultrasonography there is no further/leftover collections with noted soft tissue and superficial edema. Status: Acute (3) DWIGHT (acute kidney injury): Renal function stabilized. Still in DWIGHT on CKD, creatinine 2.3. . Hold her Lasix for now. No obstruction on ultrasonography. Monitor for now. She says she has not used Voltaren in several months. Status: Acute (4) UTI (urinary tract infection): E coli UTI. Rocephin. Ultrasound without obstruction. Status: Acute (5) Atrial fibrillation: Heart rates currently well controlled A. fib with RVR. Cont metoprolol. Eliquis. Status: Acute Qualifiers: Atrial fibrillation type: longstanding persistent Qualified Code(s): I48.11 - Longstanding persistent atrial fibrillation (6) Hyponatremia: Acute hyponatremia improved. Liberalize sodium intake. Monitor. Element of pseudohyponatremia with hyperglycemia. Status: Acute (7) Chronic kidney disease, stage III (moderate): Status: Acute (8) Morbid obesity: Status: Acute Additional A&P Information Hyperglycemia without DKA Type 2 diabetes insulin-dependent, only had development of abscess under her left breast however no active sign of sepsis, no active chest pain, no active confusion, no signs of UTI patient is not complaining abdominal pain Would request troponin, EKG reviewed which is showing atrial fibrillation without ischemic or infarctive changes, Chronic kidney disease stage III no acute exacerbation . creatinine at her baseline No active exacerbation of congestive heart failure Hold Lasix because she is getting fluids for hyperglycemia Full code carb consistent diet DVT prophylaxis : on a/c with Eliquis Attestations Medical Necessity Statement*: high insulin requirements, being titrated off insulin drip to s/c insulin Coding Level of Care Code Acute Civil Designer for g Fwd Diagnoses Hyperglycemia R73.9 Abscess L02.91 DWIGHT (acute kidney injury) N17.9 UTI (urinary tract infection) N39.0 Atrial fibrillation I48.11 Atrial fibrillation type: longstanding persistent Hyponatremia E87.1 Chronic kidney disease, stage III (moderate) N18.3 Morbid obesity E66.01
[2020-08-05 11:37] LABS: Glucose Point of Care 240 mg/dL (70-110)
--- NOTE | 2020-08-05 14:33 | PC.NURSE ---
resting quietly this shift. note minimal drainage from left breast sore. interdry used per and also applied to groin areas
[2020-08-05 16:11] LABS: Glucose Point of Care 263 mg/dL (70-110)
[2020-08-05 16:36] LABS: Glucose Point of Care 232 mg/dL (70-110)
[2020-08-05 16:36] LABS: Glucose Point of Care 214 mg/dL (70-110)
[2020-08-05 16:36] LABS: Glucose Point of Care 205 mg/dL (70-110)
[2020-08-05 16:36] LABS: Glucose Point of Care 200 mg/dL (70-110)
[2020-08-05 16:36] LABS: Glucose Point of Care 252 mg/dL (70-110)
[2020-08-05 16:36] LABS: Glucose Point of Care 131 mg/dL (70-110)
[2020-08-05 16:36] LABS: Glucose Point of Care 142 mg/dL (70-110)
[2020-08-05 16:36] LABS: Glucose Point of Care 168 mg/dL (70-110)
[2020-08-05 16:36] LABS: Glucose Point of Care 181 mg/dL (70-110)
[2020-08-05 16:36] LABS: Glucose Point of Care 103 mg/dL (70-110)
[2020-08-05 16:36] LABS: Glucose Point of Care 123 mg/dL (70-110)
[2020-08-05 16:36] LABS: Glucose Point of Care 203 mg/dL (70-110)
[2020-08-05 16:36] LABS: Glucose Point of Care 236 mg/dL (70-110)
[2020-08-05 16:36] LABS: Glucose Point of Care 194 mg/dL (70-110)
[2020-08-05] MEDS: nystatin powder 15 gm Btl 1 APPLIC TOPICAL (17:58)
[2020-08-05] MEDS: clotrimazole 1% cream 30 gm 1 APPLIC TOPICAL (17:59)
[2020-08-05 20:01] LABS: Glucose Point of Care 329 mg/dL (70-110)
[2020-08-06] VITALS (21 sets, daily range): BP systolic 92–143; BP diastolic 46–123; PULSE 76–109; RESP 12–21; TEMP 36.5–36.8; O2SAT 95–99
[2020-08-06 00:05] LABS: Glucose Point of Care 342 mg/dL (70-110)
[2020-08-06] MEDS: HYDROcodone-acetaminophen 10-325 mg Tablet 1 TAB PO ×2 (00:07→10:51)
[2020-08-06] MEDS: levothyroxine 25 mcg Tablet PO (04:50)
[2020-08-06] MEDS: pantoprazole DR 40 mg Tablet PO (04:50)
[2020-08-06] MEDS: buPROPion SR (12 HR) 100 mg Tablet 200 MG PO (04:50)
[2020-08-06] MEDS: sertraline 100 mg Tablet PO (04:51)
[2020-08-06 07:37] LABS: Glucose Point of Care 317 mg/dL (70-110)
[2020-08-06] MEDS: metoprolol tartrate 25 mg Tablet PO ×2 (07:42→21:42)
[2020-08-06] MEDS: cefTRIAXone 1,000 MG in sodium chloride 0.9% (plus) 50 ML 100 MG IV (07:42)
[2020-08-06] MEDS: apixaban 5 mg Tablet PO ×2 (07:43→21:42)
[2020-08-06] MEDS: nystatin powder 15 gm Btl 1 APPLIC TOPICAL ×2 (08:09→18:06)
[2020-08-06] MEDS: clindamycin 150 mg Capsule 300 MG PO ×2 (08:09→14:07)
[2020-08-06] MEDS: insulin glargine 100 units/1 mL 100 UNIT SUBCUT (08:09)
[2020-08-06] MEDS: neomycin-poly-bacitracin oint 28 gm 1 APPLIC TOPICAL ×2 (08:10→18:05)
[2020-08-06] MEDS: clotrimazole 1% cream 30 gm 1 APPLIC TOPICAL ×2 (08:10→18:05)
--- NOTE | 2020-08-06 09:13 | PC.CHAP ---
Pastoral Care Encounter/Spiritual Assessment Type of Contact [] Declined website/blog editor visit [] Patient/Family/Request visit [] Outpatient visit [] Follow-up visit [] Physician referral [] Code/Alert [x] Routine visit [] Staff referral [] Actively dying [] Patient sleeping [] Family support [] [] Out of room [] Palliative care [] [] Receiving care in room [] Pre-surgical visit [] Trauma [] Long length of stay [x] ICU visit [x] Other: curtain drawn... continue to pray outside room Relational/Emotional Strength [] Patient feels connected with others/family/visitors/staff [] Distress [] Loneliness/isolation [] Abandonment Spirituality of Patient [] Person of [place] [] Attends Mu-Ism of their [place] [] Believes in Prayer [] Reads Bible or Mu-Ism materials [] There are Spiritual issues to be addressed Full Charge Bookkeeper Interventions [x] Prayer [] Active listening [] Non-anxious presence [] Spiritual/emotional support [] Crisis/trauma care [] Spiritual counseling [] Bereavement support [] Provided bereavement packet [] Provided Bible/devotional materials [] Provided toy/stuffed animal, coloring book to patient or family member [] Provided Communion [] Anointing/[place] [] Salvation [x] Completed spiritual assessment [] Other: Impact on Illness or Injury [] Angry [] Fearful [] Anxious [] Often cries [] Exhaustion [] Unable to work [] Unable to attend jewish [] Unable to walk/stand [] Unable to read [] Unable to drive [] Unable to eat/drink [] Unable to sleep [] Unable to be with family [] Patient intubated [] Other: Summary Time spent with patient
--- NOTE | 2020-08-06 10:06 | PC.NURSE ---
Patient rounding Pt up to bedside commode at this time. Linens changed and bath given. Pt reports that she is feeling better today, although she had sob early this morning around 0500. PT on 3L NC at 97%. Pt states no N&V, denies chest pain, lung sounds diminished, non-pitting edema to lower extremities, last bowel movement this am. Pt returned back to bed, watching tv. Will continue to monitor.
--- NOTE | 2020-08-06 10:30 | PC.SOCIAL ---
IMM Updated Updated pt on Pg 2 IMM. No questions voiced. Provided pt a copy. Signed, dated, & timed copy in chart.
[2020-08-06 11:35] LABS: Glucose Point of Care 287 mg/dL (70-110)
--- NOTE | 2020-08-06 17:01 | PC.NURSE ---
transfer Patient was transferred to [facility] by this nurse via wheelchair at 1645. All of patient belongings were with patient and put in room. Staff was informed of patients arrival.
[2020-08-06 17:47] LABS: Glucose Point of Care 268 mg/dL (70-110)
--- NOTE | 2020-08-06 18:54 | P.PN_ITS ---
Subjective Subjective: Interval history: No new complaints, cellulitis resolved over left breast, FS ranging between 269-342 since being transitioned from insulin drip to Lantus 100 U and sliding scale insulin Medications: Reviewed: Yes Vitals/I&O/Wt Last Vital Signs Temp 98.2 F 08/06/20 17:39 Pulse 80 08/06/20 17:39 Resp 18 08/06/20 17:39 BP 130/71 08/06/20 17:39 Pulse Ox 98 08/06/20 17:39 08/06/20 08/06/20 08/06/20 06:59 14:59 22:59 Intake Total 400 / 1770 890 / 890 480 / 1370 Output Total 900 / 2700 Balance -500 / -930 890 / 890 480 / 1370 Physical Exam Narrative: EXAM NARRATIVE: GEN: Awake, alert and oriented, no acute distress CVS: S1S2 N RS: CTA B/L Abd: Soft, nt/nd , bs+ CAST IRON DIPPER: no focal neuro deficits Data : 08/04/20 04:00 08/04/20 04:00 A&P Assessment and plan (1) Hyperglycemia: Persistent severe hyperglycemia, high insulin requirement. Changed from insulin infusion to lantus 100 U with high dose sliding scale s/c aspart on 08/06 Change insulin today to 80 U s/c Lantus and 18 U pre meal aspart starting 08/07 to replicate planned home regimen. Cellulitis and abscess appears to be resolving. abscess cx with S.epidermidis, likely colonizer. Started clindamycin 300 TID on 07/31, Completed 7 day course, will stop abx today Consistent carbohydrate diet. Status: Acute (2) Abscess: Coag negative staph on culture from swab of drainage 08/02 although obtained after several days of antibiotics. Abscess and cellulitis of the left breast. s/p I& D in the ER on day of admission Status: Acute (3) DWIGHT (acute kidney injury): Renal function stabilized. Continue to hold lasix as clinically euvolemic No obstruction on ultrasonography. Monitor for now. She says she has not used Voltaren in several months. Status: Acute (4) UTI (urinary tract infection): E coli UTI. Rocephin. Completed 5 days today, discontinue now Ultrasound without obstruction. Status: Acute (5) Atrial fibrillation: Heart rates currently well controlled A. fib with RVR. Cont metoprolol. Eliquis. Status: Acute Qualifiers: Atrial fibrillation type: longstanding persistent Qualified Code(s): I48.11 - Longstanding persistent atrial fibrillation (6) Hyponatremia: Acute hyponatremia improved. Liberalize sodium intake. Monitor. Element of pseudohyponatremia with hyperglycemia. Status: Acute (7) Chronic kidney disease, stage III (moderate): Status: Acute (8) Morbid obesity: Status: Acute (9) Intertrigo: Clotrimazole BID , nyststain powder, interdry Status: Acute Attestations Medical Necessity Statement*: glcemic control imporving, remains off insukin infusion, completed abx course today, planned discharge in the upcoming 24 hrs Coding Level of Care Code Acute Certified Professional Coder for Chg Fwd Diagnoses Hyperglycemia R73.9 Abscess L02.91 DWIGHT (acute kidney injury) N17.9 UTI (urinary tract infection) N39.0 Atrial fibrillation I48.11 Atrial fibrillation type: longstanding persistent Hyponatremia E87.1 Chronic kidney disease, stage III (moderate) N18.3 Morbid obesity E66.01 Intertrigo L30.4
[2020-08-06 21:18] LABS: Glucose Point of Care 339 mg/dL (70-110)
[2020-08-07] VITALS (9 sets, daily range): BP systolic 102–141; BP diastolic 64–92; PULSE 80–96; RESP 17–18; TEMP 36.6–36.9; O2SAT 96–99
[2020-08-07] MEDS: HYDROcodone-acetaminophen 10-325 mg Tablet 1 TAB PO (00:52)
[2020-08-07] MEDS: sertraline 100 mg Tablet PO (05:51)
[2020-08-07] MEDS: pantoprazole DR 40 mg Tablet PO (05:51)
[2020-08-07] MEDS: buPROPion SR (12 HR) 100 mg Tablet 200 MG PO (05:51)
[2020-08-07] MEDS: levothyroxine 25 mcg Tablet PO (05:51)
[2020-08-07 06:40] LABS: Glucose Point of Care 419 mg/dL (70-110)
[2020-08-07 08:22] LABS: Alanine Aminotransferase 20 U/L (0-33); Albumin Level 3.5 g/dL (3.5-5.2); Alkaline Phosphatase 107 IU/L (35-105); Anion Gap 15.3 (5-19); Aspartate Amino Transferase 19 U/L (0-32); Blood Urea Nitrogen 26 mg/dL (6-20); Carbon Dioxide 21 mmol/L (22-29); Chloride 103 mmol/L (98-107); Globulin 3.1 g/dL (1.3-4.6); Glomerular Filtration Rate 29.2 mL/min (90-130); Glucose 405 mg/dL (65-115); Osmolality Calculated 302 mOsm/kg (285-295); Potassium 4.3 mmol/L (3.5-5.1); Sodium 135 mmol/L (136-145); Total Bilirubin 0.4 mg/dL (0.15-1.2); Total Protein 6.6 g/dL (6.6-8.7)
[2020-08-07] MEDS: apixaban 5 mg Tablet PO (08:24)
[2020-08-07] MEDS: insulin glargine 100 units/1 mL 80 UNIT SUBCUT (08:24)
[2020-08-07] MEDS: metoprolol tartrate 25 mg Tablet PO (08:24)
[2020-08-07] MEDS: neomycin-poly-bacitracin oint 28 gm 1 APPLIC TOPICAL (08:27)
[2020-08-07] MEDS: clotrimazole 1% cream 30 gm 1 APPLIC TOPICAL (08:28)
[2020-08-07] MEDS: nystatin powder 15 gm Btl 1 APPLIC TOPICAL (08:28)
[2020-08-07 11:02] LABS: Glucose Point of Care 345 mg/dL (70-110)
--- NOTE | 2020-08-07 14:42 | PM.DCS ---
Discharge Providers Date of Admission: 08/01/20 17:21 Date of Discharge: August 07, 2020 Attending Provider at Admission: Joaquín Chang MD Attending Provider at Discharge: Alisa Metzger MD Primary Care Provider: Mervat Nguyen Diagnoses at Discharge Discharge Diagnosis (1) Hyperglycemia: Status: Acute (2) Abscess: Status: Acute (3) DWIGHT (acute kidney injury): Status: Acute (4) UTI (urinary tract infection): Status: Acute (5) Atrial fibrillation: Status: Acute Qualifiers: Atrial fibrillation type: longstanding persistent Qualified Code(s): I48.11 - Longstanding persistent atrial fibrillation (6) Hyponatremia: Status: Acute (7) Chronic kidney disease, stage III (moderate): Status: Acute Permanent problem details: Cr has ranged 1.6-2.1 since 11/27 (8) Morbid obesity: Status: Acute (9) Intertrigo: Status: Acute Reason for Visit Reason for Visit: BOIL UNDER BREAST, HYPERGLYCEMIA Hospital Course Hospital Course Ana Lilia Miller is a 55 year old female patient with A. fib on chronic anticoagulation, CKD stage III, CHF, COPD, uncontrolled type 2 diabetes, last HbA1c at 14.1, recently started on insulin after discharge from long term who presented to the ER on July 31, 2020 due to complaints of an abscess and cellulitis under the left breast. She underwent incision and drainage in the ER, cultures showed staph epidermidis. After the I&D and getting treatment with IV ceftriaxone and p.o. clindamycin, her cellulitis did resolve at the time of discharge. She was also noted to have urinary tract infection with E. coli which was also treated with empiric 5-day course of ceftriaxone. Hospital course was notable for hyperglycemia which was uncontrolled and she was started on an insulin drip upon admission. At home she states she was taking 10 units of Lantus and sliding dose short-acting insulin based on her blood glucose numbers. However she was noting numbers in the range of 500-600 at home. On the insulin drip she was requiring between 28 to 35 units of insulin per hour. On 08/05 she was transitioned from IV insulin to subcutaneous insulin with Aspart and Lantus. At time of discharge these are set at Lantus of 80 units daily and premeal insulin Humalog at 20 units 3 times daily. She is instructed to check her blood sugar before and after each meal and 3 AM checks at least 2-3 times a week and bring the chart to her instrument lens generator's office office. Appointment is being arranged within the next week. Physical Exam Narrative: EXAM NARRATIVE: GEN: Awake, alert and oriented, no acute distress CVS: S1S2 N RS: CTA B/L Abd: Soft, nt/nd , bs+ MANAGER FILM: no focal neuro deficits Discharge Data Data Completed and Pending: Completed Studies During Hospitalization Category Date Time Status CXRP [XR chest 1V portable [id number]] R outine Exams 08/01/20 07:55 Completed US renal BI* [id number] Routine Ultrasound 08/02/20 08:00 Completed US soft tissue/ex tremity [id number] Rout ine Ultrasound 08/01/20 08:37 Completed Labs from last 24 hours 08/07/20 08/07/20 08/07/20 10:58 06:11 05:51 Sodium 135 L Potassium 4.3 Chloride 103 Carbon Dioxide 21 L Anion Gap 15.3 BUN 26 H Creatinine 1.8 H GFR Calculation 29.2 L Glucose 405 H POC Glucose 345 H 419 H Calculated Osmolal ity 302 H Calcium 9.0 Total Bilirubin 0.4 AST 19 ALT 20 Alkaline Phosphata se 107 H Total Protein 6.6 Albumin 3.5 Globulin 3.1 08/06/20 08/06/20 21:04 17:43 Sodium Potassium Chloride Carbon Dioxide Anion Gap BUN Creatinine GFR Calculation Glucose POC Glucose 339 H 268 H Calculated Osmolal ity Calcium Total Bilirubin AST ALT Alkaline Phosphata se Total Protein Albumin Globulin Vitals: Last Vital Signs Temp 98.0 F 08/07/20 11:23 Pulse 90 08/07/20 14:00 Resp 18 08/07/20 11:23 BP 127/81 08/07/20 11:23 Pulse Ox 96 08/07/20 11:23 Discharge Plan Discharge Patient Disposition: Home Condition: Stable Prescriptions: New Humalog KwikPen Insulin 100 unit/mL insulin pen 20 unit SUBCUT TID Qty: 15 RF: 0 Continued gabapentin 300 mg capsule 300 mg PO TID@0500,1300,2100 RF: 0 pantoprazole 40 mg tablet,delayed release (DR/EC) 40 mg PO DAILY@0500 RF: 0 ondansetron HCl 4 mg tablet 4 mg PO Q6H PRN (Reason: Nausea And Vomiting) RF: 0 levothyroxine 25 mcg tablet 25 mcg PO DAILY@0500 RF: 0 nystatin 100,000 unit/gram cream See Rx Instructions .ROUTE .COMPLEX RF: 0 valacyclovir [Valtrex] 1 gram tablet 1,000 mg PO Q12H 7 Days Qty: 14 RF: 2 potassium chloride 10 mEq Tablet Extended Release 10 meq PO BID@0500,1700 RF: 0 furosemide 80 mg Tablet 80 mg PO BID@0500,1700 RF: 0 Zoloft 100 mg tablet 100 mg PO DAILY@0500 RF: 0 Wellbutrin SR 200 mg tablet sustained-release 12 hr 200 mg PO DAILY@0500 RF: 0 Abilify 5 mg tablet 5 mg PO DAILY@0500 RF: 0 diclofenac sodium 1 % Gel 4 g TOPICAL QID PRN (Reason: Pain) RF: 0 cranberry 500 mg Capsule See Rx Instructions .ROUTE .COMPLEX RF: 0 Breo Ellipta 100-25 mcg/dose Blister With Device 1 inh INHALATION Q24H RF: 0 Incruse Ellipta 62.5 mcg/actuation Blister With Device 1 inh INHALATION Q24H RF: 0 sumatriptan succinate [Imitrex] 25 mg tablet 25 mg PO PRN RF: 0 metoprolol tartrate 25 mg tablet 25 mg PO Q12H RF: 0 Eliquis 5 mg tablet 5 mg PO Q12H RF: 0 hydrocodone-acetaminophen 10-325 mg tablet 1 tab PO Q4H MDD 6 tabs PRN (Reason: Pain) Qty: 12 RF: 0 Changed Basaglar KwikPen U-100 Insulin 100 unit/mL (3 mL) insulin pen 80 unit SUBCUT DAILY@0500 30 Days Qty: 15 RF: 0 Discontinued insulin aspart U-100 [Novolog U-100 Insulin aspart] 100 unit/mL Solution See Rx Instructions .ROUTE .COMPLEX RF: 0 Discharge Orders: Discharge Order (Routine); Ordered 08/07/20 Ordered By: Alisa Metzger Referrals: Teddy Flores MD [Physician] - 1 week ([id number] [facility] DR WILL CALL WITH APPOINTMENT ON WEDNESDAY OR WEDNESDAY PLEASE, ) Mervat Nguyen [Primary Care Provider] - 08/14/20 10:00 am Discharge Diet: Usual diet Discharge Activity: Resume usual activity Patient Instructions: Insulin Lispro (Injection), Acute Kidney Injury (DC), Urinary Tract Infection in Women (DC), Diabetic Hyperglycemia (DC) Discharge Attestations Time Spent in Discharge Care*: greater than 30 min Status at Discharge: Cognitive status at discharge: cognitively intact, Behavioral status at discharge: cooperative, Quality Metrics Clinical Quality Measures During this hospital stay, did patient experience: None Coding Level of Care Code Acute Auto Battery Builder for Chg Fwd Diagnoses Hyperglycemia R73.9 Abscess L02.91 DWIGHT (acute kidney injury) N17.9 UTI (urinary tract infection) N39.0 Atrial fibrillation I48.11 Atrial fibrillation type: longstanding persistent Hyponatremia E87.1 Chronic kidney disease, stage III (moderate) N18.3 Morbid obesity E66.01 Intertrigo L30.4
--- NOTE | 2020-08-07 14:48 | PC.NURSE ---
Discharge instructions reviewed with patient, verbalized understanding denies further questions or concerns.
--- NOTE | 2020-08-07 15:40 | PC.NURSE ---
patients 2 tabs locked up in ICU yakovs returned to patient by this nurse with Cecily MONTIEL as witness.
--- NOTE | 2020-08-07 15:42 | PC.NURSE ---
This nurse removed two (2) pills from ICU pyxis and gave them to nurse circuit manager, Shamika Vick RN and patient care nurse. Patient being discharged.
--- NOTE | 2020-08-07 15:44 | PC.NURSE ---
patient belongings taken with patient to discharge via wheelchair with TIMUR
== END 2020-08-07 15:46 | disposition home or self-care (01) | DRG 638 ==
LOC: ER 19:37 → ICU 08-01 05:06 → MEDSURG 08-06 17:15
PROVIDERS: Internal Medicine; Student in an Organized Health Care Education/Training Program; Admitting Provider Internal Medicine; Emergency Provider Emergency Medicine; PCP Internal Medicine; Visit Provider Student in an Organized Health Care Education/Training Program
DX: E11.65 Type 2 diabetes mellitus with hyperglycemia (principal); I48.11 Longstanding persistent atrial fibrillation; L02.213 Cutaneous abscess of chest wall; L03.313 Cellulitis of chest wall; F33.9 Major depressive disorder, recurrent, unspecified; Z68.44 Body mass index [BMI] 60.0-69.9, adult; E87.1 Hypo-osmolality and hyponatremia; N17.9 Acute kidney failure, unspecified; N39.0 Urinary tract infection, site not specified; E11.22 Type 2 diabetes mellitus with diabetic chronic kidney disease; I13.10 Hypertensive heart and chronic kidney disease without heart failure, with stage 1 through stage 4 chronic kidney disease, or unspecified chronic kidney disease; N18.30 Chronic kidney disease, stage 3 unspecified; Z99.81 Dependence on supplemental oxygen; B00.1 Herpesviral vesicular dermatitis; Z99.3 Dependence on wheelchair; J44.9 Chronic obstructive pulmonary disease, unspecified; F41.1 Generalized anxiety disorder; F42.3 Hoarding disorder; E03.9 Hypothyroidism, unspecified; E66.01 Morbid (severe) obesity due to excess calories; Z87.891 Personal history of nicotine dependence; B96.20 Unspecified Escherichia coli [E. coli] as the cause of diseases classified elsewhere; L30.4 Erythema intertrigo; Z79.01 Long term (current) use of anticoagulants; Z79.891 Long term (current) use of opiate analgesic; B95.7 Other staphylococcus as the cause of diseases classified elsewhere
CPT/HCPCS: 10060; 12345; 36415; 36416; 71045; 76770; 76857; 76882; 80048; 80053; 81001; 82009; 82962; 83036; 83690; 83735; 84484; 85025; 86140; 87070; 87075; 87077; 87086; 87186; 87205; 93005; 94640; 96372; 96375; 99283; G0378; J0696; J1815 ×2; J2405; J7030; J7050; P9047

== ENCOUNTER → 2020-09-10 11:00 | Outpatient (BNVA) | payer MEDICARE, MEDICAID, SELFPAY | PROVIDERS: PCP Internal Medicine; Referring Provider Internal Medicine; Visit Provider Internal Medicine | DX: E03.9 Hypothyroidism, unspecified (principal); E11.22 Type 2 diabetes mellitus with diabetic chronic kidney disease; N18.4 Chronic kidney disease, stage 4 (severe); I12.9 Hypertensive chronic kidney disease with stage 1 through stage 4 chronic kidney disease, or unspecified chronic kidney disease; E11.40 Type 2 diabetes mellitus with diabetic neuropathy, unspecified; E11.65 Type 2 diabetes mellitus with hyperglycemia; Z79.4 Long term (current) use of insulin; E66.01 Morbid (severe) obesity due to excess calories; Z68.45 Body mass index [BMI] 70 or greater, adult; E78.2 Mixed hyperlipidemia; I48.11 Longstanding persistent atrial fibrillation | CPT/HCPCS: 99205 ==

== ENCOUNTER → 2020-10-15 08:21 | Outpatient (BNVA) | payer MEDICARE, MEDICAID, SELFPAY | PROVIDERS: PCP Internal Medicine; Visit Provider Nurse Practitioner Psychiatric/Mental Health | DX: F33.2 Major depressive disorder, recurrent severe without psychotic features (principal); F41.1 Generalized anxiety disorder; E11.9 Type 2 diabetes mellitus without complications; E66.01 Morbid (severe) obesity due to excess calories; Z68.44 Body mass index [BMI] 60.0-69.9, adult; F42.3 Hoarding disorder | CPT/HCPCS: 99214 ==

== ENCOUNTER 2020-10-15 13:00 | Inpatient (IN) | payer MEDICARE, MEDICAID, SELFPAY ==
[2020-10-15] VITALS (73 sets, daily range): BP systolic 116–168; BP diastolic 76–129; PULSE 19–135; RESP 12–104; TEMP 36.6–37.7; O2SAT 87–100; BMI 64.5
--- NOTE | 2020-10-15 13:10 | W.ED.GENADLT ---
HPI - General Adult General: Chief complaint: General Medical Stated complaint: N/V/D, HYPERGLYCEMIA Time Seen by Provider: 10/15/20 13:06 History of Present Illness: HPI narrative: This patient is a 55-year-old female with a long history of diabetes presents to the emergency department for nausea vomiting for 1 week and too high to read glucose readings at home. EMS also reports the glucose was too high to read in the ambulance. Patient states she was recently given prescription for continuous monitoring glucose system but she does not know how to use it. Patient states that she takes 82 of her long-acting insulin every morning. And takes 22 units 3 times a day of her short acting. Patient states he cannot keep anything down. Will do medical evaluation treat as needed Severity: moderate Associated symptoms: Reports nausea and vomiting; Deny chest pain, dyspnea, headache(s), rash or palpitations Review of Systems General: Reports: 10 or more systems reviewed and unremarkable except in HPI and below Const: Denies: fever(s), chills, body aches or fatigue Eyes: Denies: change in vision or blurry vision ENMT: Denies: throat pain, hoarseness or mouth pain Card: Denies: chest pain, palpitations, irregular heart rhythm, edema, swelling of feet/ankles or lightheadedness Resp: Denies: dyspnea, productive cough, non-productive cough, wheezing or pain on inspiration GI: Reports: nausea and vomiting; Denies: abdominal pain : Denies: flank pain, difficulty voiding, dysuria, urinary frequency, urinary urgency or urinary hesitancy Musc: Denies: neck pain, back pain, extremity pain, extremity swelling, joint pain, joint swelling, joint redness, joint warmth or limited range of motion Skin/Breast: Denies: rash, pruritus, erythema or skin tenderness Neuro: Denies: headache(s), numbness in extremities or weakness in extremities Psych: Denies: anxiety or depression PFSH ED PFSH: Medical History Atrial fibrillation Chronic anticoagulation On hold due to vaginal bleeding Congestive heart failure COPD (chronic obstructive pulmonary disease) Generalized anxiety disorder Hoarding disorder with excessive acquisition Hypertension Hypothyroidism Major depressive disorder, recurrent severe without psychotic features Morbid obesity with BMI of 60.0-69.9, adult DELMIS (obstructive sleep apnea) Oxygen dependent Surgical History History of dental surgery Status post biopsy of skin Family History Other Chronic kidney disease (CKD) Diabetes Hypertension Thyroid disease Social History Smoking and tobacco status: former smoker Alcohol intake: never Lives independently: Yes Household members: spouse Marital status: Marital status details: is wheelchair-bound, Current occupational status: disabled Current gender identity: Female Physical Exam Const: COMMON NORMALS: no acute distress, average body habitus, patient oriented x3, no limitations, healthy appearing, alert and well nourished HENMT: COMMON NORMALS: normocephalic, atraumatic, hearing grossly normal bilaterally, external ears normal, EAC's normal, TM's normal bilaterally, Normal external nose present, Normal nasal mucous membranes and turbinates present, moist oral mucous membranes, oropharynx normal, dentition normal and gingiva normal HEAD & SCALP: normocephalic and atraumatic NOSE: Normal external nose present and Normal nasal mucous membranes and turbinates present EXTERNAL EAR: Yes external ears normal EXTERNAL AUDITORY CANAL: EAC's normal TYMPANIC MEMBRANE: TM's normal bilaterally Neck/C-Spine: COMMON NORMALS: full ROM, no lymphadenopathy, supple, no meningeal signs, no JVD, Thyroid normal and No carotid bruits THYROID: Thyroid normal Chest: COMMONS NORMALS: normal inspection of the chest, normal palpation of entire chest wall, normal inspection of the breasts and normal palpation of the breasts Breast/axilla inspection: Yes normal inspection of the breasts BREAST/AXILLA PALPATION: Yes normal palpation of the breasts Resp: COMMON NORMALS: normal respiratory effort, No retractions, No use of accessory muscles, clear to auscultation bilaterally and percussion normal AUSCULTATION: clear to auscultation bilaterally PERCUSSION: percussion normal Cardio: COMMON NORMALS: no JVD, regular rate, regular rhythm, S1 normal heart sound present, S2 normal heart sound present, No gallops present (Cardio), No clicks present (Cardio), No murmurs present (Cardio), No rub (Cardio) and Peripheral pulses 2+ throughout RATE: regular rate RHYTHM: regular rhythm HEART SOUNDS: S1 normal heart sound present and S2 normal heart sound present PERIPHERAL PULSES: Peripheral pulses 2+ throughout GI: COMMON NORMALS: Normal to inspection, nondistended, normoactive bowel sounds present, Soft to palpation, non-tender, No hepatosplenomegaly present, no masses and no bruits PALPATION: Yes Soft to palpation and Yes No hepatosplenomegaly present : COMMON NORMALS: Yes no CVA tenderness, Yes normal external appearance, Yes normal appearance of the vagina, Yes normal appearance of the cervix, Yes normal bimanual exam, Yes No adnexal tenderness and Yes no masses BLADDER/KIDNEY EXAM: Yes no CVA tenderness BIMANUAL EXAM - VAGINA & UTERUS: Yes normal bimanual exam Back/Pelvis: COMMON NORMALS: no CVA tenderness, thoracic and lumbar spine normal to inspection, no thoracic nor lumbar tenderness, thoraco-lumbar ROM normal and straight leg raise negative bilaterally Extremity: COMMON NORMALS: normal to inspection, full ROM, capillary refill normal, no joint enlargement, no clubbing, cyanosis or edema, no calf tenderness and no pedal edema Neuro: COMMON NORMALS: patient oriented x3 SENSORIUM/ORIENTATION: Yes alert MENINGEAL SIGNS: Yes no meningeal signs Course Reevaluation(s): Reevaluation #1: Patient's glucose comes back at 901 with a sodium of 117. Patient be given her second liter of IV fluid bolus will be started on insulin drip. We are still waiting on the ABG. Patient does appear to be stable however. Other than her glucose readings. We will continue to monitor. Time: 14:37 Consultations: Consultation #1: I discussed at length with Dr. Higgins he is accepted this patient for admission and he agrees with insulin drip and admission to ICU. He will see patient write additional orders Time: 14:47 Vital Signs: Vital signs: Vital Signs Temperature 97.9 F 10/15/20 13:24 Pulse Rate 76 10/15/20 14:27 Respiratory Rate 20 H 10/15/20 14:27 Blood Pressure 139/92 10/15/20 13:24 Pulse Oximetry 97 10/15/20 14:27 MDM - General Adult MDM Narrative: Medical decision making narrative: Does not appear to patient is in acute DKA but severe hyperglycemia. Poorly controlled diabetes. Glucose over 901 and sodium 117. Patient given IV fluid bolus and insulin drip. Patient be admitted to the ICU for Dr. Higgins on an insulin drip. Differential Diagnosis: Differential Diagnosis: DKA, nonketotic os hyperosmolar hyperglycemia. Medical Records: Attestation: I reviewed the patient's medical records. Lab Data: Attestation: I reviewed the patient's lab results. Labs: Lab Results 10/15/20 10/15/20 10/15/20 Range/Units 12:45 12:45 13:21 WBC 11.5 H (4.0-10.0) 10^3/ uL RBC 5.40 H (4.1-5.3) 10^6/u L Hgb 13.7 (11.5-15.3) g/dL Hct 44.2 (37.0-47.0) % MCV 81.9 (81-99) fL MCH 25.4 L (28.0-34.0) pg MCHC 31.0 (30.0-36.0) g/dL RDW 16.2 H (12.1-15.1) % Plt Count 380 (130-400) 10^3/c mm MPV 12.6 H (7.4-10.4) fL Neut % (Auto) 77.8 % Lymph % (Auto) 14.1 % [place] % (Auto) 4.2 % Eos % (Auto) 2.1 % Baso % (Auto) 0.8 % Neut # (Auto) 8.97 H (1.8-7.7) 10^3/u L Lymph # (Auto) 1.6 (0.8-4.8) 10^3/u L [place] # (Auto) 0.5 (0.2-0.9) 10^3/u L Eos # (Auto) 0.2 (0.0-0.8) 10^3/u L Baso # (Auto) 0.1 (0.0-0.1) 10^3/u L Nucleated RBC % (a uto) 0 % Nucleated RBCs # 0.0 /100WBC Specimen Type Sample Site ABG pH (7.35-7.45) ABG pCO2 (35-45) mmHg ABG pO2 (80.0-100.0) mmH g ABG HCO3 (22-26) mmol/L ABG Base Excess (-2.0-2.0) mmol/ L Elian Test Hematocrit (37-47) % O2 Delivery Device O2 Liters/Min % Real Estate Associate ID Sodium 117 L* (136-145) mmol/L Potassium 3.2 L (3.5-5.1) mmol/L Chloride 81 L (98-107) mmol/L Carbon Dioxide 21 L (22-29) mmol/L Anion Gap 18.2 (5-19) BUN 15 (6-20) mg/dL Creatinine 1.5 H (0.5-0.9) mg/dL GFR Calculation 36.1 L (90-130) mL/min Glucose 901 H* (65-115) mg/dL POC Glucose > 600 H* (70-110) mg/dL Calculated Osmolal ity 289 (285-295) mOsm/k g Calcium 8.6 (8.5-10.5) mg/dL Total Bilirubin 0.8 (0.15-1.2) mg/dL AST 5 (0-32) U/L ALT 6 (0-33) U/L Alkaline Phosphata se 139 H (35-105) IU/L Total Protein 7.1 (6.6-8.7) g/dL Albumin 3.9 (3.5-5.2) g/dL Globulin 3.2 (1.3-4.6) g/dL Lipase 55 (13-60) U/L 10/15/20 Range/Units 14:33 WBC (4.0-10.0) 10^3/ uL RBC (4.1-5.3) 10^6/u L Hgb (11.5-15.3) g/dL Hct (37.0-47.0) % MCV (81-99) fL MCH (28.0-34.0) pg MCHC (30.0-36.0) g/dL RDW (12.1-15.1) % Plt Count (130-400) 10^3/c mm MPV (7.4-10.4) fL Neut % (Auto) % Lymph % (Auto) % [place] % (Auto) % Eos % (Auto) % Baso % (Auto) % Neut # (Auto) (1.8-7.7) 10^3/u L Lymph # (Auto) (0.8-4.8) 10^3/u L [place] # (Auto) (0.2-0.9) 10^3/u L Eos # (Auto) (0.0-0.8) 10^3/u L Baso # (Auto) (0.0-0.1) 10^3/u L Nucleated RBC % (a uto) % Nucleated RBCs # /100WBC Specimen Type Arterial Sample Site Radial, right ABG pH 7.50 H (7.35-7.45) ABG pCO2 25.3 L (35-45) mmHg ABG pO2 143.0 H (80.0-100.0) mmH g ABG HCO3 19.8 L (22-26) mmol/L ABG Base Excess -1.8 (-2.0-2.0) mmol/ L Elian Test Pos Hematocrit 40.5 (37-47) % O2 Delivery Device Nc O2 Liters/Min 4.0 % Real Estate Associate ID jmn Sodium (136-145) mmol/L Potassium (3.5-5.1) mmol/L Chloride (98-107) mmol/L Carbon Dioxide (22-29) mmol/L Anion Gap (5-19) BUN (6-20) mg/dL Creatinine (0.5-0.9) mg/dL GFR Calculation (90-130) mL/min Glucose (65-115) mg/dL POC Glucose (70-110) mg/dL Calculated Osmolal ity (285-295) mOsm/k g Calcium (8.5-10.5) mg/dL Total Bilirubin (0.15-1.2) mg/dL AST (0-32) U/L ALT (0-33) U/L Alkaline Phosphata se (35-105) IU/L Total Protein (6.6-8.7) g/dL Albumin (3.5-5.2) g/dL Globulin (1.3-4.6) g/dL Lipase (13-60) U/L Discharge Plan Discharge Patient Disposition: Admitted As Inpatient Clinical Impression: Acute hyperglycemia, Morbid obesity with BMI of 60.0-69.9, adult, Hyponatremia, Morbid obesity, Uncontrolled type 2 diabetes with neuropathy, Long-term insulin use Condition: Stable Prescriptions: No Action gabapentin 300 mg capsule 300 mg PO TID@0500,1300,2100 RF: 0 pantoprazole 40 mg tablet,delayed release (DR/EC) 40 mg PO DAILY@0500 RF: 0 (DME) Dexcom G6 Straight Cutter Misc See Rx Instructions .ROUTE .MEDSUPPLY Qty: 1 RF: 0 (DME) Dexcom G6 Sensor Device See Rx Instructions .ROUTE .MEDSUPPLY Qty: 3 RF: 0 (DME) Dexcom G6 Transmitter Device See Rx Instructions .ROUTE .MEDSUPPLY Qty: 1 RF: 0 (DME) pen needle, diabetic [Lite Touch Insulin Pen Lester] 31 gauge x 3/16 needle See Rx Instructions .ROUTE .MEDSUPPLY Qty: 400 RF: 3 (DME) Accu-Chek Guide test strips Strip See Rx Instructions .ROUTE .MEDSUPPLY Qty: 300 RF: 3 (DME) lancets [Accu-Chek Fastclix Lancet Drum] Misc See Rx Instructions .ROUTE .MEDSUPPLY Qty: 360 RF: 3 ondansetron HCl 4 mg tablet 4 mg PO Q6H PRN (Reason: Nausea And Vomiting) RF: 0 levothyroxine 25 mcg tablet 25 mcg PO DAILY@0500 RF: 0 nystatin 100,000 unit/gram cream See Rx Instructions .ROUTE .COMPLEX RF: 0 valacyclovir [Valtrex] 1 gram tablet 1,000 mg PO Q12H 7 Days Qty: 14 RF: 2 potassium chloride 10 mEq Tablet Extended Release 10 meq PO BID@0500,1700 RF: 0 furosemide 80 mg Tablet 80 mg PO BID@0500,1700 RF: 0 aripiprazole [Abilify] 5 mg tablet 5 mg PO DAILY@0500 RF: 0 diclofenac sodium 1 % Gel 4 g TOPICAL QID PRN (Reason: Pain) RF: 0 cranberry 500 mg Capsule 500 mg PO DAILY@0500 RF: 0 Breo Ellipta 100-25 mcg/dose Blister With Device 1 inh INHALATION Q24H RF: 0 Incruse Ellipta 62.5 mcg/actuation Blister With Device 1 inh INHALATION DAILY@0500 RF: 0 sumatriptan succinate [Imitrex] 25 mg tablet 25 mg PO PRN RF: 0 metoprolol tartrate 25 mg tablet 25 mg PO Q12H RF: 0 Eliquis 5 mg tablet 5 mg PO Q12H RF: 0 hydrocodone-acetaminophen 10-325 mg tablet 1 tab PO Q4H MDD 6 tabs PRN (Reason: Pain) Qty: 12 RF: 0 Zoloft 100 mg tablet 100 mg PO DAILY@0500 RF: 0 Wellbutrin SR 200 mg tablet sustained-release 12 hr 200 mg PO DAILY@0500 RF: 0 Basaglar KwikPen U-100 Insulin 100 unit/mL (3 mL) insulin pen 84 unit SUBCUT DAILY@0500 RF: 0 Referrals: Mervat Nguyen [Primary Care Provider] - Coding Level of Care Code ED City Dispatch Supervisor for Chg Fwd Exam Comprehensive
[2020-10-15 13:24] LABS: Glucose Point of Care > 600 mg/dL (70-110)
[2020-10-15 13:35] LABS: Basophils # 0.1 10^3/uL (0.0-0.1); Basophils % 0.8 %; Eosinophils # 0.2 10^3/uL (0.0-0.8); Eosinophils % 2.1 %; Hematocrit 44.2 % (37.0-47.0); Hemoglobin 13.7 g/dL (11.5-15.3); Lymphocytes # 1.6 10^3/uL (0.8-4.8); Lymphocytes % 14.1 %; Mean Corpuscular Hemoglobin 25.4 pg (28.0-34.0); Mean Corpuscular Volume 81.9 fL (81-99); Mean Platelet Volume 12.6 fL (7.4-10.4); Monocytes # 0.5 10^3/uL (0.2-0.9); Monocytes % 4.2 %; Neutrophils # 8.97 10^3/uL (1.8-7.7); Neutrophils % 77.8 %; Nucleated Red Blood Cells % 0 %; Platelet Count 380 10^3/cmm (130-400); Red Cell Distribution Width 16.2 % (12.1-15.1); White Blood Count 11.5 10^3/uL (4.0-10.0)
--- NOTE | 2020-10-15 14:11 | PC.NURSE ---
report received from DINESH Tong and care transferred to DINESH Zuluaga
[2020-10-15 14:18] LABS: Alanine Aminotransferase 6 U/L (0-33); Albumin Level 3.9 g/dL (3.5-5.2); Alkaline Phosphatase 139 IU/L (35-105); Anion Gap 18.2 (5-19); Aspartate Amino Transferase 5 U/L (0-32); Blood Urea Nitrogen 15 mg/dL (6-20); Calcium 8.6 mg/dL (8.5-10.5); Carbon Dioxide 21 mmol/L (22-29); Chloride 81 mmol/L (98-107); Globulin 3.2 g/dL (1.3-4.6); Glomerular Filtration Rate 36.1 mL/min (90-130); Lipase 55 U/L (13-60); Potassium 3.2 mmol/L (3.5-5.1); Total Bilirubin 0.8 mg/dL (0.15-1.2); Total Protein 7.1 g/dL (6.6-8.7)
[2020-10-15] MEDS: sodium chloride 0.9% 1,000 ML 999 ML IV (14:19)
[2020-10-15] MEDS: ondansetron 2 mg/ML SDV 2 mL 4 MG IVP (14:19)
[2020-10-15 14:27] LABS: Osmolality Calculated 289 mOsm/kg (285-295)
[2020-10-15] MEDS: insulin regular-human 100 units/1 mL 12 UNIT IVP (14:27)
[2020-10-15 14:32] LABS: Glucose 901 mg/dL (65-115); Sodium 117 mmol/L (136-145)
[2020-10-15 14:45] LABS: ABG PCO2 25.3 mmHg (35-45); Arterial Blood Gas Hematocrit 40.5 % (37-47); Base Excess ABG -1.8 mmol/L (-2.0-2.0); Blood Gas Allen Test Pos; Blood Gas Sample Site Radial, right; Blood Gas Sample Type Arterial; HCO3 ABG 19.8 mmol/L (22-26); Oxygen Device NC
[2020-10-15 15:10] LABS: Glucose Point of Care > 600 mg/dL (70-110)
--- NOTE | 2020-10-15 15:15 | ECG_ITS ---
[facility] Test Date: 2020-10-15 Pat Name: Ana Lilia Miller Department: Room: ICU07 Gender: Female Organic Preparation Analyst: : 1965 Requested By: Duncan Higgins Order Number: [id number] Glen MD: Sathya Sellers M.D. Measurements Intervals Purcell Rate: 112 P: [place]: QRS: 144 QRSD: 102 T: 32 QT: 352 QTc: 481 Interpretive Statements ATRIAL FIBRILLATION WITH RAPID VENTRICULAR RESPONSE PATTERN CONSISTENT WITH PULMONARY DISEASE POSSIBLE RIGHT VENTRICULAR HYPERTROPHY [SOME/ALL OF: PROMINENT R IN V1, LATE TRANSITION, RAD, [place], SSS] MODERATE ST DEPRESSION [0.05+ mV ST DEPRESSION] Compared to ECG 07/31/2020 17:56:15 ST (T wave) deviation now present Myocardial infarct finding no longer present Electronically Signed On 10-15-2020 17:58:26 CDT by Sathya Sellers M.D. [email or web address]
[2020-10-15 15:22] LABS: Bilirubin Urine Neg (Negative); Blood Urine 2+ (Negative); Glucose Urine UA 4+ (Normal); Ketones Urine Negative (Negative); Nitrate Urine Negative (Negative); Protein Urine Neg (Negative); Specific Gravity, Urine 1.005 (1.005-1.030); Urine Appearance Clear (CLEAR); Urine Color Straw (Yellow); pH Urine 6 (5-7)
--- NOTE | 2020-10-15 15:22 | P.HP_ITS ---
Providers/Chief Complaint Primary Care Provider: Mervat Nguyen Chief Complaint: N/V/D, HYPERGLYCEMIA History of Present Illness Ana Lilia Miller is a 55 year old female with PMH of present hypertension, DELMIS, chronic atrial fibrillation on Eliquis, morbid obesity, asthma, COPD on oxygen 3 L and anxiety disorder,HFpEF, came in with chief complaint of nausea , vomiting for the last 1 week.and too high to read glucose readings at home. EMS also reports the glucose was too high to read in the ambulance. Upon arrival in the ER she was worked up for above-mentioned complaint. Blood sugar on BMP: 901, anion gap: 18 , bicarb: 21, calculated osmolality: 289, serum sodium:118, serum potassium: 3.2. WBC: 11.5. ABG: pH: 7.5, PCO2:25, PO2:143. ECA medication: 10 units regular insulin, insulin drip.kcl 40 I.V. she was also started on I.V fluids. Review of Systems Const: Denies: fever(s) Card: Denies: palpitations Resp: Denies: dyspnea, productive cough, wheezing or pain on inspiration GI: Denies: abdominal pain : Denies: flank pain Medications/Allergies Home Medications Medication Instructions Recorded Confirmed Last Taken Type diclofenac sodium 4 g TOPICAL QID PRN 08/07/19 10/15/20 10/14/20 History gabapentin 300 mg capsule 300 mg PO TID@0500,1300,2100 10/05/19 10/15/20 07/31/20 History levothyroxine 25 mcg PO DAILY@0500 03/03/20 10/15/20 10/14/20 History nystatin See Rx Instructions .ROUTE .COMPLEX 03/03/20 10/15/20 10/14/20 History ondansetron HCl 4 mg PO Q6H PRN 03/03/20 10/15/20 10/15/20 History Breo Ellipta 1 inh INHALATION Q24H 06/18/20 10/15/20 07/30/20 History Eliquis 5 mg PO Q12H 06/18/20 10/15/20 10/14/20 History Incruse Ellipta 1 inh INHALATION DAILY@0500 06/18/20 10/15/20 07/30/20 History cranberry 500 mg PO DAILY@0500 12/02/2810/15/20 10/14/20 History metoprolol tartrate 25 mg PO Q12H 06/18/20 10/15/20 10/14/20 History pantoprazole 40 mg tablet,delayed 40 mg PO DAILY@0500 06/18/20 10/15/20 10/14/20 History release sumatriptan succinate [Imitrex] 25 mg PO PRN 06/18/20 10/15/20 Unknown History hydrocodone-acetaminophen 1 tab PO Q4H PRN #12 tab MDD 6 tabs 06/24/20 10/15/20 10/14/20 Rx valacyclovir [Valtrex] 1,000 mg PO Q12H 7 Days #14 tab 07/08/20 10/15/20 Unknown Rx aripiprazole [Abilify] 5 mg PO DAILY@0500 07/31/20 10/15/20 10/14/20 History furosemide 80 mg PO BID@0500,1700 07/31/20 10/15/20 10/14/20 History potassium chloride 10 meq PO BID@0500,1700 07/31/20 10/15/20 10/14/20 History blood-glucose meter,continuous #1 ea 09/10/20 10/15/20 Unknown Rx blood-glucose sensor #3 ea 09/10/20 10/15/20 Unknown Rx blood-glucose transmitter #1 ea 09/10/20 10/15/20 Unknown Rx pen needle, diabetic 31 gauge x #400 ea 09/16/20 10/15/20 Unknown Rx 3/16 blood sugar diagnostic #300 ea 09/19/20 10/15/20 Unknown Rx Accu-Chek Fastclix Lancet Drum #360 ea NS 10/07/20 10/15/20 Unknown Rx Basaglar KwikPen U-100 Insulin 84 unit SUBCUT DAILY@0500 10/15/20 10/15/20 10/14/20 History Wellbutrin SR 200 mg PO DAILY@0500 10/15/20 10/15/20 10/14/20 History Zoloft 100 mg PO DAILY@0500 10/15/20 10/15/20 Unknown History Allergies Allergy/AdvReac Type Severity Reaction Status Date / Time Tetracyclines Allergy Severe ALGY-Anaphy Verified 10/15/20 13:28 laxis wool Allergy Intermediate ALGY-Hives Verified 10/15/20 13:28 mushroom Allergy Unknown Verified 10/15/20 13:28 adhesive AdvReac Unknown Verified 10/15/20 13:28 Artificial Sweetners AdvReac Intermediate ADR-Headach Uncoded 10/15/20 13:28 e PFSH Acute PFSH: Medical History (Updated 10/15/20 @ 18:10 by Duncan Higgins MD) Chronic anticoagulation On hold due to vaginal bleeding Congestive heart failure COPD (chronic obstructive pulmonary disease) Generalized anxiety disorder Hoarding disorder with excessive acquisition Hypertension Hypothyroidism Major depressive disorder, recurrent severe without psychotic features Morbid obesity with BMI of 60.0-69.9, adult DELMIS (obstructive sleep apnea) Oxygen dependent Surgical History History of dental surgery Status post biopsy of skin Family History Other Chronic kidney disease (CKD) Diabetes Hypertension Thyroid disease Social History Smoking and tobacco status: former smoker Alcohol intake: never Lives independently: Yes Household members: spouse Marital status: Marital status details: is wheelchair-bound, Current occupational status: disabled Current gender identity: Female Vitals/I&O/Wt Last Vital Signs Temp 97.9 F 10/15/20 13:24 Pulse 76 10/15/20 14:27 Resp 21 H 10/15/20 15:08 BP 139/92 10/15/20 13:24 Pulse Ox 98 10/15/20 15:08 Weight last 48 hrs Weight 204.117 kg Physical Exam Const: COMMON NORMALS: patient oriented x3 HENMT: COMMON NORMALS: normocephalic and atraumatic HEAD & SCALP: normocephalic and atraumatic Chest: CHEST: Yes Symmetrical chest wall rise Resp: COMMON NORMALS: clear to auscultation bilaterally AUSCULTATION: clear to auscultation bilaterally Cardio: COMMON NORMALS: regular rate, regular rhythm, S1 normal heart sound present, S2 normal heart sound present, No gallops present (Cardio), No murmurs present (Cardio), No rub (Cardio) and Peripheral pulses 2+ throughout RATE: regular rate RHYTHM: regular rhythm HEART SOUNDS: S1 normal heart sound present and S2 normal heart sound present PERIPHERAL PULSES: Peripheral pulses 2+ throughout GI: COMMON NORMALS: Normal to inspection, nondistended, normoactive bowel sounds present, Soft to palpation, non-tender, No hepatosplenomegaly present and no masses AUSCULTATION: Yes normoactive bowel sounds PALPATION: Yes Soft to palpation and Yes No hepatosplenomegaly present RECTAL EXAM: deferred Extremity: COMMON NORMALS: no clubbing, cyanosis or edema and no pedal edema Neuro: COMMON NORMALS: patient oriented x3 Data : 10/15/20 12:45 10/15/20 12:45 A&P Assessment and plan (1) Acute hyperglycemia: Likely 2/2 to unconcontrolled DM. Last HbA1c: 14 ( 07/31 ) . Lantus 40 units one-time dose now. Currently fingerstick glucose is: 581 : We will stop insulin drip, and switch her to low dose sliding scale insulin. Carbohydrate consistent diet. Monitor fingerstick. 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 M.T 25 MG Q12 H Daily Eliquis 5 mg q12 h daily Status: Acute Qualifiers: Atrial fibrillation type: longstanding persistent Qualified Code(s): I48.11 - Longstanding persistent atrial fibrillation (7) Morbid obesity with BMI of 60.0-69.9, adult: Status: Chronic (8) DELMIS (obstructive sleep apnea): Status: Chronic (9) Congestive heart failure: Currently compensated. Lasix 80 mg po q12 h daily from am Status: Acute (10) Hypertension: Status: Acute Additional A&P Information Code Status :Full Code DVT PPX:Not needed on eliquis Disposition :Home Attestations Medical Necessity Statement*: Patient needs to be in hospital for management of acute hyperglycemia, nausea vomiting, inability to take p.o., IV hydration, IV insulin. Anticipated length of stay greater than 2 midnights. 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
[2020-10-15 15:23] LABS: Add Urine Microscopic? YES; Leukocyte Esterase Urine Trace (Negative); Urobilinogen Urine Norm (Negative)
[2020-10-15 15:44] LABS: Add Urine Culture? No; Bacteria Urine TRACE /hpf; RBC Urine 0-4 /hpf (0-2); Squamous Epithelial Cell Urine 0-4 /hpf (0-5)
[2020-10-15] MEDS: sodium chlor 0.9% + KCl 20 mEq 20 MEQ/1,000 ML BAG 100 MEQ IV (16:09)
[2020-10-15] MEDS: enoxaparin 40 mg/0.4 mL Syringe SUBCUT (16:12)
[2020-10-15] MEDS: insulin regular-human 250 UNIT in sodium chloride 0.9% 250 ML 25 UNIT IV (16:18)
[2020-10-15] MEDS: insulin glargine 100 units/1 mL 40 UNIT SUBCUT (16:19)
[2020-10-15] MEDS: lidocaine 1% 5 ML in potassium chloride premix 100 ML 25 ML IV (16:36)
[2020-10-15 16:47] LABS: Glucose Point of Care > 600 mg/dL (70-110)
[2020-10-15 18:01] LABS: Glucose Point of Care 581 mg/dL (70-110)
[2020-10-15 18:34] LABS: Glucose Point of Care 452 mg/dL (70-110)
[2020-10-15] MEDS: gabapentin 300 mg Capsule PO (20:16)
[2020-10-15] MEDS: HYDROcodone-acetaminophen 5-325 mg Tablet 1 TAB PO (20:16)
[2020-10-15] MEDS: metoprolol tartrate 25 mg Tablet PO (20:16)
[2020-10-16] VITALS (72 sets, daily range): BP systolic 93–126; BP diastolic 55–92; PULSE 50–127; RESP 9–26; TEMP 36.6–37.3; O2SAT 93–99
[2020-10-16] MEDS: HYDROcodone-acetaminophen 5-325 mg Tablet 1 TAB PO ×4 (00:11→20:49)
[2020-10-16] MEDS: sodium chlor 0.9% + KCl 20 mEq 20 MEQ/1,000 ML BAG 100 MEQ IV (02:18)
[2020-10-16] MEDS: insulin regular-human 250 UNIT in sodium chloride 0.9% 250 ML 15.9 UNIT IV (02:33)
[2020-10-16 03:42] LABS: Glucose Point of Care 562 mg/dL (70-110)
[2020-10-16 03:57] LABS: Basophils # 0.1 10^3/uL (0.0-0.1); Basophils % 0.7 %; Eosinophils # 0.3 10^3/uL (0.0-0.8); Eosinophils % 2.5 %; Hematocrit 39.8 % (37.0-47.0); Hemoglobin 12.2 g/dL (11.5-15.3); Lymphocytes % 16.7 %; Mean Corpuscular HGB Conc 30.7 g/dL (30.0-36.0); Mean Corpuscular Hemoglobin 25.2 pg (28.0-34.0); Mean Corpuscular Volume 82.2 fL (81-99); Mean Platelet Volume 12.3 fL (7.4-10.4); Monocytes # 0.5 10^3/uL (0.2-0.9); Monocytes % 4.6 %; Neutrophils # 8.75 10^3/uL (1.8-7.7); Neutrophils % 74.7 %; Nucleated Red Blood Cells % 0 %; Platelet Count 237 10^3/cmm (130-400); Red Blood Count 4.84 10^6/uL (4.1-5.3); Red Cell Distribution Width 15.9 % (12.1-15.1); White Blood Count 11.7 10^3/uL (4.0-10.0)
[2020-10-16 04:19] LABS: Glucose Point of Care 465 mg/dL (70-110)
[2020-10-16 05:12] LABS: Slide Review Slide Review Perform
[2020-10-16] MEDS: levothyroxine 25 mcg Tablet PO (05:48)
[2020-10-16 06:12] LABS: Glucose Point of Care 337 mg/dL (70-110)
[2020-10-16 07:20] LABS: Glucose Point of Care 484 mg/dL (70-110)
[2020-10-16 07:21] LABS: Glucose Point of Care 547 mg/dL (70-110)
[2020-10-16 07:21] LABS: Glucose Point of Care 588 mg/dL (70-110)
[2020-10-16 07:21] LABS: Glucose Point of Care 214 mg/dL (70-110)
[2020-10-16 07:21] LABS: Glucose Point of Care 343 mg/dL (70-110)
[2020-10-16 07:43] LABS: Anion Gap 13.1 (5-19); Blood Urea Nitrogen 20 mg/dL (6-20); Calcium 9.1 mg/dL (8.5-10.5); Carbon Dioxide 22 mmol/L (22-29); Chloride 98 mmol/L (98-107); Glomerular Filtration Rate 31.2 mL/min (90-130); Glucose 244 mg/dL (65-115); Magnesium 2.1 mg/dL (1.7-2.3); Osmolality Calculated 281 mOsm/kg (285-295); Potassium 3.1 mmol/L (3.5-5.1); Sodium 130 mmol/L (136-145)
[2020-10-16 07:49] LABS: Creatinine Clr Calc Pharmacy 72.4547
[2020-10-16] MEDS: lidocaine 1% 5 ML in potassium chloride premix 100 ML 25 ML IV (08:42)
[2020-10-16] MEDS: FUROsemide 10 mg/mL SDV 4mL 40 MG IVP ×2 (08:42→17:29)
[2020-10-16] MEDS: insulin glargine 100 units/1 mL 40 UNIT SUBCUT ×2 (08:42→17:29)
[2020-10-16] MEDS: ARIPiprazole 10 mg Tablet 5 MG PO (08:43)
[2020-10-16] MEDS: buPROPion XL (24 HR) 150 mg Tablet PO (08:43)
[2020-10-16] MEDS: gabapentin 300 mg Capsule PO ×3 (08:44→20:50)
[2020-10-16] MEDS: pantoprazole DR 40 mg Tablet PO (08:44)
[2020-10-16] MEDS: sertraline 100 mg Tablet PO (08:44)
[2020-10-16] MEDS: metoprolol tartrate 25 mg Tablet PO ×3 (08:45→20:50)
[2020-10-16] MEDS: cefTRIAXone 1,000 MG in sodium chloride 0.9% (plus) 50 ML 100 MG IV (09:36)
--- NOTE | 2020-10-16 10:27 | PC.CHAP ---
Pastoral Care Encounter/Spiritual Assessment Type of Contact [] Declined assorter laundry visit [] Patient/Family/Request visit [] Outpatient visit [] Follow-up visit [] Physician referral [] Code/Alert [x] Routine visit [] Staff referral [] Actively dying [] Patient sleeping [] Family support [] [] Out of room [] Palliative care [] [] Receiving care in room [] Pre-surgical visit [] Trauma [] Long length of stay [x] ICU visit [] Other: Relational/Emotional Strength [] Patient feels connected with others/family/visitors/staff [] Distress [] Loneliness/isolation [] Abandonment Spirituality of Patient [] Person of [place] [] Attends Congregational of their [place] [] Believes in Prayer [] Reads Bible or Pentecostal materials [] There are Spiritual issues to be addressed Stick Roller Interventions x] Prayer [] Active listening [] Non-anxious presence [] Spiritual/emotional support [] Crisis/trauma care [] Spiritual counseling [] Bereavement support [] Provided bereavement packet [] Provided Bible/devotional materials [] Provided toy/stuffed animal, coloring book to patient or family member [] Provided Communion [] Anointing/[place] [] Salvation [x] Completed spiritual assessment [] Other: Impact on Illness or Injury [] Angry [] Fearful [] Anxious [] Often cries [] Exhaustion [] Unable to work [] Unable to attend anabaptism [] Unable to walk/stand [] Unable to read [] Unable to drive [] Unable to eat/drink [] Unable to sleep [] Unable to be with family [] Patient intubated [] Other: Summary Time spent with patient
--- NOTE | 2020-10-16 11:13 | P.PN_ITS ---
Vitals/I&O/Wt Last Vital Signs Temp 97.9 F 10/16/20 08:00 Pulse 99 10/16/20 10:10 Resp 17 10/16/20 10:10 BP 104/82 10/16/20 09:00 Pulse Ox 99 10/16/20 10:10 10/15/20 10/16/20 10/16/20 22:59 06:59 14:59 Intake Total 2961.5 / 2961.5 2000 / 4961.5 800 / 800 Output Total 400 / 400 750 / 1150 Balance 2561.5 / 2561.5 1250 / 3811.5 800 / 800 Weight last 48 hrs Weight 204.117 kg Physical Exam Const: COMMON NORMALS: patient oriented x3 HENMT: COMMON NORMALS: normocephalic and atraumatic HEAD & SCALP: norm ocephalic and atraumatic Chest: CHEST: Yes Symmetrical chest wall rise Resp: COMMON NORMALS: clear to auscultation bilaterally AUSCULTATION: clear to auscultation bilaterally Cardio: COMMON NORMALS: regular rate, regular rhythm, S1 normal heart sound present, S2 normal heart sound present, No gallops present (Cardio), No murmurs present (Cardio), No rub (Cardio) and Peripheral pulses 2+ throughout RATE: regular rate RHYTHM: regular rhythm HEART SOUNDS: S1 normal heart sound present and S2 normal heart sound present PERIPHERAL PULSES: Peripheral pulses 2+ throughout GI: COMMON NORMALS: Normal to inspection, nondistended, normoactive bowel sounds present, Soft to palpation, non-tender, No hepatosplenomegaly present and no masses AUSCULTATION: Yes normoactive bowel sounds PALPATION: Yes Soft to palpation and Yes No hepatosplenomegaly present RECTAL EXAM: deferred Extremity: COMMON NORMALS: no clubbing, cyanosis or edema and no pedal edema Neuro: COMMON NORMALS: patient oriented x3 Urinary Catheter Management^: Casiano: Cath Placed During This Visit: yes Urinary Catheter Date of Insertion: 10/16/20 Urinary Catheter Time of Insertion: 09:00 Data : 10/16/20 03:10 10/16/20 07:12 A&P Assessment and plan (1) Acute hyperglycemia: Likely 2/2 to unconcontrolled DM. Last HbA1c: 14 ( 07/31 ) . Currently on Lantus 40 units BID NovoLog 25 units 3 times daily Premeal High-dose sliding scale insulin Carbohydrate consistent diet. Monitor fingerstick. Status: Acute (2) Hyponatremia: Pseudohyponatremia due to hyperglycemia Corrected serum sodium 136 Status: Acute (3) UTI (urinary tract infection): Ceftriaxone 1 g IV every 24 hours daily. 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 M.T 25 MG Q12 H Daily Eliquis 5 mg q12 h daily Status: Acute Qualifiers: Atrial fibrillation type: longstanding persistent Qualified Code(s): I48.11 - Longstanding persistent atrial fibrillation (8) Morbid obesity with BMI of 60.0-69.9, adult: Status: Chronic (9) DELMIS (obstructive sleep apnea): Status: Chronic (10) Congestive heart failure: Currently compensated. Lasix 40 mg I.V q12 h daily Status: Acute (11) Hypertension: Status: Acute Additional A&P Information Code Status :Full Code DVT PPX:Not needed on eliquis Disposition :Home Attestations Medical Necessity Statement*: Patient needs to be in hospital for management of acute hyperglycemia,UTI. 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
[2020-10-16 11:58] LABS: Glucose Point of Care 427 mg/dL (70-110)
[2020-10-16 17:19] LABS: Glucose Point of Care 408 mg/dL (70-110)
[2020-10-16 17:19] LABS: Glucose Point of Care 405 mg/dL (70-110)
[2020-10-16] MEDS: enoxaparin 40 mg/0.4 mL Syringe SUBCUT (17:28)
[2020-10-16 18:20] LABS: Glucose Point of Care 554 mg/dL (70-110)
--- NOTE | 2020-10-16 18:35 | PC.NURSE ---
Patient blood glucose 554, doctor notified, orders given to administer additional 25 units of novolog. Given as directed.
[2020-10-16 20:33] LABS: Glucose Point of Care 454 mg/dL (70-110)
--- NOTE | 2020-10-16 21:14 | PC.NURSE ---
New Orders; MD Bernardo loss prevention consultant notified of 2100 BG reading of 454. New orders to give HSS insulin, as well as 25 additional units of Novolog SubQ ONCE. Administered as directed.
[2020-10-17] VITALS (28 sets, daily range): BP systolic 97–122; BP diastolic 57–96; PULSE 77–134; RESP 12–23; TEMP 36.7–37.1; O2SAT 97–100
[2020-10-17 03:54] LABS: Basophils # 0.1 10^3/uL (0.0-0.1); Basophils % 0.6 %; Eosinophils # 0.3 10^3/uL (0.0-0.8); Eosinophils % 2.7 %; Lymphocytes # 1.3 10^3/uL (0.8-4.8); Lymphocytes % 13.2 %; Mean Corpuscular HGB Conc 30.8 g/dL (30.0-36.0); Mean Corpuscular Hemoglobin 25.5 pg (28.0-34.0); Mean Platelet Volume 12.1 fL (7.4-10.4); Monocytes # 0.6 10^3/uL (0.2-0.9); Monocytes % 6.4 %; Neutrophils # 7.67 10^3/uL (1.8-7.7); Neutrophils % 76.4 %; Nucleated Red Blood Cells % 0 %; Platelet Count 266 10^3/cmm (130-400); Red Cell Distribution Width 15.9 % (12.1-15.1)
[2020-10-17 04:19] LABS: Anion Gap 15.8 (5-19); Blood Urea Nitrogen 29 mg/dL (6-20); Calcium 8.7 mg/dL (8.5-10.5); Carbon Dioxide 24 mmol/L (22-29); Chloride 96 mmol/L (98-107); Glomerular Filtration Rate 27.4 mL/min (90-130); Glucose 365 mg/dL (65-115); Osmolality Calculated 295 mOsm/kg (285-295); Potassium 3.8 mmol/L (3.5-5.1); Sodium 132 mmol/L (136-145)
[2020-10-17] MEDS: levothyroxine 25 mcg Tablet PO (06:01)
[2020-10-17] MEDS: sertraline 100 mg Tablet PO (08:06)
[2020-10-17] MEDS: pantoprazole DR 40 mg Tablet PO (08:06)
[2020-10-17] MEDS: metoprolol tartrate 25 mg Tablet PO ×2 (08:06→20:21)
[2020-10-17] MEDS: FUROsemide 10 mg/mL SDV 4mL 40 MG IVP ×2 (08:06→17:01)
[2020-10-17] MEDS: gabapentin 300 mg Capsule PO ×3 (08:06→20:22)
[2020-10-17] MEDS: buPROPion XL (24 HR) 150 mg Tablet PO (08:06)
[2020-10-17] MEDS: ARIPiprazole 10 mg Tablet 5 MG PO (08:06)
[2020-10-17] MEDS: insulin glargine 100 units/1 mL 40 UNIT SUBCUT (08:07)
[2020-10-17] MEDS: cefTRIAXone 1,000 MG in sodium chloride 0.9% (plus) 50 ML 100 MG IV (08:16)
--- NOTE | 2020-10-17 09:52 | PC.NUTR ---
NUTRITION WEIGHT ASSESSMENT: Ht. 70 inches. Wt. 450 pounds. BMI of 64.6 kg/m2 indicates Morbid Obesity.
--- NOTE | 2020-10-17 10:41 | PC.CHAP ---
Pastoral Care Encounter/Spiritual Assessment Type of Contact [] Declined chrome tanner visit [] Patient/Family/Request visit [] Outpatient visit [] Follow-up visit [] Physician referral [] Code/Alert [x] Routine visit [] Staff referral [] Actively dying [] Patient sleeping [] Family support [] [] Out of room [] Palliative care [] [] Receiving care in room [] Pre-surgical visit [] Trauma [] Long length of stay [x] ICU visit [] Other: Relational/Emotional Strength [] Patient feels connected with others/family/visitors/staff [] Distress [] Loneliness/isolation [] Abandonment Spirituality of Patient [] Person of [place] [] Attends Restorationist of their [place] [] Believes in Prayer [] Reads Bible or Mosque materials [] There are Spiritual issues to be addressed Allergist/Immunologist Interventions [x] Prayer [x] Active listening [x] Non-anxious presence [x] Spiritual/emotional support [] Crisis/trauma care [] Spiritual counseling [] Bereavement support [] Provided bereavement packet [] Provided Bible/devotional materials [] Provided toy/stuffed animal, coloring book to patient or family member [] Provided Communion [] Anointing/[place] [] Salvation [x] Completed spiritual assessment [] Other: Impact on Illness or Injury [] Angry [] Fearful [] Anxious [] Often cries [] Exhaustion [] Unable to work [] Unable to attend restorationism [] Unable to walk/stand [] Unable to read [] Unable to drive [] Unable to eat/drink [] Unable to sleep [] Unable to be with family [] Patient intubated [] Other: Summa patient tired... looking for uninterrupted rest... but realizes it is for her own good... Time spent with patient 10 min
[2020-10-17 10:58] LABS: Glucose Point of Care 457 mg/dL (70-110)
[2020-10-17] MEDS: HYDROcodone-acetaminophen 5-325 mg Tablet 1 TAB PO ×2 (15:00→20:21)
[2020-10-17] MEDS: enoxaparin 40 mg/0.4 mL Syringe SUBCUT (15:42)
--- NOTE | 2020-10-17 16:04 | P.PN_ITS ---
Subjective Subjective: Interval history: Patient continue to be hyperglycemic overnight and feeling weak. no fever, chills, nausea or vomiting. remainder of vitals were stable, denied chest pain or dyspnea. Vitals/I&O/Wt Last Vital Signs Temp 98.0 F 10/17/20 07:00 Pulse 90 10/17/20 14:24 Resp 15 10/17/20 12:00 BP 110/76 10/17/20 12:00 Pulse Ox 100 10/17/20 07:49 10/17/20 10/17/20 10/17/20 06:59 14:59 22:59 Intake Total 800 / 5030 1350 / 1350 Output Total 1150 / 7550 2400 / 2400 Balance -350 / -2520 -1050 / -1050 Physical Exam Const: COMMON NORMALS: patient oriented x3 HENMT: COMMON NORMALS: normocephalic and atraumatic HEAD & SCALP: normocephalic and atraumatic Chest: CHEST: Yes Symmetrical chest wall rise Resp: COMMON NORMALS: clear to auscultation bilaterally AUSCULTATION: clear to auscultation bilaterally Cardio: COMMON NORMALS: regular rate, regular rhythm, S1 normal heart sound present, S2 normal heart sound present, No gallops present (Cardio), No murmurs present (Cardio), No rub (Cardio) and Peripheral pulses 2+ throughout RATE: regular rate RHYTHM: regular rhythm HEART SOUNDS: S1 normal heart sound present and S2 normal heart sound present PERIPHERAL PULSES: Peripheral pulses 2+ throughout GI: COMMON NORMALS: Normal to inspection, nondistended, normoactive bowel sounds present, Soft to palpation, non-tender, No hepatosplenomegaly present and no masses AUSCULTATION: Yes normoactive bowel sounds PALPATION: Yes Soft to palpation and Yes No hepatosplenomegaly present RECTAL EXAM: deferred Extremity: COMMON NORMALS: no clubbing, cyanosis or edema and no pedal edema Neuro: COMMON NORMALS: patient oriented x3 Urinary Catheter Management^: Casiano: Cath Placed During This Visit: yes Reason for Continuing Indwelling Catheter: Accurate Measurement of Urinary Output in Critically Ill Patients Urinary Catheter Date of Insertion: 10/16/20 Urinary Catheter Time of Insertion: 09:00 Data : 10/17/20 03:16 10/17/20 03:16 Micro: Microbiology 10/16/20 09:00 Urine Culture - Preliminary Urine Catheterized Gram Negative Rods A&P Assessment and plan (1) Acute hyperglycemia: Likely 2/2 to unconcontrolled DM. Last HbA1c: 14 ( 07/31 ) . Currently on Lantus 40 units BID - Will increase to 45 NovoLog 25 units 3 times daily Premeal High-dose sliding scale insulin Carbohydrate consistent diet. Monitor fingerstick. Will likely require additional adjustements for optimal control Status: Acute (2) Hyponatremia: Pseudohyponatremia due to hyperglycemia Corrected serum sodium 136 Improved Repeat labs in am Status: Acute (3) UTI (urinary tract infection): Ceftriaxone 1 g IV every 24 hours daily. 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 M.T 25 MG Q12 H Daily Eliquis 5 mg q12 h daily Status: Acute Qualifiers: Atrial fibrillation type: longstanding persistent Qualified Code(s): I48.11 - Longstanding persistent atrial fibrillation (8) Morbid obesity with BMI of 60.0-69.9, adult: Status: Chronic (9) DELMIS (obstructive sleep apnea): Status: Chronic (10) Congestive heart failure: Currently compensated. Lasix 40 mg I.V q12 h daily Status: Acute (11) Hypertension: Status: Acute Additional A&P Information Acute on chronic CKD - Baseline serum creatinine: 1.5-2 - Admission serum creatinine: 1.5 - Continue to monitor BMP - Avoid nephrotoxic - Creatinine slight increase with diuresis - On lasix - avoid overdiuresis - Repeat BMP in am Code Status :Full Code DVT PPX:Not needed on eliquis Disposition :Home vs SNF ( patient states she would like to consider SNF at discharge.) Attestations Medical Necessity Statement*: Will continue hospitalization for Diuresis as well as hyperglycemia managemnet Time Spent in Patient Care: Greater than 35 minutes (>than 50% of time spent in counselling and/or direct pt care on unit) . 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
[2020-10-17 16:54] LABS: Glucose Point of Care 424 mg/dL (70-110)
[2020-10-17 16:54] LABS: Glucose Point of Care 357 mg/dL (70-110)
[2020-10-17 16:54] LABS: Glucose Point of Care 410 mg/dL (70-110)
[2020-10-17 16:54] LABS: Glucose Point of Care 409 mg/dL (70-110)
[2020-10-17] MEDS: insulin glargine 100 units/1 mL 45 UNIT SUBCUT (17:01)
[2020-10-18] VITALS (19 sets, daily range): BP systolic 86–152; BP diastolic 59–90; PULSE 69–107; RESP 13–20; TEMP 36.4–37.3; O2SAT 96–100
[2020-10-18 04:08] LABS: Basophils # 0.1 10^3/uL (0.0-0.1); Basophils % 0.7 %; Eosinophils # 0.3 10^3/uL (0.0-0.8); Eosinophils % 2.9 %; Hematocrit 40.5 % (37.0-47.0); Hemoglobin 12.1 g/dL (11.5-15.3); Lymphocytes # 1.3 10^3/uL (0.8-4.8); Lymphocytes % 14.3 %; Mean Corpuscular HGB Conc 29.9 g/dL (30.0-36.0); Mean Corpuscular Hemoglobin 25.5 pg (28.0-34.0); Mean Corpuscular Volume 85.4 fL (81-99); Mean Platelet Volume 12.6 fL (7.4-10.4); Monocytes # 0.5 10^3/uL (0.2-0.9); Monocytes % 5.4 %; Neutrophils # 6.91 10^3/uL (1.8-7.7); Nucleated Red Blood Cells % 0 %; Platelet Count 222 10^3/cmm (130-400); Red Blood Count 4.74 10^6/uL (4.1-5.3); White Blood Count 9.1 10^3/uL (4.0-10.0)
[2020-10-18 04:26] LABS: Anion Gap 13.8 (5-19); Blood Urea Nitrogen 33 mg/dL (6-20); Calcium 8.5 mg/dL (8.5-10.5); Carbon Dioxide 26 mmol/L (22-29); Chloride 95 mmol/L (98-107); Glomerular Filtration Rate 24.5 mL/min (90-130); Glucose 496 mg/dL (65-115); Osmolality Calculated 301 mOsm/kg (285-295); Potassium 3.8 mmol/L (3.5-5.1); Sodium 131 mmol/L (136-145)
[2020-10-18] MEDS: levothyroxine 25 mcg Tablet PO (06:01)
--- NOTE | 2020-10-18 06:33 | PC.NURSE ---
Shift Summary; Patient rested well throughout shift. Over the course of the last few days, patient has c/o severe hunger that causes abdominal pain and leads to increased headache. RN educated pt on need to maintain, and treat high blood sugar. Each accucheck reports a BG above 300. Tx with prescribed novolog, and additional novolog as ordered by MD interpersonal communications professor. Increased thirst, hunger, and polyuria throughout each shift has been documented. RN advised patient to bring her home accucheck/glucose monitor in to hospital so that nursing staff could help her set up device and teach her how to use it upon discharge from the hospital, as pt states she has not used in because she does not know how to use device. 2750 u/o. Bed low and locked. Call light in reach. No needs verbalized at this time. Report given to wiliam hester RN.
[2020-10-18 07:42] LABS: Glucose Point of Care 505 mg/dL (70-110)
[2020-10-18 08:07] LABS: Glucose Point of Care 459 mg/dL (70-110)
[2020-10-18] MEDS: gabapentin 300 mg Capsule PO ×3 (08:43→20:41)
[2020-10-18] MEDS: ARIPiprazole 10 mg Tablet 5 MG PO (08:43)
[2020-10-18] MEDS: sertraline 100 mg Tablet PO (08:43)
[2020-10-18] MEDS: pantoprazole DR 40 mg Tablet PO (08:43)
[2020-10-18] MEDS: metoprolol tartrate 25 mg Tablet PO ×2 (08:43→20:42)
[2020-10-18] MEDS: buPROPion XL (24 HR) 150 mg Tablet PO (08:43)
[2020-10-18] MEDS: cefTRIAXone 1,000 MG in sodium chloride 0.9% (plus) 50 ML 100 MG IV (08:44)
[2020-10-18] MEDS: FUROsemide 10 mg/mL SDV 4mL 40 MG IVP (08:44)
[2020-10-18] MEDS: insulin glargine 100 units/1 mL 45 UNIT SUBCUT (08:44)
[2020-10-18 10:09] LABS: Glucose Point of Care 483 mg/dL (70-110)
[2020-10-18 11:09] LABS: Glucose Point of Care 442 mg/dL (70-110)
[2020-10-18] MEDS: HYDROcodone-acetaminophen 5-325 mg Tablet 1 TAB PO (12:46)
--- NOTE | 2020-10-18 13:26 | P.PN_ITS ---
Subjective Subjective: Interval history: Patient continue to be hyperglycemic overnight and feeling weak. no fever, chills, nausea or vomiting. remainder of vitals were stable, denied chest pain or dyspnea. Vitals/I&O/Wt Last Vital Signs Temp 98.2 F 10/18/20 08:00 Pulse 101 H 10/18/20 12:00 Resp 18 10/18/20 12:00 BP 116/72 10/18/20 12:00 Pulse Ox 99 10/18/20 10:02 10/17/20 10/18/20 10/18/20 22:59 06:59 14:59 Intake Total 575 / 1925 450 / 2375 1250 / 1250 Output Total 2250 / 4650 1350 / 6000 2450 / 2450 Balance -1675 / -2725 -900 / -3625 -1200 / -1200 Physical Exam Const: COMMON NORMALS: patient oriented x3 HENMT: COMMON NORMALS: normocephalic and atraumatic HEAD & SCALP: normocephalic and atraumatic Chest: CHEST: Yes Symmetrical chest wall rise Resp: COMMON NORMALS: clear to auscultation bilaterally AUSCULTATION: clear to auscultation bilaterally Cardio: COMMON NORMALS: regular rate, regular rhythm, S1 normal heart sound present, S2 normal heart sound present, No gallops present (Cardio), No murmurs present (Cardio), No rub (Cardio) and Peripheral pulses 2+ throughout RATE: regular rate RHYTHM: regular rhythm HEART SOUNDS: S1 normal heart sound present and S2 normal heart sound present PERIPHERAL PULSES: Peripheral pulses 2+ throughout GI: COMMON NORMALS: Normal to inspection, nondistended, normoactive bowel sounds present, Soft to palpation, non-tender, No hepatosplenomegaly present and no masses AUSCULTATION: Yes normoactive bowel sounds PALPATION: Yes Soft t o palpation and Yes No hepatosplenomegaly present RECTAL EXAM: deferred Extremity: COMMON NORMALS: no clubbing, cyanosis or edema and no pedal edema Neuro: COMMON NORMALS: patient oriented x3 Urinary Catheter Management^: Casiano: Cath Placed During This Visit: yes Reason for Continuing Indwelling Catheter: Accurate Measurement of Urinary Output in Critically Ill Patients Urinary Catheter Date of Insertion: 10/16/20 Urinary Catheter Time of Insertion: 09:00 Data : 10/18/20 03:50 10/18/20 03:50 Micro: Microbiology 10/16/20 09:00 Urine Culture - Final Urine Catheterized Escherichia coli A&P Assessment and plan (1) Acute hyperglycemia: Likely 2/2 to unconcontrolled DM. Last HbA1c: 14 ( 07/31 ) . Currently on Lantus 40 units BID - Will increase to 50 BID NovoLog 30 units 3 times daily Premeal High-dose sliding scale insulin Carbohydrate consistent diet. Monitor fingerstick. Will likely require additional adjustements for optimal control May consult with endocrinology Councled on diet controlled - refinery operator alkylation consult Status: Acute (2) Hyponatremia: Pseudohyponatremia due to hyperglycemia Corrected serum sodium 136 Improved Repeat labs in am Status: Acute (3) UTI (urinary tract infection): Ceftriaxone 1 g IV every 24 hours daily. Follow urine culture Casiano in place - Donn Davison on culture Status: Acute (4) Type 2 DM with CKD stage 4 and hypertension: management as noted above Status: Acute (5) Uncontrolled type 2 diabetes with neuropathy: Status: Acute (6) Hypothyroidism: Levothyroxine 25 mcg po daily Status: Acute Qualifiers: Hypothyroidism type: acquired Qualified Code(s): E03.9 - Hypothyroidism, unspecified (7) Atrial fibrillation: Currently in A.fib with rate arpund 100. M.T 25 MG Q12 H Daily Eliquis 5 mg q12 h daily resumed Status: Acute Qualifiers: Atrial fibrillation type: longstanding persistent Qualified Code(s): I48.11 - Longstanding persistent atrial fibrillation (8) Morbid obesity with BMI of 60.0-69.9, adult: Status: Chronic (9) DELMIS (obstructive sleep apnea): Status: Chronic (10) Congestive heart failure: Currently compensated. Lasix changed to home dose 80 mg PO BID Status: Acute (11) Hypertension: Status: Acute Additional A&P Information Acute on chronic CKD - Baseline serum creatinine: 1.5-2 - Admission serum creatinine: 1.5 - > increased to 2.1 - Continue to monitor BMP - Avoid nephrotoxic - Creatinine slight increase with dieresis - On lasix - avoid overdiuresis - Repeat BMP in am - Will consider nephrology consult Debility - Consult PT/OT Transfer to [facility] Code Status :Full Code DVT PPX:Not needed on eliquis - Was on lovenox - stopped Disposition :Home vs SNF ( patient states she would like to consider SNF at discharge.) - Dw case management Attestations Medical Necessity Statement*: Will require further hospital stay for management of hyperglycemia, [place] on ckd and UTI on IV rocephin as well as arranging placement. Time Spent in Patient Care: Greater than 35 minutes (>than 50% of time spent in counselling and/or direct pt care on unit) . Coding Level of Care Code Acute Hand Stamper for Chg Fwd Diagnoses Acute hyperglycemia R73.9 Hyponatremia E87.1 UTI (urinary tract infection) N39.0 Type 2 DM with CKD stage 4 and hypertension E11.22; I12.9; N18.4 Uncontrolled type 2 diabetes with neuropathy E11.40; E11.65 Hypothyroidism E03.9 Hypothyroidism type: acquired Atrial fibrillation I48.11 Atrial fibrillation type: longstanding persistent Morbid obesity with BMI of 60.0-69.9, adult E66.01; Z68.44 DELMIS (obstructive sleep apnea) G47.33 Congestive heart failure I50.9 Hypertension I10
--- NOTE | 2020-10-18 16:49 | PC.NURSE ---
Patient transferred from icu to med surg via w/c. O2 in place at 4L via n/c. Stable at time of transfer. Receiving nurse at bedside. Denies c/o.
[2020-10-18 17:00] LABS: Glucose Point of Care 391 mg/dL (70-110)
--- NOTE | 2020-10-18 17:04 | PC.RESP ---
Pulmonary Rehab information sent to patient.
[2020-10-18] MEDS: insulin glargine 100 units/1 mL 50 UNIT SUBCUT (17:23)
[2020-10-18] MEDS: FUROsemide 40 mg Tablet 80 MG PO (17:24)
[2020-10-18 20:24] LABS: Glucose Point of Care 315 mg/dL (70-110)
[2020-10-18] MEDS: apixaban 5 mg Tablet PO (20:41)
[2020-10-19] VITALS (11 sets, daily range): BP systolic 94–115; BP diastolic 60–88; PULSE 74–99; RESP 17–20; TEMP 36.4–37.3; O2SAT 97–100
[2020-10-19] MEDS: buPROPion SR (12 HR) 100 mg Tablet 200 MG PO (06:05)
[2020-10-19] MEDS: ARIPiprazole 10 mg Tablet 5 MG PO ×2 (06:06→08:22)
[2020-10-19] MEDS: levothyroxine 25 mcg Tablet PO (06:06)
[2020-10-19] MEDS: FUROsemide 40 mg Tablet 80 MG PO ×2 (06:06→17:37)
[2020-10-19 06:21] LABS: Basophils % 0.4 %; Eosinophils # 0.2 10^3/uL (0.0-0.8); Eosinophils % 2.4 %; Hematocrit 37.4 % (37.0-47.0); Hemoglobin 11.3 g/dL (11.5-15.3); Lymphocytes # 1.2 10^3/uL (0.8-4.8); Lymphocytes % 12.9 %; Mean Corpuscular HGB Conc 30.2 g/dL (30.0-36.0); Mean Corpuscular Hemoglobin 25.5 pg (28.0-34.0); Mean Corpuscular Volume 84.2 fL (81-99); Mean Platelet Volume 12.1 fL (7.4-10.4); Monocytes # 0.6 10^3/uL (0.2-0.9); Monocytes % 6.9 %; Neutrophils # 6.97 10^3/uL (1.8-7.7); Neutrophils % 76.8 %; Nucleated Red Blood Cells % 0 %; Platelet Count 232 10^3/cmm (130-400); Red Blood Count 4.44 10^6/uL (4.1-5.3); Red Cell Distribution Width 15.9 % (12.1-15.1); White Blood Count 9.1 10^3/uL (4.0-10.0)
[2020-10-19 06:39] LABS: Glucose Point of Care 463 mg/dL (70-110)
[2020-10-19] MEDS: insulin glargine 100 units/1 mL 50 UNIT SUBCUT (08:21)
[2020-10-19] MEDS: pantoprazole DR 40 mg Tablet PO (08:22)
[2020-10-19] MEDS: cefTRIAXone 1,000 MG in sodium chloride 0.9% (plus) 50 ML 100 MG IV (08:23)
[2020-10-19] MEDS: sertraline 100 mg Tablet PO (08:23)
[2020-10-19] MEDS: gabapentin 300 mg Capsule PO ×3 (08:23→20:28)
[2020-10-19] MEDS: metoprolol tartrate 25 mg Tablet PO ×2 (08:33→20:28)
[2020-10-19] MEDS: apixaban 5 mg Tablet PO ×2 (08:33→20:28)
[2020-10-19] MEDS: HYDROcodone-acetaminophen 5-325 mg Tablet 1 TAB PO ×3 (08:50→18:14)
[2020-10-19 09:20] LABS: Procalcitonin 0.23 ng/mL (0-0.5)
[2020-10-19 09:32] LABS: Alanine Aminotransferase 10 U/L (0-33); Alkaline Phosphatase 108 IU/L (35-105); Anion Gap 17.4 (5-19); Aspartate Amino Transferase 10 U/L (0-32); Blood Urea Nitrogen 36 mg/dL (6-20); Calcium 8.3 mg/dL (8.5-10.5); Carbon Dioxide 25 mmol/L (22-29); Chloride 93 mmol/L (98-107); Globulin 2.8 g/dL (1.3-4.6); Glomerular Filtration Rate 27.4 mL/min (90-130); Glucose 417 mg/dL (65-115); Osmolality Calculated 300 mOsm/kg (285-295); Potassium 3.4 mmol/L (3.5-5.1); Sodium 132 mmol/L (136-145); Total Bilirubin 0.6 mg/dL (0.15-1.2); Total Protein 5.8 g/dL (6.6-8.7)
[2020-10-19 10:57] LABS: Glucose Point of Care 484 mg/dL (70-110)
[2020-10-19] MEDS: ondansetron 2 mg/ML SDV 2 mL 4 MG IVP (11:00)
--- NOTE | 2020-10-19 16:08 | P.PN_ITS ---
Subjective Subjective: Interval history: no new complaints overnight continues to be hyperglycemic Medications: Reviewed: Yes Vitals/I&O/Wt Last Vital Signs Temp 97.9 F 10/19/20 15:36 Pulse 99 10/19/20 15:36 Resp 18 10/19/20 15:36 BP 106/71 10/19/20 15:36 Pulse Ox 98 10/19/20 15:36 10/19/20 10/19/20 10/19/20 06:59 14:59 22:59 Intake Total 2240 / 4102.5 1010 / 1010 Output Total 700 / 3750 1300 / 1300 750 / 2050 Balance 1540 / 352.5 -290 / -290 -750 / -1040 Physical Exam Const: COMMON NORMALS: patient oriented x3 HENMT: COMMON NORMALS: normocephalic and atraumatic HEAD & SCALP: normocephalic and atraumatic Chest: CHEST: Yes Symmetrical chest wall rise Resp: COMMON NORMALS: clear to auscultation bilaterally AUSCULTATION: clear to auscultation bilaterally Cardio: COMMON NORMALS: regular rate, regular rhythm, S1 normal heart sound present, S2 normal heart sound present, No gallops present (Cardio), No murmurs present (Cardio), No rub (Cardio) and Peripheral pulses 2+ throughout RATE: regular rate RHYTHM: regular rhythm HEART SOUNDS: S1 normal heart sound present and S2 normal heart sound present PERIPHERAL PULSES: Peripheral pulses 2+ throughout GI: COMMON NORMALS: Normal to inspection, nondistended, normoactive bowel sounds present, Soft to palpation, non-tender, No hepatosplenomegaly present and no masses AUSCULTATION: Yes normoactive bowel sounds PALPATION: Yes Soft to palpation and Yes No hepatosplenomegaly present RECTAL EXAM: deferred Extremity: COMMON NORMALS: no clubbing, cyanosis or edema and no pedal edema Neuro: COMMON NORMALS: patient oriented x3 Urinary Catheter Management^: Casiano: Cath Placed During This Visit: yes, but has since been removed by the nurse Reason for Continuing Indwelling Catheter: Decision to DC Catheter Urinary Catheter Date of Insertion: 10/16/20 Urinary Catheter Time of Insertion: 09:00 Date Urinary Catheter Removed: 10/18/20 Time Urinary Catheter Discontinued: 14:00 Data : 10/19/20 05:44 10/19/20 05:37 A&P Assessment and plan (1) Acute hyperglycemia: Likely 2/2 to unconcontrolled DM. Last HbA1c: 14 ( 07/31 ) . NovoLog 30 units 3 times daily Premeal High-dose sliding scale insulin Carbohydrate consistent diet. Monitor fingerstick. Will likely require additional adjustments for optimal control May consult with endocrinology Councled on diet controlled - habitat management coordinator consult Lantus increased to 55 units BID Status: Acute (2) Hyponatremia: Pseudohyponatremia due to hyperglycemia Corrected serum sodium 136 Improved Repeat labs in am Status: Acute (3) UTI (urinary tract infection): Ceftriaxone 1 g IV every 24 hours daily. Follow urine culture Lory in place - Donn Davison on culture total 7 days of treatment Status: Acute (4) Type 2 DM with CKD stage 4 and hypertension: management as noted above Status: Acute (5) Uncontrolled type 2 diabetes with neuropathy: Status: Acute (6) Hypothyroidism: Levothyroxine 25 mcg po daily Status: Acute Qualifiers: Hypothyroidism type: acquired Qualified Code(s): E03.9 - Hypothyroidism, unspecified (7) Atrial fibrillation: Currently in A.fib with rate arpund 100. M.T 25 MG Q12 H Daily Eliquis 5 mg q12 h daily resumed Status: Acute Qualifiers: Atrial fibrillation type: longstanding persistent Qualified Code(s): I48.11 - Longstanding persistent atrial fibrillation (8) Morbid obesity with BMI of 60.0-69.9, adult: Status: Chronic (9) DELMIS (obstructive sleep apnea): Status: Chronic (10) Congestive heart failure: Currently compensated. Lasix changed to home dose 80 mg PO BID Status: Acute (11) Hypertension: Status: Acute Additional A&P Information Acute on chronic CKD - Baseline serum creatinine: 1.5-2 - Admission serum creatinine: 1.5 - > increased to 1.9 - Continue to monitor BMP - Avoid nephrotoxic - Creatinine slight increase with dieresis - On lasix - avoid overdiuresis - Repeat BMP in am - Will consider nephrology consult - D/C lory Debility - Consult PT/OT Transfer to [facility] Code Status :Full Code DVT PPX:Not needed on eliquis - Was on lovenox - stopped Disposition :PT/OT - placement arrangement Attestations Medical Necessity Statement*: Require further hospitalization for IV antibiotic, blood sugar management and placement arrangement Time Spent in Patient Care: Greater than 35 minutes (>than 50% of time spent in counselling and/or direct pt care on unit) . Coding Level of Care Code Acute Cotton Header for Chg Fwd Diagnoses Acute hyperglycemia R73.9 Hyponatremia E87.1 UTI (urinary tract infection) N39.0 Type 2 DM with CKD stage 4 and hypertension E11.22; I12.9; N18.4 Uncontrolled type 2 diabetes with neuropathy E11.40; E11.65 Hypothyroidism E03.9 Hypothyroidism type: acquired Atrial fibrillation I48.11 Atrial fibrillation type: longstanding persistent Morbid obesity with BMI of 60.0-69.9, adult E66.01; Z68.44 DELMIS (obstructive sleep apnea) G47.33 Congestive heart failure I50.9 Hypertension I10
[2020-10-19 17:05] LABS: Glucose Point of Care 353 mg/dL (70-110)
[2020-10-19] MEDS: insulin glargine 100 units/1 mL 55 UNIT SUBCUT (18:15)
[2020-10-19] MEDS: nystatin powder 15 gm Btl 1 APPLIC TOPICAL (18:15)
[2020-10-19 20:36] LABS: Glucose Point of Care 328 mg/dL (70-110)
[2020-10-20] VITALS (10 sets, daily range): BP systolic 95–112; BP diastolic 59–79; PULSE 70–88; RESP 16–18; TEMP 36.1–36.6; O2SAT 96–100
[2020-10-20] MEDS: FUROsemide 40 mg Tablet 80 MG PO ×2 (04:29→17:42)
[2020-10-20] MEDS: buPROPion SR (12 HR) 100 mg Tablet 200 MG PO (04:30)
[2020-10-20] MEDS: ARIPiprazole 10 mg Tablet 5 MG PO ×2 (04:30→08:54)
[2020-10-20] MEDS: levothyroxine 25 mcg Tablet PO (06:05)
[2020-10-20 06:24] LABS: Glucose Point of Care 290 mg/dL (70-110)
[2020-10-20 06:27] LABS: Basophils % 0.4 %; Eosinophils # 0.3 10^3/uL (0.0-0.8); Eosinophils % 3.2 %; Hematocrit 40.6 % (37.0-47.0); Hemoglobin 12.1 g/dL (11.5-15.3); Lymphocytes # 1.1 10^3/uL (0.8-4.8); Lymphocytes % 12.8 %; Mean Corpuscular HGB Conc 29.8 g/dL (30.0-36.0); Mean Corpuscular Hemoglobin 25.5 pg (28.0-34.0); Mean Corpuscular Volume 85.7 fL (81-99); Mean Platelet Volume 11.9 fL (7.4-10.4); Monocytes # 0.5 10^3/uL (0.2-0.9); Monocytes % 5.8 %; Neutrophils # 6.55 10^3/uL (1.8-7.7); Neutrophils % 77.2 %; Nucleated Red Blood Cells % 0 %; Platelet Count 238 10^3/cmm (130-400); Red Blood Count 4.74 10^6/uL (4.1-5.3); Red Cell Distribution Width 15.6 % (12.1-15.1); White Blood Count 8.5 10^3/uL (4.0-10.0)
[2020-10-20 06:54] LABS: Alanine Aminotransferase 12 U/L (0-33); Albumin Level 3.4 g/dL (3.5-5.2); Alkaline Phosphatase 115 IU/L (35-105); Anion Gap 14.4 (5-19); Aspartate Amino Transferase 13 U/L (0-32); Blood Urea Nitrogen 37 mg/dL (6-20); Calcium 8.7 mg/dL (8.5-10.5); Carbon Dioxide 29 mmol/L (22-29); Chloride 96 mmol/L (98-107); Glomerular Filtration Rate 27.4 mL/min (90-130); Glucose 290 mg/dL (65-115); Osmolality Calculated 301 mOsm/kg (285-295); Potassium 3.4 mmol/L (3.5-5.1); Sodium 136 mmol/L (136-145); Total Bilirubin 0.6 mg/dL (0.15-1.2); Total Protein 6.4 g/dL (6.6-8.7)
[2020-10-20] MEDS: insulin glargine 100 units/1 mL 55 UNIT SUBCUT ×2 (08:50→17:44)
[2020-10-20] MEDS: nystatin powder 15 gm Btl 1 APPLIC TOPICAL ×2 (08:53→17:44)
[2020-10-20] MEDS: pantoprazole DR 40 mg Tablet PO (08:53)
[2020-10-20] MEDS: apixaban 5 mg Tablet PO ×2 (08:53→20:50)
[2020-10-20] MEDS: gabapentin 300 mg Capsule PO ×3 (08:53→20:50)
[2020-10-20] MEDS: sertraline 100 mg Tablet PO (08:53)
[2020-10-20] MEDS: metoprolol tartrate 25 mg Tablet PO ×2 (08:53→20:50)
[2020-10-20] MEDS: cefTRIAXone 1,000 MG in sodium chloride 0.9% (plus) 50 ML 100 MG IV (08:55)
[2020-10-20] MEDS: ondansetron 2 mg/ML SDV 2 mL 4 MG IVP (09:17)
--- NOTE | 2020-10-20 10:39 | DCPLANNER ---
Updated and reviewed IM with pt. No questions, copy provided.
[2020-10-20 11:04] LABS: Glucose Point of Care 359 mg/dL (70-110)
[2020-10-20] MEDS: HYDROcodone-acetaminophen 5-325 mg Tablet 1 TAB PO ×2 (11:43→22:02)
[2020-10-20] MEDS: bisacodyl 5 mg Tablet 10 MG PO (11:43)
--- NOTE | 2020-10-20 14:04 | PM.PN ---
Subjective Subjective: Interval history: no new complaints overnight continues to be hyperglycemic Medications: Reviewed: Yes Vitals/I&O/Wt Last Vital Signs Temp 97.0 F L 10/20/20 12:00 Pulse 70 10/20/20 12:00 Resp 16 10/20/20 12:00 BP 112/79 10/20/20 12:00 Pulse Ox 97 10/20/20 12:00 10/19/20 10/20/20 10/20/20 22:59 06:59 14:59 Intake Total 100 / 1110 1080 / 1080 Output Total 1650 / 2950 900 / 3850 2500 / 2500 Balance -1650 / -1940 -800 / -2740 -1420 / -1420 Physical Exam Const: COMMON NORMALS: patient oriented x3 HENMT: COMMON NORMALS: normocephalic and atraumatic HEAD & SCALP: normocephalic and atraumatic Chest: CHEST: Yes Symmetrical chest wall rise Resp: COMMON NORMALS: clear to auscultation bilaterally AUSCULTATION: clear to auscultation bilaterally Cardio: COMMON NORMALS: regular rate, regular rhythm, S1 normal heart sound present, S2 normal heart sound present, No gallops present (Cardio), No murmurs present (Cardio), No rub (Cardio) and Peripheral pulses 2+ throughout RATE: regular rate RHYTHM: regular rhythm HEART SOUNDS: S1 normal heart sound present and S2 normal heart sound present PERIPHERAL PULSES: Peripheral pulses 2+ throughout GI: COMMON NORMALS: Normal to inspection, nondistended, normoactive bowel sounds present, Soft to palpation, non-tender, No hepatosplenomegaly present and no masses AUSCULTATION: Yes normoactive bowel sounds PALPATION: Yes Soft to palpation and Yes No hepatosplenomegaly present RECTAL EXAM: deferred Extremity: COMMON NORMALS: no clubbing, cyanosis or edema and no pedal edema Neuro: COMMON NORMALS: patient oriented x3 Urinary Catheter Management^: Henley: Cath Placed During This Visit: yes, but has since been removed by the nurse Reason for Continuing Indwelling Catheter: Decision to DC Catheter Urinary Catheter Date of Insertion: 10/16/20 Urinary Catheter Time of Insertion: 09:00 Date Urinary Catheter Removed: 10/18/20 Time Urinary Catheter Discontinued: 14:00 Data : 10/20/20 05:56 10/20/20 05:56 A&P Assessment and plan (1) Acute hyperglycemia: Uncontrolled DM in setting of UTI Last HbA1c: 14 ( 07/31 ) . NovoLog 30 units 3 times daily Premeal High-dose sliding scale insulin Carbohydrate consistent diet. Monitor fingerstick. 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 Status: Acute (3) UTI (urinary tract infection): Ceftriaxone 1 g IV every 24 hours daily. Follow urine culture Henley in place - D.C Saman on culture total 7 days of treatment Status: Acute (4) Type 2 DM with CKD stage 4 and hypertension: management as noted above Status: Acute (5) Uncontrolled type 2 diabetes with neuropathy: Status: Acute (6) Hypothyroidism: Levothyroxine 25 mcg po daily Status: Acute Qualifiers: Hypothyroidism type: acquired Qualified Code(s): E03.9 - Hypothyroidism, unspecified (7) Atrial fibrillation: Currently in A.fib with rate arpund 100. M.T 25 MG Q12 H Daily Eliquis 5 mg q12 h daily resumed Status: Acute Qualifiers: Atrial fibrillation type: longstanding persistent Qualified Code(s): I48.11 - Longstanding persistent atrial fibrillation (8) Morbid obesity with BMI of 60.0-69.9, adult: Status: Chronic (9) DELMIS (obstructive sleep apnea): Status: Chronic (10) Congestive heart failure: Currently compensated. Lasix changed to home dose 80 mg PO BID Status: Acute (11) Hypertension: Status: Acute Additional A&P Information Acute on chronic CKD - Baseline serum creatinine: 1.5-2 - Admission serum creatinine: 1.5 - > increased to 1.9 - Continue to monitor BMP - Avoid nephrotoxic - Creatinine slight increase with dieresis - Repeat BMP in am - Will consider nephrology consult - D/C henley Debility - Consult PT/OT Transfer to [facility] Code Status :Full Code DVT PPX:Not needed on eliquis - Was on lovenox - stopped Disposition :PT/OT - placement arrangement. Likely to d/c tomorrow if arranged. Attestations Medical Necessity Statement*: will require further hospitalization until discharge placement can be arranged Time Spent in Patient Care: Greater than 35 minutes (>than 50% of time spent in counselling and/or direct pt care on unit). Coding Level of Care Code Acute Monogram Operator for Chg Fwd Diagnoses Acute hyperglycemia R73.9 Hyponatremia E87.1 UTI (urinary tract infection) N39.0 Type 2 DM with CKD stage 4 and hypertension E11.22; I12.9; N18.4 Uncontrolled type 2 diabetes with neuropathy E11.40; E11.65 Hypothyroidism E03.9 Hypothyroidism type: acquired Atrial fibrillation I48.11 Atrial fibrillation type: longstanding persistent Morbid obesity with BMI of 60.0-69.9, adult E66.01; Z68.44 DELMIS (obstructive sleep apnea) G47.33 Congestive heart failure I50.9 Hypertension I10
[2020-10-20 16:46] LABS: Glucose Point of Care 242 mg/dL (70-110)
[2020-10-20 21:49] LABS: Glucose Point of Care 451 mg/dL (70-110)
[2020-10-21] VITALS (8 sets, daily range): BP systolic 95–120; BP diastolic 61–74; PULSE 48–111; RESP 16–18; TEMP 36.2–37; O2SAT 90–99
[2020-10-21] MEDS: buPROPion SR (12 HR) 100 mg Tablet 200 MG PO (04:37)
[2020-10-21] MEDS: ARIPiprazole 10 mg Tablet 5 MG PO ×2 (04:37→08:40)
[2020-10-21] MEDS: FUROsemide 40 mg Tablet 80 MG PO (04:37)
[2020-10-21] MEDS: levothyroxine 25 mcg Tablet PO (06:06)
[2020-10-21] MEDS: HYDROcodone-acetaminophen 5-325 mg Tablet 1 TAB PO (06:29)
[2020-10-21 07:02] LABS: Glucose Point of Care 348 mg/dL (70-110)
[2020-10-21 08:01] LABS: Basophils % 0.5 %; Eosinophils # 0.3 10^3/uL (0.0-0.8); Eosinophils % 3.6 %; Hematocrit 39.7 % (37.0-47.0); Hemoglobin 11.8 g/dL (11.5-15.3); Lymphocytes # 1.2 10^3/uL (0.8-4.8); Lymphocytes % 16.1 %; Mean Corpuscular HGB Conc 29.7 g/dL (30.0-36.0); Mean Corpuscular Hemoglobin 25.5 pg (28.0-34.0); Mean Corpuscular Volume 85.7 fL (81-99); Mean Platelet Volume 12.2 fL (7.4-10.4); Monocytes # 0.4 10^3/uL (0.2-0.9); Monocytes % 4.7 %; Neutrophils # 5.54 10^3/uL (1.8-7.7); Neutrophils % 74.6 %; Nucleated Red Blood Cells % 0 %; Platelet Count 235 10^3/cmm (130-400); Red Blood Count 4.63 10^6/uL (4.1-5.3); Red Cell Distribution Width 15.8 % (12.1-15.1); White Blood Count 7.4 10^3/uL (4.0-10.0)
[2020-10-21 08:13] LABS: Alanine Aminotransferase 16 U/L (0-33); Albumin Level 3.4 g/dL (3.5-5.2); Alkaline Phosphatase 122 IU/L (35-105); Anion Gap 14.3 (5-19); Aspartate Amino Transferase 16 U/L (0-32); Blood Urea Nitrogen 38 mg/dL (6-20); Calcium 8.6 mg/dL (8.5-10.5); Carbon Dioxide 30 mmol/L (22-29); Chloride 95 mmol/L (98-107); Glomerular Filtration Rate 29.2 mL/min (90-130); Glucose 335 mg/dL (65-115); Osmolality Calculated 304 mOsm/kg (285-295); Potassium 3.3 mmol/L (3.5-5.1); Sodium 136 mmol/L (136-145); Total Bilirubin 0.6 mg/dL (0.15-1.2); Total Protein 6.4 g/dL (6.6-8.7)
[2020-10-21] MEDS: sertraline 100 mg Tablet PO (08:40)
[2020-10-21] MEDS: cefTRIAXone 1,000 MG in sodium chloride 0.9% (plus) 50 ML 100 MG IV (08:40)
[2020-10-21] MEDS: pantoprazole DR 40 mg Tablet PO (08:41)
[2020-10-21] MEDS: gabapentin 300 mg Capsule PO ×2 (08:41→15:05)
[2020-10-21] MEDS: insulin glargine 100 units/1 mL 55 UNIT SUBCUT (08:43)
[2020-10-21] MEDS: apixaban 5 mg Tablet PO (08:57)
[2020-10-21] MEDS: nystatin powder 15 gm Btl 1 APPLIC TOPICAL (08:57)
[2020-10-21] MEDS: metoprolol tartrate 25 mg Tablet PO (08:57)
--- NOTE | 2020-10-21 10:01 | P.DS_ITS ---
Discharge Providers Date of Admission: 10/15/20 15:20 Date of Discharge: October 21, 2020 Attending Provider at Admission: Duncan Higgins MD Attending Provider at Discharge: Curtis Echols Primary Care Provider: Mervat Nguyen Diagnoses at Discharge Discharge Diagnosis (1) Acute hyperglycemia: Status: Acute (2) Hyponatremia: Status: Acute (3) UTI (urinary tract infection): Status: Acute (4) Type 2 DM with CKD stage 4 and hypertension: Status: Acute (5) Uncontrolled type 2 diabetes with neuropathy: Status: Acute (6) Hypothyroidism: Status: Acute Qualifiers: Hypothyroidism type: acquired Qualified Code(s): E03.9 - Hypothyroidism, unspecified (7) Atrial fibrillation: Status: Acute Qualifiers: Atrial fibrillation type: longstanding persistent Qualified Code(s): I48.11 - Longstanding persistent atrial fibrillation (8) Morbid obesity with BMI of 60.0-69.9, adult: Status: Chronic (9) DELMIS (obstructive sleep apnea): Status: Chronic (10) Congestive heart failure: Status: Acute (11) Hypertension: Status: Acute Reason for Visit Reason for Visit: N/V/D, HYPERGLYCEMIA Hospital Course Hospital Course Pleasant 55-year-old lady with HTN, DELMIS, chronic A. fib on Eliquis, morbid obesity, asthma, COPD on chronic 3 L oxygen, HFpEF, DM 2, last A1c 14 on 07/31 was admitted due to nausea, vomiting, generalized weakness, extremely elevated blood glucose. Was treated with insulin drip, switched back to subcutaneous dosing, with addition of short acting insulin in addition to glargine. Pseudohyponatremia resolved. Was also treated for urinary tract infection with Rocephin subsequently growing E. coli with resistance to a number of antibiotics for which she completed 6 days of antibiotic treatment in the hospital. Glucose gradually continues to improve. At this time long-acting insulin is increased t o 60 units twice daily. Please monitor for hypoglycemia. Continue also short acting insulin 30 units 3 times daily, and will continue sliding scale correction dose as well. She is asked to follow-up with endocrinology in office due to difficult to control diabetes. Nystatin cream for candidal intertrigo under the right breast. Physical Exam Const: COMMON NORMALS: no acute distress, patient oriented x3 and alert GENERAL APPEARANCE: cooperative and comfortable NUTRITIONAL APPEARANCE: obese ORIENTATION/CONSCIOUSNESS: Yes awake HENMT: COMMON NORMALS: oropharynx normal Neck/C-Spine: COMMON NORMALS: no JVD Resp: COMMON NORMALS: normal respiratory effort and clear to auscultation bilaterally AUSCULTATION: clear to auscultation bilaterally Cardio: COMMON NORMALS: no JVD, regular rhythm, S1 normal heart sound present, S2 normal heart sound present and No murmurs present (Cardio) RHYTHM: regular rhythm HEART SOUNDS: S1 normal heart sound present and S2 normal heart sound present GI: COMMON NORMALS: Normal to inspection, nondistended, normoactive bowel sounds present, Soft to palpation and non-tender PALPATION: Yes Soft to palpation Extremity: COMMON NORMALS: no joint enlargement and no pedal edema Neuro: COMMON NORMALS: patient oriented x3 and moves all extremities SENSORIUM/ORIENTATION: Yes alert Skin: OTHER: Candidal rash under the right breast Urinary Catheter Management^: Casiano: Cath Placed During This Visit: yes, but has since been removed by the nurse Reason for Continuing Indwelling Catheter: Decision to DC Catheter Urinary Catheter Date of Insertion: 10/16/20 Urinary Catheter Time of Insertion: 09:00 Date Urinary Catheter Removed: 10/18/20 Time Urinary Catheter Discontinued: 14:00 Discharge Data Data Completed and Pending: Labs from last 24 hours 10/21/20 10/21/20 10/21/20 06:39 06:39 06:24 WBC 7.4 RBC 4.63 Hgb 11.8 Hct 39.7 MCV 85.7 MCH 25.5 L MCHC 29.7 L RDW 15.8 H Plt Count 235 MPV 12.2 H Neut % (Auto) 74.6 Lymph % (Auto) 16.1 [place] % (Auto) 4.7 Eos % (Auto) 3.6 Baso % (Auto) 0.5 Neut # (Auto) 5.54 Lymph # (Auto) 1.2 [place] # (Auto) 0.4 Eos # (Auto) 0.3 Baso # (Auto) 0.0 Nucleated RBC % (a uto) 0 Nucleated RBCs # 0.0 Sodium 136 Potassium 3.3 L Chloride 95 L Carbon Dioxide 30 H Anion Gap 14.3 BUN 38 H Creatinine 1.8 H GFR Calculation 29.2 L Glucose 335 H POC Glucose 348 H Calculated Osmolal ity 304 H Calcium 8.6 Total Bilirubin 0.6 AST 16 ALT 16 Alkaline Phosphata se 122 H Total Protein 6.4 L Albumin 3.4 L Globulin 3.0 10/20/20 10/20/20 10/20/20 19:44 16:26 10:51 WBC RBC Hgb Hct MCV MCH MCHC RDW Plt Count MPV Neut % (Auto) Lymph % (Auto) [place] % (Auto) Eos % (Auto) Baso % (Auto) Neut # (Auto) Lymph # (Auto) [place] # (Auto) Eos # (Auto) Baso # (Auto) Nucleated RBC % (a uto) Nucleated RBCs # Sodium Potassium Chloride Carbon Dioxide Anion Gap BUN Creatinine GFR Calculation Glucose POC Glucose 451 H 242 H 359 H Calculated Osmolal ity Calcium Total Bilirubin AST ALT Alkaline Phosphata se Total Protein Albumin Globulin Vitals: Last Vital Signs Temp 98.6 F 10/21/20 07:40 Pulse 48 L 10/21/20 08:22 Resp 18 10/21/20 08:22 BP 103/69 10/21/20 03:39 Pulse Ox 90 10/21/20 08:22 Discharge Plan Discharge Patient Disposition: Xfer SNF Condition: Stable Prescriptions: New insulin aspart U-100 [Novolog U-100 Insulin aspart] 100 unit/mL Solution See Rx Instructions .ROUTE .COMPLEX Qty: 10 RF: 0 insulin aspart U-100 [Novolog U-100 Insulin aspart] 100 unit/mL Solution 30 unit SUBCUT TIDAC Qty: 10 RF: 0 Continued gabapentin 300 mg capsule 300 mg PO TID@0500,1300,2100 RF: 0 pantoprazole 40 mg tablet,delayed release (DR/EC) 40 mg PO DAILY@0500 RF: 0 ondansetron HCl 4 mg tablet 4 mg PO Q6H PRN (Reason: Nausea And Vomiting) RF: 0 levothyroxine 25 mcg tablet 25 mcg PO DAILY@0500 RF: 0 potassium chloride 10 mEq Tablet Extended Release 10 meq PO BID@0500,1700 RF: 0 furosemide 80 mg Tablet 80 mg PO BID@0500,1700 RF: 0 aripiprazole [Abilify] 5 mg tablet 5 mg PO DAILY@0500 RF: 0 cranberry 500 mg Capsule 500 mg PO DAILY@0500 RF: 0 Breo Ellipta 100-25 mcg/dose Blister With Device 1 inh INHALATION Q24H RF: 0 Incruse Ellipta 62.5 mcg/actuation Blister With Device 1 inh INHALATION DAILY@0500 RF: 0 sumatriptan succinate [Imitrex] 25 mg tablet 25 mg PO PRN RF: 0 metoprolol tartrate 25 mg tablet 25 mg PO Q12H RF: 0 Eliquis 5 mg tablet 5 mg PO Q12H RF: 0 Zoloft 100 mg tablet 100 mg PO DAILY@0500 RF: 0 Wellbutrin SR 200 mg tablet sustained-release 12 hr 200 mg PO DAILY@0500 RF: 0 hydrocodone-acetaminophen 10-325 mg tablet 1 tab PO Q4H MDD 6 tabs PRN (Reason: Pain) Qty: 12 RF: 0 Changed nystatin 100,000 unit/gram cream 1 applic topical BID Qty: 15 RF: 0 valacyclovir [Valtrex] 1 gram tablet 1,000 mg PO Q12H PRN (Reason: Rash) 7 Days Qty: 14 RF: 2 Basaglar KwikPen U-100 Insulin 100 unit/mL (3 mL) insulin pen 60 unit SUBCUT BID Qty: 0 RF: 0 Discontinued diclofenac sodium 1 % Gel 4 g TOPICAL QID PRN (Reason: Pain) RF: 0 No Action (DME) Dexcom G6 Medical Service Representative Misc See Rx Instructions .ROUTE .MEDSUPPLY Qty: 1 RF: 0 (DME) Dexcom G6 Sensor Device See Rx Instructions .ROUTE .MEDSUPPLY Qty: 3 RF: 0 (DME) Dexcom G6 Transmitter Device See Rx Instructions .ROUTE .MEDSUPPLY Qty: 1 RF: 0 (DME) pen needle, diabetic [Lite Touch Insulin Pen [place]] 31 gauge x 3/16 needle See Rx Instructions .ROUTE .MEDSUPPLY Qty: 400 RF: 3 (DME) Accu-Chek Guide test strips Strip See Rx Instructions .ROUTE .MEDSUPPLY Qty: 300 RF: 3 (DME) lancets [Accu-Chek Fastclix Lancet Drum] Misc See Rx Instructions .ROUTE .MEDSUPPLY Qty: 360 RF: 3 Discharge Orders: Discharge Order (Routine); Ordered 10/21/20 Ordered By: Curtis Echols Referrals: Teddy Flores MD [Physician] - 11/04/20 10:30 am Mervat Nguyen [Primary Care Provider] - 4-7 days Discharge Diet: Diabetic Discharge Activity: Increase activity as tolerated, As per PT/OT instructions and Oxygen as instructed Activity Restrictions/Additional Instructions: Nasal cannula oxygen 3 L Nystatin cream for candidiasis under right breast Continue glucose monitoring before meals at bedtime, 30 units 3 times daily, sliding scale PCHS. Glargine 60 units twice daily. Follow-up with endocrinology. Discharge Attestations Time Spent in Discharge Care*: greater than 30 min Status at Discharge: Cognitive status at discharge: cognitively intact , Behavioral status at discharge: cooperative , Quality Metrics Clinical Quality Measures During this hospital stay, did patient experience: None Coding Level of Care Code Acute Chg FW DC note Diagnoses Acute hyperglycemia R73.9 Hyponatremia E87.1 UTI (urinary tract infection) N39.0 Type 2 DM with CKD stage 4 and hypertension E11.22; I12.9; N18.4 Uncontrolled type 2 diabetes with neuropathy E11.40; E11.65 Hypothyroidism E03.9 Hypothyroidism type: acquired Atrial fibrillation I48.11 Atrial fibrillation type: longstanding persistent Morbid obesity with BMI of 60.0-69.9, adult E66.01; Z68.44 DELMIS (obstructive sleep apnea) G47.33 Congestive heart failure I50.9 Hypertension I10
[2020-10-21 10:35] LABS: Glucose Point of Care 322 mg/dL (70-110)
--- NOTE | 2020-10-21 14:57 | PC.NURSE ---
Efren RN called from [facility] and said they are ready for patient. Nail Making Machine Setter notified SS and Parking Inspector
== END 2020-10-21 16:45 | disposition skilled nursing facility (03) | DRG 699 ==
LOC: ER 14:48 → ICU 15:49 → MEDSURG 10-18 15:44
PROVIDERS: Hospitalist; Admitting Provider Internal Medicine; Emergency Provider Emergency Medicine; PCP Internal Medicine; Visit Provider Internal Medicine
DX: E11.22 Type 2 diabetes mellitus with diabetic chronic kidney disease (principal); I13.0 Hypertensive heart and chronic kidney disease with heart failure and stage 1 through stage 4 chronic kidney disease, or unspecified chronic kidney disease; I50.32 Chronic diastolic (congestive) heart failure; I48.11 Longstanding persistent atrial fibrillation; Z68.44 Body mass index [BMI] 60.0-69.9, adult; E87.1 Hypo-osmolality and hyponatremia; N39.0 Urinary tract infection, site not specified; Z16.20 Resistance to unspecified antibiotic; E11.40 Type 2 diabetes mellitus with diabetic neuropathy, unspecified; N18.4 Chronic kidney disease, stage 4 (severe); G47.33 Obstructive sleep apnea (adult) (pediatric); E66.01 Morbid (severe) obesity due to excess calories; J44.9 Chronic obstructive pulmonary disease, unspecified; Z99.81 Dependence on supplemental oxygen; F41.1 Generalized anxiety disorder; F42.3 Hoarding disorder; E03.9 Hypothyroidism, unspecified; F32.9 Major depressive disorder, single episode, unspecified; Z87.891 Personal history of nicotine dependence; N17.9 Acute kidney failure, unspecified; B96.20 Unspecified Escherichia coli [E. coli] as the cause of diseases classified elsewhere; Z79.891 Long term (current) use of opiate analgesic; Z79.01 Long term (current) use of anticoagulants
CPT/HCPCS: 36415; 36416; 36600; 80048; 80053; 81001; 82803; 82962; 83690; 83735; 84145; 85025; 87077; 87086; 87186; 93005; 96365; 96366; 96367; 96372; 96375; 97110; 97162; 97166; 97530; 99214; 99285; J0696; J1650; J1815 ×2; J1940; J2405; J3480; J7030; J7050

== ENCOUNTER 2020-11-20 10:15 | Outpatient (CLI) | payer MEDICARE, MEDICAID, SELFPAY ==
[2020-11-20 11:42] LABS: Alanine Aminotransferase 24 U/L (0-33); Albumin Level 3.9 g/dL (3.5-5.2); Alkaline Phosphatase 145 IU/L (35-105); Anion Gap 13.2 (5-19); Aspartate Amino Transferase 16 U/L (0-32); Blood Urea Nitrogen 15 mg/dL (6-20); C Reactive Protein 37.1 mg/L (0.0-4.9); Calcium 8.8 mg/dL (8.5-10.5); Carbon Dioxide 24 mmol/L (22-29); Chloride 102 mmol/L (98-107); Globulin 3.2 g/dL (1.3-4.6); Glomerular Filtration Rate 42.5 mL/min (90-130); Glucose 216 mg/dL (65-115); Osmolality Calculated 287 mOsm/kg (285-295); Potassium 4.2 mmol/L (3.5-5.1); Sodium 135 mmol/L (136-145); Total Bilirubin 0.9 mg/dL (0.15-1.2); Total Protein 7.1 g/dL (6.6-8.7)
[2020-11-20 12:03] LABS: Erythrocyte Sedimentation Rate 69 mm/hr (0-15)
[2020-11-21 12:42] LABS: Anti-Double Strand DNA AB <1 IU/mL; Centromere B Antibody <1.0 NEG AI (<1.0 NEG); JO-1 Antibody <1.0 NEG AI (<1.0 NEG); SCL 70 <1.0 NEG AI (<1.0 NEG); SS A Ro Sjogrens Antibody <1.0 NEG AI (<1.0 NEG); SS-B/LA IGG <1.0 NEG AI (<1.0 NEG); Sm/RNP Antibody <1.0 NEG AI (<1.0 NEG); Smith Antibody <1.0 NEG AI (<1.0 NEG)
[2020-11-21 13:12] LABS: Cyclic Citrullinated Peptide <16 UNITS
== END 2020-11-20 10:16 | disposition home or self-care (01) ==
LOC: LAB 10:28
PROVIDERS: PCP Internal Medicine; Visit Provider Internal Medicine Pulmonary Disease
DX: J98.4 Other disorders of lung (principal); M25.541 Pain in joints of right hand; M25.542 Pain in joints of left hand
CPT/HCPCS: 36415; 80053; 85651; 86140; 86225; 86235; 86431

== ENCOUNTER → 2020-11-25 07:35 | Outpatient (BNVA) | payer MEDICARE, MEDICAID, SELFPAY | PROVIDERS: PCP Internal Medicine; Visit Provider Nurse Practitioner Psychiatric/Mental Health | DX: F33.2 Major depressive disorder, recurrent severe without psychotic features (principal); F41.1 Generalized anxiety disorder; F42.3 Hoarding disorder | CPT/HCPCS: 99214 ==

== ENCOUNTER 2020-11-26 20:00 | Outpatient (CLI) | payer MEDICARE, MEDICAID, SELFPAY | END 2020-11-26 20:01 | disposition home or self-care (01) | LOC: SLEEP 11-27 10:52 | PROVIDERS: PCP Internal Medicine; Visit Provider Internal Medicine Pulmonary Disease | DX: G47.33 Obstructive sleep apnea (adult) (pediatric) (principal) | CPT/HCPCS: 95811 ==

== ENCOUNTER → 2020-11-29 15:36 | Outpatient (BNVA) | payer MEDICARE, MEDICAID, SELFPAY | PROVIDERS: PCP Internal Medicine; Visit Provider Internal Medicine Pulmonary Disease | DX: Z20.822 Contact with and (suspected) exposure to COVID-19 (principal) | CPT/HCPCS: 87635 ==

== ENCOUNTER 2020-12-04 08:06 | Outpatient (CLI) | payer MEDICARE, MEDICAID, SELFPAY ==
--- NOTE | 2020-12-04 09:30 | CT_ITS ---
WS: [id number] CT CHEST CT-HIGH RESOLUTION, NONCONTRAST. HISTORY: Interstitial lung disease. Technique: High-resolution chest CT is performed in inspiration, expiration, supine and prone positio jennifer. All CT scans at [facility] use at least one of these dose optimization techniques: automa nano exposure control; mA and/or kV adjustment per patient size (includes targeted exams where dose is matched to clinical indication); or iterative reconstruction. DLP: 418.34 mGy.cm COMPARISON: 08/07/[address] Findings: 9 mm subsolid nodule in the RIGHT upper lobe. There is mild groundglass attenuation through out both lungs. No bronchiectasis or honeycombing. On the expiratory imaging there is a mosaic attenu ation noted bilaterally and also involving all lobes. No persistent areas of atelectasis. CT/CT chest wo con [id number] Impression: 1. Quality of this examination is limited by body habitus. 2. No interstitial fibrosis or honeycombing. No bronchiectasis. 3. Bilateral areas of mosaic attenuation can typically be seen with a pneumoni tis, hypersensitivity pneumonia, pulmonary embolism and asthma. 4. 9 mm subsolid nodule in the RIGHT upper lobe unchanged since 08/07/2019. Rec ommend [address] follow-up.
--- NOTE | 2020-12-04 13:41 | PFTS_ITS ---
Date of Study:12/04/20 Date of Dictation: 12/05/2020 MECHANICS: Post bronchodilator forced vital capacity (FVC) is reduced 54%. Postbronchodilator forced expiratory volume in one second (FEV1) is reduced 1.93 L and 61% FEV1/FVC is normal. There is no significant response to bronchodilators. FLOW VOLUME LOOP: normal . LUNG VOLUMES:not measured DIFFUSING CAPACITY FOR CARBON MONOXIDE: Moderately reduced at 46% . INTERPRETATION: The spirometry is consistent with moderate restriction. Lung volumes are measured. There is moderate gas transfer defect. Correlate clinically. MTDD
== END 2020-12-04 08:07 | disposition home or self-care (01) ==
LOC: RT 08:09
PROVIDERS: PCP Internal Medicine; Visit Provider Internal Medicine Pulmonary Disease
DX: J98.4 Other disorders of lung (principal); R91.1 Solitary pulmonary nodule
CPT/HCPCS: 71250; 94060; 94729; J7611

== ENCOUNTER 2020-12-20 07:45 | Outpatient (CLI) | payer MEDICARE, MEDICAID, SELFPAY ==
--- NOTE | 2020-12-20 08:00 | USCV_ITS ---
Ana Lilia Miller Age: 55 Gender: F : 1965 Exam Date: 12/20/2020 08:10 Ordering Phys: Slim Rao MD Technologist: Stephanie Saini Exam Location: [facility] [place] Indication: LV FUNCTION, ASSESS RVSP BP: 110 / 80 HR: 116 Rhythm: Sinus Technical Quality: Poor because of body habitus MEASUREMENTS (Male / Female) Normal Values 2D ECHO LV Diastolic Diameter PLAX 2.5 cm 4.2 - 5.9 / 3.9 - 5.3 cm LV Systolic Diameter PLAX 1.9 cm IVS Diastolic Thickness 2.0 cm 0.6 - 1.0 / 0.6 - 0.9 cm IVS Systolic Thickness 2.0 cm LVPW Diastolic Thickness 2.7 cm 0.6 - 1.0 / 0.6 - 0.9 cm LVPW Systolic Thickness 4.6 cm LVOT Diameter 2.1 cm LV Ejection Fraction 2D Teich 53.4 % LV Ejection Fraction MOD 2C 89.9 % LV Ejection Fraction 2C AL 92.2 % LA Diameter 3.9 cm LA Width 3.4 cm LA Height 4.9 cm RA Width 3.5 cm RA Height 4.8 cm DOPPLER AV Peak Velocity 156.0 cm/s LVOT Peak Velocity 117.0 cm/s AV Area Cont Eq vti 3.7 cm squared AV Area Cont Eq pk 2.5 cm squared MV Peak Velocity 117.0 cm/s MV Area PHT 4.8 cm squared Mitral E to A Ratio 7.8 MV E' Velocity 62.5 cm/s Mitral E to MV E' Ratio 8.8 Mitral E to LV E' Lateral Ratio 8.8 Mitral E to LV E' Septal Ratio 8.7 TR Peak Velocity 70.0 cm/s TR Peak Gradient 2.0 mmHg Right Atrial Pressure 8.0 mmHg Pulmonary Artery Systolic Pressu 10.0 mmHg PV Peak Velocity 119.7 cm/s RV Acceleration Time 0.1 s RV Ejection Time 0.3 s RV AcT/ET 0.5 FINDINGS Left Ventricle Probably normal left ventricular cavity size and systolic function. Left ventricular ejection fraction is estimated at 55 %. Although no disgnostic regional wall motion abnormality could be identified, this possibility cannot be completely excluded. Right Ventricle Normal right ventricular size and systolic function. RVSP could not be calculated due to incomplete tricuspid regurgitation velocity profile. Right Atrium Normal right atrial size. Left Atrium Mildly increased left atrial size. Mitral Valve Structurally normal mitral valve. No mitral valve stenosis. Trace mitral valve regurgitation. Aortic Valve Aortic valve not well visualized. No aortic valve stenosis. Tricuspid Valve Tricuspid valve not well visualized. Trace tricuspid valve regurgitation. Pulmonic Valve Pulmonic valve not well visualized. No pulmonary valve stenosis. Pericardium Trivial pericardial effusion. Aorta Aorta not well visualized. CONCLUSIONS 1. This study is technically difficult with poor windows due to body habitus. 2. Probably normal left ventricular cavity size and systolic function. Left ventricular ejection fraction is estimated at 55 %. Although no disgnostic regional wall motion abnormality could be identified, this possibility cannot be completely excluded. 3. Normal right ventricular size and systolic function. 4. No significant valvular abnormality. 5. Trivial pericardial effusion. 6. Direct comparison to previous study is not possible due to poor images. Renee Gutierrez MD (Electronically Signed) Final Date: 20 December 2020 20:21 S
== END 2020-12-20 07:46 | disposition home or self-care (01) ==
LOC: US 07:48
PROVIDERS: PCP Internal Medicine; Visit Provider Internal Medicine Pulmonary Disease
DX: E66.2 Morbid (severe) obesity with alveolar hypoventilation (principal); Z68.43 Body mass index [BMI] 50.0-59.9, adult; I31.3 Pericardial effusion (noninflammatory)
CPT/HCPCS: 93306

== ENCOUNTER → 2020-12-30 07:54 | Outpatient (BNVA) | payer MEDICARE, MEDICAID, SELFPAY | PROVIDERS: PCP Internal Medicine; Visit Provider Nurse Practitioner Psychiatric/Mental Health | DX: F33.2 Major depressive disorder, recurrent severe without psychotic features (principal); F41.1 Generalized anxiety disorder; F42.3 Hoarding disorder | CPT/HCPCS: 99214 ==

== ENCOUNTER → 2021-02-24 07:46 | Outpatient (BNVA) | payer MEDICARE, MEDICAID, SELFPAY | PROVIDERS: PCP Internal Medicine; Visit Provider Nurse Practitioner Psychiatric/Mental Health | DX: F33.2 Major depressive disorder, recurrent severe without psychotic features (principal); F41.1 Generalized anxiety disorder; F42.3 Hoarding disorder; Z03.89 Encounter for observation for other suspected diseases and conditions ruled out; F43.12 Post-traumatic stress disorder, chronic; E11.40 Type 2 diabetes mellitus with diabetic neuropathy, unspecified; E11.22 Type 2 diabetes mellitus with diabetic chronic kidney disease; E11.65 Type 2 diabetes mellitus with hyperglycemia; E66.01 Morbid (severe) obesity due to excess calories; I12.9 Hypertensive chronic kidney disease with stage 1 through stage 4 chronic kidney disease, or unspecified chronic kidney disease; N18.4 Chronic kidney disease, stage 4 (severe) | CPT/HCPCS: 99214 ==

== ENCOUNTER → 2021-03-27 10:35 | Outpatient (BNVA) | payer MEDICARE, MEDICAID, SELFPAY | PROVIDERS: PCP Internal Medicine; Visit Provider Internal Medicine | DX: M25.50 Pain in unspecified joint (principal); I48.11 Longstanding persistent atrial fibrillation; R70.0 Elevated erythrocyte sedimentation rate; N18.9 Chronic kidney disease, unspecified; J44.9 Chronic obstructive pulmonary disease, unspecified; E66.01 Morbid (severe) obesity due to excess calories; Z68.43 Body mass index [BMI] 50.0-59.9, adult; Z99.81 Dependence on supplemental oxygen; Z87.891 Personal history of nicotine dependence | CPT/HCPCS: 99204 ==

== ENCOUNTER 2021-03-28 11:15 | Outpatient (CLI) | payer MEDICARE, MEDICAID, SELFPAY ==
--- NOTE | 2021-03-28 11:24 | XR_ITS ---
WS: [id number] XR foot LT 2V [id number] REASON FOR EXAM: M25.50 - Pain in unspecified joint FINDINGS: Mild narrowing with mild subchondral sclerosis and small marginal osteophytes in the MIP and DIP join ts of the second through the fifth toes. Similar arthropathy seen in the interphalangeal joint of the left great toe. Mild hallux valgus defor mity of the MP joint of the left great toe with mild narrowing of the joint space and subchondral scl erosis. The joint spaces in the left midfoot and hindfoot are intact and relatively well-preserved. No focal bone abnormality. Moderate enthesophyte at the insertion of the Achilles tendon on the calcaneus. XR/XR foot LT 2V [id number] IMPRESSION: Mild changes of osteoarthritis as above.
--- NOTE | 2021-03-28 11:24 | XR_ITS ---
WS: [id number] XR hand RT 2V [id number] REASON FOR EXAM: M25.541 - Pain in joints of right hand FINDINGS: Minimal arthropathic change in the DIP joints of the second through the fifth fingers of the No other significant arthropathic change in the right hand. The right hand is unchanged compared to 01/29/2018. Right hand with mild joint space narrowing and sma ll marginal osteophytes. XR/XR hand RT 2V [id number] IMPRESSION: Stable mild osteoarthritis DIP joints right hand as above.
--- NOTE | 2021-03-28 11:24 | XR_ITS ---
WS: [id number] XR foot RT 2V [id number] REASON FOR EXAM: M25.50 - Pain in unspecified joint FINDINGS: In the forefoot there is mild joint space narrowing with mild subchondral sclerosis and small margina l osteophytes in the MIP and DIP joints of the second through the fifth toes of the right foot. There is a mild hallux valgus deformity of the MP joint of the right great toe. Mild arthropathic change in the navicular first cuneiform articulation with subchondral sclerosis and cystic change The remainder of the joint spaces in the midfoot and hindfoot are well preserved with no focal bony o r soft tissue abnormality. Small enthesophyte at the insertion of the Achilles tendon on the calcaneu s. Arthropathic changes in the right foot are relatively stable compared to 12/25/2016. XR/XR foot RT 2V [id number] IMPRESSION: Stable mild osteoarthritis the right foot as above.
--- NOTE | 2021-03-28 11:24 | XR_ITS ---
WS: [id number] XR hand LT 2V [id number] REASON FOR EXAM: M25.541 - Pain in joints of right hand FINDINGS: Mild joint space narrowing with small marginal osteophytes in the second through the fifth DIP joints of the left hand. Similar but less prominent arthropathic change in the MIP joints of the same finge rs. No other significant arthropathic change. XR/XR hand LT 2V [id number] IMPRESSION: Mild changes of osteoarthritis of the left hand as above.
[2021-03-28 12:17] LABS: Estmated Average Glucose 186; Hemoglobin A1C 8.1 % (4.0-6.0)
[2021-03-28 12:56] LABS: Anion Gap 17.2 (5-19); Blood Urea Nitrogen 23 mg/dL (6-20); Calcium 9.1 mg/dL (8.5-10.5); Carbon Dioxide 21 mmol/L (22-29); Chloride 98 mmol/L (98-107); Ferritin 54 ng/mL (15-150); Glomerular Filtration Rate 33.5 mL/min (90-130); Glucose 277 mg/dL (65-115); Iron 34 ug/dL (37-145); Magnesium 2.2 mg/dL (1.7-2.3); Osmolality Calculated 288 mOsm/kg (285-295); Phosphorus 2.9 mg/dL (2.5-4.5); Potassium 4.2 mmol/L (3.5-5.1); Sodium 132 mmol/L (136-145)
[2021-03-28 13:10] LABS: Vitamin B12 395 pg/mL (232-1245)
[2021-03-28 13:20] LABS: Hepatitis B Core AB, Total Non-Reactive (Nonreactive); Hepatitis B Surface Antigen Non-Reactive (Nonreactive); Hepatitis C Virus Antibody Non-Reactive (Nonreactive)
[2021-03-31 12:47] LABS: COMPLEMENT COMPONENT C3C 185 mg/dL (83-193); COMPLEMENT COMPONENT C4C 35 mg/dL (15-57)
[2021-03-31 13:56] LABS: THYROID PEROXIDASE ANTIBODIES <1 IU/mL (<9)
[2021-03-31 15:33] LABS: COMPLEMENT, TOTAL (CH50) >60 U/mL (31-60)
[2021-03-31 15:56] LABS: CENTROMERE B ANTIBODY <1.0 NEG AI (<1.0 NEG); JO-1 ANTIBODY <1.0 NEG AI (<1.0 NEG); RNP ANTIBODY <1.0 NEG AI (<1.0 NEG); SCL-70 ANTIBODY <1.0 NEG AI (<1.0 NEG); SJOGREN'S ANTIBODY (SS-A) <1.0 NEG AI (<1.0 NEG); SM ANTIBODY <1.0 NEG AI (<1.0 NEG); SS-B <1.0 NEG AI (<1.0 NEG)
[2021-04-01 14:39] LABS: ANA SCREEN, IFA POSITIVE (NEGATIVE); ANA TITER > OR = 1:1280 titer; Anti-Nuclear AB Pattern #2 Cytoplasmic
[2021-04-02 16:07] LABS: DNA AB (DS) CRITHIDIA,IFA NEGATIVE (NEGATIVE)
== END 2021-03-28 11:16 | disposition home or self-care (01) ==
LOC: RAD 11:22
PROVIDERS: Internal Medicine; PCP Internal Medicine; Visit Provider Internal Medicine
DX: M25.541 Pain in joints of right hand (principal); M25.542 Pain in joints of left hand; M25.50 Pain in unspecified joint; I48.11 Longstanding persistent atrial fibrillation; E11.22 Type 2 diabetes mellitus with diabetic chronic kidney disease; E11.40 Type 2 diabetes mellitus with diabetic neuropathy, unspecified; E11.65 Type 2 diabetes mellitus with hyperglycemia; I12.9 Hypertensive chronic kidney disease with stage 1 through stage 4 chronic kidney disease, or unspecified chronic kidney disease; N18.4 Chronic kidney disease, stage 4 (severe); Z11.59 Encounter for screening for other viral diseases
CPT/HCPCS: 36415; 73120; 73620; 80048; 82607; 82728; 83036; 83540; 83735; 84100; 84550; 86160; 86162; 86235; 86255; 86376; 86704; 86803; 87340

== ENCOUNTER → 2021-04-22 07:03 | Outpatient (BNVA) | payer MEDICARE, MEDICAID, SELFPAY | PROVIDERS: PCP Internal Medicine; Visit Provider Nurse Practitioner Psychiatric/Mental Health | DX: F33.2 Major depressive disorder, recurrent severe without psychotic features (principal); F41.1 Generalized anxiety disorder; F42.3 Hoarding disorder; Z03.89 Encounter for observation for other suspected diseases and conditions ruled out | CPT/HCPCS: 99214 ==

== ENCOUNTER 2021-05-27 11:42 | Emergency (ER) | payer MEDICARE, MEDICAID, SELFPAY ==
--- NOTE | 2021-05-27 11:47 | W.ED.GENADLT ---
HPI - General Adult General: Chief complaint: Dizziness Stated complaint: HYPERGLYCEMIA Time Seen by Provider: 05/27/21 11:44 History of Present Illness: HPI narrative: Ms. Miller is a 55-year-old lady with complex past medical history including hypertension, hyperlipidemia, insulin-dependent diabetes, autoimmune disorder, atrial fibrillation, CKD who presents emergency department due to various concerns including high blood sugar. Symptom onset was gradual approximately 1 and half weeks ago. She endorses initially generalized malaise and noticed increased vaginal bleeding. She additionally has painful which she describes as blisters. She has a history of Bartholin gland cysts and also other blisters which have been evaluated by LEGAL OFFICE ADMINISTRATOR. She denies concern for sexually transmitted infection. Additionally she has had difficulty controlling her blood sugar. Her meter at home is just read high. Her typical insulin regimen is what she describes as 60 units of white twice daily and 30 of blue plus sliding scale 3 times daily. She has had associated increased thirst and urination. She has had mid right anterior chest pain without radiation. She has baseline shortness of breath with chronic hypoxic respiratory failure on 4 L at baseline. Overall the course of symptoms has been worsening. The intensity is moderate to severe. She has a history of hospitalization for severe hyperglycemia. 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 Surgical History History of dental surgery Status post biopsy of skin Family History Other CAD (coronary artery disease) Chronic kidney disease (CKD) Diabetes Hyperlipidemia Hypertension Lung disease Thyroid disease Social History Quit status (tobacco): has quit using tobacco Year quit tobacco: 2006 [id number] Second hand smoke exposure: No Smoking risk assessment/counseling performed?: Yes Alcohol intake: never Lives independently: Yes Household members: spouse Marital status: Marital status details: is wheelchair-bound, Current occupational status: disabled Pets and animals: Yes History of recent travel: No Current gender identity: Female Physical Exam Narrative: EXAM NARRATIVE: GENERAL/CONSTITUTIONAL -somewhat ill-appearing. Uncomfortable due to pelvic pain. Obese. Eyes - PERRL, no conjunctival injection ENMT - Atraumatic external nose and ears. Dry mucous membranes NECK - supple. trachea midline CARDIOVASCULAR -irregularly irregular rhythm. Normal cap refill. RESPIRATORY -clear to auscultation bilaterally. No retractions or accessory muscle use. ABDOMEN/GI -tenderness palpation of the lower abdomen. No evidence of remote peritonitis. - limited exam performed. No external vaginal bleeding appreciated. The patient does have small pustular lesions that are scattered without definitive large abscess identified, these appear centered around hair follicles and may be folliculitis related. There are no vesicular lesions or other significant skin rash. A few shallow ulcerations on internal surface of labia of unclear etiology. MSK - Extremities without obvious deformity or tenderness to palpation SKIN - Warm, Dry NEURO - alert and appropriately oriented. Moves all extremities equally. Course ED course: - Patient was seen and evaluated by me at bedside - Patient placed on cardiac monitors, IV access obtained - Initial evaluation notable for somewhat ill appearance, dry mucous membranes. Distress due to pain. -Fluids and analgesia given - Labs notable for leukocytosis, likely reactive. Metabolic panel notable for spurious hyponatremia with true hyponatremia, normal potassium. Lactate elevated 2.3. Serum ketones negative. Urine ketones negative. ABG 7.49/24/138/18.3. - Imaging notable for no evidence of acute infection on x-ray or CT abdomen pelvis to explain patient's symptoms. - Upon serial reexamination after treatment the patient was mildly improved - Based on patient history, evaluation, labs, and imaging as interpreted the most likely cause of the patient's condition is hyperglycemia with high clinical suspicion for HHS given negative ketones. - Unfortunately we do not currently have ICU beds available. Therefore, patient requires transfer for suspected HHS. This was discussed with the patient. She was agreeable. Transfer arranged and patient accepted to [facility] in [facility]. Vital Signs: Vital signs: Vital Signs Temperature 98.9 F 05/27/21 14:46 Pulse Rate 78 05/27/21 16:40 Respiratory Rate 18 05/27/21 16:40 Blood Pressure 104/62 05/27/21 16:40 Pulse Oximetry 94 05/27/21 16:40 [facility] - General Adult Medical Records: Attestation: I reviewed the patient's medical records. Lab Data: Attestation: I reviewed the patient's lab results. Labs: Lab Results 05/27/21 05/27/21 05/27/21 12:40 12:40 12:40 WBC 10.8 10^3/uL H 10 ^3/uL (4.0-10.0) RBC 5.91 10^6/uL H 10 ^6/uL (4.1-5.3) Hgb 14.8 g/dL g/dL (11.5-15.3) Hct 45.2 % % (37.0-47.0) MCV 76.5 fl L fl (81-99) MCH 25.0 pg L pg (28.0-34.0) MCHC 32.7 g/dL g/dL (30.0-36.0) RDW 17.2 % H % (12.1-15.1) Plt Count 293 10^3/cmm 10^3 /cmm (130-400) MPV 11.7 fL H fL (7.4-10.4) Neut % (Auto) 81.0 % % Lymph % (Auto) 11.4 % % [place] % (Auto) 4.0 % % Eos % (Auto) 1.9 % % Baso % (Auto) 0.8 % % Neut # (Auto) 8.74 10^3/uL H 10 ^3/uL (1.8-7.7) Lymph # (Auto) 1.2 10^3/uL 10^3/ uL (0.8-4.8) [place] # (Auto) 0.4 10^3/uL 10^3/ uL (0.2-0.9) Eos # (Auto) 0.2 10^3/uL 10^3/ uL (0.0-0.8) Baso # (Auto) 0.1 10^3/uL 10^3/ uL (0.0-0.1) Nucleated RBC % (a uto) 0 % % Nucleated RBCs # 0.0 /100WBC /100W BC Specimen Type Sample Site ABG pH ABG pCO2 ABG pO2 ABG HCO3 ABG Base Excess Elian Test Hematocrit O2 Delivery Device O2 Liters/Min FiO2 Baling Machine Operator ID Sodium 117 mmol/L L* mmo l/L (136-145) Potassium 5.1 mmol/L mmol/L (3.5-5.1) Chloride 80 mmol/L L mmol/ L (98-107) Carbon Dioxide 20 mmol/L L mmol/ L (22-29) Anion Gap 22.1 H (5-19) BUN 19 mg/dL mg/dL (6-20) Creatinine 1.6 mg/dL H mg/dL (0.5-0.9) GFR Calculation 33.5 mL/min L mL/ min (90-130) Glucose 932 mg/dL H* mg/d L (65-115) POC Glucose Serum Osmolality Calculated Osmolal ity 293 mOsm/kg mOsm/ kg (285-295) Lactate 2.3 mmol/L H mmol /L (0.5-2.2) Calcium 8.7 mg/dL mg/dL (8.5-10.5) Phosphorus 3.2 mg/dL mg/dL (2.5-4.5) Magnesium 2.2 mg/dL mg/dL (1.7-2.3) Total Bilirubin 0.9 mg/dL mg/dL (0.15-1.2) AST 6 U/L U/L (0-32) ALT 7 U/L U/L (0-33) Alkaline Phosphata se 144 IU/L H IU/L (35-105) Troponin T Baselin e Troponin T 120 Min [place] Delta Troponin T NT-Pro-B Natriuret Pep 521 pg/mL H pg/mL (0-125) Total Protein 6.6 g/dL g/dL (6.6-8.7) Albumin 3.9 g/dL g/dL (3.5-5.2) Globulin 2.7 g/dL g/dL (1.3-4.6) TSH 3.98 uIU/mL uIU/m L (0.27-4.20) Urine Color Urine Appearance Urine pH Ur Specific Gravit y Urine Protein Urine Glucose (UA) Urine Ketones Urine Blood Urine Nitrate Urine Bilirubin Urine Urobilinogen Ur Leukocyte [place] ase Urine RBC Urine WBC Ur Squamous Epith Cells Amorphous Sediment Urine Bacteria Serum Ketones SARS-CoV-2 Ag (Rap id) 05/27/21 05/27/21 05/27/21 12:40 12:40 12:40 WBC RBC Hgb Hct MCV MCH MCHC RDW Plt Count MPV Neut % (Auto) Lymph % (Auto) [place] % (Auto) Eos % (Auto) Baso % (Auto) Neut # (Auto) Lymph # (Auto) [place] # (Auto) Eos # (Auto) Baso # (Auto) Nucleated RBC % (a uto) Nucleated RBCs # Specimen Type Sample Site ABG pH ABG pCO2 ABG pO2 ABG HCO3 ABG Base Excess Elian Test Hematocrit O2 Delivery Device O2 Liters/Min FiO2 Baling Machine Operator ID Sodium Potassium Chloride Carbon Dioxide Anion Gap BUN Creatinine GFR Calculation Glucose POC Glucose Serum Osmolality 306 mOsm/kg H mOs m/kg (278-305) Calculated Osmolal ity Lactate Calcium Phosphorus Magnesium Total Bilirubin AST ALT Alkaline Phosphata se Troponin T Baselin e 33 ng/L H ng/L (0-10) Troponin T 120 Min [place] Delta Troponin T NT-Pro-B Natriuret Pep Total Protein Albumin Globulin TSH Urine Color Urine Appearance Urine pH Ur Specific Gravit y Urine Protein Urine Glucose (UA) Urine Ketones Urine Blood Urine Nitrate Urine Bilirubin Urine Urobilinogen Ur Leukocyte [place] ase Urine RBC Urine WBC Ur Squamous Epith Cells Amorphous Sediment Urine Bacteria Serum Ketones Negative (Negative) SARS-CoV-2 Ag (Rap id) 05/27/21 05/27/21 05/27/21 12:40 12:51 12:55 WBC RBC Hgb Hct MCV MCH MCHC RDW Plt Count MPV Neut % (Auto) Lymph % (Auto) [place] % (Auto) Eos % (Auto) Baso % (Auto) Neut # (Auto) Lymph # (Auto) [place] # (Auto) Eos # (Auto) Baso # (Auto) Nucleated RBC % (a uto) Nucleated RBCs # Specimen Type Arterial Sample Site Radial, right ABG pH 7.49 H (7.35-7.45) ABG pCO2 24.0 mmHg L mmHg (35-45) ABG pO2 138.0 mmHg H mmHg (80.0-100.0) ABG HCO3 18.3 mmol/L L mmo l/L (22-26) ABG Base Excess -3.0 mmol/L L mmo l/L (-2.0-2.0) Elian Test Pos Hematocrit 47.0 % % (37-47) O2 Delivery Device Nc O2 Liters/Min 3.0 % % FiO2 32.0 % % Baling Machine Operator ID Rieri Sodium Potassium Chloride Carbon Dioxide Anion Gap BUN Creatinine GFR Calculation Glucose POC Glucose Serum Osmolality Calculated Osmolal ity Lactate Calcium Phosphorus Magnesium Total Bilirubin AST ALT Alkaline Phosphata se Troponin T Baselin e Troponin T 120 Min [place] Delta Troponin T NT-Pro-B Natriuret Pep Total Protein Albumin Globulin TSH Urine Color Dark yellow (Yellow) Urine Appearance Hazy A (CLEAR) Urine pH 5 (5-7) Ur Specific Gravit y 1.000 L (1.005-1.030) Urine Protein Trace (Negative) Urine Glucose (UA) 4+ H (Normal) Urine Ketones Negative (Negative) Urine Blood 3+ H (Negative) Urine Nitrate Negative (Negative) Urine Bilirubin Neg (Negative) Urine Urobilinogen Norm mg/dL mg/dL (Negative) Ur Leukocyte [place] a[place] Trace H (Negative) Urine RBC >100 /hpf H /hpf (0-2) Urine WBC 0-4 /hpf H /hpf (0-5) Ur Squamous Epith Cells 5-10 /hpf H /hpf (0-5) Amorphous Sediment Not Reportable Urine Bacteria Trace /hpf /hpf (NONE) Serum Ketones SARS-CoV-2 Ag (Rap id) Negative (Negative) 05/27/21 05/27/21 14:39 14:40 WBC RBC Hgb Hct MCV MCH MCHC RDW Plt Count MPV Neut % (Auto) Lymph % (Auto) [place] % (Auto) Eos % (Auto) Baso % (Auto) Neut # (Auto) Lymph # (Auto) [place] # (Auto) Eos # (Auto) Baso # (Auto) Nucleated RBC % (a uto) Nucleated RBCs # Specimen Type Sample Site ABG pH ABG pCO2 ABG pO2 ABG HCO3 ABG Base Excess Elian Test Hematocrit O2 Delivery Device O2 Liters/Min FiO2 Baling Machine Operator ID Sodium Potassium Chloride Carbon Dioxide Anion Gap BUN Creatinine GFR Calculation Glucose POC Glucose > 600 mg/dL H* mg /dL (70-110) Serum Osmolality Calculated Osmolal ity Lactate Calcium Phosphorus Magnesium Total Bilirubin AST ALT Alkaline Phosphata se Troponin T Baselin e Troponin T 120 Min [place] 33.34 ng/L H ng/L (0-10) Delta Troponin T 0.34 ABS# ABS# (0-10) NT-Pro-B Natriuret Pep Total Protein Albumin Globulin TSH Urine Color Urine Appearance Urine pH Ur Specific Gravit y Urine Protein Urine Glucose (UA) Urine Ketones Urine Blood Urine Nitrate Urine Bilirubin Urine Urobilinogen Ur Leukocyte [place] ase Urine RBC Urine WBC Ur Squamous Epith Cells Amorphous Sediment Urine Bacteria Serum Ketones SARS-CoV-2 Ag (Rap id) EKG Data^: EKG 1: Attestation: I personally reviewed and interpreted this EKG as follows: EKG interpretation date: 05/27/21 EKG interpretation time: 12:58 Interpretation: Twelve-lead EKG shows a an irregular rhythm at a rate of 115. AR interval not present, QRS duration 84, QTc 452. Normal axis. Interpretation: Atrial fibrillation. Computer generated interpretation: Chest X-Ray 05/27/21 12:02 IMPRESSION: Unremarkable chest radiograph. Abdomen/Pelvis CT 05/27/21 12:19 IMPRESSION: 1. Hepatic steatosis. 2. Moderate atrophy of the left kidney. Left renal cyst. 3. Minimal diverticulosis of the sigmoid colon. No acute diverticulitis. 4. Bilateral ovarian cysts are noted. The largest cyst is in the left ovary and measures 2.6 cm at greatest diameter. The remaining cysts were smaller. 5. No sign of abdominal or pelvic wall mass or infection. Critical Care Time Critical Care Time: Critical Care Time: Yes Total Critical Care Time: 45 Attestation: This case had a high probability of a clinically significant, sudden, or life threatening deterioration of this patient's condition which required my full and direct attention, intervention and personal management. Discharge Plan Discharge Prescriptions: No Action prednisone 5 mg tablet See Rx Instructions PO DAILY Qty: 60 RF: 0 gabapentin 300 mg capsule 300 mg PO TID@0500,1300,2100 RF: 0 pantoprazole 40 mg tablet,delayed release (DR/EC) 40 mg PO DAILY@0500 RF: 0 aripiprazole [Abilify] 5 mg tablet 5 mg PO QAM Qty: 30 RF: 6 (DME) pen needle, diabetic [Lite Touch Insulin Pen Hob[place]] 31 gauge x 3/16 needle See Rx Instructions .ROUTE .MEDSUPPLY Qty: 400 RF: 3 (DME) Accu-Chek Guide test strips Strip See Rx Instructions .ROUTE .MEDSUPPLY Qty: 300 RF: 3 (DME) lancets [Accu-Chek Fastclix Lancet Drum] Misc See Rx Instructions .ROUTE .MEDSUPPLY Qty: 360 RF: 3 Basaglar KwikPen U-100 Insulin 100 unit/mL (3 mL) insulin pen 60 unit SUBCUT BID 90 Days Qty: 108 RF: 3 Novolog U-100 Insulin aspart 100 unit/mL solution 30 unit SUBCUT TIDAC Qty: 130 RF: 0 ondansetron HCl 4 mg tablet 4 mg PO Q6H PRN (Reason: Nausea And Vomiting) RF: 0 levothyroxine 25 mcg tablet 25 mcg PO DAILY@0500 RF: 0 potassium chloride 10 mEq Tablet Extended Release 10 meq PO BID@0500,1700 RF: 0 furosemide 80 mg Tablet 80 mg PO BID@0500,1700 RF: 0 Zoloft 50 mg tablet 150 mg PO DAILY RF: 0 sumatriptan succinate [Imitrex] 25 mg tablet 25 mg PO PRN PRN (Reason: Migraine Headache) RF: 0 metoprolol tartrate 25 mg tablet 25 mg PO Q12H RF: 0 Eliquis 5 mg tablet 5 mg PO Q12H RF: 0 hydrocodone-acetaminophen 10-325 mg tablet 1 tab PO Q4H MDD 6 tabs PRN (Reason: Pain) Qty: 12 RF: 0 nystatin 100,000 unit/gram cream 1 applic topical BID Qty: 15 RF: 0 Referrals: Mervat Nguyen [Primary Care Provider] - Coding Level of Care Code ED Hazmat Tanker Driver for Tanner Chavez
--- NOTE | 2021-05-27 12:02 | XR_ITS ---
WS: [email or web address] Exam: XR chest 1V portable [id number] Date/Time of Exam: 05/27/2021 12:02 PM Reason For Exam: chest pain Comparison 08/01/2020. Findings: The lungs are clear and fully expanded. Costophrenic angles are sharp. No infiltrates. Bronchovascula r relief appears normal. Cardiac silhouette is unremarkable. Bony elements are intact. XR/XR chest 1V portable [id number] IMPRESSION: Unremarkable chest radiograph.
--- NOTE | 2021-05-27 12:03 | ECG_ITS ---
[facility] Test Date: 2021-05-27 Pat Name: Ana Lilia Miller Department: Room: Gender: Female Side Splitter: : 1965 Requested By: Jovanny Church Order Number: [id number] Glen MD: Stacy Barboza M.D. Measurements Intervals [place] Rate: 115 P: DC: QRS: -19 QRSD: 84 T: 72 QT: 326 QTc: 452 Interpretive Statements ATRIAL FIBRILLATION WITH RAPID VENTRICULAR RESPONSE LOW QRS VOLTAGE [QRS DEFLECTION < 0.5/1.0 mV IN LIMB/CHEST LEADS] POSSIBLE ANTERIOR MYOCARDIAL INFARCTION , PROBABLY OLD [30 ms Q WAVE IN V3/V4, OR R < 0.2 mV IN V4] POSSIBLE INFERIOR MYOCARDIAL INFARCTION , PROBABLY OLD [30 ms Q WAVE IN II/aVF] Compared to ECG 10/15/2020 17:12:20 Low QRS voltage now present Myocardial infarct finding now present Atrial abnormality no longer present ST (T wave) deviation no longer present Electronically Signed On 05-27-2021 21:55:42 INFORMATION SYSTEMS TECHNICIAN by Stacy Barboza M.D. [id number]
--- NOTE | 2021-05-27 12:19 | CT_ITS ---
WS: [email or web address] Exam: CT abdomen pelvis w con* [id number] Date/Time of Exam: 05/27/2021 1:18 PM Reason For Exam: pelvic pain and skin lesions, ?deep infection DLP: 1993.[address] scans at [facility] use at least one of these dose optimization techniques: automated e xposure control; mA and/or kV adjustment per patient size (includes targeted exams where dose is matc hed to clinical indication); or iterative reconstruction. Lower lung zones are clear. Hepatic steatosis noted. No calcified stones in the gallbladder. The stom ach, spleen and pancreas appear normal. Moderate atrophy of the left kidney. 2.7 cm left renal cyst. Compensatory hypertrophy of the right kidney. No renal obstruction noted. The abdominal aorta is norm al in caliber. Normal adrenal glands. The portal vein and IVC are patent. Small bowel loops are ana l in caliber. No lymphadenopathy or free air. Normal appendix visualized. Several isolated diverticul i in the sigmoid colon. No sign of acute diverticulitis. There are cysts in both ovaries. Intact urin marina bladder. The uterus is unremarkable. No pelvic lymphadenopathy or mass. No free fluid in the pelv is. No significant abdominal wall or pelvic wall mass or infection seen. Tiny periumbilical fat fille d hernia. No destructive bone lesions. CT/CT abdomen pelvis w con* [id number] IMPRESSION: 1. Hepatic steatosis. 2. Moderate atrophy of the left kidney. Left renal cyst. 3. Minimal diverticulosis of the sigmoid colon. No acute diverticulitis. 4. Bilateral ovarian cysts are noted. The largest cyst is in the left ovary and measures 2.6 cm at greatest diameter. The remaining cysts were smaller. 5. No sign of abdominal or pelvic wall mass or infection.
[2021-05-27 12:53] LABS: Basophils # 0.1 10^3/uL (0.0-0.1); Basophils % 0.8 %; Eosinophils # 0.2 10^3/uL (0.0-0.8); Eosinophils % 1.9 %; Hematocrit 45.2 % (37.0-47.0); Hemoglobin 14.8 g/dL (11.5-15.3); Lymphocytes # 1.2 10^3/uL (0.8-4.8); Lymphocytes % 11.4 %; Mean Corpuscular HGB Conc 32.7 g/dL (30.0-36.0); Mean Corpuscular Volume 76.5 fl (81-99); Mean Platelet Volume 11.7 fL (7.4-10.4); Monocytes # 0.4 10^3/uL (0.2-0.9); Neutrophils # 8.74 10^3/uL (1.8-7.7); Nucleated Red Blood Cells % 0 %; Platelet Count 293 10^3/cmm (130-400); Red Blood Count 5.91 10^6/uL (4.1-5.3); Red Cell Distribution Width 17.2 % (12.1-15.1); White Blood Count 10.8 10^3/uL (4.0-10.0)
[2021-05-27 13:02] LABS: Blood Gas Allen Test Pos; Blood Gas Sample Site Radial, right; Blood Gas Sample Type Arterial; HCO3 ABG 18.3 mmol/L (22-26)
[2021-05-27 13:03] LABS: Bilirubin Urine Neg (Negative); Blood Urine 3+ (Negative); Glucose Urine UA 4+ (Normal); Ketones Urine Negative (Negative); Leukocyte Esterase Urine Trace (Negative); Nitrate Urine Negative (Negative); Protein Urine Trace (Negative); Urine Appearance Hazy (CLEAR); Urine Color Dark Yellow (Yellow); Urobilinogen Urine Norm (Negative); pH Urine 5 (5-7)
[2021-05-27 13:04] LABS: Add Urine Culture? Yes; Add Urine Microscopic? YES; Bacteria Urine TRACE /hpf; RBC Urine >100 /hpf (0-2); WBC Urine 0-4 /hpf (0-5)
[2021-05-27 13:05] LABS: ABG PH Result 7.49 (7.35-7.45)
[2021-05-27 13:06] LABS: Oxygen Device NC
[2021-05-27 13:14] LABS: Lactate (Lactic Acid level) 2.3 mmol/L (0.5-2.2)
[2021-05-27 13:18] LABS: Troponin(5th) Baseline 33 ng/L (0-10)
[2021-05-27 13:24] LABS: Slide Review Slide Review Perform
[2021-05-27 13:27] LABS: SARS Covid-2 Antigen Negative (Negative)
[2021-05-27 13:28] LABS: Alanine Aminotransferase 7 U/L (0-33); Albumin Level 3.9 g/dL (3.5-5.2); Alkaline Phosphatase 144 IU/L (35-105); Anion Gap 22.1 (5-19); Aspartate Amino Transferase 6 U/L (0-32); Blood Urea Nitrogen 19 mg/dL (6-20); Calcium 8.7 mg/dL (8.5-10.5); Carbon Dioxide 20 mmol/L (22-29); Chloride 80 mmol/L (98-107); Globulin 2.7 g/dL (1.3-4.6); Glomerular Filtration Rate 33.5 mL/min (90-130); Magnesium 2.2 mg/dL (1.7-2.3); NT Pro B Type Natriuretic Pept 521 pg/mL (0-125); Phosphorus 3.2 mg/dL (2.5-4.5); Potassium 5.1 mmol/L (3.5-5.1); Thyroid Stimulating Hormone 3.98 uIU/mL (0.27-4.20); Total Bilirubin 0.9 mg/dL (0.15-1.2); Total Protein 6.6 g/dL (6.6-8.7)
[2021-05-27 13:32] LABS: Sodium 117 mmol/L (136-145)
[2021-05-27] MEDS: ondansetron 2 mg/ML SDV 2 mL 4 MG IVP (13:34)
[2021-05-27] MEDS: morphine 4 mg/mL SDV 1 mL IVP (13:35)
[2021-05-27] MEDS: sodium chloride 0.9% 1,000 ML 999 ML IV (13:35)
[2021-05-27 13:38] LABS: Osmolality Calculated 293 mOsm/kg (285-295)
[2021-05-27] MEDS: iodixanol 320 mg/mL 100mL Btl IV (13:41)
[2021-05-27 13:43] LABS: Glucose 932 mg/dL (65-115)
[2021-05-27 13:54] LABS: Ketone (Acetest) Serum Negative (Negative)
[2021-05-27 14:45] LABS: Glucose Point of Care > 600 mg/dL (70-110)
[2021-05-27 14:46] VITALS: BP 155/106; PULSE 95; RESP 18; TEMP 37.2; O2SAT 98; BMI 54.6
[2021-05-27 15:12] LABS: Troponin 5 2HR 33.34 ng/L (0-10); Troponin 5 2HR Delta 0.34 ABS# (0-10)
[2021-05-27] MEDS: HYDROmorphone 1 mg/mL INJ 1 mL IVP (16:23)
[2021-05-27] MEDS: ondansetron 2 mg/ML SDV 2 mL 8 MG IVP (16:24)
[2021-05-27 16:40] VITALS: BP 104/62; PULSE 78; RESP 18; O2SAT 94
[2021-05-28 16:02] LABS: Osmolality Serum 306 mOsm/kg (278-305)
== END 2021-05-27 16:42 ==
PROVIDERS: Emergency Provider Emergency Medicine; PCP Internal Medicine
DX: R42 Dizziness and giddiness (principal); Z79.01 Long term (current) use of anticoagulants; Z79.4 Long term (current) use of insulin; J44.9 Chronic obstructive pulmonary disease, unspecified; Z99.81 Dependence on supplemental oxygen; E11.22 Type 2 diabetes mellitus with diabetic chronic kidney disease; I13.0 Hypertensive heart and chronic kidney disease with heart failure and stage 1 through stage 4 chronic kidney disease, or unspecified chronic kidney disease; N18.4 Chronic kidney disease, stage 4 (severe); I50.9 Heart failure, unspecified; E11.40 Type 2 diabetes mellitus with diabetic neuropathy, unspecified; Z87.891 Personal history of nicotine dependence; Z20.822 Contact with and (suspected) exposure to COVID-19
CPT/HCPCS: 36415; 36416; 36600; 71045; 74177; 80053; 81001; 82009; 82803; 82962; 83605; 83735; 83880; 83930; 84100; 84443; 84484; 85025; 87040; 87086; 87205; 87426; 93005; 96361; 96374; 96375; 96376; 99285; J1170; J2270; J2405; J7030; Q9967

== ENCOUNTER 2021-09-08 20:00 | Outpatient (CLI) | payer MEDICARE, MEDICAID, SELFPAY | END 2021-09-08 20:01 | disposition home or self-care (01) | LOC: SLEEP 09-09 07:38 | PROVIDERS: PCP Internal Medicine; Visit Provider Internal Medicine Pulmonary Disease | DX: G47.33 Obstructive sleep apnea (adult) (pediatric) (principal) | CPT/HCPCS: 95811 ==

== ENCOUNTER 2021-11-28 19:17 | Emergency (ER) | payer MEDICARE, MEDICAID, SELFPAY ==
[2021-11-28 19:18] VITALS: BMI 54.5
--- NOTE | 2021-11-28 19:20 | XRR_ITS ---
PROCEDURE INFORMATION: Exam: XR Left Knee Exam date and time: 11/28/2021 7:50 PM Age: 56 years old Clinical indication: Pain; Knee; Left; Additional info: Injury TECHNIQUE: Imaging protocol: XR Left knee. Views: 3 views. COMPARISON: No relevant prior studies available. FINDINGS: Bones/joints: Severe tricompartmental osteoarthritis, greatest in the medial compartment. Soft tissues: Normal. Other findings: Ten mm rounded calcific density in the suprapatellar region, perhaps reflecting a loose body. XR/XR knee LT 3V* [id number] IMPRESSION: 1. Negative for fracture or dislocation. 2. Severe tricompartmental osteoarthritis, greatest in the medial compartment. 3. Ten mm rounded calcific density in the suprapatellar region, perhaps reflecting a loose body.
--- NOTE | 2021-11-28 19:22 | ED_ITS ---
HPI - Fall General: Chief Complaint: Fall Stated Complaint: hyperglycemic Time Seen by Provider: 11/28/21 19:17 Source: patient and EMS Mode of arrival: EMS Limitations: no limitations History of Present Illness: 56-year-old female states that she gets around an electric wheelchair states she is transferring herself today out of the chair and fell on the ground. States that she had hit her left knee has knee pain and slight ankle pain from the fall. States she was unable to get up after she had fell. EMS arrived they did check her glucose as she is a diabetic and it read as high. She states that her monitor has not been working in she believes she is likely been underdosing herself on insulin no vomiting no diarrhea no fever Associated symptoms-after fall: Denies abdominal pain, chest pain or headache(s) Review of Systems Const: Denies: fever(s), chills, body aches or change in appetite Eyes: Denies: blurry vision or eye discomfort ENMT: Denies: throat pain or dental pain Card: Denies: chest pain Resp: Denies: dyspnea GI: Denies: abdominal pain, nausea, vomiting or diarrhea : Denies: dysuria Musc: Reports: extremity pain Skin/Breast: Denies: rash Neuro: Denies: headache(s) Psych: Denies: depression Leonid/Lymph: Denies: easy bruising All/Imm: Denies: urticaria PFSH ED PFSH: Medical History Atrial fibrillation Chronic anticoagulation On hold due to vaginal bleeding Congestive heart failure COPD (chronic obstructive pulmonary disease) Generalized anxiety disorder Hoarding disorder with excessive acquisition Hypertension Hypertension Hyponatremia Hypothyroidism Major depressive disorder, recurrent severe without psychotic features Morbid obesity DELMIS (obstructive sleep apnea) 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 Surgical History History of dental surgery Status post biopsy of skin Family History Other CAD (coronary artery disease) Chronic kidney disease (CKD) Diabetes Hyperlipidemia Hypertension Lung disease Thyroid disease Social History Quit status (tobacco): has quit using tobacco Year quit tobacco: 2006 [id number] Second hand smoke exposure: No Smoking risk assessment/counseling performed?: Yes Alcohol intake: never Lives independently: Yes Household members: spouse Marital status: Marital status details: is wheelchair-bound, Current occupational status: disabled Pets and animals: Yes History of recent travel: No Current gender identity: Female Physical Exam Const: COMMON NORMALS: no acute distress, patient oriented x3 and healthy appearing HENMT: COMMON NORMALS: normocephalic and atraumatic HEAD & SCALP: normocephalic and atraumatic Eye: COMMON NORMALS: Equal, round and reactive pupils present and EOMs intact bilaterally PUPIL: Yes Equal, round and reactive pupils present Neck/C-Spine: COMMON NORMALS: full ROM and supple Chest: COMMONS NORMALS: normal inspection of the chest and normal palpation of entire chest wall Resp: COMMON NORMALS: normal respiratory effort, No retractions, No use of accessory muscles and clear to auscultation bilaterally AUSCULTATION: clear to auscultation bilaterally Cardio: COMMON NORMALS: regular rate, regular rhythm and No murmurs present (Cardio) RATE: regular rate RHYTHM: regular rhythm GI: COMMON NORMALS: Normal to inspection, nondistended, normoactive bowel sounds present, Soft to palpation, non-tender and no masses PALPATION: Yes Soft to palpation Extremity: COMMON NORMALS: normal to inspection and full ROM NARRATIVE EXTREMITY EXAM: Tenderness to left knee no obvious deformity full range of motion is noted slight tenderness to left ankle as well Neuro: COMMON NORMALS: patient oriented x3, moves all extremities and no focal motor deficits Psych: COMMON NORMALS: mental status grossly normal, Normal thought process present and cooperative THOUGHT PROCESS: Normal thought process present Skin: COMMON NORMALS: no rashes or lesions noted and no wounds GENERAL SKIN EXAM: no rashes or lesions noted MDM - Fall Medical Decision Making Patient presents here with left knee pain after a fall she has no signs of any fractures well-appearing here. She was found to be hyperglycemic but she has been noncompliant she is not in DKA her blood sugar is improving here after fluids and insulin did offer her admission for observation but she states she feels improved would like to go home she is to take her meds as prescribed at home follow-up with her PCP and return if worsening. Lab Data : 11/28/21 19:40 11/28/21 19:40 Radiology Impressions Knee X-Ray 11/28/21 19:20 IMPRESSION: 1. Negative for fracture or dislocation. 2. Severe tricompartmental osteoarthritis, greatest in the medial compartment. 3. Ten mm rounded calcific density in the suprapatellar region, perhaps reflecting a loose body. Ankle X-Ray 11/28/21 19:24 IMPRESSION: 1. Distal Achilles tendon degenerative calcification. 2. Small calcified calcaneal spur. 3. Mild soft tissue swelling about the ankle, nonspecific. 4. Cortical irregularity at the base of the 5th metatarsal perhaps reflecting a fracture in this region, please correlate clinically and consider dedicated foot radiograph series. Laboratory Results WBC 9.1 10^3/uL (4.0-10.0) 11/28/21 19:40 RBC 5.30 10^6/uL (4.1-5.3) 11/28/21 19:40 Hgb 14.5 g/dL (11.5-15.3) 11/28/21 19:40 Hct 41.6 % (37.0-47.0) 11/28/21 19:40 MCV 78.5 fl (81-99) L 11/28/21 19:40 MCH 27.4 pg (28.0-34.0) L 11/28/21 19:40 MCHC 34.9 g/dL (30.0-36.0) 11/28/21 19:40 RDW 13.9 % (12.1-15.1) 11/28/21 19:40 Plt Count 247 10^3/cmm (130-400) 11/28/21 19:40 MPV 11.7 fL (7.4-10.4) H 11/28/21 19:40 Neut % (Auto) 76.5 % 11/28/21 19:40 Lymph % (Auto) 15.8 % 11/28/21 19:40 Trinity % (Auto) 4.3 % 11/28/21 19:40 Eos % (Auto) 1.9 % 11/28/21 19:40 Baso % (Auto) 0.6 % 11/28/21 19:40 Neut # (Auto) 6.94 10^3/uL (1.8-7.7) 11/28/21 19:40 Lymph # (Auto) 1.4 10^3/uL (0.8-4.8) 11/28/21 19:40 Trinity # (Auto) 0.4 10^3/uL (0.2-0.9) 11/28/21 19:40 Eos # (Auto) 0.2 10^3/uL (0.0-0.8) 11/28/21 19:40 Baso # (Auto) 0.1 10^3/uL (0.0-0.1) 11/28/21 19:40 Nucleated RBC % (auto) 0 % 11/28/21 19:40 Nucleated RBCs # 0.0 /100WBC 11/28/21 19:40 PT 12.70 SECONDS (12.1-14.9) 11/28/21 19:40 INR 0.93 (0.8-1.2) 11/28/21 19:40 Specimen Type Arterial 11/28/21 21:25 Sample Site Brachial, left 11/28/21 21:25 ABG pH 7.33 (7.35-7.45) L 11/28/21 21:25 ABG pCO2 47.7 mmHg (35-45) H 11/28/21 21:25 ABG pO2 21.9 mmHg (80.0-100.0) L* 11/28/21 21:25 ABG HCO3 25.0 mmol/L (22-26) 11/28/21 21:25 ABG Base Excess -1.5 mmol/L (-2.0-2.0) 11/28/21 21:25 Elian Test Pos 11/28/21 21:25 Hematocrit 44.7 % (37-47) 11/28/21 21:25 O2 Delivery Device Nc 11/28/21 21:25 O2 Liters/Min 4.0 % 11/28/21 21:25 Restaurant Hospitality Manager ID Hensa 11/28/21 21:25 Sodium 116 mmol/L (136-145) L* 11/28/21 19:40 Potassium 3.7 mmol/L (3.5-5.1) 11/28/21 19:40 Chloride 83 mmol/L (98-107) L 11/28/21 19:40 Carbon Dioxide 16 mmol/L (22-29) L 11/28/21 19:40 Anion Gap 20.7 (5-19) H 11/28/21 19:40 BUN 13 mg/dL (6-20) 11/28/21 19:40 Creatinine 1.1 mg/dL (0.5-0.9) H 11/28/21 19:40 GFR Calculation 51.4 mL/min (90-130) L 11/28/21 19:40 Glucose 872 mg/dL (65-115) H* 11/28/21 19:40 POC Glucose 560 mg/dL (70-110) H* 11/28/21 22:14 Calculated Osmolality 285 mOsm/kg (285-295) 11/28/21 19:40 Calcium 8.7 mg/dL (8.5-10.5) 11/28/21 19:40 Total Bilirubin 0.9 mg/dL (0.15-1.2) 11/28/21 19:40 AST 11 U/L (0-32) 11/28/21 19:40 ALT 14 U/L (0-33) 11/28/21 19:40 Alkaline Phosphatase 154 IU/L (35-105) H 11/28/21 19:40 Total Protein 6.9 g/dL (6.6-8.7) 11/28/21 19:40 Albumin 3.8 g/dL (3.5-5.2) 11/28/21 19:40 Globulin 3.1 g/dL (1.3-4.6) 11/28/21 19:40 Serum Ketones Negative (Negative) 11/28/21 19:52 Discharge Plan Discharge Patient Disposition: Home Clinical Impression: Fall, Hyperglycemia, Strain of left knee Condition: Stable Prescriptions: No Action prednisone 5 mg tablet See Rx Instructions PO DAILY Qty: 60 0RF Rx Instructions: 1-2 tablets daily PO daily; (DME) Accu-Chek Guide test strips Strip See Rx Instructions .ROUTE .MEDSUPPLY Qty: 300 3RF Rx Instructions: blood sugar 3 times a day (DME) blood-glucose meter Kit See Rx Instructions .Route Qty: 1 0RF Rx Instructions: Check blood sugars 3 times a day gabapentin 300 mg capsule 300 mg PO TID@0500,1300,2100 0RF pantoprazole 40 mg tablet,delayed release (DR/EC) 40 mg PO DAILY@0500 0RF aripiprazole [Abilify] 5 mg tablet 5 mg PO QAM Qty: 30 6RF Rx Instructions: Take one tablet every morning (DME) pen needle, diabetic [Lite Touch Insulin Pen Long Bottom] 31 gauge x 3/16 needle See Rx Instructions .ROUTE .MEDSUPPLY Qty: 400 3RF Rx Instructions: uses 4 times a day Basaglar KwikPen U-100 Insulin 100 unit/mL (3 mL) insulin pen 60 unit SUBCUT BID 90 Days Qty: 108 3RF Rx Instructions: 60 units bid Novolog U-100 Insulin aspart 100 unit/mL solution 30 unit SUBCUT TIDAC Qty: 130 0RF Rx Instructions: 30IU+SSI 141-180 - 6IU 301-350 - 14IU 351-400 - 16IU, 351-400 - 16IU >400 - 18 units, MAX DOSE 144 IU DAILY (DME) lancets 21 gauge misc See Rx Instructions .Route Qty: 200 3RF Rx Instructions: Check BS 4 times a day. ondansetron HCl 4 mg tablet 4 mg PO Q6H PRN (Reason: Nausea And Vomiting) 0RF levothyroxine 25 mcg tablet 25 mcg PO DAILY@0500 0RF potassium chloride 10 mEq Tablet Extended Release 10 meq PO BID@0500,1700 0RF furosemide 80 mg Tablet 80 mg PO BID@0500,1700 0RF Zoloft 50 mg tablet 150 mg PO DAILY 0RF Rx Instructions: Take three tablets every morning sumatriptan succinate [Imitrex] 25 mg tablet 25 mg PO PRN PRN (Reason: Migraine Headache) 0RF metoprolol tartrate 25 mg tablet 25 mg PO Q12H 0RF Rx Instructions: take at 0500,1700 Eliquis 5 mg tablet 5 mg PO Q12H 0RF Rx Instructions: take at 0500,1700 hydrocodone-acetaminophen 10-325 mg tablet 1 tab PO Q4H MDD 6 tabs PRN (Reason: Pain) Qty: 12 0RF nystatin 100,000 unit/gram cream 1 applic topical BID Qty: 15 0RF Rx Instructions: 1 applic topical; Discharge Orders: Discharge ED (Routine); Ordered 11/28/21 Ordered By: Dory Ruvalcaba Referrals: Mervat Nguyen [Primary Care Provider] - Discharge Diet: Advance as tolerated Discharge Activity: Resume usual activity Patient Instructions: Fall Prevention (ED), Diabetic Hyperglycemia (ED) Coding Level of Care Code ED Blanket Cutter Hand for Chg Fwd Exam Comprehensive
--- NOTE | 2021-11-28 19:24 | XRR_ITS ---
PROCEDURE INFORMATION: Exam: XR Left Ankle Exam date and time: 11/28/2021 7:50 PM Age: 56 years old Clinical indication: Pain; Ankle; Left; Additional info: Injury TECHNIQUE: Imaging protocol: XR Left ankle. Views: 3 or more views. COMPARISON: No relevant prior studies available. FINDINGS: Bones/joints: Distal Achilles tendon degenerative calcification. Small calcified calcaneal spur. Cortical irregularity at the base of the 5th metatarsal perhaps reflecting a fracture in this region, please correlate clinically and consider dedicated foot radiograph series. Soft tissues: Mild soft tissue swelling about the ankle, nonspecific. XR/XR ankle LT min 3V* [id number] IMPRESSION: 1. Distal Achilles tendon degenerative calcification. 2. Small calcified calcaneal spur. 3. Mild soft tissue swelling about the ankle, nonspecific. 4. Cortical irregularity at the base of the 5th metatarsal perhaps reflecting a fracture in this region, please correlate clinically and consider dedicated foot radiograph series.
[2021-11-28 19:28] LABS: Glucose Point of Care > 600 mg/dL (70-110)
[2021-11-28] MEDS: sodium chloride 0.9% 1,000 ML 999 ML IV ×3 (19:36→21:35)
[2021-11-28 19:46] LABS: Basophils # 0.1 10^3/uL (0.0-0.1); Basophils % 0.6 %; Eosinophils # 0.2 10^3/uL (0.0-0.8); Eosinophils % 1.9 %; Hematocrit 41.6 % (37.0-47.0); Hemoglobin 14.5 g/dL (11.5-15.3); Lymphocytes # 1.4 10^3/uL (0.8-4.8); Lymphocytes % 15.8 %; Mean Corpuscular HGB Conc 34.9 g/dL (30.0-36.0); Mean Corpuscular Hemoglobin 27.4 pg (28.0-34.0); Mean Corpuscular Volume 78.5 fl (81-99); Mean Platelet Volume 11.7 fL (7.4-10.4); Monocytes # 0.4 10^3/uL (0.2-0.9); Monocytes % 4.3 %; Neutrophils # 6.94 10^3/uL (1.8-7.7); Neutrophils % 76.5 %; Nucleated Red Blood Cells % 0 %; Platelet Count 247 10^3/cmm (130-400); Red Cell Distribution Width 13.9 % (12.1-15.1); White Blood Count 9.1 10^3/uL (4.0-10.0)
[2021-11-28 20:00] LABS: INR 0.93 (0.8-1.2)
[2021-11-28 20:04] LABS: Alanine Aminotransferase 14 U/L (0-33); Albumin Level 3.8 g/dL (3.5-5.2); Alkaline Phosphatase 154 IU/L (35-105); Anion Gap 20.7 (5-19); Aspartate Amino Transferase 11 U/L (0-32); Blood Urea Nitrogen 13 mg/dL (6-20); Calcium 8.7 mg/dL (8.5-10.5); Carbon Dioxide 16 mmol/L (22-29); Chloride 83 mmol/L (98-107); Globulin 3.1 g/dL (1.3-4.6); Glomerular Filtration Rate 51.4 mL/min (90-130); Potassium 3.7 mmol/L (3.5-5.1); Total Bilirubin 0.9 mg/dL (0.15-1.2); Total Protein 6.9 g/dL (6.6-8.7)
[2021-11-28 20:12] LABS: Osmolality Calculated 285 mOsm/kg (285-295)
[2021-11-28] MEDS: insulin regular-human 100 units/1 mL 15 UNIT IVP (20:22)
[2021-11-28 20:23] LABS: Sodium 116 mmol/L (136-145)
[2021-11-28 20:24] LABS: Glucose 872 mg/dL (65-115)
[2021-11-28 20:27] LABS: Glucose Point of Care > 600 mg/dL (70-110)
[2021-11-28 21:08] LABS: Glucose Point of Care > 600 mg/dL (70-110)
[2021-11-28] MEDS: insulin regular-human 100 units/1 mL 10 UNIT IVP (21:35)
[2021-11-28 21:37] LABS: ABG PCO2 47.7 mmHg (35-45); ABG PH Result 7.33 (7.35-7.45); Arterial Blood Gas Hematocrit 44.7 % (37-47); Base Excess ABG -1.5 mmol/L (-2.0-2.0); Blood Gas Allen Test Pos; Blood Gas Sample Site Brachial, left; Oxygen Device NC; PO2 ABG 21.9 mmHg (80.0-100.0)
[2021-11-28 21:39] LABS: Blood Gas Sample Type Arterial
[2021-11-28 21:40] LABS: Glucose Point of Care > 600 mg/dL (70-110)
[2021-11-28 22:17] LABS: Glucose Point of Care 560 mg/dL (70-110)
[2021-11-28 22:31] LABS: Ketone (Acetest) Serum Negative (Negative)
[2021-11-28] MEDS: insulin regular-human 100 units/1 mL 5 UNIT IVP (22:31)
[2021-11-28 22:54] LABS: Glucose Point of Care 512 mg/dL (70-110)
[2021-11-28 23:10] LABS: Glucose Point of Care 418 mg/dL (70-110)
[2021-11-29 02:26] LABS: Glucose Point of Care 445 mg/dL (70-110)
[2021-11-29 06:23] VITALS: BP 155/107; PULSE 74; RESP 20; TEMP 36.8; O2SAT 96
--- NOTE | 2021-11-29 07:27 | PC.NURSE ---
WHILE AT DOORWAY PT IS IN NAD. PT IS RESTING QUIETLY IN BED AND HAS GOOD CHEST RISE AND FALL.
--- NOTE | 2021-11-29 08:21 | PC.NURSE ---
PT IS RESTING QIUETLY WITH EYES CLOSED IN BED WITH GOOD CHEST RISE AND FALL.
[2021-11-29 11:09] VITALS: BP 132/96; PULSE 86; RESP 16; O2SAT 96
== END 2021-11-29 11:11 | disposition home or self-care (01) ==
PROVIDERS: Emergency Provider Emergency Medicine; PCP Internal Medicine
DX: S86.812A Strain of other muscle(s) and tendon(s) at lower leg level, left leg, initial encounter (principal); W05.0XXA Fall from non-moving wheelchair, initial encounter; M25.572 Pain in left ankle and joints of left foot; E11.65 Type 2 diabetes mellitus with hyperglycemia; Z79.4 Long term (current) use of insulin; Z91.14 Patient's other noncompliance with medication regimen; E11.22 Type 2 diabetes mellitus with diabetic chronic kidney disease; I13.0 Hypertensive heart and chronic kidney disease with heart failure and stage 1 through stage 4 chronic kidney disease, or unspecified chronic kidney disease; I50.9 Heart failure, unspecified; N18.4 Chronic kidney disease, stage 4 (severe); Z79.01 Long term (current) use of anticoagulants; Z87.891 Personal history of nicotine dependence
CPT/HCPCS: 36416; 36600; 73562; 73610; 80053; 82009; 82803; 82962; 85025; 85610; 96374; 96376; 99284; J1815; J7030

== ENCOUNTER 2022-01-26 19:40 | Inpatient (IN) | payer MEDICARE, MEDICAID, SELFPAY ==
[2022-01-26 19:44] VITALS: BMI 47.9
[2022-01-26 19:51] VITALS: BP 117/83; PULSE 93; RESP 16; TEMP 37.7; O2SAT 98
--- NOTE | 2022-01-26 19:58 | W.ED.GENADLT ---
HPI - General Adult General: Chief complaint: General Medical Stated complaint: general Time Seen by Provider: 01/26/22 19:43 History of Present Illness: Patient is a 56-year-old female history of diabetes, atrial fibrillation on Eliquis, COPD, CHF on Lasix, hypertension, hypothyroidism who presents the emergency room with concerns for diffuse rash and pain and inability to get out of her futon. Per patient, the mattress between her and her still futon fell out and since then, patient has been lying on the metal futon for last 3-day. Patient tells me that she was stubborn and signed out to come to the emergency room in the last 2 days. However because of the significant rash from her lying down, patient finally decided to come to the emergency room. Patient tells me that he has difficulty ambulating due to significant knee and hip pain. Patient denies any fever chills, cough, runny nose sore throat, chest pain, shortness of palpitation or lightheadedness. In route, patient is hemodynamically stable. Patient had a glucose of 442. Onset:3 days ago Duration:3 days Location:home Severity:severe Associated symptoms: Deny chest pain, dyspnea, nausea, palpitations or vomiting Review of Systems Const: Denies: fever(s) or chills Eyes: Denies: change in vision ENMT: Denies: mouth pain Card: Denies: chest pain or palpitations Resp: Denies: dyspnea or non-productive cough GI: Denies: abdominal pain, nausea, vomiting or diarrhea : Denies: dysuria Musc: Reports: extremity pain (+L index finger tip pain) Skin/Breast: Reports: new lesions (+ Rash over the left side of the body) Neuro: Denies: weakness in extremities Psych: Reports: other (Normal mood) Leonid/Lymph: Denies: easy bruising PFS ED PFSH: Medical History (Updated 01/26/22 @ 23:18 by Curtis Echols MD) Acute paronychia of finger of left hand Atrial fibrillation Chronic anticoagulation On hold due to vaginal bleeding Congestive heart failure COPD (chronic obstructive pulmonary disease) Generalized anxiety disorder Hoarding disorder with excessive acquisition Hypertension Hypertension Hyponatremia Hypothyroidism Major depressive disorder, recurrent severe without psychotic features Morbid obesity DELMIS (obstructive sleep apnea) 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 Surgical History History of dental surgery Status post biopsy of skin Family History Other CAD (coronary artery disease) Chronic kidney disease (CKD) Diabetes Hyperlipidemia Hypertension Lung disease Thyroid disease Social History Smoking and tobacco status: former smoker Quit status (tobacco): has quit using tobacco Year quit tobacco: 2006 [id number] Second hand smoke exposure: No Smoking risk assessment/counseling performed?: Yes Alcohol intake: never Lives independently: Yes Household members: spouse Marital status: Marital status details: is wheelchair-bound, Current occupational status: disabled Pets and animals: Yes History of recent travel: No Current gender identity: Female Physical Exam Const: COMMON NORMALS: alert HENMT: COMMON NORMALS: atraumatic HEAD & SCALP: atraumatic MOUTH: moist mucous membranes abnormal Eye: COMMON NORMALS: EOMs intact bilaterally and conjunctivae normal CONJUNCTIVA: Yes conjunctivae normal Neck/C-Spine: COMMON NORMALS: full ROM and supple Resp: COMMON NORMALS: normal respiratory effort and clear to auscultation bilaterally AUSCULTATION: clear to auscultation bilaterally Cardio: RATE: tachycardic GI: COMMON NORMALS: Soft to palpation and non-tender PALPATION: Yes Soft to palpation Extremity: COMMON NORMALS: full ROM NARRATIVE EXTREMITY EXAM: + Left index finger without nailbed, no signs of soft tissue swelling of the left hand +No Kanavel sign of the left index finger Neuro: SENSORIUM/ORIENTATION: Yes alert MOTOR EXAM: No Abnormal motor strength present and Other motor observations present (no focal motor deficits) Psych: COMMON NORMALS: speech normal SPEECH: Yes normal speech MOOD & AFFECT: Yes euthymic mood Skin: NARRATIVE SKIN EXAM: + Diffuse skin erosion and abrasion over the left side of the body and left upper back Course Vital Signs: Vital signs: Vital Signs Temperature 97.6 F 02/02/22 08:00 Pulse Rate 80 02/02/22 08:00 Respiratory Rate 16 02/02/22 08:00 Blood Pressure 131/89 02/02/22 08:00 Pulse Oximetry 92 02/02/22 08:00 MDM - General Adult Medical Decision Making 56-year-old female history of diabetes, atrial fibrillation on Eliquis, hypertension, hypothyroidism who presents the emergency room for evaluation of diffuse rash on the left side of the body extending from front to the back. On physical exam, patient has significant skin erosion/abrasion on the left side. Patient is also noted to be mildly tachycardic to the 100s with low-grade fever 99.7 She has white count 11.7. Mildly hemoconcentrated 15.6. Glucose of 422 with mild anion gap. Serum ketones negative. CT abdomen pelvis chest negative for any signs of cellulitis or acute soft tissue infection. CT is negative for any acute finding. Blood cultures pending. Skin findings are likely skin erosion with abrasions. However will start patient apparently with antibiotics including vancomycin and cefepime. Patient also had complaint of left index finger pain. Patient had a recent subungual infection requiring nailbed removal. There does not appear to be any hand swelling/erythema Kanavel signs. No suspicion for acute soft tissue infection of the L hand. Disposition:Admission Lab Data : 02/02/22 05:26 02/02/22 05:26 Radiology Impressions Hand X-Ray 01/26/22 19:59 IMPRESSION: No acute osseous findings. Other findings as above. Abdomen/Pelvis CTA 01/26/22 21:10 IMPRESSION: 1. Colonic diverticulosis with no acute bowel findings. 2. No aortic aneurysm, dissection or obvious large branch arterial occlusion/stenosis. 3. Other nonacute findings as described above. 4. Please see discussion above regarding soft tissue. Laboratory Results WBC 11.7 10^3/uL (4.0-10.0) H 01/26/22 20:46 RBC 5.49 10^6/uL (4.1-5.3) H 01/26/22 20:46 Hgb 15.6 g/dL (11.5-15.3) H 01/26/22 20:46 Hct 45.7 % (37.0-47.0) 01/26/22 20:46 MCV 83.2 fl (81-99) 01/26/22 20:46 MCH 28.4 pg (28.0-34.0) 01/26/22 20:46 MCHC 34.1 g/dL (30.0-36.0) 01/26/22 20:46 RDW 13.4 % (12.1-15.1) 01/26/22 20:46 Plt Count 307 10^3/cmm (130-400) 01/26/22 20:46 MPV 12.3 fL (7.4-10.4) H 01/26/22 20:46 Neut % (Auto) 83.1 % 01/26/22 20:46 Lymph % (Auto) 10.1 % 01/26/22 20:46 Cassia % (Auto) 4.4 % 01/26/22 20:46 Eos % (Auto) 1.3 % 01/26/22 20:46 Baso % (Auto) 0.3 % 01/26/22 20:46 Neut # (Auto) 9.75 10^3/uL (1.8-7.7) H 01/26/22 20:46 Lymph # (Auto) 1.2 10^3/uL (0.8-4.8) 01/26/22 20:46 Cassia # (Auto) 0.5 10^3/uL (0.2-0.9) 01/26/22 20:46 Eos # (Auto) 0.2 10^3/uL (0.0-0.8) 01/26/22 20:46 Baso # (Auto) 0.0 10^3/uL (0.0-0.1) 01/26/22 20:46 Nucleated RBC % (auto) 0 % 01/26/22 20:46 Nucleated RBCs # 0.0 /100WBC 01/26/22 20:46 ESR 36 mm/hr (0-15) H 01/26/22 20:46 Sodium 122 mmol/L (136-145) L 01/26/22 20:46 Potassium 4.3 mmol/L (3.5-5.1) 01/26/22 20:46 Chloride 85 mmol/L (98-107) L 01/26/22 20:46 Carbon Dioxide 20 mmol/L (22-29) L 01/26/22 20:46 Anion Gap 21.3 (5-19) H 01/26/22 20:46 BUN 13 mg/dL (6-20) 01/26/22 20:46 Creatinine 0.9 mg/dL (0.5-0.9) 01/26/22 20:46 GFR Calculation 64.8 mL/min (90-130) L 01/26/22 20:46 Glucose 422 mg/dL (65-115) H 01/26/22 20:46 Calculated Osmolality 272 mOsm/kg (285-295) L 01/26/22 20:46 Calcium 9.4 mg/dL (8.5-10.5) 01/26/22 20:46 Total Bilirubin 1.3 mg/dL (0.15-1.2) H 01/26/22 20:46 AST 8 U/L (0-32) 01/26/22 20:46 ALT 10 U/L (0-33) 01/26/22 20:46 Alkaline Phosphatase 191 IU/L (35-105) H 01/26/22 20:46 Creatine Kinase 42 U/L (26-192) 01/26/22 20:46 C-Reactive Protein 273.1 mg/L (0.0-4.9) H 01/26/22 20:46 Total Protein 6.8 g/dL (6.6-8.7) 01/26/22 20:46 Albumin 3.0 g/dL (3.5-5.2) L 01/26/22 20:46 Globulin 3.8 g/dL (1.3-4.6) 01/26/22 20:46 Serum Ketones Negative (Negative) 01/26/22 20:46 Imaging Data Other Imaging: Radiologist's impression: [address] [address] [address] Scan Report Signed Patient: Ana Lilia Miller Unit #: [id number] : 1965 Age/Sex: 56 / F ADM Date: 01/26/22 Loc: ER Room/Bed: Attending Dr: Ordering Provider/Ordering MD: Wade Miner MD Date of Service: 01/26/22 Procedure(s): CT angio abdomen pelvis 95007 Accession Number(s): [id number] Report Number: [id number] PROCEDURE INFORMATION: Exam: CTA Abdomen and Pelvis With Contrast Exam date and time: 01/26/2022 9:45 PM Age: 56 years old Clinical indication: Patient HX: Patient has large diffuse abrasion/rash to left side of body. According to EMS patient was laying on the metal frame of a futon for the last three days. Patient is unabmbulatory. ; Additional info: Diffuse rash over the L side of the body TECHNIQUE: Imaging protocol: Computed tomographic angiography of the abdomen and pelvis with contrast. 3D rendering (Not supervised by radiologist): MIP and/or 3D reconstructed images were created by the technologist. Radiation optimization: All CT scans at this facility use at least one of these dose optimization techniques: automated exposure control; mA and/or kV adjustment per patient size (includes targeted exams where dose is matched to clinical indication); or iterative reconstruction. Contrast material: OMNI 350; Contrast volume: 90 ml; Contrast route: INTRAVENOUS (IV);? COMPARISON: CT abdomen pelvis w con* [id number] 05/27/2021 1:27 PM RADIATION DOSE METRICS: Total DLP (mGy-cm): 1142.35 FINDINGS: Lungs: Multiple calcified pulmonary granulomas in bilateral lung bases. Aorta: No aortic aneurysm. No aortic dissection. Celiac trunk and mesenteric arteries: No occlusion or significant stenosis. Renal arteries: No obvious severe renal artery stenosis. Right iliac arteries: No occlusion or significant stenosis. Left iliac arteries: No occlusion or significant stenosis. Liver: Hepatomegaly with probable steatosis similar to previous exam. No cirrhosis or discrete mass. Gallbladder and bile ducts: Unremarkable. No calcified stones. No ductal dilation. Pancreas: Unremarkable. No mass. No ductal dilation. Spleen: Splenomegaly. Calcified splenic granuloma. Adrenal glands: Unremarkable. No mass. Kidneys and ureters: Left upper pole simple renal cyst measuring 2.6 cm. Again seen is mild left renal atrophy with no hydronephrosis or suspicious lesion. Stomach and bowel: Moderate stool burden. No bowel obstruction, pneumatosis or suspicious bowel wall thickening. Colonic diverticulosis. Appendix: No evidence of appendicitis. Intraperitoneal space: Contrast-enhanced CT/CTA images were obtained including the abdomen and pelvis. The chest portion was not provided. Images not provided. No free air or ascites. Lymph nodes: Unremarkable. No enlarged lymph nodes. Urinary bladder: Unremarkable. No mass. Reproductive: The uterus is normal in size and contour and appears somewhat deviated towards the right side. No large adnexal region masses. Bones/joints: No acute fracture. Soft tissues: Unremarkable. Provided history indicates large cutaneous abnormality along the left side of the body. Portion of the left anterolateral abdominal wall and left flank soft tissue is excluded from this exam. Additional imaging may be obtained if clinically indicated. CT/CT angio abdomen pelvis [id number] IMPRESSION: 1. Colonic diverticulosis with no acute bowel findings. 2. No aortic aneurysm, dissection or obvious large branch arterial occlusion/stenosis. 3. Other nonacute findings as described above. 4. Please see discussion above regarding soft tissue. ? Dictated By: Alysa Gold MD Signed By: Alysa Gold MD Signed Date/Time: 01/26/222227 DD/ [address] [address] XRay Report Signed Patient: Ana Lilia Miller Unit #: [id number] : 1965 Age/Sex: 56 / F ADM Date: 01/26/22 Loc: ER Room/Bed: Attending Dr: Ordering Provider/Ordering MD: Wade Miner MD Date of Service: 01/26/22 Procedure(s): XR hand LT min 3V* [id number] Accession Number(s): [id number] Report Number: [id number] PROCEDURE INFORMATION: Exam: XR Left Hand Exam date and time: 01/26/2022 8:03 PM Age: 56 years old Clinical indication: Swelling; Hand; Left; Additional info: L hand swelling TECHNIQUE: Imaging protocol: Radiologic exam of the Left hand. Views: 3 or more views. COMPARISON: No relevant prior studies available. FINDINGS: Bones/joints:? Probable mild osteopenia osteopenia. No acute fracture dislocation or obvious radiographic evidence of acute osteomyelitis. Minimal D IP and 1st MCP joint degenerative disease. Slight negative ulnar variance. ?Benign osseous lucency with sclerotic margin in the distal 3rd metacarpal measuring 6 mm. Soft tissues: Diffuse soft tissue prominence may be related to edema and/or obesity. No soft tissue gas. Other findings: Three portable views submitted. No true lateral view is available. XR/XR hand LT min 3V* [id number] IMPRESSION: No acute osseous findings.? Other findings as above. ? Dictated By: Alysa Gold MD Signed By: Alysa Gold MD Signed Date/Time: 01/26/222050 DD/ 02 Discharge Plan Discharge Patient Disposition: Admitted As Inpatient Admit Provider: Curtis Echols Clinical Impression: Rash, Inability to walk Condition: Stable Coding Level of Care Code ED [employer] Officer for Chg Fwd Exam Comprehensive
[2022-01-26 20:49] LABS: Basophils % 0.3 %; Eosinophils # 0.2 10^3/uL (0.0-0.8); Eosinophils % 1.3 %; Hematocrit 45.7 % (37.0-47.0); Hemoglobin 15.6 g/dL (11.5-15.3); Lymphocytes # 1.2 10^3/uL (0.8-4.8); Lymphocytes % 10.1 %; Mean Corpuscular HGB Conc 34.1 g/dL (30.0-36.0); Mean Corpuscular Hemoglobin 28.4 pg (28.0-34.0); Mean Corpuscular Volume 83.2 fl (81-99); Mean Platelet Volume 12.3 fL (7.4-10.4); Monocytes # 0.5 10^3/uL (0.2-0.9); Monocytes % 4.4 %; Neutrophils # 9.75 10^3/uL (1.8-7.7); Neutrophils % 83.1 %; Nucleated Red Blood Cells % 0 %; Platelet Count 307 10^3/cmm (130-400); Red Blood Count 5.49 10^6/uL (4.1-5.3); Red Cell Distribution Width 13.4 % (12.1-15.1); White Blood Count 11.7 10^3/uL (4.0-10.0)
[2022-01-26] MEDS: sodium chloride 0.9% 1,000 ML 999 ML IV (20:50)
[2022-01-26 20:53] VITALS: RESP 20
[2022-01-26] MEDS: HYDROmorphone 1 mg/mL INJ 1 mL 0.5 MG IVP (20:53)
[2022-01-26 21:05] LABS: Alanine Aminotransferase 10 U/L (0-33); Alkaline Phosphatase 191 IU/L (35-105); Anion Gap 21.3 (5-19); Aspartate Amino Transferase 8 U/L (0-32); Blood Urea Nitrogen 13 mg/dL (6-20); C Reactive Protein 273.1 mg/L (0.0-4.9); Calcium 9.4 mg/dL (8.5-10.5); Carbon Dioxide 20 mmol/L (22-29); Chloride 85 mmol/L (98-107); Globulin 3.8 g/dL (1.3-4.6); Glomerular Filtration Rate 64.8 mL/min (90-130); Glucose 422 mg/dL (65-115); Osmolality Calculated 272 mOsm/kg (285-295); Potassium 4.3 mmol/L (3.5-5.1); Sodium 122 mmol/L (136-145); Total Bilirubin 1.3 mg/dL (0.15-1.2); Total Protein 6.8 g/dL (6.6-8.7)
--- NOTE | 2022-01-26 21:10 | CTR_ITS ---
PROCEDURE INFORMATION: Exam: CTA Abdomen and Pelvis With Contrast Exam date and time: 01/26/2022 9:45 PM Age: 56 years old Clinical indication: Patient HX: Patient has large diffuse abrasion/rash to left side of body. According to EMS patient was laying on the metal frame of a futon for the last three days. Patient is unabmbulatory. ; Additional info: Diffuse rash over the L side of the body TECHNIQUE: Imaging protocol: Computed tomographic angiography of the abdomen and pelvis with contrast. 3D rendering (Not supervised by radiologist): MIP and/or 3D reconstructed images were created by the technologist. Radiation optimization: All CT scans at this facility use at least one of these dose optimization techniques: automated exposure control; mA and/or kV adjustment per patient size (includes targeted exams where dose is matched to clinical indication); or iterative reconstruction. Contrast material: OMNI 350; Contrast volume: 90 ml; Contrast route: INTRAVENOUS (IV); COMPARISON: CT abdomen pelvis w con* [id number] 05/27/2021 1:27 PM RADIATION DOSE METRICS: Total DLP (mGy-cm): 1142.35 FINDINGS: Lungs: Multiple calcified pulmonary granulomas in bilateral lung bases. Aorta: No aortic aneurysm. No aortic dissection. Celiac trunk and mesenteric arteries: No occlusion or significant stenosis. Renal arteries: No obvious severe renal artery stenosis. Right iliac arteries: No occlusion or significant stenosis. Left iliac arteries: No occlusion or significant stenosis. Liver: Hepatomegaly with probable steatosis similar to previous exam. No cirrhosis or discrete mass. Gallbladder and bile ducts: Unremarkable. No calcified stones. No ductal dilation. Pancreas: Unremarkable. No mass. No ductal dilation. Spleen: Splenomegaly. Calcified splenic granuloma. Adrenal glands: Unremarkable. No mass. Kidneys and ureters: Left upper pole simple renal cyst measuring 2.6 cm. Again seen is mild left renal atrophy with no hydronephrosis or suspicious lesion. Stomach and bowel: Moderate stool burden. No bowel obstruction, pneumatosis or suspicious bowel wall thickening. Colonic diverticulosis. Appendix: No evidence of appendicitis. Intraperitoneal space: Contrast-enhanced CT/CTA images were obtained including the abdomen and pelvis. The chest portion was not provided. Images not provided. No free air or ascites. Lymph nodes: Unremarkable. No enlarged lymph nodes. Urinary bladder: Unremarkable. No mass. Reproductive: The uterus is normal in size and contour and appears somewhat deviated towards the right side. No large adnexal region masses. Bones/joints: No acute fracture. Soft tissues: Unremarkable. Provided history indicates large cutaneous abnormality along the left side of the body. Portion of the left anterolateral abdominal wall and left flank soft tissue is excluded from this exam. Additional imaging may be obtained if clinically indicated. CT/CT angio abdomen pelvis [id number] IMPRESSION: 1. Colonic diverticulosis with no acute bowel findings. 2. No aortic aneurysm, dissection or obvious large branch arterial occlusion/stenosis. 3. Other nonacute findings as described above. 4. Please see discussion above regarding soft tissue.
[2022-01-26 21:12] LABS: Erythrocyte Sedimentation Rate 36 mm/hr (0-15)
--- NOTE | 2022-01-26 21:17 | PC.PHAR ---
PT UNABLE TO VERIFY WHEN SHE LAST TOOK MEDICATIONS- PT FILLS WITH [facility] THEY ARE CLOSED- PT STATES HER CAN NOT READ HER BOTTLES- VERIFIED FROM HOME MEDICATION LIST AND EXTERNAL MED LAST FILLED. PT UNABLE TO VERIFY HOW MANY UNITS SHE TAKES ON HER INSULIN.
[2022-01-26 21:21] LABS: Ketone (Acetest) Serum Negative (Negative)
[2022-01-26 21:30] LABS: Creatine Phosphokinase 42 U/L (26-192)
[2022-01-26] MEDS: iohexol 350 mg/mL 100 mL Btl IV (21:44)
[2022-01-26] MEDS: cefepime 1,000 MG in sodium chloride 0.9% (plus) 50 ML 100 MG IV (22:55)
--- NOTE | 2022-01-26 23:02 | P.HP_ITS ---
Providers/Chief Complaint Primary Care Provider: Mervat Nguyen Chief Complaint: general History of Present Illness Pleasant 56-year-old lady, nonambulatory due to polyarticular severe osteoarthritis, for which she says she needs joint replacements, also has difficult time repositioning in bed, and limited help from her who is in a wheelchair himself, states has been needing a hospital bed, although it still has not been approved by insurance despite multiple requests, presents to the hospital after being unable to reposition in her bed after the mattress head slumped into a dip in the bed frame, and her leg got trapped between the mattress and the wall, could not reposition sufficiently over the last 3 days, eventually decided to go for evaluation to ER due to progressive worsening extensive rash on her left buttock, thigh, but also left side torso, under and on her breast, and extending inferiorly down the left leg, as well as into the groin. She has not measured an objective fever. She had headache last night and some nausea. Review of Systems Const: Denies: fever(s), chills, body aches or malaise Eyes: Denies: change in vision, eye discomfort or eye redness ENMT: Denies: throat pain, oral sores or ear or mastoid pain Card: Denies: chest pain, edema, pre-syncope or dyspnea on exertion Resp: Denies: dyspnea, productive cough, change in phlegm color or hemoptysis GI: Denies: abdominal pain, nausea, vomiting, diarrhea, constipation, hematochezia or melena : Denies: flank pain, urinary frequency or hematuria Musc: Denies: back pain, joint swelling or joint redness Skin/Breast: Reports: rash, erythema and skin tenderness Neuro: Reports: headache(s); Denies: numbness in extremities, weakness in extremities, dizziness, confusion or seizure-like activity Endo: Denies: polyuria or polydipsia Leonid/Lymph: Denies: easy bleeding or tender lymph nodes All/Imm: Denies: urticaria or tongue swelling Medications/Allergies Home Medications Medication Instructions Recorded Confirmed Last Taken Type gabapentin 300 mg capsule 300 mg PO TID@0500,1300,2100 10/05/19 01/26/22 05/26/21 History levothyroxine 25 mcg tablet 25 mcg PO DAILY@0500 03/03/20 01/26/2221 History ondansetron HCl 4 mg tablet 4 mg PO Q6H PRN 03/03/20 01/26/22 10/15/20 History apixaban 5 mg tablet (Eliquis) 5 mg PO Q12H 06/18/20 01/26/22 05/26/21 History metoprolol tartrate 25 mg tablet 25 mg PO Q12H 06/18/20 01/26/22 05/26/21 History pantoprazole 40 mg tablet,delayed 40 mg PO DAILY@0500 06/18/20 01/26/22 05/26/21 History release sumatriptan succinate 25 mg tablet 25 mg PO PRN PRN 06/18/20 01/26/22 Unknown History (Imitrex) furosemide 80 mg tablet 80 mg PO BID@0500,1700 07/31/20 01/26/22 05/26/21 History potassium chloride 10 mEq 10 meq PO BID@0500,1700 07/31/20 01/26/22 05/26/21 History tablet,extended release pen needle, diabetic 31 gauge x #400 ea 09/16/20 01/26/22 Unknown Rx 09/24 (Lite Touch Insulin Pen Garrett) nystatin 100,000 unit/gram topical 1 applic TOPICAL BID #15 g 10/21/20 01/26/22 Unknown Rx cream insulin glargine 100 unit/mL (3 60 unit (0.6 mL) SUBCUT BID 90 01/03/21 01/26/22 Unknown Rx mL) subcutaneous pen (Basaglar Days #108 ml KwikPen U-100 Insulin) insulin aspart U-100 100 unit/mL 30 unit (0.3 mL) SUBCUT TIDAC #130 01/24/21 01/26/22 Unknown Rx subcutaneous solution (Novolog ml U-100 Insulin aspart) aripiprazole 5 mg tablet (Abilify) 5 mg PO QAM #30 tab 02/24/21 01/26/22 05/26/21 Rx sertraline 50 mg tablet (Zoloft) 150 mg PO DAILY 05/27/21 01/26/22 05/26/21 History blood sugar diagnostic (Accu-Chek #300 ea 06/18/21 01/26/22 Unknown Rx Guide test strips) blood-glucose meter #1 ea 06/18/21 01/26/22 Unknown Rx lancets 21 gauge #200 ea 07/15/21 01/26/22 Unknown Rx sulfamethoxazole 800 1 tab PO BID #14 tab 01/07/22 01/26/22 Unknown Rx mg-trimethoprim 160 mg tablet hydrocodone 10 mg-acetaminophen 1 - 2 tab PO Q6H 01/26/22 01/26/22 Unknown History 325 mg tablet Allergies Allergy/AdvReac Type Severity Reaction Status Date / Time Tetracyclines Allergy Severe ALGY-Anaphy Verified 01/26/22 21:16 laxis wool Allergy Intermediate ALGY-Hives Verified 01/26/22 21:16 mushroom Allergy Unknown Verified 01/26/22 21:16 adhesive AdvReac Unknown Verified 01/26/22 21:16 Artificial Sweetners AdvReac Intermediate ADR-Headach Uncoded 01/07/22 09:23 e PFSH Acute PFSH: Medical History (Updated 01/26/22 @ 23:18 by Curtis Echols MD) Acute paronychia of finger of left hand Atrial fibrillation Chronic anticoagulation On hold due to vaginal bleeding Congestive heart failure COPD (chronic obstructive pulmonary disease) Generalized anxiety disorder Hoarding disorder with excessive acquisition Hypertension Hypertension Hyponatremia Hypothyroidism Major depressive disorder, recurrent severe without psychotic features Morbid obesity DELMIS (obstructive sleep apnea) 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 Surgical History History of dental surgery Status post biopsy of skin Family History Other CAD (coronary artery disease) Chronic kidney disease (CKD) Diabetes Hyperlipidemia Hypertension Lung disease Thyroid disease Social History Smoking and tobacco status: former smoker Quit status (tobacco): has quit using tobacco Year quit tobacco: 2006 1 [id number] Second hand smoke exposure: No Smoking risk assessment/counseling performed?: Yes Alcohol intake: never Lives independently: Yes Household members: spouse Marital status: Marital status details: is wheelchair-bound, Current occupational status: disabled Pets and animals: Yes History of recent travel: No Current gender identity: Female Vitals/I&O/Wt Last Vital Signs Temp 99.8 F H 01/26/22 19:51 Pulse 93 01/26/22 19:51 Resp 20 H 01/26/22 20:53 BP 117/83 01/26/22 19:51 Pulse Ox 98 01/26/22 19:51 Weight last 48 hrs Weight 147.418 kg Physical Exam Narrative: Antalgic positioning Const: COMMON NORMALS: alert GENERAL APPEARANCE: cooperative and anxious; not comfortable NUTRITIONAL APPEARANCE: obese ORIENTATION/CONSCIOUSNESS: Yes awake HENMT: COMMON NORMALS: normocephalic, EAC's normal, Normal external nose present and moist oral mucous membranes HEAD & SCALP: normocephalic NOSE: Normal external nose present EXTERNAL AUDITORY CANAL: EAC's normal Neck/C-Spine: COMMON NORMALS: no meningeal signs Chest: CHEST: Yes Symmetrical chest wall rise Resp: COMMON NORMALS: clear to auscultation bilaterally AUSCULTATION: clear to auscultation bilaterally Cardio: COMMON NORMALS: regular rate, regular rhythm and No murmurs present (Cardio) RATE: regular rate RHYTHM: regular rhythm GI: COMMON NORMALS: Normal to inspection, nondistended, normoactive bowel sounds present, Soft to palpation and non-tender PALPATION: Yes Soft to palpation Extremity: COMMON NORMALS: no pedal edema Neuro: COMMON NORMALS: moves all extremities SENSORIUM/ORIENTATION: Yes maycol rt MENINGEAL SIGNS: Yes no meningeal signs Psych: COMMON NORMALS: mental status grossly normal Skin: RASHES: rashes noted (Extensive erythema ) Extensive erythema of left thigh, left torso, breast and under breast, extending down the left leg, as well as bilateral groin and under pannus. Shallow excoriations in several areas. OTHER: Paronychia s/p debridement fourth digit of left hand, No surrounding erythema, no drainage. Data : 01/26/22 20:46 01/26/22 20:46 A&P Assessment and plan (1) Cellulitis: Extensive cellulitis of left side of the body including thigh, flank, chest including breast and under the breast, as well as extending downward down the left leg, and under the pannus, both groins. Continue vancomycin, cefepime empirically. Add also antifungal coverage with Diflucan. Continue nystatin cream. Follow-up blood culture. Case management consultation due to issues with her bed with her being bedbound, prior request for hospital bed. Status: Acute (2) Paronychia of finger of left hand: Status post I&D of paronychia of fourth digit of left hand in urgent care. Antibiotics as above. Status: Acute (3) ESR raised: Status: Acute (4) Inability to walk: Chronically unable to walk, states due to polyarticular severe osteoarthritis for which she needs joint replacements. Status: Acute (5) Hyponatremia: Dehydrated on presentation, received a liter of fluid bolus, recheck sodium. Status: Acute (6) Cholestasis: Possibly secondary to dehydration. No right upper quadrant abdominal pain. Follow-up liver parameters. Status: Acute Plan DM2 with hyperglycemia: Continue insulin, including long-acting, as well as sliding scale. Consistent carbohydrate diet. CHF: Chronically on 4 L nasal cannula oxygen DELMIS: Not on CPAP COPD A. fib HTN HLD Chronic hyponatremia Hypothyroidism Morbid obesity Other chronic conditions noted Attestations Medical Necessity Statement*: Admission of over 2 midnights anticipated for assessment of management of extensive cellulitis of left side of the body. 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
[2022-01-26] MEDS: vancomycin 1,000 MG in sodium chloride 0.9% 250 ML 250 MG IV (23:20)
[2022-01-27] VITALS (10 sets, daily range): BP systolic 91–119; BP diastolic 52–80; PULSE 78–119; RESP 14–22; TEMP 36.4–37.2; O2SAT 95–99; BMI 41.8
[2022-01-27] MEDS: HYDROmorphone 1 mg/mL INJ 1 mL 0.5 MG IVP (00:39)
--- NOTE | 2022-01-27 01:31 | PC.PHAR ---
Vancomycin is dosed at 1500mg IVPB every 12 hours to produce a predicted trough levvel of 12.77 (population based pharmacokinetic analysis). A trough level has been ordered from the lab to be obtained before the fourth dose to confirm and adjust if needed.
[2022-01-27] MEDS: apixaban 5 mg Tablet PO ×2 (02:04→12:51)
[2022-01-27] MEDS: HYDROcodone-acetaminophen 10-325 mg Tablet 1 TAB PO ×4 (02:04→18:46)
[2022-01-27] MEDS: metoprolol tartrate 25 mg Tablet PO ×2 (02:04→12:52)
[2022-01-27] MEDS: vancomycin 1,500 MG/300 ML PIGGYBACK 150 MG IV ×2 (02:06→14:18)
[2022-01-27 05:59] LABS: Basophils # 0.1 10^3/uL (0.0-0.1); Basophils % 0.5 %; Eosinophils # 0.1 10^3/uL (0.0-0.8); Eosinophils % 0.7 %; Hematocrit 38.7 % (37.0-47.0); Hemoglobin 13.4 g/dL (11.5-15.3); Lymphocytes # 1.2 10^3/uL (0.8-4.8); Lymphocytes % 7.8 %; Mean Corpuscular HGB Conc 34.6 g/dL (30.0-36.0); Mean Corpuscular Hemoglobin 28.2 pg (28.0-34.0); Mean Corpuscular Volume 81.3 fl (81-99); Mean Platelet Volume 11.6 fL (7.4-10.4); Monocytes % 6.1 %; Neutrophils % 84.1 %; Nucleated Red Blood Cells % 0 %; Platelet Count 321 10^3/cmm (130-400); Red Blood Count 4.76 10^6/uL (4.1-5.3); Red Cell Distribution Width 13.2 % (12.1-15.1); White Blood Count 15.7 10^3/uL (4.0-10.0)
[2022-01-27] MEDS: FUROsemide 40 mg Tablet 80 MG PO (06:36)
[2022-01-27] MEDS: pantoprazole DR 40 mg Tablet PO (06:36)
[2022-01-27] MEDS: levothyroxine 25 mcg Tablet PO (06:36)
[2022-01-27] MEDS: ARIPiprazole 10 mg Tablet 5 MG PO (06:36)
[2022-01-27 06:37] LABS: Alanine Aminotransferase 10 U/L (0-33); Albumin Level 2.3 g/dL (3.5-5.2); Alkaline Phosphatase 197 IU/L (35-105); Blood Urea Nitrogen 18 mg/dL (6-20); Calcium 8.8 mg/dL (8.5-10.5); Carbon Dioxide 16 mmol/L (22-29); Chloride 89 mmol/L (98-107); Globulin 3.6 g/dL (1.3-4.6); Glomerular Filtration Rate 46.5 mL/min (90-130); Osmolality Calculated 285 mOsm/kg (285-295); Sodium 124 mmol/L (136-145); Total Bilirubin 1.1 mg/dL (0.15-1.2); Total Protein 5.9 g/dL (6.6-8.7)
[2022-01-27] MEDS: gabapentin 300 mg Capsule PO ×2 (06:42→12:54)
[2022-01-27 06:52] LABS: Glucose Point of Care 536 mg/dL (70-110)
[2022-01-27 06:52] LABS: Glucose Point of Care 557 mg/dL (70-110)
[2022-01-27 06:56] LABS: Glucose 550 mg/dL (65-115)
[2022-01-27 06:57] LABS: Anion Gap 23.5 (5-19); Potassium 4.5 mmol/L (3.5-5.1)
[2022-01-27 06:58] LABS: Aspartate Amino Transferase 15 U/L (0-32)
[2022-01-27] MEDS: insulin glargine 100 units/1 mL 60 UNIT SUBCUT ×2 (07:13→17:28)
[2022-01-27] MEDS: insulin lispro 100 unit/1 mL SUBCUT ×4 (07:13→22:40)
[2022-01-27] MEDS: sertraline 50 mg Tablet 150 MG PO (09:17)
[2022-01-27] MEDS: cefepime 2,000 MG in sodium chloride 0.9% (plus) 50 ML 100 MG IV ×2 (09:18→22:39)
[2022-01-27] MEDS: morphine 4 mg/mL SDV 1 mL IVP (11:19)
[2022-01-27] MEDS: nystatin cream 30 gm 1 APPLIC TOPICAL ×2 (11:19→17:28)
[2022-01-27 11:33] LABS: Glucose Point of Care 314 mg/dL (70-110)
--- NOTE | 2022-01-27 12:47 | P.PN_ITS ---
Subjective Subjective: Seen this morning. Blood sugar 450 in AM. Patient got insulin. Sodium 124. Patient states her cellulitis site hurts. With help of nursing staff we flipped the patient and examined her. Used pen to neville the area. On 2 L nasal cannula Vitals/I&O/Wt Last Vital Signs Temp 98.2 F 01/27/22 11:33 Pulse 91 01/27/22 11:33 Resp 19 H 01/27/22 11:33 BP 107/71 01/27/22 11:33 Pulse Ox 99 01/27/22 11:33 01/26/22 01/27/22 01/27/22 22:59 06:59 14:59 Intake Total 2600 / 2600 50 / 50 Output Total 1600 / 1600 Balance 1000 / 1000 50 / 50 Weight last 48 hrs Weight 139.616 kg Weight 136.259 kg Weight 147.418 kg Physical Exam Narrative: General: Alert oriented x3, patient seen laying in bed appearing comfortable. HEENT: Normocephalic, atraumatic, EOMI, breathing 2 L nasal cannula appearing comfortable. Cardio: Regular rate rhythm, normal S1-S2, no murmurs Respiratory: Clear to auscultation bilaterally GI: Abdomen soft, nontender, nondistended, bowel sounds +, obese large rounded abdomen Extremities: Extensive erythema of left thigh, left torso, breast, under breast, extending down left leg as well as bilateral groin and under pannus, shallow excoriations and several areas on calves especially, paronychia status post debridement for change of left hand, no surrounding erythema, no drainage Urinary Catheter Management: Casiano: Cath Placed During This Visit: yes Urinary Catheter Date of Insertion: 01/27/22 Urinary Catheter Time of Insertion: 11:30 Data : 01/27/22 05:39 01/27/22 05:39 Micro: Microbiology 01/26/22 23:20 Blood Culture - Preliminary Blood SPECIMEN COLLECTED A&P Assessment and plan (1) Hyponatremia: Status: Acute (2) Paronychia of finger of left hand: Status: Acute (3) Cellulitis: Status: Acute (4) Inability to walk: Status: Acute (5) Rash: Status: Acute (6) Oxygen dependent: Status: Acute (7) Atrial fibrillation: Status: Acute Qualifiers: Atrial fibrillation type: longstanding persistent Qualified Code(s): I48.11 - Longstanding persistent atrial fibrillation (8) Congestive heart failure: Status: Acute Qualifiers: Heart failure type: unspecified Heart failure chronicity: unspecified Qualified Code(s): I50.9 - Heart failure, unspecified (9) COPD (chronic obstructive pulmonary disease): Status: Acute Qualifiers: COPD type: unspecified COPD Qualified Code(s): J44.9 - Chronic obstructive pulmonary disease, unspecified (10) CKD (chronic kidney disease): Status: Acute (11) Acute hyperglycemia: Status: Acute (12) Long-term insulin use: Status: Acute (13) Hyperlipidemia: Status: Acute Qualifiers: Hyperlipidemia type: mixed hyperlipidemia Qualified Code(s): E78.2 - Mixed hyperlipidemia (14) Hyperglycemia: Status: Acute (15) 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 (16) Generalized anxiety disorder: Status: Chronic (17) Major depressive disorder, recurrent severe without psychotic features: Status: Chronic (18) Hypertension: Status: Chronic Qualifiers: Hypertension type: renovascular hypertension Qualified Code(s): I15.0 - Renovascular hypertension Plan #Extensive cellulitis/severe contact dermatitis #Paronychia finger left hand #Chronically unable to walk, wheelchair-bound #HAGMA #Acute on chronic hyponatremia #Hx of Hyperosmolar nonketotic hyperglycemia #Acute kidney injury #Diabetes mellitus with hyperglycemia #Chronic congestive heart failure with preserved EF #Obstructive sleep apnea #COPD #Atrial fibrillation #Hypertension #Hyperlipidemia #Hypothyroidism #Morbid obesity -Continue on vancomycin and cefepime. Continue Diflucan. Continue nystatin ? Follow-up blood culture ? Case management on board to try to assist with obtaining hospital bed ? Clinically unable to walk. ? Hold Lasix for now. ? Patient severely hyperglycemic. Sodium 124. Most likely secondary to hyperglycemia. Corrected sodium is higher. ? Continue IV fluids, insulin ? Apply zinc oxide cream in perineal area ? Benadryl 25 every 6 hours as needed ? Continue aripiprazole, Eliquis ? Hold gabapentin in light of DWIGHT -Continue metoprolol 25 twice daily, Zoloft ? Hold Bactrim - Check ketones, BMP again and manage accordingly. - Start NS 100 cc/hr Full code DVT prophylaxis: Laith Diggs Medical Necessity Statement*: Will require inpatient hospitalization for m anagement of cellulitis, hyperglycemia and other co-morbid conditions. 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 [employer] Fwd Diagnoses Hyponatremia E87.1 Paronychia of finger of left hand L03.012 Cellulitis L03.90 Inability to walk R26.2 Rash R21 Oxygen dependent Z99.81 Atrial fibrillation I48.11 Atrial fibrillation type: longstanding persistent Congestive heart failure I50.9 Heart failure type: unspecified Heart failure chronicity: unspecified COPD (chronic obstructive pulmonary disease) J44.9 COPD type: unspecified COPD CKD (chronic kidney disease) N18.9 Acute hyperglycemia R73.9 Long-term insulin use Z79.4 Hyperlipidemia E78.2 Hyperlipidemia type: mixed hyperlipidemia Hyperglycemia R73.9 Hoarding disorder with excessive acquisition F42.3 Generalized anxiety disorder F41.1 Major depressive disorder, recurrent severe without psychotic features F33.2 Hypertension I15.0 Hypertension type: renovascular hypertension
[2022-01-27 15:08] LABS: Base Excess VBG -4.6 mmol/L (-3.0-3.0); Blood Gas Operator Identificat BD; Blood Gas Sample Site VEIN; Blood Gas Sample Type Venous; HCO3 VBG 18.2 mmol/L (24-28); PCO2 VBG 27.6 mmHg (41-51); PO2 VBG 61.3 mmHg (25-40); Venous Blood Gas Hematocrit 47.2 % (37-47); pH VBG 7.43 (7.32-7.42)
[2022-01-27 15:18] LABS: Glucose 256 mg/dL (65-115)
[2022-01-27 15:28] LABS: Ketone (Acetest) Serum Negative (Negative)
[2022-01-27 15:33] LABS: Anion Gap 22.5 (5-19); Blood Urea Nitrogen 22 mg/dL (6-20); Calcium 9.2 mg/dL (8.5-10.5); Carbon Dioxide 19 mmol/L (22-29); Chloride 91 mmol/L (98-107); Glomerular Filtration Rate 38.9 mL/min (90-130); Osmolality Calculated 278 mOsm/kg (285-295); Potassium 4.5 mmol/L (3.5-5.1); Sodium 128 mmol/L (136-145)
[2022-01-27 17:10] LABS: Glucose Point of Care 239 mg/dL (70-110)
[2022-01-27 20:27] LABS: Glucose Point of Care 220 mg/dL (70-110)
[2022-01-27] MEDS: gabapentin 100 mg Capsule PO (22:40)
[2022-01-28] VITALS (7 sets, daily range): BP systolic 102–138; BP diastolic 66–75; PULSE 84–104; RESP 16–18; TEMP 35.9–36.8; O2SAT 95–99
[2022-01-28] MEDS: metoprolol tartrate 25 mg Tablet PO ×2 (01:39→12:53)
[2022-01-28] MEDS: apixaban 5 mg Tablet PO ×2 (01:39→12:53)
[2022-01-28] MEDS: HYDROcodone-acetaminophen 10-325 mg Tablet 1 TAB PO ×4 (01:39→19:00)
[2022-01-28] MEDS: vancomycin 1,500 MG/300 ML PIGGYBACK 150 MG IV (01:41)
[2022-01-28] MEDS: levothyroxine 25 mcg Tablet PO (05:54)
[2022-01-28] MEDS: pantoprazole DR 40 mg Tablet PO (05:54)
[2022-01-28] MEDS: gabapentin 100 mg Capsule PO ×3 (05:54→21:51)
[2022-01-28] MEDS: ARIPiprazole 10 mg Tablet 5 MG PO (05:54)
[2022-01-28 06:32] LABS: Glucose Point of Care 215 mg/dL (70-110)
[2022-01-28] MEDS: sertraline 50 mg Tablet 150 MG PO (08:40)
[2022-01-28] MEDS: insulin lispro 100 unit/1 mL SUBCUT ×4 (08:41→21:53)
[2022-01-28] MEDS: insulin glargine 100 units/1 mL 60 UNIT SUBCUT (08:44)
[2022-01-28] MEDS: cefepime 2,000 MG in sodium chloride 0.9% (plus) 50 ML 100 MG IV ×2 (08:47→21:52)
--- NOTE | 2022-01-28 09:42 | PC.NURSE ---
Addendum entered by OCTAVIA Dhaliwal 01/28/22 09:57: Bed bath Unable to do pericare. Original Note: Pt was unable to tolerate a complete bed bath due to pain with movement. Sheets, pillowcases, blanket, gown and socks changed.
[2022-01-28 10:20] LABS: Basophils # 0.1 10^3/uL (0.0-0.1); Basophils % 0.5 %; Eosinophils # 0.4 10^3/uL (0.0-0.8); Eosinophils % 3.3 %; Hematocrit 41.1 % (37.0-47.0); Hemoglobin 13.4 g/dL (11.5-15.3); Lymphocytes # 1.1 10^3/uL (0.8-4.8); Lymphocytes % 10.1 %; Mean Corpuscular HGB Conc 32.6 g/dL (30.0-36.0); Mean Corpuscular Hemoglobin 28.3 pg (28.0-34.0); Mean Corpuscular Volume 86.7 fl (81-99); Mean Platelet Volume 11.4 fL (7.4-10.4); Monocytes # 0.7 10^3/uL (0.2-0.9); Monocytes % 6.1 %; Neutrophils % 79.2 %; Nucleated Red Blood Cells % 0 %; Platelet Count 324 10^3/cmm (130-400); Red Blood Count 4.74 10^6/uL (4.1-5.3); Red Cell Distribution Width 13.4 % (12.1-15.1); White Blood Count 11.2 10^3/uL (4.0-10.0)
[2022-01-28] MEDS: nystatin cream 30 gm 1 APPLIC TOPICAL ×2 (10:34→17:53)
[2022-01-28 10:49] LABS: Anion Gap 19.9 (5-19); Blood Urea Nitrogen 31 mg/dL (6-20); Calcium 9.2 mg/dL (8.5-10.5); Carbon Dioxide 20 mmol/L (22-29); Chloride 89 mmol/L (98-107); Glomerular Filtration Rate 31.1 mL/min (90-130); Glucose 213 mg/dL (65-115); Osmolality Calculated 273 mOsm/kg (285-295); Potassium 3.9 mmol/L (3.5-5.1); Sodium 125 mmol/L (136-145)
[2022-01-28] MEDS: morphine 4 mg/mL SDV 1 mL IVP (10:59)
[2022-01-28 11:38] LABS: Glucose Point of Care 196 mg/dL (70-110)
--- NOTE | 2022-01-28 12:30 | PM.PN ---
Subjective Subjective: seen this AM. no acute events overnight. Laying flat in bed on 2L NC. Vitals/I&O/Wt Last Vital Signs Temp 97.3 F L 01/28/22 11:49 Pulse 84 01/28/22 11:49 Resp 16 01/28/22 11:49 BP 102/68 01/28/22 11:49 Pulse Ox 99 01/28/22 11:49 01/27/22 01/28/22 01/28/22 22:59 06:59 14:59 Intake Total 300 / 470 350 / 820 290 / 290 Output Total 775 / 775 400 / 1175 Balance -475 / -305 -50 / -355 290 / 290 Weight last 48 hrs Weight 138.119 kg Weight 139.616 kg Weight 136.259 kg Weight 147.418 kg Physical Exam Narrative: General: Alert oriented x3, patient seen laying in bed appearing comfortable. HEENT: Normocephalic, atraumatic, EOMI, breathing 2 L nasal cannula appearing comfortable. Cardio: Regular rate rhythm, normal S1-S2, no murmurs Respiratory: Clear to auscultation bilaterally GI: Abdomen soft, nontender, nondistended, bowel sounds +, obese large rounded abdomen Extremities: Extensive erythema of left thigh, left torso, breast, under breast, extending down left leg as well as bilateral groin and under pannus, shallow excoriations and several areas on calves especially, paronychia status post debridement for change of left hand, no surrounding erythema, no drainage Images taken at admission, unchanged today. Urinary Catheter Management: Casiano: Cath Placed During This Visit: yes Reason for Continuing Indwelling Catheter: Other Urinary Catheter Date of Insertion: 01/27/22 Urinary Catheter Time of Insertion: 11:30 Data : 01/28/22 09:56 01/28/22 09:56 Micro: Microbiology 01/27/22 17:32 Urine Culture - Preliminary Urine Catheterized 01/26/22 23:20 Blood Culture - Preliminary Blood A&P Assessment and plan (1) Hyponatremia: Status: Acute (2) Cellulitis: Status: Acute (3) Inability to walk: Status: Acute (4) Acute paronychia of finger of left hand: Status: Acute (5) Obesity with alveolar hypoventilation: Status: Acute Qualifiers: Obesity classification: adult class 3 (BMI >= 40) Serious obesity comorbidity presence: with serious comorbidity Body mass index: BMI 50.0-59.9 Qualified Code(s): E66.2 - Morbid (severe) obesity with alveolar hypoventilation; Z68.43 - Body mass index [BMI] 50.0-59.9, adult (6) Morbid obesity: Status: Acute (7) DELMIS (obstructive sleep apnea): Status: Acute (8) Atrial fibrillation: Status: Acute Qualifiers: Atrial fibrillation type: longstanding persistent Qualified Code(s): I48.11 - Longstanding persistent atrial fibrillation (9) Oxygen dependent: Status: Acute (10) Congestive heart failure: Status: Acute Qualifiers: Heart failure type: unspecified Heart failure chronicity: unspecified Qualified Code(s): I50.9 - Heart failure, unspecified (11) COPD (chronic obstructive pulmonary disease): Status: Acute Qualifiers: COPD type: unspecified COPD Qualified Code(s): J44.9 - Chronic obstructive pulmonary disease, unspecified (12) Long-term insulin use: Status: Acute (13) Hyperlipidemia: Status: Acute Qualifiers: Hyperlipidemia type: mixed hyperlipidemia Qualified Code(s): E78.2 - Mixed hyperlipidemia (14) DWIGHT (acute kidney injury): Status: Acute (15) UTI (urinary tract infection): Status: Acute (16) Hypertension: Status: Chronic Qualifiers: Hypertension type: renovascular hypertension Qualified Code(s): I15.0 - Renovascular hypertension (17) Major depressive disorder, recurrent severe without psychotic features: Status: Chronic (18) 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 (19) Generalized anxiety disorder: Status: Chronic (20) Hyperglycemia: Status: Acute (21) Intertrigo: Status: Acute Plan #Extensive cellulitis/severe contact dermatitis #Paronychia finger left hand #Chronically unable to walk, wheelchair-bound #HAGMA #Acute on chronic hyponatremia #Hx of Hyperosmolar nonketotic hyperglycemia #Acute kidney injury #Diabetes mellitus with hyperglycemia #Chronic congestive heart failure with preserved EF #Obstructive sleep apnea #COPD #Atrial fibrillation #Hypertension #Hyperlipidemia #Hypothyroidism #Morbid obesity -Continue on vancomycin and cefepime.? Continue Diflucan.? Continue nystatin. Renally dose the vanc ? Follow-up blood culture. BCx positive for gram positive cocci in clusters ? Case management on board to try to assist with obtaining hospital bed ? Clinically unable to walk. ? Hold Lasix for now. ? Patient severely hyperglycemic.? Sodium 125.? Most likely secondary to hyperglycemia.? Corrected sodium is higher. Could be component of SIADH as well, on zoloft ? Continue IV fluids, insulin ? Apply zinc oxide cream in perineal area ? Benadryl 25 every 6 hours as needed ? Continue aripiprazole, Eliquis ? Dose reduce gabapentin 100 TID for now. - Cr 1.7 today, worsening. Continue gentle hydration 100 cc/hr -Continue metoprolol 25 twice daily, Zoloft ? Hold Bactrim - Will image abdominal wall area that was not seen on imaging at admission. - Apply santyl to areas of abdomen. updated RN. 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 Fwd Diagnoses Hyponatremia E87.1 Cellulitis L03.90 Inability to walk R26.2 Acute paronychia of finger of left hand L03.012 Obesity with alveolar hypoventilation E66.2; Z68.43 Obesity classification: adult class 3 (BMI >= 40) Serious obesity comorbidity presence: with serious comorbidity Body mass index: BMI 50.0-59.9 Morbid obesity E66.01 DELMIS (obstructive sleep apnea) G47.33 Atrial fibrillation I48.11 Atrial fibrillation type: longstanding persistent Oxygen dependent Z99.81 Congestive heart failure I50.9 Heart failure type: unspecified Heart failure chronicity: unspecified COPD (chronic obstructive pulmonary disease) J44.9 COPD type: unspecified COPD Long-term insulin use Z79.4 Hyperlipidemia E78.2 Hyperlipidemia type: mixed hyperlipidemia DWIGHT (acute kidney injury) N17.9 UTI (urinary tract infection) N39.0 Hypertension I15.0 Hypertension type: renovascular hypertension Major depressive disorder, recurrent severe without psychotic features F33.2 Hoarding disorder with excessive acquisition F42.3 Generalized anxiety disorder F41.1 Hyperglycemia R73.9 Intertrigo L30.4
[2022-01-28] MEDS: sodium chloride 0.9% 1,000 ML 100 ML IV ×2 (12:48→21:51)
[2022-01-28 13:36] LABS: Vancomycin Trough 33.2 ug/mL (10-15)
[2022-01-28] MEDS: fluconazole 100 mg Tablet 150 MG PO (14:05)
[2022-01-28 17:14] LABS: Glucose Point of Care 181 mg/dL (70-110)
[2022-01-28] MEDS: insulin glargine 100 units/1 mL 65 UNIT SUBCUT (17:53)
[2022-01-28 20:57] LABS: Glucose Point of Care 244 mg/dL (70-110)
[2022-01-29] VITALS (10 sets, daily range): BP systolic 96–115; BP diastolic 57–76; PULSE 82–90; RESP 16–19; TEMP 36.1–36.8; O2SAT 92–100
[2022-01-29] MEDS: morphine 4 mg/mL SDV 1 mL IVP ×4 (00:14→15:12)
[2022-01-29] MEDS: metoprolol tartrate 25 mg Tablet PO ×2 (01:00→13:26)
[2022-01-29] MEDS: HYDROcodone-acetaminophen 10-325 mg Tablet 1 TAB PO ×4 (01:00→19:25)
[2022-01-29] MEDS: apixaban 5 mg Tablet PO ×2 (01:00→13:26)
[2022-01-29] MEDS: gabapentin 100 mg Capsule PO ×3 (05:46→20:20)
[2022-01-29] MEDS: pantoprazole DR 40 mg Tablet PO (05:46)
[2022-01-29] MEDS: ARIPiprazole 10 mg Tablet 5 MG PO (05:46)
[2022-01-29] MEDS: levothyroxine 25 mcg Tablet PO (05:46)
[2022-01-29 06:00] LABS: Basophils # 0.1 10^3/uL (0.0-0.1); Basophils % 0.5 %; Eosinophils # 0.5 10^3/uL (0.0-0.8); Eosinophils % 3.9 %; Hematocrit 41.9 % (37.0-47.0); Hemoglobin 13.5 g/dL (11.5-15.3); Lymphocytes # 1.6 10^3/uL (0.8-4.8); Mean Corpuscular HGB Conc 32.2 g/dL (30.0-36.0); Mean Corpuscular Hemoglobin 28.1 pg (28.0-34.0); Mean Corpuscular Volume 87.3 fl (81-99); Mean Platelet Volume 11.3 fL (7.4-10.4); Monocytes # 0.9 10^3/uL (0.2-0.9); Monocytes % 7.3 %; Neutrophils # 9.05 10^3/uL (1.8-7.7); Neutrophils % 74.4 %; Nucleated Red Blood Cells % 0 %; Platelet Count 359 10^3/cmm (130-400); Red Cell Distribution Width 13.5 % (12.1-15.1); White Blood Count 12.2 10^3/uL (4.0-10.0)
[2022-01-29 06:19] LABS: Blood Urea Nitrogen 31 mg/dL (6-20); Calcium 8.7 mg/dL (8.5-10.5); Carbon Dioxide 20 mmol/L (22-29); Chloride 96 mmol/L (98-107); Glomerular Filtration Rate 29.1 mL/min (90-130); Glucose 133 mg/dL (65-115); Magnesium 2.1 mg/dL (1.7-2.3); Osmolality Calculated 284 mOsm/kg (285-295); Sodium 133 mmol/L (136-145)
[2022-01-29] MEDS: ondansetron 4 MG Tablet PO (07:04)
--- NOTE | 2022-01-29 07:35 | PM.PN ---
Subjective Subjective: Seen this morning. She is still has a lot of pain at cellulitis site. Rash however has improved significantly. No other acute events overnight. Urine culture positive for yeast. We will remove Casiano today. Vitals/I&O/Wt Last Vital Signs Temp 97.6 F 01/29/22 04:00 Pulse 85 01/29/22 04:00 Resp 18 01/29/22 05:55 BP 115/76 01/29/22 04:00 Pulse Ox 97 01/29/22 05:55 01/28/22 01/29/22 01/29/22 22:59 06:59 14:59 Intake Total 1195 / 1725 1200 / 2925 Output Total 600 / 600 500 / 1100 Balance 595 / 1125 700 / 1825 Weight last 48 hrs Weight 140.931 kg Weight 138.119 kg Physical Exam Narrative: General: Alert oriented x3, patient seen laying in bed appearing comfortable. HEENT: Normocephalic, atraumatic, EOMI, breathing 2 L nasal cannula appearing comfortable. Cardio: Regular rate rhythm, normal S1-S2, no murmurs Respiratory: Clear to auscultation bilaterally GI: Abdomen soft, nontender, nondistended, bowel sounds +, obese large rounded abdomen Extremities: Extensive erythema of left thigh, left torso, breast, under breast, extending down left leg as well as bilateral groin and under pannus, shallow excoriations and several areas on calves especially, paronychia status post debridement for change of left hand, no surrounding erythema, no drainage Urinary Catheter Management: Casiano: Cath Placed During This Visit: yes Reason for Continuing Indwelling Catheter: Other Urinary Catheter Date of Insertion: 01/27/22 Urinary Catheter Time of Insertion: 11:30 Data : 01/29/22 05:51 01/29/22 05:51 Micro: Microbiology 01/27/22 17:32 MRSA Culture - Final Nose 01/26/22 23:20 Blood Culture - Preliminary Blood Staphylococcus sp coag neg 01/27/22 17:32 Urine Culture - Preliminary Urine Catheterized A&P Assessment and plan (1) Hyponatremia: Status: Acute (2) Paronychia of finger of left hand: Status: Acute (3) Cellulitis: Status: Acute (4) Rash: Status: Acute (5) Inability to walk: Status: Acute (6) Acute paronychia of finger of left hand: Status: Acute (7) Obesity with alveolar hypoventilation: Status: Acute Qualifiers: Obesity classification: adult class 3 (BMI >= 40) Serious obesity comorbidity presence: with serious comorbidity Body mass index: BMI 50.0-59.9 Qualified Code(s): E66.2 - Morbid (severe) obesity with alveolar hypoventilation; Z68.43 - Body mass index [BMI] 50.0-59.9, adult (8) DELMIS (obstructive sleep apnea): Status: Acute (9) Oxygen dependent: Status: Acute (10) Atrial fibrillation: Status: Acute Qualifiers: Atrial fibrillation type: longstanding persistent Qualified Code(s): I48.11 - Longstanding persistent atrial fibrillation (11) Congestive heart failure: Status: Acute Qualifiers: Heart failure type: unspecified Heart failure chronicity: unspecified Qualified Code(s): I50.9 - Heart failure, unspecified (12) COPD (chronic obstructive pulmonary disease): Status: Acute Qualifiers: COPD type: unspecified COPD Qualified Code(s): J44.9 - Chronic obstructive pulmonary disease, unspecified (13) CKD (chronic kidney disease): Status: Acute (14) Acute hyperglycemia: Status: Acute (15) Long-term insulin use: Status: Acute (16) Hyperlipidemia: Status: Acute Qualifiers: Hyperlipidemia type: mixed hyperlipidemia Qualified Code(s): E78.2 - Mixed hyperlipidemia (17) DWIGHT (acute kidney injury): Status: Acute (18) UTI (urinary tract infection): Status: Acute (19) Hyperglycemia: Status: Acute (20) Generalized anxiety disorder: Status: Chronic (21) Major depressive disorder, recurrent severe without psychotic features: Status: Chronic (22) Hypertension: Status: Chronic Qualifiers: Hypertension type: renovascular hypertension Qualified Code(s): I15.0 - Renovascular hypertension Plan #Extensive cellulitis/severe contact dermatitis #Paronychia finger left hand #Chronically unable to walk, wheelchair-bound #HAGMA #Acute on chronic hyponatremia #Hx of Hyperosmolar nonketotic hyperglycemia #Acute kidney injury #Diabetes mellitus with hyperglycemia #Chronic congestive heart failure with preserved EF #Obstructive sleep apnea #COPD #Atrial fibrillation #Hypertension #Hyperlipidemia #Hypothyroidism #Morbid obesity -Continue on vancomycin and cefepime.? Continue Diflucan.? Continue nystatin. Renally dose the vanc ? Follow-up blood culture. BCx positive for gram positive cocci in clusters, epidermidis, most likely contaminant. ? Case management on board to try to assist with obtaining hospital bed ? Clinically unable to walk. ? Hold Lasix for now. ? Sodium better today ? Continue IV fluids, insulin ? Apply zinc oxide cream in perineal area ? Benadryl 25 every 6 hours as needed ? Continue aripiprazole, Eliquis ? Dose reduce gabapentin 100 TID for now. - Cr 1.7 today, worsening. Continue gentle hydration 100 cc/hr, Vanc levels high, will dose reduce. Cr worsening due to vanc injury. will hold vanc for now. -Continue metoprolol 25 twice daily, Zoloft ? Hold Bactrim - Apply santyl to areas of abdomen. updated RN. - Hydrocodone for pain control - Bowel regimen - Rash significantly better Full code DVT prophylaxis: [facility] Medical Necessity Statement*: Will required hospitalization for IV antibiotics, tx of DWIGHT, hyperglycemia, cellulitis. Anticipate > 48 hour stay. Coding Level of Care Code Acute Icu Staff Nurse for [facility] Fwd Diagnoses Hyponatremia E87.1 Paronychia of finger of left hand L03.012 Cellulitis L03.90 Rash R21 Inability to walk R26.2 Acute paronychia of finger of left hand L03.012 Obesity with alveolar hypoventilation E66.2; Z68.43 Obesity classification: adult class 3 (BMI >= 40) Serious obesity comorbidity presence: with serious comorbidity Body mass index: BMI 50.0-59.9 DELMIS (obstructive sleep apnea) G47.33 Oxygen dependent Z99.81 Atrial fibrillation I48.11 Atrial fibrillation type: longstanding persistent Congestive heart failure I50.9 Heart failure type: unspecified Heart failure chronicity: unspecified COPD (chronic obstructive pulmonary disease) J44.9 COPD type: unspecified COPD CKD (chronic kidney disease) N18.9 Acute hyperglycemia R73.9 Long-term insulin use Z79.4 Hyperlipidemia E78.2 Hyperlipidemia type: mixed hyperlipidemia DWIGHT (acute kidney injury) N17.9 UTI (urinary tract infection) N39.0 Hyperglycemia R73.9 Generalized anxiety disorder F41.1 Major depressive disorder, recurrent severe without psychotic features F33.2 Hypertension I15.0 Hypertension type: renovascular hypertension
[2022-01-29] MEDS: insulin glargine 100 units/1 mL 65 UNIT SUBCUT ×2 (08:35→17:49)
[2022-01-29] MEDS: fluconazole 100 mg Tablet 150 MG PO (08:36)
[2022-01-29] MEDS: cefepime 2,000 MG in sodium chloride 0.9% (plus) 50 ML 100 MG IV (08:36)
[2022-01-29] MEDS: sertraline 50 mg Tablet 150 MG PO (08:36)
[2022-01-29] MEDS: sodium chloride 0.9% 1,000 ML 100 ML IV ×2 (08:38→20:21)
[2022-01-29] MEDS: nystatin cream 30 gm 1 APPLIC TOPICAL (08:38)
--- NOTE | 2022-01-29 09:17 | PC.SOCIAL ---
IMM Update Imm updated with patient, copy of page 2 provided. Patient verbalized understanding. Copy initialed, dated and timed, placed in chart.
[2022-01-29 11:27] LABS: Glucose Point of Care 194 mg/dL (70-110)
[2022-01-29 11:27] LABS: Glucose Point of Care 129 mg/dL (70-110)
[2022-01-29] MEDS: insulin lispro 100 unit/1 mL SUBCUT ×2 (11:58→17:49)
[2022-01-29] MEDS: vancomycin 1,250 MG/250 ML PIGGYBACK 250 MG IV (13:25)
[2022-01-29] MEDS: sodium chloride 0.9% 500 ML IV (14:31)
[2022-01-29] MEDS: permethrin cream 5% 60 gm 1 APPLIC TOPICAL (14:56)
[2022-01-29 18:02] LABS: Glucose Point of Care 113 mg/dL (70-110)
[2022-01-29 23:25] LABS: Glucose Point of Care 125 mg/dL (70-110)
[2022-01-30] VITALS: BP 107/69; PULSE 80; RESP 18; TEMP 36.4; O2SAT 99
[2022-01-30] MEDS: apixaban 5 mg Tablet PO ×2 (00:28→13:22)
[2022-01-30] MEDS: HYDROcodone-acetaminophen 10-325 mg Tablet 1 TAB PO ×2 (01:30→13:23)
[2022-01-30 04:00] VITALS: BP 123/74; PULSE 85; RESP 17; TEMP 36.7; O2SAT 95
[2022-01-30] MEDS: ARIPiprazole 10 mg Tablet 5 MG PO (05:50)
[2022-01-30] MEDS: pantoprazole DR 40 mg Tablet PO (05:50)
[2022-01-30] MEDS: gabapentin 100 mg Capsule PO ×3 (05:50→22:13)
[2022-01-30] MEDS: levothyroxine 25 mcg Tablet PO (05:50)
[2022-01-30 06:00] LABS: Basophils % 0.4 %; Eosinophils # 0.4 10^3/uL (0.0-0.8); Eosinophils % 3.7 %; Hematocrit 38.3 % (37.0-47.0); Hemoglobin 12.1 g/dL (11.5-15.3); Lymphocytes # 1.3 10^3/uL (0.8-4.8); Lymphocytes % 13.2 %; Mean Corpuscular HGB Conc 31.6 g/dL (30.0-36.0); Mean Corpuscular Hemoglobin 27.9 pg (28.0-34.0); Mean Corpuscular Volume 88.5 fl (81-99); Mean Platelet Volume 11.3 fL (7.4-10.4); Monocytes # 0.8 10^3/uL (0.2-0.9); Monocytes % 7.5 %; Neutrophils # 7.44 10^3/uL (1.8-7.7); Neutrophils % 74.1 %; Nucleated Red Blood Cells % 0 %; Platelet Count 318 10^3/cmm (130-400); Red Blood Count 4.33 10^6/uL (4.1-5.3); Red Cell Distribution Width 13.6 % (12.1-15.1)
[2022-01-30 06:24] LABS: Glucose Point of Care 92 mg/dL (70-110)
[2022-01-30 06:28] LABS: Blood Urea Nitrogen 34 mg/dL (6-20); Calcium 8.5 mg/dL (8.5-10.5); Carbon Dioxide 20 mmol/L (22-29); Chloride 100 mmol/L (98-107); Glomerular Filtration Rate 25.8 mL/min (90-130); Glucose 86 mg/dL (65-115); Osmolality Calculated 285 mOsm/kg (285-295); Sodium 134 mmol/L (136-145)
[2022-01-30 06:33] LABS: Anion Gap 17.9 (5-19); Potassium 3.9 mmol/L (3.5-5.1)
[2022-01-30 07:52] VITALS: BP 122/73; PULSE 95; RESP 16; TEMP 36.7; O2SAT 100
[2022-01-30] MEDS: fluconazole 100 mg Tablet 150 MG PO (08:21)
[2022-01-30] MEDS: cefepime 2,000 MG in sodium chloride 0.9% (plus) 50 ML 100 MG IV (08:21)
[2022-01-30] MEDS: nystatin cream 30 gm 1 APPLIC TOPICAL ×2 (08:22→17:10)
[2022-01-30] MEDS: sertraline 50 mg Tablet 150 MG PO (08:22)
[2022-01-30] MEDS: sodium chloride 0.9% 1,000 ML 100 ML IV (11:13)
[2022-01-30 11:14] VITALS: BP 140/71; PULSE 96; RESP 17; TEMP 36.3; O2SAT 98
--- NOTE | 2022-01-30 11:33 | PM.PN ---
Subjective Subjective: seen this Am. Patient improving. Cr worsened to 2.0, AG has normalized, WBC count normazlied. No acute events overnight Vitals/I&O/Wt Last Vital Signs Temp 97.4 F L 01/30/22 11:14 Pulse 96 01/30/22 11:14 Resp 17 01/30/22 11:14 BP 140/71 01/30/22 11:14 Pulse Ox 98 01/30/22 11:14 01/29/22 01/30/22 01/30/22 22:59 06:59 14:59 Intake Total 2140 / 3430 2370 / 5800 290 / 290 Balance 2140 / 2930 2370 / 5300 290 / 290 Weight last 48 hrs Weight 147.962 kg Weight 140.931 kg Physical Exam Narrative: General: Alert oriented x3, patient seen laying in bed appearing comfortable. HEENT: Normocephalic, atraumatic, EOMI, breathing 2 L nasal cannula appearing comfortable. Cardio: Regular rate rhythm, normal S1-S2, no murmurs Respiratory: Clear to auscultation bilaterally GI: Abdomen soft, nontender, nondistended, bowel sounds +, obese large rounded abdomen Extremities:Improving erythema of left thigh, left torso, breast, under breast, extending down left leg as well as bilateral groin and under pannus, shallow excoriations and several areas on calves especially, paronychia status post debridement for change of left hand, no surrounding erythema, no drainage - MUCH IMPROVED COMPARED TO ADMISSION. Urinary Catheter Management: Casiano: Cath Placed During This Visit: yes, but has since been removed by the nurse Reason for Continuing Indwelling Catheter: Decision to DC Catheter Urinary Catheter Date of Insertion: 01/27/22 Urinary Catheter Time of Insertion: 11:30 Date Urinary Catheter Removed: 01/29/22 Time Urinary Catheter Discontinued: 14:41 Data : 01/30/22 04:36 01/30/22 04:36 Micro: Microbiology 01/26/22 23:20 Blood Culture - Final Blood Staphylococcus sp coag neg 01/27/22 17:32 Urine Culture - Preliminary Urine Catheterized Yeast species A&P Assessment and plan (1) Hyponatremia: Status: Acute (2) Cellulitis: Status: Acute (3) Rash: Status: Acute (4) Inability to walk: Status: Acute (5) Acute paronychia of finger of left hand: Status: Acute (6) DELMIS (obstructive sleep apnea): Status: Acute (7) Atrial fibrillation: Status: Acute Qualifiers: Atrial fibrillation type: longstanding persistent Qualified Code(s): I48.11 - Longstanding persistent atrial fibrillation (8) Congestive heart failure: Status: Acute Qualifiers: Heart failure type: unspecified Heart failure chronicity: unspecified Qualified Code(s): I50.9 - Heart failure, unspecified (9) COPD (chronic obstructive pulmonary disease): Status: Acute Qualifiers: COPD type: unspecified COPD Qualified Code(s): J44.9 - Chronic obstructive pulmonary disease, unspecified (10) CKD (chronic kidney disease): Status: Acute (11) Long-term insulin use: Status: Acute (12) Hyperlipidemia: Status: Acute Qualifiers: Hyperlipidemia type: mixed hyperlipidemia Qualified Code(s): E78.2 - Mixed hyperlipidemia (13) DWIGHT (acute kidney injury): Status: Acute (14) UTI (urinary tract infection): Status: Acute (15) Hyperglycemia: Status: Acute (16) Generalized anxiety disorder: Status: Chronic (17) Major depressive disorder, recurrent severe without psychotic features: Status: Chronic (18) Hypertension: Status: Chronic Qualifiers: Hypertension type: renovascular hypertension Qualified Code(s): I15.0 - Renovascular hypertension Plan #Extensive cellulitis/severe contact dermatitis #Paronychia finger left hand #Chronically unable to walk, wheelchair-bound #HAGMA - resolved #Acute on chronic hyponatremia - resolved #Hx of Hyperosmolar nonketotic hyperglycemia - resolved #Acute kidney injury #Diabetes mellitus with hyperglycemia #Chronic congestive heart failure with preserved EF #Obstructive sleep apnea #COPD #Atrial fibrillation #Hypertension #Hyperlipidemia #Hypothyroidism #Morbid obesity -Stop vancomycin.? Continue Diflucan.? Continue nystatin. Switch to linezolid to cover MRSA ? Follow-up blood culture. BCx positive for gram positive cocci in clusters, epidermidis, most likely contaminant. ? Case management on board to try to assist with obtaining hospital bed ? Clinically unable to walk. ? Hold Lasix for now. ? Continue IV fluids, insulin ? Apply zinc oxide cream in perineal area ? Benadryl 25 every 6 hours as needed ? Continue aripiprazole, Eliquis ? Dose reduce gabapentin 100 TID for now. - Cr 2.0 today, worsening. Continue gentle hydration 100 cc/hr, Vanc levels high,Stop Vancomycin -Continue metoprolol 25 twice daily, Zoloft ? Hold Bactrim - Apply santyl to areas of abdomen. updated RN. - Hydrocodone for pain control - Bowel regimen - Rash significantly better Full code DVT prophylaxis: [facility] Medical Necessity Statement*: Will need to be setup for placement to custodial Coding Level of Care Code Acute Profile Grinder Technician for [facility] Fwd Diagnoses Hyponatremia E87.1 Cellulitis L03.90 Rash R21 Inability to walk R26.2 Acute paronychia of finger of left hand L03.012 DELMIS (obstructive sleep apnea) G47.33 Atrial fibrillation I48.11 Atrial fibrillation type: longstanding persistent Congestive heart failure I50.9 Heart failure type: unspecified Heart failure chronicity: unspecified COPD (chronic obstructive pulmonary disease) J44.9 COPD type: unspecified COPD CKD (chronic kidney disease) N18.9 Long-term insulin use Z79.4 Hyperlipidemia E78.2 Hyperlipidemia type: mixed hyperlipidemia DWIGHT (acute kidney injury) N17.9 UTI (urinary tract infection) N39.0 Hyperglycemia R73.9 Generalized anxiety disorder F41.1 Major depressive disorder, recurrent severe without psychotic features F33.2 Hypertension I15.0 Hypertension type: renovascular hypertension
[2022-01-30 11:56] LABS: Glucose Point of Care 87 mg/dL (70-110)
[2022-01-30] MEDS: metoprolol tartrate 25 mg Tablet PO (13:22)
[2022-01-30 15:10] VITALS: BP 119/81; PULSE 90; RESP 16; TEMP 36.8; O2SAT 97
[2022-01-30] MEDS: linezolid premix 600 MG/300 ML PREMIX 300 MG IV (17:10)
[2022-01-30 17:16] LABS: Glucose Point of Care 133 mg/dL (70-110)
[2022-01-30 20:00] VITALS: BP 103/63; PULSE 91; RESP 16; TEMP 36.9; O2SAT 98
[2022-01-30 21:36] LABS: Glucose Point of Care 160 mg/dL (70-110)
[2022-01-30] MEDS: insulin lispro 100 unit/1 mL SUBCUT (22:09)
[2022-01-31] VITALS: BP 113/77; PULSE 90; RESP 16; TEMP 36.5; O2SAT 98
[2022-01-31] MEDS: apixaban 5 mg Tablet PO ×2 (01:59→13:23)
[2022-01-31] MEDS: metoprolol tartrate 25 mg Tablet PO ×2 (01:59→13:23)
[2022-01-31] MEDS: sodium chloride 0.9% 1,000 ML 100 ML IV ×2 (02:00→15:12)
[2022-01-31] MEDS: linezolid premix 600 MG/300 ML PREMIX 300 MG IV ×2 (02:01→13:21)
[2022-01-31 04:00] VITALS: BP 108/69; PULSE 82; RESP 16; TEMP 36.4; O2SAT 100
[2022-01-31] MEDS: ARIPiprazole 10 mg Tablet 5 MG PO (05:17)
[2022-01-31] MEDS: levothyroxine 25 mcg Tablet PO (05:19)
[2022-01-31] MEDS: pantoprazole DR 40 mg Tablet PO (05:19)
[2022-01-31] MEDS: gabapentin 100 mg Capsule PO ×3 (05:19→22:27)
[2022-01-31 06:59] LABS: Glucose Point of Care 95 mg/dL (70-110)
[2022-01-31 08:00] VITALS: BP 112/79; PULSE 80; RESP 15; TEMP 36.6; O2SAT 100
[2022-01-31] MEDS: sertraline 50 mg Tablet 150 MG PO (08:48)
[2022-01-31] MEDS: fluconazole 100 mg Tablet 150 MG PO (08:48)
[2022-01-31] MEDS: nystatin cream 30 gm 1 APPLIC TOPICAL ×2 (08:50→22:28)
[2022-01-31] MEDS: cefepime 1,000 MG in sodium chloride 0.9% (plus) 50 ML 100 MG IV (09:03)
--- NOTE | 2022-01-31 10:23 | PC.SOCIAL ---
IMM Update Imm updated with patient, copy of page 2 provided. Patient verbalized understanding. Copy initialed, dated and timed, placed in chart.
[2022-01-31 11:42] LABS: Glucose Point of Care 83 mg/dL (70-110)
[2022-01-31 12:00] VITALS: BP 136/72; PULSE 98; RESP 16; TEMP 36.7; O2SAT 93
--- NOTE | 2022-01-31 13:09 | PM.PN ---
Subjective Subjective: seen this AM. Patient has not worked with physical therapy yet. No acute events overnight Today's labs are pending Rash is improving and pt is feeling better overall. She is interested in long term placement. Vitals/I&O/Wt Last Vital Signs Temp 97.8 F 01/31/22 08:00 Pulse 80 01/31/22 08:00 Resp 15 01/31/22 08:00 BP 112/79 01/31/22 08:00 Pulse Ox 100 01/31/22 08:00 01/30/22 01/31/22 01/31/22 22:59 06:59 14:59 Intake Total 1540 / 1830 360 / 2190 Balance 1540 / 1830 360 / 2190 Weight last 48 hrs Weight 147.962 kg Physical Exam Narrative: General: Alert oriented x3, patient seen laying in bed appearing comfortable. HEENT: Normocephalic, atraumatic, EOMI, breathing 2 L nasal cannula appearing comfortable, laying almost flat, no shortness of breath. Cardio: Regular rate rhythm, normal S1-S2, no murmurs Respiratory: Clear to auscultation bilaterally GI: Abdomen soft, nontender, nondistended, bowel sounds +, obese large rounded abdomen Extremities:No Le edema b/l Signfinicant improvement in rash on leg, abdomen pannus area. Urinary Catheter Management: Casiano: Cath Placed During This Visit: yes, but has since been removed by the nurse Reason for Continuing Indwelling Catheter: Decision to DC Catheter Urinary Catheter Date of Insertion: 01/27/22 Urinary Catheter Time of Insertion: 11:30 Date Urinary Catheter Removed: 01/29/22 Time Urinary Catheter Discontinued: 14:41 Data : 01/30/22 04:36 01/30/22 04:36 Micro: Microbiology 01/26/22 23:20 Blood Culture - Final Blood Staphylococcus sp coag neg A&P Assessment and plan (1) Hyponatremia: Status: Acute (2) Paronychia of finger of left hand: Status: Acute (3) Cellulitis: Status: Acute (4) Rash: Status: Acute (5) Inability to walk: Status: Acute (6) Arthralgia: Status: Acute (7) Morbid obesity: Status: Acute (8) Obesity with alveolar hypoventilation: Status: Acute Qualifiers: Obesity classification: adult class 3 (BMI >= 40) Serious obesity comorbidity presence: with serious comorbidity Body mass index: BMI 50.0-59.9 Qualified Code(s): E66.2 - Morbid (severe) obesity with alveolar hypoventilation; Z68.43 - Body mass index [BMI] 50.0-59.9, adult (9) DELMIS (obstructive sleep apnea): Status: Acute (10) Oxygen dependent: Status: Acute (11) Atrial fibrillation: Status: Acute Qualifiers: Atrial fibrillation type: longstanding persistent Qualified Code(s): I48.11 - Longstanding persistent atrial fibrillation (12) Congestive heart failure: Status: Acute Qualifiers: Heart failure type: unspecified Heart failure chronicity: unspecified Qualified Code(s): I50.9 - Heart failure, unspecified (13) COPD (chronic obstructive pulmonary disease): Status: Acute Qualifiers: COPD type: unspecified COPD Qualified Code(s): J44.9 - Chronic obstructive pulmonary disease, unspecified (14) Hyperglycemia: Status: Acute (15) ADA (acute kidney injury): Status: Acute (16) Hypertension: Status: Chronic Qualifiers: Hypertension type: renovascular hypertension Qualified Code(s): I15.0 - Renovascular hypertension (17) Major depressive disorder, recurrent severe without psychotic features: Status: Chronic (18) Generalized anxiety disorder: Status: Chronic (19) 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 (20) History of noncompliance with medical treatment: Status: Chronic Plan #Extensive cellulitis/severe contact dermatitis #Paronychia finger left hand #Chronically unable to walk, wheelchair-bound #HAGMA - resolved #Acute on chronic hyponatremia - resolved #Hx of Hyperosmolar nonketotic hyperglycemia - resolved #Acute kidney injury #Diabetes mellitus with hyperglycemia #Chronic congestive heart failure with preserved EF #Obstructive sleep apnea #COPD #Atrial fibrillation #Hypertension #Hyperlipidemia #Hypothyroidism #Morbid obesity #Possible scabies #Hx of non-compliance to medical treatment -Stop vancomycin.? Continue Diflucan.? Continue nystatin. Switch to linezolid to cover MRSA ? Follow-up blood culture. BCx positive for gram positive cocci in clusters, epidermidis, most likely contaminant. ? Case management on board to try to assist with obtaining hospital bed ? Clinically unable to walk. ? Hold Lasix for now. ? Continue IV fluids, insulin ? Apply zinc oxide cream in perineal area ? Continue aripiprazole, Eliquis ? Dose reduce gabapentin 100 TID for now. - Cr 2.0 01/31, labs pending today/ Vanc was stopped 01/29.Continue gentle hydration 100 cc/hr -Continue metoprolol 25 twice daily, Zoloft ? Hold Bactrim - Apply santyl to areas of abdomen. updated RN. - Hydrocodone for pain control - Bowel regimen - Rash significantly better. - Treated by permethrin for scabies lesions. Full code DVT prophylaxis: [facility] Medical Necessity Statement*: Will need to be se tup for placement to long term needs continued hospitalization for management of cellulitis and [place]. Coding Level of Care Code Acute Informatics Consultant for [employer] Fwd Diagnoses Hyponatremia E87.1 Paronychia of finger of left hand L03.012 Cellulitis L03.90 Rash R21 Inability to walk R26.2 Arthralgia M25.50 Morbid obesity E66.01 Obesity with alveolar hypoventilation E66.2; Z68.43 Obesity classification: adult class 3 (BMI >= 40) Serious obesity comorbidity presence: with serious comorbidity Body mass index: BMI 50.0-59.9 DELMIS (obstructive sleep apnea) G47.33 Oxygen dependent Z99.81 Atrial fibrillation I48.11 Atrial fibrillation type: longstanding persistent Congestive heart failure I50.9 Heart failure type: unspecified Heart failure chronicity: unspecified COPD (chronic obstructive pulmonary disease) J44.9 COPD type: unspecified COPD Hyperglycemia R73.9 ADA (acute kidney injury) N17.9 Hypertension I15.0 Hypertension type: renovascular hypertension Major depressive disorder, recurrent severe without psychotic features F33.2 Generalized anxiety disorder F41.1 Hoarding disorder with excessive acquisition F42.3 History of noncompliance with medical treatment Z91.19
[2022-01-31 14:24] LABS: Blood Urea Nitrogen 32 mg/dL (6-20); Calcium 8.5 mg/dL (8.5-10.5); Carbon Dioxide 18 mmol/L (22-29); Chloride 105 mmol/L (98-107); Glomerular Filtration Rate 35.9 mL/min (90-130); Glucose 104 mg/dL (65-115); Osmolality Calculated 287 mOsm/kg (285-295); Sodium 135 mmol/L (136-145)
[2022-01-31 14:32] LABS: Anion Gap 16.3 (5-19); Potassium 4.3 mmol/L (3.5-5.1)
--- NOTE | 2022-01-31 14:47 | PC.NURSE ---
order for bladder scan and straight cath obtained.unable to locate bladder scanner despite exhaustive search of all hospital units.dr chaney notified.she ordered to just straight cath pt.performed as ordered.450 cc clear,pale yellow urine obtained.pt had been incontinent prior to procedure.
--- NOTE | 2022-01-31 15:07 | PC.NURSE ---
pt is incontinent of urine.states that staff has told her to use bedban.dr chaney states pt needs to get up to bedside commode.pt states she cant .instructed that pt needs to move about and get out out of bed to help rebuild strength.pt states i cant..[facility]. instructed to not lay on left side any further due to skin breakdown.bed bath given and linens changed.repositioned on right side
[2022-01-31 16:00] VITALS: BP 125/78; PULSE 92; RESP 16; TEMP 36.8; O2SAT 98
[2022-01-31 17:00] LABS: Glucose Point of Care 114 mg/dL (70-110)
[2022-01-31 20:00] VITALS: BP 126/83; PULSE 70; RESP 17; TEMP 36.7; O2SAT 99
[2022-01-31 20:52] LABS: Glucose Point of Care 109 mg/dL (70-110)
[2022-01-31 22:04] LABS: Specific Gravity, Urine 1.015 (1.005-1.030); Urine Appearance SL Hazy (CLEAR); Urine Color Yellow (Yellow); pH Urine 5 (5-7)
[2022-01-31 22:05] LABS: Add Urine Microscopic? YES; Bilirubin Urine Neg (Negative); Blood Urine 3+ (Negative); Glucose Urine UA Trace (Normal); Ketones Urine Negative (Negative); Leukocyte Esterase Urine 2+ (Negative); Nitrate Urine Negative (Negative); Protein Urine Trace (Negative); RBC Urine 25-40 /hpf (0-2); Urobilinogen Urine Neg (Negative)
[2022-01-31 22:06] LABS: Add Urine Culture? No; Bacteria Urine TRACE /hpf; Coarse Granular Casts Urine 0-4 /lpf; Mucus Urine TRACE /hpf; Squamous Epithelial Cell Urine 15-25 /hpf (0-5)
[2022-01-31] MEDS: acetaminophen 325 mg Tablet 650 MG PO (22:26)
[2022-01-31] MEDS: collagenase oint 30 gm 1 APPLIC TOPICAL (22:27)
[2022-02-01] VITALS: BP 133/92; PULSE 84; RESP 18; TEMP 36.8; O2SAT 99
[2022-02-01] MEDS: linezolid premix 600 MG/300 ML PREMIX 300 MG IV (01:03)
[2022-02-01] MEDS: metoprolol tartrate 25 mg Tablet PO ×2 (01:04→14:42)
[2022-02-01] MEDS: apixaban 5 mg Tablet PO ×2 (01:04→14:42)
[2022-02-01] MEDS: sodium chloride 0.9% 1,000 ML 100 ML IV ×2 (02:32→14:42)
[2022-02-01 04:00] VITALS: BP 105/69; PULSE 72; RESP 19; TEMP 36.6; O2SAT 98
[2022-02-01 04:40] LABS: Basophils % 0.5 %; Eosinophils # 0.3 10^3/uL (0.0-0.8); Hematocrit 36.6 % (37.0-47.0); Hemoglobin 11.1 g/dL (11.5-15.3); Lymphocytes # 1.3 10^3/uL (0.8-4.8); Lymphocytes % 16.8 %; Mean Corpuscular HGB Conc 30.3 g/dL (30.0-36.0); Mean Corpuscular Hemoglobin 27.8 pg (28.0-34.0); Mean Corpuscular Volume 91.5 fl (81-99); Monocytes # 0.5 10^3/uL (0.2-0.9); Monocytes % 6.3 %; Neutrophils # 5.22 10^3/uL (1.8-7.7); Neutrophils % 70.5 %; Nucleated Red Blood Cells % 0 %; Platelet Count 318 10^3/cmm (130-400); Red Cell Distribution Width 13.7 % (12.1-15.1); White Blood Count 7.4 10^3/uL (4.0-10.0)
[2022-02-01 05:12] LABS: Anion Gap 15.9 (5-19); Blood Urea Nitrogen 31 mg/dL (6-20); Calcium 8.7 mg/dL (8.5-10.5); Carbon Dioxide 20 mmol/L (22-29); Chloride 107 mmol/L (98-107); Glomerular Filtration Rate 35.9 mL/min (90-130); Glucose 101 mg/dL (65-115); Magnesium 2.3 mg/dL (1.7-2.3); Osmolality Calculated 295 mOsm/kg (285-295); Potassium 3.9 mmol/L (3.5-5.1); Sodium 139 mmol/L (136-145)
[2022-02-01] MEDS: pantoprazole DR 40 mg Tablet PO (05:23)
[2022-02-01] MEDS: gabapentin 100 mg Capsule PO ×3 (05:23→20:41)
[2022-02-01] MEDS: levothyroxine 25 mcg Tablet PO (05:23)
[2022-02-01] MEDS: ARIPiprazole 10 mg Tablet 5 MG PO (05:23)
[2022-02-01] MEDS: acetaminophen 325 mg Tablet 650 MG PO ×3 (05:56→21:34)
[2022-02-01 06:12] LABS: Glucose Point of Care 104 mg/dL (70-110)
[2022-02-01 08:00] VITALS: BP 120/73; PULSE 79; RESP 15; TEMP 36.6; O2SAT 95
[2022-02-01] MEDS: cefepime 1,000 MG in sodium chloride 0.9% (plus) 50 ML 100 MG IV (09:38)
[2022-02-01] MEDS: nystatin cream 30 gm 1 APPLIC TOPICAL ×2 (09:39→20:43)
[2022-02-01] MEDS: fluconazole 100 mg Tablet 150 MG PO (09:40)
[2022-02-01] MEDS: sertraline 50 mg Tablet 150 MG PO (09:40)
[2022-02-01] MEDS: collagenase oint 30 gm 1 APPLIC TOPICAL (09:40)
[2022-02-01 11:09] LABS: Glucose Point of Care 97 mg/dL (70-110)
[2022-02-01 11:28] VITALS: BP 124/85; PULSE 89; RESP 16; TEMP 36.6; O2SAT 98
--- NOTE | 2022-02-01 13:19 | P.PN_ITS ---
Subjective Subjective: Seen this morning. She states she was evicted from her property by [facility]. She states her still lives there but she is not allowed to return there at this time. She states that they came in and took away all her belongings and threw them away in trash bags. He states he does not have a choice anymore but has to go to a shelter. She would like to be discussed all this with case management. She says she has told a few people about this but unsure if she has told case management yet. Overall however the rash is improving and she feels better. Shortness of breath is not present. Denies any chest pain. Creatinine improved 1.5. Vitals/I&O/Wt Last Vital Signs Temp 97.8 F 02/01/22 11:28 Pulse 89 02/01/22 11:28 Resp 16 02/01/22 11:28 BP 124/85 02/01/22 11:28 Pulse Ox 98 02/01/22 11:28 01/31/22 02/01/22 02/01/22 22:59 06:59 14:59 Intake Total 1690 / 3280 2100 / 5380 350 / 350 Output Total 600 / 600 800 / 1400 Balance 1090 / 2680 1300 / 3980 350 / 350 Weight last 48 hrs Weight 148.007 kg Physical Exam Narrative: General: Alert oriented x3, patient seen laying in bed appearing comfortable. HEENT: Normocephalic, atraumatic, EOMI, breathing 2 L nasal cannula appearing comfortable, laying almost flat, no shortness of breath. Cardio: Regular rate rhythm, normal S1-S2, no murmurs Respiratory: Clear to auscultation bilaterally GI: Abdomen soft, nontender, nondistended, bowel sounds +, obese large rounded abdomen Extremities:No Le edema b/l Signfinicant improvement in rash on leg, abdomen pannus area. Urinary Catheter Management: Casiano: Cath Placed During This Visit: yes, but has since been removed by the nurse Reason for Continuing Indwelling Catheter: Decision to DC Catheter Urinary Catheter Date of Insertion: 01/27/22 Urinary Catheter Time of Insertion: 11:30 Date Urinary Catheter Removed: 01/29/22 Time Urinary Catheter Discontinued: 14:41 Data : 02/01/22 03:30 02/01/22 03:30 Micro: Microbiology 01/27/22 17:32 Urine Culture - Final Urine Catheterized Afshan krusei A&P Assessment and plan (1) Hyponatremia: Status: Acute (2) Cellulitis: Status: Acute (3) Rash: Status: Acute (4) Inability to walk: Status: Acute (5) Arthralgia: Status: Acute (6) DELMIS (obstructive sleep apnea): Status: Acute (7) Obesity with alveolar hypoventilation: Status: Acute Qualifiers: Obesity classification: adult class 3 (BMI >= 40) Serious obesity comorbidity presence: with serious comorbidity Body mass index: BMI 50.0-59.9 Qualified Code(s): E66.2 - Morbid (severe) obesity with alveolar hypoventilation; Z68.43 - Body mass index [BMI] 50.0-59.9, adult (8) Oxygen dependent: Status: Acute (9) Atrial fibrillation: Status: Acute Qualifiers: Atrial fibrillation type: longstanding persistent Qualified Code(s): I48.11 - Longstanding persistent atrial fibrillation (10) Congestive heart failure: Status: Acute Qualifiers: Heart failure type: unspecified Heart failure chronicity: unspecified Qualified Code(s): I50.9 - Heart failure, unspecified (11) COPD (chronic obstructive pulmonary disease): Status: Acute Qualifiers: COPD type: unspecified COPD Qualified Code(s): J44.9 - Chronic obstructive pulmonary disease, unspecified (12) CKD (chronic kidney disease): Status: Acute (13) Hyperlipidemia: Status: Acute Qualifiers: Hyperlipidemia type: mixed hyperlipidemia Qualified Code(s): E78.2 - Mixed hyperlipidemia (14) DWIGHT (acute kidney injury): Status: Acute (15) UTI (urinary tract infection): Status: Acute (16) Hypertension: Status: Chronic Qualifiers: Hypertension type: renovascular hypertension Qualified Code(s): I15.0 - Renovascular hypertension (17) Major depressive disorder, recurrent severe without psychotic features: Status: Chronic (18) Generalized anxiety disorder: Status: Chronic (19) 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 (20) History of noncompliance with medical treatment: Status: Chronic Plan #Extensive cellulitis/severe contact dermatitis #Paronychia finger left hand #Chronically unable to walk, wheelchair-bound #HAGMA - resolved #Acute on chronic hyponatremia - resolved #Hx of Hyperosmolar nonketotic hyperglycemia - resolved #Acute kidney injury #Diabetes mellitus with hyperglycemia #Chronic congestive heart failure with preserved EF #Obstructive sleep apnea #COPD #Atrial fibrillation #Hypertension #Hyperlipidemia #Hypothyroidism #Morbid obesity #Possible scabies #Hx of non-compliance to medical treatment -Stop linezolid. Stop cefepime. I will switch to Augmentin and doxycycline at this time. ? Follow-up blood culture. BCx positive for gram positive cocci in clusters, epidermidis, most likely contaminant. ? Case management on board to try to assist with obtaining hospital bed ? Clinically unable to walk. ?Stop IV fluids. Continue to hold Lasix for today. ? Creatinine improving. 1.5 today. Seems to be now at baseline. ? Apply zinc oxide cream in perineal area ? Continue aripiprazole, Eliquis ?Continue gabapentin 100 TID for now. - -Continue metoprolol 25 twice daily, Zoloft ? Hold Bactrim - Apply santyl to areas of abdomen. updated RN. - Hydrocodone for pain control - Bowel regimen - Rash significantly better. - Treated by permethrin for scabies lesions. -Urine culture positive for Afshan Krusei. Patient had significant rash on admission and was also incontinent. I suspect the sample was contaminated. She has been covered with Diflucan at this time. However we will repeat urine sample with straight cath and treat according to that. Disposition: Patient may be able to go home on oral Augmentin and doxycycline. DWIGHT has improved and rash has improved as well. However placement will need to be set up as she cannot go home anymore since she was infected. Case management updated regarding this. They will work on placement. Full code DVT prophylaxis: Laith Attestations Medical Necessity Statement*: Will need continued hospitalization to rule out UTI. Placement will need to be set up. She was evicted from her property. 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 [facility] Fwd Diagnoses Hyponatremia E87.1 Cellulitis L03.90 Rash R21 Inability to walk R26.2 Arthralgia M25.50 DELMIS (obstructive sleep apnea) G47.33 Obesity with alveolar hypoventilation E66.2; Z68.43 Obesity classification: adult class 3 (BMI >= 40) Serious obesity comorbidity presence: with serious comorbidity Body mass index: BMI 50.0-59.9 Oxygen dependent Z99.81 Atrial fibrillation I48.11 Atrial fibrillation type: longstanding persistent Congestive heart failure I50.9 Heart failure type: unspecified Heart failure chronicity: unspecified COPD (chronic obstructive pulmonary disease) J44.9 COPD type: unspecified COPD CKD (chronic kidney disease) N18.9 Hyperlipidemia E78.2 Hyperlipidemia type: mixed hyperlipidemia DWIGHT (acute kidney injury) N17.9 UTI (urinary tract infection) N39.0 Hypertension I15.0 Hypertension type: renovascular hypertension Major depressive disorder, recurrent severe without psychotic features F33.2 Generalized anxiety disorder F41.1 Hoarding disorder with excessive acquisition F42.3 History of noncompliance with medical treatment Z91.19
[2022-02-01 15:47] VITALS: BP 136/79; PULSE 85; RESP 18; TEMP 36.8; O2SAT 97
[2022-02-01 17:18] LABS: Glucose Point of Care 145 mg/dL (70-110)
[2022-02-01] MEDS: amoxicillin-clav 875-125 mg Tablet 1 TAB PO (18:46)
[2022-02-01 20:00] VITALS: BP 156/99; PULSE 91; RESP 18; TEMP 36.8; O2SAT 98
[2022-02-01 22:02] LABS: Glucose Point of Care 162 mg/dL (70-110)
[2022-02-01] MEDS: insulin lispro 100 unit/1 mL SUBCUT (22:06)
[2022-02-02] VITALS (7 sets, daily range): BP systolic 131–170; BP diastolic 83–96; PULSE 76–103; RESP 16–20; TEMP 36.4–37.2; O2SAT 92–100
[2022-02-02] MEDS: metoprolol tartrate 25 mg Tablet PO ×2 (01:03→14:17)
[2022-02-02] MEDS: apixaban 5 mg Tablet PO ×2 (01:03→14:17)
[2022-02-02] MEDS: acetaminophen 325 mg Tablet 650 MG PO (04:01)
[2022-02-02] MEDS: ARIPiprazole 10 mg Tablet 5 MG PO (05:05)
[2022-02-02] MEDS: levothyroxine 25 mcg Tablet PO (05:05)
[2022-02-02] MEDS: gabapentin 100 mg Capsule PO ×3 (05:05→20:42)
[2022-02-02] MEDS: pantoprazole DR 40 mg Tablet PO (05:07)
[2022-02-02 05:34] LABS: Basophils # 0.1 10^3/uL (0.0-0.1); Basophils % 0.7 %; Eosinophils # 0.3 10^3/uL (0.0-0.8); Eosinophils % 3.5 %; Hematocrit 34.9 % (37.0-47.0); Hemoglobin 11.6 g/dL (11.5-15.3); Lymphocytes % 12.3 %; Mean Corpuscular HGB Conc 33.2 g/dL (30.0-36.0); Mean Corpuscular Hemoglobin 28.3 pg (28.0-34.0); Mean Corpuscular Volume 85.1 fl (81-99); Mean Platelet Volume 10.1 fL (7.4-10.4); Monocytes # 0.5 10^3/uL (0.2-0.9); Monocytes % 5.5 %; Neutrophils # 6.22 10^3/uL (1.8-7.7); Neutrophils % 75.7 %; Nucleated Red Blood Cells % 0 %; Platelet Count 318 10^3/cmm (130-400); Red Cell Distribution Width 13.5 % (12.1-15.1); White Blood Count 8.2 10^3/uL (4.0-10.0)
[2022-02-02 05:55] LABS: Anion Gap 14.4 (5-19); Blood Urea Nitrogen 27 mg/dL (6-20); Calcium 8.9 mg/dL (8.5-10.5); Carbon Dioxide 20 mmol/L (22-29); Chloride 107 mmol/L (98-107); Glomerular Filtration Rate 42.4 mL/min (90-130); Glucose 152 mg/dL (65-115); Osmolality Calculated 292 mOsm/kg (285-295); Potassium 4.4 mmol/L (3.5-5.1); Sodium 137 mmol/L (136-145)
[2022-02-02 06:44] LABS: Glucose Point of Care 159 mg/dL (70-110)
[2022-02-02] MEDS: insulin lispro 100 unit/1 mL SUBCUT ×2 (08:52→21:36)
[2022-02-02] MEDS: sertraline 50 mg Tablet 150 MG PO (08:53)
[2022-02-02] MEDS: fluconazole 100 mg Tablet 150 MG PO (08:53)
[2022-02-02] MEDS: amoxicillin-clav 875-125 mg Tablet 1 TAB PO ×2 (08:53→18:18)
[2022-02-02] MEDS: nystatin cream 30 gm 1 APPLIC TOPICAL ×2 (08:58→20:42)
[2022-02-02] MEDS: collagenase oint 30 gm 1 APPLIC TOPICAL (08:59)
--- NOTE | 2022-02-02 09:16 | PC.SOCIAL ---
IMM Update Imm updated with patient, copy of page 2 provided. Patient verbalized understanding. Copy initialed, dated and timed, placed in chart.
[2022-02-02 11:28] LABS: Glucose Point of Care 130 mg/dL (70-110)
--- NOTE | 2022-02-02 12:51 | PM.PN ---
Subjective Subjective: Patient was seen this morning, she did feel well this morning, her back is hurting her, her sides hurting her, where she fell, and where she will resting for a long period of time, she tells me that she lives at home with her , but she has been affected by her it has not, both her and her are wheelchair-bound, she does not walk, has not walked for over 2 to 3 years, she typically transfers with assistance from her , Vitals/I&O/Wt Last Vital Signs Temp 97.6 F 02/02/22 08:00 Pulse 80 02/02/22 08:00 Resp 16 02/02/22 08:00 BP 131/89 02/02/22 08:00 Pulse Ox 92 02/02/22 08:00 02/01/22 02/02/22 02/02/22 22:59 06:59 14:59 Intake Total 240 / 1710 240 / 1950 1120 / 1120 Balance 240 / 1710 240 / 1950 1120 / 1120 Weight last 48 hrs Weight 146.692 kg Weight 148.007 kg Physical Exam Const: COMMON NORMALS: no acute distress and patient oriented x3 Resp: COMMON NORMALS: normal respiratory effort, No retractions, No use of accessory muscles and clear to auscultation bilaterally AUSCULTATION: clear to auscultation bilaterally Cardio: COMMON NORMALS: regular rate, regular rhythm, S1 normal heart sound present and S2 normal heart sound present RATE: regular rate RHYTHM: regular rhythm HEART SOUNDS: S1 normal heart sound present and S2 normal heart sound present GI: COMMON NORMALS: Normal to inspection, nondistended, normoactive bowel sounds present, Soft to palpation, non-tender and No hepatosplenomegaly present PALPATION: Yes Soft to palpation and Yes No hepatosplenomegaly present Extremity: COMMON NORMALS: no pedal edema Neuro: COMMON NORMALS: patient oriented x3 Psych: COMMON NORMALS: mental status grossly normal Skin: NARRATIVE SKIN EXAM: Area of cellulitis, or arms, legs, abdomen, pannus area, within marked area Urinary Catheter Management: Casiano: Cath Placed During This Visit: yes, but has since been removed by the nurse Reason for Continuing Indwelling Catheter: Decision to DC Catheter Urinary Catheter Date of Insertion: 01/27/22 Urinary Catheter Time of Insertion: 11:30 Date Urinary Catheter Removed: 01/29/22 Time Urinary Catheter Discontinued: 14:41 Data : 02/02/22 05:26 02/02/22 05:26 A&P Assessment and plan (1) Hyponatremia: Status: Acute (2) Cellulitis: Status: Acute (3) Rash: Status: Acute (4) Inability to walk: Status: Acute (5) Arthralgia: Status: Acute (6) DELMIS (obstructive sleep apnea): Status: Acute (7) Obesity with alveolar hypoventilation: Status: Acute Qualifiers: Obesity classification: adult class 3 (BMI >= 40) Serious obesity comorbidity presence: with serious comorbidity Body mass index: BMI 50.0-59.9 Qualified Code(s): E66.2 - Morbid (severe) obesity with alveolar hypoventilation; Z68.43 - Body mass index [BMI] 50.0-59.9, adult (8) Oxygen dependent: Status: Acute (9) Atrial fibrillation: Status: Acute Qualifiers: Atrial fibrillation type: longstanding persistent Qualified Code(s): I48.11 - Longstanding persistent atrial fibrillation (10) Congestive heart failure: Status: Acute Qualifiers: Heart failure type: unspecified Heart failure chronicity: unspecified Qualified Code(s): I50.9 - Heart failure, unspecified (11) COPD (chronic obstructive pulmonary disease): Status: Acute Qualifiers: COPD type: unspecified COPD Qualified Code(s): J44.9 - Chronic obstructive pulmonary disease, unspecified (12) CKD (chronic kidney disease): Status: Acute (13) Hyperlipidemia: Status: Acute Qualifiers: Hyperlipidemia type: mixed hyperlipidemia Qualified Code(s): E78.2 - Mixed hyperlipidemia (14) DWIGHT (acute kidney injury): Status: Acute (15) UTI (urinary tract infection): Status: Acute (16) Hypertension: Status: Chronic Qualifiers: Hypertension type: renovascular hypertension Qualified Code(s): I15.0 - Renovascular hypertension (17) Major depressive disorder, recurrent severe without psychotic features: Status: Chronic (18) Generalized anxiety disorder: Status: Chronic (19) 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 (20) History of noncompliance with medical treatment: Status: Chronic Plan #Extensive cellulitis/severe contact dermatitis #Paronychia finger left hand #Chronically unable to walk, wheelchair-bound #HAGMA - resolved #Acute on chronic hyponatremia - resolved #Hx of Hyperosmolar nonketotic hyperglycemia - resolved #Acute kidney injury #Diabetes mellitus with hyperglycemia #Chronic congestive heart failure with preserved EF #Obstructive sleep apnea #COPD #Atrial fibrillation #Hypertension #Hyperlipidemia #Hypothyroidism #Morbid obesity #Possible scabies #Hx of non-compliance to medical treatment -Continue Augmentin, doxycycline ? Follow-up blood culture. BCx positive for gram positive cocci in clusters, epidermidis, most likely contaminant. Repeat blood cultures ? Case management on board to try to assist with obtaining hospital bed ? Clinically unable to walk. Will require long-term placement ? On Lasix, ? Creatinine 1.3, hold Lasix, resume likely tomorrow ? Apply zinc oxide cream in perineal area ? Continue aripiprazole, Eliquis ?Continue gabapentin 100 TID for now. - -Continue metoprolol 25 twice daily, Zoloft - Apply santyl to areas of abdomen. updated RN. - Hydrocodone for pain control - Bowel regimen - Rash significantly better. - Treated by permethrin for scabies lesions. -Urine culture positive for Afshan Krusei. Patient had significant rash on admission and was also incontinent. I suspect the sample was contaminated. She has been covered with Diflucan at this time. However we will repeat urine sample with straight cath and treat according to that. 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 Instructor for [facility] Diagnoses Hyponatremia E87.1 Cellulitis L03.90 Rash R21 Inability to walk R26.2 Arthralgia M25.50 DELMIS (obstructive sleep apnea) G47.33 Obesity with alveolar hypoventilation E66.2; Z68.43 Obesity classification: adult class 3 (BMI >= 40) Serious obesity comorbidity presence: with serious comorbidity Body mass index: BMI 50.0-59.9 Oxygen dependent Z99.81 Atrial fibrillation I48.11 Atrial fibrillation type: longstanding persistent Congestive heart failure I50.9 Heart failure type: unspecified Heart failure chronicity: unspecified COPD (chronic obstructive pulmonary disease) J44.9 COPD type: unspecified COPD CKD (chronic kidney disease) N18.9 Hyperlipidemia E78.2 Hyperlipidemia type: mixed hyperlipidemia DWIGHT (acute kidney injury) N17.9 UTI (urinary tract infection) N39.0 Hypertension I15.0 Hypertension type: renovascular hypertension Major depressive disorder, recurrent severe without psychotic features F33.2 Generalized anxiety disorder F41.1 Hoarding disorder with excessive acquisition F42.3 History of noncompliance with medical treatment Z91.19
[2022-02-02 17:09] LABS: Glucose Point of Care 139 mg/dL (70-110)
[2022-02-02 17:31] LABS: SARS Covid-2 Antigen Negative (Negative)
[2022-02-02] MEDS: HYDROcodone-acetaminophen 10-325 mg Tablet 1 TAB PO (20:41)
--- NOTE | 2022-02-02 21:14 | ECG_ITS ---
[facility] Test Date: 2022-02-02 Pat Name: Ana Lilia Miller Department: Room: 264 Gender: Female Anesthesia Assistant: : 1965 Requested By: Alisa Metzger Order Number: [id number] Glen MD: Renee Gutierrez M.D. Measurements Intervals Meally Rate: 97 P: GA: QRS: 135 QRSD: 87 T: 15 QT: 354 QTc: 451 Interpretive Statements ATRIAL FIBRILLATION POSSIBLE RIGHT VENTRICULAR HYPERTROPHY [SOME/ALL OF: PROMINENT R IN V1, LATE TRANSITION, RAD, NJ, SSS] POSSIBLE ANTERIOR MYOCARDIAL INFARCTION , PROBABLY OLD [30 ms Q WAVE IN V3/V4, OR R < 0.2 mV IN V4] Compared to ECG 05/27/2021 12:50:20 No significant changes Electronically Signed On 02-03-2022 12:09:06 CDT by Renee Gutierrez M.D. [email or web address]
--- NOTE | 2022-02-02 21:24 | XRR_ITS ---
PROCEDURE INFORMATION: Exam: XR Chest Exam date and time: 02/02/2022 9:28 PM Age: 56 years old Clinical indication: Angina; Additional info: Chest pain TECHNIQUE: Imaging protocol: Radiologic exam of the chest. Views: 1 view. COMPARISON: CR XR chest 1V portable [id number] 05/27/2021 12:25 PM FINDINGS: Lungs: Cardiac silhouette size, and vascularity are somewhat accentuated, likely related to poor inspiration/expansion however clinical correlation for mild CHF should be obtained. Upper lungs are clear. New ill-defined right perihilar and right medial basilar opacity suspicious for pneumonia. Dependent edema may also be considered. Lateral left basilar opacities likely related to prominent epicardial fat as noted on recent CT exam. Pleural spaces: Unremarkable. No pleural effusion. No pneumothorax. Heart/Mediastinum: As above. Bones/joints: No acute osseous findings. Other findings: Single view was submitted. XR/XR chest 1V portable [id number] IMPRESSION: 1. Accentuated cardiac silhouette size and vascularity. See discussion above. 2. New right perihilar/medial basilar opacity. See discussion above. Clinical correlation and follow-up should be obtained.
[2022-02-02 21:31] LABS: Glucose Point of Care 167 mg/dL (70-110)
[2022-02-03] VITALS: BP 158/97; PULSE 112; RESP 16; TEMP 36.7; O2SAT 98
[2022-02-03] MEDS: apixaban 5 mg Tablet PO ×2 (01:21→13:12)
[2022-02-03] MEDS: metoprolol tartrate 25 mg Tablet PO ×2 (01:21→13:12)
[2022-02-03 04:00] VITALS: BP 142/84; PULSE 116; RESP 16; TEMP 36.3; O2SAT 97
[2022-02-03] MEDS: HYDROcodone-acetaminophen 10-325 mg Tablet 1 TAB PO ×2 (05:08→13:17)
[2022-02-03] MEDS: levothyroxine 25 mcg Tablet PO (05:08)
[2022-02-03] MEDS: ARIPiprazole 10 mg Tablet 5 MG PO (05:08)
[2022-02-03] MEDS: pantoprazole DR 40 mg Tablet PO (05:08)
[2022-02-03] MEDS: gabapentin 100 mg Capsule PO ×2 (05:08→13:11)
[2022-02-03 06:30] LABS: Glucose Point of Care 146 mg/dL (70-110)
[2022-02-03 08:00] VITALS: BP 145/85; PULSE 78; RESP 16; TEMP 36.4; O2SAT 97
[2022-02-03 09:19] LABS: Basophils % 0.5 %; Eosinophils # 0.2 10^3/uL (0.0-0.8); Eosinophils % 2.7 %; Hematocrit 32.5 % (37.0-47.0); Hemoglobin 10.8 g/dL (11.5-15.3); Lymphocytes % 13.2 %; Mean Corpuscular HGB Conc 33.2 g/dL (30.0-36.0); Mean Corpuscular Hemoglobin 28.3 pg (28.0-34.0); Mean Corpuscular Volume 85.3 fl (81-99); Mean Platelet Volume 10.3 fL (7.4-10.4); Monocytes # 0.4 10^3/uL (0.2-0.9); Monocytes % 5.6 %; Neutrophils # 5.68 10^3/uL (1.8-7.7); Neutrophils % 75.7 %; Nucleated Red Blood Cells % 0 %; Platelet Count 295 10^3/cmm (130-400); Red Blood Count 3.81 10^6/uL (4.1-5.3); Red Cell Distribution Width 13.4 % (12.1-15.1); White Blood Count 7.5 10^3/uL (4.0-10.0)
[2022-02-03 09:25] LABS: Alanine Aminotransferase 20 U/L (0-33); Albumin Level 2.8 g/dL (3.5-5.2); Alkaline Phosphatase 282 IU/L (35-105); Anion Gap 14.4 (5-19); Aspartate Amino Transferase 14 U/L (0-32); Blood Urea Nitrogen 21 mg/dL (6-20); Carbon Dioxide 22 mmol/L (22-29); Chloride 103 mmol/L (98-107); Globulin 3.1 g/dL (1.3-4.6); Glomerular Filtration Rate 51.4 mL/min (90-130); Glucose 136 mg/dL (65-115); Magnesium 1.9 mg/dL (1.7-2.3); Osmolality Calculated 285 mOsm/kg (285-295); Phosphorus 3.6 mg/dL (2.5-4.5); Potassium 4.4 mmol/L (3.5-5.1); Sodium 135 mmol/L (136-145); Total Bilirubin 0.5 mg/dL (0.15-1.2); Total Protein 5.9 g/dL (6.6-8.7)
[2022-02-03] MEDS: insulin lispro 100 unit/1 mL SUBCUT (10:09)
[2022-02-03] MEDS: FUROsemide 40 mg Tablet PO (10:09)
[2022-02-03] MEDS: fluconazole 100 mg Tablet 150 MG PO (10:10)
[2022-02-03] MEDS: amoxicillin-clav 875-125 mg Tablet 1 TAB PO (10:10)
[2022-02-03] MEDS: sertraline 50 mg Tablet 150 MG PO (10:11)
[2022-02-03] MEDS: nystatin cream 30 gm 1 APPLIC TOPICAL (10:11)
[2022-02-03] MEDS: collagenase oint 30 gm 1 APPLIC TOPICAL (10:12)
[2022-02-03 10:51] LABS: Glucose Point of Care 142 mg/dL (70-110)
[2022-02-03 12:00] VITALS: BP 145/84; PULSE 92; RESP 17; TEMP 36.6; O2SAT 98
--- NOTE | 2022-02-03 13:44 | P.DS_ITS ---
Discharge Providers Date of Admission: 01/26/22 23:24 Date of Discharge: February 03, 2022 Attending Provider at Admission: Curtis Echols Attending Provider at Discharge: Antoino Holliday MD Primary Care Provider: Mervat Nguyen Diagnoses at Discharge Discharge Diagnosis (1) Hyponatremia: Status: Acute (2) Cellulitis: Status: Acute (3) Rash: Status: Acute (4) Inability to walk: Status: Acute (5) Arthralgia: Status: Acute (6) DELMIS (obstructive sleep apnea): Status: Acute (7) Obesity with alveolar hypoventilation: Status: Acute Qualifiers: Obesity classification: adult class 3 (BMI >= 40) Serious obesity comorbidity presence: with serious comorbidity Body mass index: BMI 50.0-59.9 Qualified Code(s): E66.2 - Morbid (severe) obesity with alveolar hypoventilation; Z68.43 - Body mass index [BMI] 50.0-59.9, adult (8) Oxygen dependent: Status: Acute (9) Atrial fibrillation: Status: Acute Qualifiers: Atrial fibrillation type: longstanding persistent Qualified Code(s): I48.11 - Longstanding persistent atrial fibrillation (10) Congestive heart failure: Status: Acute Qualifiers: Heart failure type: unspecified Heart failure chronicity: unspecified Qualified Code(s): I50.9 - Heart failure, unspecified (11) COPD (chronic obstructive pulmonary disease): Status: Acute Qualifiers: COPD type: unspecified COPD Qualified Code(s): J44.9 - Chronic obstructive pulmonary disease, unspecified (12) CKD (chronic kidney disease): Status: Acute (13) Hyperlipidemia: Status: Acute Qualifiers: Hyperlipidemia type: mixed hyperlipidemia Qualified Code(s): E78.2 - Mixed hyperlipidemia (14) DWIGHT (acute kidney injury): Status: Acute (15) UTI (urinary tract infection): Status: Acute (16) Hypertension: Status: Chronic Qualifiers: Hypertension type: renovascular hypertension Qualified Code(s): I15.0 - Renovascular hypertension (17) Major depressive disorder, recurrent severe without psychotic features: Status: Chronic (18) Generalized anxiety disorder: Status: Chronic (19) 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 (20) History of noncompliance with medical treatment: Status: Chronic Reason for Visit Reason for Visit: general Hospital Course Hospital Course This is a 56-year-old female with a past medical history of insulin-dependent type 2 diabetes mellitus, atrial fibrillation on Eliquis, hypertension hyperlipidemia hypothyroidism, morbid obesity, history of diastolic CHF, obstructive sleep apnea, COPD, who presents to [facility] for a fall and immobility Patient was admitted to [facility] for extensive cellulitis, severe contact dermatitis related to prolonged fall and immobility, she received broad- spectrum antibiotic therapy, clinically improved, discharged on Augmentin In terms of her acute on chronic pain secondary to fall and immobility, has severe bilateral knee osteoarthritis, bilateral hip osteoarthritis managed with pain medications and inpatient, discharged on hydrocodone to his local detention In terms of her disposition, patient has been evicted from her current residence, has been discharged to [facility] facility Patient was also found to have Afshan Ruddy GI UTI, discharged on Diflucan Had DWIGHT during hospitalization, improved, discharged on Lasix 40 mg once a day Patient chronically has inability to walk, does transfer with assistance Physical Exam Const: COMMON NORMALS: no acute distress and patient oriented x3 Resp: COMMON NORMALS: normal respiratory effort, No retractions, No use of accessory muscles and clear to auscultation bilaterally AUSCULTATION: clear to auscultation bilaterally Cardio: COMMON NORMALS: regular rate, regular rhythm, S1 normal heart sound present and S2 normal heart sound present RATE: regular rate RHYTHM: regular rhythm HEART SOUNDS: S1 normal heart sound present and S2 normal heart sound present GI: COMMON NORMALS: Normal to inspection, nondistended, normoactive bowel sounds present, Soft to palpation, non-tender and No hepatosplenomegaly present PALPATION: Yes Soft to palpation and Yes No hepatosplenomegaly present Extremity: COMMON NORMALS: no pedal edema Neuro: COMMON NORMALS: patient oriented x3 Psych: COMMON NORMALS: mental status grossly normal Skin: NARRATIVE SKIN EXAM: Areas as well as, with a marked borders, improving, less erythematous, more splotchy areas Urinary Catheter Management: Casiano: Cath Placed During This Visit: yes, but has since been removed by the nurse Reason for Continuing Indwelling Catheter: Decision to DC Catheter Urinary Catheter Date of Insertion: 01/27/22 Urinary Catheter Time of Insertion: 11:30 Date Urinary Catheter Removed: 01/29/22 Time Urinary Catheter Discontinued: 14:41 Discharge Data Studies Completed and Pending Completed Studies During Hospitalization Category Date Time Status CTA abdomen pelvis [CT angio abdomen pelvis [id number]] Cat Scan 01/26/22 21:10 Completed Urgent XR chest 1V portable [id number] Stat Exams 02/02/22 21:24 Completed XR hand LT min 3V* [id number] Urgent Exams 01/26/22 19:59 Completed Pending at discharge Category Date Time Status Blood Culture Stat Lab 02/02/22 08:35 Results NAOMIID JEOVANNYH [Coronavirus PCR] Routine Lab 02/02/22 15:17 Ordered Complete Blood Count w/Auto AM LABS Lab 02/04/22 04:00 Ordered Complete Blood Count w/Auto AM LABS Lab 02/05/22 04:00 Ordered Comprehensive Metabolic Panel AM LABS Lab 02/04/22 04:00 Ordered Comprehensive Metabolic Panel AM LABS Lab 02/05/22 04:00 Ordered Magnesium AM LABS Lab 02/04/22 04:00 Ordered Magnesium AM LABS Lab 02/05/22 04:00 Ordered Phosphorus AM LABS Lab 02/04/22 04:00 Ordered Phosphorus AM LABS Lab 02/05/22 04:00 Ordered Sputum Culture and Gram Stain Stat Lab 01/27/22 14:30 Uncollected Venous Blood Gas Stat Lab 01/27/22 14:52 Results Radiology Impressions Hand X-Ray 01/26/22 19:59 IMPRESSION: No acute osseous findings. Other findings as above. Abdomen/Pelvis CTA 01/26/22 21:10 IMPRESSION: 1. Colonic diverticulosis with no acute bowel findings. 2. No aortic aneurysm, dissection or obvious large branch arterial occlusion/stenosis. 3. Other nonacute findings as described above. 4. Please see discussion above regarding soft tissue. Chest X-Ray 02/02/22 21:24 IMPRESSION: 1. Accentuated cardiac silhouette size and vascularity. See discussion above. 2. New right perihilar/medial basilar opacity. See discussion above. Clinical correlation and follow-up should be obtained. Laboratory Results WBC 7.5 10^3/uL (4.0-10.0) 02/03/22 08:35 RBC 3.81 10^6/uL (4.1-5.3) L 02/03/22 08:35 Hgb 10.8 g/dL (11.5-15.3) L 02/03/22 08:35 Hct 32.5 % (37.0-47.0) L 02/03/22 08:35 MCV 85.3 fl (81-99) 02/03/22 08:35 MCH 28.3 pg (28.0-34.0) 02/03/22 08:35 MCHC 33.2 g/dL (30.0-36.0) 02/03/22 08:35 RDW 13.4 % (12.1-15.1) 02/03/22 08:35 Plt Count 295 10^3/cmm (130-400) 02/03/22 08:35 MPV 10.3 fL (7.4-10.4) 02/03/22 08:35 Neut % (Auto) 75.7 % 02/03/22 08:35 Lymph % (Auto) 13.2 % 02/03/22 08:35 [place] % (Auto) 5.6 % 02/03/22 08:35 Eos % (Auto) 2.7 % 02/03/22 08:35 Baso % (Auto) 0.5 % 02/03/22 08:35 Neut # (Auto) 5.68 10^3/uL (1.8-7.7) 02/03/22 08:35 Lymph # (Auto) 1.0 10^3/uL (0.8-4.8) 02/03/22 08:35 [place] # (Auto) 0.4 10^3/uL (0.2-0.9) 02/03/22 08:35 Eos # (Auto) 0.2 10^3/uL (0.0-0.8) 02/03/22 08:35 Baso # (Auto) 0.0 10^3/uL (0.0-0.1) 02/03/22 08:35 Nucleated RBC % (auto) 0 % 02/03/22 08:35 Nucleated RBCs # 0.0 /100WBC 02/03/22 08:35 ESR 36 mm/hr (0-15) H 01/26/22 20:46 Specimen Type Venous 01/27/22 14:52 Sample Site Vein 01/27/22 14:52 Elian Test N/a 01/27/22 14:52 VBG pH 7.43 (7.32-7.42) H 01/27/22 14:52 VBG pCO2 27.6 mmHg (41-51) L 01/27/22 14:52 VBG pO2 61.3 mmHg (25-40) H 01/27/22 14:52 VBG HCO3 18.2 mmol/L (24-28) L 01/27/22 14:52 VBG Base Excess -4.6 mmol/L (-3.0-3.0) L 01/27/22 14:52 VBG Hematocrit 47.2 % (37-47) H 01/27/22 14:52 Header Boss ID Bd 01/27/22 14:52 Sodium 135 mmol/L (136-145) L 02/03/22 08:35 Potassium 4.4 mmol/L (3.5-5.1) 02/03/22 08:35 Chloride 103 mmol/L (98-107) 02/03/22 08:35 Carbon Dioxide 22 mmol/L (22-29) 02/03/22 08:35 Anion Gap 14.4 (5-19) 02/03/22 08:35 BUN 21 mg/dL (6-20) H 02/03/22 08:35 Creatinine 1.1 mg/dL (0.5-0.9) H 02/03/22 08:35 GFR Calculation 51.4 mL/min (90-130) L 02/03/22 08:35 Glucose 136 mg/dL (65-115) H 02/03/22 08:35 POC Glucose 142 mg/dL (70-110) H 02/03/22 10:46 Calculated Osmolality 285 mOsm/kg (285-295) 02/03/22 08:35 Calcium 9.0 mg/dL (8.5-10.5) 02/03/22 08:35 Phosphorus 3.6 mg/dL (2.5-4.5) 02/03/22 08:35 Magnesium 1.9 mg/dL (1.7-2.3) 02/03/22 08:35 Total Bilirubin 0.5 mg/dL (0.15-1.2) 02/03/22 08:35 AST 14 U/L (0-32) 02/03/22 08:35 ALT 20 U/L (0-33) 02/03/22 08:35 Alkaline Phosphatase 282 IU/L (35-105) H 02/03/22 08:35 Creatine Kinase 42 U/L (26-192) 01/26/22 20:46 C-Reactive Protein 273.1 mg/L (0.0-4.9) H 01/26/22 20:46 Total Protein 5.9 g/dL (6.6-8.7) L 02/03/22 08:35 Albumin 2.8 g/dL (3.5-5.2) L 02/03/22 08:35 Globulin 3.1 g/dL (1.3-4.6) 02/03/22 08:35 Urine Color Yellow (Yellow) 01/31/22 21:43 Urine Appearance Sl hazy (CLEAR) 01/31/22 21:43 Urine pH 5 (5-7) 01/31/22 21:43 Ur Specific [place] 1.015 (1.005-1.030) 01/31/22 21:43 Urine Protein Trace (Negative) 01/31/22 21:43 Urine Glucose (UA) Trace (Normal) H 01/31/22 21:43 Urine Ketones Negative (Negative) 01/31/22 21:43 Urine Blood 3+ (Negative) H 01/31/22 21:43 Urine Nitrate Negative (Negative) 01/31/22 21:43 Urine Bilirubin Neg (Negative) 01/31/22 21:43 Urine Urobilinogen Neg mg/dL (Negative) 01/31/22 21:43 Ur Leukocyte Esterase 2+ (Negative) H 01/31/22 21:43 Urine RBC 25-40 /hpf (0-2) H 01/31/22 21:43 Urine WBC 5-10 /hpf (0-5) H 01/31/22 21:43 Ur Squamous Epith Cells 15-25 /hpf (0-5) H 01/31/22 21:43 Amorphous Sediment Not Reportable 01/31/22 21:43 Urine Bacteria Trace /hpf (NONE) 01/31/22 21:43 Coarse Granular Casts 0-4 /lpf H 01/31/22 21:43 Urine Mucus Trace /hpf 01/31/22 21:43 Urine Yeast 1+ /hpf H 01/31/22 21:43 Vancomycin Trough 33.2 ug/mL (10-15) H* 01/28/22 12:55 Serum Ketones Negative (Negative) 01/27/22 14:52 SARS-CoV-2 Ag (Rapid) Negative (Negative) 02/02/22 15:14 Vitals Last Vital Signs Temp 97.9 F 02/03/22 12:00 Pulse 92 02/03/22 12:00 Resp 17 02/03/22 12:00 BP 145/84 02/03/22 12:00 Pulse Ox 98 02/03/22 12:00 Discharge Plan Discharge Patient Disposition: Xfer SNF Condition: Stable Prescriptions: New fluconazole 100 mg Tablet 150 mg PO DAILY 5 Days Qty: 5 0RF amoxicillin-pot clavulanate 875-125 mg Tablet 1 tab PO BID 5 Days Qty: 10 0RF furosemide 40 mg Tablet 40 mg PO DAILY@0800 30 Days Qty: 30 0RF Continued (DME) Accu-Chek Guide test strips Strip See Rx Instructions .ROUTE .MEDSUPPLY Qty: 300 3RF Rx Instructions: blood sugar 3 times a day (DME) blood-glucose meter Kit See Rx Instructions .Route Qty: 1 0RF Rx Instructions: Check blood sugars 3 times a day gabapentin 300 mg capsule 300 mg PO TID@0500,1300,2100 0RF pantoprazole 40 mg tablet,delayed release (DR/EC) 40 mg PO DAILY@0500 0RF aripiprazole [Abilify] 5 mg tablet 5 mg PO QAM Qty: 30 6RF (DME) pen needle, diabetic [Lite Touch Insulin Pen [place]] 31 gauge x 3/16 needle See Rx Instructions .ROUTE .MEDSUPPLY Qty: 400 3RF Rx Instructions: uses 4 times a day Basaglar KwikPen U-100 Insulin 100 unit/mL (3 mL) insulin pen 60 unit SUBCUT BID 90 Days Qty: 108 3RF Rx Instructions: 60 units bid (DME) lancets 21 gauge misc See Rx Instructions .Route Qty: 200 3RF Rx Instructions: Check BS 4 times a day. ondansetron HCl 4 mg tablet 4 mg PO Q6H PRN (Reason: Nausea And Vomiting) 0RF levothyroxine 25 mcg tablet 25 mcg PO DAILY@0500 0RF sertraline [Zoloft] 50 mg tablet 150 mg PO DAILY 0RF sumatriptan succinate [Imitrex] 25 mg tablet 25 mg PO PRN PRN (Reason: Migraine Headache) 0RF metoprolol tartrate 25 mg tablet 25 mg PO Q12H 0RF Eliquis 5 mg tablet 5 mg PO Q12H 0RF nystatin 100,000 unit/gram cream 1 applic topical BID Qty: 15 0RF Changed Novolog U-100 Insulin aspart 100 unit/mL solution See Rx Instructions .ROUTE .COMPLEX Qty: 130 0RF Rx Instructions: Inject, subcut, 3 times daily, after meals, based on moderate dose sliding scale potassium chloride 10 mEq Tablet Extended Release 10 meq PO DAILY Qty: 0 0RF hydrocodone-acetaminophen 10-325 mg tablet 1 tab PO Q4H 7 Days Qty: 42 0RF Discontinued sulfamethoxazole-trimethoprim 800-160 mg tablet 1 tab PO BID Qty: 14 0RF furosemide 80 mg Tablet 80 mg PO BID@0500,1700 0RF Discharge Orders: Discharge Order (Routine); Ordered 02/03/22 Ordered By: Antonio Holliday Other Ambulatory Orders: DME: Hospital Bed (Order) Location: None Selected Ordered By: Loreta Garcia Referrals: [facility] [Outside] Mervat Nguyen [Primary Care Provider] - Discharge Diet: Cardiac Discharge Activity: Resume usual activity Patient Instructions: Opioid Safety Activity Restrictions/Additional Instructions: - Please follow-up with primary care provider in 1 week Discharge Attestations Time Spent in Discharge Care*: less than 30 min Status at Discharge: Cognitive status at discharge: cognitively intact , Behavioral status at discharge: cooperative , Quality Metrics Clinical Quality Measures [ No reported AMI, CVA or VTE this stay] Coding Level of Care Code Acute g FW IL note Diagnoses Hyponatremia E87.1 Cellulitis L03.90 Rash R21 Inability to walk R26.2 Arthralgia M25.50 DELMIS (obstructive sleep apnea) G47.33 Obesity with alveolar hypoventilation E66.2; Z68.43 Obesity classification: adult class 3 (BMI >= 40) Serious obesity comorbidity presence: with serious comorbidity Body mass index: BMI 50.0-59.9 Oxygen dependent Z99.81 Atrial fibrillation I48.11 Atrial fibrillation type: longstanding persistent Congestive heart failure I50.9 Heart failure type: unspecified Heart failure chronicity: unspecified COPD (chronic obstructive pulmonary disease) J44.9 COPD type: unspecified COPD CKD (chronic kidney disease) N18.9 Hyperlipidemia E78.2 Hyperlipidemia type: mixed hyperlipidemia DWIGHT (acute kidney injury) N17.9 UTI (urinary tract infection) N39.0 Hypertension I15.0 Hypertension type: renovascular hypertension Major depressive disorder, recurrent severe without psychotic features F33.2 Generalized anxiety disorder F41.1 Hoarding disorder with excessive acquisition F42.3 History of noncompliance with medical treatment Z91.19
[2022-02-03 16:13] VITALS: BP 145/84; PULSE 92; RESP 17; TEMP 36.6; O2SAT 98
--- NOTE | 2022-02-03 16:45 | PC.NURSE ---
Patient discharged to [facility]. Report called to Silvia nurse at [facility]. Patient was discharged to be transportd via [facility].
== END 2022-02-03 16:38 | disposition skilled nursing facility (03) | DRG 603 ==
LOC: ER 20:59 → MEDSURG 01-27 00:19
PROVIDERS: Internal Medicine; Admitting Provider Internal Medicine; Emergency Provider Emergency Medicine; PCP Internal Medicine; Visit Provider Family Medicine
DX: L03.116 Cellulitis of left lower limb (principal); L03.314 Cellulitis of groin; L03.311 Cellulitis of abdominal wall; I48.11 Longstanding persistent atrial fibrillation; I13.0 Hypertensive heart and chronic kidney disease with heart failure and stage 1 through stage 4 chronic kidney disease, or unspecified chronic kidney disease; I50.32 Chronic diastolic (congestive) heart failure; N18.4 Chronic kidney disease, stage 4 (severe); F33.2 Major depressive disorder, recurrent severe without psychotic features; E66.2 Morbid (severe) obesity with alveolar hypoventilation; B37.49 Other urogenital candidiasis; N17.9 Acute kidney failure, unspecified; E87.1 Hypo-osmolality and hyponatremia; Z68.43 Body mass index [BMI] 50.0-59.9, adult; J44.9 Chronic obstructive pulmonary disease, unspecified; E11.22 Type 2 diabetes mellitus with diabetic chronic kidney disease; E11.65 Type 2 diabetes mellitus with hyperglycemia; E11.40 Type 2 diabetes mellitus with diabetic neuropathy, unspecified; I15.0 Renovascular hypertension; E03.9 Hypothyroidism, unspecified; F41.1 Generalized anxiety disorder; Z99.81 Dependence on supplemental oxygen; Z87.891 Personal history of nicotine dependence; L03.012 Cellulitis of left finger; M15.9 Polyosteoarthritis, unspecified; Z91.19 Patient's noncompliance with other medical treatment and regimen; Z79.01 Long term (current) use of anticoagulants; Z79.4 Long term (current) use of insulin; B86 Scabies; Z88.8 Allergy status to other drugs, medicaments and biological substances; Z99.3 Dependence on wheelchair; L25.9 Unspecified contact dermatitis, unspecified cause; F42.3 Hoarding disorder; E78.2 Mixed hyperlipidemia; E86.0 Dehydration; R26.2 Difficulty in walking, not elsewhere classified; G89.29 Other chronic pain
CPT/HCPCS: 36415; 36416; 51702; 51798; 71045; 73130; 74174; 80048; 80053; 80202; 81001; 82009; 82550; 82803; 82962; 83735; 84100; 85025; 85651; 86140; 87040; 87086; 87106; 87426; 87641; 93005; 96365; 96367; 96372; 96375; 96376; 97161; 99285; J0692; J1170; J1815; J2020; J2270; J3370; J7030; J7040; J7050; Q0162; Q9967

== ENCOUNTER 2023-08-16 03:23 | Emergency (ER) | payer MEDICARE, MEDICAID, SELFPAY ==
[2023-08-16 03:23] VITALS: BP 99/53; PULSE 85; RESP 20; TEMP 36.9; O2SAT 93; BMI 52.9
--- NOTE | 2023-08-16 03:31 | ECG_ITS ---
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 Measurements Intervals [place] Rate: 78 P: 0 NV: 0 QRS: 136 QRSD: 87 T: 31 QT: 382 QTc: 437 Interpretive Statements ATRIAL FIBRILLATION POSSIBLE RIGHT VENTRICULAR HYPERTROPHY [SOME/ALL OF: PROMINENT R IN V1, LATE TRANSITION, RAD, [place], SSS] POSSIBLE ANTERIOR MYOCARDIAL INFARCTION , PROBABLY OLD [30 ms Q WAVE IN V3/V4, OR R < 0.2 mV IN V4] Compared to ECG 02/02/2022 22:34:07 No significant changes Electronically Signed On 08-16-2023 8:36:01 PRESSURE WASHER by Sathya Sellers M.D. [email or web address]
[2023-08-16 03:33] VITALS: BP 114/93; PULSE 81; RESP 22; O2SAT 97
--- NOTE | 2023-08-16 03:39 | XRR_ITS ---
PROCEDURE INFORMATION: Exam: XR Chest Exam date and time: 08/16/2023 3:52 AM Age: 58 years old Clinical indication: Chest pressure; Patient HX: C/O chest pain. History of chf, copd, and afib. ; Additional info: Cp TECHNIQUE: Imaging protocol: Radiologic exam of the chest. Views: 1 view. COMPARISON: CR XR chest 1V portable [id number] 02/02/2022 9:28 PM FINDINGS: Lungs: interval increase in bilateral diffuse ground-glass and reticular opacities; superimposed right basilar lung suspected consolidates appear very similar. Can not exclude left retrocardiac/left basilar lung atelectasis versus infiltrate. Pleural spaces: Unremarkable. No pleural effusion. No pneumothorax. Heart/Mediastinum: Heart size appears enlarged. Re-identified apparent mediastinal widening due to known prominent epicardial fat Diaphragm: CP angles are clipped from the field of view. Bones/joints: Unremarkable. Other findings: Can not exclude small effusions XR/XR chest 1V portable [id number] IMPRESSION: Similar [id number]-left pulmonary opacities as above.
--- NOTE | 2023-08-16 03:58 | ED_ITS ---
HPI - Chest Pain 2 General: Chief Complaint: Chest Pain Stated Complaint: CP Time Seen by Provider: 08/16/23 03:39 History of Present Illness: 58-year-old female correction patient presenting with reproducible right-sided upper chest pain for the last 3 to 4 days. Pain is worse with cough. Worse with deep breathing. She has had a cough with minimal sputum production. No fever. The patient has a history of atrial fibrillation, for which she is on Eliquis. She takes morphine twice daily. She is diabetic. 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 Morbid obesity Hyponatremia Hypertension Hoarding disorder with excessive acquisition Generalized anxiety disorder Major depressive disorder, recurrent severe without psychotic features COPD (chronic obstructive pulmonary disease) Oxygen dependent Chronic anticoagulation On hold due to vaginal bleeding Congestive heart failure Hypertension Hypothyroidism DELMIS (obstructive sleep apnea) Atrial fibrillation Surgical History History of dental surgery Status post biopsy of skin Family History Other CAD (coronary artery disease) Chronic kidney disease (CKD) Diabetes Hyperlipidemia Hypertension Lung disease Thyroid disease Social History Smoking and tobacco/nicotine status: former use of tobacco/nicotine Quit status (tobacco/nicotine): has quit using Year quit tobacco: 2006 [id number] Second hand smoke exposure: No Alcohol intake: never Substance/Drug Use: never Lives independently: Yes Household members: spouse Marital status: Marital status details: is wheelchair-bound, Current occupational status: disabled Pets and animals: Yes Do you think of yourself as: Straight/Heterosexual Current gender identity: Female Physical Exam 2 Const: COMMON NORMALS: no acute distress GENERAL APPEARANCE: cooperative; not ill appearing and not frail appearing NUTRITIONAL APPEARANCE: obese HENMT: COMMON NORMALS: normocephalic, atraumatic and Normal external nose present HEAD & SCALP: normocephalic and atraumatic FACE & SINUS: normal facial exam and face symmetric NOSE: Normal external nose present Eye: COMMON NORMALS: Equal, round and reactive pupils present and EOMs intact bilaterally PUPIL: Yes Equal, round and reactive pupils present Neck/C-Spine: GENERAL: Yes trachea midline Chest: CHEST: Yes Symmetrical chest wall rise and Yes tenderness (Right upper anterior chest wall) Resp: COMMON NORMALS: normal respiratory effort, No retractions, No use of accessory muscles and clear to auscultation bilaterally AUSCULTATION: clear to auscultation bilaterally Cardio: COMMON NORMALS: regular rate and regular rhythm RATE: regular rate RHYTHM: regular rhythm GI: COMMON NORMALS: Normal to inspection, nondistended, normoactive bowel sounds present Extremity: COMMON NORMALS: no pedal edema Neuro: JEAN CLAUDE COMA SCALE: document GCS findings Jean Claude coma scale eye opening: Spontaneous Jean Claude coma scale verbal response: Orientated [place] coma scale motor response: Obey commands Jean Claude coma scale total score: 15 S ENSORY EXAM: Yes extremities (intact) Psych: COMMON NORMALS: speech normal SPEECH: Yes normal speech Skin: COMMON NORMALS: no rashes or lesions noted GENERAL SKIN EXAM: no rashes or lesions noted Course 2 Vital Signs: Vital signs: Vital Signs Temperature 98.4 F 08/16/23 03:23 Pulse Rate 89 08/16/23 06:58 Respiratory Rate 16 08/16/23 06:58 Blood Pressure 96/60 08/16/23 06:58 Pulse Oximetry 100 08/16/23 06:58 Oxygen Delivery Me thod Room Air 08/16/23 06:58 Oxygen Flow Rate 4 08/16/23 04:05 MDM - Chest Pain Medical Decision Making 58-year-old female with right-sided pleuritic chest discomfort and cough. She has right-sided infiltrates on chest x-ray. Her hemoglobin is 11, and stable. White blood cell count is 6.5. She is on Eliquis making pulmonary embolus not likely. She is also nontachycardic. Her troponin is 88, which is minimally higher than previous baseline troponins, but her creatinine is 1.8 which is higher than her previous baselines. She is given 1 dose of Lasix here, as BNP is elevated. She will be covered with antibiotics. She will be allowed discharge provided her second troponin does not rise significantly. Lab Data 08/16/23 04:00 08/16/23 04:00 Radiology Impressions Chest X-Ray 08/16/23 03:39 IMPRESSION: Similar [id number]-left pulmonary opacities as above. Laboratory Results WBC 6.48 10^3/uL (3.29-11.43) 08/16/23 04:00 RBC 4.61 10^6/uL (3.85-5.65) 08/16/23 04:00 Hgb 10.70 g/dL (11.27-16.99) L 08/16/23 04:00 Hct 39.0 % (36-47) 08/16/23 04:00 MCV 84.6 fl (85-98) L 08/16/23 04:00 MCH 23.2 pg (27-33) L 08/16/23 04:00 MCHC 27.4 g/dL (30-55) L 08/16/23 04:00 RDW 18.2 % (12.1-15.1) H 08/16/23 04:00 Plt Count 209 10^3/cmm (157-399) 08/16/23 04:00 MPV 10.8 fL (7.4-10.4) H 08/16/23 04:00 Neut % (Auto) 70.2 % 08/16/23 04:00 Lymph % (Auto) 19.1 % 08/16/23 04:00 [place] % (Auto) 7.1 % 08/16/23 04:00 Eos % (Auto) 2.5 % 08/16/23 04:00 Baso % (Auto) 0.5 % 08/16/23 04:00 Neut # (Auto) 4.55 10^3/uL (1.8-7.7) 08/16/23 04:00 Lymph # (Auto) 1.2 10^3/uL (0.8-4.8) 08/16/23 04:00 [place] # (Auto) 0.5 10^3/uL (0.2-0.9) 08/16/23 04:00 Eos # (Auto) 0.2 10^3/uL (0.0-0.8) 08/16/23 04:00 Baso # (Auto) 0.0 10^3/uL (0.0-0.1) 08/16/23 04:00 Nucleated RBC % (auto) 0 % 08/16/23 04:00 Nucleated RBCs # 0.0 /100WBC 08/16/23 04:00 Sodium 135 mmol/L (136-145) L 08/16/23 04:00 Potassium 5.1 mmol/L (3.5-5.1) 08/16/23 04:00 Chloride 101 mmol/L (98-107) 08/16/23 04:00 Carbon Dioxide 23 mmol/L (22-29) 08/16/23 04:00 Anion Gap 16.1 (5-19) 08/16/23 04:00 BUN 20 mg/dL (6-20) 08/16/23 04:00 Creatinine 1.8 mg/dL (0.5-0.9) H 08/16/23 04:00 GFR Calculation 28.9 mL/min (90-130) L 08/16/23 04:00 Glucose 138 mg/dL (65-115) H 08/16/23 04:00 Calculated Osmolality 285 mOsm/kg (285-295) 08/16/23 04:00 Calcium 8.3 mg/dL (8.5-10.5) L 08/16/23 04:00 Total Bilirubin 0.8 mg/dL (0.15-1.2) 08/16/23 04:00 AST 20 U/L (0-32) 08/16/23 04:00 ALT 15 U/L (0-33) 08/16/23 04:00 Alkaline Phosphatase 112 U/L (35-105) H 08/16/23 04:00 Creatine Kinase 94 U/L (26-192) 08/16/23 04:00 Troponin T Baseline 88 ng/L (0-10) H 08/16/23 04:00 Troponin T 120 Minute 93.06 ng/L (0-10) H 08/16/23 05:37 Delta Troponin T 5.06 ABS# (0-10) 08/16/23 05:37 NT-Pro-B Natriuret Pep 1520 pg/mL (0-125) H 08/16/23 04:00 Total Protein 6.6 g/dL (6.6-8.7) 08/16/23 04:00 Albumin 3.6 g/dL (3.5-5.2) 08/16/23 04:00 Globulin 3.0 g/dL (1.3-4.6) 08/16/23 04:00 Urine Color Yellow (Yellow) 08/16/23 04:35 Urine Appearance Cloudy (CLEAR) A 08/16/23 04:35 Urine pH 5 (5-7) 08/16/23 04:35 Ur Specific [place] 1.015 (1.005-1.030) 08/16/23 04:35 Urine Protein 1+ (Negative) H 08/16/23 04:35 Urine Glucose (UA) Norm (Normal) 08/16/23 04:35 Urine Ketones Negative (Negative) 08/16/23 04:35 Urine Blood 2+ (Negative) H 08/16/23 04:35 Urine Nitrate Negative (Negative) 08/16/23 04:35 Urine Bilirubin 1+ (Negative) H 08/16/23 04:35 Urine Urobilinogen 1 mg/dL (Negative) H 08/16/23 04:35 Ur Leukocyte Esterase 1+ (Negative) H 08/16/23 04:35 Urine RBC 5-10 /hpf (0-2) H 08/16/23 04:35 Urine WBC 25-40 /hpf (0-5) H 08/16/23 04:35 Ur Squamous Epith Cells 25-40 /hpf (0-5) H 08/16/23 04:35 Amorphous Sediment 1+ /hpf 08/16/23 04:35 Urine Bacteria 2+ /hpf (NONE) H 08/16/23 04:35 Hyaline Casts 0-4 /lpf H 08/16/23 04:35 Coarse Granular Casts 0-4 /lpf H 08/16/23 04:35 Urine Mucus 1+ /hpf 08/16/23 04:35 All radiology interpretation(s) finalized by discharge Discharge Plan Discharge Patient Disposition: Home Clinical Impression: Pneumonia Atrial fibrillation Qualifiers: Atrial fibrillation type: longstanding persistent Qualified Code(s): I48.11 - Longstanding persistent atrial fibrillation Condition: Stable Prescriptions: New levofloxacin 500 mg tablet 500 mg PO DAILY 7 Days Qty: 7 0RF No Action (DME) Accu-Chek Guide test strips Strip See Rx Instructions .ROUTE .MEDSUPPLY Qty: 300 3RF Rx Instructions: blood sugar 3 times a day (DME) blood-glucose meter Kit See Rx Instructions .Route Qty: 1 0RF Rx Instructions: Check blood sugars 3 times a day gabapentin 300 mg capsule 300 mg PO TID@0500,1300,2100 pantoprazole 40 mg tablet,delayed release (DR/EC) 40 mg PO DAILY@0500 aripiprazole [Abilify] 5 mg tablet 5 mg PO QAM Qty: 30 6RF (DME) pen needle, diabetic [Lite Touch Insulin Pen [place]] 31 gauge x 3/16 needle See Rx Instructions .ROUTE .MEDSUPPLY Qty: 400 3RF Rx Instructions: uses 4 times a day Basaglar KwikPen U-100 Insulin 100 unit/mL (3 mL) insulin pen 60 unit SUBCUT BID 90 Days Qty: 108 3RF Rx Instructions: 60 units bid (DME) lancets 21 gauge misc See Rx Instructions .Route Qty: 200 3RF Rx Instructions: Check BS 4 times a day. duloxetine 30 mg capsule,delayed release(DR/EC) 30 mg PO DAILY Qty: 30 6RF morphine [MS Contin] 30 mg tablet extended release 30 mg PO Q12H 30 Days Qty: 60 0RF hydrocodone-acetaminophen 5-325 mg tablet 1 tab PO Q8H PRN (Reason: pain) 30 Days Qty: 90 0RF ondansetron HCl 4 mg tablet 4 mg PO Q6H PRN (Reason: Nausea And Vomiting) levothyroxine 25 mcg tablet 25 mcg PO DAILY@0500 sumatriptan succinate [Imitrex] 25 mg tablet 25 mg PO PRN PRN (Reason: Migraine Headache) metoprolol tartrate 25 mg tablet 25 mg PO Q12H Eliquis 5 mg tablet 5 mg PO Q12H nystatin 100,000 unit/gram cream 1 applic topical BID Qty: 15 0RF potassium chloride 10 mEq Tablet Extended Release 10 meq PO DAILY Qty: 0 0RF Novolog U-100 Insulin aspart 100 unit/mL solution See Rx Instructions .ROUTE .COMPLEX Qty: 130 0RF Rx Instructions: Inject, subcut, 3 times daily, after meals, based on moderate dose sliding scale Discharge Orders: Discharge ED (Routine); Ordered 02/05/24 Ordered By: Bruno Henson Referrals: Ethan Ricci MD [Primary Care Provider] - 1-3 days Patient Instructions: Pneumonia (ED), Opioid Safety, Pain Management Activity Restrictions/Additional Instructions: Antibiotics as directed. Return for worsening shortness of breath despite treatment, worsening chest discomfort despite treatment, other concerning symptoms. Coding Level of Care Code ED Dispensing Optician Apprentice for Tanner Chavez
[2023-08-16 04:05] VITALS: PULSE 77; RESP 18; O2SAT 93
[2023-08-16 04:13] LABS: Basophils % 0.5 %; Eosinophils # 0.2 10^3/uL (0.0-0.8); Eosinophils % 2.5 %; Lymphocytes # 1.2 10^3/uL (0.8-4.8); Lymphocytes % 19.1 %; Mean Corpuscular HGB Conc 27.4 g/dL (30-55); Mean Corpuscular Hemoglobin 23.2 pg (27-33); Mean Corpuscular Volume 84.6 fl (85-98); Mean Platelet Volume 10.8 fL (7.4-10.4); Monocytes # 0.5 10^3/uL (0.2-0.9); Monocytes % 7.1 %; Neutrophils # 4.55 10^3/uL (1.8-7.7); Neutrophils % 70.2 %; Nucleated Red Blood Cells % 0 %; Platelet Count 209 10^3/cmm (157-399); Red Blood Count 4.61 10^6/uL (3.85-5.65); Red Cell Distribution Width 18.2 % (12.1-15.1); White Blood Count 6.48 10^3/uL (3.29-11.43)
[2023-08-16 04:32] LABS: Troponin(5th) Baseline 88 ng/L (0-10)
[2023-08-16 04:41] LABS: Alanine Aminotransferase 15 U/L (0-33); Albumin Level 3.6 g/dL (3.5-5.2); Alkaline Phosphatase 112 U/L (35-105); Anion Gap 16.1 (5-19); Aspartate Amino Transferase 20 U/L (0-32); Blood Urea Nitrogen 20 mg/dL (6-20); Calcium 8.3 mg/dL (8.5-10.5); Carbon Dioxide 23 mmol/L (22-29); Chloride 101 mmol/L (98-107); Creatine Phosphokinase 94 U/L (26-192); Glomerular Filtration Rate 28.9 mL/min (90-130); Glucose 138 mg/dL (65-115); NT Pro B Type Natriuretic Pept 1520 pg/mL (0-125); Osmolality Calculated 285 mOsm/kg (285-295); Potassium 5.1 mmol/L (3.5-5.1); Sodium 135 mmol/L (136-145); Total Bilirubin 0.8 mg/dL (0.15-1.2); Total Protein 6.6 g/dL (6.6-8.7)
[2023-08-16 04:53] LABS: Add Urine Microscopic? YES
[2023-08-16 04:55] LABS: Amorphous Sediment Urine 1+ /hpf; Bacteria Urine 2+ /hpf; Bilirubin Urine 1+ (Negative); Blood Urine 2+ (Negative); Glucose Urine UA Norm (Normal); Ketones Urine Negative (Negative); Leukocyte Esterase Urine 1+ (Negative); Mucus Urine 1+ /hpf; Nitrate Urine Negative (Negative); Protein Urine 1+ (Negative); Specific Gravity, Urine 1.015 (1.005-1.030); Squamous Epithelial Cell Urine 25-40 /hpf (0-5); Urine Appearance Cloudy (CLEAR); Urine Color Yellow (Yellow); Urobilinogen Urine 1 mg/dL (Negative); WBC Urine 25-40 /hpf (0-5); pH Urine 5 (5-7)
[2023-08-16 04:56] LABS: Coarse Granular Casts Urine 0-4 /lpf; Hyaline Casts Urine 0-4 /lpf
[2023-08-16 05:00] VITALS: BP 129/78; PULSE 92; RESP 20
[2023-08-16] MEDS: FUROsemide 10 mg/mL SDV 4mL 40 MG IVP (05:08)
[2023-08-16] MEDS: levofloxacin-dextrose 5 % 750 MG/150 ML PREMIX 100 MG IV (05:13)
[2023-08-16 06:01] LABS: Troponin 5 2HR 93.06 ng/L (0-10); Troponin 5 2HR Delta 5.06 ABS# (0-10)
--- NOTE | 2023-08-16 06:49 | PC.NURSE ---
Report received from DINESH Mcclelland. Krystin reported patient is ready to be discharged [facility]. Reported IV was discontinued but patient was still on monitor.
[2023-08-16 06:58] VITALS: BP 96/60; PULSE 89; RESP 16; O2SAT 100
== END 2023-08-16 10:15 | disposition home or self-care (01) ==
PROVIDERS: Emergency Provider Emergency Medicine; PCP Internal Medicine
DX: I48.11 Longstanding persistent atrial fibrillation (principal); J18.9 Pneumonia, unspecified organism; Z79.01 Long term (current) use of anticoagulants; Z79.4 Long term (current) use of insulin; Z87.891 Personal history of nicotine dependence; E11.22 Type 2 diabetes mellitus with diabetic chronic kidney disease; I13.0 Hypertensive heart and chronic kidney disease with heart failure and stage 1 through stage 4 chronic kidney disease, or unspecified chronic kidney disease; N18.4 Chronic kidney disease, stage 4 (severe); I50.9 Heart failure, unspecified; J44.9 Chronic obstructive pulmonary disease, unspecified; Z99.81 Dependence on supplemental oxygen
CPT/HCPCS: 36415; 71045; 80053; 81001; 82550; 83880; 84484; 85025; 93005; 96365; 96366; 96375; 99285; J1940; J1956

== ENCOUNTER → 2023-09-13 13:26 | Outpatient (BNVA) | payer MEDICARE, MEDICAID, SELFPAY | PROVIDERS: PCP Internal Medicine; Visit Provider Internal Medicine Cardiovascular Disease | DX: I48.11 Longstanding persistent atrial fibrillation (principal); E78.2 Mixed hyperlipidemia; F33.2 Major depressive disorder, recurrent severe without psychotic features; F41.1 Generalized anxiety disorder; E66.2 Morbid (severe) obesity with alveolar hypoventilation; Z68.43 Body mass index [BMI] 50.0-59.9, adult; N18.9 Chronic kidney disease, unspecified; Z87.891 Personal history of nicotine dependence; I48.91 Unspecified atrial fibrillation; R94.31 Abnormal electrocardiogram [ECG] [EKG] | CPT/HCPCS: 93005; 99203 ==

== ENCOUNTER 2023-10-10 06:17 | Observation (INO) | payer MEDICARE, MEDICAID, SELFPAY ==
[2023-10-10] VITALS (14 sets, daily range): BP systolic 125–160; BP diastolic 62–110; PULSE 70–102; RESP 18–22; TEMP 36.4–37.1; O2SAT 63–100; BMI 66.2
--- NOTE | 2023-10-10 06:21 | CTR_ITS ---
PROCEDURE INFORMATION: Exam: CT Head Without Contrast Exam date and time: 10/10/2023 6:48 AM Age: 58 years old Clinical indication: Altered mental status/memory loss; Additional info: AMS TECHNIQUE: Imaging protocol: Computed tomography of the head without contrast. Radiation optimization: All CT scans at this facility use at least one of these dose optimization techniques: automated exposure control; mA and/or kV adjustment per patient size (includes targeted exams where dose is matched to clinical indication); or iterative reconstruction. COMPARISON: CT head wo con* [id number] 06/19/2020 1:43 PM RADIATION DOSE METRICS: Total DLP (mGy-cm): 3137.51 FINDINGS: Brain: Evaluation is degraded by motion artifact. No hemorrhage, mass effect or midline shift. No acute, major vascular distribution infarction identified. There are foci of decreased attenuation in the periventricular and subcortical white matter, likely representing chronic small vessel ischemic changes. Mild cerebral volume loss is present. No intra-axial or extra-axial fluid collection seen. Cerebral ventricles: No ventriculomegaly. Paranasal sinuses: There is partial opacification of the left maxillary sinus and right ethmoid air cells. Mastoid air cells: Visualized mastoid air cells are well aerated. Bones/joints: Unremarkable. No acute fracture. Soft tissues: Unremarkable. CT/CT head wo con* [id number] IMPRESSION: No acute intracranial abnormality identified in this limited examination degraded by motion artifact.
--- NOTE | 2023-10-10 06:21 | XRR_ITS ---
PROCEDURE INFORMATION: Exam: XR Chest Exam date and time: 10/10/2023 6:48 AM Age: 58 years old Clinical indication: Shortness of breath; Additional info: AMS TECHNIQUE: Imaging protocol: Radiologic exam of the chest. Views: 1 view. COMPARISON: CR XR chest 1V portable [id number] 08/16/2023 3:52 AM FINDINGS: Lungs: Low lung volumes. There or increased lung markings and haziness of the lungs, which in the setting of cardiomegaly is suggestive of pulmonary congestion. Pneumonia should be excluded clinically. Pleural spaces: Unremarkable. No pleural effusion. No pneumothorax. Heart/Mediastinum: Stable moderately enlarged heart. Bones/joints: Unremarkable. XR/XR chest 1V portable [id number] IMPRESSION: Imaging findings suggestive of pulmonary congestion. Pneumonia should be excluded clinically.
--- NOTE | 2023-10-10 06:26 | ECG_ITS ---
[facility] Test Date: 2023-10-10 Pat Name: Ana Lilia Miller Department: Room: Gender: Female Lead Python Developer: : 1965 Requested By: Dory Ruvalcaba Order Number: [id number] [place] MD: Stacy Barboza M.D. Measurements Intervals [place] Rate: 89 P: 0 [place]: 0 QRS: 146 QRSD: 91 T: -6 QT: 384 QTc: 468 Interpretive Statements ATRIAL FIBRILLATION PATTERN CONSISTENT WITH PULMONARY DISEASE POSSIBLE RIGHT VENTRICULAR HYPERTROPHY [SOME/ALL OF: PROMINENT R IN V1, LATE TRANSITION, RAD, [place], SSS] ABNORMAL QRS-T ANGLE [QRS-T AXIS DIFFERENCE > 60] Compared to ECG 09/13/2023 13:40:43 Atrial abnormality now present Myocardial infarct finding no longer present Electronically Signed On 10-10-2023 18:38:11 CDT by Stacy Barboza M.D. [id number]
--- NOTE | 2023-10-10 06:29 | ED_ITS ---
HPI - Seizure 2 General: Chief Complaint: Seizure Stated Complaint: Seizure Time Seen by Provider: 10/10/23 06:21 Source: EMS Mode of arrival: EMS Limitations: no limitations History of Present Illness: HPI Narrative: 58-year-old female history of morbid obe sity found to have seizure-like activity left jail. Patient is at [facility] she is not responding here and does not give any history. She had a history of hypercapnia as well. Denies any known head injuries no known fevers. 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 Morbid obesity Hyponatremia Hypertension Hoarding disorder with excessive acquisition Generalized anxiety disorder Major depressive disorder, recurrent severe without psychotic features COPD (chronic obstructive pulmonary disease) Oxygen dependent Chronic anticoagulation On hold due to vaginal bleeding Congestive heart failure Hypertension Hypothyroidism DELMIS (obstructive sleep apnea) Atrial fibrillation Surgical History History of dental surgery Status post biopsy of skin Family History Other CAD (coronary artery disease) Chronic kidney disease (CKD) Diabetes Hyperlipidemia Hypertension Lung disease Thyroid disease Social History Smoking and tobacco/nicotine status: former use of tobacco/nicotine Quit status (tobacco/nicotine): has quit using Year quit tobacco: 2006 [id number] Second hand smoke exposure: No Alcohol intake: never Substance/Drug Use: never Lives independently: Yes Household members: spouse Marital status: Marital status details: is wheelchair-bound, Current occupational status: disabled Pets and animals: Yes Do you think of yourself as: Straight/Heterosexual Current gender identity: Female Physical Exam 2 Const: COMMON NORMALS: negative for patient oriented x3 HENMT: COMMON NORMALS: normocephalic and atraumatic HEAD & SCALP: n ormocephalic and atraumatic Eye: COMMON NORMALS: Equal, round and reactive pupils present and EOMs intact bilaterally PUPIL: Yes Equal, round and reactive pupils present Neck/C-Spine: COMMON NORMALS: full ROM and supple Chest: COMMONS NORMALS: normal inspection of the chest and normal palpation of entire chest wall Resp: COMMON NORMALS: normal respiratory effort, No retractions, No use of accessory muscles and clear to auscultation bilaterally AUSCULTATION: clear to auscultation bilaterally Cardio: COMMON NORMALS: regular rate, regular rhythm and No murmurs present (Cardio) RATE: regular rate RHYTHM: regular rhythm GI: COMMON NORMALS: Normal to inspection, nondistended, normoactive bowel sounds present, Soft to palpation, non-tender and no masses PALPATION: Yes Soft to palpation Extremity: COMMON NORMALS: normal to inspection and full ROM Neuro: COMMON NORMALS: moves all extremities and no focal motor deficits; negative for patient oriented x3 Psych: COMMON NORMALS: cooperative Skin: COMMON NORMALS: no rashes or lesions noted and no wounds GENERAL SKIN EXAM: no rashes or lesions noted Course 2 Vital Signs: Vital signs: Vital Signs Temperature 98.7 F 10/10/23 06:22 Pulse Rate 100 10/10/23 06:22 Respiratory Rate 18 10/10/23 06:22 Blood Pressure 155/110 10/10/23 06:22 Pulse Oximetry 96 10/10/23 06:22 MDM - Seizure MDM Narrative Medical decision making narrative: Patient presents here with altered mental status after possible seizure blood work head CT here are all normal she still has some altered mentation here x-ray showed a possible pneumonia we will get blood cultures start antibiotics I spoke to the hospitalist will admit. Lab Data 10/10/23 06:41 10/10/23 06:41 Labs: Radiology Impressions Chest X-Ray 10/10/23 06:21 IMPRESSION: Imaging findings suggestive of pulmonary congestion. Pneumonia should be excluded clinically. Head CT 10/10/23 06:21 IMPRESSION: No acute intracranial abnormality identified in this limited examination degraded by motion artifact. Laboratory Results WBC 12.36 10^3/uL (3.29-11.43) H 10/10/23 06:41 RBC 4.64 10^6/uL (3.85-5.65) 10/10/23 06:41 Hgb 11.20 g/dL (11.27-16.99) L 10/10/23 06:41 Hct 38.8 % (36-47) 10/10/23 06:41 MCV 83.6 fl (85-98) L 10/10/23 06:41 MCH 24.1 pg (27-33) L 10/10/23 06:41 MCHC 28.9 g/dL (30-55) L 10/10/23 06:41 RDW 17.6 % (12.1-15.1) H 10/10/23 06:41 Plt Count 320 10^3/cmm (157-399) 10/10/23 06:41 MPV 10.5 fL (7.4-10.4) H 10/10/23 06:41 Neut % (Auto) 84.8 % 10/10/23 06:41 Lymph % (Auto) 7.0 % 10/10/23 06:41 [place] % (Auto) 5.4 % 10/10/23 06:41 Eos % (Auto) 1.9 % 10/10/23 06:41 Baso % (Auto) 0.3 % 10/10/23 06:41 Neut # (Auto) 10.49 10^3/uL (1.8-7.7) H 10/10/23 06:41 Lymph # (Auto) 0.9 10^3/uL (0.8-4.8) 10/10/23 06:41 [place] # (Auto) 0.7 10^3/uL (0.2-0.9) 10/10/23 06:41 Eos # (Auto) 0.2 10^3/uL (0.0-0.8) 10/10/23 06:41 Baso # (Auto) 0.0 10^3/uL (0.0-0.1) 10/10/23 06:41 Nucleated RBC % (auto) 0 % 10/10/23 06:41 Nucleated RBCs # 0.0 /100WBC 10/10/23 06:41 PT 15.60 SECONDS (12.1-14.9) H 10/10/23 06:41 INR 1.20 (0.8-1.2) 10/10/23 06:41 Specimen Type Arterial 10/10/23 06:35 Sample Site Radial, right 10/10/23 06:35 ABG pH 7.36 (7.35-7.45) 10/10/23 06:35 ABG pCO2 46.5 mmHg (35-45) H 10/10/23 06:35 ABG pO2 124.0 mmHg (80.0-100.0) H 10/10/23 06:35 ABG PO2/FiO2 Ratio 0 10/10/23 06:35 ABG HCO3 26.0 mmol/L (22-26) 10/10/23 06:35 ABG Base Excess 0.1 mmol/L (-2.0-2.0) 10/10/23 06:35 Elian Test Pos 10/10/23 06:35 Hematocrit 34.3 % (37-47) L 10/10/23 06:35 O2 Delivery Device Nc 10/10/23 06:35 O2 Liters/Min 4.0 % 10/10/23 06:35 FiO2 36.0 % 10/10/23 06:35 Float Remover ID [email or web address] 10/10/23 06:35 Sodium 138 mmol/L (136-145) 10/10/23 06:41 Potassium 4.4 mmol/L (3.5-5.1) 10/10/23 06:41 Chloride 102 mmol/L (98-107) 10/10/23 06:41 Carbon Dioxide 24 mmol/L (22-29) 10/10/23 06:41 Anion Gap 16.4 (5-19) 10/10/23 06:41 BUN 16 mg/dL (6-20) 10/10/23 06:41 Creatinine 1.7 mg/dL (0.5-0.9) H 10/10/23 06:41 GFR Calculation 30.9 mL/min (90-130) L 10/10/23 06:41 Glucose 81 mg/dL (65-115) 10/10/23 06:41 POC Glucose 70 mg/dL (70-110) 10/10/23 06:37 Calculated Osmolality 286 mOsm/kg (285-295) 10/10/23 06:41 Calcium 8.7 mg/dL (8.5-10.5) 10/10/23 06:41 Total Bilirubin 0.8 mg/dL (0.15-1.2) 10/10/23 06:41 AST 11 U/L (0-32) 10/10/23 06:41 ALT 10 U/L (0-33) 10/10/23 06:41 Alkaline Phosphatase 120 U/L (35-105) H 10/10/23 06:41 NT-Pro-B Natriuret Pep 1792 pg/mL (0-125) H 10/10/23 06:41 Total Protein 7.3 g/dL (6.6-8.7) 10/10/23 06:41 Albumin 3.4 g/dL (3.5-5.2) L 10/10/23 06:41 Globulin 3.9 g/dL (1.3-4.6) 10/10/23 06:41 All radiology interpretation(s) finalized by discharge EKG Data EKG 1: Attestation: I personally reviewed and interpreted this EKG as follows: EKG interpretation date: 10/10/23 EKG interpretation time: 06:26 Interpretation: afib hr [address] or t wave abnormalities qrs 91 qtc 431 Discharge Plan Discharge Patient Disposition: Admitted As Inpatient Clinical Impression: Altered mental status Condition: Stable Prescriptions: No Action (DME) Accu-Chek Guide test strips Strip See Rx Instructions .ROUTE .MEDSUPPLY Qty: 300 3RF Rx Instructions: blood sugar 3 times a day (DME) blood-glucose meter Kit See Rx Instructions .Route Qty: 1 0RF Rx Instructions: Check blood sugars 3 times a day gabapentin 300 mg capsule 300 mg PO TID@0500,1300,2100 pantoprazole 40 mg tablet,delayed release (DR/EC) 40 mg PO DAILY@0500 (DME) pen needle, diabetic [Lite Touch Insulin Pen [place]] 31 gauge x 3/16 needle See Rx Instructions .ROUTE .MEDSUPPLY Qty: 400 3RF Rx Instructions: uses 4 times a day (DME) lancets 21 gauge misc See Rx Instructions .Route Qty: 200 3RF Rx Instructions: Check BS 4 times a day. ondansetron HCl 4 mg tablet 4 mg PO Q6H PRN (Reason: Nausea And Vomiting) levothyroxine 25 mcg tablet 25 mcg PO DAILY@0500 sumatriptan succinate [Imitrex] 25 mg tablet 25 mg PO Q6H PRN (Reason: Migraine Headache) metoprolol tartrate 25 mg tablet 25 mg PO Q12H Eliquis 5 mg tablet 5 mg PO Q12H acetaminophen 325 mg Tablet 650 mg PO Q4H PRN (Reason: pain or elevated temp) benzonatate 100 mg capsule 100 mg PO QID PRN (Reason: Cough) morphine 15 mg tablet extended release 15 mg PO BID propranolol 20 mg Tablet 20 mg PO BID PRN (Reason: muscle spasms) bupropion HCl 150 mg tablet extended release 24 hr 450 mg PO DAILY duloxetine 60 mg capsule,delayed release(DR/EC) 60 mg PO DAILY armodafinil 50 mg tablet 50 mg PO DAILY Tresiba FlexTouch U-100 100 unit/mL (3 mL) insulin pen 120 unit SUBCUT DAILY Nyst[place] 100,000 unit/gram powder 1 applic TOPICAL BID PRN (Reason: Rash) insulin aspart U-100 [Novolog U-100 Insulin aspart] 100 unit/mL solution See Rx Instructions .ROUTE .COMPLEX Qty: 130 0RF Rx Instructions: Inject, subcut, 3 times daily, after meals, based on moderate dose sliding scale Referrals: Ethan Ricci MD [Primary Care Provider] - Coding Level of Care Code ED [employer]ys [employer] Games Hand Finisher for Tanner Chavez
[2023-10-10 06:38] LABS: ABG PCO2 46.5 mmHg (35-45); ABG PH Result 7.36 (7.35-7.45); Arterial Blood Gas Hematocrit 34.3 % (37-47); Base Excess ABG 0.1 mmol/L (-2.0-2.0); Blood Gas Allen Test Pos; Blood Gas Sample Site Radial, right; Blood Gas Sample Type Arterial; Oxygen Device NC; PO2 FiO2 Ratio Arterial Blood 0
[2023-10-10 06:42] LABS: Glucose Point of Care 70 mg/dL (70-110)
[2023-10-10 06:50] LABS: Basophils % 0.3 %; Eosinophils # 0.2 10^3/uL (0.0-0.8); Eosinophils % 1.9 %; Hematocrit 38.8 % (36-47); Lymphocytes # 0.9 10^3/uL (0.8-4.8); Mean Corpuscular HGB Conc 28.9 g/dL (30-55); Mean Corpuscular Hemoglobin 24.1 pg (27-33); Mean Corpuscular Volume 83.6 fl (85-98); Mean Platelet Volume 10.5 fL (7.4-10.4); Monocytes # 0.7 10^3/uL (0.2-0.9); Monocytes % 5.4 %; Neutrophils # 10.49 10^3/uL (1.8-7.7); Neutrophils % 84.8 %; Nucleated Red Blood Cells % 0 %; Platelet Count 320 10^3/cmm (157-399); Red Blood Count 4.64 10^6/uL (3.85-5.65); Red Cell Distribution Width 17.6 % (12.1-15.1); White Blood Count 12.36 10^3/uL (3.29-11.43)
[2023-10-10 07:16] LABS: Alanine Aminotransferase 10 U/L (0-33); Albumin Level 3.4 g/dL (3.5-5.2); Alkaline Phosphatase 120 U/L (35-105); Anion Gap 16.4 (5-19); Aspartate Amino Transferase 11 U/L (0-32); Blood Urea Nitrogen 16 mg/dL (6-20); Calcium 8.7 mg/dL (8.5-10.5); Carbon Dioxide 24 mmol/L (22-29); Chloride 102 mmol/L (98-107); Globulin 3.9 g/dL (1.3-4.6); Glomerular Filtration Rate 30.9 mL/min (90-130); Glucose 81 mg/dL (65-115); NT Pro B Type Natriuretic Pept 1792 pg/mL (0-125); Osmolality Calculated 286 mOsm/kg (285-295); Potassium 4.4 mmol/L (3.5-5.1); Sodium 138 mmol/L (136-145); Total Bilirubin 0.8 mg/dL (0.15-1.2); Total Protein 7.3 g/dL (6.6-8.7)
--- NOTE | 2023-10-10 07:23 | PC.PHAR ---
PT IS FROM [facility]. SEVERAL MEDS DC'D POTASSIUM CHL 10MEQ, ABILIFY 5MG, BASAGLAR KWIKPEN, NORCO 5-325. DOSAGE INCREASE ON DULOXETINE TO 60MG, MORPHINE ER REDUCED TO 15 MG. NEW MEDS ARMODAFINIL 50MG IN AM, PROPRANOLOL 20 MG TWICE DAILY, TRESIBA 120 UNITS DAILY, TESLON 100 MG 4 TIMES DAILY FOR COUGH. 10/10/23
[2023-10-10 07:25] LABS: Creatinine Clr Calc Pharmacy 73.2661
[2023-10-10] MEDS: dextrose 10% 125 ML 750 ML IV (07:43)
--- NOTE | 2023-10-10 09:05 | P.HP_ITS ---
Providers/Chief Complaint 2 Primary Care Provider: Ethan Ricci MD Chief Complaint: Seizure History of Present Illness Ana Lilia Miller is a 58 year old female With past medical history of type 2 diabetes mellitus insulin-dependent, CKD stage IV, hypertension, morbid obesity, hypertension, generalized anxiety disorder, major depressive disorder, COPD, oxygen dependent on 4 L nasal cannula [id number] on chronic anticoagulation, diastolic heart failure, hypothyroidism, obstructive sleep apnea does not wear CPAP or BiPAP at night, atrial fibrillation, cataracts for which she is supposed to go for surgery on October 11 was brought to the hospital today after she was noted to be unresponsive with seizure like activity however did not have a true seizure. I called the detention and confirmed the above myself. They state that for the last few days she was complaining of chest pain however refused to go to the hospital. Did not experience any nausea vomiting diarrhea abdominal pain, constipation. Denied any shortness of breath. She does not have a history of seizures and never had one before. Her last known well was last night. senior living RN states patient is usually awake and alert and oriented. Above episode of the first occurrence. She was recently started on armodafinil and she has been awake alert. This morning she could not take any of her medications. When she was found to be unresponsive with seizure-like activity this morning her blood pressure was 138/105. Subsequently she was sent to the hospital for further evaluation via EMS. Record states that she is a full code. Not a alcohol user, no substance abuse, former smoker. ER course: When patient presented she was not providing any history. ABG was checked. Patient is not hypercapnic. No known fever recently. Blood pressure 155/110, pulse 100, respiratory to 18, saturating 96%. Labs mainly unremarkable with white count of 12,000, creatinine 1.7 which is her baseline. BNP 1700. Chest x-ray shows suggestion of pulmonary congestion. Pneumonia should be excluded clinically. CT head shows no intracranial abnormality however exam is degraded by motion artifact. On arrival to ER blood glucose was 70. She was given half a bag of D10. Subsequently patient is awake alert oriented. When I saw her in ED room 6 she is talking and able to provide a complete history. She says that she usually has twitching and that is normal for her. She says that has not a seizure. Otherwise she says that she is supposed to be on a CPAP or BiPAP at home however she does not have a machine. She says she was in the process of getting 1 in the past however it never went through for what ever reason. She does experience significant daytime sleepiness. And is tired all the time. Otherwise she does state that he has in the past few days she has been having some pressure-like chest pain however at times it is also sharp. Denies nausea vomiting diarrhea or any other symptoms at this time. Currently chest pain- free. He says 2 years ago she had a heart attack. Denies having any stents in her heart. Medications/Allergies Home Medications Medication Instructions Recorded Confirmed Last Taken Type gabapentin 300 mg capsule 300 mg PO TID@0500,1300,2100 10/05/19 10/10/23 05/26/21 History levothyroxine 25 mcg tablet 25 mcg PO DAILY@0500 03/03/20 10/10/23 05/26/21 History ondansetron HCl 4 mg tablet 4 mg PO Q6H PRN Nausea And Vomiting 03/03/20 10/10/23 10/15/20 History apixaban 5 mg tablet (Eliquis) 5 mg PO Q12H 06/18/20 10/10/23 05/26/21 History metoprolol tartrate 25 mg tablet 25 mg PO Q12H 06/18/20 10/10/23 05/26/21 History pantoprazole 40 mg tablet,delayed 40 mg PO DAILY@0500 06/18/20 10/10/23 05/26/21 History release sumatriptan succinate 25 mg tablet 25 mg PO Q6H PRN Migraine Headache 06/18/20 10/10/23 Unknown History (Imitrex) pen needle, diabetic 31 gauge x #400 ea 09/16/20 10/10/23 Unknown Rx 09/24 (Lite Touch Insulin Pen [place]) blood sugar diagnostic (Accu-Chek #300 ea 06/18/21 10/10/23 Unknown Rx Guide test strips) blood-glucose meter #1 ea 06/18/21 10/10/23 Unknown Rx lancets 21 gauge #200 ea 07/15/21 10/10/23 Unknown Rx insulin aspart U-100 100 unit/mL See Rx Instructions .Route 02/03/22 10/10/23 Unknown Rx subcutaneous solution (Novolog .COMPLEX #130 mL U-100 Insulin aspart) acetaminophen 325 mg tablet 650 mg PO Q4H PRN pain or elevated 10/10/23 10/10/23 Unknown History temp armodafinil 50 mg tablet 50 mg PO DAILY 10/10/23 10/10/23 Unknown History benzonatate 100 mg capsule 100 mg PO QID PRN Cough 10/10/23 10/10/23 Unknown History bupropion HCl 150 mg 24 hr tablet, 450 mg PO DAILY 10/10/23 10/10/23 Unknown History extended release duloxetine 60 mg capsule,delayed 60 mg PO DAILY 10/10/23 10/10/23 Unknown History release insulin degludec 100 unit/mL (3 120 unit SUBCUT DAILY 10/10/23 10/10/23 Unknown History mL) subcutaneous pen (Tresiba FlexTouch U-100 insulin) morphine 15 mg tablet,extended 15 mg PO BID 10/10/23 10/10/23 Unknown History release nystatin 100,000 unit/gram topical 1 applic topical BID PRN Rash 10/10/23 10/10/23 Unknown History powder (Nystop) propranolol 20 mg tablet 20 mg PO BID PRN muscle spasms 10/10/23 10/10/23 Unknown History Allergies Allergy/AdvReac Type Severity Reaction Status Date / Time Tetracyclines Allergy Severe ALGY-Anaphy Verified 09/13/23 13:32 laxis wool Allergy Intermediate ALGY-Hives Verified 09/13/23 13:32 mushroom Allergy Unknown Verified 09/13/23 13:32 adhesive AdvReac Unknown Verified 09/13/23 13:32 Artificial Sweetners AdvReac Intermediate ADR-Headach Uncoded 09/13/23 13:32 e PFSH Acute 2 PFSH: Medical History Acute paronychia of finger of left hand 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 Morbid obesity Hyponatremia Hypertension Hoarding disorder with excessive acquisition Generalized anxiety disorder Major depressive disorder, recurrent severe without psychotic features COPD (chronic obstructive pulmonary disease) Oxygen dependent Chronic anticoagulation On hold due to vaginal bleeding Congestive heart failure Hypertension Hypothyroidism DELMIS (obstructive sleep apnea) Atrial fibrillation Surgical History History of dental surgery Status post biopsy of skin Family History Other CAD (coronary artery disease) Chronic kidney disease (CKD) Diabetes Hyperlipidemia Hypertension Lung disease Thyroid disease Social History Smoking and tobacco/nicotine status: former use of tobacco/nicotine Quit status (tobacco/nicotine): has quit using Year quit tobacco: 2006 [id number] Second hand smoke exposure: No Alcohol intake: never Substance/Drug Use: never Lives independently: Yes Household members: spouse Marital status: Marital status details: is wheelchair-bound, Current occupational status: disabled Pets and animals: Yes Do you think of yourself as: Straight/Heterosexual Current gender identity: Female Vitals/I&O/Wt Last Vital Signs Temp 98.7 F 10/10/23 06:22 Pulse 100 10/10/23 06:22 Resp 18 10/10/23 06:22 BP 155/110 10/10/23 06:22 Pulse Ox 96 10/10/23 06:22 Weight last 48 hrs Weight 215.456 kg Physical Exam 2 Narrative: General: Awake alert oriented x 4. HEENT: Normocephalic, atraumatic, EOMI, saturating 95% on room air. Comfortable, laying almost flat, no shortness of breath. Cardio: Regular rate rhythm, normal S1-S2, no murmurs Respiratory: Clear to auscultation bilaterally no wheezes no rhonchi however difficult to auscultate secondary to large body habitus. GI: Abdomen soft, nontender, nondistended, bowel sounds +, obese large rounded abdomen Extremities:No Le edema b/l Data 10/10/23 06:41 10/10/23 06:41 A&P Assessment and plan (1) Major depressive disorder, recurrent severe without psychotic features: (2) Generalized anxiety disorder: (3) Hypertension: Qualifiers: Hypertension type: renovascular hypertension Qualified Code(s): I15.0 - Renovascular hypertension (4) Congestive heart failure: Qualifiers: Heart failure chronicity: unspecified Heart failure type: unspecified Qualified Code(s): I50.9 - Heart failure, unspecified (5) Atrial fibrillation: Qualifiers: Atrial fibrillation type: longstanding persistent Qualified Code(s): I 48.11 - Longstanding persistent atrial fibrillation (6) Hyperlipidemia: Qualifiers: Hyperlipidemia type: mixed hyperlipidemia Qualified Code(s): E78.2 - Mixed hyperlipidemia (7) Morbid obesity: (8) Long-term insulin use: (9) CKD (chronic kidney disease): (10) Altered mental status: (11) Inability to walk: Plan #Altered mental status?resolved in ER after glucose given. #Questionable seizure-like activity??Do not believe this was a seizure. #Hypoglycemia, altered mental status most likely secondary to this. #Chronically unable to walk, wheelchair-bound # Chronic kidney disease, creatinine baseline 1.7. #Diabetes mellitus type II, insulin-dependent #Chronic congestive heart failure with preserved EF #Obstructive sleep apnea #COPD #Atrial fibrillation?rate controlled #Hypertension #Hyperlipidemia #Hypothyroidism #Morbid obesity #Hx of non-compliance to medical treatment -Unsure if patient had a true seizure. senior living reports it was seizure-like activity but not a true seizure. Patient has been unresponsive. Since morning. Was complaining of chest pain in the last few days. Cardiac event? Patient probably had hypoglycemia due to which she was unresponsive. Patient woke up after getting half a bag of D10. She is back to her normal baseline mental status. ? Recently insulin was increased to 120 units nightly. I will change it to 90 units a day. ? Will check troponins and serial EKGs. Patient did complain of chest pain however right now is not having any chest pain. ? BNP is 1700 ? Check echo for wall motion abnormality ? ABG checked in ER. Patient is not hypercapnic. Does not wear CPAP or BiPAP at detention. ? Will continue her on 4 L nasal cannula which is her baseline. Right now patient is on room air and saturating 95%. ? Patient will need a formal sleep study to qualify for BiPAP or CPAP which I strongly believe she can benefit from. ? Atrial fibrillation is rate controlled at this time ? Continue patient on Eliquis at this time ? Hold propranolol, hold morphine. She is apparently on 15 p.o. twice daily. ? Continue metoprolol tartrate 25 every 12 ? Continue levothyroxine 25 daily ? I would hold gabapentin at this time she is on 300 3 times daily. ? Continue duloxetine ? Continue bupropion ? Hold bupropion at this time. ? Hold armodafinil. Indication obstructive sleep apnea/narcolepsy however patient unable to tell me why it was added to her regimen. I suspect this may be for daytime sleepiness. She denies a history of narcolepsy at this time. -Patient appears to be euvolemic. No need of giving diuretics at this time. Check sugars ACHS and started diet consistent carbohydrate cardiac ? Check ammonia, vitamin B12, prolactin, lactic acid ? Check blood cultures, urine culture ? I will hold off on antibiotics and observe at this time. If there is any other evidence of infection may start however we will observe for now. Full code DVT prophylaxis: On Eliquis. Attestations 2 Medical Necessity Statement*: Observation admission. Expect discharge prior to 48 hours. Diagnoses Major depressive disorder, recurrent severe without psychotic features F33.2 Generalized anxiety disorder F41.1 Renovascular hypertension I15.0 Hypertension type: renovascular hypertension Congestive heart failure, unspecified HF chronicity, unspecified heart failure type I50.9 Heart failure chronicity: unspecified Heart failure type: unspecified Longstanding persistent atrial fibrillation I48.11 Atrial fibrillation type: longstanding persistent Mixed hyperlipidemia E78.2 Hyperlipidemia type: mixed hyperlipidemia Morbid obesity E66.01 Long-term insulin use Z79.4 CKD (chronic kidney disease) N18.9 Altered mental status R41.82 Inability to walk R26.2
[2023-10-10 09:35] LABS: Lactic Sepsis W/Reflex 0.9 mmol/L (0.5-2.2)
[2023-10-10 09:50] LABS: Ammonia 40 umol/L (11-51)
[2023-10-10] MEDS: pantoprazole 40 mg SDV IVP (09:51)
[2023-10-10 09:54] LABS: Procalcitonin 0.15 ng/mL (0-0.5); Thyroid Stimulating Hormone 4.46 uIU/mL (0.27-4.20); Vitamin B12 378 pg/mL (232-1245)
[2023-10-10 09:56] LABS: Glucose Point of Care 111 mg/dL (70-110)
[2023-10-10 09:57] LABS: Estmated Average Glucose 137; Hemoglobin A1C 6.4 % (4.0-6.0)
[2023-10-10 10:14] LABS: Troponin(5th) Baseline 81 ng/L (0-10)
[2023-10-10 10:22] LABS: Prolactin 17.63 ng/mL (4.8-23.3)
--- NOTE | 2023-10-10 11:29 | ECG_ITS ---
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 Measurements Intervals [place] Rate: 100 P: 0 MT: 0 QRS: 119 QRSD: 85 T: 0 QT: 387 QTc: 501 Interpretive Statements ATRIAL FIBRILLATION WITH RAPID VENTRICULAR RESPONSE PATTERN CONSISTENT WITH PULMONARY DISEASE POSSIBLE RIGHT VENTRICULAR HYPERTROPHY [SOME/ALL OF: PROMINENT R IN V1, LATE TRANSITION, RAD, NJ, SSS] Compared to ECG 10/10/2023 06:26:22 No significant changes Electronically Signed On 10-10-2023 18:58:09 CDT by Stacy Barboza M.D. [email or web address]
[2023-10-10 11:50] LABS: Glucose Point of Care 76 mg/dL (70-110)
[2023-10-10 12:28] LABS: Troponin 5 2HR 69.71 ng/L (0-10)
[2023-10-10] MEDS: apixaban 5 mg Tablet PO (12:46)
[2023-10-10] MEDS: metoprolol tartrate 25 mg Tablet PO (12:46)
[2023-10-10 12:57] LABS: Troponin 5 2HR Delta -11.29 ABS# (0-10)
--- NOTE | 2023-10-10 15:30 | ECG_ITS ---
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 Measurements Intervals [place] Rate: 79 P: 0 MN: 0 QRS: 132 QRSD: 93 T: 43 QT: 390 QTc: 450 Interpretive Statements ATRIAL FIBRILLATION PATTERN CONSISTENT WITH PULMONARY DISEASE POSSIBLE RIGHT VENTRICULAR HYPERTROPHY [SOME/ALL OF: PROMINENT R IN V1, LATE TRANSITION, RAD, NJ, SSS] Compared to ECG 10/10/2023 11:29:49 No significant changes Electronically Signed On 10-10-2023 18:58:23 CDT by Stacy Barboza M.D. [id number]
[2023-10-10 15:51] LABS: Troponin 5 6HR 74.23 ng/L (0-10)
[2023-10-10 15:56] LABS: Troponin 5 6HR Delta -6.77 ng/L (0-12)
[2023-10-10 16:11] LABS: Glucose Point of Care 110 mg/dL (70-110)
[2023-10-10 20:52] LABS: Glucose Point of Care 126 mg/dL (70-110)
--- NOTE | 2023-10-10 20:53 | PC.NURSE ---
Patient's finger stick blood sugar is 126 at 2040.
--- NOTE | 2023-10-10 20:57 | PC.NURSE ---
Patient's BG is 126 and had 36 units of lantus ordered for bedtime administration. Clarified with Dr. Iglesias if he would still like the 36 units given, he gave one time order for 10 units of lantus instead.
[2023-10-10] MEDS: insulin glargine 100 units/1 mL 10 UNIT SUBCUT (22:00)
[2023-10-11] VITALS (7 sets, daily range): BP systolic 130–146; BP diastolic 68–78; PULSE 76–90; RESP 18–20; TEMP 36.4–36.6; O2SAT 98–100; BMI 66.2
[2023-10-11] MEDS: metoprolol tartrate 25 mg Tablet PO (00:34)
[2023-10-11] MEDS: apixaban 5 mg Tablet PO (00:35)
[2023-10-11 02:55] LABS: Basophils % 0.4 %; Eosinophils # 0.4 10^3/uL (0.0-0.8); Eosinophils % 4.3 %; Hematocrit 36.4 % (36-47); Lymphocytes # 1.1 10^3/uL (0.8-4.8); Lymphocytes % 10.9 %; Mean Corpuscular HGB Conc 28.8 g/dL (30-55); Mean Corpuscular Hemoglobin 23.8 pg (27-33); Mean Corpuscular Volume 82.4 fl (85-98); Mean Platelet Volume 10.7 fL (7.4-10.4); Monocytes # 0.6 10^3/uL (0.2-0.9); Monocytes % 6.3 %; Neutrophils # 7.68 10^3/uL (1.8-7.7); Neutrophils % 77.6 %; Nucleated Red Blood Cells % 0 %; Platelet Count 313 10^3/cmm (157-399); Red Blood Count 4.42 10^6/uL (3.85-5.65); Red Cell Distribution Width 17.5 % (12.1-15.1)
[2023-10-11 03:20] LABS: Alanine Aminotransferase 8 U/L (0-33); Albumin Level 3.3 g/dL (3.5-5.2); Alkaline Phosphatase 126 U/L (35-105); Anion Gap 15.4 (5-19); Aspartate Amino Transferase 10 U/L (0-32); Blood Urea Nitrogen 15 mg/dL (6-20); Calcium 8.5 mg/dL (8.5-10.5); Carbon Dioxide 26 mmol/L (22-29); Chloride 101 mmol/L (98-107); Creatinine Clr Calc Pharmacy 77.8452; Globulin 3.6 g/dL (1.3-4.6); Glomerular Filtration Rate 33.1 mL/min (90-130); Glucose 99 mg/dL (65-115); Magnesium 2.3 mg/dL (1.7-2.3); Osmolality Calculated 287 mOsm/kg (285-295); Phosphorus 3.5 mg/dL (2.5-4.5); Potassium 4.4 mmol/L (3.5-5.1); Sodium 138 mmol/L (136-145); Total Bilirubin 0.8 mg/dL (0.15-1.2); Total Protein 6.9 g/dL (6.6-8.7)
[2023-10-11] MEDS: levothyroxine 25 mcg Tablet PO (04:56)
[2023-10-11 06:34] LABS: Glucose Point of Care 99 mg/dL (70-110)
[2023-10-11] MEDS: pantoprazole 40 mg SDV IVP (07:58)
[2023-10-11] MEDS: buPROPion XL (24 HR) 150 mg Tablet 450 MG PO (07:58)
[2023-10-11] MEDS: duloxetine 60 mg Capsule PO (07:58)
--- NOTE | 2023-10-11 09:37 | PC.CHAP ---
Pastoral Care Encounter/Spiritual Assessment Type of Contact [] Declined practice management consultant visit [] Patient/Family/Request visit [] Outpatient visit [] Follow-up visit [] Physician referral [] Code/Alert [x] Routine visit [] Staff referral [] Actively dying [] Patient sleeping [] Family support [] [] Out of room [] Palliative care [] [] Receiving care in room [] Pre-surgical visit [] Trauma [] Long length of stay [] ICU visit [] Other: Relational/Emotional Strength [] Patient feels connected with others/family/visitors/staff [] Distress [] Loneliness/isolation [] Abandonment Spirituality of Patient [] Person of [place] [] Attends Protestant of their [place] [] Believes in Prayer [] Reads Bible or Episcopal materials [] There are Spiritual issues to be addressed Treatment Coordinator Interventions [x] Prayer [] Active listening [] Non-anxious presence [] Spiritual/emotional support [] Crisis/trauma care [] Spiritual counseling [] Bereavement support [] Provided bereavement packet [] Provided Bible/devotional materials [] Provided toy/stuffed animal, coloring book to patient or family member [] Provided Communion [] Anointing/[place] [] Salvation [] Completed spiritual assessment [] Other: Impact on Illness or Injury [] Angry [] Fearful [] Anxious [] Often cries [] Exhaustion [] Unable to work [] Unable to attend oriental orthodox [] Unable to walk/stand [] Unable to read [] Unable to drive [] Unable to eat/drink [] Unable to sleep [] Unable to be with family [] Patient intubated [] Other: Summary sleep Time spent with patient
[2023-10-11 10:58] LABS: Glucose Point of Care 117 mg/dL (70-110)
[2023-10-11 11:19] LABS: SARS Covid-2 Antigen negative (Negative)
--- NOTE | 2023-10-11 13:33 | PC.NURSE ---
Report called to Emi at [facility].
--- NOTE | 2023-10-11 13:36 | P.DS_ITS ---
Discharge Providers Date of Admission: 10/10/23 09:05 Date of Discharge: October 11, 2023 Attending Provider at Admission: Loreta Garcia MD Attending Provider at Discharge: Alisa Metzger MD Primary Care Provider: Ethan Ricci MD Diagnoses at Discharge Discharge Diagnosis (1) Major depressive disorder, recurrent severe without psychotic features: Status: Chronic (2) Generalized anxiety disorder: Status: Chronic (3) Hypertension: Status: Chronic Qualifiers: Hypertension type: renovascular hypertension Qualified Code(s): I15.0 - Renovascular hypertension (4) Congestive heart failure: Status: Acute Qualifiers: Heart failure type: unspecified Heart failure chronicity: unspecified Qualified Code(s): I50.9 - Heart failure, unspecified (5) Atrial fibrillation: Status: Acute Qualifiers: Atrial fibrillation type: longstanding persistent Qualified Code(s): I48.11 - Longstanding persistent atrial fibrillation (6) Hyperlipidemia: Status: Acute Qualifiers: Hyperlipidemia type: mixed hyperlipidemia Qualified Code(s): E78.2 - Mixed hyperlipidemia (7) Morbid obesity: Status: Acute (8) Long-term insulin use: Status: Acute (9) CKD (chronic kidney disease): Status: Acute (10) Altered mental status: Status: Acute (11) Inability to walk: Status: Acute Reason for Visit Reason for Visit: Seizure Hospital Course Hospital Course 58 year old female With past medical history of type 2 diabetes mellitus insulin-dependent, CKD stage IV, hypertension, morbid obesity, hypertension, generalized anxiety disorder, major depressive disorder, COPD, oxygen dependent on 4 L nasal cannula [id number] on chronic anticoagulation, diastolic heart failure, hypothyroidism, obstructive sleep apnea does not wear CPAP or BiPAP at night, atrial fibrillation, was sent to the hospital after being found to have possible seizure-like activity noted at the skilled nursing. Upon presentation patient was noted to be encephalopathic. She was found to be hypoglycemic for which she received D10. Subsequently patient became alert awake and oriented. After receiving dextrose, patient was able to be alert awake and oriented, provide a full history. She stated that she had some twitching in her upper extremities which is usual for her. She does not have a known history of seizure disorder. She remained alert awake during the course of her admission. ABG did not show any evidence of hypercapnia. Vital signs remained stable. CT head showed no acute intracranial abnormality, however exam was degraded by motion artifact. HbA1c returned at 6.4, previously 14.1 in 2020. She was probably started on insulin in 2019 review of medication list shows when her HbA1c was at 21.8. Review of medication list shows that patient was on Tresiba 120 mg daily and sliding scale insulin. During the hospital course she did not receive any insulin. Her fingersticks have ranged between 70-1 26 in the hospital. Highly likely that with an HbA1c of 6.4 now, her insulin requirements have gone down substantially. She is being discharged with discontinuation of long-acting insulin. Mild dose sliding scale insulin lispro has been continued at discharge . Defer to skilled nursing physician regarding further continuation of sliding scale insulin versus transition to oral hypoglycemic agents for long-term glycemic control. Patient has additionally not followed up with endocrinology in about 2 years. Referral provided for the same. Physical Exam Narrative: General: No acute distress, AO x3 HEENT: PERRLA, pupils bilaterally equal and reactive, pallors not present Chest: Normal vesicular breath sounds, no added sounds, equal good air entry bilaterally CVS: S1-S2 regular, no murmurs, no tachycardia, no gallops, no rubs Abdomen: Soft, nontender, no organomegaly, bowel sounds present Neuro: No focal deficits, no facial deformity, AO x3, power 5/5 in all limbs Discharge Data Studies Completed and Pending Completed Studies During Hospitalization Category Date Time Status CT head wo con* [id number] Stat Cat Scan 10/10/23 06:21 Completed XR chest 1V portable [id number] Stat Exams 10/10/23 06:21 Completed Pending at discharge Category Date Time Status Blood Culture Routine Lab 10/10/23 09:25 Results Sputum Culture and Gram Stain Stat Lab 10/10/23 09:10 Uncollected Urinalysis Stat Lab 10/10/23 06:21 Uncollected Radiology Impressions Chest X-Ray 10/10/23 06:21 IMPRESSION: Imaging findings suggestive of pulmonary congestion. Pneumonia should be excluded clinically. Head CT 10/10/23 06:21 IMPRESSION: No acute intracranial abnormality identified in this limited examination degraded by motion artifact. Laboratory Results WBC 9.90 10^3/uL (3.29-11.43) 10/11/23 02:19 RBC 4.42 10^6/uL (3.85-5.65) 10/11/23 02:19 Hgb 10.50 g/dL (11.27-16.99) L 10/11/23 02:19 Hct 36.4 % (36-47) 10/11/23 02:19 MCV 82.4 fl (85-98) L 10/11/23 02:19 MCH 23.8 pg (27-33) L 10/11/23 02:19 MCHC 28.8 g/dL (30-55) L 10/11/23 02:19 RDW 17.5 % (12.1-15.1) H 10/11/23 02:19 Plt Count 313 10^3/cmm (157-399) 10/11/23 02:19 MPV 10.7 fL (7.4-10.4) H 10/11/23 02:19 Neut % (Auto) 77.6 % 10/11/23 02:19 Lymph % (Auto) 10.9 % 10/11/23 02:19 [place] % (Auto) 6.3 % 10/11/23 02:19 Eos % (Auto) 4.3 % 10/11/23 02:19 Baso % (Auto) 0.4 % 10/11/23 02:19 Neut # (Auto) 7.68 10^3/uL (1.8-7.7) 10/11/23 02:19 Lymph # (Auto) 1.1 10^3/uL (0.8-4.8) 10/11/23 02:19 [place] # (Auto) 0.6 10^3/uL (0.2-0.9) 10/11/23 02:19 Eos # (Auto) 0.4 10^3/uL (0.0-0.8) 10/11/23 02:19 Baso # (Auto) 0.0 10^3/uL (0.0-0.1) 10/11/23 02:19 Nucleated RBC % (auto) 0 % 10/11/23 02:19 Nucleated RBCs # 0.0 /100WBC 10/11/23 02:19 PT 15.60 SECONDS (12.1-14.9) H 10/10/23 06:41 INR 1.20 (0.8-1.2) 10/10/23 06:41 Specimen Type Arterial 10/10/23 06:35 Sample Site Radial, right 10/10/23 06:35 ABG pH 7.36 (7.35-7.45) 10/10/23 06:35 ABG pCO2 46.5 mmHg (35-45) H 10/10/23 06:35 ABG pO2 124.0 mmHg (80.0-100.0) H 10/10/23 06:35 ABG PO2/FiO2 Ratio 0 10/10/23 06:35 ABG HCO3 26.0 mmol/L (22-26) 10/10/23 06:35 ABG Base Excess 0.1 mmol/L (-2.0-2.0) 10/10/23 06:35 Elian Test Pos 10/10/23 06:35 Hematocrit 34.3 % (37-47) L 10/10/23 06:35 O2 Delivery Device Nc 10/10/23 06:35 O2 Liters/Min 4.0 % 10/10/23 06:35 FiO2 36.0 % 10/10/23 06:35 Rn Advice ID [email or web address] 10/10/23 06:35 Sodium 138 mmol/L (136-145) 10/11/23 02:19 Potassium 4.4 mmol/L (3.5-5.1) 10/11/23 02:19 Chloride 101 mmol/L (98-107) 10/11/23 02:19 Carbon Dioxide 26 mmol/L (22-29) 10/11/23 02:19 Anion Gap 15.4 (5-19) 10/11/23 02:19 BUN 15 mg/dL (6-20) 10/11/23 02:19 Creatinine 1.6 mg/dL (0.5-0.9) H 10/11/23 02:19 GFR Calculation 33.1 mL/min (90-130) L 10/11/23 02:19 Glucose 99 mg/dL (65-115) 10/11/23 02:19 POC Glucose 117 mg/dL (70-110) H 10/11/23 10:50 Estimat Average Glucose 137 10/10/23 06:41 Hemoglobin A1c 6.4 % (4.0-6.0) H 10/10/23 06:41 Calculated Osmolality 287 mOsm/kg (285-295) 10/11/23 02:19 Lactic Acid 0.9 mmol/L (0.5-2.2) 10/10/23 06:41 Calcium 8.5 mg/dL (8.5-10.5) 10/11/23 02:19 Phosphorus 3.5 mg/dL (2.5-4.5) 10/11/23 02:19 Magnesium 2.3 mg/dL (1.7-2.3) 10/11/23 02:19 Total Bilirubin 0.8 mg/dL (0.15-1.2) 10/11/23 02:19 AST 10 U/L (0-32) 10/11/23 02:19 ALT 8 U/L (0-33) 10/11/23 02:19 Alkaline Phosphatase 126 U/L (35-105) H 10/11/23 02:19 Ammonia 40 umol/L (11-51) 10/10/23 09:25 Troponin T Baseline 81 ng/L (0-10) H 10/10/23 06:41 Troponin T 120 Minute 69.71 ng/L (0-10) H 10/10/23 11:55 Delta Troponin T -11.29 ABS# (0-10) L 10/10/23 11:55 Troponin T Hi Sens 6Hr 74.23 ng/L (0-10) H 10/10/23 15:24 Troponin T Hi Sens 6Hr Delta -6.77 ng/L (0-12) L 10/10/23 15:24 NT-Pro-B Natriuret Pep 1792 pg/mL (0-125) H 10/10/23 06:41 Total Protein 6.9 g/dL (6.6-8.7) 10/11/23 02:19 Albumin 3.3 g/dL (3.5-5.2) L 10/11/23 02:19 Globulin 3.6 g/dL (1.3-4.6) 10/11/23 02:19 Vitamin B12 378 pg/mL (232-1245) 10/10/23 06:41 Procalcitonin 0.15 ng/mL (0-0.5) 10/10/23 06:41 TSH 4.46 uIU/mL (0.27-4.20) H 10/10/23 06:41 Prolactin 17.63 ng/mL (4.8-23.3) 03/31/24 06:41 SARS-CoV-2 Ag (Rapid) negative (Negative) 10/11/23 10:50 Vitals Last Vital Signs Temp 97.5 F L 10/11/23 11:33 Pulse 90 10/11/23 11:33 Resp 18 10/11/23 11:33 BP 146/72 10/11/23 11:33 Pulse Ox 99 10/11/23 11:33 O2 Del Method Nasal Cannula 10/11/23 11:33 O2 Flow Rate 4 10/11/23 08:03 Discharge Plan Discharge Patient Disposition: Xfer SNF Condition: Stable Prescriptions: Continued (DME) Accu-Chek Guide test strips Strip See Rx Instructions .ROUTE .MEDSUPPLY Qty: 300 3RF Rx Instructions: blood sugar 3 times a day (DME) blood-glucose meter Kit See Rx Instructions .Route Qty: 1 0RF Rx Instructions: Check blood sugars 3 times a day gabapentin 300 mg capsule 300 mg PO TID@0500,1300,2100 pantoprazole 40 mg tablet,delayed release (DR/EC) 40 mg PO DAILY@0500 (DME) pen needle, diabetic [Lite Touch Insulin Pen [place]] 31 gauge x 3/16 needle See Rx Instructions .ROUTE .MEDSUPPLY Qty: 400 3RF Rx Instructions: uses 4 times a day (DME) lancets 21 gauge misc See Rx Instructions .Route Qty: 200 3RF Rx Instructions: Check BS 4 times a day. ondansetron HCl 4 mg tablet 4 mg PO Q6H PRN (Reason: Nausea And Vomiting) levothyroxine 25 mcg tablet 25 mcg PO DAILY@0500 sumatriptan succinate [Imitrex] 25 mg tablet 25 mg PO Q6H PRN (Reason: Migraine Headache) metoprolol tartrate 25 mg tablet 25 mg PO Q12H Eliquis 5 mg tablet 5 mg PO Q12H acetaminophen 325 mg Tablet 650 mg PO Q4H PRN (Reason: pain or elevated temp) benzonatate 100 mg capsule 100 mg PO QID PRN (Reason: Cough) morphine 15 mg tablet extended release 15 mg PO BID propranolol 20 mg Tablet 20 mg PO BID PRN (Reason: muscle spasms) bupropion HCl 150 mg tablet extended release 24 hr 450 mg PO DAILY duloxetine 60 mg capsule,delayed release(DR/EC) 60 mg PO DAILY armodafinil 50 mg tablet 50 mg PO DAILY Nystop 100,000 unit/gram powder 1 applic TOPICAL BID PRN (Reason: Rash) Changed Novolog U-100 Insulin aspart 100 unit/mL solution See Rx Instructions .ROUTE .COMPLEX Qty: 130 0RF Rx Instructions: Inject, subcut, 3 times daily, after meals, based on mild dose sliding scale Discontinued insulin degludec [Tresiba FlexTouch U-100] 100 unit/mL (3 mL) insulin pen 120 unit SUBCUT DAILY Discharge Orders: Discharge Order (Routine); Ordered 10/11/23 Ordered By: Alisa Metzger Referrals: [facility] [Outside] Ethan Ricci MD [Primary Care Provider] - Teddy Flores MD [Physician] - 11/11/23 12:15 pm Discharge Diet: Usual diet Discharge Activity: Resume usual activity Patient Instructions: Opioid Safety Discharge Attestations Time Spent in Discharge Care*: greater than 30 min Status at Discharge: Cognitive status at discharge: cognitively intact , Behavioral status at discharge: cooperative , Quality Metrics Clinical Quality Measures [ No reported AMI, CVA or VTE this stay] Coding Level of Care Code Acute Code for Chg Fwd Diagnoses Major depressive disorder, recurrent severe without psychotic features F33.2 Generalized anxiety disorder F41.1 Renovascular hypertension I15.0 Hypertension type: renovascular hypertension Congestive heart failure, unspecified HF chronicity, unspecified heart failure type I50.9 Heart failure type: unspecified Heart failure chronicity: unspecified Longstanding persistent atrial fibrillation I48.11 Atrial fibrillation type: longstanding persistent Mixed hyperlipidemia E78.2 Hyperlipidemia type: mixed hyperlipidemia Morbid obesity E66.01 Long-term insulin use Z79.4 CKD (chronic kidney disease) N18.9 Altered mental status R41.82 Inability to walk R26.2
== END 2023-10-11 14:19 | disposition skilled nursing facility (03) ==
LOC: ER 09:30 → MEDSURG 11:20
PROVIDERS: Admitting Provider Internal Medicine; Emergency Provider Emergency Medicine; PCP Internal Medicine; Visit Provider Student in an Organized Health Care Education/Training Program
DX: R41.82 Altered mental status, unspecified (principal); R26.2 Difficulty in walking, not elsewhere classified; F33.2 Major depressive disorder, recurrent severe without psychotic features; F41.1 Generalized anxiety disorder; I15.0 Renovascular hypertension; E11.22 Type 2 diabetes mellitus with diabetic chronic kidney disease; I13.0 Hypertensive heart and chronic kidney disease with heart failure and stage 1 through stage 4 chronic kidney disease, or unspecified chronic kidney disease; N18.4 Chronic kidney disease, stage 4 (severe); I50.30 Unspecified diastolic (congestive) heart failure; I48.11 Longstanding persistent atrial fibrillation; E78.2 Mixed hyperlipidemia; E66.01 Morbid (severe) obesity due to excess calories; Z68.44 Body mass index [BMI] 60.0-69.9, adult; J44.9 Chronic obstructive pulmonary disease, unspecified; Z99.81 Dependence on supplemental oxygen; G47.33 Obstructive sleep apnea (adult) (pediatric); I48.91 Unspecified atrial fibrillation; Z87.891 Personal history of nicotine dependence
CPT/HCPCS: 36415; 36416; 36600; 70450; 71045; 80053; 82140; 82607; 82803; 82962; 83036; 83605; 83735; 83880; 84100; 84145; 84146; 84443; 84484; 85025; 85610; 87040; 87077; 87150; 87205; 87426; 93005; 94664; 96372; 96374; 99285; C9113; G0378; J1815; J7799

== ENCOUNTER 2023-10-19 09:33 | Emergency (ER) | payer MEDICARE, MEDICAID, SELFPAY ==
[2023-10-19] VITALS (63 sets, daily range): BP systolic 93–180; BP diastolic 65–150; PULSE 0–96; RESP 9–35; TEMP 37.3; O2SAT 79–100; BMI 55.7
--- NOTE | 2023-10-19 09:37 | XR_ITS ---
WS: [id number] PORTABLE CHEST HISTORY: weakness, cough COMPARISON: 10/10/2023 Quality of this examination is limited by patient's body habitus. Bilateral patchy opacifications throughout both lungs, greatest in the mid and lower lung boucher. As compared to the most recent exam of 10/10/2023 there has been a slight improvement. No pneumothorax. S mall layering pleural effusions cannot be excluded. Cardiac size: Enlarged silhouette. Mediastinum/Aorta: Widening of the mediastinum. No osseous abnormality seen. IMPRESSION: 1. Bilateral extensive pulmonary opacifications. Differential includes pulmonary edema and pneumonia . Hemorrhage would appear similar. Slight improvement since 10/10/2023. 2. Mediastinum is widened and the cardiac silhouette is enlarged. Enlargement is exacerbated by lucero cent airspace disease
--- NOTE | 2023-10-19 09:38 | W.ED.WEAKNES ---
HPI - Weakness General: Chief complaint: Weakness Stated complaint: Weakness Time Seen by Provider: 10/19/23 09:35 History of Present Illness: 58-year-old female with a history of morbid obesity, diabetes, neuropathy, hypothyroidism atrial fibrillation on Eliquis, chronic hypoxemic respiratory failure on 4 L nasal cannula and COPD who [facility] with reports of confusion and hallucinations this morning. She says she did not have time to wake up and she is now awake and alert. I also reported she was hypoxemic. She is now in the mid 90s on 4 L nasal cannula which she is chronically on. She is currently being treated for a urinary tract infection with Macrobid. She says she does not feel well and still has some urinary symptoms. She reports some malaise and some generalized weakness but nothing focal. Currently with no hallucinations or altered mental status. No known fevers. She does report cough and mild shortness of breath. Review of Systems Narrative: Constitutional symptoms: Negative except as documented in HPI. Skin symptoms: Negative except as documented in HPI. Eye symptoms: Negative except as documented in HPI. ENMT symptoms: Negative except as documented in HPI. Respiratory symptoms: Negative except as documented in HPI. Cardiovascular symptoms: Negative except as documented in HPI. Gastrointestinal symptoms: Negative except as documented in HPI. Genitourinary symptoms: Negative except as documented in HPI. Musculoskeletal symptoms: Negative except as documented in HPI. Neurologic symptoms: Negative except as documented in HPI. Psychiatric symptoms: Negative except as documented in HPI. Endocrine symptoms: Negative except as documented in HPI. PFS ED PFSH: Medical History Acute paronychia of finger of left hand 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 Morbid obesity Hyponatremia Hypertension Hoarding disorder with excessive acquisition Generalized anxiety disorder Major depressive disorder, recurrent severe without psychotic features COPD (chronic obstructive pulmonary disease) Oxygen dependent Chronic anticoagulation On hold due to vaginal bleeding Congestive heart failure Hypertension Hypothyroidism DELMIS (obstructive sleep apnea) Atrial fibrillation Surgical History History of dental surgery Status post biopsy of skin Family History Other CAD (coronary artery disease) Chronic kidney disease (CKD) Diabetes Hyperlipidemia Hypertension Lung disease Thyroid disease Social History Smoking and tobacco/nicotine status: former use of tobacco/nicotine Quit status (tobacco/nicotine): has quit using Year quit tobacco: 2006 [id number] Second hand smoke exposure: No Alcohol intake: never Substance/Drug Use: never Lives independently: Yes Household members: spouse Marital status: Marital status details: is wheelchair-bound, Current occupational status: disabled Pets and animals: Yes Do you think of yourself as: Straight/Heterosexual Current gender identity: Female Physical Exam Narrative: EXAM NARRATIVE: General: Alert, no acute distress. Skin: Warm, dry. Head: Normocephalic, atraumatic. Neck: Supple, trachea midline. Eye: Extraocular movements are intact. Ears, nose, mouth and throat: mucosa moist. Cardiovascular: Regular, Normal peripheral perfusion. Respiratory: Lungs are clear to auscultation, respirations are non-labored, breath sounds are equal, Symmetrical chest wall expansion. Gastrointestinal: Soft, Nontender, Non distended, Normal bowel sounds. Musculoskeletal: Normal ROM, no deformity. Neurological: Alert and oriented, No focal neurological deficit observed. Psychiatric: Cooperative, appropriate mood & affect. Course Vital Signs: Vital signs: Vital Signs Temperature 99.2 F 10/19/23 09:38 Pulse Rate 95 10/19/23 11:50 Respiratory Rate 23 H 10/19/23 11:50 Blood Pressure 119/79 10/19/23 11:50 Pulse Oximetry 89 L 10/19/23 11:50 Oxygen Delivery Me thod Nasal Cannula 10/19/23 11:50 Oxygen Flow Rate 4 10/19/23 11:50 MDM - Weakness Medical Decision Making Medical decision making: Differential diagnosis including but not limited to and based on the above HPI, review of systems and physical exam: Workup to rule out any underlying infections. UTI and pneumonia of concern. Also flu and COVID. Currently not altered. Orders placed to evaluate differential diagnosis based on the above differential, HPI and physical exam Lab Review: Laboratory results were reviewed and interpreted by myself the emergency room physician. White count is 11. Hemoglobin is 12.8. Creatinine is 1.7 which compared to previous measurements is similar. No acute renal failure just chronic. Urine does appear infected. Chest x-ray: Chest x-ray was abnormal so CT scan was ordered. This was reviewed and interpreted by myself the ER physician. CT of the chest without contrast: This was read by the radiologist on-call. 1. Previously described opacifications by radiograph are not as apparent as seen on the CT examination. There is very minimal hazy attenuation groundglass attenuation which may be due to pneumonitis. There is no pneumonia or pulmonary congestion. 2. Very small RIGHT pleural effusion. 3. Mild cardiomegaly with increased pericardial fat deposition. No adenopathy. 4. Few mildly dilated pulmonary artery. Correlate for pulmonary hypertension. Reexamination: Lab Data 10/19/23 09:49 10/19/23 10:13 Laboratory Results WBC 11.19 10^3/uL (3.29-11.43) 10/19/23 09:49 RBC 5.34 10^6/uL (3.85-5.65) 10/19/23 09:49 Hgb 12.80 g/dL (11.27-16.99) 10/19/23 09:49 Hct 44.3 % (36-47) 10/19/23 09:49 MCV 83.0 fl (85-98) L 10/19/23 09:49 MCH 24.0 pg (27-33) L 10/19/23 09:49 MCHC 28.9 g/dL (30-55) L 10/19/23 09:49 RDW 17.5 % (12.1-15.1) H 10/19/23 09:49 Plt Count 332 10^3/cmm (157-399) 10/19/23 09:49 MPV 11.1 fL (7.4-10.4) H 10/19/23 09:49 Neut % (Auto) 79.2 % 10/19/23 09:49 Lymph % (Auto) 11.7 % 10/19/23 09:49 [place] % (Auto) 5.1 % 10/19/23 09:49 Eos % (Auto) 3.1 % 10/19/23 09:49 Baso % (Auto) 0.4 % 10/19/23 09:49 Neut # (Auto) 8.85 10^3/uL (1.8-7.7) H 10/19/23 09:49 Lymph # (Auto) 1.3 10^3/uL (0.8-4.8) 10/19/23 09:49 [place] # (Auto) 0.6 10^3/uL (0.2-0.9) 10/19/23 09:49 Eos # (Auto) 0.4 10^3/uL (0.0-0.8) 10/19/23 09:49 Baso # (Auto) 0.1 10^3/uL (0.0-0.1) 10/19/23 09:49 Nucleated RBC % (auto) 0 % 10/19/23 09:49 Nucleated RBCs # 0.0 /100WBC 10/19/23 09:49 Sodium 135 mmol/L (136-145) L 10/19/23 10:13 Potassium 4.4 mmol/L (3.5-5.1) 10/19/23 10:13 Chloride 98 mmol/L (98-107) 10/19/23 10:13 Carbon Dioxide 25 mmol/L (22-29) 10/19/23 10:13 Anion Gap 16.4 (5-19) 10/19/23 10:13 BUN 12 mg/dL (6-20) 10/19/23 10:13 Creatinine 1.7 mg/dL (0.5-0.9) H 10/19/23 10:13 GFR Calculation 30.9 mL/min (90-130) L 10/19/23 10:13 Glucose 125 mg/dL (65-115) H 10/19/23 10:13 Calculated Osmolality 281 mOsm/kg (285-295) L 10/19/23 10:13 Lactic Acid 1.3 mmol/L (0.5-2.2) 10/19/23 09:49 Calcium 9.2 mg/dL (8.5-10.5) 10/19/23 10:13 Total Bilirubin 0.8 mg/dL (0.15-1.2) 10/19/23 10:13 AST 9 U/L (0-32) 10/19/23 10:13 ALT 8 U/L (0-33) 10/19/23 10:13 Alkaline Phosphatase 141 U/L (35-105) H 10/19/23 10:13 C-Reactive Protein 88.4 mg/L (0.0-4.9) H 10/19/23 10:13 Total Protein 8.1 g/dL (6.6-8.7) 10/19/23 10:13 Albumin 3.7 g/dL (3.5-5.2) 10/19/23 10:13 Globulin 4.4 g/dL (1.3-4.6) 10/19/23 10:13 Urine Color Yellow (Yellow) 10/19/23 10:47 Urine Appearance Sl hazy (CLEAR) A 10/19/23 10:47 Urine pH 5 (5-7) 10/19/23 10:47 Ur Specific [place] 1.015 (1.005-1.030) 10/19/23 10:47 Urine Protein 1+ (Negative) H 10/19/23 10:47 Urine Glucose (UA) Norm (Normal) 10/19/23 10:47 Urine Ketones 1+ (Negative) H 10/19/23 10:47 Urine Blood Neg (Negative) 10/19/23 10:47 Urine Nitrate Negative (Negative) 10/19/23 10:47 Urine Bilirubin 1+ (Negative) H 10/19/23 10:47 Urine Urobilinogen 4 mg/dL (Negative) H 10/19/23 10:47 Ur Leukocyte Esterase Trace (Negative) H 10/19/23 10:47 Urine RBC 0-4 /hpf (0-2) H 10/19/23 10:47 Urine WBC 0-4 /hpf (0-5) H 10/19/23 10:47 Ur Squamous Epith Cells 5-10 /hpf (0-5) H 10/19/23 10:47 Ur Transition Epith Cell 0-4 /hpf 10/19/23 10:47 Amorphous Sediment Not Reportable 10/19/23 10:47 Urine Bacteria 1+ /hpf (NONE) H 10/19/23 10:47 Hyaline Casts 0-4 /lpf H 10/19/23 10:47 Urine Mucus 2+ /hpf 10/19/23 10:47 Influenza Type A Ag negative (Negative) 10/19/23 09:49 Influenza Type B Ag negative (Negative) 10/19/23 09:49 SARS-CoV-2 Ag (Rapid) negative (Negative) 10/19/23 09:49 All radiology interpretation(s) finalized by discharge Other Data Assessment and plan: Urinary tract infection -IV Rocephin in the emergency room. -Patient stable on her home 4 L nasal cannula. - Discharged home - Discussed findings and plan with patient. Answered any questions. - All laboratory values were reviewed and interpreted personally by myself, the ER physician - All imaging was reviewed and interpreted personally by myself, the ER physician. - Evaluation and treatment of this problem were appropriate in the emergency setting Discharge Plan Discharge Patient Disposition: Home Clinical Impression: Urinary tract infection Condition: Stable Prescriptions: New cefdinir 300 mg capsule 300 mg PO BID 5 Days Qty: 10 0RF No Action (DME) Accu-Chek Guide test strips Strip See Rx Instructions .ROUTE .MEDSUPPLY Qty: 300 3RF Rx Instructions: blood sugar 3 times a day (DME) blood-glucose meter Kit See Rx Instructions .Route Qty: 1 0RF Rx Instructions: Check blood sugars 3 times a day gabapentin 300 mg capsule 300 mg PO TID@0500,1300,2100 pantoprazole 40 mg tablet,delayed release (DR/EC) 40 mg PO DAILY@0500 (DME) pen needle, diabetic [Lite Touch Insulin Pen [place]] 31 gauge x 3/16 needle See Rx Instructions .ROUTE .MEDSUPPLY Qty: 400 3RF Rx Instructions: uses 4 times a day (DME) lancets 21 gauge misc See Rx Instructions .Route Qty: 200 3RF Rx Instructions: Check BS 4 times a day. ondansetron HCl 4 mg tablet 4 mg PO Q6H PRN (Reason: Nausea And Vomiting) levothyroxine 25 mcg tablet 25 mcg PO DAILY@0500 sumatriptan succinate [Imitrex] 25 mg tablet 25 mg PO Q6H PRN (Reason: Migraine Headache) metoprolol tartrate 25 mg tablet 25 mg PO Q12H Eliquis 5 mg tablet 5 mg PO Q12H acetaminophen 325 mg Tablet 650 mg PO Q4H PRN (Reason: pain or elevated temp) benzonatate 100 mg capsule 100 mg PO QID PRN (Reason: Cough) morphine 15 mg tablet extended release 15 mg PO BID propranolol 20 mg Tablet 20 mg PO BID PRN (Reason: muscle spasms) bupropion HCl 150 mg tablet extended release 24 hr 450 mg PO DAILY duloxetine 60 mg capsule,delayed release(DR/EC) 60 mg PO DAILY armodafinil 50 mg tablet 50 mg PO DAILY nystatin [Nystop] 100,000 unit/gram powder 1 applic TOPICAL BID PRN (Reason: Rash) insulin aspart U-100 [Novolog U-100 Insulin aspart] 100 unit/mL solution See Rx Instructions .ROUTE .COMPLEX Qty: 130 0RF Rx Instructions: Inject, subcut, 3 times daily, after meals, based on mild dose sliding scale Seroquel 25 mg Tablet See Rx Instructions .ROUTE .COMPLEX Rx Instructions: TAKE 25 MG BY MOUTH DAILY FOR 14 DAYS FOR HALLUCINATIONS. Discharge Orders: Discharge ED (Routine); Ordered 10/19/23 Ordered By: Lexie Key Referrals: Ethan Ricci MD [Primary Care Provider] - (You have been screened and evaluated and felt safe for discharge. Health conditions do change or evolve sometimes and as such it is important that you follow up with your Primary Doctor to be re checked, 3-5 days is a general good time frame for follow up. You are always welcome to return to the ED for re assessment if your symptoms are worsening or you have new concerns) Discharge Diet: Usual diet Discharge Activity: Resume usual activity Patient Instructions: Urinary Tract Infection in Women (ED), Opioid Safety, Pain Management Coding Level of Care Code ED Mechanical Field Engineer for Tanner Chavez
[2023-10-19 09:58] LABS: Basophils # 0.1 10^3/uL (0.0-0.1); Basophils % 0.4 %; Eosinophils # 0.4 10^3/uL (0.0-0.8); Eosinophils % 3.1 %; Hematocrit 44.3 % (36-47); Lymphocytes # 1.3 10^3/uL (0.8-4.8); Lymphocytes % 11.7 %; Mean Corpuscular HGB Conc 28.9 g/dL (30-55); Mean Platelet Volume 11.1 fL (7.4-10.4); Monocytes # 0.6 10^3/uL (0.2-0.9); Monocytes % 5.1 %; Neutrophils # 8.85 10^3/uL (1.8-7.7); Neutrophils % 79.2 %; Nucleated Red Blood Cells % 0 %; Platelet Count 332 10^3/cmm (157-399); Red Blood Count 5.34 10^6/uL (3.85-5.65); Red Cell Distribution Width 17.5 % (12.1-15.1); White Blood Count 11.19 10^3/uL (3.29-11.43)
--- NOTE | 2023-10-19 10:05 | CT_ITS ---
WS: [id number] CT chest wo con [id number] HISTORY: abnormal chest xray TECHNIQUE: Axial imaging performed through the thorax. Coronal and sagittal reformats are submitted. All CT scans at [facility] use at least one of these dose optimization techniques: automated exposure control; mA and/or kV adjustment per patient size (includes targeted exams where dose is mat ched to clinical indication); or iterative reconstruction. CONTRAST: None DLP: 1344.53 mGy.cm COMPARISON: Chest radiograph 10/19/2023, prior chest CT 08/07/2019 Lungs and central airway: There is mild hazy attenuation and subtle groundglass attenuation throughou t both lungs. There is no dense area of consolidation or pneumonia is suspected on the recent radiogr aph. Majority of the pulmonary changes are probably all due to the patient's body habitus and overlyi ng soft tissue. No change in the nodule in the RIGHT upper lobe measuring 9 mm since 2020. Pleura: Small layering RIGHT pleural effusion. Heart and pericardium: Mildly enlarged heart. Increased pericardial fat deposition. There is a very s mall amount of pericardial fluid versus pericardial thickening. Mediastinum and tejas: Small mediastinal and hilar lymph nodes. No adenopathy. Vessels: Normal size aorta. The pulmonary artery is mildly prominent measuring up to 3.4 cm. Chest wall and lower neck: No soft tissue masses. Upper abdomen: Poorly visualized upper abdominal structures. No abnormality identified on this unenha nced exam. Osseous structures: No destructive process. IMPRESSION: 1. Previously described opacifications by radiograph are not as apparent as seen on the CT examinati on. There is very minimal hazy attenuation groundglass attenuation which may be due to pneumonitis. T here is no pneumonia or pulmonary congestion. 2. Very small RIGHT pleural effusion. 3. Mild cardiomegaly with increased pericardial fat deposition. No adenopathy. 4. Few mildly dilated pulmonary artery. Correlate for pulmonary hypertension.
[2023-10-19 10:12] LABS: Lactic Sepsis W/Reflex 1.3 mmol/L (0.5-2.2)
[2023-10-19 10:31] LABS: Influenza A by IFA negative (Negative); Influenza B by IFA negative (Negative)
[2023-10-19 10:50] LABS: SARS Covid-2 Antigen negative (Negative)
[2023-10-19 10:55] LABS: Alanine Aminotransferase 8 U/L (0-33); Albumin Level 3.7 g/dL (3.5-5.2); Alkaline Phosphatase 141 U/L (35-105); Anion Gap 16.4 (5-19); Aspartate Amino Transferase 9 U/L (0-32); Blood Urea Nitrogen 12 mg/dL (6-20); C Reactive Protein 88.4 mg/L (0.0-4.9); Calcium 9.2 mg/dL (8.5-10.5); Carbon Dioxide 25 mmol/L (22-29); Chloride 98 mmol/L (98-107); Creatinine Clr Calc Pharmacy 65.5173; Globulin 4.4 g/dL (1.3-4.6); Glomerular Filtration Rate 30.9 mL/min (90-130); Glucose 125 mg/dL (65-115); Osmolality Calculated 281 mOsm/kg (285-295); Potassium 4.4 mmol/L (3.5-5.1); Sodium 135 mmol/L (136-145); Total Bilirubin 0.8 mg/dL (0.15-1.2); Total Protein 8.1 g/dL (6.6-8.7)
[2023-10-19 11:51] LABS: Bilirubin Urine 1+ (Negative); Blood Urine Neg (Negative); Glucose Urine UA Norm (Normal); Ketones Urine 1+ (Negative); Leukocyte Esterase Urine Trace (Negative); Nitrate Urine Negative (Negative); Protein Urine 1+ (Negative); Specific Gravity, Urine 1.015 (1.005-1.030); Urine Appearance SL Hazy (CLEAR); Urine Color Yellow (Yellow); Urobilinogen Urine 4 mg/dL (Negative); pH Urine 5 (5-7)
[2023-10-19 11:56] LABS: Add Urine Culture? No; Bacteria Urine 1+ /hpf; Hyaline Casts Urine 0-4 /lpf; Mucus Urine 2+ /hpf; RBC Urine 0-4 /hpf (0-2); Transitional Epi Cells Urine 0-4 /hpf; WBC Urine 0-4 /hpf (0-5)
[2023-10-19] MEDS: cefTRIAXone 1,000 MG in sodium chloride 0.9% (plus) 50 ML 100 MG IV (12:09)
== END 2023-10-19 16:15 | disposition home or self-care (01) ==
PROVIDERS: Emergency Provider Emergency Medicine; PCP Internal Medicine
DX: N39.0 Urinary tract infection, site not specified (principal); Z79.01 Long term (current) use of anticoagulants; Z79.4 Long term (current) use of insulin; Z11.52 Encounter for screening for COVID-19; Z87.891 Personal history of nicotine dependence; E11.22 Type 2 diabetes mellitus with diabetic chronic kidney disease; I13.0 Hypertensive heart and chronic kidney disease with heart failure and stage 1 through stage 4 chronic kidney disease, or unspecified chronic kidney disease; N18.4 Chronic kidney disease, stage 4 (severe); I50.9 Heart failure, unspecified; J44.9 Chronic obstructive pulmonary disease, unspecified; Z99.81 Dependence on supplemental oxygen
CPT/HCPCS: 36415; 71045; 71250; 80053; 81001; 83605; 85025; 86140; 87040; 87426; 87804; 99284; J0696

== ENCOUNTER 2023-10-26 05:02 | Emergency (ER) | payer MEDICARE, MEDICAID, SELFPAY ==
[2023-10-26] VITALS (13 sets, daily range): BP systolic 119–163; BP diastolic 72–104; PULSE 84–110; RESP 13–28; TEMP 36.9; O2SAT 89–100; BMI 64.5
--- NOTE | 2023-10-26 05:04 | ED_ITS ---
Documented by User: Walter Wood MD 10/26/23 06:12 HPI - Altered Mental Status 2 General: Chief Complaint: Altered Mental Status Stated Complaint: AMS Time Seen by Provider: 10/26/23 05:04 History of Present Illness: 58-year-old female presents emergency de partment via EMS personnel for long-term care facility. EMS states that the care home staff stated the patient has had altered mental status for approximately 2 weeks and was diagnosed with a urinary tract infection and provided antibiotics at that time. They state that the patient is normally alert and oriented x 4 but the patient over the last several days has been having hallucinations with continued altered mental status. EMS did provide 4 of Zofran and 500 mL of lactated Ringer's. The patient is a very poor historian given her current medical condition. 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 Morbid obesity Hyponatremia Hypertension Hoarding disorder with excessive acquisition Generalized anxiety disorder Major depressive disorder, recurrent severe without psychotic features COPD (chronic obstructive pulmonary disease) Oxygen dependent Chronic anticoagulation On hold due to vaginal bleeding Congestive heart failure Hypertension Hypothyroidism DELMIS (obstructive sleep apnea) Atrial fibrillation Surgical History History of dental surgery Status post biopsy of skin Family History Other CAD (coronary artery disease) Chronic kidney disease (CKD) Diabetes Hyperlipidemia Hypertension Lung disease Thyroid disease Social History Smoking and tobacco/nicotine status: former use of tobacco/nicotine Quit status (tobacco/nicotine): has quit using Year quit tobacco: 2006 [id number] Second hand smoke exposure: No Alcohol intake: never Substance/Drug Use: never Lives independently: Yes Household members: spouse Marital status: Marital status details: is wheelchair-bound, Current occupational status: disabled Pets and animals: Yes Do you think of yourself as: Straight/Heterosexual Current gender identity: Female Physical Exam 2 Narrative: Constitutional: Alert only to person, no acute distress at present, confused as to her current medical state. Malodorous, unkept appearance with a strong odor of urine. HENMT: Normocephalic, atraumatic. External ears normal appearance without drainage. Nose without drainage, normal appearance. Mucus membranes moist. Neck is supple, No jugular venous distension, trachea is midline, no appreciable carotid bruits. No lymphadenopathy. No meningeal signs. Flexion, extension and lateral rotation is without pain. Eyes: Pupils are equal, round, reactive to light and accommodation. No scleral icterus. Extra-ocular movement are intact. Thorax is symmetrical and with equal rise and fall with respirations. Resp: Lungs are clear to auscultation. No wheezes, rales, crackles or ronchi at present. Cardio: Regular rate and rhythm. Positive S1, S2. No appreciable murmurs, rubs or gallops. GI: Abdominal exam reveals normal bowel sounds to all quadrants. No organomegaly. No obvious palpable masses noted. No hepatomegally appreciated. Soft, non-tender to palpation. Genitourinary: Significant excoriation to the lower abdomen groin and medial aspect of her legs. Extremity: Extremities are non-edematous and both femoral and pedal pulses are 2+ and equal bilaterally. Moves all extremities well, sensation in all extremities. Neuro: Confused, Motor strength in the upper and lower extremities are equal and bilateral 5/5. Psych: Cooperative, calm, normal thought process, appropriate judgment. Skin: No lesions, rashes. No gross abnormalities noted. Back: Symmetrical, no obvious deformity, No CVA tenderness Course 2 Vital Signs: Vital signs: Vital Signs Temperature 98.4 F 10/26/23 05:05 Pulse Rate 106 H 10/26/23 15:15 Respiratory Rate 13 10/26/23 15:15 Blood Pressure 133/87 10/26/23 15:15 Pulse Oximetry 95 10/26/23 15:15 Oxygen Delivery Me thod Room Air 10/26/23 13:52 Oxygen Flow Rate 5 10/26/23 06:34 MDM - Altered Mental Status Medical Decision Making I have discussed the patient's case with the on-coming physician <Dr. Victoria> and they have assumed care of the patient. We have discussed the current lab/radiographic results that have been resulted and the pending tests. Medical Records I reviewed the patient's medical records. Lab Data I reviewed the patient's lab results. 10/26/23 05:20 10/26/23 05:20 Radiology Impressions Chest X-Ray 10/26/23 05:05 IMPRESSION: Extremely limited study. No definite acute abnormality. Head CT 10/26/23 05:43 IMPRESSION: No acute intracranial abnormality. Laboratory Results WBC 14.22 10^3/uL (3.29-11.43) H 10/26/23 05:20 RBC 5.27 10^6/uL (3.85-5.65) 10/26/23 05:20 Hgb 12.50 g/dL (11.27-16.99) 10/26/23 05:20 Hct 42.8 % (36-47) 10/26/23 05:20 MCV 81.2 fl (85-98) L 10/26/23 05:20 MCH 23.7 pg (27-33) L 10/26/23 05:20 MCHC 29.2 g/dL (30-55) L 10/26/23 05:20 RDW 18.4 % (12.1-15.1) H 10/26/23 05:20 Plt Count 311 10^3/cmm (157-399) 10/26/23 05:20 MPV 11.5 fL (7.4-10.4) H 10/26/23 05:20 Neut % (Auto) 83.0 % 10/26/23 05:20 Lymph % (Auto) 9.0 % 10/26/23 05:20 [place] % (Auto) 4.4 % 10/26/23 05:20 Eos % (Auto) 2.7 % 10/26/23 05:20 Baso % (Auto) 0.4 % 10/26/23 05:20 Neut # (Auto) 11.80 10^3/uL (1.8-7.7) H 10/26/23 05:20 Lymph # (Auto) 1.3 10^3/uL (0.8-4.8) 10/26/23 05:20 [place] # (Auto) 0.6 10^3/uL (0.2-0.9) 10/26/23 05:20 Eos # (Auto) 0.4 10^3/uL (0.0-0.8) 10/26/23 05:20 Baso # (Auto) 0.1 10^3/uL (0.0-0.1) 10/26/23 05:20 Nucleated RBC % (auto) 0 % 10/26/23 05:20 Nucleated RBCs # 0.0 /100WBC 10/26/23 05:20 Sodium 133 mmol/L (136-145) L 10/26/23 05:20 Potassium 4.5 mmol/L (3.5-5.1) 10/26/23 05:20 Chloride 99 mmol/L (98-107) 10/26/23 05:20 Carbon Dioxide 21 mmol/L (22-29) L 10/26/23 05:20 Anion Gap 17.5 (5-19) 10/26/23 05:20 BUN 24 mg/dL (6-20) H 10/26/23 05:20 Creatinine 1.9 mg/dL (0.5-0.9) H 10/26/23 05:20 GFR Calculation 27.2 mL/min (90-130) L 10/26/23 05:20 Glucose 141 mg/dL (65-115) H 10/26/23 05:20 POC Glucose 133 mg/dL (70-110) H 10/26/23 05:49 Calculated Osmolality 282 mOsm/kg (285-295) L 10/26/23 05:20 Lactic Acid 1.5 mmol/L (0.5-2.2) 10/26/23 05:20 Calcium 8.9 mg/dL (8.5-10.5) 10/26/23 05:20 Total Bilirubin 0.7 mg/dL (0.15-1.2) 10/26/23 05:20 AST 15 U/L (0-32) 10/26/23 05:20 ALT 10 U/L (0-33) 10/26/23 05:20 Alkaline Phosphatase 139 U/L (35-105) H 10/26/23 05:20 Total Protein 7.5 g/dL (6.6-8.7) 10/26/23 05:20 Albumin 3.4 g/dL (3.5-5.2) L 10/26/23 05:20 Globulin 4.1 g/dL (1.3-4.6) 10/26/23 05:20 Procalcitonin 0.16 ng/mL (0-0.5) 10/26/23 05:20 Urine Color Yellow (Yellow) 10/26/23 06:01 Urine Appearance Clear (CLEAR) 10/26/23 06:01 Urine pH 5 (5-7) 10/26/23 06:01 Ur Specific [place] 1.020 (1.005-1.030) 10/26/23 06:01 Urine Protein Trace (Negative) 10/26/23 06:01 Urine Glucose (UA) Norm (Normal) 10/26/23 06:01 Urine Ketones Negative (Negative) 10/26/23 06:01 Urine Blood Trace (Negative) H 10/26/23 06:01 Urine Nitrate Negative (Negative) 10/26/23 06:01 Urine Bilirubin Neg (Negative) 10/26/23 06:01 Urine Urobilinogen 1 mg/dL (Negative) H 10/26/23 06:01 Ur Leukocyte Esterase Negative (Negative) 10/26/23 06:01 Urine RBC 0-4 /hpf (0-2) H 10/26/23 06:01 Urine WBC None /hpf (0-5) 10/26/23 06:01 Ur Squamous Epith Cells 0-4 /hpf (0-5) H 10/26/23 06:01 Amorphous Sediment Not Reportable 10/26/23 06:01 Urine Bacteria Trace /hpf (NONE) 10/26/23 06:01 Urine Mucus 2+ /hpf 10/26/23 06:01 All radiology interpretation(s) finalized by discharge EKG Data EKG 1: Interpretation: Twelve-lead EKG obtained at 526 reviewed at 530 demonstrates atrial fibrillation with significant motion artifact, ventricular rate 99, QRS duration 98, QT 363, QTc 419 does not appear that there is ST elevation or depression at present. Discharge Plan Discharge Patient Disposition: Home Clinical Impression: Altered mental status Condition: Stable Prescriptions: No Action (DME) Accu-Chek Guide test strips Strip See Rx Instructions .ROUTE .MEDSUPPLY Qty: 300 3RF Rx Instructions: blood sugar 3 times a day (DME) blood-glucose meter Kit See Rx Instructions .Route Qty: 1 0RF Rx Instructions: Check blood sugars 3 times a day gabapentin 300 mg capsule 300 mg PO TID@0500,1300,2100 pantoprazole 40 mg tablet,delayed release (DR/EC) 40 mg PO DAILY@0500 (DME) pen needle, diabetic [Lite Touch Insulin Pen [place]] 31 gauge x 3/16 needle See Rx Instructions .ROUTE .MEDSUPPLY Qty: 400 3RF Rx Instructions: uses 4 times a day (DME) lancets 21 gauge misc See Rx Instructions .Route Qty: 200 3RF Rx Instructions: Check BS 4 times a day. ondansetron HCl 4 mg tablet 4 mg PO Q6H PRN (Reason: Nausea And Vomiting) levothyroxine 25 mcg tablet 25 mcg PO DAILY@0500 sumatriptan succinate [Imitrex] 25 mg tablet 25 mg PO Q6H PRN (Reason: Migraine Headache) metoprolol tartrate 25 mg tablet 25 mg PO Q12H Eliquis 5 mg tablet 5 mg PO Q12H acetaminophen 325 mg Tablet 650 mg PO Q4H PRN (Reason: pain or elevated temp) benzonatate 100 mg capsule 100 mg PO QID PRN (Reason: Cough) morphine 15 mg tablet extended release 15 mg PO BID propranolol 20 mg Tablet 20 mg PO BID PRN (Reason: muscle spasms) bupropion HCl 150 mg tablet extended release 24 hr 450 mg PO DAILY duloxetine 60 mg capsule,delayed release(DR/EC) 60 mg PO DAILY armodafinil 50 mg tablet 50 mg PO DAILY nystatin [Nystop] 100,000 unit/gram powder 1 applic TOPICAL BID PRN (Reason: Rash) insulin aspart U-100 [Novolog U-100 Insulin aspart] 100 unit/mL solution See Rx Instructions .ROUTE .COMPLEX Qty: 130 0RF Rx Instructions: Inject, subcut, 3 times daily, after meals, based on mild dose sliding scale Seroquel 25 mg Tablet See Rx Instructions .ROUTE .COMPLEX Rx Instructions: TAKE 25 MG BY MOUTH DAILY FOR 14 DAYS FOR HALLUCINATIONS. Discharge Orders: Discharge ED (Routine); Ordered 10/26/23 Ordered By: Sonido Victoria Referrals: Ethan Ricci MD [Primary Care Provider] - 1 week Patient Instructions: Altered Mental Status (ED) Activity Restrictions/Additional Instructions: Your evaluation in ER did not show any acute cause of your altered mental status. Therefore please follow-up with your family practice physician within the next 7 days for further evaluation and treatment. 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 Morbid obesity Hyponatremia Hypertension Hoarding disorder with excessive acquisition Generalized anxiety disorder Major depressive disorder, recurrent severe without psychotic features COPD (chronic obstructive pulmonary disease) Oxygen dependent Chronic anticoagulation On hold due to vaginal bleeding Congestive heart failure Hypertension Hypothyroidism DELMIS (obstructive sleep apnea) Atrial fibrillation Surgical History History of dental surgery Status post biopsy of skin Family History Other CAD (coronary artery disease) Chronic kidney disease (CKD) Diabetes Hyperlipidemia Hypertension Lung disease Thyroid disease Social History Smoking and tobacco/nicotine status: former use of tobacco/nicotine Quit status (tobacco/nicotine): has quit using Year quit tobacco: 2006 [id number] Second hand smoke exposure: No Alcohol intake: never Substance/Drug Use: never Lives independently: Yes Household members: spouse Marital status: Marital status details: is wheelchair-bound, Current occupational status: disabled Pets and animals: Yes Do you think of yourself as: Straight/Heterosexual Current gender identity: Female Course 2 Vital Signs: Vital signs: Vital Signs Temperature 98.4 F 10/26/23 05:05 Pulse Rate 106 H 10/26/23 15:15 Respiratory Rate 13 10/26/23 15:15 Blood Pressure 133/87 10/26/23 15:15 Pulse Oximetry 95 10/26/23 15:15 Oxygen Delivery Me thod Room Air 10/26/23 13:52 Oxygen Flow Rate 5 10/26/23 06:34 MDM - Altered Mental Status Medical Decision Making I have discussed the patient's case with the on-coming physician <Dr. Victoria> and they have assumed care of the patient. We have discussed the current lab/radiographic results that have been resulted and the pending tests. Chest x-ray showed no acute abnormality as well as head CT which was negative. Lab work revealed very mildly elevated white count, BUN/creatinine elevated but stable at 24 and 1.9, with these lab results and imaging stable it is unknown why the patient is confused. Patient be discharged back to the facility for further evaluation and treatment. Lab Data 10/26/23 05:20 10/26/23 05:20 Radiology Impressions Chest X-Ray 10/26/23 05:05 IMPRESSION: Extremely limited study. No definite acute abnormality. Head CT 10/26/23 05:43 IMPRESSION: No acute intracranial abnormality. Laboratory Results WBC 14.22 10^3/uL (3.29-11.43) H 10/26/23 05:20 RBC 5.27 10^6/uL (3.85-5.65) 10/26/23 05:20 Hgb 12.50 g/dL (11.27-16.99) 10/26/23 05:20 Hct 42.8 % (36-47) 10/26/23 05:20 MCV 81.2 fl (85-98) L 10/26/23 05:20 MCH 23.7 pg (27-33) L 10/26/23 05:20 MCHC 29.2 g/dL (30-55) L 10/26/23 05:20 RDW 18.4 % (12.1-15.1) H 10/26/23 05:20 Plt Count 311 10^3/cmm (157-399) 10/26/23 05:20 MPV 11.5 fL (7.4-10.4) H 10/26/23 05:20 Neut % (Auto) 83.0 % 10/26/23 05:20 Lymph % (Auto) 9.0 % 10/26/23 05:20 [place] % (Auto) 4.4 % 10/26/23 05:20 Eos % (Auto) 2.7 % 10/26/23 05:20 Baso % (Auto) 0.4 % 10/26/23 05:20 Neut # (Auto) 11.80 10^3/uL (1.8-7.7) H 10/26/23 05:20 Lymph # (Auto) 1.3 10^3/uL (0.8-4.8) 10/26/23 05:20 [place] # (Auto) 0.6 10^3/uL (0.2-0.9) 10/26/23 05:20 Eos # (Auto) 0.4 10^3/uL (0.0-0.8) 10/26/23 05:20 Baso # (Auto) 0.1 10^3/uL (0.0-0.1) 10/26/23 05:20 Nucleated RBC % (auto) 0 % 10/26/23 05:20 Nucleated RBCs # 0.0 /100WBC 10/26/23 05:20 Sodium 133 mmol/L (136-145) L 10/26/23 05:20 Potassium 4.5 mmol/L (3.5-5.1) 10/26/23 05:20 Chloride 99 mmol/L (98-107) 10/26/23 05:20 Carbon Dioxide 21 mmol/L (22-29) L 10/26/23 05:20 Anion Gap 17.5 (5-19) 10/26/23 05:20 BUN 24 mg/dL (6-20) H 10/26/23 05:20 Creatinine 1.9 mg/dL (0.5-0.9) H 10/26/23 05:20 GFR Calculation 27.2 mL/min (90-130) L 10/26/23 05:20 Glucose 141 mg/dL (65-115) H 10/26/23 05:20 POC Glucose 133 mg/dL (70-110) H 10/26/23 05:49 Calculated Osmolality 282 mOsm/kg (285-295) L 10/26/23 05:20 Lactic Acid 1.5 mmol/L (0.5-2.2) 10/26/23 05:20 Calcium 8.9 mg/dL (8.5-10.5) 10/26/23 05:20 Total Bilirubin 0.7 mg/dL (0.15-1.2) 10/26/23 05:20 AST 15 U/L (0-32) 10/26/23 05:20 ALT 10 U/L (0-33) 10/26/23 05:20 Alkaline Phosphatase 139 U/L (35-105) H 10/26/23 05:20 Total Protein 7.5 g/dL (6.6-8.7) 10/26/23 05:20 Albumin 3.4 g/dL (3.5-5.2) L 10/26/23 05:20 Globulin 4.1 g/dL (1.3-4.6) 10/26/23 05:20 Procalcitonin 0.16 ng/mL (0-0.5) 10/26/23 05:20 Urine Color Yellow (Yellow) 10/26/23 06:01 Urine Appearance Clear (CLEAR) 10/26/23 06:01 Urine pH 5 (5-7) 10/26/23 06:01 Ur Specific [place] 1.020 (1.005-1.030) 10/26/23 06:01 Urine Protein Trace (Negative) 10/26/23 06:01 Urine Glucose (UA) Norm (Normal) 10/26/23 06:01 Urine Ketones Negative (Negative) 10/26/23 06:01 Urine Blood Trace (Negative) H 10/26/23 06:01 Urine Nitrate Negative (Negative) 10/26/23 06:01 Urine Bilirubin Neg (Negative) 10/26/23 06:01 Urine Urobilinogen 1 mg/dL (Negative) H 10/26/23 06:01 Ur Leukocyte Esterase Negative (Negative) 10/26/23 06:01 Urine RBC 0-4 /hpf (0-2) H 10/26/23 06:01 Urine WBC None /hpf (0-5) 10/26/23 06:01 Ur Squamous Epith Cells 0-4 /hpf (0-5) H 10/26/23 06:01 Amorphous Sediment Not Reportable 10/26/23 06:01 Urine Bacteria Trace /hpf (NONE) 10/26/23 06:01 Urine Mucus 2+ /hpf 10/26/23 06:01 Discharge Plan Discharge Patient Disposition: Home Clinical Impression: Altered mental status Condition: Stable Prescriptions: No Action (DME) Accu-Chek Guide test strips Strip See Rx Instructions .ROUTE .MEDSUPPLY Qty: 300 3RF Rx Instructions: blood sugar 3 times a day (DME) blood-glucose meter Kit See Rx Instructions .Route Qty: 1 0RF Rx Instructions: Check blood sugars 3 times a day gabapentin 300 mg capsule 300 mg PO TID@0500,1300,2100 pantoprazole 40 mg tablet,delayed release (DR/EC) 40 mg PO DAILY@0500 (DME) pen needle, diabetic [Lite Touch Insulin Pen [place]] 31 gauge x 3/16 needle See Rx Instructions .ROUTE .MEDSUPPLY Qty: 400 3RF Rx Instructions: uses 4 times a day (DME) lancets 21 gauge misc See Rx Instructions .Route Qty: 200 3RF Rx Instructions: Check BS 4 times a day. ondansetron HCl 4 mg tablet 4 mg PO Q6H PRN (Reason: Nausea And Vomiting) levothyroxine 25 mcg tablet 25 mcg PO DAILY@0500 sumatriptan succinate [Imitrex] 25 mg tablet 25 mg PO Q6H PRN (Reason: Migraine Headache) metoprolol tartrate 25 mg tablet 25 mg PO Q12H Eliquis 5 mg tablet 5 mg PO Q12H acetaminophen 325 mg Tablet 650 mg PO Q4H PRN (Reason: pain or elevated temp) benzonatate 100 mg capsule 100 mg PO QID PRN (Reason: Cough) morphine 15 mg tablet extended release 15 mg PO BID propranolol 20 mg Tablet 20 mg PO BID PRN (Reason: muscle spasms) bupropion HCl 150 mg tablet extended release 24 hr 450 mg PO DAILY duloxetine 60 mg capsule,delayed release(DR/EC) 60 mg PO DAILY armodafinil 50 mg tablet 50 mg PO DAILY nystatin [Nystop] 100,000 unit/gram powder 1 applic TOPICAL BID PRN (Reason: Rash) insulin aspart U-100 [Novolog U-100 Insulin aspart] 100 unit/mL solution See Rx Instructions .ROUTE .COMPLEX Qty: 130 0RF Rx Instructions: Inject, subcut, 3 times daily, after meals, based on mild dose sliding scale Seroquel 25 mg Tablet See Rx Instructions .ROUTE .COMPLEX Rx Instructions: TAKE 25 MG BY MOUTH DAILY FOR 14 DAYS FOR HALLUCINATIONS. Discharge Orders: Discharge ED (Routine); Ordered 10/26/23 Ordered By: Sonido Victoria Referrals: Ethan Ricci MD [Primary Care Provider] - 1 week Patient Instructions: Altered Mental Status (ED) Activity Restrictions/Additional Instructions: Your evaluation in ER did not show any acute cause of your altered mental status. Therefore please follow-up with your family practice physician within the next 7 days for further evaluation and treatment. Coding Level of Care Code ED Coordinator Of Library Services for Tanner Chavez
--- NOTE | 2023-10-26 05:05 | XRR_ITS ---
PROCEDURE INFORMATION: Exam: XR Chest Exam date and time: 10/26/2023 5:34 AM Age: 58 years old Clinical indication: Other: AMS TECHNIQUE: Imaging protocol: Radiologic exam of the chest. Views: 1 view. COMPARISON: CT chest [facility] [id number] 10/19/2023 11:06 AM FINDINGS: Lungs: Unremarkable. No consolidation. Pleural spaces: Unremarkable. No pleural effusion. No pneumothorax. Heart/Mediastinum: Unremarkable. No cardiomegaly. Bones/joints: Unremarkable. Soft tissues: The study is limited by the patient's body habitus and suboptimal positioning. XR/XR chest 1V portable [id number] IMPRESSION: Extremely limited study. No definite acute abnormality.
--- NOTE | 2023-10-26 05:26 | ECG_ITS ---
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 Measurements Intervals [place] Rate: 99 P: 0 WV: 0 QRS: 142 QRSD: 98 T: 65 QT: 363 QTc: 467 Interpretive Statements ATRIAL FIBRILLATION PATTERN CONSISTENT WITH PULMONARY DISEASE POSSIBLE RIGHT VENTRICULAR HYPERTROPHY [SOME/ALL OF: PROMINENT R IN V1, LATE TRANSITION, RAD, [place], SSS] MINIMAL ST DEPRESSION [0.025+ mV ST DEPRESSION] Compared to ECG 10/10/2023 15:56:15 ST (T wave) deviation now present Electronically Signed On 10-26-2023 12:28:41 CDT by Sathya Sellers M.D. [email or web address]
[2023-10-26 05:39] LABS: Basophils # 0.1 10^3/uL (0.0-0.1); Basophils % 0.4 %; Eosinophils # 0.4 10^3/uL (0.0-0.8); Eosinophils % 2.7 %; Hematocrit 42.8 % (36-47); Lymphocytes # 1.3 10^3/uL (0.8-4.8); Mean Corpuscular HGB Conc 29.2 g/dL (30-55); Mean Corpuscular Hemoglobin 23.7 pg (27-33); Mean Corpuscular Volume 81.2 fl (85-98); Mean Platelet Volume 11.5 fL (7.4-10.4); Monocytes # 0.6 10^3/uL (0.2-0.9); Monocytes % 4.4 %; Nucleated Red Blood Cells % 0 %; Platelet Count 311 10^3/cmm (157-399); Red Blood Count 5.27 10^6/uL (3.85-5.65); Red Cell Distribution Width 18.4 % (12.1-15.1); White Blood Count 14.22 10^3/uL (3.29-11.43)
--- NOTE | 2023-10-26 05:43 | CTR_ITS ---
PROCEDURE INFORMATION: Exam: CT Head Without Contrast Exam date and time: 10/26/2023 6:13 AM Age: 58 years old Clinical indication: Altered mental status/memory loss TECHNIQUE: Imaging protocol: Computed tomography of the head without contrast. Radiation optimization: All CT scans at this facility use at least one of these dose optimization techniques: automated exposure control; mA and/or kV adjustment per patient size (includes targeted exams where dose is matched to clinical indication); or iterative reconstruction. COMPARISON: CT head wo con* [id number] 10/10/2023 6:48 AM RADIATION DOSE METRICS: Total DLP (mGy-cm): 1235 FINDINGS: Brain: Normal. No hemorrhage. Unremarkable white matter. No mass effect. Cerebral ventricles: No ventriculomegaly. Paranasal sinuses: Visualized sinuses are unremarkable. No fluid levels. Mastoid air cells: Visualized mastoid air cells are well aerated. Bones/joints: Unremarkable. No acute fracture. Soft tissues: Unremarkable. CT/CT head wo con* [id number] IMPRESSION: No acute intracranial abnormality.
[2023-10-26 05:58] LABS: Alanine Aminotransferase 10 U/L (0-33); Albumin Level 3.4 g/dL (3.5-5.2); Alkaline Phosphatase 139 U/L (35-105); Blood Urea Nitrogen 24 mg/dL (6-20); Calcium 8.9 mg/dL (8.5-10.5); Carbon Dioxide 21 mmol/L (22-29); Chloride 99 mmol/L (98-107); Creatinine Clr Calc Pharmacy 55.1052; Globulin 4.1 g/dL (1.3-4.6); Glomerular Filtration Rate 27.2 mL/min (90-130); Glucose 141 mg/dL (65-115); Osmolality Calculated 282 mOsm/kg (285-295); Sodium 133 mmol/L (136-145); Total Bilirubin 0.7 mg/dL (0.15-1.2); Total Protein 7.5 g/dL (6.6-8.7)
[2023-10-26 05:59] LABS: Lactic Sepsis W/Reflex 1.5 mmol/L (0.5-2.2)
[2023-10-26 06:01] LABS: Anion Gap 17.5 (5-19); Aspartate Amino Transferase 15 U/L (0-32); Potassium 4.5 mmol/L (3.5-5.1)
[2023-10-26 06:03] LABS: Glucose Point of Care 133 mg/dL (70-110)
[2023-10-26 06:05] LABS: Procalcitonin 0.16 ng/mL (0-0.5)
[2023-10-26 06:15] LABS: Add Urine Microscopic? YES; Bilirubin Urine Neg (Negative); Blood Urine Trace (Negative); Glucose Urine UA Norm (Normal); Ketones Urine Negative (Negative); Leukocyte Esterase Urine Negative (Negative); Nitrate Urine Negative (Negative); Protein Urine Trace (Negative); Urine Appearance Clear (CLEAR); Urine Color Yellow (Yellow); Urobilinogen Urine 1 mg/dL (Negative); pH Urine 5 (5-7)
[2023-10-26 06:16] LABS: Add Urine Culture? No; Bacteria Urine TRACE /hpf; Mucus Urine 2+ /hpf; RBC Urine 0-4 /hpf (0-2); Squamous Epithelial Cell Urine 0-4 /hpf (0-5)
--- NOTE | 2023-10-27 02:37 | PC.NURSE ---
pt support person called about pt dx around shift change. pt educated that pt was taken back to group home and report was called there. also informed that there was no findings for her acute condition and she has to follow up with her pcp.
== END 2023-10-26 16:00 | disposition home or self-care (01) ==
PROVIDERS: Emergency Provider Internal Medicine; PCP Internal Medicine
DX: R41.82 Altered mental status, unspecified (principal); Z79.01 Long term (current) use of anticoagulants; Z79.4 Long term (current) use of insulin; Z87.891 Personal history of nicotine dependence; E11.22 Type 2 diabetes mellitus with diabetic chronic kidney disease; I13.0 Hypertensive heart and chronic kidney disease with heart failure and stage 1 through stage 4 chronic kidney disease, or unspecified chronic kidney disease; N18.4 Chronic kidney disease, stage 4 (severe); I50.9 Heart failure, unspecified; J44.9 Chronic obstructive pulmonary disease, unspecified; Z99.81 Dependence on supplemental oxygen
CPT/HCPCS: 36415; 36416; 51702; 70450; 71045; 80053; 81001; 82962; 83605; 84145; 85025; 87040; 93005; 99285

== ENCOUNTER → 2023-12-08 08:42 | Outpatient (BNVA) | payer MEDICARE, MEDICAID, SELFPAY | PROVIDERS: PCP Internal Medicine; Visit Provider Internal Medicine | DX: E11.40 Type 2 diabetes mellitus with diabetic neuropathy, unspecified; E11.65 Type 2 diabetes mellitus with hyperglycemia; E11.22 Type 2 diabetes mellitus with diabetic chronic kidney disease; I12.9 Hypertensive chronic kidney disease with stage 1 through stage 4 chronic kidney disease, or unspecified chronic kidney disease; N18.4 Chronic kidney disease, stage 4 (severe); E66.01 Morbid (severe) obesity due to excess calories; E03.9 Hypothyroidism, unspecified; E78.2 Mixed hyperlipidemia; Z79.4 Long term (current) use of insulin; Z68.43 Body mass index [BMI] 50.0-59.9, adult; Z79.890 Hormone replacement therapy | CPT/HCPCS: 99214 ==

== ENCOUNTER → 2023-12-20 08:38 | Outpatient (BNVA) | payer MEDICARE, MEDICAID, SELFPAY | PROVIDERS: PCP Internal Medicine; Visit Provider Podiatrist Foot & Ankle Surgery | DX: L60.3 Nail dystrophy (principal); N18.9 Chronic kidney disease, unspecified; G62.9 Polyneuropathy, unspecified; L97.522 Non-pressure chronic ulcer of other part of left foot with fat layer exposed; E11.42 Type 2 diabetes mellitus with diabetic polyneuropathy; E11.621 Type 2 diabetes mellitus with foot ulcer; Z79.4 Long term (current) use of insulin | CPT/HCPCS: 11721; 99203 ==

== ENCOUNTER → 2024-01-04 08:17 | Outpatient (BNVA) | payer MEDICARE, MEDICAID, SELFPAY | PROVIDERS: PCP Internal Medicine; Visit Provider Podiatrist Foot & Ankle Surgery | DX: L97.522 Non-pressure chronic ulcer of other part of left foot with fat layer exposed (principal); L60.3 Nail dystrophy; N18.9 Chronic kidney disease, unspecified; G62.9 Polyneuropathy, unspecified; E11.621 Type 2 diabetes mellitus with foot ulcer; E11.42 Type 2 diabetes mellitus with diabetic polyneuropathy; Z79.4 Long term (current) use of insulin | CPT/HCPCS: 99213 ==

== ENCOUNTER 2024-03-07 10:36 | Outpatient (CLI) | payer MEDICARE, MEDICAID, SELFPAY ==
--- NOTE | 2024-03-07 10:47 | MM_ITS ---
WS: [id number] BILATERAL 3D TOMOSYNTHESIS DIGITAL SCREENING MAMMOGRAPHY WITH CAD CLINICAL INFORMATION: SCREENING HISTORY: Screening mammogram. No current complaints. COMPARISON: 2014 TECHNIQUE: Bilateral CC and MLO views. FINDINGS: The breasts are composed of heterogeneous fibroglandular density tissue, which can limit the detectio n of small underlying mass lesions. No suspicious mass, asymmetry, calcifications, or architectural d istortion. No evidence of malignancy. Dense breast tissue upper outer LEFT breast with a few intramam zan lymph nodes. Calcified nodule LEFT breast anteriorly is stable. MM/[place] [id number] IMPRESSION: DENSITY:The breasts are heterogeneously dense, which may obscure small masses. BI-RADS: 2 - Benign FOLLOW UP: 1 Year Follow-up Recommend return to annual screening mammography.
== END 2024-03-07 10:37 | disposition home or self-care (01) ==
LOC: RAD 10:37
PROVIDERS: PCP Internal Medicine; Visit Provider Internal Medicine
DX: E11.40 Type 2 diabetes mellitus with diabetic neuropathy, unspecified (principal); E11.65 Type 2 diabetes mellitus with hyperglycemia; E03.9 Hypothyroidism, unspecified; E78.2 Mixed hyperlipidemia; E11.22 Type 2 diabetes mellitus with diabetic chronic kidney disease; I12.9 Hypertensive chronic kidney disease with stage 1 through stage 4 chronic kidney disease, or unspecified chronic kidney disease; N18.4 Chronic kidney disease, stage 4 (severe); E66.01 Morbid (severe) obesity due to excess calories; Z79.4 Long term (current) use of insulin; Z79.890 Hormone replacement therapy; Z79.85 Long-term (current) use of injectable non-insulin antidiabetic drugs; Z68.43 Body mass index [BMI] 50.0-59.9, adult; Z12.31 Encounter for screening mammogram for malignant neoplasm of breast; L60.3 Nail dystrophy
CPT/HCPCS: 11721; 36415; 77063; 77067; 80053; 80061; 82044; 83036; 84439; 84443; 99214

== ENCOUNTER → 2024-05-09 08:47 | Outpatient (BNVA) | payer MEDICARE, MEDICAID, SELFPAY | PROVIDERS: PCP Internal Medicine; Visit Provider Podiatrist Foot & Ankle Surgery | DX: M10.9 Gout, unspecified; L60.3 Nail dystrophy; N18.9 Chronic kidney disease, unspecified; G62.9 Polyneuropathy, unspecified; E11.69 Type 2 diabetes mellitus with other specified complication; M25.474 Effusion, right foot; Z79.4 Long term (current) use of insulin | CPT/HCPCS: 11721; 20550; 20600; J1100; J3490 ==

== ENCOUNTER → 2024-07-26 09:39 | Outpatient (BNVA) | payer MEDICARE, MEDICAID, SELFPAY | PROVIDERS: PCP Internal Medicine; Visit Provider Podiatrist Foot & Ankle Surgery | DX: M10.9 Gout, unspecified (principal); E11.42 Type 2 diabetes mellitus with diabetic polyneuropathy; L60.3 Nail dystrophy; N18.9 Chronic kidney disease, unspecified; G62.9 Polyneuropathy, unspecified; Z79.4 Long term (current) use of insulin | CPT/HCPCS: 11721; 20600; J1100 ==

== ENCOUNTER 2024-08-10 19:36 | Emergency (ER) | payer MEDICARE, MEDICAID, SELFPAY ==
[2024-08-10] VITALS (7 sets, daily range): BP systolic 130–150; BP diastolic 89–99; PULSE 77–94; RESP 15–20; TEMP 36.6; O2SAT 88–100
--- NOTE | 2024-08-10 19:40 | XRR_ITS ---
PROCEDURE INFORMATION: Exam: XR Chest Exam date and time: 08/10/2024 8:14 PM Age: 59 years old Clinical indication: Pain; Chest pressure; Additional info: Shortness of breath TECHNIQUE: Imaging protocol: Radiologic exam of the chest. Views: 1 view. COMPARISON: CR (CHEST, ) 10/26/2023 5:34 AM FINDINGS: Lungs: Mild pulmonary edema. Pleural spaces: Small layering bilateral pleural effusions with atelectasis. Heart/Mediastinum: Moderately enlarged pericardial silhouette. Bones/joints: Unremarkable. XR/XR chest 1V portable [id number] IMPRESSION: 1. Mild pulmonary edema. 2. Small pleural effusions. 3. Enlarged pericardial silhouette.
--- NOTE | 2024-08-10 19:44 | ECG_ITS ---
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 [email or web address]
--- NOTE | 2024-08-10 19:48 | ED_ITS ---
Documented by User: Lexie Key MD 08/10/24 19:55 HPI - SOB/Dyspnea 2 General: Chief Complaint: Shortness of Breath/Dyspnea Stated Complaint: SOB, CP Time Seen by Provider: 08/10/24 19:37 History of Present Illness: HPI Narrative: 59-year-old female with a history of mor bid obesity, COPD, chronic hypoxemic respiratory failure on 3 to 4 L nasal cannula at all times, hypertension, type 2 diabetes with stage IV chronic kidney disease, obstructive sleep apnea and atrial fibrillation on chronic anticoagulation with Eliquis who presents emergency room with shortness of breath and chest pain. She is slightly somnolent. Lung sounds are diminished. EMS had her on BiPAP and reports that she was profoundly hypoxic when they picked her up. No known fevers. Duration of symptoms is unknown. She is a full code. Related Data Home Medications Medication Instructions Recorded Confirmed gabapentin 300 mg capsule 300 mg PO TID@0500,1300,2100 10/05/19 08/08/24 levothyroxine 25 mcg tablet 25 mcg PO DAILY@0500 03/03/20 08/08/24 ondansetron HCl 4 mg tablet 4 mg PO Q6H PRN Nausea And Vomiting 03/03/20 08/08/24 apixaban 5 mg tablet (Eliquis) 5 mg PO Q12H 06/18/20 08/08/24 pantoprazole 40 mg tablet,delayed 40 mg PO DAILY@0500 06/18/20 08/08/24 release sumatriptan succinate 25 mg tablet 25 mg PO Q6H PRN Migraine Headache 06/18/20 08/08/24 (Imitrex) acetaminophen 325 mg tablet 650 mg PO Q4H PRN pain or elevated 10/10/23 08/08/24 temp benzonatate 100 mg capsule 100 mg PO QID PRN Cough 10/10/23 08/08/24 duloxetine 60 mg capsule,delayed 60 mg PO DAILY 10/10/23 08/08/24 release morphine 15 mg tablet,extended 15 mg PO BID 10/10/23 08/08/24 release albuterol sulfate 1.25 mg/3 mL 2.5 mg inhalation QID 08/08/24 08/08/24 solution for nebulization cetirizine 10 mg tablet 10 mg PO DAILY PRN 08/08/24 08/08/24 guaifenesin 600 mg tablet, 600 mg PO Q12H PRN 08/08/24 08/08/24 extended release 12 hr metoprolol succinate 100 mg 100 mg PO DAILY 08/08/24 08/08/24 tablet,extended release 24 hr peg 400-propylene glycol 0.4 %-0.3 1 drp ophthalmic (eye) DAILY PRN 08/08/24 08/08/24 % eye drops (Systane (propylene glycol)) semaglutide 1 mg/dose (4 mg/3 mL) 1 mg SUBCUT .weekly 08/08/24 08/08/24 subcutaneous pen injector (Ozempic) topiramate 50 mg capsule,extended 50 mg PO DAILY 08/08/24 08/08/24 release 24 hr Previous Rx's Medication Instructions Recorded insulin aspart U-100 100 unit/mL See Rx Instructions .Route 10/11/23 subcutaneous solution (Novolog .COMPLEX #130 mL U-100 Insulin aspart) blood-glucose meter,continuous #1 ea 12/08/23 (Dexcom G7 Enrollment Coordinator) blood-glucose sensor (Dexcom G7 #3 ea 12/08/23 Sensor device) diabetic shoes w/ 3 inserts #1 ea 12/20/23 Allergies Allergy/AdvReac Type Severity Reaction Status Date / Time Tetracyclines Allergy Severe ALGY-Anaphy Verified 08/08/24 15:25 laxis wool Allergy Intermediate ALGY-Hives Verified 08/08/24 15:25 mushroom Allergy Unknown Verified 08/08/24 15:25 adhesive AdvReac Unknown Verified 08/08/24 15:25 Artificial Sweetners AdvReac Intermediate ADR-Headach Uncoded 08/08/24 15:25 e Review of Systems 2 Narrative: Constitutional symptoms: Negative except as documented in HPI. Skin symptoms: Negative except as documented in HPI. Eye symptoms: Negative except as documented in HPI. ENMT symptoms: Negative except as documented in HPI. Respiratory symptoms: Negative except as documented in HPI. Cardiovascular symptoms: Negative except as documented in HPI. Gastrointestinal symptoms: Negative except as documented in HPI. Genitourinary symptoms: Negative except as documented in HPI. Musculoskeletal symptoms: Negative except as documented in HPI. Neurologic symptoms: Negative except as documented in HPI. Psychiatric symptoms: Negative except as documented in HPI. Endocrine symptoms: Negative except as documented in HPI. PFSH ED 2 PFSH: Medical History (Updated 08/10/24 @ 23:53 by Sonido Victoria DO) Renovascular hypertension Acute paronychia of finger of left hand 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 Morbid obesity Hyponatremia Hypertension Hoarding disorder with excessive acquisition Generalized anxiety disorder Major depressive disorder, recurrent severe without psychotic features COPD (chronic obstructive pulmonary disease) Oxygen dependent Chronic anticoagulation On hold due to vaginal bleeding Congestive heart failure Hypertension Hypothyroidism DELMIS (obstructive sleep apnea) Atrial fibrillation Surgical History Status post biopsy of skin History of dental surgery Family History Other CAD (coronary artery disease) Chronic kidney disease (CKD) Diabetes Hyperlipidemia Hypertension Lung disease Thyroid disease Social History (Updated 08/08/24 @ 15:36 by CORI Alicia) Smoking and tobacco/nicotine status: unknown if used tobacco/nicotine Quit status (tobacco/nicotine): has quit using Year quit tobacco: 2006 [id number] Second hand smoke exposure: No Alcohol intake: never Substance/Drug Use: never Lives independently: No Housing: Residential Marital status: Marital status details: is wheelchair-bound, Current occupational status: disabled Do you think of yourself as: Straight/Heterosexual Current gender identity: Female Physical Exam 2 Narrative: EXAM NARRATIVE: General: Alert, appears ill and in some distress. Morbidly obese. Skin: Warm, dry. Head: Normocephalic, atraumatic. Neck: Supple, trachea midline. Eye: Extraocular movements are intact. Ears, nose, mouth and throat: Tacky oral mucosa Cardiovascular: Regular, Normal peripheral perfusion. Respiratory: Diminished breath sounds in both lung bases. She is currently requiring just 3 to 4 L nasal cannula which is her baseline. Gastrointestinal: Soft, Nontender, Non distended Musculoskeletal: Normal ROM, no deformity. Neurological: Somnolent but arousable, answer some questions appropriately but is a bit groggy, No focal neurological deficit observed. Psychiatric: Unable to assess fully Course 2 Vital Signs: Vital signs: Vital Signs Temperature 97.9 F 08/10/24 19:43 Pulse Rate 89 08/10/24 23:22 Respiratory Rate 15 08/10/24 23:22 Blood Pressure 140/96 08/10/24 23:22 Pulse Oximetry 99 08/10/24 23:22 Oxygen Delivery Me thod Room Air 08/10/24 23:22 Oxygen Flow Rate 2 08/10/24 22:38 MDM - SOB/Dyspnea Medical Decision Making Differential diagnosis for patient with shortness of breath includes but is not limited to and based on the above HPI, review of systems and physical exam: Pneumonia. Bronchitis. Asthma or COPD with acute exacerbation. Acute coronary syndrome / OK. Pulmonary embolism. Anxiety. Congestive heart failure. Viral infections including influenza and Covid-19. Atrial fibrillation. Anxiety. Pleural effusion. Pneumothorax. Orders placed to evaluate differential diagnosis based on the above differential, HPI and physical exam EKG: Time 1943. Rate 96. Atrial fibrillation with controlled rate, No ST-T changes, no ectopy, This was reviewed and interpreted by myself the ER physician at 1946 Lab Review: Laboratory results were reviewed and interpreted by myself the emergency room physician. I reviewed the patient's medical record. Reexamination: Lab Data 08/10/24 20:35 08/10/24 20:35 Labs/Radiology: Radiology Impressions Chest X-Ray 08/10/24 19:40 IMPRESSION: 1. Mild pulmonary edema. 2. Small pleural effusions. 3. Enlarged pericardial silhouette. Laboratory Results WBC 11.49 10^3/uL (3.29-11.43) H 08/10/24 20:35 RBC 5.19 10^6/uL (3.85-5.65) 08/10/24 20:35 Hgb 12.80 g/dL (11.27-16.99) 08/10/24 20:35 Hct 44.4 % (36-47) 08/10/24 20:35 MCV 85.5 fl (85-98) 08/10/24 20:35 MCH 24.7 pg (27-33) L 08/10/24 20:35 MCHC 28.8 g/dL (30-55) L 08/10/24 20:35 RDW 17.4 % (12.1-15.1) H 08/10/24 20:35 Plt Count 269 10^3/cmm (157-399) 08/10/24 20:35 MPV 11.2 fL (7.4-10.4) H 08/10/24 20:35 Neut % (Auto) 81.1 % 08/10/24 20:35 Lymph % (Auto) 10.2 % 08/10/24 20:35 Osborne % (Auto) 5.8 % 08/10/24 20:35 Eos % (Auto) 2.0 % 08/10/24 20:35 Baso % (Auto) 0.4 % 08/10/24 20:35 Neut # (Auto) 9.31 10^3/uL (1.8-7.7) H 08/10/24 20:35 Lymph # (Auto) 1.2 10^3/uL (0.8-4.8) 08/10/24 20:35 Osborne # (Auto) 0.7 10^3/uL (0.2-0.9) 08/10/24 20:35 Eos # (Auto) 0.2 10^3/uL (0.0-0.8) 08/10/24 20:35 Baso # (Auto) 0.1 10^3/uL (0.0-0.1) 08/10/24 20:35 Nucleated RBC % (auto) 0 % 08/10/24 20:35 Nucleated RBCs # 0.0 /100WBC 08/10/24 20:35 Specimen Type Arterial 08/10/24 19:40 Sample Site Brachial, right 08/10/24 19:40 ABG pH 7.32 (7.35-7.45) L 08/10/24 19:40 ABG pCO2 39.8 mmHg (35-45) 08/10/24 19:40 ABG pO2 93.0 mmHg (80.0-100.0) 08/10/24 19:40 ABG HCO3 20.5 mmol/L (22-26) L 08/10/24 19:40 ABG O2 Saturation 95.8 08/10/24 19:40 ABG Base Excess -5.2 mmol/L (-2.0-2.0) L 08/10/24 19:40 Elian Test Pos 08/10/24 19:40 A-a O2 Gradient 0.6 mmHg (5-10) L 08/10/24 19:40 Hematocrit 39.8 % (37-47) 08/10/24 19:40 Hgb O2 Saturation 94.2 % (95-100) L 08/10/24 19:40 Carboxyhemoglobin 0.6 %THgb (0.4-20.1) 08/10/24 19:40 Methemoglobin 1.1 % (0.4-1.5) 08/10/24 19:40 Total Hemoglobin 13.0 g/dL (12-16) 08/10/24 19:40 Sodium 136.0 mmol/L (131-143) 08/10/24 19:40 Potassium 4.6 mmol/L (3.5-5.0) 08/10/24 19:40 Glucose 188.0 mg/dL (70-115) H 08/10/24 19:40 Ionized Calcium 1.2 mmol/L (1.1-1.4) 08/10/24 19:40 O2 Delivery Device Nc 08/10/24 19:40 O2 Liters/Min 3.0 % 08/10/24 19:40 Community Support Professional ID [email or web address] 08/10/24 19:40 Sodium 133 mmol/L (136-145) L 08/10/24 20:35 Potassium 5.0 mmol/L (3.5-5.1) 08/10/24 20:35 Chloride 99 mmol/L (98-107) 08/10/24 20:35 Carbon Dioxide 21 mmol/L (22-29) L 08/10/24 20:35 Anion Gap 18.0 (5-19) 08/10/24 20:35 BUN 25 mg/dL (6-20) H 08/10/24 20:35 Creatinine 1.9 mg/dL (0.5-0.9) H 08/10/24 20:35 GFR Calculation 27.1 mL/min (90-130) L 08/10/24 20:35 Glucose 148 mg/dL (65-115) H 08/10/24 20:35 Calculated Osmolality 283 mOsm/kg (285-295) L 08/10/24 20:35 Lactic Acid 1.9 mmol/L (0.5-2.2) 08/10/24 20:35 Calcium 8.8 mg/dL (8.5-10.5) 08/10/24 20:35 Total Bilirubin 0.8 mg/dL (0.15-1.2) 08/10/24 20:35 AST 16 U/L (0-32) 08/10/24 20:35 ALT 13 U/L (0-33) 08/10/24 20:35 Alkaline Phosphatase 188 U/L (35-105) H 08/10/24 20:35 Troponin T Baseline 57 ng/L (0-10) H 08/10/24 20:15 Troponin T 120 Minute 54.27 ng/L (0-10) H 08/10/24 22:15 Delta Troponin T -2.73 ABS# (0-10) L 08/10/24 22:15 C-Reactive Protein 42.8 mg/L (0.0-4.9) H 08/10/24 20:35 NT-Pro-B Natriuret Pep 1510 pg/mL (0-125) H 08/10/24 20:35 Total Protein 7.2 g/dL (6.6-8.7) 08/10/24 20:35 Albumin 3.5 g/dL (3.5-5.2) 08/10/24 20:35 Globulin 3.7 g/dL (1.3-4.6) 08/10/24 20:35 Coronavirus (PCR) Negative (Negative) 08/10/24 20:15 Influenza A (PCR) Negative (Negative) 08/10/24 20:15 Influenza Type B (PCR) Negative (Negative) 08/10/24 20:15 RSV (PCR) Negative (Negative) 08/10/24 20:15 Discharge Plan Discharge Patient Disposition: Home Clinical Impression: Chronic shortness of breath Chronic kidney insufficiency Qualifiers: Chronic kidney disease stage: unspecified stage Qualified Code(s): N18.9 - Chronic kidney disease, unspecified Condition: Stable Prescriptions: No Action gabapentin 300 mg capsule 300 mg PO TID@0500,1300,2100 pantoprazole 40 mg tablet,delayed release (DR/EC) 40 mg PO DAILY@0500 (DME) Dexcom G7 Sensor Device See Rx Instructions .Route Qty: 3 3RF Rx Instructions: As directed (DME) Dexcom G7 Enrollment Coordinator Misc See Rx Instructions .Route Qty: 1 0RF Rx Instructions: As directed (DME) diabetic shoes w/ 3 inserts See Rx Instructions .Route .MEDSUPPLY Qty: 1 0RF Rx Instructions: As directed cetirizine 10 mg tablet 10 mg PO DAILY PRN albuterol sulfate 1.25 mg/3 mL solution for nebulization 2.5 mg inhalation QID metoprolol succinate 100 mg tablet extended release 24 hr 100 mg PO DAILY Systane (propylene glycol) 0.4-0.3 % drops 1 drp ophthalmic (eye) DAILY PRN topiramate 50 mg capsule,extended release 24hr 50 mg PO DAILY guaifenesin 600 mg tablet extended release 12hr 600 mg PO Q12H PRN Ozempic 1 mg/dose (4 mg/3 mL) pen injector 1 mg SUBCUT .weekly ondansetron HCl 4 mg tablet 4 mg PO Q6H PRN (Reason: Nausea And Vomiting) levothyroxine 25 mcg tablet 25 mcg PO DAILY@0500 sumatriptan succinate [Imitrex] 25 mg tablet 25 mg PO Q6H PRN (Reason: Migraine Headache) Eliquis 5 mg tablet 5 mg PO Q12H acetaminophen 325 mg Tablet 650 mg PO Q4H PRN (Reason: pain or elevated temp) benzonatate 100 mg capsule 100 mg PO QID PRN (Reason: Cough) morphine 15 mg tablet extended release 15 mg PO BID duloxetine 60 mg capsule,delayed release(DR/EC) 60 mg PO DAILY insulin aspart U-100 [Novolog U-100 Insulin aspart] 100 unit/mL solution See Rx Instructions .ROUTE .COMPLEX Qty: 130 0RF Rx Instructions: Inject, subcut, 3 times daily, after meals, based on mild dose sliding scale Discharge Orders: Discharge ED (Routine); Ordered 08/10/24 Ordered By: Sonido Victoria Referrals: Ethan Ricci MD [Primary Care Provider] - 1 week Patient Instructions: COPD (Chronic Obstructive Pulmonary Disease) (ED), Chronic Kidney Disease (ED) Activity Restrictions/Additional Instructions: Thank you for choosing [facility] for your healthcare needs today. Please realize that you were seen in the emergency department and that we are providing you with an emergency medical screening exam and this may not be a complete and all exclusive of all testing and/or medical workup we may need to determine your element or severity of your illness. It is very important that you follow-up as instructed with your primary care provider or specialist for the additional evaluation and to discuss your medical treatment plan. You may return to the emergency department should you have concerns or if your condition changes or worsens in any way. Coding Level of Care Code ED Apparel Sales Leader for Chg Fwd Documented by User: Sonido Victoria DO 08/10/24 23:53 HPI - SOB/Dyspnea 2 General: Chief Complaint: Shortness of Breath/Dyspnea Stated Complaint: SOB, CP Time Seen by Provider: 08/10/24 19:37 Related Data Home Medications Medication Instructions Recorded Confirmed gabapentin 300 mg capsule 300 mg PO TID@0500,1300,2100 10/05/19 08/08/24 levothyroxine 25 mcg tablet 25 mcg PO DAILY@0500 03/03/20 08/08/24 ondansetron HCl 4 mg tablet 4 mg PO Q6H PRN Nausea And Vomiting 03/03/20 08/08/24 apixaban 5 mg tablet (Eliquis) 5 mg PO Q12H 06/18/20 08/08/24 pantoprazole 40 mg tablet,delayed 40 mg PO DAILY@0500 06/18/20 08/08/24 release sumatriptan succinate 25 mg tablet 25 mg PO Q6H PRN Migraine Headache 06/18/20 08/08/24 (Imitrex) acetaminophen 325 mg tablet 650 mg PO Q4H PRN pain or elevated 10/10/23 08/08/24 temp benzonatate 100 mg capsule 100 mg PO QID PRN Cough 10/10/23 08/08/24 duloxetine 60 mg capsule,delayed 60 mg PO DAILY 10/10/23 08/08/24 release morphine 15 mg tablet,extended 15 mg PO BID 10/10/23 08/08/24 release albuterol sulfate 1.25 mg/3 mL 2.5 mg inhalation QID 08/08/24 08/08/24 solution for nebulization cetirizine 10 mg tablet 10 mg PO DAILY PRN 08/08/24 08/08/24 guaifenesin 600 mg tablet, 600 mg PO Q12H PRN 08/08/24 08/08/24 extended release 12 hr metoprolol succinate 100 mg 100 mg PO DAILY 08/08/24 08/08/24 tablet,extended release 24 hr peg 400-propylene glycol 0.4 %-0.3 1 drp ophthalmic (eye) DAILY PRN 08/08/24 08/08/24 % eye drops (Systane (propylene glycol)) semaglutide 1 mg/dose (4 mg/3 mL) 1 mg SUBCUT .weekly 08/08/24 08/08/24 subcutaneous pen injector (Ozempic) topiramate 50 mg capsule,extended 50 mg PO DAILY 08/08/24 08/08/24 release 24 hr Previous Rx's Medication Instructions Recorded insulin aspart U-100 100 unit/mL See Rx Instructions .Route 10/11/23 subcutaneous solution (Novolog .COMPLEX #130 mL U-100 Insulin aspart) blood-glucose meter,continuous #1 ea 12/08/23 (Dexcom G7 Enrollment Coordinator) blood-glucose sensor (Dexcom G7 #3 ea 12/08/23 Sensor device) diabetic shoes w/ 3 inserts #1 ea 12/20/23 Allergies Allergy/AdvReac Type Severity Reaction Status Date / Time Tetracyclines Allergy Severe ALGY-Anaphy Verified 08/08/24 15:25 laxis wool Allergy Intermediate ALGY-Hives Verified 08/08/24 15:25 mushroom Allergy Unknown Verified 08/08/24 15:25 adhesive AdvReac Unknown Verified 08/08/24 15:25 Artificial Sweetners AdvReac Intermediate ADR-Headach Uncoded 08/08/24 15:25 e PFSH ED 2 PFSH: Medical History (Updated 08/10/24 @ 23:53 by Sonido Victoria DO) Renovascular hypertension Acute paronychia of finger of left hand 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 Morbid obesity Hyponatremia Hypertension Hoarding disorder with excessive acquisition Generalized anxiety disorder Major depressive disorder, recurrent severe without psychotic features COPD (chronic obstructive pulmonary disease) Oxygen dependent Chronic anticoagulation On hold due to vaginal bleeding Congestive heart failure Hypertension Hypothyroidism DELMIS (obstructive sleep apnea) Atrial fibrillation Surgical History Status post biopsy of skin History of dental surgery Family History Other CAD (coronary artery disease) Chronic kidney disease (CKD) Diabetes Hyperlipidemia Hypertension Lung disease Thyroid disease Social History (Updated 08/08/24 @ 15:36 by CORI Alicia) Smoking and tobacco/nicotine status: unknown if used tobacco/nicotine Quit status (tobacco/nicotine): has quit using Year quit tobacco: 2006 [id number] Second hand smoke exposure: No Alcohol intake: never Substance/Drug Use: never Lives independently: No Housing: Residential Marital status: Marital status details: is wheelchair-bound, Current occupational status: disabled Do you think of yourself as: Straight/Heterosexual Current gender identity: Female Course 2 Vital Signs: Vital signs: Vital Signs Temperature 97.9 F 08/10/24 19:43 Pulse Rate 89 08/10/24 23:22 Respiratory Rate 15 08/10/24 23:22 Blood Pressure 140/96 08/10/24 23:22 Pulse Oximetry 99 08/10/24 23:22 Oxygen Delivery Me thod Room Air 08/10/24 23:22 Oxygen Flow Rate 2 08/10/24 22:38 MDM - SOB/Dyspnea Medical Decision Making Differential diagnosis for patient with shortness of breath includes but is not limited to and based on the above HPI, review of systems and physical exam: Pneumonia. Bronchitis. Asthma or COPD with acute exacerbation. Acute coronary syndrome / OK. Pulmonary embolism. Anxiety. Congestive heart failure. Viral infections including influenza and Covid-19. Atrial fibrillation. Anxiety. Pleural effusion. Pneumothorax. Orders placed to evaluate differential diagnosis based on the above differential, HPI and physical exam EKG: Time 1943. Rate 96. Atrial fibrillation with controlled rate, No ST-T changes, no ectopy, This was reviewed and interpreted by myself the ER physician at 194 Lab Review: Laboratory results were reviewed and interpreted by myself the emergency room physician. I reviewed the patient's medical record. Reexamination: Patient care transferred over myself at shift change, lab work was reviewed as well as chest x-ray and ABG, all essentially benign for this patient. Patient is been titrated down to 2 L of oxygen per nasal cannula and continues to sat 95+ percent. Patient does not appear to be any distress during her entire stay here at the hospital. Patient be discharged back to the half-way. Lab Data 08/10/24 20:35 08/10/24 20:35 Labs/Radiology: Radiology Impressions Chest X-Ray 08/10/24 19:40 IMPRESSION: 1. Mild pulmonary edema. 2. Small pleural effusions. 3. Enlarged pericardial silhouette. Laboratory Results WBC 11.49 10^3/uL (3.29-11.43) H 08/10/24 20:35 RBC 5.19 10^6/uL (3.85-5.65) 08/10/24 20:35 Hgb 12.80 g/dL (11.27-16.99) 08/10/24 20:35 Hct 44.4 % (36-47) 08/10/24 20:35 MCV 85.5 fl (85-98) 08/10/24 20:35 MCH 24.7 pg (27-33) L 08/10/24 20:35 MCHC 28.8 g/dL (30-55) L 08/10/24 20:35 RDW 17.4 % (12.1-15.1) H 08/10/24 20:35 Plt Count 269 10^3/cmm (157-399) 08/10/24 20:35 MPV 11.2 fL (7.4-10.4) H 08/10/24 20:35 Neut % (Auto) 81.1 % 08/10/24 20:35 Lymph % (Auto) 10.2 % 08/10/24 20:35 Osborne % (Auto) 5.8 % 08/10/24 20:35 Eos % (Auto) 2.0 % 08/10/24 20:35 Baso % (Auto) 0.4 % 08/10/24 20:35 Neut # (Auto) 9.31 10^3/uL (1.8-7.7) H 08/10/24 20:35 Lymph # (Auto) 1.2 10^3/uL (0.8-4.8) 08/10/24 20:35 Osborne # (Auto) 0.7 10^3/uL (0.2-0.9) 08/10/24 20:35 Eos # (Auto) 0.2 10^3/uL (0.0-0.8) 08/10/24 20:35 Baso # (Auto) 0.1 10^3/uL (0.0-0.1) 08/10/24 20:35 Nucleated RBC % (auto) 0 % 08/10/24 20:35 Nucleated RBCs # 0.0 /100WBC 08/10/24 20:35 Specimen Type Arterial 08/10/24 19:40 Sample Site Brachial, right 08/10/24 19:40 ABG pH 7.32 (7.35-7.45) L 08/10/24 19:40 ABG pCO2 39.8 mmHg (35-45) 08/10/24 19:40 ABG pO2 93.0 mmHg (80.0-100.0) 08/10/24 19:40 ABG HCO3 20.5 mmol/L (22-26) L 08/10/24 19:40 ABG O2 Saturation 95.8 08/10/24 19:40 ABG Base Excess -5.2 mmol/L (-2.0-2.0) L 08/10/24 19:40 Elian Test Pos 08/10/24 19:40 A-a O2 Gradient 0.6 mmHg (5-10) L 08/10/24 19:40 Hematocrit 39.8 % (37-47) 08/10/24 19:40 Hgb O2 Saturation 94.2 % (95-100) L 08/10/24 19:40 Carboxyhemoglobin 0.6 %THgb (0.4-20.1) 08/10/24 19:40 Methemoglobin 1.1 % (0.4-1.5) 08/10/24 19:40 Total Hemoglobin 13.0 g/dL (12-16) 08/10/24 19:40 Sodium 136.0 mmol/L (131-143) 08/10/24 19:40 Potassium 4.6 mmol/L (3.5-5.0) 08/10/24 19:40 Glucose 188.0 mg/dL (70-115) H 08/10/24 19:40 Ionized Calcium 1.2 mmol/L (1.1-1.4) 08/10/24 19:40 O2 Delivery Device Nc 08/10/24 19:40 O2 Liters/Min 3.0 % 08/10/24 19:40 Community Support Professional ID [email or web address] 08/10/24 19:40 Sodium 133 mmol/L (136-145) L 08/10/24 20:35 Potassium 5.0 mmol/L (3.5-5.1) 08/10/24 20:35 Chloride 99 mmol/L (98-107) 08/10/24 20:35 Carbon Dioxide 21 mmol/L (22-29) L 08/10/24 20:35 Anion Gap 18.0 (5-19) 08/10/24 20:35 BUN 25 mg/dL (6-20) H 08/10/24 20:35 Creatinine 1.9 mg/dL (0.5-0.9) H 08/10/24 20:35 GFR Calculation 27.1 mL/min (90-130) L 08/10/24 20:35 Glucose 148 mg/dL (65-115) H 08/10/24 20:35 Calculated Osmolality 283 mOsm/kg (285-295) L 08/10/24 20:35 Lactic Acid 1.9 mmol/L (0.5-2.2) 08/10/24 20:35 Calcium 8.8 mg/dL (8.5-10.5) 08/10/24 20:35 Total Bilirubin 0.8 mg/dL (0.15-1.2) 08/10/24 20:35 AST 16 U/L (0-32) 08/10/24 20:35 ALT 13 U/L (0-33) 08/10/24 20:35 Alkaline Phosphatase 188 U/L (35-105) H 08/10/24 20:35 Troponin T Baseline 57 ng/L (0-10) H 08/10/24 20:15 Troponin T 120 Minute 54.27 ng/L (0-10) H 08/10/24 22:15 Delta Troponin T -2.73 ABS# (0-10) L 08/10/24 22:15 C-Reactive Protein 42.8 mg/L (0.0-4.9) H 08/10/24 20:35 NT-Pro-B Natriuret Pep 1510 pg/mL (0-125) H 08/10/24 20:35 Total Protein 7.2 g/dL (6.6-8.7) 08/10/24 20:35 Albumin 3.5 g/dL (3.5-5.2) 08/10/24 20:35 Globulin 3.7 g/dL (1.3-4.6) 08/10/24 20:35 Coronavirus (PCR) Negative (Negative) 08/10/24 20:15 Influenza A (PCR) Negative (Negative) 08/10/24 20:15 Influenza Type B (PCR) Negative (Negative) 08/10/24 20:15 RSV (PCR) Negative (Negative) 08/10/24 20:15 All radiology interpretation(s) finalized by discharge Discharge Plan Discharge Patient Disposition: Home Clinical Impression: Chronic shortness of breath Chronic kidney insufficiency Qualifiers: Chronic kidney disease stage: unspecified stage Qualified Code(s): N18.9 - Chronic kidney disease, unspecified Condition: Stable Prescriptions: No Action gabapentin 300 mg capsule 300 mg PO TID@0500,1300,2100 pantoprazole 40 mg tablet,delayed release (DR/EC) 40 mg PO DAILY@0500 (DME) Dexcom G7 Sensor Device See Rx Instructions .Route Qty: 3 3RF Rx Instructions: As directed (DME) Dexcom G7 Enrollment Coordinator Misc See Rx Instructions .Route Qty: 1 0RF Rx Instructions: As directed ([facility] [place]) diabetic shoes w/ 3 inserts See Rx Instructions .Route .MEDSUPPLY Qty: 1 0RF Rx Instructions: As directed cetirizine 10 mg tablet 10 mg PO DAILY PRN albuterol sulfate 1.25 mg/3 mL solution for nebulization 2.5 mg inhalation QID metoprolol succinate 100 mg tablet extended release 24 hr 100 mg PO DAILY Systane (propylene glycol) 0.4-0.3 % drops 1 drp ophthalmic (eye) DAILY PRN topiramate 50 mg capsule,extended release 24hr 50 mg PO DAILY guaifenesin 600 mg tablet extended release 12hr 600 mg PO Q12H PRN Ozempic 1 mg/dose (4 mg/3 mL) pen injector 1 mg SUBCUT .weekly ondansetron HCl 4 mg tablet 4 mg PO Q6H PRN (Reason: Nausea And Vomiting) levothyroxine 25 mcg tablet 25 mcg PO DAILY@0500 sumatriptan succinate [Imitrex] 25 mg tablet 25 mg PO Q6H PRN (Reason: Migraine Headache) Eliquis 5 mg tablet 5 mg PO Q12H acetaminophen 325 mg Tablet 650 mg PO Q4H PRN (Reason: pain or elevated temp) benzonatate 100 mg capsule 100 mg PO QID PRN (Reason: Cough) morphine 15 mg tablet extended release 15 mg PO BID duloxetine 60 mg capsule,delayed release(DR/EC) 60 mg PO DAILY insulin aspart U-100 [Novolog U-100 Insulin aspart] 100 unit/mL solution See Rx Instructions .ROUTE .COMPLEX Qty: 130 0RF Rx Instructions: Inject, subcut, 3 times daily, after meals, based on mild dose sliding scale Discharge Orders: Discharge ED (Routine); Ordered 08/10/24 Ordered By: Sonido Victoria Referrals: Ethan Ricci MD [Primary Care Provider] - 1 week Patient Instructions: COPD (Chronic Obstructive Pulmonary Disease) (ED), Chronic Kidney Disease (ED) Activity Restrictions/Additional Instructions: Thank you for choosing [facility] for your healthcare needs today. Please realize that you were seen in the emergency department and that we are providing you with an emergency medical screening exam and this may not be a complete and all exclusive of all testing and/or medical workup we may need to determine your element or severity of your illness. It is very important that you follow-up as instructed with your primary care provider or specialist for the additional evaluation and to discuss your medical treatment plan. You may return to the emergency department should you have concerns or if your condition changes or worsens in any way. Coding Level of Care Code ED Apparel Sales Leader for Tanner Chavez
[2024-08-10 19:56] LABS: ABG PCO2 39.8 mmHg (35-45); ABG PH Result 7.32 (7.35-7.45); Alveolar-Arterial Oxygen Gradi 0.6 mmHg (5-10); Arterial Blood Gas Hematocrit 39.8 % (37-47); Base Excess ABG -5.2 mmol/L (-2.0-2.0); Blood Gas Allen Test Pos; Blood Gas Sample Site Brachial, right; Blood Gas Sample Type Arterial; Carboxyhemoglobin 0.6 %THgb (0.4-20.1); HCO3 ABG 20.5 mmol/L (22-26); HGB O2 Sat 94.2 % (95-100); Ionized Calcium Level - ABG 1.2 mmol/L (1.1-1.4); Methemoglobin 1.1 % (0.4-1.5); Oxygen Device NC; Oxygen Saturation ABG 95.8; Potassium Level - ABG 4.6 mmol/L (3.5-5.0)
[2024-08-10] MEDS: methylPREDNISolone sod succ 125 mg/2 mL INJ IVP (20:28)
[2024-08-10] MEDS: albuterol 2.5 mg/3 mL Neb INHALATION (20:47)
[2024-08-10] MEDS: ipratropium-albuterol 3 mL Neb INHALATION (20:47)
[2024-08-10 20:57] LABS: Basophils # 0.1 10^3/uL (0.0-0.1); Basophils % 0.4 %; Eosinophils # 0.2 10^3/uL (0.0-0.8); Hematocrit 44.4 % (36-47); Lymphocytes # 1.2 10^3/uL (0.8-4.8); Lymphocytes % 10.2 %; Mean Corpuscular HGB Conc 28.8 g/dL (30-55); Mean Corpuscular Hemoglobin 24.7 pg (27-33); Mean Corpuscular Volume 85.5 fl (85-98); Mean Platelet Volume 11.2 fL (7.4-10.4); Monocytes # 0.7 10^3/uL (0.2-0.9); Monocytes % 5.8 %; Neutrophils # 9.31 10^3/uL (1.8-7.7); Neutrophils % 81.1 %; Nucleated Red Blood Cells % 0 %; Platelet Count 269 10^3/cmm (157-399); Red Blood Count 5.19 10^6/uL (3.85-5.65); Red Cell Distribution Width 17.4 % (12.1-15.1); White Blood Count 11.49 10^3/uL (3.29-11.43)
[2024-08-10 21:17] LABS: Lactic Sepsis W/Reflex 1.9 mmol/L (0.5-2.2)
[2024-08-10 21:26] LABS: Alanine Aminotransferase 13 U/L (0-33); Albumin Level 3.5 g/dL (3.5-5.2); Alkaline Phosphatase 188 U/L (35-105); Aspartate Amino Transferase 16 U/L (0-32); Blood Urea Nitrogen 25 mg/dL (6-20); C Reactive Protein 42.8 mg/L (0.0-4.9); Calcium 8.8 mg/dL (8.5-10.5); Carbon Dioxide 21 mmol/L (22-29); Chloride 99 mmol/L (98-107); Creatinine Clr Calc Pharmacy 47.1461; Globulin 3.7 g/dL (1.3-4.6); Glomerular Filtration Rate 27.1 mL/min (90-130); Glucose 148 mg/dL (65-115); NT Pro B Type Natriuretic Pept 1510 pg/mL (0-125); Osmolality Calculated 283 mOsm/kg (285-295); Sodium 133 mmol/L (136-145); Total Bilirubin 0.8 mg/dL (0.15-1.2); Total Protein 7.2 g/dL (6.6-8.7)
[2024-08-10 21:29] LABS: Troponin(5th) Baseline 57 ng/L (0-10)
[2024-08-10 21:35] LABS: Covid PCR NEGATIVE (Negative); Influenza A NEGATIVE (Negative); Influenza B NEGATIVE (Negative); Respiratory Syncytial Virus Ce NEGATIVE (Negative)
[2024-08-10 22:42] LABS: Troponin 5 2HR 54.27 ng/L (0-10); Troponin 5 2HR Delta -2.73 ABS# (0-10)
[2024-08-11 00:30] VITALS: BP 137/84; PULSE 86; RESP 16; O2SAT 99
--- NOTE | 2024-08-11 00:41 | PC.NURSE ---
PT REPORT CALLED TO STEPHEN AT [facility]. NO FURTHER QUESTIONS FROM NURSE.
[2024-08-11 03:16] VITALS: BP 135/76; PULSE 93; RESP 20; O2SAT 100
--- NOTE | 2024-08-11 05:14 | PC.NURSE ---
Pt. soiled clothing with urine and stool. Urszula MONTIEL and I cleaned her and her bed and replaced with air mattress and padding. Pt. asked for her pants to be thrown into the trash. Pt. is placed in gown and warm blankets at this time.
--- NOTE | 2024-08-11 07:45 | PC.PHAR ---
PATIENT IS FROM [facility]
[2024-08-11 08:29] VITALS: BP 155/89; PULSE 94; O2SAT 98
--- NOTE | 2024-08-11 16:35 | PC.NURSE ---
Dr. Key notified of blood culture results. Dr Key requested nurse to call halfway and check pt condition. [facility] pt was feeling better. Dr. Key notified, no further orders.
== END 2024-08-11 08:33 | disposition home or self-care (01) ==
PROVIDERS: Emergency Provider Emergency Medicine; PCP Internal Medicine
DX: R06.02 Shortness of breath (principal); J44.9 Chronic obstructive pulmonary disease, unspecified; E11.22 Type 2 diabetes mellitus with diabetic chronic kidney disease; I13.0 Hypertensive heart and chronic kidney disease with heart failure and stage 1 through stage 4 chronic kidney disease, or unspecified chronic kidney disease; N18.4 Chronic kidney disease, stage 4 (severe); I50.9 Heart failure, unspecified; Z99.81 Dependence on supplemental oxygen; Z79.01 Long term (current) use of anticoagulants
CPT/HCPCS: 36415; 71045; 80051; 80053; 82330; 82805; 83605; 83880; 84484; 85025; 86140; 87040; 87077; 87150; 87186; 87205; 87637; 93005; 94640; 96374; 99285; J2919; J7613

== ENCOUNTER → 2024-09-07 08:33 | Outpatient (BNVA) | payer MEDICARE, MEDICAID, SELFPAY | PROVIDERS: PCP Internal Medicine; Visit Provider Internal Medicine | DX: E11.40 Type 2 diabetes mellitus with diabetic neuropathy, unspecified (principal); E11.65 Type 2 diabetes mellitus with hyperglycemia; E11.22 Type 2 diabetes mellitus with diabetic chronic kidney disease; I12.9 Hypertensive chronic kidney disease with stage 1 through stage 4 chronic kidney disease, or unspecified chronic kidney disease; N18.4 Chronic kidney disease, stage 4 (severe); E66.01 Morbid (severe) obesity due to excess calories; E03.9 Hypothyroidism, unspecified; E78.2 Mixed hyperlipidemia; Z79.4 Long term (current) use of insulin | CPT/HCPCS: 99214 ==

== ENCOUNTER → 2024-09-11 12:52 | Outpatient (BNVA) | payer MEDICARE, MEDICAID, SELFPAY | PROVIDERS: PCP Internal Medicine; Visit Provider Internal Medicine Cardiovascular Disease | DX: I48.11 Longstanding persistent atrial fibrillation (principal); Z79.01 Long term (current) use of anticoagulants | CPT/HCPCS: 99213 ==

== ENCOUNTER → 2024-10-24 10:41 | Outpatient (BNVA) | payer MEDICARE, MEDICAID, SELFPAY | PROVIDERS: PCP Internal Medicine; Visit Provider Podiatrist Foot & Ankle Surgery | DX: M79.671 Pain in right foot (principal); E11.42 Type 2 diabetes mellitus with diabetic polyneuropathy; L60.3 Nail dystrophy; N18.9 Chronic kidney disease, unspecified; G62.9 Polyneuropathy, unspecified; S92.411A Displaced fracture of proximal phalanx of right great toe, initial encounter for closed fracture; X58.XXXA Exposure to other specified factors, initial encounter; Z79.4 Long term (current) use of insulin | CPT/HCPCS: 11721; 73630; 99213 ==

== ENCOUNTER → 2025-01-09 07:54 | Outpatient (BNVA) | payer OTHER, MEDICAID, SELFPAY | PROVIDERS: PCP Internal Medicine; Visit Provider Podiatrist Foot & Ankle Surgery | DX: E11.42 Type 2 diabetes mellitus with diabetic polyneuropathy (principal); L60.3 Nail dystrophy; N18.9 Chronic kidney disease, unspecified; G62.9 Polyneuropathy, unspecified; Z79.4 Long term (current) use of insulin | CPT/HCPCS: 11721 ==

== ENCOUNTER 2025-01-16 21:29 | Emergency (ER) | payer OTHER, MEDICAID, SELFPAY ==
--- OUTSIDE RECORDS SUMMARY | 2024-12-15 07:40 | XMS_ITS ---
Author Organization [facility] Address [address] [place] [address] Care Team Providers Care Teacher Visually Impaired Name Role Phone Quang Ricci Primary Care Provider Allergies Allergen (clinical drug ingredient) Drug/Non Drug Allergy documented on EMR Reaction Allergy Type Onset Date Status Adhesive Unknown Allergy Active Fungi Unknown Allergy Active Product containing tetracycline structure (product) Tetracyclines & Related Unknown Drug Allergy Acti ve REASON FOR VISIT [facility] Rounds, intermediate visit at [place], [place] Medications Medication SIG (Take, Route, Frequency, Duration) Notes Start Date End Date Status Lancets - as directed Active Lite Touch Pen [place] 31G X 5 MM as directed Active Nystatin 959148 UNIT/GM 1 application Ex ternally Twice a day Active Eliquis 5 mg TAKE ONE TABLET BY M OUTH TWICE DAILY for 30 Active DULoxetine HCl 60 MG 1 capsule Orally On ce a day for 30 days 06/10/2022 Active Ondansetron HCl 4 MG 1 tablet Orally Onc e a day for 30 day(s) 06/10/2022 Active Pantoprazole Sodium 40 mg TAKE ONE TABLE T BY MOUTH EVERY DAY for 30 Active Levothyroxine Sodium 25 mcg TAKE ONE TABLET BY MOUTH EVERY DAY for 30 Active Gabapentin 300 mg TAKE ONE CAPSULE BY MOUTH THREE TIMES DAILY for 30 Active Metoprolol Tartrate 25 mg TAKE ONE TABLE T BY MOUTH TWICE DAILY for 30 Active Tresiba 100 UNIT/ML 120 Units Subcutaneo us once a day for 30 days 03/25/2023 Active Tylenol 325 MG 1 tablet as needed O rally every 4 hrs Active Imitrex 25 MG 1 tablet at least 2 hours between doses as needed Orally Twice a day 06/10/2022 Active Accu-Chek Guide - as directed In Vitro Active NovoLOG 100 UNIT/ML moderate sliding sca le Injection TID w meals Active Nystop 183922 UNIT/GM apply TO affected area of abdominal fold and breasts TWICE DAILY for 15 Active Ozempic (2 MG/DOSE) 8 MG/3ML INJECT 2MG SUBCUTANEOUSLY EVERY WEDNESDAY FOR OBESITY for 28 Active Morphine Sulfate ER 15 MG 1 tablet Orall y every 12 hrs for 30 days 11/20/2024 12/20/2024 Active Wellbutrin XL 300 MG 1 tablet in the mor jennifer Orally Once a day Active Benzonatate 100 MG 1 capsule as needed Orally Three times a day Active Encounters Encounter Location Date Provider Diagnosis Formerly [facility] [address] [place] [address] 12/15/2024 Quang Ricci Moderate episode of recurrent major depressive disorder F33.1 and History of DVT (deep vein thrombosis) Z86.718 Assessments Encounter Date Diagnosis (ICD Code) Assessment Notes Treatment Notes Treatment Clinical Notes Section Notes 12/15/2024 Moderate episode of recurrent major depressive disorder (ICD-10 - F33.1) 12/15/2024 History of DVT (deep vein thrombosis) (ICD-10 - Z86.718) 12/15/2024 Other Medications wer e reviewed. I will continue without changes. Nursing staff is to contact me with any symptoms arising. Orders signed and documented with nursing staff. Vitals taken and recorded at [facility]. Plan Of Treatment Treatment Notes Assessment Notes Other Medications were rev iewed. I will continue without changes. Nursing staff is to contact me with any symptoms arising. Orders signed and documented with nursing staff. Vitals taken and recorded at [facility]. Next Appt Details Follow Up: 4 Weeks, Reason: Progress Notes * Ana Lilia MILLER EDOB: [birth year] (59 yo F)Acc No.[id number]:12/15/2024 Patient: Ana Lilia CRESPO Provider: Ashutosh Ricci MD :1965 A ge:59 Y S ex:Female Date:12/15/2024 Address:[address] [place] [id number] Subjective: * Chief Complaints: * 1 . [facility] Rounds. 2. intermediate visit at [place], [place]. * HPI: * :: The [facility] in the prison today for follow-up. Staff reports no new complaints. The review of systems and exam are unchanged from previous. Patient denies pain and is comfortable. * Medical History: C ellulitis, unspecified, Cellulitis of left finger, Elevated erythrocyte sedimentation rate, Hypo-osmolality and hyponatremia, Bile duct stricture, Morbid obesity due to excess calories, Atrial fibrillation, Chronic airway obstruction, not elsewhere classified, Chronic kidney disease due to diabetes mellitus, Chronic kidney disease, stage 4 (severe), Type 2 diabetes mellitus with diabetic neuropathy, unspecified, Hypothyroidism, Anxiety, Chronic diastolic (congestive) heart failure, Moderate obstructive sleep apnea, Depression, endogenous, Dependence on continuous supplemental oxygen, Accelerated essential hypertension, Hoarding disorder, Acute paronychia of finger of left hand, Chronic anticoagulation, Congestive heart failure, Hypertension, Hyponatremia, Oxygen dependant, Neuropathy. * Medications: T aking Morphine Sulfate ER 15 MG Tablet Extended Release 1 tablet Orally every 12 hrs , stop date 12/20/2024, Taking Ozempic (2 MG/DOSE) 8 MG/3ML Solution Pen- injector INJECT 2MG SUBCUTANEOUSLY EVERY WEDNESDAY FOR OBESITY , Taking Nystop 203782 UNIT/GM Powder apply TO affected area of abdominal fold and breasts TWICE DAILY , Taking Benzonatate 100 MG Capsule 1 capsule as needed Orally Three times a day , Taking Wellbutrin XL 300 MG Tablet Extended Release 24 Hour 1 tablet in the morning Orally Once a day , Taking Tylenol 325 MG Tablet 1 tablet as needed Orally every 4 hrs , Taking Tresiba 100 UNIT/ML Solution 120 Units Subcutaneous once a day , Taking NovoLOG 100 UNIT/ML Solution moderate sliding scale Injection TID w meals , Taking Accu-Chek Guide - Strip as directed In Vitro , Taking Imitrex 25 MG Tablet 1 tablet at least 2 hours between doses as needed Orally Twice a day , Taking Ondansetron HCl 4 MG Tablet 1 tablet Orally Once a day , Taking Metoprolol Tartrate 25 mg Tablet TAKE ONE TABLET BY MOUTH TWICE DAILY , Taking Gabapentin 300 mg Capsule TAKE ONE CAPSULE BY MOUTH THREE TIMES DAILY , Taking Levothyroxine Sodium 25 mcg Tablet TAKE ONE TABLET BY MOUTH EVERY DAY , Taking Pantoprazole Sodium 40 mg Tablet Delayed Release TAKE ONE TABLET BY MOUTH EVERY DAY , Taking Eliquis 5 mg Tablet TAKE ONE TABLET BY MOUTH TWICE DAILY , Taking Nystatin 682254 UNIT/GM Ointment 1 application Externally Twice a day , Taking Lite Touch Pen [place] 31G X 5 MM Miscellaneous as directed , Taking Lancets - Miscellaneous as directed , Taking DULoxetine HCl 60 MG Capsule Delayed Release Particles 1 capsule Orally Once a day , Medication List reviewed and reconciled with the patient * Allergies: T etracyclines & Related - Criticality Unknown, Fungi - Criticality Unknown, Adhesive. Objective: * Vitals: * Examination: G eneral Examination: GENERAL APPEARANCE: i n no acute distress. Vital signs as documented.. NECK/THYROID: n o JVD. SKIN: w arm and dry, without overt rashes.. HEART: n otable for regular rhythym, normal sounds and absence of murmurs, rubs or gallops.. LUNGS: L ungs clear. ABDOMEN: u nremarkable, no organomegaly , no masses, or abdominal aortic enlargement.. Assessment: * Assessment: 1. M oderate episode of recurrent major depressive disorder - F33.1 (Primary) 2 . H istory of DVT (deep vein thrombosis) - Z86.718 Plan: * Treatment: * Procedure Codes: 9 9309 SNF CARE SUBSEQ * Follow Up: 4 Weeks * Billing Information: * Visit Code: * Procedure Codes: 87626 SNF CARE SUBSEQ. * Electronic signature of Vamshi Ricci MD on 01/16/2025 at 10:15 PM CDT Sign off status: Pending * Provider: Ashutosh Ricci MD Date: 12/15/2024 Generated for Marina jett/Gilmar/Rinkusmitting on: 0 01/16/2025 10:15 PM CDT History and Physical Notes * HPI (History of Present Illness) Category Sub-Category Detail Notes Category Not es : The patient is seen in the prison today for follow-up. Staff reports no new complaints. The review of systems and exam are unchanged from previous. Patient denies pain and is comfortable. Examination Category Sub-Category Detail Notes Category Not es General Examination GENERAL APPEARANCE: in no ac james distress. Vital signs as documented. NECK/THYROID: no JVD HEART: notable for regular rhythym, normal sounds and absence of murmurs, rubs or gallops. LUNGS: Lungs clear ABDOMEN: unremarkable, no org anomegaly , no masses, or abdominal aortic enlargement. SKIN: warm and dry, withou t overt rashes.
[2025-01-16 21:30] VITALS: BP 105/68; PULSE 91; TEMP 36.3; O2SAT 99
--- NOTE | 2025-01-16 21:42 | XRR_ITS ---
PROCEDURE INFORMATION: Exam: XR Left Knee Exam date and time: 01/16/2025 9:53 PM Age: 59 years old Clinical indication: Injury or trauma; Fall; Blunt trauma; Knee; Bilateral TECHNIQUE: Imaging protocol: Radiologic exam of the left knee. Views: 3 views. COMPARISON: CR XR knee LT 3V* [id number] 11/28/2021 7:50 PM FINDINGS: Bones/joints: No definite acute fracture or traumatic malalignment. Severe tricompartmental degenerative changes of the knee joint greatest involving the medial tibiofemoral compartment where there is subchondral sclerosis, marginal osteophytosis and near oowq-yz-zixb articulation. Small knee joint effusion. Soft tissues: Normal. XR/XR knee LT 3V* [id number] IMPRESSION: As above.
--- NOTE | 2025-01-16 21:42 | XRR_ITS ---
PROCEDURE INFORMATION: Exam: XR Right Knee Exam date and time: 01/16/2025 9:57 PM Age: 59 years old Clinical indication: Injury or trauma; Fall; Blunt trauma; Knee; Bilateral TECHNIQUE: Imaging protocol: Radiologic exam of the right knee. Views: 3 views. COMPARISON: CR XR foot RT min 3V* [id number] 10/24/2024 10:46 AM FINDINGS: Bones/joints: No definite acute fracture or traumatic malalignment. Severe tricompartmental degenerative changes of the knee joint greatest involving the medial tibiofemoral compartment where there is subchondral sclerosis, marginal osteophytosis and near xhit-co-zfci articulation. Small knee joint effusion. Soft tissues: Normal. XR/XR knee RT 3V* [id number] IMPRESSION: As above.
[2025-01-16 22:00] VITALS: BP 98/77; PULSE 86; O2SAT 100
--- OUTSIDE RECORDS SUMMARY | 2025-01-16 22:15 | XMS_ITS | Encounter Summary ---
Author Organization [facility] Address [address] [place] [address] Care Team Providers Care Ingredient Specialist Name Role Phone Mervat Nguyen MD Primary Care Provider [phone] Encounter Details Date Type Department Care Team (Late st Contact Info) Description 02/14/2020 Lab Requisition [facility] Services [address] [place] [address] Logan Mcdowell MD [address] [place] [address] Social History Tobacco Use Types Packs/Day Years Used Date Smoking Tobacco: Former Comments Unknown Sex and Gender Information Value Date Recorded Sex Assigned at Not on file Legal Sex Female 12:56 PM CDT Gender Identity Not on file Sexual Orientation Not on file documented as of this encounter Plan of Treatment Not on file documented as of this encounter Procedures Procedure Name Priority Date/Time Associated Diagnosis Comments MICROALBUMIN/CREATI NINE RATIO, RANDOM UR Routine 02/14/2020 7:05 AM CDT documented in this encounter Results * (ABNORMAL) MICROALBUMIN/CREATININE RATIO, RANDOM UR (02/14/2020 7:05 AM CDT) ALBUMIN, URINE 26.5 mg/L 02/16/2020 12:39 PM CDT [facility] Comment: ADDITIONAL INFORMATION This test has been modified from the earth science technician's instructions. Its performance characteristics were determined by [facility] in a manner consistent with CLIA requirements. This test has not been cleared or approved by the U.S. Food and Drug Administration. CREATININE, URINE 68 mg/dL 020 12:39 PM CDT [facility] ALBUMIN/CREATININE RATIO 39(H) <25 mg/g 02/16/2020 12:39 PM CDT [facility] Comment: Test Performed by: [place] [address] Pond Scaler: Calvin Mayo M.D. Ph.D.; CLIA# [id number] Urine URINE SPECIMEN OBTAINED BY CLEAN CATCH PROCEDURE / Unknown Collection / Unknown 02/14/2020 7:05 AM CDT 02/14/2020 5:35 PM CDT Logan Mcdowell MD URINE ORDERABLES Final Result [facility] documented in this encounter Visit Diagnoses Not on filedocumented in this encounter Additional Health Concerns Infection Onset Date Last Indicated Resolved Time R/O COVID-19 03/03/2020 03/03/2020 03/03/2020 11:0 6 PM CDT documented as of this encounter Care Teams Ingredient Specialist Relationship Specialty Start Date End Date Mervat Nguyen MD [address] [place] [address] PCP - General Internal Medicine 03/06/20 documented as of this encounter
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
--- OUTSIDE RECORDS SUMMARY | 2025-01-16 22:15 | XMS_ITS | Encounter Summary ---
Author Organization [facility] Address [address] [place] [address] Care Team Providers Care Handbag Parts Cutter Name Role Phone Mervat Nguyen MD Primary Care Provider [phone] Encounter Details Date Type Department Care Team (Latest Contact Info) Description 03/13/2015 Ancillary Orders [facility] [address] [facility] [address] [place] [address] Esmer Rubio APN [address] [facility] [address] [place] [address] Other (abnormal) findings on radiological examination of breast (Primary Dx) Social History Tobacco Use Types Packs/Day Years Used Date Smoking Tobacco: Never Assessed Comments Unknown Sex and Gender Information Value Date Recorded Sex Assigned at Not on file Legal Sex Female 12:56 PM CDT Gender Identity Not on file Sexual Orientation Not on file documented as of this encounter Plan of Treatment Not on file documented as of this encounter Visit Diagnoses Diagnosis Other (abnormal) findings on radiological examination of breast- Primary documented in this encounter Additional Health Concerns Infection Onset Date Last Indicated Resolved Time R/O COVID-19 03/03/2020 03/03/2020 03/03/2020 11:0 6 PM CDT documented as of this encounter Care Teams Handbag Parts Cutter Relationship Specialty Start Date End Date Mervat Nguyen MD [address] [place] [address] PCP - General Internal Medicine 03/06/20 documented as of this encounter
--- OUTSIDE RECORDS SUMMARY | 2025-01-16 22:15 | XMS_ITS | Patient Health Record ---
Author Organization [facility] Address [address] [place] [address] Care Team Providers Care [employer] Name Role Phone Quang Ricci Primary Care Provider Allergies Allergen (clinical drug ingredient) Drug/Non Drug Allergy documented on EMR Reaction Allergy Type Onset Date Status Adhesive Unknown Allergy Active Fungi Unknown Allergy Active Product containing tetracycline structure (product) Tetracyclines & Related Unknown Drug Allergy Acti ve Reason For Referral No Information Medications Medication SIG (Take, Route, Frequency, Duration) Notes Start Date End Date Status Lancets - as directed Active Lite Touch Pen [place] 31G X 5 MM as directed Active Nystatin 003633 UNIT/GM 1 application Ex ternally Twice a day Active Eliquis 5 mg TAKE ONE TABLET BY M OUTH TWICE DAILY for 30 Active Nystop 556386 UNIT/GM apply TO affected area of abdominal fold and breasts TWICE DAILY for 15 Active Ozempic (2 MG/DOSE) 8 MG/3ML INJECT 2MG SUBCUTANEOUSLY EVERY WEDNESDAY FOR OBESITY for 28 Active Tresiba 100 UNIT/ML 120 Units Subcutaneo us once a day for 30 days 03/25/2023 Active Tylenol 325 MG 1 tablet as needed O rally every 4 hrs Active Morphine Sulfate ER 15 MG 1 tablet Orall y every 12 hrs for 30 days 12/19/2024 01/18/2025 Active Wellbutrin XL 300 MG 1 tablet in the mor jennifer Orally Once a day Active Benzonatate 100 MG 1 capsule as needed Orally Three times a day Active Ondansetron HCl 4 MG 1 tablet Orally Onc e a day for 30 day(s) 06/10/2022 Active Imitrex 25 MG 1 tablet at least 2 hours between doses as needed Orally Twice a day 06/10/2022 Active Accu-Chek Guide - as directed In Vitro Active DULoxetine HCl 60 MG 1 capsule Orally On ce a day for 30 days 06/10/2022 Active NovoLOG 100 UNIT/ML moderate sliding sca le Injection TID w meals Active Pantoprazole Sodium 40 mg TAKE ONE TABLE T BY MOUTH EVERY DAY for 30 Active Levothyroxine Sodium 25 mcg TAKE ONE TABLET BY MOUTH EVERY DAY for 30 Active Gabapentin 300 mg TAKE ONE CAPSULE BY MOUTH THREE TIMES DAILY for 30 Active Metoprolol Tartrate 25 mg TAKE ONE TABLE T BY MOUTH TWICE DAILY for 30 Active Social History Tobacco Use: Social History Observation Description Date Details (start date - stop date) Former Smoker NA - NA xTobacco Use/Smoking Question Answer Notes Are you a former smoker How long has it been since you last smoked? > 10 years Alcohol Screen (Audit-C) Question Answer Notes Did you have a drink containing alcohol in the p ast year? No Points 0 Interpretation Negative Problems Problem Type SNOMED Code ICD Code Onset Dates Problem Status W/U Status Risk Notes Problem 630677843 Morbid (severe) obesity due to excess calories (E66.01) Active confirmed Problem 501048531 Hypo-osmolality and hyponatremia (E87.1) Active confirmed Problem 793873737 History of DVT (deep vein thrombosis) (Z86.718) Active confirmed Problem 341691254 Moderate episode of recurrent major depressive disorder (F33.1) Active confirmed Problem 22831575 Atrial fibrillation, unspecified type (I48.91) Active confirmed Problem 862511705 Cellulitis, unspecified cellulitis site (L03.90) Active confirmed Problem 431188731 Long-term insuli n use (Z79.4) Active confirmed Problem 945431640 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) Active confirmed Encounters Encounter Location Date Provider Diagnosis [facility] [address] [place] [address] 12/15/2024 Quang Ricci Moderate episode of recurrent major depressive disorder F33.1 and History of DVT (deep vein thrombosis) Z86.718 [facility] [address] [place] [address] 01/21/2024 Quang Ricci Moderate episode of recurrent major depressive disorder F33.1 ; Long-term insulin use Z79.4 and Chronic kidney disease due to diabetes mellitus E11.22 [facility] [address] [place] [address] 02/11/2024 Christopher Ricci Moderate episode of recurrent major depressive disorder F33.1 ; Morbid (severe) obesity due to excess calories E66.01 and Chronic kidney disease due to diabetes mellitus E11.22 [place] [address] [place] [address] 03/17/2024 Christopher Ricci Moderate episode of recurrent major depressive disorder F33.1 ; Chronic kidney disease due to diabetes mellitus E11.22 ; Long-term insulin use Z79.4 and History of DVT (deep vein thrombosis) Z86.718 [place] [address] [facility] [address] [place] [address] 04/14/2024 Christopher Ricci Moderate episode of recurrent major depressive disorder F33.1 ; History of DVT (deep vein thrombosis) Z86.718 and Morbid (severe) obesity due to excess calories E66.01 [place] [address] [facility] [address] [place] [address] 05/12/2024 Christopher Ricci Moderate episode of recurrent major depressive disorder F33.1 ; Chronic kidney disease due to diabetes mellitus E11.22 and Long-term insulin use Z79.4 [place] [address] [facility] [address] [place] [address] 06/16/2024 Christopher Ricci Moderate episode of recurrent major depressive disorder F33.1 ; History of DVT (deep vein thrombosis) Z86.718 and Chronic kidney disease due to diabetes mellitus E11.22 [place] [address] [facility] [address] [place] [address] 07/28/2024 Christopher Ricci Moderate episode of recurrent major depressive disorder F33.1 ; History of DVT (deep vein thrombosis) Z86.718 ; Long-term insulin use Z79.4 and Morbid (severe) obesity due to excess calories E66.01 [address] [place] [place] [address] 08/18/2024 Christopher Ricci Moderate episode of recurrent major depressive disorder F33.1 ; Morbid (severe) obesity due to excess calories E66.01 and Chronic kidney disease due to diabetes mellitus E11.22 [address] [place] [place] [address] 09/15/2024 Quang Ricci Moderate episode of recurrent major depressive disorder F33.1 and History of DVT (deep vein thrombosis) Z86.[address] [place] [address] 10/13/2024 Quang Ricci Moderate episode of recurrent major depressive disorder F33.1 ; History of DVT (deep vein thrombosis) Z86.718 and Chronic kidney disease due to diabetes mellitus E11.22 [address] [place] [address] 11/10/2024 Quang Ricci Moderate episode of recurrent major depressive disorder F33.1 and Chronic kidney disease due to diabetes mellitus E11.22 [facility] [address] [address] 01/17/2024 [facility] [address] [address] 01/19/2024 Quang Riccizeynep [facility] [address] [place] [address] 01/24/2024 [facility] [address] [address] 02/14/2024 [facility] [address] [place] [address] 03/14/2024 [facility] [address] [address] 03/20/2024 [facility] [address] [address] 03/23/2024 [facility] [address] [place] [address] 04/17/2024 [facility] [address] [address] 04/17/2024 [facility] [address] [place] [address] 04/17/2024 [facility] [address] [place] [address] 04/26/2024 [facility] [address] [place] [address] 04/26/2024 [facility] [address] [place] [address] 05/18/2024 [facility] [address] [place] [address] 06/12/2024 [facility] [address] [facility] [place] [address] 07/10/2024 [facility] [address] [facility] [place] [address] 08/01/2024 [facility] [address] [facility] [place] [address] 08/14/2024 [facility] [address] [facility] [place] [address] 08/25/2024 [facility] [address] [facility] [place] [address] 08/25/2024 [facility] [address] [facility] [place] [address] 08/28/2024 [facility] [address] [facility] [place] [address] 09/25/2024 [facility] [address] [facility] [place] [address] 10/25/2024 [facility] [address] [facility] [place] [address] 11/20/2024 [facility] [address] [facility] [place] [address] 12/19/2024 [facility] Encounter Date Diagnosis (ICD Code) Assessment Notes Treatment Notes Treatment Clinical Notes Section Notes 01/21/2024 Moderate episode of recurrent major depressive disorder (ICD-10 - F33.1) 02/11/2024 Moderate episode of recurrent major depressive disorder (ICD-10 - F33.1) 03/17/2024 Moderate episode of recurrent major depressive disorder (ICD-10 - F33.1) 04/14/2024 Moderate episode of recurrent major depressive disorder (ICD-10 - F33.1) 05/12/2024 Moderate episode of recurrent major depressive disorder (ICD-10 - F33.1) 06/16/2024 Moderate episode of recurrent major depressive disorder (ICD-10 - F33.1) 07/28/2024 Moderate episode of recurrent major depressive disorder (ICD-10 - F33.1) 08/18/2024 Moderate episode of recurrent major depressive disorder (ICD-10 - F33.1) 09/15/2024 Moderate episode of recurrent major depressive disorder (ICD-10 - F33.1) Medications were reviewed. I will continue without changes. Nursing staff is to contact me with any symptoms arising. Orders signed and documented with nursing staff. Vitals taken and recorded at [facility]. 10/13/2024 Moderate episode of recurrent major depressive disorder (ICD-10 - F33.1) Medications were reviewed. I will continue without changes. Nursing staff is to contact me with any symptoms arising. Orders signed and documented with nursing staff. Vitals taken and recorded at [facility]. 11/10/2024 Moderate episode of recurrent major depressive disorder (ICD-10 - F33.1) Medications were reviewed. I will continue without changes. Nursing staff is to contact me with any symptoms arising. Orders signed and documented with nursing staff. Vitals taken and recorded at [facility]. 12/15/2024 Moderate episode of recurrent major depressive disorder (ICD-10 - F33.1) 11/10/2024 Chronic kidney disease due to diabetes mellitus (ICD-10 - E11.22) 12/15/2024 History of DVT (deep vein thrombosis) (ICD-10 - Z86.718) 10/13/2024 History of DVT (deep vein thrombosis) (ICD-10 - Z86.718) 08/18/2024 Morbid (severe) obesity due to excess calories (ICD-10 - E66.01) 09/15/2024 History of DVT (deep vein thrombosis) (ICD-10 - Z86.718) 04/14/2024 History of DVT (deep vein thrombosis) (ICD-10 - Z86.718) 07/28/2024 History of DVT (deep vein thrombosis) (ICD-10 - Z86.718) 05/12/2024 Chronic kidney disease due to diabetes mellitus (ICD-10 - E11.22) 06/16/2024 History of DVT (deep vein thrombosis) (ICD-10 - Z86.718) 03/17/2024 Chronic kidney disease due to diabetes mellitus (ICD-10 - E11.22) 01/21/2024 Long-term insulin use (ICD-10 - Z79.4) 02/11/2024 Morbid (severe) obesity due to excess calories (ICD-10 - E66.01) 01/21/2024 Chronic kidney disease due to diabetes mellitus (ICD-10 - E11.22) 03/17/2024 Long-term insulin use (ICD-10 - Z79.4) 02/11/2024 Chronic kidney disease due to diabetes mellitus (ICD-10 - E11.22) 04/14/2024 Morbid (severe) obesity due to excess calories (ICD-10 - E66.01) 05/12/2024 Long-term insulin use (ICD-10 - Z79.4) 06/16/2024 Chronic kidney disease due to diabetes mellitus (ICD-10 - E11.22) 07/28/2024 Long-term insulin use (ICD-10 - Z79.4) 08/18/2024 Chronic kidney disease due to diabetes mellitus (ICD-10 - E11.22) 10/13/2024 Chronic kidney disease due to diabetes mellitus (ICD-10 - E11.22) 07/28/2024 Morbid (severe) obesity due to excess calories (ICD-10 - E66.01) 03/17/2024 History of DVT (deep vein thrombosis) (ICD-10 - Z86.718) 12/15/2024 Other Medications wer e reviewed. I will continue without changes. Nursing staff is to contact me with any symptoms arising. Orders signed and documented with nursing staff. Vitals taken and recorded at [facility]. 01/21/2024 Other Medications reviewed, orders signed and documented with nursing staff. Vitals taken and recorded at [facility]. 02/11/2024 Other Medications reviewed, orders signed and documented with nursing staff. Vitals taken and recorded at [facility]. 03/17/2024 Other Medications reviewed, orders signed and documented with nursing staff. Vitals taken and recorded at [facility]. 04/14/2024 Other Medications reviewed, orders signed and documented with nursing staff. Vitals taken and recorded at [facility]. 05/12/2024 Other Medications reviewed, orders signed and documented with nursing staff. Vitals taken and recorded at [facility]. 06/16/2024 Other Medications reviewed, orders signed and documented with nursing staff. Vitals taken and recorded at [facility]. 07/28/2024 Other Medications reviewed, orders signed and documented with nursing staff. Vitals taken and recorded at [facility]. 08/18/2024 Other Medications reviewed, orders signed and documented with nursing staff. Vitals taken and recorded at [facility]. 09/15/2024 Other 10/13/2024 Other 11/10/2024 Other Plan Of Treatment No Information Insurance Providers Payer Name Payer Address Payer Phone Subscriber Number Group Number Insured Name Patient Relationship to Insured Coverage Start Date Coverage End Date [place] [address] [address] [place] [address] [id number] Ana Lilia Miller Self - patient is the insured [place] Medicaid [address] [place] [address] [phone] [id number] Ana Lilia Miller Self - patient is the insured Medical (General) History Medical History History ICD Code Cellulitis, unspecified L03.90 Cellulitis of left finger L03.012 Elevated erythrocyte sedimentation rate R70.0 Hypo-osmolality and hyponatremia E87.1 Bile duct stricture K83.1 Morbid obesity due to excess calories E6 6.01 Atrial fibrillation I48.91 Chronic airway obstruction, not elsewher e classified J44.9 Chronic kidney disease due to diabetes m ellitus E11.22 Chronic kidney disease, stage 4 (severe) N18.4 Type 2 diabetes mellitus with diabetic n europathy, unspecified E11.40 Hypothyroidism E03.9 Anxiety F41.9 Chronic diastolic (congestive) heart wagner lure I50.32 Moderate obstructive sleep apnea G47.33 Depression, endogenous F33.2 Dependence on continuous supplemental ox ygen Z99.81 Accelerated essential hypertension I10 Hoarding disorder F42.3 Acute paronychia of finger of left hand Chronic anticoagulation congestive heart failure hypertension hyponatremia Oxygen dependant neuropathy Surgical History Surgery Date(Month/Year) Dental surgery Post biopsy of skin Hospitalization History Reason Date(Month/Year) heart attack 11/2021 Abdomen/Pelvis CTA 01/26/22
--- OUTSIDE RECORDS SUMMARY | 2025-01-16 22:15 | XMS_ITS | Clinical Summary ---
Author Organization [facility] Address [address] Ritchien: [place] [id number] Care Team Providers Care Avp Name Role Phone Mervat Nguyen MD Primary Care Provider [phone] [phone] Allergies Active Allergy Reactions Criticality Noted Date Comments Aspartame Headache Low 03/05/2020 Food Extracts Headache Low 03/04/2020 Mushroom Hives High 06/10/2016 Sucralose Headache Low 03/05/2020 Tetracycline Hives High 03/04/2020 Medications apixaban (ELIQUIS) 5 mg tablet Take 1 Tablet (5 mg) by mouth 2 times daily. 120 Tablet 1 0 Active buPROPion HCL (WELLBUTRIN SR) 200 mg Sustained Release 12 hour tablet Take 1 Tablet (200 mg) by mouth daily. 90 Tablet 1 0 Active furosemide (LASIX) 40 mg tablet Take 1 Tablet (40 mg) by mouth daily. 90 Tablet 1 0 Active fluticasone furoate-vilante roL (BREO ELLIPTA) 100-25 mcg/dose Disk with Device Take 1 Puff by inhalation daily. 0 Active pantoprazole (PROTONIX) 40 mg Tablet, Delayed Release (E.C.) Take 1 Tablet (40 mg) by mouth daily. 30 Tablet 0 0 Active metoprolol tartrate (LOPRESSOR) 25 mg tablet Take 1 Tablet (25 mg) by mouth 2 times daily. 120 Tablet 1 0 Active insulin lispro (HumaLOG) 100 unit/mL pen syringe Inject 0-7 Units by subcutaneous injection 3 times daily with meals. Give when NPO or WITH MEAL. Medium-Dose Meal Correction: Less than or equal to 139 = no correctional insulin 140 - 175 = give and/or add 1 unit 176 - 200 = give and/or add 2 units 201 - 250 = give and/or add 3 units 251 - 299 = give and/or add 5 units Greater than 300 = give and/or add 7 unitsCONTACT PROVIDER- If blood sugar greater than 250 mg/dL- If blood sugar greater than 180 mg/dL for two consecutive readings 15 mL 1 0 Active sertraline (ZOLOFT) 100 mg tablet Take 1 Tablet (100 mg) by mouth daily. 9 Tablet 1 0 Active umeclidinium (INCRUSE ELLIPTA) 62.5 mcg/actuation Disk with Device Take 1 Puff by inhalation daily. 30 Each 1 0 Active insulin glargine (LANTUS) 100 unit/mL injection Inject 10 Units by subcutaneous injection daily with breakfast. 15 mL 1 0 Active levothyroxine 25 mcg tablet Take 1 Tablet (25 mcg) by mouth daily hog raiser. 90 Tablet 1 0 Active bi-level machine Bilevel CWP with heated humidifier. Length of Need: 99 mo full face with headgear 1 per 6 mo, mask only 1 per 3 mo,1 cushions per mo, Tubing heated 1 per 3 mo, water chamber 1 per 6 months, chin strap 1 per 6 months, filters disposable 2 per month, filters reusable 1 per 6 months Dx:. G47.33. 1 Each PRN 7 Active Active Problems Problem Noted Date Diagnosed Date Acute on chronic respiratory failure with hypoxi a 03/03/2020 A-fib 03/03/2020 Acute encephalopathy 03/03/2020 Hyponatremia 03/03/2020 Acute kidney injury superimposed on CKD 03/03/20 20 Morbid obesity with BMI of 60.0-69.9, adult 02/10 Elevated lactic acid level 03/03/2020 Severe sepsis without septic shock 03/03/2020 CHF (congestive heart failure) 03/03/2020 Type 2 diabetes mellitus wit h hyperglycemia, with long-term current use of insulin 03/03/2020 COPD (chronic obstructive pulmonary disease) Essential hypertension 03/03/2020 Family History Medical History Relation Name Comments Ovarian Cancer Maternal Cousin pos respon ses-see media tab Breast Cancer Maternal Grandmother 52 Relation Name Status Comments Maternal Cousin Maternal Grandmother Social History Tobacco Use Types Packs/Day Years Used Date Smoking Tobacco: Former Comments Unknown Sex and Gender Information Value Date Recorded Sex Assigned at Not on file 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 Gender Identity Not on file Sexual Orientation Not on file Last Filed Vital Signs Vital Sign Reading Time Taken Comments Blood Pressure 137/75 03/07/2020 11:02 AM CDT Pulse 76 03/07/2020 11:02 AM CDT Temperature 36.3 C (97.3 F) 03/07/2020 11:02 AM CDT Respiratory Rate 18 03/07/2020 11:0 2 AM CDT Oxygen Saturation - - Inhaled Oxygen Concentration - - Weight 184.3 kg (406 lb 4.8 oz) 03/07/2020 4:06 AM CDT Height 177.8 cm (5' 10 ) 03/05/2020 4:23 AM CDT Body Mass Index 58.3 03/05/2020 4:23 AM CDT Plan of Treatment Health Maintenance Due Date Last Done Comments DIABETES ANNUAL FOOT EXAM 1983 DIABETES ANNUAL RETINAL EXAM 1983 DIABETES HBA1C Q 6 MONTHS 1983 LDL CHOLESTEROL ANNUAL 1983 DTAP/TDAP/TD VACCINES (1 - Tdap) 1984 HEPATITIS B VACCINES (1 of 3 - 19+ 3-dose series) 05/13 HPV/Cotest (21-29) 1986 CERVICAL CANCER SCREENING 1995 HPV/Cotest (30-65) 1995 PAP SMEAR 1995 COLORECTAL SCREENING 2010 Colorectal Cancer Screening 2010 FIT-DNA Q 3 years 2010 FIT/FOBT Q 1 year 2010 Flex Sig/CT Colonography Q 5 years 2010 ZOSTER VACCINE (1 of 2) 2015 BREAST CANCER SCREENING 03/07/2016 03/07/2015 DIABETES MICROALBUMIN ANNUAL SCREEN 02/13/202102/13 INFLUENZA VACCINE (#1) 2025 Procedures Procedure Name Priority Date/Time Associated Diagnosis Comments MICROALBUMIN/CREATI NINE RATIO, RANDOM UR Routine 02/14/2020 7:05 AM CDT MAMMO SCREEN BILAT W OR WO CAD Routine 03/07/2015 1:35 PM CDT Other screening mammogram from Last 3 Months or Most Recently Relevant to Health Maintenance Results * (ABNORMAL) MICROALBUMIN/CREATININE RATIO, RANDOM UR (02/14/2020 7:05 AM CDT) ALBUMIN, URINE 26.5 mg/L 02/16/2020 12:39 PM CDT [facility] Comment: ADDITIONAL INFORMATION This test has been modified from the beef boner's instructions. Its performance characteristics were determined by [facility] in a manner consistent with CLIA requirements. This test has not been cleared or approved by the U.S. Food and Drug Administration. CREATININE, URINE 68 mg/dL 020 12:39 PM CDT [facility] ALBUMIN/CREATININE RATIO 39(H) <25 mg/g 02/16/2020 12:39 PM CDT [facility] Comment: Test Performed by: [place] [address] Cider Maker: Calvin Mayo M.D. Ph.D.; CLIA# [id number] Urine URINE SPECIMEN OBTAINED BY CLEAN CATCH PROCEDURE / Unknown Collection / Unknown 02/14/2020 7:05 AM CDT 02/15/2020 11:29 AM CDT us Logan Mcdowell MD URINE ORDERABLES Final Result [facility] * MAMMO SCREEN BILAT W OR WO CAD (03/07/2015 1:35 PM CDT) Anatomical Region Laterality Modality Breast Bilateral Other Addenda Addendum by Dimas Epps MD on 03/15/2015 12:34 PM CDT ADDENDUM TO SCREENING MAMMOGRAM OF 03/07/2015: Comparison is made with prior analog exams that have been digitized dated 01/28/2007 and 08/05/2006. Apparently those are the most recent prior exams. The bilateral dense nodular tissue is stable. The small nodule anteriorly in the subareolar region on the left is stable. The calcifications have developed in the interval, but they appear to be peripheral large round popcorn-type calcifications in keeping with a calcifying small fibroadenoma. No suspicious findings are seen. CONCLUSION: Benign finding category 2. No significant mammographic change is seen. I would recommend follow-up screening mammogram in one year. JAN/mckayla - transcribed in Epic - Impressions 03/15/2015 12:34 PM CDT Prior studies are needed for comparison to determine any new finding of concern. If no prior studies are made available in 2-3 weeks, the patient will need to return for further evaluation of bilateral breast findings, with standard magnification views and true lateral views. Probable ultrasound. . AUSTIN/elza 1130 AM - uploaded from [employer] - Narrative 03/15/2015 12:34 PM CDT BILATERAL SCREENING MAMMOGRAM PATIENT COMPLAINT: No concerns. FAMILY HISTORY: Breast cancer in maternal grandmother at age 52. Ovarian cancer in maternal cousin at age 19. TISSUE DENSITY: Heterogeneously dense. COMPARISON EXAM(S): None. Prior studies are being requested. IMAGES OBTAINED: Standard 4-view mammogram. FINDINGS: RIGHT BREAST: Nodularity in the upper outer quadrant, possible lymph nodes. Scattered irregular and nodular focal asymmetries. LEFT BREAST: Prominent probable intramammary lymph node in the upper outer quadrant posterior depth. Smaller adjacent nodule. Prominent dense heterogeneous asymmetric tissue in the upper outer quadrant into the lower outer quadrant posteriorly. Scattered irregular and nodular focal asymmetries. Low density nodule with associated calcifications in the 12-1 o'clock anterior depth. This digital mammogram was also analyzed by the Computer Aided Detection System (CAD), [employer], Version 8.3. Procedure Note Dimas Epps MD - 11/26/2021 BILATERAL SCREENING MAMMOGRAM PATIENT COMPLAINT: No concerns. FAMILY HISTORY: Breast cancer in maternal grandmother at age 52. Ovarian cancer in maternal cousin at age 19. TISSUE DENSITY: Heterogeneously dense. COMPARISON EXAM(S): None. Prior studies are being requested. IMAGES OBTAINED: Standard 4-view mammogram. FINDINGS: RIGHT BREAST: Nodularity in the upper outer quadrant, possible lymph nodes. Scattered irregular and nodular focal asymmetries. LEFT BREAST: Prominent probable intramammary lymph node in the upper outer quadrant posterior depth. Smaller adjacent nodule. Prominent dense heterogeneous asymmetric tissue in the upper outer quadrant into the lower outer quadrant posteriorly. Scattered irregular and nodular focal asymmetries. Low density nodule with associated calcifications in the 12-1 o'clock anterior depth. This digital mammogram was also analyzed by the Computer Aided Detection System (CAD), [employer], Version 8.3. IMPRESSION Prior studies are needed for comparison to determine any new finding of concern. If no prior studies are made available in 2-3 weeks, the patient will need to return for further evaluation of bilateral breast findings, with standard magnification views and true lateral views. Probable ultrasound. . AUSTIN/elza 1130 AM - uploaded from [employer] Sc[employer] - us Esmer Rubio APN MAMMO ORDERABLES Final Resu lt from Last 3 Months or Most Recently Relevant to Health Maintenance Insurance * Guarantor: ANA LILIA MILLER Account Type Relation to Patient Date of Phone Billing Address Personal/Family [address] [place] [id number] [address] [facility] Medicare Part D Care Teams Avp Relationship Specialty Start Date End Date Mervat Nguyen MD [address] [place] [address] PCP - General Internal Medicine 03/06/20
--- OUTSIDE RECORDS SUMMARY | 2025-01-16 22:15 | XMS_ITS | Encounter Summary ---
Author Organization [facility] Address [address] [place] [address] Care Team Providers Care Commissioner Of Officials Name Role Phone Mervat Nguyen MD Primary Care Provider [phone] [phone] Reason for Referral * Outpatient Services (Routine) - Closed Specialty Diagnoses / Procedures Referred By Contac t Referred To Contact Diagnoses Chronic kidney disease, stage III (moderate) (CMS/HCC) Procedures US RENAL Hayley Chavez NP [facility] Pre-Registration [place] CALL TO MAKE APPOINTMENT ONLY [address] [place] [address] Phone: tel: fax: Referral ID Status Reason Start Date Expiration Date V isits Requested Visits Authorized [id number] Closed SGF [facility] TO SCHEDULE (SGF) 03/15/2015 04/14/2016 1 1 Encounter Details Date Type Department Care Team (Latest Contact Info) Description 03/15/2015 Ancillary Orders [facility] Pre-Registration [place] CALL TO MAKE APPOINTMENT ONLY [address] [place] [address] Hayley Chavez NP NO ADDRESS ON FILE Chronic kidney disease, stage III (moderate) (CMS/HCC) (Primary Dx) Social History Tobacco Use Types Packs/Day Years Used Date Smoking Tobacco: Never Assessed Comments Unknown Sex and Gender Information Value Date Recorded Sex Assigned at Not on file Legal Sex Female 12:56 PM CDT Gender Identity Not on file Sexual Orientation Not on file documented as of this encounter Plan of Treatment Not on file documented as of this encounter Results * US RENAL (04/01/2015 11:48 AM CDT) Anatomical Region Laterality Modality Abdomen Ultrasound 04/01/2015 10:4 8 AM CDT Narrative 04/01/2015 2:43 PM CDT US RENAL, Apr 01, 2015 10:48:06 AM . REASON FOR EXAM: Chronic kidney disease, stage III (moderate). COMPARISON: None . TECHNIQUE: Multiplanar real-time ultrasonography of the retroperitoneum and urinary tract using vidal-scale imaging, supplemented by color and spectral Doppler as needed. . FINDINGS: . Right kidney: The renal cortical echogenicity is normal. Lobulated contour suggest scarring. No discrete mass or hydronephrosis. Renal length = 12.1 cm. . Left kidney: The renal cortical echogenicity is normal. Lobulated contour suggest scarring. No discrete mass or hydronephrosis. Renal length = 12.1 cm. . Additional comments: None . ++++++++++++++++++++ IMPRESSION Bilateral renal scarring without hydronephrosis. Procedure Note Shemar Hagan MD - 04/01/2015 US RENAL, Apr 01, 2015 10:48:06 AM . REASON FOR EXAM: Chronic kidney disease, stage III (moderate). COMPARISON: None . TECHNIQUE: Multiplanar real-time ultrasonography of the retroperitoneum and urinary tract using vidal-scale imaging, supplemented by color and spectral Doppler as needed. . FINDINGS: . Right kidney: The renal cortical echogenicity is normal. Lobulated contour suggest scarring. No discrete mass or hydronephrosis. Renal length = 12.1 cm. . Left kidney: The renal cortical echogenicity is normal. Lobulated contour suggest scarring. No discrete mass or hydronephrosis. Renal length = 12.1 cm. . Additional comments: None . ++++++++++++++++++++ IMPRESSION Bilateral renal scarring without hydronephrosis. us Hayley Chavez NP US ORDERABLES Final Result documented in this encounter Visit Diagnoses Diagnosis Chronic kidney disease, stage III (moderate) (CMS/HCC)- Primary Chronic kidney disease, Stage III (moderate) Chronic kidney disease, stage III (moderate) (CMS/HCC) Chronic kidney disease, Stage III (moderate) documented in this encounter Additional Health Concerns Infection Onset Date Last Indicated Resolved Time R/O COVID-19 03/03/2020 03/03/2020 03/03/2020 11:0 6 PM CDT documented as of this encounter Care Teams Commissioner Of Officials Relationship Specialty Start Date End Date Mervat Nguyen MD [address] [place] [address] PCP - General Internal Medicine 03/06/20 documented as of this encounter
--- OUTSIDE RECORDS SUMMARY | 2025-01-16 22:15 | XMS_ITS | Encounter Summary ---
Author Organization [facility] Address [address] [place] [address] Care Team Providers Care Orange Picker Machine Operator Name Role Phone Mervat Nguyen MD Primary Care Provider [phone] [phone] Reason for Referral * Outpatient Services (Routine) - Closed Specialty Diagnoses / Procedures Referred By Contcarlos t Referred To Contact Diagnoses Other screening mammogram Procedures MAMMO DIGITAL SCREEN BILAT Esmer Rubio APN Phone: tel: fax: [facility] Pre-Registration [place] CALL TO MAKE APPOINTMENT ONLY [address] [place] [address] Phone: tel: fax: Referral ID Status Reason Start Date Expiration Date V isits Requested Visits Authorized [id number] Closed F [facility] TO SCHEDULE (SGF) 12/05/2014 01/05/2016 1 1 Encounter Details Date Type Department Care Team (Latest Contact Info) Description 12/05/2014 Ancillary Orders [facility] Pre-Registration [place] CALL TO MAKE APPOINTMENT ONLY [address] [place] [address] Esmer Rubio APN [address] [place] [address] Other screening mammogram (Primary Dx) Social History Tobacco Use Types [...] documented as of this encounter Results * MAMMO DIGITAL SCREEN BILAT (03/07/2015 1:35 PM CDT) Anatomical Region Laterality Modality Breast Bilateral Mammography 03/07/2015 1:02 PM CDT Addenda Addendum by Kristi Dawson MD on 03/15/2015 12:34 PM CDT ADDENDUM [...] recommend follow-up screening mammogram in one year. KB/jaw - transcribed in Epic - Impressions 03/12/2015 9:01 PM CDT IMPRESSION: Prior studies are needed for comparison to determine any new finding of concern. If no prior studies are made available in 2-3 weeks, the patient will need to return for further evaluation of bilateral breast findings, with standard magnification views and true lateral views. Probable ultrasound. . AUSTIN/elza 1130 AM - uploaded from [employer] - Narrative 03/12/2015 9:01 PM CDT BILATERAL SCREENING MAMMOGRAM PATIENT COMPLAINT: [...] by the Computer Aided Detection System (CAD), [employer], Version 8.3. Esmer Rubio APN MAMMO ORDERABLES Edited Res ult - Final documented in this encounter Visit Diagnoses Diagnosis Other screening mammogram- Primary documented in this encounter Additional Health Concerns Infection Onset Date Last Indicated Resolved Time R/O COVID-19 03/03/2020 03/03/2020 03/03/2020 11:0 6 PM CDT documented as of this encounter Care Teams Orange Picker Machine Operator Relationship Specialty Start Date End Date Mervat Nguyen MD [address] [place] [address] PCP - General Internal Medicine 03/06/20 documented as of this encounter
--- OUTSIDE RECORDS SUMMARY | 2025-01-16 22:15 | XMS_ITS | Encounter Summary ---
Author Organization [facility] Address [address] [place] [address] Care Team Providers Care Video And Sound Recorder Name Role Phone Mervat Nguyen MD Primary Care Provider [phone] [phone] Encounter Details Date Type Department Care Team (Late st Contact Info) Description 10/23/2020 Lab Requisition [facility] Laboratory Services [id number] [place] [address] Logan Mcdowell MD [address], [place] [address] Social History Tobacco Use Types Packs/Day Years [...] Procedure Name Priority Date/Time Associated Diagnosis Comments PROTEIN , RANDOM URINE Routine 10/22/2020 4:48 AM CDT documented in this encounter Results * PROTEIN/CREATININE RATIO, URINE (10/22/2020 4:48 AM CDT) PROTEIN CONCENTRATION 13 0 - 20 mg/dL 10/23/2020 12:14 PM CDT [facility] CREATININE, URINE 68.4 29.0 - 226.0 mg/dL 10/23/2020 12:14 PM CDT [facility] Comment:Reference Range vari es with fluid intake and diet. PROTEIN/CREAT RATIO, URINE 0.19 0.00 - 0.19 mg/mg Creatinine 10/23/2020 12:14 PM CDT [facility] Urine URINE SPECIMEN OBTAINED BY CLEAN CATCH PROCEDURE / Unknown 10/22/2020 4:48 AM CDT 10/23/2020 11:40 AM CDT Logan Mcdowell MD URINE ORDERABLES Final Result [facility] 4th aspect [facility] [address] [place] [address] documented in this encounter Visit Diagnoses Not on filedocumented in this encounter Care Teams Video And Sound Recorder Relationship Specialty Start Date End Date Mervat Nguyen MD [address] [place] [id number] PCP - General Internal Medicine 03/06/20 documented as of this encounter
--- OUTSIDE RECORDS SUMMARY | 2025-01-16 22:15 | XMS_ITS | Encounter Summary ---
Author Organization [facility] Address [address] [place] [address] Care Team Providers Care Orchid Transplanter Name Role Phone Mervat Nguyen MD Primary Care Provider [phone] [phone] Encounter Details Date Type Department Care Team (Late st Contact Info) Description 03/13/2020 Lab Requisition [facility] Laboratory Services [address] [place] [address] Logan Mcdowell MD [address] [address] Social History Tobacco Use Types Packs/Day Years Used Date Smoking Tobacco: Former Comments Unknown Sex and Gender Information Value Date Recorded Sex Assigned at Not on file Legal Sex Female 12:56 PM CDT Gender Identity Not on file Sexual Orientation Not on file COVID-19 Exposure Response Date Recorded In the last month, have you been in contact with someone who was confirmed or suspected to have Coronavirus / COVID-19? No / Unsure 03/05/2020 4:17 AM CDT documented as of this encounter Plan of Treatment Not on file documented as of this encounter Procedures Procedure Name Priority Date/Time Associated Diagnosis Comments DIFFERENTIAL, MANUAL Routine 03/13/2020 5:58 AM CDT CBC WITH DIFFERENTIAL Routine 03/13/2020 5:58 AM CDT documented in this encounter Results * MANUAL DIFFERENTIAL (03/13/2020 5:58 AM CDT) PLATELET EST. Adequate 03/13/2020 4:43 PM CDT [facility] ANISOCYTOSIS 2+ /hpf 03/13/2020 4:43 PM CDT [facility] POIKILOCYTES 2+ /hpf 03/13/2020 4:43 PM CDT [facility] POLYCHROMASIA 1+ /hpf 03/13/2020 4:43 PM CDT [facility] BASOPHILIC STIPPLING 1+ /hpf 03/13/2020 4:43 PM CDT [facility] HYPOCHROMIA 1+ /hpf 03/13/2020 4:43 PM CDT [facility] OVALOCYTES 1+ /hpf 03/13/2020 4:43 PM CDT [facility] Blood Collection / Unknown 03/13/2020 5:58 AM CDT 03/13/2020 3:55 PM CDT Logan Mcdowell MD HEMATOLOGY ORDERABLES COM Final Result [facility] [address] [place] [address] * (ABNORMAL) CBC WITH DIFFERENTIAL (03/13/2020 5:58 AM CDT) WBC 8.2 4.8 - 10.8 K/uL 03/13/2020 4:43 PM CDT [facility] RBC 3.31(L) 4.20 - 5.40 M/uL 03/13/2020 4:43 PM CDT [facility] HEMOGLOBIN 8.7(L) 12.0 - 16.0 g/dL 03/13/2020 4:43 PM CDT [facility] HEMATOCRIT 32.2(L) 36.0 - 46.0 % 03/13/2020 4:43 PM CDT [facility] MCV 97.3 84.0 - 103.0 fL 03/13/2020 4:43 PM CDT [facility] MCH 26.3(L) 27.0 - 34.0 pg 03/13/2020 4:[address] [facility] MCHC 27.0(L) 30.0 - 35.0 g/dL 03/13/2020 4:[address] [facility] RDW 21.2(H) 11.0 - 14.5 % 03/13/2020 4:[address] [facility] RDW-STDEV 75.7(H) 37.0 - 54.0 fL 03/13/2020 4:[address] [facility] PLATELETS 309 140 - 440 K/uL 03/13/2020 4:[address] [facility] MPV 11.1 8.9 - 12.8 fL 03/13/2020 4:[address] [facility] NEUTROPHILS 76(H) 42 - 75 % 03/13/2020 4:[address] [facility] LYMPHOCYTES 14(L) 24 - 44 % 03/13/2020 4:[address] [facility] MONOCYTES 5 2 - 10 % 03/13/2020 4:[address] [facility] EOSINOPHILS 4 0 - 7 % 03/13/2020 4:[address] [facility] BASOPHILS 0 0 - 1 % 03/13/2020 4:[address] [facility] IMMATURE GRANULOCYTES 1 0 - 2 % 03/13/2020 4:[address] [facility] NEUTROPHIL ABSOLUTE 6.24 2.00 - 8.00 K/uL 03/13/2020 4:[address] [facility] LYMPHOCYTE ABSOLUTE 1.15(L) 1.20 - 4.00 K/uL 03/13/2020 4:[address] [facility] MONOCYTE ABSOLUTE 0.39 0.10 - 0.60 K/uL 03/13/2020 4:[address] [facility] EOSINOPHIL ABSOLUTE 0.31 0.00 - 0.70 K/uL 03/13/2020 4:[address] [facility] BASOPHILS ABSOLUTE 0.02 0.00 - 0.20 K/uL 03/13/2020 4:[address] [facility] IMMATURE GRANULOCYTES ABSOLUTE 0.07 0.00 - 0.10 K/uL 03/13/2020 4:43 PM CDT [facility] REVIEWED ON SMEAR 03/13/2020 4:43 PM CDT [facility] Blood Collection / Unknown 03/13/2020 5:58 AM CDT 03/13/2020 3:55 PM CDT us Logan Mcdowell MD HEMATOLOGY ORDERABLES Final Resu lt [facility] [address] [place] [address] documented in this encounter Visit Diagnoses Not on filedocumented in this encounter Care Teams Orchid Transplanter Relationship Specialty Start Date End Date Mervat Nguyen MD [address] [place] [phone] PCP - General Internal Medicine 03/06/20 documented as of this encounter
--- OUTSIDE RECORDS SUMMARY | 2025-01-16 22:15 | XMS_ITS | Clinical Summary ---
Author Organization [facility] field Address [address] [place] [address] Phone Care Team Providers Care Clothing Presser Name Role Phone Mervat Nguyen MD Primary Care Provider [phone] Allergies Active Allergy Reactions Criticality Noted Date Comments Aspartame Headache Low 03/05/2020 Food Extracts Headache Low 03/04/2020 Mushroom Hives High 06/10/2016 Sucralose Headache Low 03/05/2020 Tetracycline Hives High 03/04/2020 Medications bi-level machine Bilevel 20 / 15 CWP with heated humidifier. Length of Need: 99 mo full face with headgear 1 per 6 mo, mask only 1 per 3 mo,1 cushions per mo, Tubing heated 1 per 3 mo, water chamber 1 per 6 months, chin strap 1 per 6 months, filters disposable 2 per month, filters reusable 1 per 6 months Dx:. G47.33. 1 Each 7 Active apixaban (ELIQUIS) 5 mg tablet Take 1 Tablet (5 mg) by mouth 2 times daily. 120 Tablet 1 0 Active buPROPion HCL (WELLBUTRIN SR) 200 mg Sustained Release 12 hour tablet Take 1 Tablet (200 mg) by mouth daily. 90 Tablet 1 0 Active fluticasone furoate-vilante roL (BREO ELLIPTA) 100-25 mcg/dose Disk with Device Take 1 Puff by inhalation daily. 0 Active furosemide (LASIX) 40 mg tablet Take 1 Tablet (40 mg) by mouth daily. 90 Tablet 1 0 Active insulin glargine (LANTUS) 100 unit/mL injection Inject 10 Units by subcutaneous injection daily with breakfast. 15 mL 1 0 Active insulin lispro (HumaLOG) 100 [...] than 300 = give and/or add 7 units CONTACT PROVIDER - If blood sugar greater than 250 mg/dL - If blood sugar greater than 180 mg/dL for two consecutive readings 15 mL 1 0 Active levothyroxine 25 mcg tablet Take 1 Tablet (25 mcg) by mouth daily rigging up man. 90 Tablet 1 0 Active metoprolol tartrate (LOPRESSOR) 25 mg tablet Take 1 Tablet (25 mg) by mouth 2 times daily. 120 Tablet 1 0 Active sertraline (ZOLOFT) 100 mg tablet Take 1 Tablet (100 mg) by mouth daily. 9 Tablet 1 0 Active umeclidinium (INCRUSE ELLIPTA) 62.5 mcg/actuation Disk with Device Take 1 Puff by inhalation daily. 30 Each 1 0 Active pantoprazole (PROTONIX) 40 mg Tablet, Delayed Release (E.C.) Take 1 Tablet (40 mg) by mouth daily. 30 Tablet 0 Active Active Problems Problem Noted Date Diagnosed Date Acute on chronic respiratory failure with hypoxi a 03/03/2020 Acute kidney injury superimposed on CKD 03/03/20 20 Severe sepsis without septic shock 03/03/2020 A-fib 03/03/2020 Morbid obesity with BMI of 60.0-69.9, adult 02/10 Acute encephalopathy 03/03/2020 Elevated lactic acid level 03/03/2020 CHF (congestive heart failure) 03/03/2020 Type 2 diabetes mellitus wit h hyperglycemia, with long-term current use of insulin 03/03/2020 Hyponatremia 03/03/2020 Essential hypertension 03/03/2020 COPD (chronic obstructive pulmonary disease) Family History Medical History Relation Name Comments [...] 03/07/2020 11:0 2 AM CDT Oxygen Saturation 94% 03/07/2020 11: 02 AM CDT Inhaled Oxygen Concentration - - Weight 184.3 kg (406 lb 4.8 oz) 03/07/2020 4:06 AM CDT Height 177.8 cm (5' 10 ) 03/05/2020 4:23 AM CDT Body Mass Index 58.3 03/05/2020 4:23 AM CDT Plan of Treatment Health Maintenance Due Date Last Done Comments DIABETES ANNUAL FOOT EXAM 1983 DIABETES ANNUAL RETINAL EXAM 1983 LDL CHOLESTEROL ANNUAL 1983 DTAP/TDAP/TD VACCINES [...] 2015 BREAST CANCER SCREENING 03/07/2016 03/07/2015 DIABETES HBA1C Q 6 MONTHS 02/14/2020 08/16/2019 DIABETES MICROALBUMIN ANNUAL SCREEN 02/13/202102/13 INFLUENZA VACCINE [...] URINE 26.5 mg/L 02/16/2020 12:39 PM CDT [place] [employer] [facility] Comment: ADDITIONAL INFORMATION This test has been modified from the commercial designer's instructions. Its performance characteristics were determined by [facility] in a manner consistent with CLIA requirements. This test has not been cleared or approved by the U.S. Food and Drug Administration. CREATININE, URINE 68 mg/dL 020 12:39 PM CDT [facility] [employer] [facility] ALBUMIN/CREATININE RATIO 39(H) <25 mg/g 02/16/2020 12:39 PM CDT [facility] [employer] [facility] Comment: Test Performed by: [address] [address] Food Demonstrator: Calvin Mayo M.D. Ph.D.; CLIA# [id number] Urine URINE SPECIMEN OBTAINED BY CLEAN CATCH PROCEDURE / Unknown Collection / Unknown 02/14/2020 7:05 AM CDT 02/14/2020 5:35 PM CDT us Logan Mcdowell MD URINE ORDERABLES Final Result [place] [facility] [facility] * MAMMO DIGITAL SCREEN BILAT (03/07/2015 1:35 [...] JAN/mckayla - transcribed in Epic - Impressions 03/12/2015 [...] . [place]UST[place]/elza 1130 AM - uploaded from [employer] - Narrative 03/12/2015 9:01 PM CDT BILATERAL [...] by the Computer Aided Detection System (CAD), [employer], Version 8.3. Esmer Rubio APN MAMMO ORDERABLES Edited Res ult - Final from Last 3 Months or Most Recently Relevant to Health Maintenance Insurance MEDICAID [place] MEDICARE PART A AND B RX [facility] Medicare Part D Advance Directives For more information, please contact: [phone] * Full Code (Latest Code Status on File) Date Activated Date Inactivated Comments 03/03/2020 7:52 PM 03/07/2020 4:56 PM Care Teams Clothing Presser Relationship Specialty Start Date End Date Mervat Nguyen MD [address] [place] [address] PCP - General Internal Medicine 03/06/20
[2025-01-16 22:30] VITALS: BP 111/79; PULSE 96; O2SAT 99
--- NOTE | 2025-01-16 22:56 | ED_ITS ---
HPI - Extremity Problem General: Chief complaint: Extremity Injury, Lower Stated complaint: FALL Time Seen by Provider: 01/16/25 21:47 Source: patient Mode of arrival: EMS Limitations: no limitations History of Present Illness: 59yo female presents via EMS from [facility] for evaluation of bilateral knee pain following a fall that occurred between 1899 & 1999 this evening. Patient reports that she does not normally ambulate, she uses a wheelchair. States they were using the sit to stand when the patient's knees buckled and she was lowered to the ground. States that her legs went underneath her. Patient reports that she has bilateral knee pain rating a 9/10. Patient states that she does also use a Pelon lift. Patient is on oxygen at 4 L continuously. Associated symptoms: Deny fever(s) Related Data Home Medications ?Medication ?Instructions ?Recorded ?Confirmed gabapentin 300 mg capsule 300 mg PO TID@0500,1300,2100 10/05/19 01/09/25 levothyroxine 25 mcg tablet 25 mcg PO DAILY@0500 03/0301/09/25 ondansetron HCl 4 mg tablet 4 mg PO Q6H PRN Nausea And Vomiting 03/03/20 01/09/25 apixaban 5 mg tablet (Eliquis) 5 mg PO Q12H 06/18/20 0 01/09/25 pantoprazole 40 mg tablet,delayed 40 mg PO DAILY@0500 06/18/20 01/09/25 release sumatriptan succinate 25 mg tablet 25 mg PO Q6H PRN Mi graine Headache 06/18/20 01/09/25 (Imitrex) acetaminophen 325 mg tablet 650 mg PO Q4H PRN pain or elevated 10/10/23 01/09/25 temp benzonatate 100 mg capsule 100 mg PO QID PRN Cough 01/09/25 duloxetine 60 mg capsule,delayed 60 mg PO DAILY 01/09/25 release morphine 15 mg tablet,extended 15 mg PO BID 10/10/23 0 01/09/25 release albuterol sulfate 1.25 mg/3 mL 2.5 mg inhalation QID 0 08/08/24 01/09/25 solution for nebulization cetirizine 10 mg tablet 10 mg PO DAILY PRN Allergy S ymptoms 08/08/24 01/09/25 guaifenesin 600 mg tablet, 600 mg PO Q12H PRN ALLERGIE S 08/08/24 01/09/25 extended release 12 hr metoprolol succinate 100 mg 100 mg PO DAILY 08/08/24 0 01/09/25 tablet,extended release 24 hr semaglutide 1 mg/dose (4 mg/3 mL) 1 mg SUBCUT .weekly 08/08/24 01/09/25 subcutaneous pen injector (Ozempic) topiramate 50 mg capsule,extended 50 mg PO DAILY 08/0801/09/25 release 24 hr insulin aspart See Rx Instructions .Route . COMPLEX 08/11/24 01/09/25 (niacinamide)(U-100) 100 unit/mL(3 mL) subcutaneous pen (Fiasp FlexTouch U-100 Insulin) Previous Rx's ?Medication ?Instructions ?Recorded blood-glucose sensor (DexRepeatit G7 #3 ea 12/08/23 Sensor device) blood-glucose,impregnator and drier,cont #1 ea 12/08/23 (Dexcom G7 Energy Conservation Representative) diabetic shoes w/ 3 inserts #1 ea 12/20/23 lidocaine 5 % topical patch 2 patch topical DAILY #30 ea 01/16/25 Allergies Allergy/AdvReac Type Severity Reaction Status Date / Time Tetracyclines Allergy Severe ALGY-Anaphy Verified 01/09/25 08:08 laxis wool Allergy Intermediate ALGY-Hives Verified 01/09/25 08:08 mushroom Allergy Unknown Verified 01/09/25 08:08 adhesive AdvReac Unknown Verified 01/09/25 08:08 Artificial Sweetners AdvReac Intermediate ADR-Headach Uncoded 01/09/25 08:08 e Review of Systems Const: Denies: fever(s), chills or body aches Musc: Reports: joint pain (Bilateral knee pain) PFSH ED PFSH: Medical History (Updated 01/16/25 @ 23:13 by CORI Gifford) Renovascular hypertension Acute paronychia of finger of left hand 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 Morbid obesity Hyponatremia Hypertension Hoarding disorder with excessive acquisition Generalized anxiety disorder Major depressive disorder, recurrent severe without psychotic features COPD (chronic obstructive pulmonary disease) Oxygen dependent Chronic anticoagulation On hold due to vaginal bleeding Congestive heart failure Hypertension Hypothyroidism DELMIS (obstructive sleep apnea) Atrial fibrillation Surgical History Status post biopsy of skin History of dental surgery Family History Other CAD (coronary artery disease) Chronic kidney disease (CKD) Diabetes Hyperlipidemia Hypertension Lung disease Thyroid disease Social History Smoking and tobacco/nicotine status: former use of tobacco/nicotine Quit status (tobacco/nicotine): has quit using Year quit tobacco: 2006 [id number] Second hand smoke exposure: No Alcohol intake: never Substance/Drug Use: never Lives independently: No Housing: Intermediate Marital status: Marital status details: is wheelchair-bound, Current occupational status: disabled Do you think of yourself as: Straight/Heterosexual Current gender identity: Female Physical Exam Const: COMMON NORMALS: no acute distress, patient oriented x3 and alert GENERAL APPEARANCE: cooperative NUTRITIONAL APPEARANCE: obese OTHER: Patient is laying reclined on the stretcher in no acute distress. She is able to give history with no difficulty. She is interactive with exam appropriately. No family is at bedside at time of exam HENMT: COMMON NORMALS: normocephalic and atraumatic HEAD & SCALP: normocephalic and atraumatic Chest: CHEST: Yes Symmetrical chest wall rise Resp: COMMON NORMALS: normal respiratory effort EFFORT & INSPECTION: Yes able to speak in complete sentences Extremity: RIGHT LOWER EXTREMITY: Yes knee joint (No ecchymosis or abrasions noted. Tenderness to palpation.) LEFT LOWER EXTREMITY: Yes knee joint (No ecchymosis or abrasions noted. Tenderness to palpation.) Neuro: COMMON NORMALS: patient oriented x3 SENSORIUM/ORIENTATION: Yes alert Psych: COMMON NORMALS: cooperative Course Vital Signs: Vital signs: Vital Signs Temperature 97.4 F L 01/16/25 21:30 Pulse Rate 96 01/16/25 22:30 Blood Pressure 111/79 01/16/25 22:30 Pulse Oximetry 99 01/16/25 22:30 Oxygen Delivery Me thod Room Air 01/16/25 22:30 Oxygen Flow Rate 4 01/16/25 22:00 MDM - Extremity (Nontraumatic) Medical Decision Making 59yo female presents via EMS from skilled nursing for evaluation of bilateral knee pain following a fall that occurred between 0 & 1999 this evening. Patient reports that she does not normally ambulate, she uses a wheelchair. States they were using the sit to stand when the patient's knees buckled and she was lowered to the ground. States that her legs went underneath her. Patient reports that she has bilateral knee pain rating a 9/10. Patient states that she does also use a Pelon lift. Patient is on oxygen at 4 L continuously. Patient is nontoxic in appearance. Vital signs are stable. X-rays of the left knee reveals no definitive acute fracture or traumatic malalignment. Severe tricompartmental degenerative changes of the knee joint greatest involving the medial tibiofemoral compartments where there is subchondral sclerosis, marginal osteophytosis, and near [id number] articulation. Small knee joint effusion noted. X-ray of the right knee reveals no definitive acute fracture or traumatic malalignment. Severe tricompartmental degenerative changes of the knee joint greatest involving the medial tibiofemoral compartment where there is subchondral sclerosis, marginal osteophytosis, and near [id number] articulation. Small knee joint effusion. Discussed these findings with patient. Patient is not typically ambulatory and does use a wheelchair. States that she always has pain in her knees. Will proceed with lidocaine patches to avoid medication interactions and increased sedation. Discussed with patient the majority of her pain to the knees is likely related to the significant arthritis. Recommend she follow-up with her doctor within a week for recheck. Return precautions provided. Patient states understanding and has no further questions or concerns at this time. Medical Records I reviewed the patient's medical records. Lab Data Radiology Impressions Knee X-Ray 01/16/25 21:42 IMPRESSION: As above. All radiology interpretation(s) finalized by discharge Discharge Plan Discharge Patient Disposition: Home Clinical Impression: Acute bilateral knee pain, Tricompartment osteoarthritis of knee Condition: Stable Prescriptions: New lidocaine 5 % adhesive patch,medicated 2 patch topical DAILY Qty: 30 0RF Rx Instructions: apply 1 patch to each knee daily No Action gabapentin 300 mg capsule 300 mg PO TID@0500,1300,2100 pantoprazole 40 mg tablet,delayed release (DR/EC) 40 mg PO DAILY@0500 (DME) Dexcom G7 Sensor Device See Rx Instructions .Route Qty: 3 3RF Rx Instructions: As directed (DME) Dexcom G7 Energy Conservation Representative [facility] See Rx Instructions .Route Qty: 1 0RF Rx Instructions: As directed (DME) diabetic shoes w/ 3 inserts See Rx Instructions .Route .MEDSUPPLY Qty: 1 0RF Rx Instructions: As directed cetirizine 10 mg tablet 10 mg PO DAILY PRN (Reason: Allergy Symptoms) albuterol sulfate 1.25 mg/3 mL solution for nebulization 2.5 mg inhalation QID metoprolol succinate 100 mg tablet extended release 24 hr 100 mg PO DAILY topiramate 50 mg capsule,extended release 24hr 50 mg PO DAILY guaifenesin 600 mg tablet extended release 12hr 600 mg PO Q12H PRN (Reason: ALLERGIES) Ozempic 1 mg/dose (4 mg/3 mL) pen injector 1 mg SUBCUT .weekly ondansetron HCl 4 mg tablet 4 mg PO Q6H PRN (Reason: Nausea And Vomiting) levothyroxine 25 mcg tablet 25 mcg PO DAILY@0500 sumatriptan succinate [Imitrex] 25 mg tablet 25 mg PO Q6H PRN (Reason: Migraine Headache) Eliquis 5 mg tablet 5 mg PO Q12H acetaminophen 325 mg Tablet 650 mg PO Q4H PRN (Reason: pain or elevated temp) benzonatate 100 mg capsule 100 mg PO QID PRN (Reason: Cough) morphine 15 mg tablet extended release 15 mg PO BID duloxetine 60 mg capsule,delayed release(DR/EC) 60 mg PO DAILY Fiasp FlexTouch U-100 Insulin 100 unit/mL (3 mL) insulin pen See Rx Instructions .ROUTE .COMPLEX Rx Instructions: inject sliding scale BID 0-149=0 150-200=3 201-500=5 251-300=7 301-350=9 351-400=11 Discharge Orders: Discharge ED (Routine); Ordered 01/16/25 Ordered By: Humberto Dobbins Referrals: Ethan Ricci MD [Primary Care Provider, Internal Medicine] Discharge Diet: Usual diet Discharge Activity: Increase activity as tolerated Patient Instructions: Pain Management, Patient Portal & Meli Instructions Activity Restrictions/Additional Instructions: No fractures noted on the x-rays today. You do have severe osteoarthritis of both knees. Lidocaine patches have been sent to your pharmacy to help with the pain Please follow-up with primary care within 1 week for recheck, sooner if needed Return to the emergency department if any rapid worsening symptoms, further injury, and as needed Print Language: Yoruba Coding Level of Care Code ED Shop Repairer for Tanner Chavez
[2025-01-17 00:56] VITALS: BP 111/77; PULSE 93; O2SAT 97
== END 2025-01-17 00:58 | disposition home or self-care (01) ==
PROVIDERS: Emergency Provider Nurse Practitioner; PCP Internal Medicine
DX: M17.0 Bilateral primary osteoarthritis of knee (principal); W19.XXXA Unspecified fall, initial encounter; E11.22 Type 2 diabetes mellitus with diabetic chronic kidney disease; I13.0 Hypertensive heart and chronic kidney disease with heart failure and stage 1 through stage 4 chronic kidney disease, or unspecified chronic kidney disease; N18.4 Chronic kidney disease, stage 4 (severe); I50.9 Heart failure, unspecified; Z87.891 Personal history of nicotine dependence
CPT/HCPCS: 73562; 99283; J9999

== ENCOUNTER → 2025-03-08 09:07 | Outpatient (BNVA) | payer OTHER, MEDICAID, SELFPAY | PROVIDERS: PCP Internal Medicine; Visit Provider Internal Medicine | DX: E03.9 Hypothyroidism, unspecified (principal); E11.22 Type 2 diabetes mellitus with diabetic chronic kidney disease; E78.2 Mixed hyperlipidemia; I12.9 Hypertensive chronic kidney disease with stage 1 through stage 4 chronic kidney disease, or unspecified chronic kidney disease; N18.4 Chronic kidney disease, stage 4 (severe); E66.01 Morbid (severe) obesity due to excess calories; Z79.4 Long term (current) use of insulin | CPT/HCPCS: 99214 ==

== ENCOUNTER → 2025-03-21 07:33 | Outpatient (BNVA) | payer OTHER, MEDICAID, SELFPAY | PROVIDERS: PCP Internal Medicine; Visit Provider Podiatrist Foot & Ankle Surgery | DX: E11.8 Type 2 diabetes mellitus with unspecified complications (principal); L60.3 Nail dystrophy; N18.9 Chronic kidney disease, unspecified; G62.9 Polyneuropathy, unspecified; E11.29 Type 2 diabetes mellitus with other diabetic kidney complication; E11.42 Type 2 diabetes mellitus with diabetic polyneuropathy; Z79.4 Long term (current) use of insulin | CPT/HCPCS: 11721; 99213 ==